=== PATIENT | male | born 1940 | race Caucasian/White ===

== ENCOUNTER 2018-12-15 13:26 | Emergency (ER) | payer MEDICARE, SELFPAY ==
[2018-12-15 13:25] VITALS: BP 139/80; PULSE 85; RESP 14; TEMP 36.7; O2SAT 100; BMI 24.3
--- NOTE | 2018-12-15 14:52 | ED.GIBLEED ---
HPI - GI Bleed <Grace Kahn PA-C - Last Filed: 12/15/18 21:17> General Chief complaint: GI Bleed Stated complaint: REAR END ISSUES Time Seen by Provider: 12/15/18 15:08 Source: patient Mode of arrival: ambulatory Limitations: no limitations History of Present Illness HPI Narrative: This 78-year-old gentleman comes to ED today due to feeling like he has a plumbing change . His recalls him getting up this morning in telling her that he needed to come to the emergency department due to a sensation of tubes hanging from his bottom. He states that he is feeling well currently without any new problems, and this sensation is actually better now. He noted that his brief was quite shredded when he woke up that he wears for urinary incontinence. He states that he did have 1 episode of diarrhea yesterday morning, none since (no bowel movement yet today). He denies any abdominal pain, nausea or vomiting. He has not noted any blood in his stools yesterday. His appetite is normal. He has not had chills or sweats. He denies any pain anywhere currently. Related Data Home Medications Medication Instructions Recorded Confirmed ascorbic acid (vitamin C) 500 mg PO DAILY 12/15/18 12/15/18 aspirin 81 mg PO DAILY 12/15/18 12/15/18 cholecalciferol (vitamin D3) 1,000 unit PO DAILY 12/15/18 12/15/18 [Vitamin D3] cyanocobalamin (vitamin B-12) 500 mcg PO DAILY 12/15/18 12/15/18 [Vitamin B-12] multivitamin 1 tab PO DAILY 12/15/18 12/15/18 Allergies Allergy/AdvReac Type Severity Reaction Status Date / Time hydromorphone [From Dilaudid] Allergy Verified 12/15/18 13:41 Review of Systems <Grace Kahn PA-C - Last Filed: 12/15/18 21:17> Review of Systems ROS Unobtainable: All systems reviewed & are unremarkable except as noted in HPI and below Exam <Grace Kahn PA-C - Last Filed: 12/15/18 21:17> Narrative Exam Narrative: GENERAL APPEARANCE: Patient sitting comfortably, in no distress. LUNGS: Clear to auscultation bilaterally. HEART: Rate and rhythm regular without murmur, normal S1 and S2, no S3 or S4. ABDOMEN: Soft, nontender, nondistended, +bowel sounds x4 quadrants RECTAL: The brief that patient is wearing is partly shredded and detached around the rectal area and there is a fair amount of dried stool on it. There is no prolapse or foreign body visible. On internal exam no masses or foreign body encountered. Initial Vital Signs Initial Vital Signs: Vital Signs Temperature 98.1 F 12/15/18 13:25 Pulse Rate 85 12/15/18 13:25 Respiratory Rate 14 12/15/18 13:25 Blood Pressure 139/80 12/15/18 13:25 Pulse Oximetry 100 12/15/18 13:25 <Nish Gentile DO - Last Filed: 12/16/18 07:42> Initial Vital Signs Initial Vital Signs: Vital Signs Temperature 98.1 F 12/15/18 13:25 Pulse Rate 85 12/15/18 13:25 Respiratory Rate 14 12/15/18 13:25 Blood Pressure 139/80 12/15/18 13:25 Pulse Oximetry 100 12/15/18 13:25 Course <Grace Kahn PA-C - Last Filed: 12/15/18 21:17> Vital Signs - 8 hr 12/15/18 13:25 12/15/18 15:35 Temperature 98.1 F Pulse Rate 85 74 Respiratory Rate 14 16 Blood Pressure 139/80 Blood Pressure [Right Arm] 133/87 Pulse Oximetry 100 100 <Nish Gentile DO - Last Filed: 12/16/18 07:42> Vital Signs - 8 hr 12/15/18 13:25 12/15/18 15:35 Temperature 98.1 F Pulse Rate 85 74 Respiratory Rate 14 16 Blood Pressure 139/80 Blood Pressure [Right Arm] 133/87 Pulse Oximetry 100 100 Discharge Plan Departure Patient Disposition: Home Clinical Impression: Foreign body in anus and rectum, sequela Discharge Date/Time: 12/15/18 15:37 Interventions: ED Discharge Assessment Last Done: 12/15/18 15:36 Activity Restrictions/Additional Instructions: Since you are feeling well today, you can return home. From what you have described to me and what I see, I agree with you that it is very likely that part of your brief had shredded and was temporarily stuck in your bottom. The brief that you were wearing today was quite torn up and had a lot of old stool on it, so this is probably what you felt when you woke up. This likely happened when you were asleep. You may wish to use moist wipes to help with cleaning if needed. Since you are not having any symptoms now such as abdominal pain, vomiting, or fever, you can resume your usual activities. It sounds like your diarrhea was temporary since it only happened once yesterday and not at all today. If your bowel movements are not back to normal in the next few days, please follow-up with your PCP, and if you do have any of the concerning symptoms that we talked about such as profuse vomiting, abdominal pain, or fever, please return to the emergency department Prescriptions: No Action multivitamin Tablet 1 tab PO DAILY RF: 0 aspirin 81 mg Tablet,Delayed Release (Dr/Ec) 81 mg PO DAILY RF: 0 cyanocobalamin (vitamin B-12) [Vitamin B-12] 500 mcg Tablet 500 mcg PO DAILY RF: 0 ascorbic acid (vitamin C) 500 mg Capsule, Extended Release 500 mg PO DAILY RF: 0 cholecalciferol (vitamin D3) [Vitamin D3] 1,000 unit Tablet 1,000 unit PO DAILY RF: 0 Referrals: Bill Alarcon MD [Primary Care Provider] - <Nish Gentile DO - Last Filed: 12/16/18 07:42> Cosign ED Attending Alexys Attestation: I was available for consultation during this patient's emergency department encounter
[2018-12-15 15:35] VITALS: BP 133/87; PULSE 74; RESP 16; O2SAT 100
== END 2018-12-15 15:37 | disposition home or self-care (01) ==
PROVIDERS: Emergency Provider Internal Medicine; PCP Internal Medicine
DX: T18.5XXS Foreign body in anus and rectum, sequela (principal)
CPT/HCPCS: 99282

== ENCOUNTER 2019-01-02 15:21 | Emergency (ER) | payer MEDICARE, SELFPAY ==
[2019-01-02 15:34] VITALS: BP 150/93; PULSE 78; RESP 20; TEMP 36.1; O2SAT 100
--- NOTE | 2019-01-02 16:15 | PC.NURSE ---
attempt to assess patient. I removed all clothing and placed patient in gown. Patient has dry skin, appears to have been wearing his socks for multiple days, and appears to have not bathed in a while. Patient refused to take off brief and would like to wait for doctor. When asked patient why he is here he tells me he has drains and they are not working, states he has tinus problems and points to his genitals. also states he has a coil in his arm that blocks things that was placed in the 80s. When i ask questions patient seems confused and is unable to answer the question that I have asked. Patient refuses further assessment until the provider can evaluate.
[2019-01-02 16:20] VITALS: BP 126/81; PULSE 73; RESP 18; TEMP 36.8; O2SAT 99
[2019-01-02 17:00] VITALS: BP 132/82; PULSE 69; O2SAT 99
--- NOTE | 2019-01-02 17:06 | ED_ITS ---
HPI - Male Genitourinary <DONALD Rodriguez - Last Filed: 01/02/19 22:11> General Chief complaint: Urogenital-Male Stated complaint: URINARY ISSUES, BOWL MOVEMENT ISSUES Time Seen by Provider: 01/02/19 16:15 Source: patient Mode of arrival: ambulatory Limitations: no limitations History of Present Illness HPI Narrative: 78-year-old male with history of prostate cancer and is a nonsmoker here for complaint of redness and irritation to his scrotal area over the past several days. He wears diapers due to having incontinence post prostatectomy secondary to prostate cancer. He reports that he has not changed his diaper in the last 2 weeks. He denies any urinary symptoms. No fevers or chills. No nausea vomiting. Positive p.o. intake. When asked the patient why he he has not changed his diaper for that amount of timeframe patient states I dont have a good answer for you. He denies any trauma to the area. No abdominal pain. No flank pain. MD Complaint: other Related Data Home Medications Medication Instructions Recorded Confirmed ascorbic acid (vitamin C) 500 mg PO DAILY 12/15/18 01/02/19 aspirin 81 mg PO DAILY 12/15/18 01/02/19 cholecalciferol (vitamin D3) 1,000 unit PO DAILY 12/15/18 01/02/19 [Vitamin D3] cyanocobalamin (vitamin B-12) 500 mcg PO DAILY 12/15/18 01/02/19 [Vitamin B-12] multivitamin 1 tab PO DAILY 12/15/18 01/02/19 Previous Rx's Medication Instructions Recorded ketoconazole See Rx Instructions .ROUTE 01/02/19 .COMPLEX #30 gram zinc oxide See Rx Instructions .ROUTE 01/02/19 .COMPLEX #99 gram Allergies Allergy/AdvReac Type Severity Reaction Status Date / Time hydromorphone [From Dilaudid] Allergy Verified 12/15/18 13:41 Review of Systems <DONALD Rodriguez - Last Filed: 01/02/19 22:11> Constitutional Denies chills, Denies fatigue, Denies fever(s), Denies lethargy and Denies weakness Eyes Denies change in vision, Denies eye discharge, Denies irritation and Denies loss of vision ENT Ears, Nose, Mouth, and Throat: Denies change in voice, Denies neck pain and Denies sore throat Cardiovascular Denies dyspnea and Denies dyspnea on exertion Respiratory Denies cough, Denies dyspnea, Denies dyspnea on exertion and Denies wheezing Gastrointestinal Gastrointestinal: Denies abdominal pain, Denies change in bowel habits, Denies diarrhea, Denies nausea and Denies vomiting Genitourinary Comments: Redness and irritation to the scrotal area Musculoskeletal Denies neck pain Integumentary/Breasts Denies pruritus, Denies erythema, Denies rash and Denies wounds Neurologic Denies confusion, Denies loss of vision and Denies weakness Psychiatric Denies anxiety, Denies confusion, Denies depression, Denies homicidal ideation and Denies suicidal ideation Endocrine Denies fatigue and Denies flushing Hematologic/Lymphatic Denies easy bruising Allergic/Immunologic Denies wheezing PFSH <DONALD Rodriguez - Last Filed: 01/02/19 22:11> Medical History HTN (hypertension) (Chronic) History of prostate cancer (Chronic) Incontinence (Chronic) Surgical History History of prostatectomy (Resolved) History of squamous cell carcinoma excision (Resolved) Family History Other Family history non-contributory Social History Smoking Status: Never smoker Family History Other Family history non-contributory Social History Smoking Status: Never smoker Exam <DONALD Rodriguez - Last Filed: 01/02/19 22:11> Initial Vital Signs Initial Vital Signs: Vital Signs Temperature 96.9 F L 01/02/19 15:34 Pulse Rate 78 01/02/19 15:34 Respiratory Rate 20 01/02/19 15:34 Blood Pressure 150/93 H 01/02/19 15:34 Pulse Oximetry 100 01/02/19 15:34 Const General: cooperative and well developed Nutritional Appearance: well nourished Orientation: alert, awake, oriented x3 and not confused HENMT Mouth: oral mucosae normal and moist mucous membranes Eyes Conjunctivae: conjunctivae normal Sclera: sclerae normal Pupils: PERRL EOM: EOM intact bilaterally Resp Effort & Inspection: normal respiratory effort, able to speak in complete sentences, no respiratory distress and no use of accessory muscles Auscultation: clear to auscultation bilaterally, no rales, no rhonchi and no wheezes Cardio Rate: regular rate Rhythm: regular rhythm Heart Sounds: no click, no gallops, no murmurs and no rubs Other: Erythema to the scrotal area. No open lesions. No discharge. Skin General: no rashes or lesions noted, No jaundice and No petechiae Neuro General: alert, oriented x3, gait normal and no focal motor deficits Speech: speech normal <Yani Payan DO - Last Filed: 01/06/19 07:11> Initial Vital Signs Initial Vital Signs: Vital Signs Temperature 96.9 F L 01/02/19 15:34 Pulse Rate 78 01/02/19 15:34 Respiratory Rate 20 01/02/19 15:34 Blood Pressure 150/93 H 01/02/19 15:34 Pulse Oximetry 100 01/02/19 15:34 Course <DONALD Rodriguez - Last Filed: 01/02/19 22:11> Vital Signs - 8 hr 01/02/19 15:34 01/02/19 16:20 01/02/19 17:00 Temperature 96.9 F L 98.3 F Pulse Rate 78 73 69 Respiratory Rate 20 18 Blood Pressure 150/93 H Blood Pressure [Right Arm] 126/81 132/82 Pulse Oximetry 100 99 99 01/02/19 18:00 Temperature Pulse Rate 79 Respiratory Rate Blood Pressure Blood Pressure [Right Arm] 156/88 H Pulse Oximetry 100 <Yani Payan DO - Last Filed: 01/06/19 07:11> Vital Signs - 8 hr 01/02/19 15:34 01/02/19 16:20 01/02/19 17:00 Temperature 96.9 F L 98.3 F Pulse Rate 78 73 69 Respiratory Rate 20 18 Blood Pressure 150/93 H Blood Pressure [Right Arm] 126/81 132/82 Pulse Oximetry 100 99 99 01/02/19 18:00 Temperature Pulse Rate 79 Respiratory Rate Blood Pressure Blood Pressure [Right Arm] 156/88 H Pulse Oximetry 100 MDM - Male Genitourinary <DONALD Rodriguez - Last Filed: 01/02/19 22:11> [facility] Narrative Medical decision making narrative: Will treat for Anette with ketoconazole and also zinc oxide. Patient is instructed to change his diaper daily and keep area dry to whom irritation to the area. Follow up with primary care provider later this week. For any worsening symptoms return to the emergency room. Patient is staying in [facility] in [facility] and is looking for care facility for him to help with assisted living. Discharge Plan Departure Patient Disposition: Home Clinical Impression: Anette infection of genital region Discharge Date/Time: 01/02/19 18:48 Interventions: ED Discharge Assessment Last Done: 01/02/19 18:46 Instructions: Yeast Infection-Skin Activity Restrictions/Additional Instructions: Signs and symptoms presents as a fungal irritation to the genital area and dermatitis secondary to being moist and expose to urine and feces. Ensure your changing your diapers often. Keep area clean and dry. You are prescribed an antifungal creams use as directed. Follow up with primary care provider. Return emergency room for worsening symptoms. Prescriptions: New zinc oxide 15 % cream See Rx Instructions .ROUTE .COMPLEX Qty: 99 RF: 0 ketoconazole 2 % cream See Rx Instructions .ROUTE .COMPLEX Qty: 30 RF: 0 No Action multivitamin Tablet 1 tab PO DAILY RF: 0 aspirin 81 mg Tablet,Delayed Release (Dr/Ec) 81 mg PO DAILY RF: 0 cyanocobalamin (vitamin B-12) [Vitamin B-12] 500 mcg Tablet 500 mcg PO DAILY RF: 0 ascorbic acid (vitamin C) 500 mg Capsule, Extended Release 500 mg PO DAILY RF: 0 cholecalciferol (vitamin D3) [Vitamin D3] 1,000 unit Tablet 1,000 unit PO DAILY RF: 0 Referrals: Bill Alarcon MD [Primary Care Provider] - <Yani Payan DO - Last Filed: 01/06/19 07:11> Cosign ED Attending Rosetteature Attestation: I was immediately available in the department for consultation. This documentation has been reviewed and I agree with assessment and plan. Supervised by Yani Payan DO
[2019-01-02 18:00] VITALS: BP 156/88; PULSE 79; O2SAT 100
--- NOTE | 2019-01-02 18:21 | CM.SWNOTE ---
ED CHESS INSTRUCTOR NOTE Precipitant: Pt came to the emergency room due to some concerns re redness in his scrotum area. The only reason ED CHESS INSTRUCTOR became involved was there was an initial concern about whether there was self neglect and if it warranted a call to APS. Home situation/supports: Pt and his live in a 3 story home [place] where they have lived for over 40 years. They have been staying at the [facility] for the last couple of weeks both attending doctors visits and looking into Assisted Living Facilities for the pt. Initially they did not disclose this information and CLOTH PRINTER HELPER inquired why they were in [place] and had not [place]. Pt mentioned that PT suggested a walker or cane and he spoke of planning to receive PT services in [place]. At that point, pt's shared the plan for him to go to an [facility], hopefully temporarily. Intervention: CLOTH PRINTER HELPER gathered information, and provided both supportive and reflective listening. Pt spoke of these not being the gupta years. They no longer have any friends as all of their friends were older than them and are . Pt has a brother and a sister in [place], but it did not appear that they had a close relationship. Pt's does not have any close relationships. 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 Once pt and his revealed that they were remaining in [place] because of the plan to go to an GROUP HOME, they seemed much more forthcoming in their conversation and were no longer vague. Goal Pt is being taken back to the [facility] with his and driven by police. The taxi had stopped providing service this evening due to the winter weather conditions. It was determined that APS was not necessary as pt is alert, oriented, decisional and both he and his are jointly problem solving, aware that the pt is in need of increased care and support. No further SW needs noted. Discharge Planning/Care Management ED Crisis Response Assessment Start: 01/02/19 18:15 Freq: Status: Active Protocol: Document 01/02/19 18:15 (Rec: 01/02/19 18:21 [id number]) ED Crisis Response Assessment CHESS INSTRUCTOR Assessment Type Other Reason for CHESS INSTRUCTOR Referral question about whether APS was neeed Referred by JIMBO Harris Presenting Problem It was unclear why pt came to the emergency room, but it seemed as though the main reason was some redness in the scrotum area. Mental health diagnosis none known. VOA/CMS check No Suicidal thoughts No Thoughts of harm to others No Risk factor comments declining health Relevant Medical History prostate cancer Crisis Plan Pt to go back to [facility] with his . Resources Provided none needed. Action taken Sent home: family/friends Additional Comment It was thought that pt might need APS as there was some concern that pt and were both cnfused and that she is the caregiver. After ED CHESS INSTRUCTOR met with pt, it did not seem as though they were confused as much as avoidant. Pt's frequently stated You ask a lot of questions. It turned out that pt is in process of going into an assisted living facility which is why they have been in [place] for a few weeks. Pt's stated that her hsuband has a deposit at [facility] and they are awaiting a 1 bedroom because right now they only have 2 suites.
== END 2019-01-02 18:48 | disposition home or self-care (01) ==
PROVIDERS: Emergency Provider Nurse Practitioner Family; PCP Internal Medicine
DX: B37.49 Other urogenital candidiasis (principal)
CPT/HCPCS: 99283

== ENCOUNTER 2019-01-17 19:44 | Observation (INO) | payer MEDICARE, SELFPAY ==
[2019-01-17 19:45] VITALS: BP 162/96; PULSE 87; RESP 20; TEMP 36.6; O2SAT 100
[2019-01-17 19:51] VITALS: BP 162/96; PULSE 87; RESP 20; TEMP 36.6; O2SAT 100
--- NOTE | 2019-01-17 20:01 | PC.NURSE ---
Attempted to call to inform her that patient is here. Busy signal. Will try to call at a different time.
--- NOTE | 2019-01-17 20:36 | ED.AMS ---
HPI - Altered Mental Status General Chief Complaint: Altered Mental Status Stated Complaint: Confused Time Seen by Provider: 01/17/19 19:46 Source: patient, EMS and RN notes reviewed Mode of arrival: EMS Limitations: altered mental status History of Present Illness HPI narrative: 78-year-old male nonsmoker presents by EMS after staff at his assisted found him to be acting quite different than his baseline tonight. He had no focal neurologic findings but was confused and under Ng nonsensical words and was found to require significant assistance ambulating. He normally is fully conversive and ambulates without difficulty. He does get a bit confused and tired in the evening with slow and purposeful ambulation but he can get out about. There is no obvious source and the patient has had no fever no injury and no change in medications. MD complaint: altered mental status Onset (ago): hour(s) Timing confirmed by: caregiver Severity: moderate Consistency of symptoms: constant Associated symptoms: denies other symptoms Related Data Home Medications Medication Instructions Recorded Confirmed aspirin 81 mg PO DAILY 12/15/18 01/17/19 cholecalciferol (vitamin D3) 1,000 unit PO DAILY 12/15/18 01/17/19 [Vitamin D3] cyanocobalamin (vitamin B-12) 500 mcg PO DAILY 12/15/18 01/17/19 [Vitamin B-12] Previous Rx's Medication Instructions Recorded ketoconazole See Rx Instructions .ROUTE 01/02/19 .COMPLEX #30 gram zinc oxide See Rx Instructions .ROUTE 01/02/19 .COMPLEX #99 gram Allergies Allergy/AdvReac Type Severity Reaction Status Date / Time hydromorphone [From Dilaudid] Allergy Verified 12/15/18 13:41 Review of Systems Review of Systems ROS Unobtainable: Unobtainable due to mental status/LOC Constitutional Denies chills, Denies fever(s), Denies lethargy and Denies weakness Eyes Denies change in vision, Denies eye discharge, Denies irritation and Denies loss of vision ENT Ears, Nose, Mouth, and Throat: Denies change in voice, Denies neck pain and Denies sore throat Cardiovascular Denies chest pain, Denies irregular heart rhythm, Denies lightheadedness, Denies palpitations, Denies dyspnea, Denies dyspnea on exertion and Denies orthopnea Respiratory Denies cough, Denies dyspnea, Denies dyspnea on exertion and Denies wheezing Gastrointestinal Gastrointestinal: Denies abdominal pain, Denies change in bowel habits, Denies diarrhea, Denies nausea and Denies vomiting Genitourinary Denies hematuria, Denies flank pain, Denies urinary incontinence and Denies urinary urgency Musculoskeletal Denies neck pain Integumentary/Breasts Denies pruritus, Denies erythema, Denies rash and Denies wounds Neurologic Denies confusion, Denies loss of vision and Denies weakness Psychiatric Denies anxiety, Denies confusion, Denies depression, Denies homicidal ideation and Denies suicidal ideation Endocrine Denies palpitations Hematologic/Lymphatic Denies easy bruising Allergic/Immunologic Denies wheezing Exam Narrative Exam Narrative: GENERAL: 78-year-old male is pleasantly confused but in no obvious or significant distress. He is well cared for and not disheveled. There are no obvious focal neurologic findings HEAD: Atraumatic. Normocephalic. No temporal or scalp tenderness. EYES: Pupils equal round and reactive. Extraocular motions intact. No scleral icterus. No injection or drainage. ENT: Nose without bleeding, purulent drainage or septal hematoma. Throat without erythema, tonsillar hypertrophy or exudate. Uvula midline. Airway patent. NECK: Trachea midline. No JVD or lymphadenopathy. Supple, nontender, no meningeal signs. CARDIOVASCULAR: Regular rate and rhythm without murmurs, gallops, or rubs. RESPIRATORY: Clear to auscultation. Breath sounds equal bilaterally. No wheezes, rales, or rhonchi. GASTROINTESTINAL: Abdomen soft, non-tender, nondistended. No hepato-splenomegaly, or palpable masses. No guarding. EXTREMITIES: No clubbing, cyanosis, or edema. No joint tenderness, effusion, or edema noted. BACK: Nontender without deformity or crepitance. No flank tenderness. SKIN: No rash or erythema. Initial Vital Signs Initial Vital Signs: Vital Signs Temperature 97.8 F 01/17/19 19:45 Pulse Rate 87 01/17/19 19:45 Respiratory Rate 20 01/17/19 19:45 Blood Pressure 162/96 H 01/17/19 19:45 Pulse Oximetry 100 01/17/19 19:45 Course Orders Ordered: ED Orders 01/17/19 20:38 XR chest 1V Stat 01/17/19 20:39 CT head/brain wo con Stat 01/17/19 21:04 Acetaminophen Stat Complete Blood Count AUTO DIFF Stat Comprehensive Metabolic Panel Stat Ethanol (ETOH) Stat Lactate (Lactic Acid) Stat Partial Thromboplastin Time Stat Procalcitonin Urgent Prolactin Stat Prothrombin Time INR Stat Salicylate Stat Thyroid Stimulating Hormone Stat Troponin I Stat 01/17/19 22:08 Urine Drug Screen, Rapid Stat 01/17/19 23:41 Consult to Occupational Therapy Evaluate & Treat Consult to Physical Therapy Evaluate & Treat 01/17/19 23:42 Consult to Speech Therapy Evaluate & Treat 01/18/19 MR stroke Routine 01/18/19 05:00 Basic Metabolic Panel DAILY Complete Blood Count AUTO DIFF DAILY 01/19/19 05:00 Basic Metabolic Panel DAILY Complete Blood Count AUTO DIFF DAILY 01/20/19 05:00 Basic Metabolic Panel DAILY 01/21/19 05:00 Basic Metabolic Panel DAILY Acetaminophen (Tylenol) 650 mg PO Q6HR PRN PRN Reason: As Needed for Fever/Mild Pain Last Admin: 01/18/19 01:36 Dose: 650 mg Aspirin (Aspirin Ec) 81 mg PO DAILY [facility] Enoxaparin Sodium (Lovenox) 40 mg SUBCUT DAILY [facility] Sodium Chloride (Normal Saline 0.9%) 1,000 mls @ 125 mls/hr IV CONT MELBA Last Admin: 01/18/19 04:47 Dose: 125 mls/hr Admin: 01/18/19 01:31 Dose: Not Given Ketoconazole (Nizoral 2% Cream (15 Gm)) 1 applic TOP DAILY [facility] Ondansetron HCl (Zofran) 4 mg IV Q8HR PRN PRN Reason: Nausea And Vomiting Pantoprazole Sodium (Protonix) 20 mg PO 0600 [facility] Sodium Chloride (Normal Saline 0.9% Flush) 10 ml IV PRN PRN PRN Reason: Flush Discontinued Medications Sodium Chloride (Normal Saline 0.9%) 1,000 mls @ 150 mls/hr IV CONT MELBA Last Infusion: 01/18/19 04:47 Dose: 125 mls/hr Infusion: 01/18/19 01:30 Dose: 125 mls/hr Admin: 01/17/19 21:11 Dose: 150 mls/hr Vital Signs - 8 hr 01/17/19 21:15 01/17/19 22:24 01/17/19 23:00 Temperature Pulse Rate 79 83 78 Respiratory Rate 18 16 16 Blood Pressure Blood Pressure [Right Arm] 128/81 136/94 H 132/88 Pulse Oximetry 100 99 100 01/17/19 23:30 01/18/19 00:00 01/18/19 01:07 Temperature 98.4 F 98 F Pulse Rate 81 82 82 Respiratory Rate 16 15 16 Blood Pressure 147/77 H Blood Pressure [Right Arm] 139/82 128/77 Pulse Oximetry 98 97 95 01/18/19 01:27 Temperature 98.0 F Pulse Rate 82 Respiratory Rate 16 Blood Pressure 147/77 H Blood Pressure [Right Arm] Pulse Oximetry 95 MDM - Altered Mental Status Differential Diagnosis Likely altered mental status Medical Records Attestation: I reviewed the patient's medical records. Lab Data Attestation: I reviewed the patient's lab results. Result diagrams: 01/17/19 21:04 01/17/19 21:04 Lab Results 01/17/19 01/17/19 01/17/19 Range/Units 21:04 21:04 21:04 WBC 6.3 (4.5-11.0) X10^3/uL RBC 4.40 L (4.5-5.9) X10^6/uL Hgb 13.4 L (13.5-17.5) g/dL Hct 39.7 L (41-53) % MCV 90.4 (80-100) fL MCH 30.4 (26-34) PG MCHC 33.6 (30-36) % RDW 14.3 (11.6-14.8) % Plt Count 170 (150-400) X10^3/uL Neut % (Auto) 65.0 (50-75) % Lymph % (Auto) 20.5 L (25-40) % [place] % (Auto) 10.3 (3-14) % Eos % (Auto) 3.6 (2-4) % Baso % (Auto) 0.6 (0-2) % Neut # (Auto) 4100 (4389-7788) /uL Lymph # (Auto) 1300 (0126-0296) /uL [place] # (Auto) 600 (0-900) /uL Eos # (Auto) 200 (0-450) /uL Baso # (Auto) 0 (0-100) /uL PT 12.1 (10.1-12.7) SECONDS INR 1.1 (0.9-1.3) APTT 30 (26.4-36.2) SECONDS Sodium 141 (137-145) mmol/L Potassium 3.8 (3.4-5.1) mmol/L Chloride 105 (98-107) mmol/L Carbon Dioxide 30 (22-32) mmol/L BUN 22 H (9-20) mg/dL Creatinine 0.90 (0.66-1.25) mg/dL Estimated GFR > 60.0 (>60) mL/min BUN/Creatinine Ratio 24.4 H (6-22) Glucose 87 (80-110) mg/dL Lactate (0.7-2.1) mmol/L Calcium 9.2 (8.4-10.2) mg/dL Total Bilirubin 0.5 (0.2-1.3) mg/dL AST 30 (17-59) IU/L ALT 32 (21-72) IU/L Alkaline Phosphatase 76 (38-126) U/L Troponin I < 0.012 (0.01-0.034) ng/mL Total Protein 6.7 (6.3-8.2) g/dL Albumin 3.8 (3.5-5.0) g/dL Globulin 2.9 (1.7-4.1) g/dL Albumin/Globulin Ratio 1.3 (1.0-2.8) Procalcitonin (<0.5) ng/mL TSH (0.47-4.68) uIU/mL Prolactin 18.8 H (3.7-17.9) ng/mL Salicylates < 1.0 (<20) mg/dL Urine Opiates Screen (Negative) Ur Oxycodone Screen (Negative) Urine Methadone Screen (Negative) Acetaminophen < 10 L (10-30) ug/mL Ur Barbiturates Screen (Negative) U Tricyclic Antidepress (Negative) Ur Phencyclidine Scrn (Negative) Ur Amphetamines Screen (Negative) U Methamphetamines Scrn (Negative) Ur MDMA Scrn (Ecstasy) (Negative) U Benzodiazepines Scrn (Negative) Urine Cocaine Screen (Negative) U Marijuana (THC) Screen (Negative) Ethyl Alcohol < 10 mg/dL 01/17/19 01/17/19 01/17/19 Range/Units 21:04 21:04 21:04 WBC (4.5-11.0) X10^3/uL RBC (4.5-5.9) X10^6/uL Hgb (13.5-17.5) g/dL Hct (41-53) % MCV (80-100) fL MCH (26-34) PG MCHC (30-36) % RDW (11.6-14.8) % Plt Count (150-400) X10^3/uL Neut % (Auto) (50-75) % Lymph % (Auto) (25-40) % [place] % (Auto) (3-14) % Eos % (Auto) (2-4) % Baso % (Auto) (0-2) % Neut # (Auto) (8721-9922) /uL Lymph # (Auto) (4593-5904) /uL [place] # (Auto) (0-900) /uL Eos # (Auto) (0-450) /uL Baso # (Auto) (0-100) /uL PT (10.1-12.7) SECONDS INR (0.9-1.3) APTT (26.4-36.2) SECONDS Sodium (137-145) mmol/L Potassium (3.4-5.1) mmol/L Chloride (98-107) mmol/L Carbon Dioxide (22-32) mmol/L BUN (9-20) mg/dL Creatinine (0.66-1.25) mg/dL Estimated GFR (>60) mL/min BUN/Creatinine Ratio (6-22) Glucose (80-110) mg/dL Lactate 0.8 (0.7-2.1) mmol/L Calcium (8.4-10.2) mg/dL Total Bilirubin (0.2-1.3) mg/dL AST (17-59) IU/L ALT (21-72) IU/L Alkaline Phosphatase (38-126) U/L Troponin I (0.01-0.034) ng/mL Total Protein (6.3-8.2) g/dL Albumin (3.5-5.0) g/dL Globulin (1.7-4.1) g/dL Albumin/Globulin Ratio (1.0-2.8) Procalcitonin < 0.05 (<0.5) ng/mL TSH 1.89 (0.47-4.68) uIU/mL Prolactin (3.7-17.9) ng/mL Salicylates (<20) mg/dL Urine Opiates Screen (Negative) Ur Oxycodone Screen (Negative) Urine Methadone Screen (Negative) Acetaminophen (10-30) ug/mL Ur Barbiturates Screen (Negative) U Tricyclic Antidepress (Negative) Ur Phencyclidine Scrn (Negative) Ur Amphetamines Screen (Negative) U Methamphetamines Scrn (Negative) Ur MDMA Scrn (Ecstasy) (Negative) U Benzodiazepines Scrn (Negative) Urine Cocaine Screen (Negative) U Marijuana (THC) Screen (Negative) Ethyl Alcohol mg/dL 01/17/19 Range/Units 22:08 WBC (4.5-11.0) X10^3/uL RBC (4.5-5.9) X10^6/uL Hgb (13.5-17.5) g/dL Hct (41-53) % MCV (80-100) fL MCH (26-34) PG MCHC (30-36) % RDW (11.6-14.8) % Plt Count (150-400) X10^3/uL Neut % (Auto) (50-75) % Lymph % (Auto) (25-40) % [place] % (Auto) (3-14) % Eos % (Auto) (2-4) % Baso % (Auto) (0-2) % Neut # (Auto) (2880-8586) /uL Lymph # (Auto) (7026-3727) /uL [place] # (Auto) (0-900) /uL Eos # (Auto) (0-450) /uL Baso # (Auto) (0-100) /uL PT (10.1-12.7) SECONDS INR (0.9-1.3) APTT (26.4-36.2) SECONDS Sodium (137-145) mmol/L Potassium (3.4-5.1) mmol/L Chloride (98-107) mmol/L Carbon Dioxide (22-32) mmol/L BUN (9-20) mg/dL Creatinine (0.66-1.25) mg/dL Estimated GFR (>60) mL/min BUN/Creatinine Ratio (6-22) Glucose (80-110) mg/dL Lactate (0.7-2.1) mmol/L Calcium (8.4-10.2) mg/dL Total Bilirubin (0.2-1.3) mg/dL AST (17-59) IU/L ALT (21-72) IU/L Alkaline Phosphatase (38-126) U/L Troponin I (0.01-0.034) ng/mL Total Protein (6.3-8.2) g/dL Albumin (3.5-5.0) g/dL Globulin (1.7-4.1) g/dL Albumin/Globulin Ratio (1.0-2.8) Procalcitonin (<0.5) ng/mL TSH (0.47-4.68) uIU/mL Prolactin (3.7-17.9) ng/mL Salicylates (<20) mg/dL Urine Opiates Screen Negative (Negative) Ur Oxycodone Screen Negative (Negative) Urine Methadone Screen Negative (Negative) Acetaminophen (10-30) ug/mL Ur Barbiturates Screen Negative (Negative) U Tricyclic Antidepress Negative (Negative) Ur Phencyclidine Scrn Negative (Negative) Ur Amphetamines Screen Negative (Negative) U Methamphetamines Scrn Negative (Negative) Ur MDMA Scrn (Ecstasy) Negative (Negative) U Benzodiazepines Scrn Negative (Negative) Urine Cocaine Screen Negative (Negative) U Marijuana (THC) Screen Negative (Negative) Ethyl Alcohol mg/dL Urine Dip Bedside Urine Glucose Negative Bedside Urine Bilirubin - Negative Bedside Urine Ketone - Negative Urine Specific [place] 1.020 Bedside Urine Occult Blood - Negative Bedside Urine pH 7.0 Bedside Urine Protein +/- 15 Bedside Urine Urobilinogen - Negative Bedside Urine Nitrite - Negative Bedside Urine Leukocytes - Negative Esterase Imaging Data CT scan - head: Radiologist's impression: Jimi Montes 78 M [address] [place] [address] CT Scan Report Signed Patient: SimonJimi CMR#: [id number] : 8Acct:[id number] Age/Sex: 78 / MDate of Service: 01/17/19 Loc: ED Accession Number: [id number] Procedure: CT head/brain wo con Ordering Provider: Bryan Massey D.O. PROCEDURE: CT HEAD/BRAIN WO CON INDICATIONS: mental status change, confusion TECHNIQUE: Noncontrast 4.5 mm thick angled axial sections acquired from the foramen magnum to the vertex, with coronal and sagittal reformats. For radiation dose reduction, the following was used: automated exposure control, adjustment of mA and/or kV according to patient size. COMPARISON: [facility], CT, HEAD W&WO CONTRAST, 06/15/2016, 13:30. FINDINGS: Image quality: Excellent. CSF spaces: Basal cisterns are patent. No extra-axial fluid collections. The ventricles are symmetric in size and shape. Brain: No intracranial bleeds or masses. There is cerebral volume loss for age, with resultant ventricular and sulcal prominence. There are periventricular and deep white matter chronic small vessel ischemic changes. There is intracranial internal carotid artery atherosclerosis. Skull and face: Calvarium and visualized facial bones appear intact, without suspicious lesions. Sinuses: Visualized sinuses and mastoids are clear. IMPRESSION: Stable head CT without evidence of acute intracranial process. Dictated by: Humaira Armstrong M.D. on 01/17/2019 at 21:22 Approved by: Humaira Armstrong M.D. on 01/17/2019 at 21:27 [facility] Narrative Medical decision making narrative: 78-year-old male presents with departure from baseline mental status. He normally is able to ambulate without difficulty and speak clearly and this evening nursing staff notes that he requires assistance with ambulation and is not communicating nearly as clearly as normal. There is no obvious cause based on history, physical, imaging, or labs. Based on conversation with nursing staff he is clearly not at his baseline and will require hospitalization for further evaluation and observation Discharge Plan Departure Patient Disposition: Admitted as Observation Clinical Impression: Altered mental status Qualifiers: Altered mental status type: delirium Qualified Code(s): R41.0 - Disorientation, unspecified Discharge Date/Time: 01/18/19 01:00 Interventions: ED Discharge Assessment Last Done: 01/18/19 00:24 Admit Date/Time: 01/17/19 22:31 Admit Provider: Henry Rodríguez
--- NOTE | 2019-01-17 20:38 | DI.RAD.S_ITS ---
PROCEDURE: XR CHEST 1V INDICATIONS: weakness, sleepy TECHNIQUE: One view of the chest was acquired. COMPARISON: None. FINDINGS: Surgical changes and devices: None. Lungs and pleura: Lungs are mildly hyperinflated with coarse interstitial markings, but otherwise clear. No pleural effusions or pneumothorax. Mediastinum: Mediastinal contours appear normal. Heart size is normal. Bones and chest wall: No suspicious bony lesions. Overlying soft tissues appear unremarkable. IMPRESSION: Mild emphysema/asthma. No focal pneumonia. Dictated by: Humaira Armstrong M.D. on 01/17/2019 at 21:29 Approved by: Humaira Armstrong M.D. on 01/17/2019 at 21:30
--- NOTE | 2019-01-17 20:39 | DI.CT.S_ITS ---
PROCEDURE: CT HEAD/BRAIN WO CON INDICATIONS: mental status change, confusion TECHNIQUE: Noncontrast 4.5 mm thick angled axial sections acquired from the foramen magnum to the vertex, with coronal and sagittal reformats. For radiation dose reduction, the following was used: automated exposure control, adjustment of mA and/or kV according to patient size. COMPARISON: [facility], CT, HEAD W&WO CONTRAST, 06/15/2016, 13:30. FINDINGS: Image quality: Excellent. CSF spaces: Basal cisterns are patent. No extra-axial fluid collections. The ventricles are symmetric in size and shape. Brain: No intracranial bleeds or masses. There is cerebral volume loss for age, with resultant ventricular and sulcal prominence. There are periventricular and deep white matter chronic small vessel ischemic changes. There is intracranial internal carotid artery atherosclerosis. Skull and face: Calvarium and visualized facial bones appear intact, without suspicious lesions. Sinuses: Visualized sinuses and mastoids are clear. IMPRESSION: Stable head CT without evidence of acute intracranial process. Dictated by: Humaira Armstrong M.D. on 01/17/2019 at 21:22 Approved by: Humaira Armstrong M.D. on 01/17/2019 at 21:27
[2019-01-17] MEDS: SODIUM CHLORIDE 0.9% 1,000 ML 150 ML IV (21:11)
[2019-01-17 21:15] VITALS: BP 128/81; PULSE 79; RESP 18; O2SAT 100
[2019-01-17 21:16] LABS: Add Manual Diff / Slide Review NO; Basophils Absolute Auto 0 /uL (0-100); Basophils Percent Auto 0.6 % (0-2); Eosinophils Absolute Auto 200 /uL (0-450); Eosinophils Percent Auto 3.6 % (2-4); Hematocrit 39.7 % (41-53); Hemoglobin 13.4 g/dL (13.5-17.5); Lymphocytes Absolute Auto 1300 /uL (1100-4500); Lymphocytes Percent Auto 20.5 % (25-40); Mean Corpuscular HGB Conc 33.6 % (30-36); Mean Corpuscular Hemoglobin 30.4 PG (26-34); Mean Corpuscular Volume 90.4 fL (80-100); Monocytes Absolute Auto 600 /uL (0-900); Monocytes Percent Auto 10.3 % (3-14); Neutrophils Absolute Auto 4100 /uL (1500-7000); Platelet Count 170 X10^3/uL (150-400); Red Cell Distribution Width 14.3 % (11.6-14.8); White Blood Cell Count 6.3 X10^3/uL (4.5-11.0)
[2019-01-17 21:31] LABS: INR 1.1 (0.9-1.3); Prothrombin Time 12.1 SECONDS (10.1-12.7)
[2019-01-17 21:33] LABS: HEMOLYSIS < 15 (0-50)
[2019-01-17 21:34] LABS: PTT Partial Thromboplastin Tim 30 SECONDS (26.4-36.2)
[2019-01-17 21:38] LABS: Lactate (Lactic Acid) 0.8 mmol/L (0.7-2.1)
[2019-01-17 21:40] LABS: Alanine Aminotransferase 32 IU/L (21-72); Albumin 3.8 g/dL (3.5-5.0); Albumin Globulin Ratio 1.3 (1.0-2.8); Alkaline Phosphatase 76 U/L (38-126); Aspartate Aminotransferase 30 IU/L (17-59); BUN Creatinine Ratio 24.4 (6-22); Bilirubin Total 0.5 mg/dL (0.2-1.3); Blood Urea Nitrogen 22 mg/dL (9-20); Calcium 9.2 mg/dL (8.4-10.2); Carbon Dioxide 30 mmol/L (22-32); Chloride 105 mmol/L (98-107); Estimated Glomerular Filt Rate > 60.0 mL/min (>60); Ethanol (ETOH) < 10 mg/dL; Globulin 2.9 g/dL (1.7-4.1); Glucose 87 mg/dL (80-110); Potassium 3.8 mmol/L (3.4-5.1); Sodium 141 mmol/L (137-145); Total Protein 6.7 g/dL (6.3-8.2)
[2019-01-17 21:50] LABS: Acetaminophen < 10 ug/mL (10-30)
[2019-01-17 21:51] LABS: Salicylate < 1.0 mg/dL (<20); Troponin I < 0.012 ng/mL (0.01-0.034)
[2019-01-17 22:03] LABS: Prolactin 18.8 ng/mL (3.7-17.9)
--- NOTE | 2019-01-17 22:13 | PC.NURSE ---
Nursing staff called at [facility]. nursing staff report that that yesterday when he arrived he could walk on his own, speak clearly and was not confused. staff reports that this evening he was eating dinner and spilling food all over himself. they also report that he was trying to explain why there was food all over himself and not making any sense and slurring his words. staff report that when the patient left with EMS he was improving. Staff also report that when trying to transfer the patient he could not stand on his own and was much weaker than when he arrived. provider aware and no new orders at this time.
[2019-01-17 22:24] VITALS: BP 136/94; PULSE 83; RESP 16; O2SAT 99
[2019-01-17 22:25] LABS: Urine Amphetamines Negative (Negative); Urine Barbiturates Negative (Negative); Urine Benzodiazepines Negative (Negative); Urine Cocaine Negative (Negative); Urine MDMA Negative (Negative); Urine Methadone Negative (Negative); Urine Methamphetamines Negative (Negative); Urine Morphine/Opi cutoff 2000 Negative (Negative); Urine Oxycodone Negative (Negative); Urine Phencyclidine Negative (Negative); Urine Tetrahydrocannabinol Negative (Negative); Urine Tricyclic Antidepressant Negative (Negative)
[2019-01-17 22:32] LABS: Thyroid Stimulating Hormone 1.89 uIU/mL (0.47-4.68)
[2019-01-17 23:00] VITALS: BP 132/88; PULSE 78; RESP 16; O2SAT 100
[2019-01-17 23:30] VITALS: BP 139/82; PULSE 81; RESP 16; O2SAT 98
--- NOTE | 2019-01-17 23:41 | PC.NURSE ---
attempted to call report and nurse states that she will call me back
[2019-01-18] VITALS (8 sets, daily range): BP systolic 106–147; BP diastolic 57–83; PULSE 65–82; RESP 15–20; TEMP 36.1–37.2; O2SAT 95–100; BMI 25.4
--- NOTE | 2019-01-18 | DI.US.S_ITS ---
PROCEDURE: US PERIPH VENOUS LOW EXTREM RT INDICATIONS: MARKED LEG SWELLING, ENTIRE RLE TECHNIQUE: Real-time imaging, as well as color and pulse Doppler interrogation, were performed of the lower extremity deep veins from the inguinal ligament to the popliteal fossa. COMPARISON: None. FINDINGS: The deep veins are normally compressible, and free of intraluminal thrombus. Color and pulse Doppler demonstrate normal phasic intraluminal flow. There is normal augmentation response to distal compression maneuver. IMPRESSION: No visualized deep venous thrombosis. Dictated by: Glendy Westfall M.D. on 01/18/2019 at 9:46 Approved by: Glendy Westfall M.D. on 01/18/2019 at 9:47
--- NOTE | 2019-01-18 | DI.MRI.S_ITS ---
PROCEDURE: MR STROKE Pre- and post-contrast brain MRI, non-contrast brain MR angiogram, pre- and postcontrast neck MR angiogram INDICATIONS: Altered mental status, dysphagia TECHNIQUE: Brain: Noncontrast axial T1 spin echo, axial T2 fast spin echo, sagittal and axial FLAIR, coronal T2 fast spin echo, axial gradient echo, axial diffusion and ADC through the brain. After the administration of contrast, axial 3D VIBE of the cranial vasculature and brain. Brain MRA: Non-contrast 3-D time of flight MR angiogram, with multiple qfllixr-lclmadchm-adrgfwqiqb (MIP) reformats performed. Neck MRA: Axial and sagittal TruFISP through the neck. Coronal dynamic MR angiogram during administration of contrast in the arterial and venous phases, with 3-dimenstional lqnuuco-zrsslywrb-duhfpkktfl (MIP) reformats constructed from subtraction images. COMPARISON: [facility], CT, HEAD W&WO CONTRAST, 06/15/2016, 13:30. [facility], CT, CT HEAD/BRAIN WO CON, 01/17/2019, 20:33. [facility], MR, BRAIN W&WO CONTRAST, 06/26/2016, 15:15. [facility], CR, XR CHEST 1V, 01/17/2019, 20:48. FINDINGS: Image quality: Limited examination due to motion artifacts. BRAIN: CSF spaces: Ventricles are normal in size and shape. Basal cisterns are patent. No extra-axial fluid collections. Brain: No intracranial bleeds or mass effects. Tovar-white matter interface is normal. Diffusion weighted images show no acute ischemic insults. Brainstem appears normal. Normal intravascular flow voids are present. No abnormal intracranial enhancement. Skull and face: Calvarial marrow signal is normal. Orbits appear normal. Sinuses: Sinuses and mastoids are clear. BRAIN MR ANGIOGRAM: Anterior circulation: Intracranial internal carotid arteries are normal in size and enhancement. The flow within the paired anterior cerebral arteries is normal and symmetric. The flow within the middle cerebral arteries is normal and symmetric. The anterior communicating artery is seen. No stenoses, occlusions, or aneurysms. Posterior circulation: The visualized portions of the vertebral arteries demonstrate normal caliber, and join to form a normal appearing basilar artery. The flow within the posterior cerebral arteries is normal and symmetric. No stenoses, occlusions, or aneurysms. NECK MR ANGIOGRAM: Carotids: Great vessels demonstrate a conventional anatomy as they arise from the aortic arch. The origins of the common carotid arteries appear patent. The calibers and courses of both common carotid arteries are normal. The bifurcation regions appear normal bilaterally. The internal carotid arteries demonstrate normal course and caliber. Posterior circulation: The origins of the vertebral arteries appear patent. More superior portions of both vertebral arteries demonstrate normal course and caliber, and join to form a normal appearing basilar artery. Miscellaneous: Subclavian arteries appear patent. Pre-contrast images through the neck show no soft tissue abnormalities. There is a nodular density in the right lower lung zone, probably atelectasis. IMPRESSION: Limited examination due to motion artifacts. BRAIN MRI: 1. Severely limited examination. No definitive acute stroke. 2. Cerebral volume loss and chronic microvascular ischemic changes. BRAIN MR ANGIOGRAM: 1. No high-grade stenosis or occlusion in anterior circulations. 2. No high-grade stenosis or occlusion in posterior circulations. NECK MR ANGIOGRAM: 1 No high-grade stenosis or occlusion in cervical carotid arteries bilaterally. 2. No high-grade stenosis or occlusion in cervical vertebral arteries bilaterally. Dictated by: Fela Gill M.D. on 01/19/2019 at 14:02 Approved by: Fela Gill M.D. on 01/19/2019 at 14:12
[2019-01-18 00:12] LABS: Procalcitonin < 0.05 ng/mL (<0.5)
--- NOTE | 2019-01-18 00:14 | PC.NURSE ---
attempted to call report. RN in a patients room. RN to call back
[2019-01-18] MEDS: ACETAMINOPHEN 325 MG TABLET 650 MG PO ×2 (01:36→08:50)
--- NOTE | 2019-01-18 02:03 | PM.HP.1 ---
History of Present Illness Date Patient Seen: 01/17/19 Time Patient Seen: 23:30 Chief complaint: Confused Narrative: This is an 78-year-old male patient with a history hypertension, prostate CA status post prostatectomy with associated incontinence of stool skin cancer and scrotal candidiasis was sent to the emergency by his caregivers at [facility] for mental status. Patient is presently residing at [facility] in assisted living where he is typically alert, ambulatory and conversant that today developed confusion difficulty eating and weakness. They are caregivers say he would say inappropriate words at inappropriate times. Was no focal or unilateral weakness noted but is a far deviation from his baseline functioning prompting his evaluation. The patient also reports right leg pain with marked swelling of the entire length of the right leg with warmth and redness of the right lower extremity. 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 At that time he told provider that he use a diaper related urinary incontinence but had not changed it for 2 weeks. When asked why he was unable to provide an answer. The patient is under the care of Dr. Alarcon. The patient denies injuries or falls, recent illness fevers or chills. Denies headaches or dizziness, no difficulty hearing and describes visual changes over the last 1 and half years currently wearing glasses. He denies head congestion or sore throat and reports no difficulty chewing or swallowing. Denies chest pain or palpitations, shortness of breath cough wheezing. He denies abdominal pain, nausea or vomiting. He is chronically incontinent of stool since his prostatectomy. 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 Patient arrived in the emergency department at 7:45 p.m. at that time was afebrile with temperature of 97.8?, a blood pressure of 162/96, heart rate of 87, respirations of 20 saturating at 100% on room air. Laboratory testing was completed which finds a normal CBC with a white count of 6.3, hemoglobin 13.4 and hematocrit 39.7 with no shift. His CMP is within normal range Sebastian does have BUN of 22 and a creatinine of 0 9 appearing somewhat dehydrated. Patient was started on IV normal saline emergency department 150 cc an hour. Head CT was completed which identifies chronic small vessel changes and a chest x-ray revealing mild emphysema. His toxicology screen and lactate were negative has an INR of 1.1. He does have a slightly elevated prolactin 18.8. The patient is admitted for altered mental status of unknown etiology. Patient History Medical History Candidiasis of scrotum (Acute) HTN (hypertension) (Chronic) History of prostate cancer (Chronic) Incontinence (Chronic) Surgical History History of prostatectomy (Resolved) History of squamous cell carcinoma excision (Resolved) Family History Other Family history non-contributory Social History household members: other Smoking Status: Never smoker alcohol intake: current Family & Social History Family History Other Family history non-contributory Social History: household members other Prior Living Arrangements Assisted Living Safety & Behavioral: Feels Safe in Current Yes Environment Been Physically Hurt or No Threatened By a Person Suicidal Ideation Description None Tobacco & Substance use: Smoking Status Never smoker alcohol intake current alcohol intake frequency a few times a week Substance Use Type does not use Comment: Patient is a somewhat difficult historian and 10 gentleman thought however he is but not currently living with his as he is residing in an extended care facility. Family medical history is unable to be obtained due to altered mentation. Smoking: The patient reports having never smoked Alcohol: Patient endorses consuming near daily alcohol Substance use: Patient denies recreation pharmaceuticals herbal products or cannabis use Advanced directive: The patient is unable to articulate a code status and has no code status on file. Call was placed to [facility] and the cellphone provided to reach the spouse both cause were unanswered. The patient will be full code at this time until clarification can be obtained. Meds Home Medications Medication Instructions Recorded Confirmed Type aspirin 81 mg PO DAILY 12/15/18 01/17/19 History cholecalciferol (vitamin D3) 1,000 unit PO DAILY 12/15/18 01/17/19 History [Vitamin D3] cyanocobalamin (vitamin B-12) 500 mcg PO DAILY 12/15/18 01/17/19 History [Vitamin B-12] ketoconazole See Rx Instructions .ROUTE 01/02/19 01/17/19 Rx .COMPLEX #30 gram zinc oxide See Rx Instructions .ROUTE 01/02/19 01/17/19 Rx .COMPLEX #99 gram Allergies Allergy/AdvReac Type Severity Reaction Status Date / Time hydromorphone [From Dilaudid] Allergy Verified 12/15/18 13:41 Review of Systems Review of Systems All systems reviewed & are unremarkable except as noted in HPI and below Exam Vital Signs (past 8 hours): - 01/17/19 19:45 01/17/19 19:51 01/17/19 21:15 Temperature 97.8 F 97.8 F Pulse Rate 87 87 79 Respiratory Rate 20 20 18 Blood Pressure 162/96 H Blood Pressure [Right Arm] 162/96 H 128/81 Pulse Oximetry 100 100 100 01/17/19 22:24 01/17/19 23:00 01/17/19 23:30 Temperature Pulse Rate 83 78 81 Respiratory Rate 16 16 16 Blood Pressure Blood Pressure [Right Arm] 136/94 H 132/88 139/82 Pulse Oximetry 99 100 98 01/18/19 00:00 01/18/19 01:07 01/18/19 01:27 Temperature 98.4 F 98 F 98.0 F Pulse Rate 82 82 82 Respiratory Rate 15 16 16 Blood Pressure 147/77 H 147/77 H Blood Pressure [Right Arm] 128/77 Pulse Oximetry 97 95 95 Oxygen Delivery Method Room Air Oxygen Flow Rate 0 Narrative Exam Narrative: General: Well developed acutely gentleman lying on stretcher, afebrile, well nourished, in no acute distress. Skin: Warm, dry, pink HEENT: Normocephalic, PERRLA, EOMs intact without nystagmus, conjunctiva moist, sclera is anicteric, no sinus tenderness to percussion, no rhinorrhea, oropharynx is moist and pink without lesions or exudate, uvula midline, no cervical lymphadenopathy Neck: Restricted range of motion, prominent posterior cervical musculature without pain on palpation, no nuchal rigidity, no masses or step-offs, no thyromegaly, trachea midline, no carotid bruits or JVD, no supraclavicular lymphadenopathy Cardiac: Regular rate and rhythm, S1-S2, no murmur, no gallops or rubs, 2+ radial pulse, 4+ edema right leg, 1+ left leg Chest: Symmetrical movement, no pain on AP or lateral compression, breathing non labored, no cough present, BS equal bilateral without coarseness, crackles or wheezes Abdomen: Soft, no tenderness or guarding, no masses or organomegaly, no flank or suprapubic pain, BS normal. Genitourinary: Incontinence brief in place, red scrotal rash Back: No pain on palpation Extremities: MOEx4, 4+ pitting edema right leg extending to the groin, 1+ edema left leg, no synovial effusions or deformities, strength 4/5 Neuro: Alert to person place date and month, variable recall, follows commands, cranial nerves II-XII grossly intact, board writer are equal bilateral neuropathy bilateral lower extremities to the level of the knees and symmetrical Psych: Soft spoken, tangential thought, stable mood and congruent affect Objective Labs Result Diagrams: 01/17/19 21:04 01/17/19 21:04 Labs: Laboratory Results - last 24 hr 01/17/19 01/17/19 01/17/19 21:04 21:04 21:04 WBC 6.3 RBC 4.40 L Hgb 13.4 L Hct 39.7 L MCV 90.4 MCH 30.4 MCHC 33.6 RDW 14.3 Plt Count 170 Neut % (Auto) 65.0 Lymph % (Auto) 20.5 L Humphreys % (Auto) 10.3 Eos % (Auto) 3.6 Baso % (Auto) 0.6 Neut # (Auto) 4100 Lymph # (Auto) 1300 Humphreys # (Auto) 600 Eos # (Auto) 200 Baso # (Auto) 0 PT 12.1 INR 1.1 APTT 30 Sodium 141 Potassium 3.8 Chloride 105 Carbon Dioxide 30 BUN 22 H Creatinine 0.90 Estimated GFR > 60.0 BUN/Creatinine Ratio 24.4 H Glucose 87 Lactate Calcium 9.2 Total Bilirubin 0.5 AST 30 ALT 32 Alkaline Phosphatase 76 Troponin I < 0.012 Total Protein 6.7 Albumin 3.8 Globulin 2.9 Albumin/Globulin Ratio 1.3 Procalcitonin TSH Prolactin 18.8 H Salicylates < 1.0 Urine Opiates Screen Ur Oxycodone Screen Urine Methadone Screen Acetaminophen < 10 L Ur Barbiturates Screen U Tricyclic Antidepress Ur Phencyclidine Scrn Ur Amphetamines Screen U Methamphetamines Scrn Ur MDMA Scrn (Ecstasy) U Benzodiazepines Scrn Urine Cocaine Screen U Marijuana (THC) Screen Ethyl Alcohol < 10 02/26/19 02/26/19 02/26/19 21:04 21:04 21:04 WBC RBC Hgb Hct MCV MCH MCHC RDW Plt Count Neut % (Auto) Lymph % (Auto) Humphreys % (Auto) Eos % (Auto) Baso % (Auto) Neut # (Auto) Lymph # (Auto) Humphreys # (Auto) Eos # (Auto) Baso # (Auto) PT INR APTT Sodium Potassium Chloride Carbon Dioxide BUN Creatinine Estimated GFR BUN/Creatinine Ratio Glucose Lactate 0.8 Calcium Total Bilirubin AST ALT Alkaline Phosphatase Troponin I Total Protein Albumin Globulin Albumin/Globulin Ratio Procalcitonin < 0.05 TSH 1.89 Prolactin Salicylates Urine Opiates Screen Ur Oxycodone Screen Urine Methadone Screen Acetaminophen Ur Barbiturates Screen U Tricyclic Antidepress Ur Phencyclidine Scrn Ur Amphetamines Screen U Methamphetamines Scrn Ur MDMA Scrn (Ecstasy) U Benzodiazepines Scrn Urine Cocaine Screen U Marijuana (THC) Screen Ethyl Alcohol 01/17/19 22:08 WBC RBC Hgb Hct MCV MCH MCHC RDW Plt Count Neut % (Auto) Lymph % (Auto) Humphreys % (Auto) Eos % (Auto) Baso % (Auto) Neut # (Auto) Lymph # (Auto) Humphreys # (Auto) Eos # (Auto) Baso # (Auto) PT INR APTT Sodium Potassium Chloride Carbon Dioxide BUN Creatinine Estimated GFR BUN/Creatinine Ratio Glucose Lactate Calcium Total Bilirubin AST ALT Alkaline Phosphatase Troponin I Total Protein Albumin Globulin Albumin/Globulin Ratio Procalcitonin TSH Prolactin Salicylates Urine Opiates Screen Negative Ur Oxycodone Screen Negative Urine Methadone Screen Negative Acetaminophen Ur Barbiturates Screen Negative U Tricyclic Antidepress Negative Ur Phencyclidine Scrn Negative Ur Amphetamines Screen Negative U Methamphetamines Scrn Negative Ur MDMA Scrn (Ecstasy) Negative U Benzodiazepines Scrn Negative Urine Cocaine Screen Negative U Marijuana (THC) Screen Negative Ethyl Alcohol Assessment & Plan Assessment & Plan narrative: This is an 78-year-old male was admitted to the hospital for altered mental status of unknown etiology. 1. Altered mental status, acute -patient with significant deviation from baseline performance which is articulate, conversant and ambulatory -vital signs are essentially within normal limits save mild hypertension at 147/77 on most recent pressure patient remains afebrile -laboratory workup is essentially unremarkable, added procalcitonin which came back negative at less than 0.05 -head CT demonstrates only chronic small vessel changes and chest x-ray only mild emphysema. -high BUN creatinine ratio the patient has dehydration, will continue IV fluid normal saline at 125 mL an hour -presentation may be reflective of TIA as the patent appears to have improved from reported impairments at his care facility, will obtain MR stroke protocol. 2. Right leg lymphedema, chronic -patient with 4+ swelling, pitting edema right leg extending to the inguinal fold -patient reports longstanding since having his prostatectomy -warmth and redness right lower extremity does not appear cellulitic -lactate is negative, procalcitonin is negative with a normal white count -no pain on palpation however will obtain venous duplex of the right lower extremity rule out DVT -patient is on aspirin 81 mg daily which will be continued as well as Lovenox 40 mg daily DVT prophylaxis 3. Hypertension, chronic -blood pressure remain only elevated at 147/77. -patient with good renal function a creatinine of 0 9 -patient will be being rehydrated and will monitor blood pressure and consider antihypertensives if needed 4. Genital candidiasis, acute -treatment initiated on ER visit 01/06/2019 -will continue application of ketoconazole daily 5. Prostate cancer, chronic -status post prostatectomy and chemotherapy, no evidence of recurrence 6. Neuropathy lower extremities, chronic -as best able to ascertain from the patient interview is that the neuropathy occurred as sequelae to chemotherapy -patient denies neuropathic pain only decreased sensation. The patient is admitted to the hospital due to severity of symptoms and potential for complications. Patient will be admitted observation status with anticipated length stay less than 2 midnights. Scores GCS Mildred coma scale eye opening: Spontaneous Mildred coma scale verbal response: Orientated Mildred coma scale motor response: Obey commands Kendall coma scale total score: 15
--- NOTE | 2019-01-18 02:10 | P.HP_ITS ---
History of Present Illness Date Patient Seen: 01/17/19 Time Patient Seen: 23:30 Chief complaint: Confused Narrative: This is an 78-year-old male patient with a history hypertension, prostate CA status post prostatectomy with associated incontinence of stool skin cancer and scrotal candidiasis was sent to the emergency by his caregivers at [facility] for mental status. Patient is presently residing at [facility] in assisted living where he is typically alert, ambulatory and conversant that today developed confusion difficulty eating and weakness. They are caregivers say he would say inappropriate words at inappropriate times. Was no focal or unilateral weakness noted but is a far deviation from his baseline functioning prompting his evaluation. The patient also reports right leg pain with marked swelling of the entire length of the right leg with warmth and redne ss of the right lower extremity. 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 At that time he told provider that he use a diaper related urinary incontinence but had not changed it for 2 weeks. When asked why he was unable to provide an answer. The patient is under the care of Dr. Alarcon. The patient denies injuries or falls, recent illness fevers or chills. Denies headaches or dizziness, no difficulty hearing and describes visual changes over the last 1 and half years currently wearing glasses. He denies head congestion or sore throat and reports no difficulty chewing or swallowing. Denies chest pain or palpitations, shortness of breath cough wheezing. He denies abdominal pain, nausea or vomiting. He is chronically incontinent of stool since his prostatectomy. 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 Patient arrived in the emergency department at 7:45 p.m. at that time was afebrile with temperature of 97.8?, a blood pressure of 162/96, heart rate of 87, respirations of 20 saturating at 100% on room air. Laboratory testing was completed which finds a normal CBC with a white count of 6.3, hemoglobin 13.4 and hematocrit 39.7 with no shift. His CMP is within normal range Sebastian does have BUN of 22 and a creatinine of 0 9 appearing somewhat dehydrated. Patient was started on IV normal saline emergency department 150 cc an hour. Head CT was completed which identifies chronic small vessel changes and a chest x-ray revealing mild emphysema. His toxicology screen and lactate were negative has an INR of 1.1. He does have a slightly elevated prolactin 18.8. The patient is admitted for altered mental status of unknown etiology. Patient History Medical History Candidiasis of scrotum (Acute) HTN (hypertension) (Chronic) History of prostate cancer (Chronic) Incontinence (Chronic) Surgical History History of prostatectomy (Resolved) History of squamous cell carcinoma excision (Resolved) Family History Other Family history non-contributory Social History household members: other Smoking Status: Never smoker alcohol intake: current Family & Social History Family History Other Family history non-contributory Social History: household members other Prior Living Arrangements Assisted Living Safety & Behavioral: Feels Safe in Current Yes Environment Been Physically Hurt or No Threatened By a Person Suicidal Ideation Description None Tobacco & Substance use: Smoking Status Never smoker alcohol intake current alcohol intake frequency a few times a week Substance Use Type does not use Comment: Patient is a somewhat difficult historian and 10 gentleman thought however he is but not currently living with his as he is residing in an extended care facility. Family medical history is unable to be obtained due to altered mentation. Smoking: The patient reports having never smoked Alcohol: Patient endorses consuming near daily alcohol Substance use: Patient denies recreation pharmaceuticals herbal products or cannabis use Advanced directive: The patient is unable to articulate a code status and has no code status on file. Call was placed to [facility] and the cellphone provided to reach the spouse both cause were unanswered. The patient will be full code at this time until clarification can be obtained. Meds Home Medications Medication Instructions Recorded Confirmed Type aspirin 81 mg PO DAILY 12/15/18 01/17/19 History cholecalciferol (vitamin D3) 1,000 unit PO DAILY 12/15/18 01/17/19 History [Vitamin D3] cyanocobalamin (vitamin B-12) 500 mcg PO DAILY 12/15/18 01/17/19 History [Vitamin B-12] ketoconazole See Rx Instructions .ROUTE 01/02/19 01/17/19 Rx .COMPLEX #30 gram zinc oxide See Rx Instructions .ROUTE 01/02/19 01/17/19 Rx .COMPLEX #99 gram Allergies Allergy/AdvReac Type Severity Reaction Status Date / Time hydromorphone [From Dilaudid] Allergy Verified 12/15/18 13:41 Review of Systems Review of Systems All systems reviewed & are unremarkable except as noted in HPI and below Exam Vital Signs (past 8 hours): - 01/17/19 19:45 01/17/19 19:51 01/17/19 21:15 Temperature 97.8 F 97.8 F Pulse Rate 87 87 79 Respiratory Rate 20 20 18 Blood Pressure 162/96 H Blood Pressure [Right Arm] 162/96 H 128/81 Pulse Oximetry 100 100 100 01/17/19 22:24 01/17/19 23:00 01/17/19 23:30 Temperature Pulse Rate 83 78 81 Respiratory Rate 16 16 16 Blood Pressure Blood Pressure [Right Arm] 136/94 H 132/88 139/82 Pulse Oximetry 99 100 98 01/18/19 00:00 01/18/19 01:07 01/18/19 01:27 Temperature 98.4 F 98 F 98.0 F Pulse Rate 82 82 82 Respiratory Rate 15 16 16 Blood Pressure 147/77 H 147/77 H Blood Pressure [Right Arm] 128/77 Pulse Oximetry 97 95 95 Oxygen Delivery Method Room Air Oxygen Flow Rate 0 Narrative Exam Narrative: General: Well developed acutely gentleman lying on stretcher, afebrile, well nourished, in no acute distress. Skin: Warm, dry, pink HEENT: Normocephalic, PERRLA, EOMs intact without nystagmus, conjunctiva moist, sclera is anicteric, no sinus tenderness to percussion, no rhinorrhea, oropharynx is moist and pink without lesions or exudate, uvula midline, no cervical lymphadenopathy Neck: Restricted range of motion, prominent posterior cervical musculature without pain on palpation, no nuchal rigidity, no masses or step-offs, no thy romegaly, trachea midline, no carotid bruits or JVD, no supraclavicular lymphadenopathy Cardiac: Regular rate and rhythm, S1-S2, no murmur, no gallops or rubs, 2+ radial pulse, 4+ edema right leg, 1+ left leg Chest: Symmetrical movement, no pain on AP or lateral compression, breathing non labored, no cough present, BS equal bilateral without coarseness, crackles or wheezes Abdomen: Soft, no tenderness or guarding, no masses or organomegaly, no flank or suprapubic pain, BS normal. 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 bilateral neuropathy bilateral lower extremities to the level of the knees and symmetrical Psych: Soft spoken, tangential thought, stable mood and congruent affect Objective Labs Result Diagrams: 01/17/19 21:04 01/17/19 21:04 Labs: Laboratory Results - last 24 hr 01/17/19 01/17/19 01/17/19 21:04 21:04 21:04 WBC 6.3 RBC 4.40 L Hgb 13.4 L Hct 39.7 L MCV 90.4 MCH 30.4 MCHC 33.6 RDW 14.3 Plt Count 170 Neut % (Auto) 65.0 Lymph % (Auto) 20.5 L Fountain % (Auto) 10.3 Eos % (Auto) 3.6 Baso % (Auto) 0.6 Neut # (Auto) 4100 Lymph # (Auto) 1300 Fountain # (Auto) 600 Eos # (Auto) 200 Baso # (Auto) 0 PT 12.1 INR 1.1 APTT 30 Sodium 141 Potassium 3.8 Chloride 105 Carbon Dioxide 30 BUN 22 H Creatinine 0.90 Estimated GFR > 60.0 BUN/Creatinine Ratio 24.4 H Glucose 87 Lactate Calcium 9.2 Total Bilirubin 0.5 AST 30 ALT 32 Alkaline Phosphatase 76 Troponin I < 0.012 Total Protein 6.7 Albumin 3.8 Globulin 2.9 Albumin/Globulin Ratio 1.3 Procalcitonin TSH Prolactin 18.8 H Salicylates < 1.0 Urine Opiates Screen Ur Oxycodone Screen Urine Methadone Screen Acetaminophen < 10 L Ur Barbiturates Screen U Tricyclic Antidepress Ur Phencyclidine Scrn Ur Amphetamines Screen U Methamphetamines Scrn Ur MDMA Scrn (Ecstasy) U Benzodiazepines Scrn Urine Cocaine Screen U Marijuana (THC) Screen Ethyl Alcohol < 10 01/17/19 01/17/19 01/17/19 21:04 21:04 21:04 WBC RBC Hgb Hct MCV MCH MCHC RDW Plt Count Neut % (Auto) Lymph % (Auto) Fountain % (Auto) Eos % (Auto) Baso % (Auto) Neut # (Auto) Lymph # (Auto) Fountain # (Auto) Eos # (Auto) Baso # (Auto) PT INR APTT Sodium Potassium Chloride Carbon Dioxide BUN Creatinine Estimated GFR BUN/Creatinine Ratio Glucose Lactate 0.8 Calcium Total Bilirubin AST ALT Alkaline Phosphatase Troponin I Total Protein Albumin Globulin Albumin/Globulin Ratio Procalcitonin < 0.05 TSH 1.89 Prolactin Salicylates Urine Opiates Screen Ur Oxycodone Screen Urine Methadone Screen Acetaminophen Ur Barbiturates Screen U Tricyclic Antidepress Ur Phencyclidine Scrn Ur Amphetamines Screen U Methamphetamines Scrn Ur MDMA Scrn (Ecstasy) U Benzodiazepines Scrn Urine Cocaine Screen U Marijuana (THC) Screen Ethyl Alcohol 01/17/19 22:08 WBC RBC Hgb Hct MCV MCH MCHC RDW Plt Count Neut % (Auto) Lymph % (Auto) Fountain % (Auto) Eos % (Auto) Baso % (Auto) Neut # (Auto) Lymph # (Auto) Fountain # (Auto) Eos # (Auto) Baso # (Auto) PT INR APTT Sodium Potassium Chloride Carbon Dioxide BUN Creatinine Estimated GFR BUN/Creatinine Ratio Glucose Lactate Calcium Total Bilirubin AST ALT Alkaline Phosphatase Troponin I Total Protein Albumin Globulin Albumin/Globulin Ratio Procalcitonin TSH Prolactin Salicylates Urine Opiates Screen Negative Ur Oxycodone Screen Negative Urine Methadone Screen Negative Acetaminophen Ur Barbiturates Screen Negative U Tricyclic Antidepress Negative Ur Phencyclidine Scrn Negative Ur Amphetamines Screen Negative U Methamphetamines Scrn Negative Ur MDMA Scrn (Ecstasy) Negative U Benzodiazepines Scrn Negative Urine Cocaine Screen Negative U Marijuana (THC) Screen Negative Ethyl Alcohol Assessment & Plan Assessment & Plan narrative: This is an 78-year-old male was admitted to the hospital for altered mental status of unknown etiology. 1. Altered mental status, acute -patient with significant deviation from baseline performance which is articula te, conversant and ambulatory -vital signs are essentially within normal limits save mild hypertension at 147/77 on most recent pressure patient remains afebrile -laboratory workup is essentially unremarkable, added procalcitonin which came back negative at less than 0.05 -head CT demonstrates only chronic small vessel changes and chest x-ray only mild emphysema. -high BUN creatinine ratio the patient has dehydration, will continue IV fluid normal saline at 125 mL an hour -presentation may be reflective of TIA as the patent appears to have improved from reported impairments at his care facility, will obtain MR stroke protocol. 2. Right leg lymphedema, chronic -patient with 4+ swelling, pitting edema right leg extending to the inguinal fold -patient reports longstanding since having his prostatectomy -warmth and redness right lower extremity does not appear cellulitic -lactate is negative, procalcitonin is negative with a normal white count -no pain on palpation however will obtain venous duplex of the right lower extremity rule out DVT -patient is on aspirin 81 mg daily which will be continued as well as Lovenox 40 mg daily DVT prophylaxis 3. Hypertension, chronic -blood pressure remain only elevated at 147/77. -patient with good renal function a creatinine of 0 9 -patient will be being rehydrated and will monitor blood pressure and consider antihypertensives if needed 4. Genital candidiasis, acute -treatment initiated on ER visit 01/06/2019 -will continue application of ketoconazole daily 5. Prostate cancer, chronic -status post prostatectomy and chemotherapy, no evidence of recurrence 6. Neuropathy lower extremities, chronic -as best able to ascertain from the patient interview is that the neuropathy occurred as sequelae to chemotherapy -patient denies neuropathic pain only decreased sensation. The patient is admitted to the hospital due to severity of symptoms and potential for complications. Patient will be admitted observation status with anticipated length stay less than 2 midnights. Scores GCS [place] coma scale eye opening: Spontaneous Mildred coma scale verbal response: Orientated [place] coma scale motor response: Obey commands Mildred coma scale total score: 15
--- NOTE | 2019-01-18 02:16 | PC.ADMIT ---
Addendum entered by Itzel Montenegro R.N. 01/18/19 06:34: Patient has not yet voided so bladder scan done showing 639cc urine. Marcos BENNETT informed and order received for straight cath. Straight cath done with 800cc clear linda urine returned. UA sent to lab. Original Note: Admitted to room 206 per stretcher from ER at 0100. Patient speaks softly so can be difficult to understand. Was oriented to self, BD, month, year and place. Answers some questions appropriately and at other times can be vague with answers. Breath sounds CTA with RA sat of 97%; on continuous pulse oximetry. HRR; on telemetry. Denies nausea. BT present and abdomen is soft. Reportedly can be incontinent of urine so is wearing a pull up. Scrotum is reddened with yeasty odor. Has 2-3+ edema from toes to groin bilaterally with right leg being significantly larger than left. Bilateral lower legs/feet are pink with darkest color medially and anteriorly. Bilateral hands/palms are also reddened. Does complain of 5/10 pain in bilateral LE so medicated with Tylenol. Demonstrates ability to turn himself. Generalized weakness in all extremities. Passed swallow eval but per Marcos BENNETT will maintain NPO status until seen by ST. Patient reports he has been using a cane to ambulate for past month. Right leg wrapped with zakiya for compression as per verbal order from Marcos BENNETT. Discussed plan of care with patient and he verbalizes understanding. Fall risk score is high and bed alarm is activated. [id number] Admission Note: The patient,Jimi Montes,78 y/o, was given written information regarding hospital policies, unit procedures and contact persons. Patient's smoking status: Never smoker. Vital Signs - 8 hr 01/17/19 19:45 01/17/19 19:51 01/17/19 21:15 Temperature 97.8 F 97.8 F Pulse Rate 87 87 79 Respiratory Rate 20 20 18 Blood Pressure 162/96 H Blood Pressure [Right Arm] 162/96 H 128/81 Pulse Oximetry 100 100 100 01/17/19 22:24 01/17/19 23:00 01/17/19 23:30 Temperature Pulse Rate 83 78 81 Respiratory Rate 16 16 16 Blood Pressure Blood Pressure [Right Arm] 136/94 H 132/88 139/82 Pulse Oximetry 99 100 98 01/18/19 00:00 01/18/19 01:07 01/18/19 01:27 Temperature 98.4 F 98 F 98.0 F Pulse Rate 82 82 82 Respiratory Rate 15 16 16 Blood Pressure 147/77 H 147/77 H Blood Pressure [Right Arm] 128/77 Pulse Oximetry 97 95 95
[2019-01-18] MEDS: SODIUM CHLORIDE 0.9% 1,000 ML 125 ML IV ×3 (04:47→22:08)
--- NOTE | 2019-01-18 05:05 | ED_ITS ---
HPI - Altered Mental Status General Chief Complaint: Altered Mental Status Stated Complaint: Confused Time Seen by Provider: 01/17/19 19:46 Source: patient, EMS and RN notes reviewed Mode of arrival: EMS Limitations: altered mental status History of Present Illness HPI narrative: 78-year-old male nonsmoker presents by EMS after staff at his halfway found him to be acting quite different than his baseline tonight. He had no focal neurologic findings but was confused and under Ng nonsensical words and was found to require significant assistance ambulating. He normally is fully conversive and ambulates without difficulty. He does get a bit confused and tired in the evening with slow and purposeful ambulation but he can get out about. There is no obvious source and the patient has had no fever no injury and no change in medications. MD complaint: altered mental status Onset (ago): hour(s) Timing confirmed by: caregiver Severity: moderate Consistency of symptoms: constant Associated symptoms: denies other symptoms Related Data Home Medications Medication Instructions Recorded Confirmed aspirin 81 mg PO DAILY 12/15/18 01/17/19 cholecalciferol (vitamin D3) 1,000 unit PO DAILY 12/15/18 01/17/19 [Vitamin D3] cyanocobalamin (vitamin B-12) 500 mcg PO DAILY 12/15/18 01/17/19 [Vitamin B-12] Previous Rx's Medication Instructions Recorded ketoconazole See Rx Instructions .ROUTE 01/02/19 .COMPLEX #30 gram zinc oxide See Rx Instructions .ROUTE 01/02/19 .COMPLEX #99 gram Allergies Allergy/AdvReac Type Severity Reaction Status Date / Time hydromorphone [From Dilaudid] Allergy Verified 12/15/18 13:41 Review of Systems Review of Systems ROS Unobtainable: Unobtainable due to mental status/LOC Constitutional Denies chills, Denies fever(s), Denies lethargy and Denies weakness Eyes Denies change in vision, Denies eye discharge, Denies irritation and Denies loss of vision ENT Ears, Nose, Mouth, and Throat: Denies change in voice, Denies neck pain and Denies sore throat Cardiovascular Denies chest pain, Denies irregular heart rhythm, Denies lightheadedness, Denies palpitations, Denies dyspnea, Denies dyspnea on exertion and Denies orthopnea Respiratory Denies cough, Denies dyspnea, Denies dyspnea on exertion and Denies wheezing Gastrointestinal Gastrointestinal: Denies abdominal pain, Denies change in bowel habits, Denies diarrhea, Denies nausea and Denies vomiting Genitourinary Denies hematuria, Denies flank pain, Denies urinary incontinence and Denies urinary urgency Musculoskeletal Denies neck pain Integumentary/Breasts Denies pruritus, Denies erythema, Denies rash and Denies wounds Neurologic Denies confusion, Denies loss of vision and Denies weakness Psychiatric Denies anxiety, Denies confusion, Denies depression, Denies homicidal ideation and Denies suicidal ideation Endocrine Denies palpitations Hematologic/Lymphatic Denies easy bruising Allergic/Immunologic Denies wheezing Exam Narrative Exam Narrative: GENERAL: 78-year-old male is pleasantly confused but in no obvious or significant distress. He is well cared for and not disheveled. There are no obvious focal neurologic findings HEAD: Atraumatic. Normocephalic. No temporal or scalp tenderness. EYES: Pupils equal round and reactive. Extraocular motions intact. No scleral icterus. No injection or drainage. ENT: Nose without bleeding, purulent drainage or septal hematoma. Throat without erythema, tonsillar hypertrophy or exudate. Uvula midline. Airway patent. NECK: Trachea midline. No JVD or lymphadenopathy. Supple, nontender, no meningeal signs. CARDIOVASCULAR: Regular rate and rhythm without murmurs, gallops, or rubs. RESPIRATORY: Clear to auscultation. Breath sounds equal bilaterally. No wheezes, rales, or rhonchi. GASTROINTESTINAL: Abdomen soft, non-tender, nondistended. No hepato- splenomegaly, or palpable masses. No guarding. EXTREMITIES: No clubbing, cyanosis, or edema. No joint tenderness, effusion, or edema noted. BACK: Nontender without deformity or crepitance. No flank tenderness. SKIN: No rash or erythema. Initial Vital Signs Initial Vital Signs: Vital Signs Temperature 97.8 F 01/17/19 19:45 Pulse Rate 87 01/17/19 19:45 Respiratory Rate 20 01/17/19 19:45 Blood Pressure 162/96 H 01/17/19 19:45 Pulse Oximetry 100 01/17/19 19:45 Course Orders Ordered: ED Orders 01/17/19 20:38 XR chest 1V Stat 01/17/19 20:39 CT head/brain wo con Stat 01/17/19 21:04 Acetaminophen Stat Complete Blood Count AUTO DIFF Stat Comprehensive Metabolic Panel Stat Ethanol (ETOH) Stat Lactate (Lactic Acid) Stat Partial Thromboplastin Time Stat Procalcitonin Urgent Prolactin Stat Prothrombin Time INR Stat Salicylate Stat Thyroid Stimulating Hormone Stat Troponin I Stat 01/17/19 22:08 Urine Drug Screen, Rapid Stat 01/17/19 23:41 Consult to Occupational Therapy Evaluate & Treat Consult to Physical Therapy Evaluate & Treat 01/17/19 23:42 Consult to Speech Therapy Evaluate & Treat 01/18/19 MR stroke Routine 01/18/19 05:00 Basic Metabolic Panel DAILY Complete Blood Count AUTO DIFF DAILY 01/19/19 05:00 Basic Metabolic Panel DAILY Complete Blood Count AUTO DIFF DAILY 01/20/19 05:00 Basic Metabolic Panel DAILY 01/21/19 05:00 Basic Metabolic Panel DAILY Acetaminophen (Tylenol) 650 mg PO Q6HR PRN PRN Reason: As Needed for Fever/Mild Pain Last Admin: 01/18/19 01:36 Dose: 650 mg Aspirin (Aspirin Ec) 81 mg PO DAILY [facility] Enoxaparin Sodium (Lovenox) 40 mg SUBCUT DAILY [facility] Sodium Chloride (Normal Saline 0.9%) 1,000 mls @ 125 mls/hr IV CONT MELBA Last Admin: 01/18/19 04:47 Dose: 125 mls/hr Admin: 01/18/19 01:31 Dose: Not Given Ketoconazole (Nizoral 2% Cream (15 Gm)) 1 applic TOP DAILY [facility] Ondansetron HCl (Zofran) 4 mg IV Q8HR PRN PRN Reason: Nausea And Vomiting Pantoprazole Sodium (Protonix) 20 mg PO 0600 [facility] Sodium Chloride (Normal Saline 0.9% Flush) 10 ml IV PRN PRN PRN Reason: Flush Discontinued Medications Sodium Chloride (Normal Saline 0.9%) 1,000 mls @ 150 mls/hr IV CONT MELBA Last Infusion: 01/18/19 04:47 Dose: 125 mls/hr Infusion: 01/18/19 01:30 Dose: 125 mls/hr Admin: 01/17/19 21:11 Dose: 150 mls/hr Vital Signs - 8 hr 01/17/19 21:15 01/17/19 22:24 01/17/19 23:00 Temperature Pulse Rate 79 83 78 Respiratory Rate 18 16 16 Blood Pressure Blood Pressure [Right Arm] 128/81 136/94 H 132/88 Pulse Oximetry 100 99 100 01/17/19 23:30 01/18/19 00:00 01/18/19 01:07 Temperature 98.4 F 98 F Pulse Rate 81 82 82 Respiratory Rate 16 15 16 Blood Pressure 147/77 H Blood Pressure [Right Arm] 139/82 128/77 Pulse Oximetry 98 97 95 01/18/19 01:27 Temperature 98.0 F Pulse Rate 82 Respiratory Rate 16 Blood Pressure 147/77 H Blood Pressure [Right Arm] Pulse Oximetry 95 MDM - Altered Mental Status Differential Diagnosis Likely altered mental status Medical Records Attestation: I reviewed the patient's medical records. Lab Data Attestation: I reviewed the patient's lab results. Result diagrams: 01/17/19 21:04 01/17/19 21:04 Lab Results 01/17/19 01/17/19 01/17/19 Range/Units 21:04 21:04 21:04 WBC 6.3 (4.5-11.0) X10^3/uL RBC 4.40 L (4.5-5.9) X10^6/uL Hgb 13.4 L (13.5-17.5) g/dL Hct 39.7 L (41-53) % MCV 90.4 (80-100) fL MCH 30.4 (26-34) PG MCHC 33.6 (30-36) % RDW 14.3 (11.6-14.8) % Plt Count 170 (150-400) X10^3/uL Neut % (Auto) 65.0 (50-75) % Lymph % (Auto) 20.5 L (25-40) % Clark % (Auto) 10.3 (3-14) % Eos % (Auto) 3.6 (2-4) % Baso % (Auto) 0.6 (0-2) % Neut # (Auto) 4100 (5243-7290) /uL Lymph # (Auto) 1300 (7831-7309) /uL Clark # (Auto) 600 (0-900) /uL Eos # (Auto) 200 (0-450) /uL Baso # (Auto) 0 (0-100) /uL PT 12.1 (10.1-12.7) SECONDS INR 1.1 (0.9-1.3) APTT 30 (26.4-36.2) SECONDS Sodium 141 (137-145) mmol/L Potassium 3.8 (3.4-5.1) mmol/L Chloride 105 (98-107) mmol/L Carbon Dioxide 30 (22-32) mmol/L BUN 22 H (9-20) mg/dL Creatinine 0.90 (0.66-1.25) mg/dL Estimated GFR > 60.0 (>60) mL/min BUN/Creatinine Ratio 24.4 H (6-22) Glucose 87 (80-110) mg/dL Lactate (0.7-2.1) mmol/L Calcium 9.2 (8.4-10.2) mg/dL Total Bilirubin 0.5 (0.2-1.3) mg/dL AST 30 (17-59) IU/L ALT 32 (21-72) IU/L Alkaline Phosphatase 76 (38-126) U/L Troponin I < 0.012 (0.01-0.034) ng/mL Total Protein 6.7 (6.3-8.2) g/dL Albumin 3.8 (3.5-5.0) g/dL Globulin 2.9 (1.7-4.1) g/dL Albumin/Globulin Ratio 1.3 (1.0-2.8) Procalcitonin (<0.5) ng/mL TSH (0.47-4.68) uIU/mL Prolactin 18.8 H (3.7-17.9) ng/mL Salicylates < 1.0 (<20) mg/dL Urine Opiates Screen (Negative) Ur Oxycodone Screen (Negative) Urine Methadone Screen (Negative) Acetaminophen < 10 L (10-30) ug/mL Ur Barbiturates Screen (Negative) U Tricyclic Antidepress (Negative) Ur Phencyclidine Scrn (Negative) Ur Amphetamines Screen (Negative) U Methamphetamines Scrn (Negative) Ur MDMA Scrn (Ecstasy) (Negative) U Benzodiazepines Scrn (Negative) Urine Cocaine Screen (Negative) U Marijuana (THC) Screen (Negative) Ethyl Alcohol < 10 mg/dL 01/17/19 01/17/19 01/17/19 Range/Units 21:04 21:04 21:04 WBC (4.5-11.0) X10^3/uL RBC (4.5-5.9) X10^6/uL Hgb (13.5-17.5) g/dL Hct (41-53) % MCV (80-100) fL MCH (26-34) PG MCHC (30-36) % RDW (11.6-14.8) % Plt Count (150-400) X10^3/uL Neut % (Auto) (50-75) % Lymph % (Auto) (25-40) % Clark % (Auto) (3-14) % Eos % (Auto) (2-4) % Baso % (Auto) (0-2) % Neut # (Auto) (8274-6092) /uL Lymph # (Auto) (4064-9120) /uL Clark # (Auto) (0-900) /uL Eos # (Auto) (0-450) /uL Baso # (Auto) (0-100) /uL PT (10.1-12.7) SECONDS INR (0.9-1.3) APTT (26.4-36.2) SECONDS Sodium (137-145) mmol/L Potassium (3.4-5.1) mmol/L Chloride (98-107) mmol/L Carbon Dioxide (22-32) mmol/L BUN (9-20) mg/dL Creatinine (0.66-1.25) mg/dL Estimated GFR (>60) mL/min BUN/Creatinine Ratio (6-22) Glucose (80-110) mg/dL Lactate 0.8 (0.7-2.1) mmol/L Calcium (8.4-10.2) mg/dL Total Bilirubin (0.2-1.3) mg/dL AST (17-59) IU/L ALT (21-72) IU/L Alkaline Phosphatase (38-126) U/L Troponin I (0.01-0.034) ng/mL Total Protein (6.3-8.2) g/dL Albumin (3.5-5.0) g/dL Globulin (1.7-4.1) g/dL Albumin/Globulin Ratio (1.0-2.8) Procalcitonin < 0.05 (<0.5) ng/mL TSH 1.89 (0.47-4.68) uIU/mL Prolactin (3.7-17.9) ng/mL Salicylates (<20) mg/dL Urine Opiates Screen (Negative) Ur Oxycodone Screen (Negative) Urine Methadone Screen (Negative) Acetaminophen (10-30) ug/mL Ur Barbiturates Screen (Negative) U Tricyclic Antidepress (Negative) Ur Phencyclidine Scrn (Negative) Ur Amphetamines Screen (Negative) U Methamphetamines Scrn (Negative) Ur MDMA Scrn (Ecstasy) (Negative) U Benzodiazepines Scrn (Negative) Urine Cocaine Screen (Negative) U Marijuana (THC) Screen (Negative) Ethyl Alcohol mg/dL 01/17/19 Range/Units 22:08 WBC (4.5-11.0) X10^3/uL RBC (4.5-5.9) X10^6/uL Hgb (13.5-17.5) g/dL Hct (41-53) % MCV (80-100) fL MCH (26-34) PG MCHC (30-36) % RDW (11.6-14.8) % Plt Count (150-400) X10^3/uL Neut % (Auto) (50-75) % Lymph % (Auto) (25-40) % Clark % (Auto) (3-14) % Eos % (Auto) (2-4) % Baso % (Auto) (0-2) % Neut # (Auto) (9642-0962) /uL Lymph # (Auto) (2095-1522) /uL Clark # (Auto) (0-900) /uL Eos # (Auto) (0-450) /uL Baso # (Auto) (0-100) /uL PT (10.1-12.7) SECONDS INR (0.9-1.3) APTT (26.4-36.2) SECONDS Sodium (137-145) mmol/L Potassium (3.4-5.1) mmol/L Chloride (98-107) mmol/L Carbon Dioxide (22-32) mmol/L BUN (9-20) mg/dL Creatinine (0.66-1.25) mg/dL Estimated GFR (>60) mL/min BUN/Creatinine Ratio (6-22) Glucose (80-110) mg/dL Lactate (0.7-2.1) mmol/L Calcium (8.4-10.2) mg/dL Total Bilirubin (0.2-1.3) mg/dL AST (17-59) IU/L ALT (21-72) IU/L Alkaline Phosphatase (38-126) U/L Troponin I (0.01-0.034) ng/mL Total Protein (6.3-8.2) g/dL Albumin (3.5-5.0) g/dL Globulin (1.7-4.1) g/dL Albumin/Globulin Ratio (1.0-2.8) Procalcitonin (<0.5) ng/mL TSH (0.47-4.68) uIU/mL Prolactin (3.7-17.9) ng/mL Salicylates (<20) mg/dL Urine Opiates Screen Negative (Negative) Ur Oxycodone Screen Negative (Negative) Urine Methadone Screen Negative (Negative) Acetaminophen (10-30) ug/mL Ur Barbiturates Screen Negative (Negative) U Tricyclic Antidepress Negative (Negative) Ur Phencyclidine Scrn Negative (Negative) Ur Amphetamines Screen Negative (Negative) U Methamphetamines Scrn Negative (Negative) Ur MDMA Scrn (Ecstasy) Negative (Negative) U Benzodiazepines Scrn Negative (Negative) Urine Cocaine Screen Negative (Negative) U Marijuana (THC) Screen Negative (Negative) Ethyl Alcohol mg/dL Urine Dip Bedside Urine Glucose Negative Bedside Urine Bilirubin - Negative Bedside Urine Ketone - Negative Urine Specific Bromide 1.020 Bedside Urine Occult Blood - Negative Bedside Urine pH 7.0 Bedside Urine Protein +/- 15 Bedside Urine Urobilinogen - Negative Bedside Urine Nitrite - Negative Bedside Urine Leukocytes - Negative Esterase Imaging Data CT scan - head: Radiologist's impression: Jimi Montes 78 [address] [place] [id number] CT Scan Report Signed Patient: SimonJimi CMR#: [id number] : 8Acct:[id number] Age/Sex: 78 / MDate of Service: 01/17/19 Loc: ED Accession Number: [id number] Procedure: CT head/brain wo con Ordering Provider: Bryan Massey D.O. PROCEDURE: CT HEAD/BRAIN WO CON INDICATIONS: mental status change, confusion TECHNIQUE: Noncontrast 4.5 mm thick angled axial sections acquired from the foramen magnum to the vertex, with coronal and sagittal reformats. For radiation dose reduction, the following was used: automated exposure control, adjustment of mA and/or kV according to patient size. COMPARISON: [facility], CT, HEAD W&WO CONTRAST, 06/15/2016, 13:30. FINDINGS: Image quality: Excellent. CSF spaces: Basal cisterns are patent. No extra-axial fluid collections. The ventricles are symmetric in size and shape. Brain: No intracranial bleeds or masses. There is cerebral volume loss for age, with resultant ventricular and sulcal prominence. There are periventricular and deep white matter chronic small vessel ischemic changes. There is intracranial internal carotid artery atherosclerosis. Skull and face: Calvarium and visualized facial bones appear intact, without suspicious lesions. Sinuses: Visualized sinuses and mastoids are clear. IMPRESSION: Stable head CT without evidence of acute intracranial process. Dictated by: Humaira Armstrong M.D. on 01/17/2019 at 21:22 Approved by: Humaira Armstrong M.D. on 01/17/2019 at 21:27 [facility] Narrative Medical decision making narrative: 78-year-old male presents with departure from baseline mental status. He normally is able to ambulate without difficulty and speak clearly and this evening nursing staff notes that he requires assistance with ambulation and is not communicating nearly as clearly as normal. There is no obvious cause based on history, physical, imaging, or labs. Based on conversation with nursing staff he is clearly not at his baseline and will require hospitalization for further evaluation and observation Discharge Plan Departure Patient Disposition: Admitted as Observation Clinical Impression: Altered mental status Qualifiers: Altered mental status type: delirium Qualified Code(s): R41.0 - Disorientation, unspecified Discharge Date/Time: 01/18/19 01:00 Interventions: ED Discharge Assessment Last Done: 01/18/19 00:24 Admit Date/Time: 01/17/19 22:31 Admit Provider: Henry Rodríguez
[2019-01-18] MEDS: PANTOPRAZOLE 20 MG TABLET PO (06:05)
[2019-01-18 06:43] LABS: Appearance Urine UA CLEAR; Bilirubin Urine UA NEGATIVE (NEGATIVE); Color Urine UA YELLOW; Glucose Urine UA NEGATIVE (Negative); Ketones Urine UA NEGATIVE (NEGATIVE); Leukocyte Esterase Urine UA NEGATIVE (NEGATIVE); Nitrite Urine UA NEGATIVE (Negative); Occult Blood Urine UA NEGATIVE (Negative); Protein Urine UA NEGATIVE (Negative); RBC Urine None Seen (0-5/HPF); Specific Gravity Urine UA 1.025 (1.000-1.035); Urobilinogen Urine UA 0.2 E.U./dL (0.2)
[2019-01-18 06:53] LABS: Amorphous Sediment Urine 1+; Bacteria Urine Few (2-10); Squamous Epithelial Cell Urine 0-1 /HPF; WBC Urine 0-1/HPF (0-5/HPF)
[2019-01-18 06:54] LABS: Culture Indicated Urine Cult Not Indicated
[2019-01-18 07:26] LABS: Add Manual Diff / Slide Review NO; Basophils Absolute Auto 0 /uL (0-100); Basophils Percent Auto 0.7 % (0-2); Eosinophils Absolute Auto 200 /uL (0-450); Eosinophils Percent Auto 4.9 % (2-4); Hematocrit 36.7 % (41-53); Hemoglobin 12.2 g/dL (13.5-17.5); Lymphocytes Absolute Auto 1100 /uL (1100-4500); Lymphocytes Percent Auto 24.7 % (25-40); Mean Corpuscular HGB Conc 33.1 % (30-36); Mean Corpuscular Hemoglobin 30.1 PG (26-34); Mean Corpuscular Volume 90.9 fL (80-100); Monocytes Absolute Auto 500 /uL (0-900); Monocytes Percent Auto 11.6 % (3-14); Neutrophils Absolute Auto 2600 /uL (1500-7000); Neutrophils Percent Auto 58.1 % (50-75); Platelet Count 119 X10^3/uL (150-400); Red Blood Cell Count 4.04 X10^6/uL (4.5-5.9); White Blood Cell Count 4.5 X10^3/uL (4.5-11.0)
[2019-01-18 07:50] LABS: BUN Creatinine Ratio 27.1 (6-22); Blood Urea Nitrogen 19 mg/dL (9-20); Calcium 8.2 mg/dL (8.4-10.2); Carbon Dioxide 27 mmol/L (22-32); Chloride 106 mmol/L (98-107); Estimated Glomerular Filt Rate > 60.0 mL/min (>60); Glucose 78 mg/dL (80-110); HEMOLYSIS < 15 (0-50); Potassium 3.5 mmol/L (3.4-5.1); Sodium 137 mmol/L (137-145)
[2019-01-18 08:40] LABS: Vitamin B12 525 pg/mL (239-931)
[2019-01-18] MEDS: ASPIRIN EC 81 MG TABLET PO (08:51)
[2019-01-18] MEDS: KETOCONAZOLE 2% CREAM 15 GM 1 APPLIC TOP (08:51)
[2019-01-18] MEDS: ENOXAPARIN 40 MG/0.4 ML SYRINGE SUBCUT (08:53)
--- NOTE | 2019-01-18 10:31 | P.PN_ITS ---
Subjective Date Patient Seen: 01/18/19 Time Patient Seen: 10:25 Interval history: Patient seen at bedside. Patient is AAO times 0, but in no acute distress. He is unable to carry on a conversation, and seems to be talking about nonsense things. No overnight events. Exam Vital Signs (past 8 hours): - 01/18/19 05:48 Temperature 98.9 F Pulse Rate 74 Respiratory Rate 18 Blood Pressure 111/67 Pulse Oximetry 98 Oxygen Delivery Method Room Air Oxygen Flow Rate 0 Narrative Exam Narrative: General: AAO x 0, no acute distress. Maintaining airway. HEENT: PERRLA bilaterally, EOMI bilaterally Neck: Supple CV: Regular rate rhythm, no murmurs or gallops Respiratory: Clear to auscultation bilaterally, no crackles or rhonchi GI: Positive bowel sounds in all 4 quadrants Musculoskeletal: Moves all extremities Extremities: Lower extremity swelling, right more than left, 3 to 4+. Warm to palpation, erythematous but not infectious looking Skin: No bruising or lesions Neuro: AAO x 0, no focal deficits. Objective Labs Result Diagrams: 01/19/19 06:20 01/19/19 06:20 Labs: Laboratory Results - last 24 hr 01/17/19 01/17/19 01/17/19 21:04 21:04 21:04 WBC 6.3 RBC 4.40 L Hgb 13.4 L Hct 39.7 L MCV 90.4 MCH 30.4 MCHC 33.6 RDW 14.3 Plt Count 170 Neut % (Auto) 65.0 Lymph % (Auto) 20.5 L [place] % (Auto) 10.3 Eos % (Auto) 3.6 Baso % (Auto) 0.6 Neut # (Auto) 4100 Lymph # (Auto) 1300 [place] # (Auto) 600 Eos # (Auto) 200 Baso # (Auto) 0 PT 12.1 INR 1.1 APTT 30 Sodium 141 Potassium 3.8 Chloride 105 Carbon Dioxide 30 BUN 22 H Creatinine 0.90 Estimated GFR > 60.0 BUN/Creatinine Ratio 24.4 H Glucose 87 Lactate Calcium 9.2 Total Bilirubin 0.5 AST 30 ALT 32 Alkaline Phosphatase 76 Troponin I < 0.012 Total Protein 6.7 Albumin 3.8 Globulin 2.9 Albumin/Globulin Ratio 1.3 Vitamin B12 Procalcitonin TSH Prolactin 18.8 H Urine Color Urine Appearance Urine pH Ur Specific [place] Urine Protein Urine Glucose (UA) Urine Ketones Urine Occult Blood Urine Nitrate Urine Bilirubin Urine Urobilinogen Ur Leukocyte Esterase Urine RBC Urine WBC Ur Squamous Epith Cells Amorphous Sediment Urine Bacteria Ur Culture Indicated? Salicylates < 1.0 Urine Opiates Screen Ur Oxycodone Screen Urine Methadone Screen Acetaminophen < 10 L Ur Barbiturates Screen U Tricyclic Antidepress Ur Phencyclidine Scrn Ur Amphetamines Screen U Methamphetamines Scrn Ur MDMA Scrn (Ecstasy) U Benzodiazepines Scrn Urine Cocaine Screen U Marijuana (THC) Screen Ethyl Alcohol < 10 01/17/19 01/17/19 01/17/19 21:04 21:04 21:04 WBC RBC Hgb Hct MCV MCH MCHC RDW Plt Count Neut % (Auto) Lymph % (Auto) [place] % (Auto) Eos % (Auto) Baso % (Auto) Neut # (Auto) Lymph # (Auto) [place] # (Auto) Eos # (Auto) Baso # (Auto) PT INR APTT Sodium Potassium Chloride Carbon Dioxide BUN Creatinine Estimated GFR BUN/Creatinine Ratio Glucose Lactate 0.8 Calcium Total Bilirubin AST ALT Alkaline Phosphatase Troponin I Total Protein Albumin Globulin Albumin/Globulin Ratio Vitamin B12 Procalcitonin < 0.05 TSH 1.89 Prolactin Urine Color Urine Appearance Urine pH Ur Specific Ram[place] Urine Protein Urine Glucose (UA) Urine Ketones Urine Occult Blood Urine Nitrate Urine Bilirubin Urine Urobilinogen Ur Leukocyte Esterase Urine RBC Urine WBC Ur Squamous Epith Cells Amorphous Sediment Urine Bacteria Ur Culture Indicated? Salicylates Urine Opiates Screen Ur Oxycodone Screen Urine Methadone Screen Acetaminophen Ur Barbiturates Screen U Tricyclic Antidepress Ur Phencyclidine Scrn Ur Amphetamines Screen U Methamphetamines Scrn Ur MDMA Scrn (Ecstasy) U Benzodiazepines Scrn Urine Cocaine Screen U Marijuana (THC) Screen Ethyl Alcohol 01/17/19 01/18/19 01/18/19 22:08 06:30 06:50 WBC RBC Hgb Hct MCV MCH MCHC RDW Plt Count Neut % (Auto) Lymph % (Auto) [place] % (Auto) Eos % (Auto) Baso % (Auto) Neut # (Auto) Lymph # (Auto) [place] # (Auto) Eos # (Auto) Baso # (Auto) PT INR APTT Sodium Potassium Chloride Carbon Dioxide BUN Creatinine Estimated GFR BUN/Creatinine Ratio Glucose Lactate Calcium Total Bilirubin AST ALT Alkaline Phosphatase Troponin I Total Protein Albumin Globulin Albumin/Globulin Ratio Vitamin B12 525 Procalcitonin TSH Prolactin Urine Color Yellow Urine Appearance Clear Urine pH 7.0 Ur Specific Ramona 1.025 Urine Protein Negative Urine Glucose (UA) Negative Urine Ketones Negative Urine Occult Blood Negative Urine Nitrate Negative Urine Bilirubin Negative Urine Urobilinogen 0.2 Ur Leukocyte Esterase Negative Urine RBC None seen Urine WBC 0-1/hpf Ur Squamous Epith Cells 0-1 /hpf Amorphous Sediment 1+ Urine Bacteria Few (2-10) H Ur Culture Indicated? Cult not indicated Salicylates Urine Opiates Screen Negative Ur Oxycodone Screen Negative Urine Methadone Screen Negative Acetaminophen Ur Barbiturates Screen Negative U Tricyclic Antidepress Negative Ur Phencyclidine Scrn Negative Ur Amphetamines Screen Negative U Methamphetamines Scrn Negative Ur MDMA Scrn (Ecstasy) Negative U Benzodiazepines Scrn Negative Urine Cocaine Screen Negative U Marijuana (THC) Screen Negative Ethyl Alcohol 01/18/19 01/18/19 06:50 06:50 WBC 4.5 RBC 4.04 L Hgb 12.2 L Hct 36.7 L MCV 90.9 MCH 30.1 MCHC 33.1 RDW 14.0 Plt Count 119 L Neut % (Auto) 58.1 Lymph % (Auto) 24.7 L [place] % (Auto) 11.6 Eos % (Auto) 4.9 H Baso % (Auto) 0.7 Neut # (Auto) 2600 Lymph # (Auto) 1100 [place] # (Auto) 500 Eos # (Auto) 200 Baso # (Auto) 0 PT INR APTT Sodium 137 Potassium 3.5 Chloride 106 Carbon Dioxide 27 BUN 19 Creatinine 0.70 Estimated GFR > 60.0 BUN/Creatinine Ratio 27.1 H Glucose 78 L Lactate Calcium 8.2 L Total Bilirubin AST ALT Alkaline Phosphatase Troponin I Total Protein Albumin Globulin Albumin/Globulin Ratio Vitamin B12 Procalcitonin TSH Prolactin Urine Color Urine Appearance Urine pH Ur Specific [place] Urine Protein Urine Glucose (UA) Urine Ketones Urine Occult Blood Urine Nitrate Urine Bilirubin Urine Urobilinogen Ur Leukocyte Esterase Urine RBC Urine WBC Ur Squamous Epith Cells Amorphous Sediment Urine Bacteria Ur Culture Indicated? Salicylates Urine Opiates Screen Ur Oxycodone Screen Urine Methadone Screen Acetaminophen Ur Barbiturates Screen U Tricyclic Antidepress Ur Phencyclidine Scrn Ur Amphetamines Screen U Methamphetamines Scrn Ur MDMA Scrn (Ecstasy) U Benzodiazepines Scrn Urine Cocaine Screen U Marijuana (THC) Screen Ethyl Alcohol Assessment & Plan Assessment & Plan narrative: 78yo M with PMH of HTN, Prostate ca, and incontinence admitted to medical floor with AMS. 1. Acute encephalopathy -Patient continues to be confused and disoriented -laboratory workup is essentially unremarkable -head CT demonstrates only chronic small vessel changes and chest x-ray only mild emphysema. UA negative for infection -Continue IVF for re-hydration and monitor mental status -pending MRI brain 2. Right leg lymphedema, chronic -pending LE Duplex to rule out DVT -For now, continue Lovenox 40 mg daily DVT prophylaxis 3. Hypertension, chronic -BP stable at this time -Monitor, initiate antihypertensives as needed 4. Genital candidiasis, acute -treatment initiated on ER visit 01/06/2019 -continue ketoconazole daily 5. Prostate cancer, chronic -s/p prostatectomy and chemotherapy, no evidence of recurrence 6. Neuropathy lower extremities, chronic - currently not on medication. monitor Total care spent for patient 30 min
--- NOTE | 2019-01-18 11:48 | PT.IPTN ---
Current Diagnoses Retention of urine, unspecified (01/17/19) Physical Therapy Treatment Note M3 PT-IP Subjective Start: 01/18/19 11:43 Freq: NEEDED Status: Active Protocol: Document 01/18/19 11:15 HH (Rec: 01/18/19 11:48 HH [id number]) Subjective Physical Therapy Visit Type Type Patient Unavailable Visit Start Time 11:15 Notes Per RN, pt is going to have hernandez catheter placement shortly and recommend reattempt PT in PM. RN and SW have been attempting to reach out to his to ask for pt' s baseline info through voice messages and phone calls.
--- NOTE | 2019-01-18 13:40 | ST.IPCSEOM ---
Current Diagnoses Retention of urine, unspecified (01/17/19) Past Medical History (Last Reviewed 01/18/19 @ 05:05 by Bryan Massey DO) Candidiasis of scrotum (Acute Medical) HTN (hypertension) (Chronic Medical) History of prostate cancer (Chronic Medical) Incontinence (Chronic Medical) Speech-Language Pathology Swallow Evaluation [employer] Clinical Swallow Evaluation Start: 01/18/19 11:18 Freq: Status: Active Protocol: Document 01/18/19 11:19 TLC (Rec: 01/18/19 11:27 TLC [id number]) Clinical Swallow Evaluation Session Time Visit Start Time 07:45 Visit Stop Time 08:15 Total Visit Minutes 30 Referral Reason for Referral Confusion, NPO until swallow evaluation Setting Assessment Location Acute Care Visit Type Note Type Initial Evaluation Next Note Type Next Note Type Treatment Note Patient Information Identification Type ID Wristband History Patient is a resident of [facility]. He was found by staff to be confused during dinner. He was brought to the ER and was admitted for altered mental status of unknown etiology. Subjective Observations Patient was sleeping when I entered the room. He awoke to verbal stimuli. He agreed to sit up and participate. He was oriented to self, month and year. He was not oriented to day, place or situation. He stated it was [employer] in 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 I am unsure whether he was being sarcastic or this was related to his disorientation. When I asked if he had family around he stated yes but told me they do not talk to him anymore. Evaluation Liquids Trialed Ice Chips Thin Solids Trialed Puree Dysphagia Advanced Mechanical Soft Regular Administration Type Tea Spoon Controlled Cup Sip Straw Dependent Feeding Oral Impairment Mildly Impaired Oral Phase Comments Oral [facility] exam was limited due to limited oral cavity opening. Patient responded to multiple requests to open his mouth with only barely opening his mouth. Visualization was limited. Dentition appeared WFL. No visualization of the soft palate or posterior tongue. Moderate impairment observed in lingual and labial range of motion with unknown cause. Limited mouth opening resulted in poor bolus acceptance of ice chips and apple sauce. Patient was unable to feed himself stating his hands were frozen. Aside from poor bolus acceptance, mastication and bolus transport appeared within functional limits and given a limited view, no oral residue was observed. Pharyngeal Impairment WFL Pharyngeal Phase Comments Hyolaryngeal elevation was present on palpation. Unable to visualize velum. Cough and throat clear were weak. I do not suspect pharyngeal impairment at this time as patient consumed all trials without signs of aspiration. Chest xray showed mild emphysema/asthma without signs of pneumonia. No concern for aspiration at this time; however, ongoing monitoring of patient during meals and lung sounds is recommended. Findings Dysphagia Type Oral Rehabilitation Potential Good Impressions Patient presents with mild oral phase dysphagia characterized by poor bolus acceptance due to limited mouth opening of unknown cause . He did not self-feed today; however, I am unsure what his baseline status is. Overall, he was moderately confused during the evaluation. He followed directions, but often his speech was off-topic or inappropriate. A cognitive evaluation may be warranted once the cause of his altered mental status is found. Diet Recommendations Liquids Order Thin Diet Order Dysphagia Advanced Medication Recommendations As Tolerated Additional Dietary Needs 1:1 Assistance Aspiration Precautions Recommended Precautions Upright at 90 Degrees Small Bites/Sips Treatment Plan Placement Recommendations after [facility] Discharge Appropriate for Therapy Yes Therapy Recommendations Dysphagia management including monitoring for signs of aspiration and diet advancement as tolerated. Further assessment including gathering information about patient's baseline. Patient and family education as needed . As stated above, cognitive evaluation may be warranted if patient's mental status does not improve. Dysphagia Goals Jimi will improve bolus acceptance during meals by opening his oral cavity given verbal, visual and tactile cues.
--- NOTE | 2019-01-18 14:35 | PC.NURSE ---
Tried to call patient x3 this shift to get information for pts MRI. The phone has been busy every call. Pt is confused and not oriented, he is sleepy and unable to answer questions about his health. is aware of this and is understanding about MRI having to be done when we can get a hold of his .
--- NOTE | 2019-01-18 16:31 | CM.DANOTE ---
DCP/Assessment: Reviewed chart. Patient is a 78yr old male admitted to [facility] for confusion/altered mental status. Patient admitted from [facility]. PCP listed is Dr. Alarcon. Primary payor is 1)Medicare. WEB CONTENT COORDINATOR attempted to meet with patient today. Patient sleepy/confused at time of visit. WEB CONTENT COORDINATOR placed call to Daniella at [facility] to get some history. No DPOA or contact listed on demographic sheet. Also only showing Medicare as prime insurance? Also placed call to Lydia at [facility] requesting she review for potential need for SNF if needed. She is agreeable. P: Pending. Left message with Daniella at [facility] to get patient's baseline and determine safest d/c plan. JERICHO Roach Discharge Planning/Care Management CM Discharge Assessment Start: 01/18/19 16:27 Freq: Status: Active Protocol: Document 01/18/19 16:27 KJS (Rec: 01/18/19 16:31 KJS [id number]) Discharge Planning Assessment Assigned Head Wood Grinder JERICHO Roach Advance Directives? No History Provided By Patient Medical Record Prior Living Arrangements Assisted Living Comment [facility] contact is Daniella # [phone] Household Members other Type of transporation used prior to Relies on Others admit Facility Name Admitted From: [facility] Willing to Return to Facility? Pending needs. Is patient alert and oriented? No Caregiver for Another No Review Status In Process Please Provide Date Initial DC 01/18/19 Assessment Was Performed Next Review Type Continued Stay Review
--- NOTE | 2019-01-18 17:19 | PT.IIE ---
Current Diagnoses Retention of urine, unspecified (01/17/19) Surgical History (Last Reviewed 01/18/19 @ 05:05 by Bryan Massey DO) History of prostatectomy (Resolved) History of squamous cell carcinoma excision (Resolved) Medical History (Last Reviewed 01/18/19 @ 05:05 by Bryan Massey DO) Candidiasis of scrotum (Acute) HTN (hypertension) (Chronic) History of prostate cancer (Chronic) Incontinence (Chronic) Physical Therapy Inpatient Evaluation/Re-Eval M1 PT/OT-IP Prior Functional Status Start: 01/18/19 17:41 Freq: NEEDED Status: Active Protocol: Document 01/18/19 17:19 AB (Rec: 01/18/19 18:37 AB [id number]) Medical Review Prior Functional Status Medical History Reviewed Yes Communication pt with confusion Mobility and Gait pt stated that he was mod I with mobility with use of SPC; per chart: pt able to ambulate at [facility] with assist Social History Household Members other Living Arrangements Assisted Living Additional Social History Comment unable to get much PLOF and info from pt due to confusion M2 PT-IP Current Condition Start: 01/18/19 11:43 Freq: NEEDED Status: Active Protocol: Document 01/18/19 17:19 AB (Rec: 01/18/19 18:37 AB [id number]) Physical Therapy Current Condition Current Condition Evaluation Date 01/18/19 Treatment Diagnosis AMS; difficulty in walking Onset Date 01/17/19 Precautions Other Precautions falls M3 PT-IP Subjective Start: 01/18/19 11:43 Freq: NEEDED Status: Active Protocol: Document 01/18/19 17:19 AB (Rec: 01/18/19 18:37 AB [id number]) Subjective Physical Therapy Visit Type Type Initial Evaluation Visit Start Time 17:19 Visit Stop Time 18:00 Total Visit Minutes 41 Number of 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 Visits 0 Physical Therapy Visit Comments Patient Comments pt wants to use the toilet: explained to the pt that he has a hernandez on Therapy Pain Assessment Pain Present Pain Present Denied Pain M4 PT-IP Mobility and Gait Start: 01/18/19 11:43 Freq: NEEDED Status: Active Protocol: Document 01/18/19 17:19 AB (Rec: 01/18/19 18:37 AB [id number]) PT-Bed Mobility Assessment Supine to Sit Supine to Sit Moderate Assistance Scooting Scooting to Edge of Bed Minimal Assistance PT-Transfer Assessment Sit to and From Stand Sit to and from Stand Moderate Assistance Equipment Transfer Assistive Device Gait Belt Front Wheeled Walker Orthotic/Prosthetic Devices or Brace: No Transfers Transfer Destination Chair Transfer Technique pt ambulated to the chair using FWW Transfer Ability Level of Assist Moderate Assistance 1 Person Assistance Use of Upper Extremities Comments Mobility Comments pt requires cues with all tasks. completed sit to stand from EOB mod A and cues. pt was able to stand using FWW for support mod A while assisted with brief management . pt was able to ambulate using FWW mod A and cues. pt presents with unsteady gait and difficulty with LE elevation especially with RLE. pt presents with (+) BLE edema Gait Assessment Gait Gait Assistance Required: Moderate Assistance Distance (Feet) 12 Able to Maintain Weight Bearing Status Yes During Gait Assistive Devices Assistive Device Gait Belt Front Wheeled Walker Orthotic/Prosthetic Devices or Brace: No Gait Deviations General Gait Pattern Decreased Stride Length Decreased Feet Clearance Step-to Gait Factors Limiting Gait Function Factors Limiting Gait Function Decreased Activity Tolerance Decreased Strength Difficulty Following Directions Poor Balance Poor Safety Awareness PT-Balance Assessment Sitting Balance and Reactions Static Sitting Balance Ability Good Dynamic Sitting Balance Ability Good Standing Balance and Reactions Static Standing Balance Ability Fair Dynamic Standing Balance Ability Poor Device Used FWW M5 PT-IP Objective Assessments Start: 01/18/19 11:43 Freq: NEEDED Status: Active Protocol: Document 01/18/19 17:19 AB (Rec: 01/18/19 18:37 AB [id number]) Orientation Orientation/Cognition Level of Alertness Confusional State Orientation Name Month Year Safety Awareness Decreased Safety Awareness Memory Description Short Term Impaired Skilled Nursing Impaired Gross Range of Motion Lower Extremity ROM Assessment Within Functional Limits Strength Lower Extremity Strength Assessment Bilaterally Impaired Knee 3+/5 Sensation Assessment Sensation Gross Sensation Right LE Impaired Left LE Impaired Light Touch Impaired Proprioception (Position) Impaired Sensation Description Numbness Tingling Pain Comments Sensation Comments c/o numbness/tingling from the knee down to toes Muscle Tone Muscle Tone WNL Yes M6 PT-IP Treatment Start: 01/18/19 11:43 Freq: NEEDED Status: Active Protocol: Document 01/18/19 17:19 AB (Rec: 01/18/19 18:37 AB [id number]) Physical Therapy Treatment Education Education Provided Safety M7 PT-IP Assessment and Plan Start: 01/18/19 11:43 Freq: NEEDED Status: Active Protocol: Document 01/18/19 17:19 AB (Rec: 01/18/19 18:37 AB [id number]) PT Summary Assessment and Plan Potential Rehabilitation Potential Fair Status of Condition at Evaluation Evolving Summary Impairments Pain ROM Strength Balance Coordination Sensation Tone Cognition Bed Mobility Transfers Gait Activity Tolerance Assessment Summary pt requiring mod A and max cues with all tasks. pt will benefit from SNF rehab to improve strength and mobility. Goals Bed Mobility Goal Standby Assistance Transfer Goal Standby Assistance Front Wheeled Walker Gait Goal Standby Assistance Front Wheel Walker Gait Distance 150 Days to Meet Goals 5 Frequency of Treatment Frequency Of Treatment Once a Day Treatment Plan Physical Therapy Treatment Plan Bed Mobility Training Transfer Training Gait Training Therapeutic Exercise Balance Retraining Discharge Planning Hot or Cold Pack Neuromuscular Re-ed Coordination Retraining Manual Therapy Other Recommendations and Next Treatment ambulation Focus Recommendations To Nursing Amount of Assist Needed 1 Person Assist Discharge Recommendations PT Discharge Recommendations SNF Rehab
--- NOTE | 2019-01-18 17:42 | OT.IP.TRT ---
Current Diagnoses Retention of urine, unspecified (01/17/19) Occupational Therapy Treatment Note M3 OT- IP Subjective and Pain Start: 01/18/19 17:41 Freq: Status: Active Protocol: Document 01/18/19 17:42 [facility] (Rec: 01/18/19 17:42 [facility] [id number]) OT- Subjective Occupational Therapy Visit Type Type Patient Unavailable Notes Pt sleeping earlier and not able to see for OT eval earlier , to attempt again tomorrow.
--- NOTE | 2019-01-18 21:54 | PC.NURSE ---
Pt is mostly non-communicative, calm and cooperative; sat up in chair for several hours, including for dinner; LS diminished to bases, O2 RA=93%BLLEs 3-4+ edema R>L; tolerating diet; Harrison draining to gravity; pt returned to bed and sleeping; bed alarm active and call light within reach
[2019-01-19] VITALS (7 sets, daily range): BP systolic 82–140; BP diastolic 51–97; PULSE 71–97; RESP 16–20; TEMP 36.3–36.9; O2SAT 97–100
[2019-01-19] MEDS: ACETAMINOPHEN 325 MG TABLET 650 MG PO (00:39)
[2019-01-19] MEDS: PANTOPRAZOLE 20 MG TABLET PO (06:13)
[2019-01-19] MEDS: SODIUM CHLORIDE 0.9% 1,000 ML 125 ML IV ×3 (06:13→23:04)
[2019-01-19 07:12] LABS: Add Manual Diff / Slide Review NO; Basophils Absolute Auto 0 /uL (0-100); Basophils Percent Auto 0.7 % (0-2); Eosinophils Absolute Auto 200 /uL (0-450); Eosinophils Percent Auto 3.7 % (2-4); Hematocrit 36.3 % (41-53); Hemoglobin 12.4 g/dL (13.5-17.5); Lymphocytes Absolute Auto 900 /uL (1100-4500); Lymphocytes Percent Auto 17.8 % (25-40); Mean Corpuscular HGB Conc 34.1 % (30-36); Mean Corpuscular Hemoglobin 30.5 PG (26-34); Mean Corpuscular Volume 89.4 fL (80-100); Monocytes Absolute Auto 600 /uL (0-900); Monocytes Percent Auto 11.9 % (3-14); Neutrophils Absolute Auto 3200 /uL (1500-7000); Neutrophils Percent Auto 65.9 % (50-75); Platelet Count 150 X10^3/uL (150-400); Red Blood Cell Count 4.06 X10^6/uL (4.5-5.9); Red Cell Distribution Width 13.6 % (11.6-14.8); White Blood Cell Count 4.8 X10^3/uL (4.5-11.0)
[2019-01-19 07:20] LABS: Blood Urea Nitrogen 14 mg/dL (9-20); Carbon Dioxide 25 mmol/L (22-32); Chloride 108 mmol/L (98-107); Estimated Glomerular Filt Rate > 60.0 mL/min (>60); Glucose 78 mg/dL (80-110); HEMOLYSIS < 15 (0-50); Potassium 3.3 mmol/L (3.4-5.1); Sodium 138 mmol/L (137-145)
[2019-01-19] MEDS: ENOXAPARIN 40 MG/0.4 ML SYRINGE SUBCUT (08:49)
[2019-01-19] MEDS: KETOCONAZOLE 2% CREAM 15 GM 1 APPLIC TOP (08:49)
[2019-01-19] MEDS: ASPIRIN EC 81 MG TABLET PO (08:49)
--- NOTE | 2019-01-19 09:08 | PM.PN.1 ---
Subjective Date Patient Seen: 01/19/19 Time Patient Seen: 09:08 Interval history: Follow-up on altered mental status Patient seen at bedside. He is doing well. Currently is AAO x2. He is more conversant, able to answer questions, and seems to care conversation. He currently denies any pain, however states that his right lower extremity hurt over night. Denies any other symptoms. No acute overnight events. Exam Vital Signs (past 8 hours): - 01/19/19 04:06 Temperature 98.2 F Pulse Rate 72 Respiratory Rate 20 Blood Pressure 128/80 Pulse Oximetry 99 Oxygen Delivery Method Room Air Oxygen Flow Rate 0 Narrative Exam Narrative: General: AAO x2, no acute distress. More alert HEENT: PERRLA bilaterally, EOMI bilaterally Neck: Supple, no lymphadenopathy CV: Regular rate rhythm, no murmurs or gallops Respiratory: Clear to auscultation bilaterally, no crackles or rhonchi GI: Positive bowel sounds in all 4 quadrants Musculoskeletal: Moves all extremities Extremities: Lower extremity swelling, right more than left, 3 to 4+. Warm to palpation, erythematous but not infectious looking Skin: No bruising or lesions Neuro: AAO x 2, no focal deficits. Objective Labs Result Diagrams: 01/19/19 06:20 01/19/19 06:20 Labs: Laboratory Results - last 24 hr 01/19/19 01/19/19 06:20 06:20 WBC 4.8 RBC 4.06 L Hgb 12.4 L Hct 36.3 L MCV 89.4 MCH 30.5 MCHC 34.1 RDW 13.6 Plt Count 150 Neut % (Auto) 65.9 Lymph % (Auto) 17.8 L Valencia % (Auto) 11.9 Eos % (Auto) 3.7 Baso % (Auto) 0.7 Neut # (Auto) 3200 Lymph # (Auto) 900 L Valencia # (Auto) 600 Eos # (Auto) 200 Baso # (Auto) 0 Sodium 138 Potassium 3.3 L Chloride 108 H Carbon Dioxide 25 BUN 14 Creatinine 0.70 Estimated GFR > 60.0 BUN/Creatinine Ratio 20.0 Glucose 78 L Calcium 8.0 L Assessment & Plan Assessment & Plan narrative: 78yo M with PMH of HTN, Prostate ca, and incontinence admitted to medical floor with AMS. 1. Acute encephalopathy -Patient's mentation is resolving. He is AAOx2 today -laboratory workup is essentially unremarkable -head CT demonstrates only chronic small vessel changes and chest x-ray only mild emphysema. UA negative for infection -Continue IVF for re-hydration and monitor mental status -pending MRI brain 2. Right leg lymphedema, chronic -LE Duplex is negative for acute DVT 3. Hypertension, chronic -BP stable at this time -Monitor, initiate antihypertensives as needed 4. Genital candidiasis, acute -treatment initiated on ER visit 01/06/2019 -continue ketoconazole daily 5. Prostate cancer, chronic -s/p prostatectomy and chemotherapy, no evidence of recurrence 6. Neuropathy lower extremities, chronic - currently not on medication. monitor Total care spent for patient 30 min
--- NOTE | 2019-01-19 09:30 | ST.IPTN ---
LAP CUTTER Treatment Note LAP CUTTER Treatment Note Start: 01/18/19 11:18 Freq: Status: Active Protocol: Document 01/19/19 15:21 TLC (Rec: 01/19/19 15:31 TLC [id number]) Speech Pathology Treatment Note Session Time Total Visit Minutes 20 Setting Treatment Setting Acute Care Visit Type Note Type Treatment Note Next Note Type Next Note Type Treatment Note General Information General Information MRI did not show definitive acute stroke; however, examination was limited due to motion artifact. No known cause of altered mental status . Subjective Identification Type Name Observations/Patient Presentation Patient was seen sitting up in bed. He had just finished his breakfast and was trying to get the lid off of his coffee. Objective Short Term Goals Jimi will improve bolus acceptance during meals by opening his oral cavity given verbal, visual and tactile cues. Jimi will use external memory aids as needed to answer orientation questions with 100 % accuracy. Treatment Activities Jimi had just finished breakfast; therefore, no food trials were given on this date . He did however sip on his coffee throughout the session. He self administered cup sips (improved from yesterday when he required feeding assistance). He coughed on one occasion. All other sips were tolerated without signs of aspiration. His mentation was improved since yesterday. He was oriented to city, state, self, month and year. He was not oriented to facility, time of day or situation. He correctly read the clock but asked whether or not it was AM or PM demonstrating decreased reasoning given the window was open and daylight was shining in his room. We discussed why he was brought into the hospital. He did not have memory of those events. He told me his lives on [facility]. When asked about a phone, he stated it was out of order. We discussed his cognition and I asked if he would be willing to participate in a cognitive assessment and he declined. Assessment Patient Response to Treatment Good Rehab Potential Good Impairments Identified Cognitive-Linguistic Skills Dysphagia Progress Towards Goals Good Progress Assessment of Overall Progress Improving Assessment of Improvement Mentation is improved from yesterday. He also was able to self-feed which was an improvement from yesterday when he required feeding assistance. Patient/Caregiver Understanding Fair Plan Comment Cognitive assessment
--- NOTE | 2019-01-19 12:05 | PT.IPTN ---
Current Diagnoses Retention of urine, unspecified (01/17/19) Physical Therapy Treatment Note M2 PT-IP Current Condition Start: 01/18/19 11:43 Freq: NEEDED Status: Active Protocol: Document 01/18/19 17:19 AB (Rec: 01/18/19 18:37 AB [id number]) Physical Therapy Current Condition Current Condition Evaluation Date 01/18/19 Treatment Diagnosis AMS; difficulty in walking Onset Date 01/17/19 Precautions Other Precautions falls M3 PT-IP Subjective Start: 01/18/19 11:43 Freq: NEEDED Status: Active Protocol: Document 01/19/19 11:50 GGD (Rec: 01/19/19 12:30 GGD [id number]) Subjective Physical Therapy Visit Type Type Treatment Note Visit Start Time 11:50 Visit Stop Time 12:05 Total Visit Minutes 15 Number of DOUGHNUT DOUGH MIXER Visits 1 Physical Therapy Visit Comments Patient Comments Pt willing to work with therapy. Therapy Pain Assessment Pain When Pain Assessed During Weight Bearing Pain Present Pain Present Pain Reported Location Right Leg Scale Used unable to rate M4 PT-IP Mobility and Gait Start: 01/18/19 11:43 Freq: NEEDED Status: Active Protocol: Document 01/19/19 11:50 GGD (Rec: 01/19/19 12:30 GGD [id number]) PT-Bed Mobility Assessment Supine to Sit Supine to Sit Contact Guard Assistance Bedrails Scooting Scooting to Edge of Bed Contact Guard Assistance PT-Transfer Assessment Sit to and From Stand Sit to and from Stand Moderate Assistance Equipment Transfer Assistive Device Gait Belt Front Wheeled Walker Orthotic/Prosthetic Devices or Brace: No Transfers Transfer Destination Chair Transfer Ability Level of Assist Minimal Assistance 1 Person Assistance Use of Upper Extremities Comments Mobility Comments Pt need mod cues for mobility. Gait Assessment Gait Gait Assistance Required: Contact Guard Assist Distance (Feet) 25 Assistive Devices Assistive Device Gait Belt Front Wheeled Walker Orthotic/Prosthetic Devices or Brace: No Gait Deviations General Gait Pattern Decreased Stride Length Decreased Feet Clearance Step-to Gait Factors Limiting Gait Function Factors Limiting Gait Function Decreased Activity Tolerance Decreased Strength Difficulty Following Directions Poor Balance Poor Safety Awareness Comments Gait Comments pt needed min cues for step length. Pt stood at sink with OT for self care with CGA for balance. 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 Gross Range of Motion Lower Extremity ROM Assessment Within Functional Limits Strength Lower Extremity Strength Assessment Bilaterally Impaired Knee 3+/5 Sensation Assessment Sensation Gross Sensation Right LE Impaired Left LE Impaired Light Touch Impaired Proprioception (Position) Impaired Sensation Description Numbness Tingling Pain Comments Sensation Comments c/o numbness/tingling from the knee down to toes Muscle Tone Muscle Tone WNL Yes M6 PT-IP Treatment Start: 01/18/19 11:43 Freq: NEEDED Status: Active Protocol: Document 01/18/19 17:19 AB (Rec: 01/18/19 18:37 AB [id number]) Physical Therapy Treatment Education Education Provided Safety M7 PT-IP Assessment and Plan Start: 01/18/19 11:43 Freq: NEEDED Status: Active Protocol: Document 01/19/19 11:50 GGD (Rec: 01/19/19 12:30 GGD [id number]) PT Summary Assessment and Plan Summary Assessment Summary Pt improving with mobility. He did need cues for all mobility. He was able to progress gait and standing balance. He did need mod a for sit to stand from bed height. Frequency of Treatment Frequency Of Treatment Once a Day Treatment Plan Physical Therapy Treatment Plan Bed Mobility Training Transfer Training Gait Training Therapeutic Exercise Balance Retraining Discharge Planning Hot or Cold Pack Neuromuscular Re-ed Coordination Retraining Manual Therapy Other Recommendations and Next Treatment ambulation Focus Recommendations To Nursing Amount of Assist Needed 1 Person Assist Discharge Recommendations PT Discharge Recommendations Home with Assistance SNF Rehab Other Discharge Recommendations depending on level of assist home at [facility] vs SNF.
--- NOTE | 2019-01-19 12:21 | OT.IP.EVAL ---
Current Diagnoses Retention of urine, unspecified (01/17/19) Past Medical History (Last Reviewed 01/18/19 @ 05:05 by Bryan Massey DO) Candidiasis of scrotum (Acute) HTN (hypertension) (Chronic) History of prostate cancer (Chronic) Incontinence (Chronic) Surgical History (Last Reviewed 01/18/19 @ 05:05 by Bryan Massey DO) History of prostatectomy (Resolved) History of squamous cell carcinoma excision (Resolved) Occupational Therapy Inpatient Evaluation/Re-Eval M1 PT/OT-IP Prior Functional Status Start: 01/18/19 11:43 Freq: NEEDED Status: Active Protocol: Document 01/19/19 12:21 PJM (Rec: 01/19/19 15:48 PJM [id number]) Medical Review Prior Functional Status Medical History Reviewed Yes Communication pt with confusion Mobility and Gait pt stated that he was mod I with mobility with use of SPC; per chart: pt able to ambulate at [facility] with assist Activities of Daily Living and IADL's Pt unable to give hx due to memory deficits and no family here to confirm prior level of function. Pt states he just recently moved to [facility] and was just getting settled there. Social History Household Members other Living Arrangements Assisted Living Number of Floors (Floors) One Floor Number of Stairs To Enter/Railing? level entry Additional Social History Comment unable to get much PLOF and info from pt due to confusion M1 PT/OT-IP Prior Functional Status Start: 01/18/19 17:41 Freq: NEEDED Status: Active Protocol: Document 01/18/19 17:19 AB (Rec: 01/18/19 18:37 AB [id number]) Medical Review Prior Functional Status Medical History Reviewed Yes Communication pt with confusion Mobility and Gait pt stated that he was mod I with mobility with use of SPC; per chart: pt able to ambulate at [facility] with assist Social History Household Members other Living Arrangements Assisted Living Additional Social History Comment unable to get much PLOF and info from pt due to confusion M2 OT-IP Current Condition Start: 01/18/19 17:41 Freq: Status: Active Protocol: Document 01/19/19 12:21 PJM (Rec: 01/19/19 15:48 PJM [id number]) Occupational Therapy Current Condition Current Condition Evaluation Date 01/19/19 Treatment Diagnosis decreased cognition,mobility, self care skills due encephalopathy of unknown cause; MRI neg Diagnosis Onset Date 01/18/19 Post Operative Precautions Other Precautions fall risk, confusion, bed/ chair alarm M3 OT- IP Subjective and Pain Start: 01/18/19 17:41 Freq: Status: Active Protocol: Document 01/19/19 12:21 PJM (Rec: 01/19/19 15:48 PJM NRTM) OT- Subjective Occupational Therapy Visit Type Type Initial Evaluation Visit Start Time 11:43 Visit Stop Time 12:21 Notes Partial cotx with P.T. for functional mobility Occupational Therapy Visit Comments Patient Comments My R leg has been swollen since I had prostate surgery in my 40's. Patient/Caregiver Goals none verbalized this session OT Pain Assessment Pain When Pain Assessed After Treatment Pain Present Pain Present Denied Pain M4 OT- IP ADL's Start: 01/18/19 17:41 Freq: Status: Active Protocol: Document 01/19/19 12:21 PJM (Rec: 01/19/19 15:48 PJM NRTM) OT QCR-Obcp-Dzafinw General Evaluation Self-Feeding Ability Standby Assistance Areas Needing Assistance Cutting Food Opening Containers Comments OT Self-Feeding Comments Pt has decreased B hand sensation and stiffness in fingers from arthritis with decreased dexterity noted. OT ADL-Grooming General Evaluation Grooming Ability Minimal Assistance Areas Needing Assistance Combing/Brushing Hair Face Washing Comments OT Grooming Comments pt needs verbal cues for thoroughness with face washing and min assist to comb hair in back standing at sink with FWW. CGA for balance by P.T. with FWW in place. OT ADL-Oral Care Comments Oral Care Comments did not occur this session, to be assessed OT ADL-Dressing General Eval Upper Body Dressing Ability Total Assistance Areas Needing Assistance Socks Comments OT Dressing Comments Pt total assist to rewrap zakiya wrap on RLE after ambulation. Pt total assist with B socks due to difficulty reaching feet. OT ADL-Toileting General Evaluation Toileting Ability Total Assistance Areas Needing Assistance Empty Catheter or Colostomy Comments OT Toileting Comments pt has hernandez in place OT ADL-Bathing Comments OT Bathing Comments to be assessed as mobility/ endurance improve M5 OT- IP IADL's Start: 01/18/19 17:41 Freq: Status: Active Protocol: Document 01/19/19 12:21 PJM (Rec: 01/19/19 15:48 PJM NRTM) OT-Instrumental Activities of Daily Living Deficits IADL Deficits Identified Deficits Home Safety Awareness Awareness of Need for Assistance at Home Decreased Awareness Ability to Problem Solve Emergency Unable to Problem Solve Situations Medication Management Medication Management Caregiver Administers Medication Management Comments assume pt has total assist at [facility] Money Management Money Management Caregiver Provides Assistance Money Management Comments assume pt has total assist due to confusion Meal Preparation Meal Preparation Caregiver Provides Assist Meal Preparation Comments meal provided at [facility] Dividing Machine Operator Dividing Machine Operator Caregiver Provides Assist Driving Driving Caregiver Provides Assist M6 OT- IP Functional Cognition Start: 01/18/19 17:41 Freq: Status: Active Protocol: Document 01/19/19 12:21 PJM (Rec: 01/19/19 15:48 PJ [id number]) Cognitive Factors Limiting Selfcare Function Cognitive Ability Level of Alertness Confusional State Patient Orientation Name Month Year Place Attention Span Ability Capable of Focused Attention Ability to Follow Commands Able to Follow One Step Commands Memory Description Short Term Impaired Safety Awareness Underestimates Need for Assistance Problem Solving Ability Needs Assist to Identify Solutions Executive Function Ability Unable to Remember Details Cognitive Comments Cognitive Assessment Comments Further assessment to follow OT- Vision and Hearing OT- Hearing Assessment OT- Hearing Assessment Hearing Impaired OT- Vision Assessment Visual Acuity Glasses All The Time Vision Assessment Comments Pt reports distant vision is blurry even with glasses and that he needs a new pair. Pt able to read wall clock iwth min cues due to confusion. M7 OT- IP Mobility and Balance Start: 01/18/19 17:41 Freq: Status: Active Protocol: Document 01/19/19 12:21 PJM (Rec: 01/19/19 15:48 PJ [email or web address]) OT- Bed Mobility Assessment Rolling Type of Rolling Roll to Left Level of Assistance Minimal Assistance 1 Person Assistance Head of Bed Elevated Bedrails Supine to Sit Supine to Sit Assist Minimal Assistance Head of Bed Elevated Bedrails Scooting Scooting to Edge of Bed Standby Assistance OT-Transfer Assessment Sit to and From Stand Sit to and from Stand Minimal Assistance 1 Person Assistance Use of Upper Extremities Transfers Transfer Ability Contact Guard Assistance 1 Person Assistance Technique Transfer Destination Chair Transfer Technique Stand Step Pivot Devices Transfer Assistive Devices Gait Belt Front Wheeled Walker Comments Mobility Comments Pt needs verbal cues throughout mobility tasks for technique. OT- Gait Assessment Gait Gait Assistance Required: Minimum Assistance 1 Person Assist Distance (Feet) 25 Able to Maintain Weight Bearing Status Yes During Gait Assistive Devices Assistive Device Gait Belt Front Wheeled Walker Comments Gait Ability Comments RLE edema interferes with advancing RLE at times. OT- Balance Assessment Sitting Balance and Reactions Static Sitting Balance Ability Good Dynamic Sitting Balance Ability Fair Standing Balance and Reactions Static Standing Balance Ability Fair Dynamic Standing Balance Ability Poor M8 OT- IP Objective Assessments Start: 01/18/19 17:41 Freq: Status: Active Protocol: Document 01/19/19 12:21 PJM (Rec: 01/19/19 15:48 PJM [email or web address]) OT Gross Range of Motion Upper Extremity Range of Motion Assessment Within Functional Limits ROM Impairments arthritic changes noted in wrists/hands OT Strength Upper Extremity Strength Assessment Within Functional Limits Comments Strength Comments BUE generally 4/5 except B shoulders 3+/5 and B breaker unit assembler 4-/ 5. OT- Coordination Assessment Comments Coordination Comments Coordination impaired by decreased sensation and slippery fingertips. OT-Muscle Tone Assessment Muscle Tone WNL Yes OT Sensation Assessment Comments Summary Comments Pt reports decrease light touch sensation throughout BUE but worse in fingertips. Edema Edema Present Edema Comments RLE has mod+ edema throughout with zakiya wrap in place from toes to knee. Pt states he has had P.T. for lymphedema tx in the past and also had lymphatic pump installed to help control edema. He has compression hose but has trouble getting it on. He reports his R leg is twice its normal size. M9 OT- IP Assessment and Plan Start: 01/18/19 17:41 Freq: Status: Active Protocol: Document 01/19/19 12:21 PJM (Rec: 01/19/19 15:48 PJM [email or web address]) OT Summary Assessment and Plan Potential Rehabilitation Potential Fair Analytic Complexity at Evaluation Low Summary OT Impairments Strength Balance Coordination Sensation Functional Cognition Functional Mobility Grooming Dressing Toileting Bathing Toilet Transfers Shower Transfers Assessment Summary Low complexity OT assessment completed with emphasis on self care and orientation/ cognition. Pt less confused than on admit and today he is able to state place, month, year and recalls date after 10 min delay. Pt able to mobilize 25 ft with min assist with FWW. Pt remains below his baseline level of function with performance deficits in all functional mobility/ transfers, standing grooming, bathing and toileting. Pt may need SNF at discharge depending on how much assist [facility] can provide. He currently needs supervision for safety during all waking hours and assist with all mobility. Goals Grooming Goal Standby Assistance Dressing Goal Moderate Assistance Toileting Goal Minimal Assistance Bathing Goal Moderate Assistance Toilet Transfer Goal Contact Guard Assistance Shower Transfer Goal Contact Guard Assistance Days to Meet Goals 5 Frequency of Treatment Frequency Of Treatment Once a Day Treatment Plan OT Treatment Plan ADL Training Functional Cognition Training Functional Mobility Patient/Family Education Discharge Planning Discharge Recommendations OT Discharge Recommendations SNF Rehab Other Discharge Recommendations vs return to [facility] pending progress here and level of assist that can be provided.
--- NOTE | 2019-01-20 00:41 | PC.NURSE ---
2320 Pt. very restless, confused & agitated. DONALD Rodríguez notified was here to talked to the Pt. Able to calmed him down, tried to contact Ariana but she's not answering her phone. C/O being hungry provided with snacks & encouraged him to get some sleep. Denies any pain, will cont. POC & monitor.
--- NOTE | 2019-01-20 04:13 | PC.NURSE ---
Noted lab. glucose for the past 2 days only 78. CBG. checked only 79. Hospitalist ARNP. Rodríguez notified, ordered to change NS to D5 NS @ 100 cc/hr. Will implement orders & monitor.
[2019-01-20] MEDS: DEXTROSE 5%-0.9% NS 1,000 ML 100 ML IV (04:30)
[2019-01-20 05:15] VITALS: BP 130/82; PULSE 82; RESP 16; TEMP 36.9; O2SAT 96
[2019-01-20] MEDS: PANTOPRAZOLE 20 MG TABLET PO (06:21)
[2019-01-20 07:03] LABS: Add Manual Diff / Slide Review NO; Basophils Absolute Auto 0 /uL (0-100); Basophils Percent Auto 0.4 % (0-2); Eosinophils Absolute Auto 100 /uL (0-450); Hematocrit 35.3 % (41-53); Hemoglobin 12.2 g/dL (13.5-17.5); Lymphocytes Absolute Auto 900 /uL (1100-4500); Lymphocytes Percent Auto 19.9 % (25-40); Mean Corpuscular HGB Conc 34.6 % (30-36); Mean Corpuscular Hemoglobin 30.7 PG (26-34); Mean Corpuscular Volume 88.9 fL (80-100); Monocytes Absolute Auto 700 /uL (0-900); Monocytes Percent Auto 15.6 % (3-14); Neutrophils Absolute Auto 2700 /uL (1500-7000); Neutrophils Percent Auto 61.1 % (50-75); Platelet Count 139 X10^3/uL (150-400); Red Blood Cell Count 3.97 X10^6/uL (4.5-5.9); Red Cell Distribution Width 13.9 % (11.6-14.8); White Blood Cell Count 4.5 X10^3/uL (4.5-11.0)
[2019-01-20 07:12] LABS: BUN Creatinine Ratio 12.9 (6-22); Blood Urea Nitrogen 9 mg/dL (9-20); Calcium 8.3 mg/dL (8.4-10.2); Carbon Dioxide 26 mmol/L (22-32); Chloride 108 mmol/L (98-107); Estimated Glomerular Filt Rate > 60.0 mL/min (>60); Glucose 89 mg/dL (80-110); HEMOLYSIS < 15 (0-50); Potassium 3.4 mmol/L (3.4-5.1); Sodium 140 mmol/L (137-145)
--- NOTE | 2019-01-20 08:23 | PC.NURSE ---
telemetry dc'd per Dr. Cardoso.
[2019-01-20 09:00] VITALS: BP 115/71; PULSE 83; RESP 18; TEMP 36.6; O2SAT 98
[2019-01-20] MEDS: FUROSEMIDE 40 MG/4 ML VIAL IV (09:17)
[2019-01-20] MEDS: ENOXAPARIN 40 MG/0.4 ML SYRINGE SUBCUT (09:24)
[2019-01-20] MEDS: KETOCONAZOLE 2% CREAM 15 GM 1 APPLIC TOP (09:24)
[2019-01-20] MEDS: ASPIRIN EC 81 MG TABLET PO (09:24)
--- NOTE | 2019-01-20 09:25 | OT.IP.TRT ---
Current Diagnoses Retention of urine, unspecified (01/17/19) Occupational Therapy Treatment Note M2 OT-IP Current Condition Start: 01/18/19 17:41 Freq: Status: Active Protocol: Document 01/19/19 12:21 PJM (Rec: 01/19/19 15:48 PJM [email or web address]) Occupational Therapy Current Condition Current Condition Evaluation Date 01/19/19 Treatment Diagnosis decreased cognition,mobility, self care skills due encephalopathy; MRI neg Diagnosis Onset Date 01/18/19 Post Operative Precautions Other Precautions fall risk, confusion, bed/ chair alarm M3 OT- IP Subjective and Pain Start: 01/18/19 17:41 Freq: Status: Active Protocol: Document 01/20/19 09:25 PJM (Rec: 01/20/19 12:30 PJM [email or web address]) OT- Subjective Occupational Therapy Visit Type Type Treatment Note Visit Start Time 08:31 Visit Stop Time 09:25 Total Visit Minutes 54 Notes Pt eating breakfast in be when therapist arrived. Occupational Therapy Visit Comments Patient/Caregiver Goals none verbalized OT Pain Assessment Pain When Pain Assessed After Treatment Pain Present Pain Present Denied Pain M4 OT- IP ADL's Start: 01/18/19 17:41 Freq: Status: Active Protocol: Document 01/20/19 09:25 PJM (Rec: 01/20/19 12:30 PJM [id number]) OT DVO-Tzuo-Dokaavl General Evaluation Self-Feeding Ability Minimal Assistance Areas Needing Assistance Cutting Food Loading Utensil Opening Containers Devices Self-Feeding Devices Adapted Utensil Comments OT Self-Feeding Comments Pt having difficulty loading utensil and then keeping it level when bringing it to mouth. Pt keeping R wrist fully flexed during self feeding and appears to have weakness in R wrist. He has 3+ /5 strength in wrist extensors but has difficulty sustaining this during self feeding. Provided built up handle utensils and encouraged pt to use overhand grasp with some improvement noted. Pt exhibits mod spilling with utensil use . Pt able to drink from cup with both hands with SBA. Posted set up instructions for meal on white board and pt will need intermittent assist. OT ADL-Toileting General Evaluation Toileting Ability Total Assistance Areas Needing Assistance Empty Catheter or Colostomy Comments M6 OT- IP Functional Cognition Start: 01/18/19 17:41 Freq: Status: Active Protocol: Document 01/20/19 09:25 PJM (Rec: 01/20/19 12:30 PJ [id number]) Cognitive Factors Limiting Selfcare Function Cognitive Ability Level of Alertness Confusional State Patient Orientation Name Place Attention Span Ability Capable of Focused Attention Capable of Sustained Attention Ability to Follow Commands Able to Follow One Step Commands with Increased Time Memory Description Short Term Impaired Problem Solving Ability Unable to Identify Errors Needs Assist to Identify Solutions Cognitive Comments Cognitive Assessment Comments Conversation confused at times but follows one step commands . Pt is pleasant and cooperative. Poor self monitoring noted during self feeding and needs max verbal cues to try new strategies. EKLUTNA interferes with command following at times. OT- Vision and Hearing OT- Hearing Assessment OT- Hearing Assessment Hearing Impaired M7 OT- IP Mobility and Balance Start: 01/18/19 17:41 Freq: Status: Active Protocol: Document 01/20/19 09:25 PJM (Rec: 01/20/19 12:30 [facility] [id number]) OT- Bed Mobility Assessment Rolling Type of Rolling Roll to Left Level of Assistance Contact Guard Assistance 1 Person Assistance Head of Bed Elevated Bedrails Supine to Sit Supine to Sit Assist Contact Guard Assistance 1 Person Assistance Head of Bed Elevated Bedrails Scooting Scooting to Edge of Bed Contact Guard Assistance 1 Person Assistance OT-Transfer Assessment Sit to and From Stand Sit to and from Stand Moderate Assistance 1 Person Assistance Use of Upper Extremities Transfers Transfer Ability Moderate Assistance 2 Person Assistance Technique Transfer Destination Chair Transfer Technique Stand Step Pivot Devices Transfer Assistive Devices Gait Belt Front Wheeled Walker Comments Mobility Comments Pt demonstrating significant retropulsion when first standing today requiring mod+ assist to prevent falling backwards. Practiced sit to stand from EOB x4 with emphasis on forward weight shift. Pt tends to pull back on FWW when trying to stand and feet tend to slip. Pt mod assist of 2 for stand step transfer to chair with FWW. OT- Balance Assessment Sitting Balance and Reactions Static Sitting Balance Ability Fair Dynamic Sitting Balance Ability Poor Standing Balance and Reactions Static Standing Balance Ability Poor M8 OT- IP Objective Assessments Start: 01/18/19 17:41 Freq: Status: Active Protocol: Document 01/20/19 09:25 PJM (Rec: 01/20/19 12:30 [facility] [id number]) OT Gross Range of Motion Upper Extremity Range of Motion ROM Impairments R wrist extension limited to about 10 degrees by stiffness. OT Strength Comments Strength Comments decreased R wrist extensor strength noted today. Pt states he noticed this at home prior to admit. OT- Coordination Assessment Comments Coordination Comments significant R hand dexterity deficits noted during self feeding with decreased motor planning noted when new strategies introduced OT Sensation Assessment Edema Edema Present RLE Edema Comments Re wrapped RLE with figure 8 zakiya wraps. EDUCATION TEACHER to check on availability of thigh high BERNABE hose and these will be placed in RN can get order from MD for them. Pt has compression hose at home for long standing RLE lymphedema but was not wearing them recently. M9 OT- IP Assessment and Plan Start: 01/18/19 17:41 Freq: Status: Active Protocol: Document 01/20/19 09:25 PJM (Rec: 01/20/19 12:30 PJM [email or web address]) OT Summary Assessment and Plan Summary OT Impairments Strength Balance Functional Cognition Functional Mobility Self-Feeding Grooming Dressing Toileting Bathing Toilet Transfers Shower Transfers Progress Towards Goals Slow Progress due to Cognition Assessment Summary Pt's conversation remains confused at times, but he is alert and follows one step commands with good effort and participation. He appears to have significant motor planning deficits during sit to stand and transfers with retropulsion and BLE stiffness noted. He has R wrist weakness and poor self monitoring which interferes with self feeding. Pt currently needs assist/ supervision during all waking hours for safety due to cognitive status and significant assist with all self care and functional mobility. Recommend SNF at d/c for further subacute rehab services as he is far below his baseline level of function. Goals Self-Feeding Goal Standby Assistance Grooming Goal Standby Assistance Dressing Goal Moderate Assistance Toileting Goal Minimal Assistance Bathing Goal Moderate Assistance Toilet Transfer Goal Contact Guard Assistance Shower Transfer Goal Contact Guard Assistance Days to Meet Goals 7 Frequency of Treatment Frequency Of Treatment Once a Day Treatment Plan OT Treatment Plan ADL Training Functional Cognition Training Functional Mobility Patient/Family Education Discharge Planning Discharge Recommendations OT Discharge Recommendations SNF Rehab
--- NOTE | 2019-01-20 11:00 | PT.IPTN ---
Current Diagnoses Retention of urine, unspecified (01/17/19) Physical Therapy Treatment Note M2 PT-IP Current Condition Start: 01/18/19 11:43 Freq: NEEDED Status: Active Protocol: Document 01/18/19 17:19 AB (Rec: 01/18/19 18:37 AB [id number]) Physical Therapy Current Condition Current Condition Evaluation Date 01/18/19 Treatment Diagnosis AMS; difficulty in walking Onset Date 01/17/19 Precautions Other Precautions falls M3 PT-IP Subjective Start: 01/18/19 11:43 Freq: NEEDED Status: Active Protocol: Document 01/20/19 11:00 GGD (Rec: 01/20/19 12:09 GGD [id number]) Subjective Physical Therapy Visit Type Type Treatment Note Visit Start Time 10:30 Visit Stop Time 11:00 Total Visit Minutes 30 Number of COCOA ROOM OPERATOR Visits 2 Physical Therapy Visit Comments Patient Comments Pt states he is tired, had a bad night sleep last night. M4 PT-IP Mobility and Gait Start: 01/18/19 11:43 Freq: NEEDED Status: Active Protocol: Document 01/20/19 11:00 GGD (Rec: 01/20/19 12:09 GGD [id number]) PT-Bed Mobility Assessment Sit to Supine Sit to Supine Contact Guard Assistance Scooting Scooting to Edge of Bed Contact Guard Assistance Scooting Up and Down in Bed Contact Guard Assistance PT-Transfer Assessment Sit to and From Stand Sit to and from Stand Contact Guard Assistance Equipment Transfer Assistive Device Gait Belt Front Wheeled Walker Transfers Transfer Destination Bed Transfer Ability Level of Assist Minimal Assistance 1 Person Assistance Use of Upper Extremities Gait Assessment Gait Gait Assistance Required: Contact Guard Assist Distance (Feet) 220 Assistive Devices Assistive Device Gait Belt Front Wheeled Walker Orthotic/Prosthetic Devices or Brace: No Gait Deviations General Gait Pattern Decreased Stride Length Decreased Feet Clearance Festinating Step-to Gait Factors Limiting Gait Function Factors Limiting Gait Function Decreased Activity Tolerance Decreased Strength Difficulty Following Directions Poor Balance Poor Safety Awareness Comments Gait Comments Pt need mod cues and assistance with FWW in room, but improved with hernandez way ambulation. M5 PT-IP Objective Assessments Start: 01/18/19 11:43 Freq: NEEDED Status: Active Protocol: Document 01/18/19 17:19 AB (Rec: 01/18/19 18:37 AB [id number]) Orientation Orientation/Cognition Level of Alertness Confusional State Orientation Name Month Year Safety Awareness Decreased Safety Awareness Memory Description Short Term Impaired Senior Living Impaired Gross Range of Motion Lower Extremity ROM Assessment Within Functional Limits Strength Lower Extremity Strength Assessment Bilaterally Impaired Knee 3+/5 Sensation Assessment Sensation Gross Sensation Right LE Impaired Left LE Impaired Light Touch Impaired Proprioception (Position) Impaired Sensation Description Numbness Tingling Pain Comments Sensation Comments c/o numbness/tingling from the knee down to toes Muscle Tone Muscle Tone WNL Yes M6 PT-IP Treatment Start: 01/18/19 11:43 Freq: NEEDED Status: Active Protocol: Document 01/18/19 17:19 AB (Rec: 01/18/19 18:37 AB [id number]) Physical Therapy Treatment Education Education Provided Safety M7 PT-IP Assessment and Plan Start: 01/18/19 11:43 Freq: NEEDED Status: Active Protocol: Document 01/20/19 11:00 GGD (Rec: 01/20/19 12:09 GGD [id number]) PT Summary Assessment and Plan Summary Assessment Summary Pt improving slowly. He is slow moving and needs increase in time to follow cues. He did improve with gait and management of FWW. He needed increase in cues with fatigue. Frequency of Treatment Frequency Of Treatment Once a Day Treatment Plan Physical Therapy Treatment Plan Bed Mobility Training Transfer Training Gait Training Therapeutic Exercise Balance Retraining Discharge Planning Hot or Cold Pack Neuromuscular Re-ed Coordination Retraining Manual Therapy Other Recommendations and Next Treatment ambulation Focus Recommendations To Nursing Amount of Assist Needed 1 Person Assist Discharge Recommendations PT Discharge Recommendations Home with Assistance Home Health
--- NOTE | 2019-01-20 12:35 | SLP.IPNOTE ---
Attempted to see pt x2. Pt had a difficult night per nursing. When this MACHINE SET UP OPERATOR PAPER GOODS tried to see him, he was sleeping and declined therapy. Second trial at noon meal, pt still sleeping. Will try later if possible.
--- NOTE | 2019-01-20 13:11 | PC.NURSE ---
Pt more alert and oriented today. He is up walking with walker and PT. Walked the loop and then sat up in his chair for a while today. His is in visiting with him now.
--- NOTE | 2019-01-20 13:36 | PM.PN.1 ---
Subjective Date Patient Seen: 01/20/19 Time Patient Seen: 13:37 Interval history: Follow-up on altered mental status Patient seen at bedside. Currently is AAO x2-3. He is more conversant, able to answer questions, and seems to carry conversation. Overnight became a little confused and paranoid but improved with morning time. Exam Vital Signs (past 8 hours): - 01/20/19 09:00 Temperature 97.9 F Pulse Rate 83 Respiratory Rate 18 Blood Pressure 115/71 Pulse Oximetry 98 Oxygen Delivery Method Room Air Oxygen Flow Rate 0 Narrative Exam Narrative: General: AAO x2, no acute distress. More alert HEENT: PERRLA bilaterally, EOMI bilaterally Neck: Supple, no lymphadenopathy CV: Regular rate rhythm, no murmurs or gallops Respiratory: Clear to auscultation bilaterally, no crackles or rhonchi GI: Positive bowel sounds in all 4 quadrants Musculoskeletal: Moves all extremities Extremities: Lower extremity swelling, right more than left, 3 to 4+. Warm to palpation, erythematous but not infectious looking Skin: No bruising or lesions Neuro: AAO x 2, no focal deficits. Objective Labs Result Diagrams: 01/20/19 06:40 01/20/19 06:40 Labs: Laboratory Results - last 24 hr 01/20/19 01/20/19 06:40 06:40 WBC 4.5 RBC 3.97 L Hgb 12.2 L Hct 35.3 L MCV 88.9 MCH 30.7 MCHC 34.6 RDW 13.9 Plt Count 139 L Neut % (Auto) 61.1 Lymph % (Auto) 19.9 L Cherry % (Auto) 15.6 H Eos % (Auto) 3.0 Baso % (Auto) 0.4 Neut # (Auto) 2700 Lymph # (Auto) 900 L Cherry # (Auto) 700 Eos # (Auto) 100 Baso # (Auto) 0 Sodium 140 Potassium 3.4 Chloride 108 H Carbon Dioxide 26 BUN 9 Creatinine 0.70 Estimated GFR > 60.0 BUN/Creatinine Ratio 12.9 Glucose 89 Calcium 8.3 L Assessment & Plan Assessment & Plan narrative: 78yo M with PMH of HTN, Prostate ca, and incontinence admitted to medical floor with AMS. 1. Acute encephalopathy -Patient's mentation is resolving. He is AAOx2-3 today -laboratory workup is essentially unremarkable -head CT demonstrates only chronic small vessel changes and chest x-ray only mild emphysema. UA negative for infection -MRI brain showed chronic microvascular ischemic changes, but no acute lesions -patient seems to be back at baseline, possible discharge back to [facility] tomorrow 2. LE swelling, R>L -LE Duplex is negative for acute DVT -Will give Lasix 40mg IV x1 and assess after diuresis. May need repeat dose tomorrow 3. Hypertension, chronic -BP stable at this time -Monitor, initiate antihypertensives as needed 4. Genital candidiasis, acute -treatment initiated on ER visit 01/06/2019 -continue ketoconazole daily 5. Prostate cancer, chronic -s/p prostatectomy and chemotherapy, no evidence of recurrence 6. Neuropathy lower extremities, chronic - currently not on medication. monitor Dispo: Patient's mentation approaching baseline. Diuresing LE swelling. Possible discharge to [facility] tomorrow.
--- NOTE | 2019-01-20 15:03 | CM.DPNOTE ---
According to Dr Cardoso, pt ready for DC in the next 24 hrs. Placed call to Daniella w/ [facility]; she said pt was indp at baseline, needing some assist w/showering. Lacie at [facility] will come over to hospital today to assess for pt returning home tomorrow, Wednesday. Reviewed therapy notes w/ Daniella, she indicated staff would secure outpt PT for pt, likely not HH PT. Per Lydia at [facility], bed being held there in case pt requires SNF level of care. This FOREST BOTANY INSTRUCTOR unable to discuss/review DCP w/pt and spouse today. Spouse lives in [place], has no phone according to Daniella/[facility] and can be extremely difficult to update. Spouse planning on spending the night Wed. PT= Home w/assistance P: Hopefully back to [facility] Wednesday via w/c van. Following. JERICHO Mae
[2019-01-20 15:52] VITALS: BP 108/69; PULSE 88; RESP 18; TEMP 36.8; O2SAT 99
--- NOTE | 2019-01-20 16:47 | PC.NURSE ---
Addendum entered by Kim Johnson R.N. 01/20/19 20:20: Urinary cath patent, 2PA FWW back to bed. Bed bath given. Removed zakiya wrap to RLE, replaced after 1 hour break. Edema worse in R LE. 3+ pitting. PP+ doppler. No impulsive behaviors, waiting for staff assist. Original Note: PM shift Pt had visit from [facility] staff, assessing him for readmission back to facility tomorrow. [facility] requested PT orders at time of d/c, for physical decline.
[2019-01-20 19:00] VITALS: BP 139/90; PULSE 73; RESP 20; TEMP 37; O2SAT 96
[2019-01-21] VITALS (9 sets, daily range): BP systolic 101–143; BP diastolic 59–86; PULSE 63–90; RESP 16–20; TEMP 36.2–38.8; O2SAT 95–100
--- NOTE | 2019-01-21 | DI.RAD.S_ITS ---
PROCEDURE: XR KUB INDICATIONS: Obstipation TECHNIQUE: One view of the abdomen acquired. COMPARISON: None. FINDINGS: Surgical changes and devices: None. Bowel: Bowel gas pattern is normal. Soft tissues: No suspicious abdominal calcifications. Visualized solid organ contours appear normal in size. Multiple phleboliths are scattered throughout the pelvis. Bones: No suspicious bony lesions. IMPRESSION: No acute intra-abdominal findings. Dictated by: Tiesha Bolden M.D. on 01/21/2019 at 18:08 Approved by: Tiesha Bolden M.D. on 01/21/2019 at 18:09
[2019-01-21] MEDS: PANTOPRAZOLE 20 MG TABLET PO (05:59)
[2019-01-21 06:22] LABS: Add Manual Diff / Slide Review NO; Basophils Absolute Auto 0 /uL (0-100); Basophils Percent Auto 0.8 % (0-2); Eosinophils Absolute Auto 200 /uL (0-450); Eosinophils Percent Auto 4.4 % (2-4); Hematocrit 36.1 % (41-53); Hemoglobin 12.3 g/dL (13.5-17.5); Lymphocytes Absolute Auto 1100 /uL (1100-4500); Lymphocytes Percent Auto 26.1 % (25-40); Mean Corpuscular Hemoglobin 30.5 PG (26-34); Mean Corpuscular Volume 89.7 fL (80-100); Monocytes Absolute Auto 500 /uL (0-900); Monocytes Percent Auto 12.9 % (3-14); Neutrophils Absolute Auto 2300 /uL (1500-7000); Neutrophils Percent Auto 55.8 % (50-75); Platelet Count 141 X10^3/uL (150-400); Red Blood Cell Count 4.02 X10^6/uL (4.5-5.9); Red Cell Distribution Width 13.9 % (11.6-14.8); White Blood Cell Count 4.1 X10^3/uL (4.5-11.0)
[2019-01-21 06:29] LABS: BUN Creatinine Ratio 17.1 (6-22); Blood Urea Nitrogen 12 mg/dL (9-20); Calcium 8.3 mg/dL (8.4-10.2); Carbon Dioxide 27 mmol/L (22-32); Chloride 105 mmol/L (98-107); Estimated Glomerular Filt Rate > 60.0 mL/min (>60); Glucose 83 mg/dL (80-110); HEMOLYSIS < 15 (0-50); Potassium 3.2 mmol/L (3.4-5.1); Sodium 138 mmol/L (137-145)
[2019-01-21] MEDS: POTASSIUM CHLORIDE 20 MEQ TAB 40 MEQ PO (10:41)
--- NOTE | 2019-01-21 10:41 | PM.DS.1 ---
History of Present Illness Date Patient Seen: 01/21/19 Chief complaint: Confused Narrative: This is an 78-year-old male patient with a history hypertension, prostate CA status post prostatectomy with associated incontinence of stool skin cancer and scrotal candidiasis was sent to the emergency by his caregivers at [facility] for mental status. Patient is presently residing at [facility] in [facility] living where he is typically alert, ambulatory and conversant that today developed confusion difficulty eating and weakness. They are caregivers say he would say inappropriate words at inappropriate times. Was no focal or unilateral weakness noted but is a far deviation from his baseline functioning prompting his evaluation. The patient also reports right leg pain with marked swelling of the entire length of the right leg with warmth and redness of the right lower extremity. 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 At that time he told provider that he use a diaper related urinary incontinence but had not changed it for 2 weeks. When asked why he was unable to provide an answer. The patient is under the care of Dr. Alarcon. The patient denies injuries or falls, recent illness fevers or chills. Denies headaches or dizziness, no difficulty hearing and describes visual changes over the last 1 and half years currently wearing glasses. He denies head congestion or sore throat and reports no difficulty chewing or swallowing. Denies chest pain or palpitations, shortness of breath cough wheezing. He denies abdominal pain, nausea or vomiting. He is chronically incontinent of stool since his prostatectomy. 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 Patient arrived in the emergency department at 7:45 p.m. at that time was afebrile with temperature of 97.8?, a blood pressure of 162/96, heart rate of 87, respirations of 20 saturating at 100% on room air. Laboratory testing was completed which finds a normal CBC with a white count of 6.3, hemoglobin 13.4 and hematocrit 39.7 with no shift. His CMP is within normal range Sebastian does have BUN of 22 and a creatinine of 0 9 appearing somewhat dehydrated. Patient was started on IV normal saline emergency department 150 cc an hour. Head CT was completed which identifies chronic small vessel changes and a chest x-ray revealing mild emphysema. His toxicology screen and lactate were negative has an INR of 1.1. He does have a slightly elevated prolactin 18.8. The patient is admitted for altered mental status of unknown etiology. Discharge Providers Date of admission: 01/17/19 22:31 Discharge Date: 01/21/19 Primary care physician: Bill Alarcon MD Consults: 01/17/19 23:41 Consult to Occupational Therapy Evaluate & Treat Comment: Altered mental status, generalized weakness Physician Instructions: Evaluate and treat Consult to Physical Therapy Evaluate & Treat Comment: Altered mental status, generalized weakness Physician Instructions: Evaluate and Treat 01/17/19 23:42 Consult to Speech Therapy Evaluate & Treat Comment: report of dysphagia yesterday, swallow eval Physician Instructions: Evaluate and treat 01/20/19 04:55 Consult to Copy Center Specialist Routine Comment: Cannot reach the pt's , multi calls no answer Discharge provider: Chris Blount MD Summary Discharge Diagnosis: 1. Acute encephalopathy without distinctive etiology identified. 2. LE swelling, R>L 3. Hypertension, chronic 4. Genital candidiasis, acute 5. Prostate cancer, chronic 6. Neuropathy lower extremities, chronic 7. Hypokalemia Hospital Course: 1. Acute encephalopathy, with urinary tract infection, stroke, electrolyte abnormalities, other signs of infection all ruled out. -Patient's mentation has apparently returned to his baseline per his . He is only oriented to his name today. -laboratory workup is essentially unremarkable, except for the low potassium that was caused by his diuresis while here. -head CT demonstrates only chronic small vessel changes and chest x-ray only mild emphysema. UA negative for infection -MRI brain showed chronic microvascular ischemic changes, but no acute lesions. He was unable to stay still enough for a definitive scan. -patient seems to be back at baseline, and will be returning back to the [facility] facility today. 2. LE swelling, R>L -LE Duplex is negative for acute DVT -he was given Lasix yesterday with a subsequent drop in potassium to 3.2 today. This did help the edema. 3. Hypertension, chronic -BP stable at this time -Monitor, initiate antihypertensives as needed 4. Genital candidiasis, acute -treatment initiated on ER visit 01/06/2019 -continue ketoconazole daily 5. Prostate cancer, chronic -s/p prostatectomy and chemotherapy, no evidence of recurrence 6. Neuropathy lower extremities, chronic - currently not on medication. monitor 7. Hypokalemia. Treat with potassium chloride 40 mEq here today and then continue 10 mEq daily for another week with follow-up levels per his primary care. He will not be on Lasix long-term. Status at Discharge Overall status at discharge: patient is back to baseline Time Spent with Patient Less than 30 minutes Exam Vital Signs (past 8 hours): - 01/21/19 05:00 01/21/19 09:00 Temperature 97.2 F L 97.8 F Pulse Rate 63 65 Respiratory Rate 20 18 Blood Pressure 116/65 109/70 Pulse Oximetry 96 95 Oxygen Delivery Method Room Air Oxygen Flow Rate 0 Narrative Exam Narrative: When I 1st enter the room he is asleep and seems to be somewhat confused and difficult to communicate with. I returned later when his is present and she is profoundly hard of hearing, but with her in the room he is much more alert and conversant. He is only oriented to his name. Heart is regular rate and rhythm without murmur. Lungs are clear to auscultation bilaterally. Abdomen is soft, bowel sounds positive, nontender, no organomegaly. Extremities have no ankle edema. Objective Labs Result Diagrams: 01/21/19 06:13 01/21/19 06:13 Labs: Laboratory Results - last 24 hr 01/21/19 01/21/19 06:13 06:13 WBC 4.1 L RBC 4.02 L Hgb 12.3 L Hct 36.1 L MCV 89.7 MCH 30.5 MCHC 34.0 RDW 13.9 Plt Count 141 L Neut % (Auto) 55.8 Lymph % (Auto) 26.1 [place] % (Auto) 12.9 Eos % (Auto) 4.4 H Baso % (Auto) 0.8 Neut # (Auto) 2300 Lymph # (Auto) 1100 [place] # (Auto) 500 Eos # (Auto) 200 Baso # (Auto) 0 Sodium 138 Potassium 3.2 L Chloride 105 Carbon Dioxide 27 BUN 12 Creatinine 0.70 Estimated GFR > 60.0 BUN/Creatinine Ratio 17.1 Glucose 83 Calcium 8.3 L Discharge Plan Discharge Plan Patient Disposition: Home Discharge comment: Please try to make a follow-up appointment with Dr. Alarcon next week. You will need to take a potassium tablet every day for at least the next week. Your potassium level will need to be rechecked soon. You will also be referred to the Physical Therapy office at [facility] for strengthening. Discharge Med Rec/Prescriptions Prescriptions: New potassium chloride 10 mEq capsule, extended release 10 meq PO DAILY Qty: 10 RF: 0 Continued aspirin 81 mg Tablet,Delayed Release (Dr/Ec) 81 mg PO DAILY RF: 0 cyanocobalamin (vitamin B-12) [Vitamin B-12] 500 mcg Tablet 500 mcg PO DAILY RF: 0 cholecalciferol (vitamin D3) [Vitamin D3] 1,000 unit Tablet 1,000 unit PO DAILY RF: 0 zinc oxide 15 % cream See Rx Instructions .ROUTE .COMPLEX Qty: 99 RF: 0 ketoconazole 2 % cream See Rx Instructions .ROUTE .COMPLEX Qty: 30 RF: 0 Follow up/Referrals: Bill Alarcon MD [Primary Care Provider] - Provider Discharge Instructions Diet: Diet as Tolerated Activity: PT referral for weakness Discharge Data Primary Care Provider: Bill Alarcon V Attending Provider: Henry Rodríguez Admryan Date/Time: 01/17/19 22:31
[2019-01-21] MEDS: ENOXAPARIN 40 MG/0.4 ML SYRINGE SUBCUT (10:42)
[2019-01-21] MEDS: ASPIRIN EC 81 MG TABLET PO (10:42)
[2019-01-21] MEDS: KETOCONAZOLE 2% CREAM 15 GM 1 APPLIC TOP (10:43)
[2019-01-21] MEDS: SODIUM CHLORIDE 0.9% FLUSH 10 ML IV (10:43)
--- NOTE | 2019-01-21 11:00 | PT.IPTN ---
Current Diagnoses Retention of urine, unspecified (01/17/19) Physical Therapy Treatment Note M2 PT-IP Current Condition Start: 01/18/19 11:43 Freq: NEEDED Status: Active Protocol: Document 01/18/19 17:19 AB (Rec: 01/18/19 18:37 AB [id number]) Physical Therapy Current Condition Current Condition Evaluation Date 01/18/19 Treatment Diagnosis AMS; difficulty in walking Onset Date 01/17/19 Precautions Other Precautions falls M3 PT-IP Subjective Start: 01/18/19 11:43 Freq: NEEDED Status: Active Protocol: Document 01/21/19 11:00 GGD (Rec: 01/21/19 11:45 GGD [id number]) Subjective Physical Therapy Visit Type Type Treatment Note Visit Start Time 10:30 Visit Stop Time 11:00 Total Visit Minutes 30 Number of WASHROOM OPERATOR Visits 3 Physical Therapy Visit Comments Patient Comments Pt states he would like to work with therapy. M4 PT-IP Mobility and Gait Start: 01/18/19 11:43 Freq: NEEDED Status: Active Protocol: Document 01/21/19 11:00 GGD (Rec: 01/21/19 11:45 GGD [id number]) PT-Bed Mobility Assessment Supine to Sit Supine to Sit Contact Guard Assistance Scooting Scooting to Edge of Bed Contact Guard Assistance PT-Transfer Assessment Sit to and From Stand Sit to and from Stand Contact Guard Assistance Equipment Transfer Assistive Device Gait Belt Front Wheeled Walker Transfers Transfer Destination Bed Transfer Ability Level of Assist Minimal Assistance 1 Person Assistance Use of Upper Extremities Comments Mobility Comments pt need min a for stand to sit , but 2nd time pt with SBA for sit to stand. Gait Assessment Gait Gait Assistance Required: Contact Guard Assist Distance (Feet) 220 Assistive Devices Assistive Device Gait Belt Front Wheeled Walker Orthotic/Prosthetic Devices or Brace: No Gait Deviations General Gait Pattern Decreased Stride Length Decreased Feet Clearance Festinating Step-to Gait Factors Limiting Gait Function Factors Limiting Gait Function Decreased Activity Tolerance Decreased Strength Difficulty Following Directions Poor Balance Poor Safety Awareness Comments Gait Comments Pt need min cues M5 PT-IP Objective Assessments Start: 01/18/19 11:43 Freq: NEEDED Status: Active Protocol: Document 01/18/19 17:19 AB (Rec: 01/18/19 18:37 AB [id number]) Orientation Orientation/Cognition Level of Alertness Confusional State Orientation Name Month Year Safety Awareness Decreased Safety Awareness Memory Description Short Term Impaired Pipe [place]ulker Impaired Gross Range of Motion Lower Extremity ROM Assessment Within Functional Limits Strength Lower Extremity Strength Assessment Bilaterally Impaired Knee 3+/5 Sensation Assessment Sensation Gross Sensation Right LE Impaired Left LE Impaired Light Touch Impaired Proprioception (Position) Impaired Sensation Description Numbness Tingling Pain Comments Sensation Comments c/o numbness/tingling from the knee down to toes Muscle Tone Muscle Tone WNL Yes M6 PT-IP Treatment Start: 01/18/19 11:43 Freq: NEEDED Status: Active Protocol: Document 01/18/19 17:19 AB (Rec: 01/18/19 18:37 AB [id number]) Physical Therapy Treatment Education Education Provided Safety M7 PT-IP Assessment and Plan Start: 01/18/19 11:43 Freq: NEEDED Status: Active Protocol: Document 01/21/19 11:00 GGD (Rec: 01/21/19 11:45 GGD [id number]) PT Summary Assessment and Plan Summary Assessment Summary Pt improving with mobility. He needed less assist for bed mobility. He did need min cues for hand placement, safe sit to stand and step length with gait. Frequency of Treatment Frequency Of Treatment Once a Day Treatment Plan Physical Therapy Treatment Plan Bed Mobility Training Transfer Training Gait Training Therapeutic Exercise Balance Retraining Discharge Planning Hot or Cold Pack Neuromuscular Re-ed Coordination Retraining Manual Therapy Other Recommendations and Next Treatment ambulation Focus Recommendations To Nursing Amount of Assist Needed 1 Person Assist Discharge Recommendations PT Discharge Recommendations Home with Assistance Home Health
--- NOTE | 2019-01-21 12:33 | CM.DPC ---
Addendum entered by JERICHO Atkins 01/21/19 16:05: ADD: Per RN, pt accepted suppository but initially declined enema but after a short bit pt was agreeable to enema. DANIELE called [facility] and confirmed that if pt has bowel movement by [id number] they could still accept. DANIELE updated RN, FILLER MIXER, and jewelry department supervisor and they will call the provided RN number at [facility] if pt has bowel movement prior to 1600. BF Original Note: Addendum entered by JERICHO Atkins 01/21/19 14:10: ADD: Call from JIMBO Puri at [facility], stating in report notes that pt has not had bowel movement since his admit. They cannot accept pt back until he has a bm prior to discharge. DANIELE updated RN and jewelry department supervisor who will talk with MD about getting an order for possible suppository. BF Original Note: DCP Discharge back to [facility]: Per MD, pt is medically stable to d/c back to his Assisted Living Facility today. DANIELE called Daniella at [facility] and confirmed that she completed bedside assessment yesterday evening and they can accept the pt today and provide transport. DANIELE met bedside with pt and spouse Berna and explained role and discussed d/c plan of return to [facility]. Pt still a little confused and spouse states he has lived about 6 places in the past 6 months between their home on [address], hospital stays, SNF, and now very recent move into [facility]. Spouse is comfortable with pt discharging back to [facility] and explained to pt that he has stayed there for about a week and therefore his concerns with his boxes and bedding is resolved and [facility] is set up for him to return. DANIELE updated RN and HEAD OF INTEGRATED MEDIA will help to shower patient prior to d/c to [facility] today. Spouse will go with pt to settle him into his room there. DANIELE faxed d/c summary and signed med rec to [facility] and updated the accepting RN at [facility] of the 1400 time for transport and she confirmed that they are able to accept and provide transport at that time. DANIELE provided the RN report line ([phone]) to the RN to call report to when pt is ready. Plan: Patient to d/c back to [facility] today around 1400 via facility van. JERICHO Atkins
--- NOTE | 2019-01-21 13:44 | PC.NURSE ---
Addendum entered by Melia Mckenzie R.N. 01/21/19 15:33: Had a couple small hard pieces of stool after suppository but felt like there was more still that he couldn't eliminate. Agreed to enema which was administered by this marketing underwriter once patient had been assisted back to bed. Left on L side-lying position. Call light in reach, bed alarm on. Original Note: Addendum entered by Melia Mckenzie R.N. 01/21/19 14:40: GI: Staff from [facility] called back and indicated they would not accept patient since his last documented BM was 4 days ago. Got order for enema which patient refused. Given Dulcolax suppository instead. Sitting on commode now, COMMUNITY PRODUCT SPECIALIST in attendance. Original Note: Transfer: IV dc'd intact. All personal belongings packed up and ready to send with patient. Report called to Olga Mcmullen at [facility]. Suggested BERNABE hose (as per discussion w/Dr Blount) to replace zakiya wrap to RLE. Discharging w/ david in place. Sitting up in chair finishing his lunch. Awaiting transport. States no needs at this time. Light in reach, chair alarm on.
[2019-01-21] MEDS: BISACODYL 10 MG SUPP PR (14:27)
[2019-01-21] MEDS: FLEETS ENEMA 1 EACH PR (15:28)
[2019-01-21] MEDS: DOCUSATE 250 MG CAPSULE PO (20:39)
[2019-01-21] MEDS: ACETAMINOPHEN 325 MG TABLET 650 MG PO (21:43)
--- NOTE | 2019-01-21 22:33 | PC.NURSE ---
contesting DC/Sundowning/hallucinations pt incontinent of stool post administered enema. Up to BR with FWW and 2 assist to attempt further bowel relief. Pt having dripping stool when up in BR but when termite control representative from [facility] arrived to transfer pt, pt refused to DC. Pt voiced that going to [facility] would be agreeing to go to a step down unit. pt than started saying he/we hadn't finished the job clearing out his bowels. than stated he was having right hand weakness (which seemingly resolved one pt agreeable to out of BR). le in to see/assess pt and agreeable to keep pt with appealing his DC. Pt has since has multiple liquid/loose stools. Pt increasingly confused and having hallucinations (look out for that water over there) as the evening progresses. pt thinks he's about to fall when attempting to get up with staff assist. Pt's present in room and states hallucinations and evening confusion have been baseline for pt and that their PCP is aware of behavior.
[2019-01-22 00:26] VITALS: TEMP 36.9
--- NOTE | 2019-01-22 00:44 | PC.NURSE ---
Elevated temp. 100.5 cooling measures applied & turned down thermostat to 70 degrees. Thermostat was set @ 80 degrees. Rechecked his temp. @ 0026 down to 98.5. Will cont. POC & monitor.
[2019-01-22 04:17] VITALS: BP 117/67; PULSE 85; RESP 16; TEMP 37.2; O2SAT 97
[2019-01-22] MEDS: PANTOPRAZOLE 20 MG TABLET PO (05:42)
[2019-01-22 06:25] LABS: BUN Creatinine Ratio 28.8 (6-22); Blood Urea Nitrogen 23 mg/dL (9-20); Calcium 8.3 mg/dL (8.4-10.2); Carbon Dioxide 25 mmol/L (22-32); Chloride 104 mmol/L (98-107); Estimated Glomerular Filt Rate > 60.0 mL/min (>60); Glucose 108 mg/dL (80-110); HEMOLYSIS < 15 (0-50); Magnesium 1.9 mg/dL (1.6-2.3); Potassium 3.4 mmol/L (3.4-5.1); Sodium 136 mmol/L (137-145)
[2019-01-22 06:55] LABS: Thyroid Stimulating Hormone 0.86 uIU/mL (0.47-4.68)
[2019-01-22 07:40] LABS: Add Manual Diff / Slide Review NO; Basophils Absolute Auto 0 /uL (0-100); Basophils Percent Auto 0.3 % (0-2); Eosinophils Absolute Auto 0 /uL (0-450); Eosinophils Percent Auto 0.5 % (2-4); Hematocrit 37.2 % (41-53); Hemoglobin 12.5 g/dL (13.5-17.5); Lymphocytes Absolute Auto 1100 /uL (1100-4500); Lymphocytes Percent Auto 10.6 % (25-40); Mean Corpuscular HGB Conc 33.6 % (30-36); Mean Corpuscular Hemoglobin 30.1 PG (26-34); Mean Corpuscular Volume 89.8 fL (80-100); Monocytes Absolute Auto 1100 /uL (0-900); Monocytes Percent Auto 11.1 % (3-14); Neutrophils Absolute Auto 7800 /uL (1500-7000); Neutrophils Percent Auto 77.5 % (50-75); Platelet Count 96 X10^3/uL (150-400); Red Blood Cell Count 4.15 X10^6/uL (4.5-5.9); Red Cell Distribution Width 13.9 % (11.6-14.8)
[2019-01-22 08:22] VITALS: BP 93/58; PULSE 91; RESP 17; TEMP 36.9; O2SAT 96
--- NOTE | 2019-01-22 08:25 | CM.DPC ---
Contest Discharge Per RN, pt completed bowel movements yesterday evening and [facility] was called and arrived around 1630 to transport and pt refused to discharge. MD and also attempted to encourage pt to discharge and he continued to refuse. Per RN this morning, pt is stable with no fever and his potassium levels are normal and currently no identified medical concerns. Pt has had a few bowel movements since his enema/suppository and pt somewhat alert and oriented but seems to have some frustrations with feeling that he is being discharged from the hospital too soon and would like to not be having regular bowel movements prior to discharge. DANIELE met bedside with pt and spouse and explained role again and discussed d/c back to [facility] today. Pt making comments that he feels the hospital is trying to prove him wrong and wasting money and is difficult for pt not to perseverate on his bowel movements and staying in the hospital. SW discussed the need for pt to have medical justification for staying in the hospital so that he would not potentially be held liable for the hospital bill since he has been discharged. Pt is observation status for multiple days and does not qualify for Contesting Discharge through Medicare. DANIELE updated MD and RN and MD aware of increase in white count but still in normal range and no medical justification to keep the pt in the hospital another day. DANIELE called [facility] RN at [phone] and updated on pt status and his hesitancy with discharging the hospital but medically stable and we discussed sending a very supportive/encouraging [facility] staff over for transport to help support and ease the pt transition. [facility] plans to attempt transport today around 1030 and RN updated with RN report phone number for today. D/C summary and signed med rec had been faxed yesterday and no changes to them today. Plan: SW to follow for hopeful pt d/c back to [facility] today around 1030. JERICHO Atkins
[2019-01-22] MEDS: ENOXAPARIN 40 MG/0.4 ML SYRINGE SUBCUT (09:30)
[2019-01-22] MEDS: ASPIRIN EC 81 MG TABLET PO (09:30)
[2019-01-22] MEDS: KETOCONAZOLE 2% CREAM 15 GM 1 APPLIC TOP (09:39)
--- NOTE | 2019-01-22 10:37 | PM.DS.1 ---
History of Present Illness Chief complaint: Confused Narrative: This is an 78-year-old male patient with a history hypertension, prostate CA status post prostatectomy with associated incontinence of stool skin cancer and scrotal candidiasis was sent to the emergency by his caregivers at [facility] for mental status. Patient is presently residing at [facility] in assisted living where he is typically alert, ambulatory and conversant that today developed confusion difficulty eating and weakness. They are caregivers say he would say inappropriate words at inappropriate times. Was no focal or unilateral weakness noted but is a far deviation from his baseline functioning prompting his evaluation. The patient also reports right leg pain with marked swelling of the entire length of the right leg with warmth and redness of the right lower extremity. 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 At that time he told provider that he use a diaper related urinary incontinence but had not changed it for 2 weeks. When asked why he was unable to provide an answer. The patient is under the care of Dr. Alarcon. The patient denies injuries or falls, recent illness fevers or chills. Denies headaches or dizziness, no difficulty hearing and describes visual changes over the last 1 and half years currently wearing glasses. He denies head congestion or sore throat and reports no difficulty chewing or swallowing. Denies chest pain or palpitations, shortness of breath cough wheezing. He denies abdominal pain, nausea or vomiting. He is chronically incontinent of stool since his prostatectomy. 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 Patient arrived in the emergency department at 7:45 p.m. at that time was afebrile with temperature of 97.8?, a blood pressure of 162/96, heart rate of 87, respirations of 20 saturating at 100% on room air. Laboratory testing was completed which finds a normal CBC with a white count of 6.3, hemoglobin 13.4 and hematocrit 39.7 with no shift. His CMP is within normal range Sebastian does have BUN of 22 and a creatinine of 0 9 appearing somewhat dehydrated. Patient was started on IV normal saline emergency department 150 cc an hour. Head CT was completed which identifies chronic small vessel changes and a chest x-ray revealing mild emphysema. His toxicology screen and lactate were negative has an INR of 1.1. He does have a slightly elevated prolactin 18.8. The patient is admitted for altered mental status of unknown etiology. Discharge Providers Date of admission: 01/17/19 22:31 Discharge Date: 01/22/19 Primary care physician: Bill Alarcon MD Consults: 01/17/19 23:41 Consult to Occupational Therapy Evaluate & Treat Comment: Altered mental status, generalized weakness Physician Instructions: Evaluate and treat Consult to Physical Therapy Evaluate & Treat Comment: Altered mental status, generalized weakness Physician Instructions: Evaluate and Treat 01/17/19 23:42 Consult to Speech Therapy Evaluate & Treat Comment: report of dysphagia yesterday, swallow eval Physician Instructions: Evaluate and treat 01/20/19 04:55 Consult to Shrub Grower Routine Comment: Cannot reach the pt's , multi calls no answer Discharge provider: Chris Blount MD Summary Discharge Diagnosis: 1. Acute encephalopathy without distinctive etiology identified. 2. LE swelling, R>L 3. Hypertension, chronic 4. Genital candidiasis, acute 5. Prostate cancer, chronic 6. Neuropathy lower extremities, chronic 7. Hypokalemia Hospital Course: 1. Acute encephalopathy, with urinary tract infection, stroke, electrolyte abnormalities, other signs of infection all ruled out. -Patient's mentation has apparently returned to his baseline per his . His orientation is challenging to ascertain. He converses normally at times in the conversation and then other times he is illogical and appears to lose his place in his thoughts/discussion. -laboratory workup is essentially unremarkable, except for the low potassium that was caused by his diuresis while here. -head CT demonstrates only chronic small vessel changes and chest x-ray only mild emphysema. UA was negative for infection and the catheter was removed yesterday without residual urinary difficulty noted. -MRI brain showed chronic microvascular ischemic changes, but no acute lesions. He was unable to stay still enough for a definitive scan. -patient seems to be back at baseline, and will be returning back to the [facility] today. 2. LE swelling, R>L -LE Duplex is negative for acute DVT -he was given Lasix once, which did help the edema. 3. Hypertension, chronic -BP stable at this time 4. Genital candidiasis, acute -treatment initiated on ER visit 01/06/2019 -continue ketoconazole cream daily 5. Prostate cancer, chronic -s/p prostatectomy and chemotherapy, no evidence of recurrence 6. Neuropathy lower extremities, chronic - currently not on medication. monitor 7. Hypokalemia. -improved from 3.2 yesterday to 3.4 today after KCL given. -He will not be continued on Lasix for now. 8. Bowel Movement issues -reportedly he went for 4 days without a bowel movement. -this was treated with Fleet enema successfully yesterday but then the patient decided that his symptoms were not cleared and so wished to stay another night. -he was then given MiraLax, senna and Colace with the resultant loose stools which are now his main issue. -he complains of bubbling, stool incontinence. His magnesium is 1.9 with a TSH of 0.86. -I discussed with him that all of this is a direct result of the intervention from yesterday and is expected. -he continued to feel that this was entirely abnormal and should be further evaluated and treated inpatient instead of back at the assisted living facility. -his KUB did not show excessive stool obstipation. -given the mixed symptoms no outpatient stool softeners will be planned for now, at this point. 9. Fever -last night he had a fever of 100.5, when the room temperature was set at 80?. Once that was turned down to a normal temperature he has had no for further fever. As a precaution a white blood count was checked and was 10. He has no symptoms to suggest pneumonia, UTI, cellulitis etc. He certainly understands that if his fever returns or he develops any new symptoms that the ED is just across the parking lot from his [place]. 10. Reluctance to leave the hospital -multiple discussions last night and again today with the patient, involving social work therapist and other staff. We have gone over his workup, his current symptoms, his objections and the reasons for them, and the Medicare guidelines under which the hospital has to comply. We discussed observation versus inpatient admission status and the reasons for his classification. I did a lot of listening and explained as best as I could some of these very complicated issues. The bottom line is that at this point there are no ongoing medical symptoms that require continued inpatient stay as of this hour. Status at Discharge Cognitive/behavioral status at discharge: He is processing slowly and inaccurately at times. Functional status at discharge: uses cane/walker Time Spent with Patient Greater than 30 minutes Exam Vital Signs (past 8 hours): - 01/22/19 04:17 01/22/19 08:22 Temperature 99.0 F 98.5 F Pulse Rate 85 91 H Respiratory Rate 16 17 Blood Pressure 117/67 93/58 L Pulse Oximetry 97 96 Oxygen Delivery Method Room Air Oxygen Flow Rate 0 Objective Labs Result Diagrams: 01/22/19 05:35 01/22/19 05:35 Labs: Laboratory Results - last 24 hr 01/22/19 01/22/19 01/22/19 05:35 05:35 05:35 WBC 10.0 D RBC 4.15 L Hgb 12.5 L Hct 37.2 L MCV 89.8 MCH 30.1 MCHC 33.6 RDW 13.9 Plt Count 96 L Neut % (Auto) 77.5 H D Lymph % (Auto) 10.6 L [place] % (Auto) 11.1 Eos % (Auto) 0.5 L Baso % (Auto) 0.3 Neut # (Auto) 7800 H Lymph # (Auto) 1100 [place] # (Auto) 1100 H Eos # (Auto) 0 Baso # (Auto) 0 Sodium 136 L Potassium 3.4 Chloride 104 Carbon Dioxide 25 BUN 23 H Creatinine 0.80 Estimated GFR > 60.0 BUN/Creatinine Ratio 28.8 H Glucose 108 Calcium 8.3 L Magnesium 1.9 TSH 0.86 D Discharge Plan Discharge Plan Patient Disposition: Home Discharge comment: Please try to make a follow-up appointment with Dr. Alarcon next week. You will also be referred to the Physical Therapy office at [facility] for strengthening. Discharge Med Rec/Prescriptions Prescriptions: Continued aspirin 81 mg Tablet,Delayed Release (Dr/Ec) 81 mg PO DAILY RF: 0 cyanocobalamin (vitamin B-12) [Vitamin B-12] 500 mcg Tablet 500 mcg PO DAILY RF: 0 cholecalciferol (vitamin D3) [Vitamin D3] 1,000 unit Tablet 1,000 unit PO DAILY RF: 0 zinc oxide 15 % cream See Rx Instructions .ROUTE .COMPLEX Qty: 99 RF: 0 ketoconazole 2 % cream See Rx Instructions .ROUTE .COMPLEX Qty: 30 RF: 0 Follow up/Referrals: Bill Alarcon MD [Primary Care Provider] - Provider Discharge Instructions Diet: Diet as Tolerated Activity: PT referral for weakness Discharge Data Primary Care Provider: Bill Alarcon V Attending Provider: Henry Rodríguez Admryan Date/Time: 01/17/19 22:31
--- NOTE | 2019-01-22 10:47 | PT.IPTN ---
Current Diagnoses Retention of urine, unspecified (01/17/19) Physical Therapy Treatment Note M2 PT-IP Current Condition Start: 01/18/19 11:43 Freq: NEEDED Status: Active Protocol: Document 01/18/19 17:19 AB (Rec: 01/18/19 18:37 AB [id number]) Physical Therapy Current Condition Current Condition Evaluation Date 01/18/19 Treatment Diagnosis AMS; difficulty in walking Onset Date 01/17/19 Precautions Other Precautions falls M3 PT-IP Subjective Start: 01/18/19 11:43 Freq: NEEDED Status: Active Protocol: Document 01/22/19 10:46 CLB (Rec: 01/22/19 10:47 CLB [id number]) Subjective Physical Therapy Visit Type Type Patient Unavailable Notes Pt discharging currently M4 PT-IP Mobility and Gait Start: 01/18/19 11:43 Freq: NEEDED Status: Active Protocol: Document 01/21/19 11:00 GGD (Rec: 01/21/19 11:45 GGD [id number]) PT-Bed Mobility Assessment Supine to Sit Supine to Sit Contact Guard Assistance Scooting Scooting to Edge of Bed Contact Guard Assistance PT-Transfer Assessment Sit to and From Stand Sit to and from Stand Contact Guard Assistance Equipment Transfer Assistive Device Gait Belt Front Wheeled Walker Transfers Transfer Destination Bed Transfer Ability Level of Assist Minimal Assistance 1 Person Assistance Use of Upper Extremities Comments Mobility Comments pt need min a for stand to sit , but 2nd time pt with SBA for sit to stand. Gait Assessment Gait Gait Assistance Required: Contact Guard Assist Distance (Feet) 220 Assistive Devices Assistive Device Gait Belt Front Wheeled Walker Orthotic/Prosthetic Devices or Brace: No Gait Deviations General Gait Pattern Decreased Stride Length Decreased Feet Clearance Festinating Step-to Gait Factors Limiting Gait Function Factors Limiting Gait Function Decreased Activity Tolerance Decreased Strength Difficulty Following Directions Poor Balance Poor Safety Awareness Comments Gait Comments Pt need min cues M5 PT-IP Objective Assessments Start: 01/18/19 11:43 Freq: NEEDED Status: Active Protocol: Document 01/18/19 17:19 AB (Rec: 01/18/19 18:37 AB [id number]) Orientation Orientation/Cognition Level of Alertness Confusional State Orientation Name Month Year Safety Awareness Decreased Safety Awareness Memory Description Short Term Impaired Fare Register Repairer Impaired Gross Range of Motion Lower Extremity ROM Assessment Within Functional Limits Strength Lower Extremity Strength Assessment Bilaterally Impaired Knee 3+/5 Sensation Assessment Sensation Gross Sensation Right LE Impaired Left LE Impaired Light Touch Impaired Proprioception (Position) Impaired Sensation Description Numbness Tingling Pain Comments Sensation Comments c/o numbness/tingling from the knee down to toes Muscle Tone Muscle Tone WNL Yes M6 PT-IP Treatment Start: 01/18/19 11:43 Freq: NEEDED Status: Active Protocol: Document 01/18/19 17:19 AB (Rec: 01/18/19 18:37 AB [id number]) Physical Therapy Treatment Education Education Provided Safety M7 PT-IP Assessment and Plan Start: 01/18/19 11:43 Freq: NEEDED Status: Active Protocol: Document 01/21/19 11:00 GGD (Rec: 01/21/19 11:45 GGD [id number]) PT Summary Assessment and Plan Summary Assessment Summary Pt improving with mobilty. He needed less assist for bed mobility. He did need min cues for hand placement, safe sit to stand and step length with gait. Frequency of Treatment Frequency Of Treatment Once a Day Treatment Plan Physical Therapy Treatment Plan Bed Mobility Training Transfer Training Gait Training Therapeutic Exercise Balance Retraining Discharge Planning Hot or Cold Pack Neuromuscular Re-ed Coordination Retraining Manual Therapy Other Recommendations and Next Treatment ambulation Focus Recommendations To Nursing Amount of Assist Needed 1 Person Assist Discharge Recommendations PT Discharge Recommendations Home with Assistance Home Health
--- NOTE | 2019-01-22 10:59 | PC.NURSE ---
Notified by Dr. Blount and Fiordaliza MURLILO that patient is ready for discharge today back to [facility], apparently patient is agreeable but will not sign paperwork for discharge. Discharge instructions reviewed with and patient, patient states I opt not to sign. Paperwork packet with signed medication list sent with [facility] transport. Patient had 3 incontinent stools this morning, formed parts with loose BM's. Additional stool softner held this morning. Zinc barrier cream and prescribed ointment applied. Patient discharged with at bedside. Belongings sent with patient. No iv in place. Patient picked up by [facility] transport via wheelchair. Patient to follow up with Dr. Alarcon PCP, and continue with referral for PT.
== END 2019-01-22 11:04 | disposition home or self-care (01) ==
LOC: ED 22:29 → AC 22:32
PROVIDERS: Family Medicine; Internal Medicine; Admitting Provider Nurse Practitioner Adult Health; Emergency Provider Emergency Medicine; Family Provider Internal Medicine; PCP Internal Medicine; Visit Provider Nurse Practitioner Adult Health
DX: R41.82 Altered mental status, unspecified (principal)
CPT/HCPCS: 36415; 36591; 70450; 70553; 71045; 74018; 80048; 80053; 80305; 80320; 80329; 81001; 81003; 82607; 83605; 83735; 84145; 84146; 84443; 84484; 85025; 85610; 85730; 92526; 92610; 93971; 94762; 97116; 97162; 97165; 97530; 97535; 99284; G0378; A9579; G0480; J1650; J1940

== ENCOUNTER 2019-01-22 18:14 | Inpatient (IN) | payer MEDICARE, SELFPAY ==
[2019-01-18 01:09] VITALS: BMI 25.4
[2019-01-22] VITALS (7 sets, daily range): BP systolic 93–122; BP diastolic 53–74; PULSE 73–89; RESP 13–18; TEMP 36.9–37.1; O2SAT 97–100; BMI 25.0
[2019-01-22 19:11] LABS: Add Manual Diff / Slide Review NO; Basophils Absolute Auto 0 /uL (0-100); Basophils Percent Auto 0.3 % (0-2); Eosinophils Absolute Auto 0 /uL (0-450); Eosinophils Percent Auto 0.3 % (2-4); Hematocrit 38.1 % (41-53); Hemoglobin 12.6 g/dL (13.5-17.5); Lymphocytes Absolute Auto 1000 /uL (1100-4500); Lymphocytes Percent Auto 10.3 % (25-40); Mean Corpuscular Volume 90.9 fL (80-100); Monocytes Absolute Auto 1100 /uL (0-900); Monocytes Percent Auto 11.5 % (3-14); Neutrophils Absolute Auto 7800 /uL (1500-7000); Neutrophils Percent Auto 77.6 % (50-75); Platelet Count 145 X10^3/uL (150-400); Red Blood Cell Count 4.19 X10^6/uL (4.5-5.9); Red Cell Distribution Width 14.1 % (11.6-14.8)
--- NOTE | 2019-01-22 19:21 | DI.CT.S_ITS ---
PROCEDURE: CT HEAD/BRAIN WO CON INDICATIONS: mental status change TECHNIQUE: Noncontrast 4.5 mm thick angled axial sections acquired from the foramen magnum to the vertex, with coronal and sagittal reformats. For radiation dose reduction, the following was used: automated exposure control, adjustment of mA and/or kV according to patient size. COMPARISON: None. FINDINGS: Image quality: Excellent. CSF spaces: Basal cisterns are patent. No extra-axial fluid collections. The ventricles are symmetric in size and shape. Brain: No intracranial bleeds or masses. There is cerebral volume loss for age, with resultant ventricular and sulcal prominence. There are periventricular and deep white matter chronic small vessel ischemic changes. There is intracranial internal carotid artery atherosclerosis. Skull and face: Calvarium and visualized facial bones appear intact, without suspicious lesions. Sinuses: Visualized sinuses and mastoids are clear. IMPRESSION: CT head without acute intracranial abnormalities. Stable age related senescent changes and sequela of chronic small vessel ischemic disease. Dictated by: Efrem Stokes M.D. on 01/22/2019 at 20:12 Approved by: Efrem Stokes M.D. on 01/22/2019 at 20:14
[2019-01-22 19:22] LABS: Alanine Aminotransferase 38 IU/L (21-72); Albumin 3.2 g/dL (3.5-5.0); Albumin Globulin Ratio 1.1 (1.0-2.8); Alkaline Phosphatase 87 U/L (38-126); Aspartate Aminotransferase 40 IU/L (17-59); BUN Creatinine Ratio 32.2 (6-22); Bilirubin Total 0.8 mg/dL (0.2-1.3); Blood Urea Nitrogen 29 mg/dL (9-20); Calcium 8.4 mg/dL (8.4-10.2); Carbon Dioxide 25 mmol/L (22-32); Chloride 104 mmol/L (98-107); Estimated Glomerular Filt Rate > 60.0 mL/min (>60); Globulin 2.9 g/dL (1.7-4.1); Glucose 110 mg/dL (80-110); HEMOLYSIS 19 (0-50); Potassium 3.5 mmol/L (3.4-5.1); Sodium 137 mmol/L (137-145); Total Protein 6.1 g/dL (6.3-8.2)
[2019-01-22 19:38] LABS: Creatine Kinase 145 U/L (55-170)
[2019-01-22] MEDS: SODIUM CHLORIDE 0.9% 1,000 ML 1000 ML IV (19:40)
[2019-01-22 19:43] LABS: Fractionated Inspired Oxygen 21; HCO3 ABG 23 mmol/L (22-26); Oxygen Saturation ABG 97 % (95-100); PCO2 ABG 33.5 mmHg (35-45); PO2 ABG 88 mmHg (80-100); TCO2 ABG 24 mmol/L (21-31); pH ABG 7.44 (7.35-7.45)
[2019-01-22 19:44] LABS: Appearance Urine UA SL CLOUDY; Bilirubin Urine UA NEGATIVE (NEGATIVE); Color Urine UA YELLOW; Glucose Urine UA NEGATIVE (Negative); Ketones Urine UA NEGATIVE (NEGATIVE); Leukocyte Esterase Urine UA NEGATIVE (NEGATIVE); Nitrite Urine UA NEGATIVE (Negative); Occult Blood Urine UA 2+ (Negative); Protein Urine UA TRACE (Negative); Specific Gravity Urine UA 1.025 (1.000-1.035); Urobilinogen Urine UA 0.2 E.U./dL (0.2)
[2019-01-22 19:51] LABS: Troponin I < 0.012 ng/mL (0.01-0.034)
[2019-01-22 19:53] LABS: Bacteria Urine Many (>30); Culture Indicated Urine Specimen Cultured; RBC Urine 0-1/HPF (0-5/HPF); Squamous Epithelial Cell Urine None Seen; WBC Urine 5-10/HPF (0-5/HPF)
[2019-01-22 19:54] LABS: CKMB % Relative Index 1.4 % (1.5-5.0); Creatine Kinase MB 2.02 ng/mL (<2.37)
[2019-01-22 19:57] LABS: Procalcitonin 0.27 ng/mL (<0.5)
--- NOTE | 2019-01-22 20:38 | ED_ITS ---
HPI - Weakness General Chief complaint: Weakness Stated complaint: Lethargic Time Seen by Provider: 01/22/19 18:40 Source: EMS and RN notes reviewed Mode of arrival: EMS Limitations: altered mental status History of Present Illness HPI Narrative: 78-year-old male with history of hypertension and prostate cancer status post prostatectomy whom was just discharged from the hospital today for a nonspecific metabolic encephalopathy. He had been admitted for the past few days and had no specific etiology uncovered as the cause. There is extensive discussion with patient and family including Care Management today upon discharge and all questions had been answered to their apparent satisfaction. Patient returns because he is not responding to verbal or painful stimuli. There are no obvious focal neurologic findings but patient is not at his baseline and they are very comfortable with him being there. Earlier today the patient was oriented only to his name which is at his apparent baseline hence their decision to discharge patient. He had had head CT and MRI that were free of any new lesions. Prior to his recent admission on January 17 the patient was known to be ambulatory and conversant and he was sent here due to a change in this mental status. MD Complaint: generalized weakness and lack of energy Onset (ago): hour(s) Duration: constant Location: generalized Relieving factors: none Exacerbating factors: none Related Data Home Medications Medication Instructions Recorded Confirmed aspirin 81 mg PO DAILY 12/15/18 01/22/19 cholecalciferol (vitamin D3) 1,000 unit PO DAILY 12/15/18 01/22/19 [Vitamin D3] cyanocobalamin (vitamin B-12) 500 mcg PO DAILY 12/15/18 01/22/19 [Vitamin B-12] Previous Rx's Medication Instructions Recorded ketoconazole See Rx Instructions .ROUTE 01/02/19 .COMPLEX #30 gram zinc oxide See Rx Instructions .ROUTE 01/02/19 .COMPLEX #99 gram Allergies Allergy/AdvReac Type Severity Reaction Status Date / Time hydromorphone [From Dilaudid] Allergy Verified 01/22/19 18:19 Review of Systems Review of Systems ROS Unobtainable: Unobtainable due to mental status/LOC Neurologic Reports confusion Psychiatric Reports confusion PFSH Medical History Candidiasis of scrotum (Acute) HTN (hypertension) (Chronic) History of prostate cancer (Chronic) Incontinence (Chronic) Surgical History History of prostatectomy (Resolved) History of squamous cell carcinoma excision (Resolved) Family History Other Family history non-contributory Social History household members: other Smoking Status: Never smoker alcohol intake: current Family History Other Family history non-contributory Social History household members: other Smoking Status: Never smoker alcohol intake: current Exam Narrative Exam Narrative: GENERAL: 78-year-old male appears stated age, he is in no obvious distress resting with eyes closed. Is not responding to verbal or some noxious stimuli HEAD: Atraumatic. Normocephalic. No temporal or scalp tenderness. EYES: Pupils equal round and reactive. Extraocular motions intact. No scleral icterus. No injection or drainage. ENT: Nose without bleeding, purulent drainage or septal hematoma. Throat without erythema, tonsillar hypertrophy or exudate. Uvula midline. Airway patent. NECK: Trachea midline. No JVD or lymphadenopathy. Supple, nontender, no meningeal signs. CARDIOVASCULAR: Regular rate and rhythm without murmurs, gallops, or rubs. RESPIRATORY: Clear to auscultation. Breath sounds equal bilaterally. No wheezes, rales, or rhonchi. GASTROINTESTINAL: Abdomen soft, non-tender, nondistended. No hepato- splenomegaly, or palpable masses. No guarding. EXTREMITIES: No clubbing, cyanosis, or edema. No joint tenderness, effusion, or edema noted. BACK: Nontender without deformity or crepitance. No flank tenderness. NEURO: AOx3. SKIN: No rash or erythema. Initial Vital Signs Initial Vital Signs: Vital Signs Temperature 98.8 F 01/22/19 18:19 Pulse Rate 89 01/22/19 18:19 Respiratory Rate 15 01/22/19 18:19 Blood Pressure 106/63 01/22/19 18:19 Pulse Oximetry 97 01/22/19 18:19 Course Orders Ordered: ED Orders 01/22/19 18:58 Complete Blood Count AUTO DIFF Stat Comprehensive Metabolic Panel Stat Procalcitonin Stat Troponin & CK Cardiac Panel Stat 01/22/19 19:18 EKG-12 Lead Stat 01/22/19 19:21 CT head/brain wo con Stat 01/22/19 19:25 Arterial Blood Gas Stat 01/22/19 19:34 Urinalysis and Microscopic Stat Urine Culture Stat Urine Drug Screen, Rapid Stat 01/22/19 23:49 Education, smoking cessation ONGOING 01/23/19 00:04 Consult to Dietitian, Adult Routine 01/23/19 00:21 Consult to Occupational Therapy Evaluate & Treat Consult to Physical Therapy Evaluate & Treat Aspirin (Aspirin Ec) 81 mg PO DAILY MELBA Cyanocobalamin (Vitamin B-12) 500 mcg PO DAILY MELBA Ceftriaxone Sodium/Dextrose (Rocephin) 1 gm in 50 mls @ 100 mls/hr IV Q24H MELBA Ketoconazole (Nizoral 2% Cream (15 Gm)) 0 applic TOP DAILY MELBA Stop: 02/05/19 09:01 Vitamin D (Vitamin D3) 1,000 unit PO DAILY MELBA Zinc Oxide (Desitin) 0 applic TOP BID MELBA Stop: 02/06/19 08:59 Discontinued Medications Sodium Chloride (Normal Saline 0.9%) 1,000 mls @ 1,000 mls/hr IV BOLUS ONE Stop: 01/22/19 20:16 Last Infusion: 01/22/19 21:00 Dose: 0 mls/hr Admin: 01/22/19 19:40 Dose: 1,000 mls/hr Ceftriaxone Sodium/Dextrose (Rocephin) 1 gm in 50 mls @ 100 mls/hr IV NOW ONE Stop: 01/22/19 20:59 Last Infusion: 01/22/19 21:31 Dose: 0 mls/hr Admin: 01/22/19 21:00 Dose: 100 mls/hr Reevaluation(s) Reevaluation #1: patient is clearly not at baseline per nursing staff and at the bedside. There is no obvious reversible cause noted on exam or diagnostics. He comes to us from assisted living and is is unable to go back as he requires much more persistence than they are able to provide Consultations Consultation #1: Dr. Benavides is happy to accept on her service Vital Signs - 8 hr 01/22/19 18:19 01/22/19 18:30 01/22/19 19:00 Temperature 98.8 F Pulse Rate 89 80 79 Respiratory Rate 15 15 15 Blood Pressure 106/63 Blood Pressure [Left Arm] 93/53 L 101/60 Pulse Oximetry 97 01/22/19 19:30 01/22/19 20:00 01/22/19 21:01 Temperature Pulse Rate 81 77 77 Respiratory Rate 14 14 13 Blood Pressure Blood Pressure [Left Arm] 116/67 118/65 122/70 Pulse Oximetry 100 01/22/19 22:48 01/23/19 00:05 Temperature 98.5 F Pulse Rate 73 Respiratory Rate 18 Blood Pressure 118/74 Blood Pressure [Left Arm] Pulse Oximetry 98 99 MDM - Weakness Lab Data Result diagrams: 01/22/19 18:58 01/22/19 18:58 Lab Results 01/22/19 01/22/19 01/22/19 Range/Units 18:58 18:58 18:58 WBC 10.0 (4.5-11.0) X10^3/uL RBC 4.19 L (4.5-5.9) X10^6/uL Hgb 12.6 L (13.5-17.5) g/dL Hct 38.1 L (41-53) % MCV 90.9 (80-100) fL MCH 30.0 (26-34) PG MCHC 33.0 (30-36) % RDW 14.1 (11.6-14.8) % Plt Count 145 L (150-400) X10^3/uL Neut % (Auto) 77.6 H (50-75) % Lymph % (Auto) 10.3 L (25-40) % [place] % (Auto) 11.5 (3-14) % Eos % (Auto) 0.3 L (2-4) % Baso % (Auto) 0.3 (0-2) % Neut # (Auto) 7800 H (9504-5712) /uL Lymph # (Auto) 1000 L (5680-6204) /uL [place] # (Auto) 1100 H (0-900) /uL Eos # (Auto) 0 (0-450) /uL Baso # (Auto) 0 (0-100) /uL ABG pH (7.35-7.45) ABG pCO2 (35-45) mmHg ABG pO2 (80-100) mmHg ABG HCO3 (22-26) mmol/L ABG Total CO2 (21-31) mmol/L ABG O2 Saturation (95-100) % ABG Base Excess (-2-2) mmol/L FiO2 Sodium 137 (137-145) mmol/L Potassium 3.5 (3.4-5.1) mmol/L Chloride 104 (98-107) mmol/L Carbon Dioxide 25 (22-32) mmol/L BUN 29 H (9-20) mg/dL Creatinine 0.90 (0.66-1.25) mg/dL Estimated GFR > 60.0 (>60) mL/min BUN/Creatinine Ratio 32.2 H (6-22) Glucose 110 (80-110) mg/dL Calcium 8.4 (8.4-10.2) mg/dL Total Bilirubin 0.8 (0.2-1.3) mg/dL AST 40 (17-59) IU/L ALT 38 (21-72) IU/L Alkaline Phosphatase 87 (38-126) U/L Total Creatine Kinase (55-170) U/L CK-MB (CK-2) (<2.37) ng/mL CK-MB (CK-2) Rel Index (1.5-5.0) % Troponin I (0.01-0.034) ng/mL Total Protein 6.1 L (6.3-8.2) g/dL Albumin 3.2 L (3.5-5.0) g/dL Globulin 2.9 (1.7-4.1) g/dL Albumin/Globulin Ratio 1.1 (1.0-2.8) Procalcitonin 0.27 (<0.5) ng/mL Urine Color Urine Appearance Urine pH (4.5-8.0) Ur Specific [place] (1.000-1.035) Urine Protein (Negative) Urine Glucose (UA) (Negative) g/dL Urine Ketones (NEGATIVE) Urine Occult Blood (Negative) Urine Nitrate (Negative) Urine Bilirubin (NEGATIVE) Urine Urobilinogen (0.2) E.U./dL Ur Leukocyte Esterase (NEGATIVE) Urine RBC (0-5/HPF) Urine WBC (0-5/HPF) Ur Squamous Epith Cells Urine Bacteria (None) Ur Culture Indicated? Urine Opiates Screen (Negative) Ur Oxycodone Screen (Negative) Urine Methadone Screen (Negative) Ur Barbiturates Screen (Negative) U Tricyclic Antidepress (Negative) Ur Phencyclidine Scrn (Negative) Ur Amphetamines Screen (Negative) U Methamphetamines Scrn (Negative) Ur MDMA Scrn (Ecstasy) (Negative) U Benzodiazepines Scrn (Negative) Urine Cocaine Screen (Negative) U Marijuana (THC) Screen (Negative) 01/22/19 01/22/19 01/22/19 Range/Units 18:58 19:25 19:34 WBC (4.5-11.0) X10^3/uL RBC (4.5-5.9) X10^6/uL Hgb (13.5-17.5) g/dL Hct (41-53) % MCV (80-100) fL MCH (26-34) PG MCHC (30-36) % RDW (11.6-14.8) % Plt Count (150-400) X10^3/uL Neut % (Auto) (50-75) % Lymph % (Auto) (25-40) % [place] % (Auto) (3-14) % Eos % (Auto) (2-4) % Baso % (Auto) (0-2) % Neut # (Auto) (5104-8138) /uL Lymph # (Auto) (6808-4314) /uL [place] # (Auto) (0-900) /uL Eos # (Auto) (0-450) /uL Baso # (Auto) (0-100) /uL ABG pH 7.44 (7.35-7.45) ABG pCO2 33.5 L (35-45) mmHg ABG pO2 88 (80-100) mmHg ABG HCO3 23 (22-26) mmol/L ABG Total CO2 24 (21-31) mmol/L ABG O2 Saturation 97 (95-100) % ABG Base Excess -1.0 (-2-2) mmol/L FiO2 21 Sodium (137-145) mmol/L Potassium (3.4-5.1) mmol/L Chloride (98-107) mmol/L Carbon Dioxide (22-32) mmol/L BUN (9-20) mg/dL Creatinine (0.66-1.25) mg/dL Estimated GFR (>60) mL/min BUN/Creatinine Ratio (6-22) Glucose (80-110) mg/dL Calcium (8.4-10.2) mg/dL Total Bilirubin (0.2-1.3) mg/dL AST (17-59) IU/L ALT (21-72) IU/L Alkaline Phosphatase (38-126) U/L Total Creatine Kinase 145 (55-170) U/L CK-MB (CK-2) 2.02 (<2.37) ng/mL CK-MB (CK-2) Rel Index 1.4 L (1.5-5.0) % Troponin I < 0.012 (0.01-0.034) ng/mL Total Protein (6.3-8.2) g/dL Albumin (3.5-5.0) g/dL Globulin (1.7-4.1) g/dL Albumin/Globulin Ratio (1.0-2.8) Procalcitonin (<0.5) ng/mL Urine Color Yellow Urine Appearance Sl cloudy Urine pH 5.0 (4.5-8.0) Ur Specific [place] 1.025 (1.000-1.035) Urine Protein Trace H (Negative) Urine Glucose (UA) Negative (Negative) g/dL Urine Ketones Negative (NEGATIVE) Urine Occult Blood 2+ H (Negative) Urine Nitrate Negative (Negative) Urine Bilirubin Negative (NEGATIVE) Urine Urobilinogen 0.2 (0.2) E.U./dL Ur Leukocyte Esterase Negative (NEGATIVE) Urine RBC 0-1/hpf (0-5/HPF) Urine WBC 5-10/hpf H (0-5/HPF) Ur Squamous Epith Cells None seen Urine Bacteria Many (>30) H (None) Ur Culture Indicated? Specimen cultured Urine Opiates Screen (Negative) Ur Oxycodone Screen (Negative) Urine Methadone Screen (Negative) Ur Barbiturates Screen (Negative) U Tricyclic Antidepress (Negative) Ur Phencyclidine Scrn (Negative) Ur Amphetamines Screen (Negative) U Methamphetamines Scrn (Negative) Ur MDMA Scrn (Ecstasy) (Negative) U Benzodiazepines Scrn (Negative) Urine Cocaine Screen (Negative) U Marijuana (THC) Screen (Negative) 01/22/19 Range/Units 19:34 WBC (4.5-11.0) X10^3/uL RBC (4.5-5.9) X10^6/uL Hgb (13.5-17.5) g/dL Hct (41-53) % MCV (80-100) fL MCH (26-34) PG MCHC (30-36) % RDW (11.6-14.8) % Plt Count (150-400) X10^3/uL Neut % (Auto) (50-75) % Lymph % (Auto) (25-40) % [place] % (Auto) (3-14) % Eos % (Auto) (2-4) % Baso % (Auto) (0-2) % Neut # (Auto) (3208-9739) /uL Lymph # (Auto) (0479-9747) /uL [place] # (Auto) (0-900) /uL Eos # (Auto) (0-450) /uL Baso # (Auto) (0-100) /uL ABG pH (7.35-7.45) ABG pCO2 (35-45) mmHg ABG pO2 (80-100) mmHg ABG HCO3 (22-26) mmol/L ABG Total CO2 (21-31) mmol/L ABG O2 Saturation (95-100) % ABG Base Excess (-2-2) mmol/L FiO2 Sodium (137-145) mmol/L Potassium (3.4-5.1) mmol/L Chloride (98-107) mmol/L Carbon Dioxide (22-32) mmol/L BUN (9-20) mg/dL Creatinine (0.66-1.25) mg/dL Estimated GFR (>60) mL/min BUN/Creatinine Ratio (6-22) Glucose (80-110) mg/dL Calcium (8.4-10.2) mg/dL Total Bilirubin (0.2-1.3) mg/dL AST (17-59) IU/L ALT (21-72) IU/L Alkaline Phosphatase (38-126) U/L Total Creatine Kinase (55-170) U/L CK-MB (CK-2) (<2.37) ng/mL CK-MB (CK-2) Rel Index (1.5-5.0) % Troponin I (0.01-0.034) ng/mL Total Protein (6.3-8.2) g/dL Albumin (3.5-5.0) g/dL Globulin (1.7-4.1) g/dL Albumin/Globulin Ratio (1.0-2.8) Procalcitonin (<0.5) ng/mL Urine Color Urine Appearance Urine pH (4.5-8.0) Ur Specific [place] (1.000-1.035) Urine Protein (Negative) Urine Glucose (UA) (Negative) g/dL Urine Ketones (NEGATIVE) Urine Occult Blood (Negative) Urine Nitrate (Negative) Urine Bilirubin (NEGATIVE) Urine Urobilinogen (0.2) E.U./dL Ur Leukocyte Esterase (NEGATIVE) Urine RBC (0-5/HPF) Urine WBC (0-5/HPF) Ur Squamous Epith Cells Urine Bacteria (None) Ur Culture Indicated? Urine Opiates Screen Negative (Negative) Ur Oxycodone Screen Negative (Negative) Urine Methadone Screen Negative (Negative) Ur Barbiturates Screen Negative (Negative) U Tricyclic Antidepress Negative (Negative) Ur Phencyclidine Scrn Negative (Negative) Ur Amphetamines Screen Negative (Negative) U Methamphetamines Scrn Negative (Negative) Ur MDMA Scrn (Ecstasy) Negative (Negative) U Benzodiazepines Scrn Negative (Negative) Urine Cocaine Screen Negative (Negative) U Marijuana (THC) Screen Negative (Negative) Discharge Plan Departure Patient Disposition: Admitted As Inpatient Clinical Impression: Acute metabolic encephalopathy, Acute UTI Altered mental status Qualifiers: Altered mental status type: unspecified Qualified Code(s): R41.82 - Altered mental status, unspecified Discharge Date/Time: 01/22/19 22:32 Interventions: ED Discharge Assessment Last Done: 01/22/19 22:31 Admit Date/Time: 01/22/19 21:24 Admit Provider: Autumn Benavides
[2019-01-22] MEDS: CEFTRIAXONE 1 GM/50 ML FROZ.PIGGY IV (21:00)
[2019-01-22 21:03] LABS: Urine Amphetamines Negative (Negative); Urine Barbiturates Negative (Negative); Urine Benzodiazepines Negative (Negative); Urine Cocaine Negative (Negative); Urine MDMA Negative (Negative); Urine Methadone Negative (Negative); Urine Methamphetamines Negative (Negative); Urine Morphine/Opi cutoff 2000 Negative (Negative); Urine Oxycodone Negative (Negative); Urine Phencyclidine Negative (Negative); Urine Tetrahydrocannabinol Negative (Negative); Urine Tricyclic Antidepressant Negative (Negative)
--- NOTE | 2019-01-22 23:52 | P.HP_ITS ---
History of Present Illness Date Patient Seen: 01/22/19 Time Patient Seen: 23:52 Chief complaint: Lethargic Narrative: 78-year-old patient of Dr. Burroughs who was recently hospitalized at [facility] from January 18, 2019 to January 22, 2019 for acute encephalopathy. The cause of his encephalopathy was unclear. His head CT was negative. No evidence of infection was found. MRI of the brain showed chronic microvascular ischemic changes. There was no acute stroke. He was discharged b ack to the assisted living earlier this afternoon. He was complaining of fatigue and fell asleep as soon as he returned back to the assisted living. The assisted living staff was not able to wake him up at dinner time. He was noticed to be unresponsive. He was subsequently brought back to the emergency room. Noncontrast head CT did not reveal acute intracranial bleed. Urinalysis showed 5-10 WBCs. He received 1 g of Rocephin for treating possible urinary tract infection. He was admitted to the medicine floor. Currently patient is alert and orientated. He seemed to be back to his baseline. His said he was not able to sleep well last night when the nursing staff was trying to help him have a bowel movement. Patient History Medical History Candidiasis of scrotum (Acute) HTN (hypertension) (Chronic) History of prostate cancer (Chronic) Incontinence (Chronic) Surgical History History of prostatectomy (Resolved) History of squamous cell carcinoma excision (Resolved) Family History Other Family history non-contributory Social History household members: other Smoking Status: Never smoker alcohol intake: current Family & Social History Family History Other Family history non-contributory Social History: household members other Prior Living Arrangements Assisted Living Safety & Behavioral: Feels Safe in Current Yes Environment Been Physically Hurt or No Threatened By a Person Suicidal Ideation Description None Suicide Plan Description No Plan Tobacco & Substance use: Smoking Status Never smoker alcohol intake current alcohol intake frequency a few times a week Substance Use Type does not use Meds Home Medications Medication Instructions Recorded Confirmed Type aspirin 81 mg PO DAILY 12/15/18 01/22/19 History cholecalciferol (vitamin D3) 1,000 unit PO DAILY 12/15/18 01/22/19 History [Vitamin D3] cyanocobalamin (vitamin B-12) 500 mcg PO DAILY 12/15/18 01/22/19 History [Vitamin B-12] ketoconazole See Rx Instructions .ROUTE 01/02/19 01/22/19 Rx .COMPLEX #30 gram zinc oxide See Rx Instructions .ROUTE 01/02/19 01/22/19 Rx .COMPLEX #99 gram Allergies Allergy/AdvReac Type Severity Reaction Status Date / Time hydromorphone [From Dilaudid] Allergy Verified 01/22/19 18:19 Review of Systems Constitutional Comments: Denies fevers or chills Cardiovascular Comments: Denies chest pain or palpitation Respiratory Comments: Denies cough or shortness of breath Gastrointestinal Comments: Denies abdominal pain Genitourinary Comments: Denies urinary frequency or urgency Neurologic Neurologic: Reports as per HPI Exam Vital Signs (past 8 hours): - 01/22/19 18:19 01/22/19 18:30 01/22/19 19:00 Temperature 98.8 F Pulse Rate 89 80 79 Respiratory Rate 15 15 15 Blood Pressure 106/63 Blood Pressure [Left Arm] 93/53 L 101/60 Pulse Oximetry 97 01/22/19 19:30 01/22/19 20:00 01/22/19 21:01 Temperature Pulse Rate 81 77 77 Respiratory Rate 14 14 13 Blood Pressure Blood Pressure [Left Arm] 116/67 118/65 122/70 Pulse Oximetry 100 01/22/19 22:48 Temperature 98.5 F Pulse Rate 73 Respiratory Rate 18 Blood Pressure 118/74 Blood Pressure [Left Arm] Pulse Oximetry 98 Oxygen Delivery Method Room Air Narrative Exam Narrative: GENERAL: Well-appearing, well-nourished and in no acute distress. HEENT: Head normocephalic, atraumatic. Eyes pupils equal round NECK: Supple, no JVD, CHEST: Breath sounds equal bilaterally, no wheezes rales or rhonchi. CARDIAC: Regular rate and rhythm without murmurs, rubs or gallops. ABDOMEN: Soft, nontender. Normoactive bowel sounds all 4 quadrants. No guarding or rebound. EXTREMITIES: Normal range of motion, 2+ edema bilateral ankles NEUROLOGICAL: Alert, sitting in the bed comfortably. He knows the year is 2018 and the date is January 23. He thought he was in [place]. He moves all his extremities. SKIN: Warm, dry, no petechiae, no rashes or lesions. Objective Labs Result Diagrams: 01/22/19 18:58 01/22/19 18:58 Labs: Laboratory Results - last 24 hr 01/22/19 01/22/19 01/22/19 18:58 18:58 18:58 WBC 10.0 RBC 4.19 L Hgb 12.6 L Hct 38.1 L MCV 90.9 MCH 30.0 MCHC 33.0 RDW 14.1 Plt Count 145 L Neut % (Auto) 77.6 H Lymph % (Auto) 10.3 L [place] % (Auto) 11.5 Eos % (Auto) 0.3 L Baso % (Auto) 0.3 Neut # (Auto) 7800 H Lymph # (Auto) 1000 L [place] # (Auto) 1100 H Eos # (Auto) 0 Baso # (Auto) 0 ABG pH ABG pCO2 ABG pO2 ABG HCO3 ABG Total CO2 ABG O2 Saturation ABG Base Excess FiO2 Sodium 137 Potassium 3.5 Chloride 104 Carbon Dioxide 25 BUN 29 H Creatinine 0.90 Estimated GFR > 60.0 BUN/Creatinine Ratio 32.2 H Glucose 110 Calcium 8.4 Total Bilirubin 0.8 AST 40 ALT 38 Alkaline Phosphatase 87 Total Creatine Kinase CK-MB (CK-2) CK-MB (CK-2) Rel Index Troponin I Total Protein 6.1 L Albumin 3.2 L Globulin 2.9 Albumin/Globulin Ratio 1.1 Procalcitonin 0.27 Urine Color Urine Appearance Urine pH Ur Specific [place] Urine Protein Urine Glucose (UA) Urine Ketones Urine Occult Blood Urine Nitrate Urine Bilirubin Urine Urobilinogen Ur Leukocyte Esterase Urine RBC Urine WBC Ur Squamous Epith Cells Urine Bacteria Ur Culture Indicated? Urine Opiates Screen Ur Oxycodone Screen Urine Methadone Screen Ur Barbiturates Screen U Tricyclic Antidepress Ur Phencyclidine Scrn Ur Amphetamines Screen U Methamphetamines Scrn Ur MDMA Scrn (Ecstasy) U Benzodiazepines Scrn Urine Cocaine Screen U Marijuana (THC) Screen 01/22/19 01/22/19 01/22/19 18:58 19:25 19:34 WBC RBC Hgb Hct MCV MCH MCHC RDW Plt Count Neut % (Auto) Lymph % (Auto) [place] % (Auto) Eos % (Auto) Baso % (Auto) Neut # (Auto) Lymph # (Auto) [place] # (Auto) Eos # (Auto) Baso # (Auto) ABG pH 7.44 ABG pCO2 33.5 L ABG pO2 88 ABG HCO3 23 ABG Total CO2 24 ABG O2 Saturation 97 ABG Base Excess -1.0 FiO2 21 Sodium Potassium Chloride Carbon Dioxide BUN Creatinine Estimated GFR BUN/Creatinine Ratio Glucose Calcium Total Bilirubin AST ALT Alkaline Phosphatase Total Creatine Kinase 145 CK-MB (CK-2) 2.02 CK-MB (CK-2) Rel Index 1.4 L Troponin I < 0.012 Total Protein Albumin Globulin Albumin/Globulin Ratio Procalcitonin Urine Color Yellow Urine Appearance Sl cloudy Urine pH 5.0 Ur Specific [place] 1.025 Urine Protein Trace H Urine Glucose (UA) Negative Urine Ketones Negative Urine Occult Blood 2+ H Urine Nitrate Negative Urine Bilirubin Negative Urine Urobilinogen 0.2 Ur Leukocyte Esterase Negative Urine RBC 0-1/hpf Urine WBC 5-10/hpf H Ur Squamous Epith Cells None seen Urine Bacteria Many (>30) H Ur Culture Indicated? Specimen cultured Urine Opiates Screen Ur Oxycodone Screen Urine Methadone Screen Ur Barbiturates Screen U Tricyclic Antidepress Ur Phencyclidine Scrn Ur Amphetamines Screen U Methamphetamines Scrn Ur MDMA Scrn (Ecstasy) U Benzodiazepines Scrn Urine Cocaine Screen U Marijuana (THC) Screen 01/22/19 19:34 WBC RBC Hgb Hct MCV MCH MCHC RDW Plt Count Neut % (Auto) Lymph % (Auto) [place] % (Auto) Eos % (Auto) Baso % (Auto) Neut # (Auto) Lymph # (Auto) [place] # (Auto) Eos # (Auto) Baso # (Auto) ABG pH ABG pCO2 ABG pO2 ABG HCO3 ABG Total CO2 ABG O2 Saturation ABG Base Excess FiO2 Sodium Potassium Chloride Carbon Dioxide BUN Creatinine Estimated GFR BUN/Creatinine Ratio Glucose Calcium Total Bilirubin AST ALT Alkaline Phosphatase Total Creatine Kinase CK-MB (CK-2) CK-MB (CK-2) Rel Index Troponin I Total Protein Albumin Globulin Albumin/Globulin Ratio Procalcitonin Urine Color Urine Appearance Urine pH Ur Specific [place] Urine Protein Urine Glucose (UA) Urine Ketones Urine Occult Blood Urine Nitrate Urine Bilirubin Urine Urobilinogen Ur Leukocyte Esterase Urine RBC Urine WBC Ur Squamous Epith Cells Urine Bacteria Ur Culture Indicated? Urine Opiates Screen Negative Ur Oxycodone Screen Negative Urine Methadone Screen Negative Ur Barbiturates Screen Negative U Tricyclic Antidepress Negative Ur Phencyclidine Scrn Negative Ur Amphetamines Screen Negative U Methamphetamines Scrn Negative Ur MDMA Scrn (Ecstasy) Negative U Benzodiazepines Scrn Negative Urine Cocaine Screen Negative U Marijuana (THC) Screen Negative Assessment & Plan Assessment & Plan narrative: 1. Possible urinary tract infection: Continue ceftriaxone IV. Follow urine culture result. 2. acute encephalopathy: Possibly secondary to urinary tract infection and sleep deprivation. Patient seemed to be back to his baseline mental status later this evening. We will continue monitor Quality VTE Deep Vein Thrombosis/Pulmonary Embolism Present on Admission: No
[2019-01-23] VITALS (8 sets, daily range): BP systolic 90–117; BP diastolic 52–66; PULSE 66–81; RESP 16–19; TEMP 36.4–37.1; O2SAT 95–100; BMI 23.6
--- NOTE | 2019-01-23 00:07 | PC.NURSE ---
Addendum entered by Itzel Montenegro R.N. 01/23/19 06:19: Slept most of night. Incontinent of medium liquid brown stool. Is able to assist in turning. Original Note: Patient is oriented to self, birthday, age, month, year and place. Breath sounds diminished but CTA with RA sat of 99%. HRR. Denies nausea. BT present and abdomen is soft. Indwelling catheter is patent. Scrotum slightly pink. 3+ edema in right LE toe to groin ad 2+ edema in left LE toe to knee. 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 Able to turn himself when asked to do so. Lower extremity skin is dry. Color is pale. Fall risk score is high and bed alarm is activated. /patient both report no falls in past 3 months. States 1/10 discomfort in right LE but declines need for pain med. spending night.
--- NOTE | 2019-01-23 09:00 | PT.IPTN ---
Physical Therapy Treatment Note M3 PT-IP Subjective Start: 01/23/19 08:12 Freq: NEEDED Status: Active Protocol: Document 01/23/19 09:00 RS (Rec: 01/23/19 10:06 RS [id number]) Subjective Physical Therapy Visit Type Type Administrative Note Notes Pt is currently sleeping and apparently has not been sleeping well the last few nights. Will hold PT eval until pt is awake.
[2019-01-23] MEDS: CHOLECALCIFEROL (VITAMIN D3) 1,000 UNIT TABLET 1000 UNIT PO (09:27)
[2019-01-23] MEDS: CYANOCOBALAMIN (VITAMIN B-12) 500 MCG TABLET PO (09:27)
[2019-01-23] MEDS: ASPIRIN EC 81 MG TABLET PO (09:27)
[2019-01-23] MEDS: KETOCONAZOLE 2% CREAM 15 GM TOP (09:56)
[2019-01-23] MEDS: ZINC OXIDE OINT 60 GM TOP ×2 (09:56→21:40)
[2019-01-23] MEDS: AMPICILLIN/SULBACTAM 1.5 GM 1.5 GM in SODIUM CHLORIDE 0.9% 100 ML IV ×3 (10:01→21:39)
--- NOTE | 2019-01-23 12:09 | CM.DANOTE ---
DCP/Assessment: Reviewed chart. Patient is a 78yr old male that admitted from [facility] after lethargic episode. Patient discharged from [facility] on 01[facility] after 6days of hospitalization for acute encephalopathy under OBS. Met with patient and spouse this AM. Spouse/Berna reports that patient moved into [facility] on/about 01-12-19. Patient not there long before needing hospitalization. Prior to that patient was at [facility]. Spouse believes for approximately 3 months after hospitalization at [facility] in [place]. Patient alert and eating breakfast at time of visit. Patient rambling a bit about events that took place yesterday. Patient confirms to [employer] that he told everyone that he was not ready for discharge. Once he got to [facility] patient describes having event that made him unresponsive therefore, patient sent back to [facility]. Spouse confirms the above. Both patient and spouse report that they would like patient to return to [facility] when he is medically stable. PT/OT evaluations pending. If SNF needed and patient inpatient status, first SNF choice is [facility]. Referral provided to Yldia at [facility] to check on status, remaining medicare SNF days, and bed availability. P:Pending. Anticipate SNF vs. return [facility]. JERICHO Roach Discharge Planning/Care Management CM Discharge Assessment Start: 01/23/19 11:51 Freq: Status: Active Protocol: Document 01/23/19 11:51 KJS (Rec: 01/23/19 12:09 KJS [email or web address]) Discharge Planning Assessment Assigned Baggage Clerk JERICHO Roach Advance Directives? No History Provided By Patient Significant Other Medical Record Has Patient been admitted in last 30 Yes days? Comment Patient discharged from [facility] after being at [facility] under [facility] status. Prior Living Arrangements Assisted Living Household Members other Type of transporation used prior to Relies on Others admit Facility Name Admitted From: [facility] Willing to Return to Facility? Yes: pt needs care home vs assisted Independent with ADL's No: Therapy evaluation pending Is patient alert and oriented? Yes Caregiver for Another No Comment Patient and spouse prefer patient to return to [facility] when medically stable. If SNF needed [facility] is first choice. Medicare contracted SNF list provided to patient/spouse. Barriers to Discharge Yes Comment Unsure of patient's status at this time. In addition, patient has been at [facility] for unknown amount of time. Unclear on if he has used all SNF days for this calender year. Will ask [facility] to check on remaining SNF medicare days. Referrals Initiated Care Home Medicare Choice List Provided Yes SNF/HH Preference [facility] Contact Name/Phone Lydia alvarado# [phone] Has Agency SNF been contacted Yes Whiteboard Updated in Patient Room with Yes name and ext. # of Baggage Clerk Review Status In Process Next Review Type Continued Stay Review
--- NOTE | 2019-01-23 12:15 | PT.IIE ---
Surgical History (Last Reviewed 01/23/19 @ 00:13 by Autumn Benavides MD) History of prostatectomy (Resolved) History of squamous cell carcinoma excision (Resolved) Medical History (Last Reviewed 01/23/19 @ 00:13 by Autumn Benavides MD) Candidiasis of scrotum (Acute) HTN (hypertension) (Chronic) History of prostate cancer (Chronic) Incontinence (Chronic) Physical Therapy Inpatient Evaluation/Re-Eval M1 PT/OT-IP Prior Functional Status Start: 01/23/19 08:12 Freq: NEEDED Status: Active Protocol: Document 01/23/19 12:00 RS (Rec: 01/23/19 12:15 RS [email or web address]) Medical Review Prior Functional Status Medical History Reviewed Yes Diet/Fluid Consistency Regular Communication no known deficits when not ill Mobility and Gait could mobilize with a SPC, denies falls Activities of Daily Living and IADL's got help from with certain tasks Social History Household Members spouse other Living Arrangements Assisted Living Number of Floors (Floors) One Floor Home Equipment Straight Cane Employment Status Retired Additional Social History Comment just moved in to [facility], normally lives on [facility] M2 PT-IP Current Condition Start: 01/23/19 08:12 Freq: NEEDED Status: Active Protocol: Document 01/23/19 12:00 RS (Rec: 01/23/19 12:15 RS [email or web address]) Physical Therapy Current Condition Current Condition Evaluation Date 01/23/19 Treatment Diagnosis weakness, debility Onset Date a few days ago M3 PT-IP Subjective Start: 01/23/19 08:12 Freq: NEEDED Status: Active Protocol: Document 01/23/19 12:00 RS (Rec: 01/23/19 12:15 RS [email or web address]) Subjective Physical Therapy Visit Type Type Initial Evaluation Visit Start Time 10:55 Visit Stop Time 12:00 Total Visit Minutes 65 Physical Therapy Visit Comments Patient Comments Pt reports feeling more awake but a lot weaker Patient Goals get better before going home ( whether [facility] or [facility]) Therapy Pain Assessment Pain When Pain Assessed At Rest Pain Present Pain Present Denied Pain M4 PT-IP Mobility and Gait Start: 01/23/19 08:12 Freq: NEEDED Status: Active Protocol: Document 01/23/19 12:00 RS (Rec: 01/23/19 12:15 RS [email or web address]) PT-Bed Mobility Assessment Supine to Sit Supine to Sit Moderate Assistance Head of Bed Elevated Bedrails Scooting Scooting to Edge of Bed Minimal Assistance PT-Transfer Assessment Sit to and From Stand Sit to and from Stand Moderate Assistance 2 Person Assistance Equipment Transfer Assistive Device Front Wheeled Walker Transfers Transfer Destination Chair Bedside Commode Transfer Technique Stand Step Pivot Transfer Ability Level of Assist Moderate Assistance 2 Person Assistance Comments Mobility Comments Pt needs help moving both legs out of bed and then to move the RLE while scooting forward . 2p mod A to stand up and maintain initial balance (pt's upright balance proprioception is impaired), but once pt takes a few steps he is considerably more balanced but still needing 2p min A to complete the transfer . Pt gets hyperfocused on hand position when standing up and sitting back down and needs physical guidance on where to place hands for both transitions. Gait Assessment Comments Gait Comments not safe to test this session Stair Climbing Assessment Comments Stair Climbing Comments not safe to test this session PT-Balance Assessment Sitting Balance and Reactions Static Sitting Balance Ability Good Dynamic Sitting Balance Ability Fair Standing Balance and Reactions Static Standing Balance Ability Poor Dynamic Standing Balance Ability Poor Device Used FWW M5 PT-IP Objective Assessments Start: 01/23/19 08:12 Freq: NEEDED Status: Active Protocol: Document 01/23/19 12:00 RS (Rec: 01/23/19 12:15 RS [email or web address]) Orientation Orientation/Cognition Level of Alertness Alert Orientation Name Age Birthday Month Date Year Day of Week Place Situation Language Function Ability No Deficits Noted Safety Awareness Understands Safety Issues Gross Range of Motion Upper Extremity ROM Assessment Within Functional Limits Lower Extremity ROM Assessment Within Functional Limits Strength Lower Extremity Strength Assessment Bilaterally Impaired Comments Strength Comments RLE grossly 2/5 LLE grossly 3+/5 M6 PT-IP Treatment Start: 01/23/19 08:12 Freq: NEEDED Status: Active Protocol: Document 01/23/19 12:00 RS (Rec: 01/23/19 12:15 RS [email or web address]) Physical Therapy Treatment Exercises Exercises Ankle Pumps Education Education Provided Safety M7 PT-IP Assessment and Plan Start: 01/23/19 08:12 Freq: NEEDED Status: Active Protocol: Document 01/23/19 12:00 RS (Rec: 01/23/19 12:15 RS [email or web address]) PT Summary Assessment and Plan Potential Rehabilitation Potential Good Status of Condition at Evaluation Evolving Summary Impairments Strength Balance Bed Mobility Transfers Gait Activity Tolerance Assessment Summary Pt presents today with significant weakness, needing up to 2person mod A for functional mobility. This is far below pt's reported functional baseline. Patient has potential for functional improvement and will benefit from daily skilled therapy at SNF rehab to return pt to PLOF , decrease caregiver burden, and reduce fall risk. Patient and family are in agreement with this plan. Goals Bed Mobility Goal Minimal Assistance Transfer Goal Minimal Assistance Front Wheeled Walker Gait Goal Minimal Assistance Front Wheel Walker Gait Distance 25 Days to Meet Goals 4 Frequency of Treatment Frequency Of Treatment Once a Day Treatment Plan Physical Therapy Treatment Plan Bed Mobility Training Transfer Training Gait Training Therapeutic Exercise Balance Retraining Post Op Education Discharge Planning Hot or Cold Pack Neuromuscular Re-ed Coordination Retraining Manual Therapy Recommendations To Nursing Amount of Assist Needed 2 Person Assist Discharge Recommendations PT Discharge Recommendations SNF Rehab
--- NOTE | 2019-01-23 12:47 | PM.PN.1 ---
Subjective Date Patient Seen: 01/23/19 Interval history: Patient is 78-year-old male readmitted 1 day after discharge due to difficulty arousing and confusion. This time it appears he has UTI growing Enterococcus whereas previous admit urinalysis was normal. He had Harrison catheter on last admission due to acute urinary retention, discharged without Harrison catheter, then apparently needed catheter replaced in the ER on readmission. Patient appears to have improvement in alertness and mental status since his readmission. He is complaining of stool incontinence. 1. Urinary tract infection, likely catheter associated -urine culture positive Enterococcus, sensitivities pending -continue Unasyn 1.5 g IV q.6 hours 2. Urinary retention, acute/chronic -reportedly 700 cc retention last admit, seemed okay to discharge without Harrison catheter, then Harrison replaced in the ER due to unspecified reason but presumably acute retention -patient is status post prostatectomy for CA -start tamsulosin 0.4 mg daily -maintain catheter with plans for outpatient urology follow-up 3. Acute encephalopathy, resolved -likely related to UTI or urinary retention 4. Chronic right leg lymphedema -negative venous duplex ultrasound last admit 5. Possible diarrhea with stool incontinence -check stool C diff assay Exam Vital Signs (past 8 hours): - 01/23/19 05:20 01/23/19 10:54 Temperature 98.7 F 98.2 F Pulse Rate 72 80 Respiratory Rate 16 16 Blood Pressure 107/60 90/52 L Pulse Oximetry 99 98 Oxygen Delivery Method Room Air Oxygen Flow Rate 0 Narrative Exam Narrative: GENERAL: Alert elderly male sitting in chair and in no acute distress CHEST: Clear to auscultation bilaterally. CARDIAC: Regular rate and rhythm. ABDOMEN: Nondistended, soft, nontender EXTREMITIES: Chronic right lower leg indurated edema NEUROLOGICAL: Improvement taken, conversant though tangential SKIN: Warm, dry, no petechiae, no acute rash Objective Labs Result Diagrams: 01/22/19 18:58 01/22/19 18:58 Labs: Laboratory Results - last 24 hr 01/22/19 01/22/19 01/22/19 18:58 18:58 18:58 WBC 10.0 RBC 4.19 L Hgb 12.6 L Hct 38.1 L MCV 90.9 MCH 30.0 MCHC 33.0 RDW 14.1 Plt Count 145 L Neut % (Auto) 77.6 H Lymph % (Auto) 10.3 L [place] % (Auto) 11.5 Eos % (Auto) 0.3 L Baso % (Auto) 0.3 Neut # (Auto) 7800 H Lymph # (Auto) 1000 L [place] # (Auto) 1100 H Eos # (Auto) 0 Baso # (Auto) 0 ABG pH ABG pCO2 ABG pO2 ABG HCO3 ABG Total CO2 ABG O2 Saturation ABG Base Excess FiO2 Sodium 137 Potassium 3.5 Chloride 104 Carbon Dioxide 25 BUN 29 H Creatinine 0.90 Estimated GFR > 60.0 BUN/Creatinine Ratio 32.2 H Glucose 110 Calcium 8.4 Total Bilirubin 0.8 AST 40 ALT 38 Alkaline Phosphatase 87 Total Creatine Kinase CK-MB (CK-2) CK-MB (CK-2) Rel Index Troponin I Total Protein 6.1 L Albumin 3.2 L Globulin 2.9 Albumin/Globulin Ratio 1.1 Procalcitonin 0.27 Urine Color Urine Appearance Urine pH Ur Specific [place] Urine Protein Urine Glucose (UA) Urine Ketones Urine Occult Blood Urine Nitrate Urine Bilirubin Urine Urobilinogen Ur Leukocyte Esterase Urine RBC Urine WBC Ur Squamous Epith Cells Urine Bacteria Ur Culture Indicated? Urine Opiates Screen Ur Oxycodone Screen Urine Methadone Screen Ur Barbiturates Screen U Tricyclic Antidepress Ur Phencyclidine Scrn Ur Amphetamines Screen U Methamphetamines Scrn Ur MDMA Scrn (Ecstasy) U Benzodiazepines Scrn Urine Cocaine Screen U Marijuana (THC) Screen 01/22/19 01/22/19 01/22/19 18:58 19:25 19:34 WBC RBC Hgb Hct MCV MCH MCHC RDW Plt Count Neut % (Auto) Lymph % (Auto) [place] % (Auto) Eos % (Auto) Baso % (Auto) Neut # (Auto) Lymph # (Auto) [place] # (Auto) Eos # (Auto) Baso # (Auto) ABG pH 7.44 ABG pCO2 33.5 L ABG pO2 88 ABG HCO3 23 ABG Total CO2 24 ABG O2 Saturation 97 ABG Base Excess -1.0 FiO2 21 Sodium Potassium Chloride Carbon Dioxide BUN Creatinine Estimated GFR BUN/Creatinine Ratio Glucose Calcium Total Bilirubin AST ALT Alkaline Phosphatase Total Creatine Kinase 145 CK-MB (CK-2) 2.02 CK-MB (CK-2) Rel Index 1.4 L Troponin I < 0.012 Total Protein Albumin Globulin Albumin/Globulin Ratio Procalcitonin Urine Color Yellow Urine Appearance Sl cloudy Urine pH 5.0 Ur Specific [place] 1.025 Urine Protein Trace H Urine Glucose (UA) Negative Urine Ketones Negative Urine Occult Blood 2+ H Urine Nitrate Negative Urine Bilirubin Negative Urine Urobilinogen 0.2 Ur Leukocyte Esterase Negative Urine RBC 0-1/hpf Urine WBC 5-10/hpf H Ur Squamous Epith Cells None seen Urine Bacteria Many (>30) H Ur Culture Indicated? Specimen cultured Urine Opiates Screen Ur Oxycodone Screen Urine Methadone Screen Ur Barbiturates Screen U Tricyclic Antidepress Ur Phencyclidine Scrn Ur Amphetamines Screen U Methamphetamines Scrn Ur MDMA Scrn (Ecstasy) U Benzodiazepines Scrn Urine Cocaine Screen U Marijuana (THC) Screen 01/22/19 19:34 WBC RBC Hgb Hct MCV MCH MCHC RDW Plt Count Neut % (Auto) Lymph % (Auto) [place] % (Auto) Eos % (Auto) Baso % (Auto) Neut # (Auto) Lymph # (Auto) [place] # (Auto) Eos # (Auto) Baso # (Auto) ABG pH ABG pCO2 ABG pO2 ABG HCO3 ABG Total CO2 ABG O2 Saturation ABG Base Excess FiO2 Sodium Potassium Chloride Carbon Dioxide BUN Creatinine Estimated GFR BUN/Creatinine Ratio Glucose Calcium Total Bilirubin AST ALT Alkaline Phosphatase Total Creatine Kinase CK-MB (CK-2) CK-MB (CK-2) Rel Index Troponin I Total Protein Albumin Globulin Albumin/Globulin Ratio Procalcitonin Urine Color Urine Appearance Urine pH Ur Specific [place] Urine Protein Urine Glucose (UA) Urine Ketones Urine Occult Blood Urine Nitrate Urine Bilirubin Urine Urobilinogen Ur Leukocyte Esterase Urine RBC Urine WBC Ur Squamous Epith Cells Urine Bacteria Ur Culture Indicated? Urine Opiates Screen Negative Ur Oxycodone Screen Negative Urine Methadone Screen Negative Ur Barbiturates Screen Negative U Tricyclic Antidepress Negative Ur Phencyclidine Scrn Negative Ur Amphetamines Screen Negative U Methamphetamines Scrn Negative Ur MDMA Scrn (Ecstasy) Negative U Benzodiazepines Scrn Negative Urine Cocaine Screen Negative U Marijuana (THC) Screen Negative Quality VTE Deep Vein Thrombosis/Pulmonary Embolism Present on Admission: No
--- NOTE | 2019-01-23 13:21 | OT.IP.EVAL ---
Past Medical History (Last Reviewed 01/23/19 @ 00:13 by Autumn Benavides MD) Candidiasis of scrotum (Acute) HTN (hypertension) (Chronic) History of prostate cancer (Chronic) Incontinence (Chronic) Surgical History (Last Reviewed 01/23/19 @ 00:13 by Autumn Benavides MD) History of prostatectomy (Resolved) History of squamous cell carcinoma excision (Resolved) Occupational Therapy Inpatient Evaluation/Re-Eval Additional Social History Comment just moved in to [facility], normally lives on [facility] M1 PT/OT-IP Prior Functional Status Start: 01/23/19 13:01 Freq: NEEDED Status: Active Protocol: Document 01/23/19 13:01 [facility] (Rec: 01/23/19 13:21 [facility] [id number]) Medical Review Prior Functional Status Medical History Reviewed Yes Diet/Fluid Consistency Regular Communication no known deficits when not ill Mobility and Gait could mobilize with a SPC, denies falls Activities of Daily Living and IADL's got help from with certain tasks, socks and shoes , wiping after bowel movement and for bathing. Pt just moved into [facility] . Social History Household Members spouse other Living Arrangements Assisted Living Number of Floors (Floors) One Floor Home Environment High Toilet Walk in Shower Home Equipment Straight Cane Employment Status Retired Additional Social History Comment just moved in to [facility], normally lives on [facility]. Pt states has built in seat, grab bars and HHSP at [facility]. M2 OT-IP Current Condition Start: 01/23/19 13:01 Freq: Status: Active Protocol: Document 01/23/19 13:01 [facility] (Rec: 01/23/19 13:21 [facility] [id number]) Occupational Therapy Current Condition Current Condition Evaluation Date 01/23/19 Treatment Diagnosis Weakness Diagnosis Onset Date 01/22/19 M3 OT- IP Subjective and Pain Start: 01/23/19 13:01 Freq: Status: Active Protocol: Document 01/23/19 13:01 [facility] (Rec: 01/23/19 13:21 [facility] [id number]) OT- Subjective Occupational Therapy Visit Type Type Initial Evaluation Visit Start Time 11:42 Visit Stop Time 12:02 Total Visit Minutes 20 Occupational Therapy Visit Comments Patient Comments Pt felt it was too soon to be discharged from the hospital on 01/22/19 from admit 01/18/19. Patient/Caregiver Goals Pt willing to go to skilled rehab prior to going home. OT Pain Assessment Pain When Pain Assessed At Rest Pain Present Pain Present Denied Pain M4 OT- IP ADL's Start: 01/23/19 13:01 Freq: Status: Active Protocol: Document 01/23/19 13:01 [facility] (Rec: 01/23/19 13:21 [facility] [id number]) OT ADL-Dressing General Eval Lower Body Dressing Ability Maximum Assistance Areas Needing Assistance Underpants/Brief Socks Comments OT Dressing Comments MAX A for socks and brief management needs. OT ADL-Toileting General Evaluation Toileting Ability Maximum Assistance Areas Needing Assistance Manage Clothing Perform Perineal Hygiene Devices Toileting Assistive Devices Commode Comments OT Toileting Comments One person to assist to stand pt and another person assist for hygiene, and brief management needs. M5 OT- IP IADL's Start: 01/23/19 13:01 Freq: Status: Active Protocol: Document 01/23/19 13:01 [facility] (Rec: 01/23/19 13:21 [facility] [id number]) OT-Instrumental Activities of Daily Living Medication Management Medication Management Caregiver Administers Money Management Money Management Caregiver Provides Assistance Meal Preparation Meal Preparation Caregiver Provides Assist Immersion Metal Cleaner Immersion Metal Cleaner Caregiver Provides Assist Driving Driving Caregiver Provides Assist M6 OT- IP Functional Cognition Start: 01/23/19 13:01 Freq: Status: Active Protocol: Document 01/23/19 13:01 [facility] (Rec: 01/23/19 13:21 [facility] [id number]) Cognitive Factors Limiting Selfcare Function Cognitive Ability Level of Alertness Alert Patient Orientation Name Place Situation Attention Span Ability Capable of Focused Attention Capable of Sustained Attention Ability to Follow Commands Able to Follow One Step Commands Memory Description Short Term Impaired Safety Awareness Underestimates Need for Assistance Cognitive Comments Cognitive Assessment Comments Pt able to follow simple step command at this time and realizes that he needs to call for assistance. Decreased safety awareness due to does not realize that he leans backwards while standing with FWW and cues for hand and feet placement before standing and sitting down. OT- Vision and Hearing OT- Hearing Assessment OT- Hearing Assessment WFL OT- Vision Assessment Visual Acuity Glasses All The Time M7 OT- IP Mobility and Balance Start: 01/23/19 13:01 Freq: Status: Active Protocol: Document 01/23/19 13:01 [facility] (Rec: 01/23/19 13:21 [facility] [id number]) OT-Transfer Assessment Sit to and From Stand Sit to and from Stand Moderate Assistance 2 Person Assistance Transfers Transfer Ability Moderate Assistance 2 Person Assistance Technique Transfer Destination Bedside Commode Chair Transfer Technique Stand Step Pivot Devices Transfer Assistive Devices Gait Belt Front Wheeled Walker Comments Mobility Comments Sit to stand MODA x2, pt tends to lean backwards. MODA x2 for transfer as pt unsteady on his feet vc and physical cues to help pt reach back to recliner before sitting. OT- Balance Assessment Sitting Balance and Reactions Static Sitting Balance Ability Good Dynamic Sitting Balance Ability Fair Standing Balance and Reactions Static Standing Balance Ability Poor Dynamic Standing Balance Ability Poor M8 OT- IP Objective Assessments Start: 01/23/19 13:01 Freq: Status: Active Protocol: Document 01/23/19 13:01 [facility] (Rec: 01/23/19 13:21 [facility] [id number]) OT Gross Range of Motion Upper Extremity Range of Motion Assessment Within Functional Limits ROM Impairments WFL for ADL's. OT Strength Comments Strength Comments BUE strength 4-/5 OT- Coordination Assessment Comments Coordination Comments Pt requesting use of large handled utensils for meals. M9 OT- IP Assessment and Plan Start: 01/23/19 13:01 Freq: Status: Active Protocol: Document 01/23/19 13:01 [facility] (Rec: 01/23/19 13:21 [facility] [id number]) OT Summary Assessment and Plan Potential Rehabilitation Potential Good Analytic Complexity at Evaluation Low Summary OT Impairments Strength Balance Coordination Functional Cognition Functional Mobility Self-Feeding Grooming Dressing Toileting Bathing Toilet Transfers Shower Transfers Progress Towards Goals Slow Progress due to Medical Issues Slow Progress due to Activity Tolerance Slow Progress due to Cognition Assessment Summary Pt low complexity and main barrier are decreased activity tolerance, endurance and needing two person assist for all ADl and functional mobility needs and far from baseline and would benefit from skilled rehab prior to going home. Pt is cooperative and motivated to get better. Goals Self-Feeding Goal Independent Grooming Goal Minimal Assistance Dressing Goal Moderate Assistance Toileting Goal Moderate Assistance Bathing Goal Moderate Assistance Toilet Transfer Goal Minimal Assistance Shower Transfer Goal Moderate Assistance Patient/Caregiver Education Goal Caregiver Independent Assisting Patient OT-Other Goals Grooming goal while standing. Days to Meet Goals 5 Frequency of Treatment Frequency Of Treatment Once a Day Treatment Plan OT Treatment Plan ADL Training Functional Cognition Training Functional Mobility Patient/Family Education Discharge Planning Other Treatment Recommendations and Next Transfer to [facility] MODA X 1 with Treatment Focus FWW. Practice with [facility]. Discharge Recommendations OT Discharge Recommendations SNF Rehab
[2019-01-23] MEDS: TAMSULOSIN 0.4 MG CAPSULE PO (14:54)
[2019-01-23] MEDS: SODIUM CHLORIDE 0.9% 250 ML 21 ML IV (14:56)
[2019-01-23] MEDS: SODIUM CHLORIDE 0.9% FLUSH 10 ML IV (21:39)
--- NOTE | 2019-01-24 02:13 | PC.NURSE ---
Addendum entered by Itzel Montenegro R.N. 01/24/19 05:40: Did fall asleep for past couple hours and now found, again, with legs out side of bed. Reminded he is in the hospital and seems accepting of that and agreeable to putting legs back into the bed. Now is noted to be fidgeting with bedding but not attempting to crawl out of bed as yet. Original Note: Patient awake and oriented except to place but then repeatedly talking about people trying to take away his property. Wants to know who owns this place, who is paying the bills, questioning what we do here etc. Making attempts to get out of bed so he can walk around and survey the situation. When reminded he is in the hospital in [place] he continually reverts back to talking about other's taking away his property. reports this is his normal and that when he was at a SNF in the past would wander the halls at night and go into other resident rooms. Difficult to get him to understand reality. Breath sounds are diminished but CTA with RA sat of 98%. HRR. Denies nausea. BT present and abdomen is soft. Scrotal/groin area slightly pink. Edema in bilateral LE unchanged. Indwelling catheter is patent with clear linda urine in bag. Can assist in repositioning and reportedly requires assist of 2 + walker out of bed. Fall risk score is high and bed alarm is activated. present in room.
[2019-01-24] MEDS: AMPICILLIN/SULBACTAM 1.5 GM 1.5 GM in SODIUM CHLORIDE 0.9% 100 ML IV ×2 (02:51→09:56)
[2019-01-24] MEDS: SODIUM CHLORIDE 0.9% FLUSH 10 ML IV ×3 (02:51→22:38)
[2019-01-24 03:52] VITALS: BP 117/70; PULSE 75; RESP 16; TEMP 36.7; O2SAT 97
[2019-01-24 08:13] VITALS: BP 122/75; PULSE 74; RESP 16; TEMP 36.6; O2SAT 97
[2019-01-24] MEDS: ASPIRIN EC 81 MG TABLET PO (09:54)
[2019-01-24] MEDS: CHOLECALCIFEROL (VITAMIN D3) 1,000 UNIT TABLET 1000 UNIT PO (09:54)
[2019-01-24] MEDS: CYANOCOBALAMIN (VITAMIN B-12) 500 MCG TABLET PO (09:55)
[2019-01-24] MEDS: TAMSULOSIN 0.4 MG CAPSULE PO (09:55)
[2019-01-24] MEDS: ENOXAPARIN 40 MG/0.4 ML SYRINGE SUBCUT (09:56)
[2019-01-24] MEDS: ZINC OXIDE OINT 60 GM TOP ×2 (10:47→22:38)
[2019-01-24] MEDS: KETOCONAZOLE 2% CREAM 15 GM TOP (10:47)
[2019-01-24 12:27] VITALS: BMI 23.6
[2019-01-24 12:38] VITALS: BP 109/73; PULSE 92; RESP 16; TEMP 36.6; O2SAT 100
--- NOTE | 2019-01-24 12:56 | OT.IP.TRT ---
Current Diagnoses Infection and inflammatory reaction due to indwelling urethral catheter, initial encounter (01/23/19) Occupational Therapy Treatment Note M2 OT-IP Current Condition Start: 01/23/19 13:01 Freq: Status: Active Protocol: Document 01/23/19 13:01 [facility] (Rec: 01/23/19 13:21 [facility] [id number]) Occupational Therapy Current Condition Current Condition Evaluation Date 01/23/19 Treatment Diagnosis Weakness Diagnosis Onset Date 01/22/19 M3 OT- IP Subjective and Pain Start: 01/23/19 13:01 Freq: Status: Active Protocol: Document 01/24/19 12:41 [facility] (Rec: 01/24/19 12:56 [facility] [id number]) OT- Subjective Occupational Therapy Visit Type Type Treatment Note Visit Start Time 11:45 Visit Stop Time 12:35 Total Visit Minutes 50 Occupational Therapy Visit Comments Patient Comments Pt states just had a BM while talking to the doctor earlier. Pt agreed to get up to the BSC and sponge bath. OT Pain Assessment Pain When Pain Assessed At Rest Pain Present Pain Present Denied Pain M4 OT- IP ADL's Start: 01/23/19 13:01 Freq: Status: Active Protocol: Document 01/24/19 12:41 [facility] (Rec: 01/24/19 12:56 [facility] [id number]) OT ADL-Grooming General Evaluation Grooming Ability Minimal Assistance Areas Needing Assistance Retrieving/Set-up of Grooming Items Combing/Brushing Hair Comments OT Grooming Comments Pt able to wash face and hands after set-up, pt needing assist for completeness to comb his wet hair after use of shower cap. Pt states to shave later. OT ADL-Dressing General Eval Lower Body Dressing Ability Maximum Assistance Areas Needing Assistance Socks OT ADL-Toileting General Evaluation Toileting Ability Maximum Assistance Areas Needing Assistance Manage Clothing Perform Perineal Hygiene Devices Toileting Assistive Devices Commode Comments OT Toileting Comments Dependent for hygiene and brief management. OT ADL-Bathing Bathing Type Bathing Type Sponge Bath General Evaluation Bathing Ability Moderate Assistance Areas Needing Assistance Wash/Dry Back Wash/Dry Perineal Area Wash/Dry Lower Extremities Devices Bathing Equipment Shower Chair with Arms Rinse Free Shampoo Cap Comments OT Bathing Comments Pt needing assist for sponge bath, however able to assist for chest, arms , upper legs and partially for pericare needs after set- up of wash cloths while sitting on BSC. M5 OT- IP IADL's Start: 01/23/19 13:01 Freq: Status: Active Protocol: Document 01/23/19 13:01 [facility] (Rec: 01/23/19 13:21 [facility] [id number]) OT-Instrumental Activities of Daily Living Medication Management Medication Management Caregiver Administers Money Management Money Management Caregiver Provides Assistance Meal Preparation Meal Preparation Caregiver Provides Assist Instrumental Teacher Instrumental Teacher Caregiver Provides Assist Driving Driving Caregiver Provides Assist M6 OT- IP Functional Cognition Start: 01/23/19 13:01 Freq: Status: Active Protocol: Document 01/24/19 12:41 [facility] (Rec: 01/24/19 12:56 [facility] [id number]) Cognitive Factors Limiting Selfcare Function Cognitive Ability Level of Alertness Alert Confusional State Patient Orientation Name Place Situation Attention Span Ability Capable of Focused Attention Capable of Sustained Attention Ability to Follow Commands Able to Follow One Step Commands Memory Description Short Term Impaired Safety Awareness Underestimates Need for Assistance Cognitive Comments Cognitive Assessment Comments Pt hallucinating and seeing water being sprayed in front of him, nursing notified. Pt's states pt prior hallucinates at times. Pt doing better with bed mobilty KEN x2 A MIN vc and then when about to stand needing MAX vc to help sequence through tasks. Pt gets distracted easily and needing cues to stay on task. M7 OT- IP Mobility and Balance Start: 01/23/19 13:01 Freq: Status: Active Protocol: Document 01/24/19 12:41 [facility] (Rec: 01/24/19 12:56 [facility] [id number]) OT- Bed Mobility Assessment Rolling Type of Rolling Roll to Left Supine to Sit Supine to Sit Assist Minimal Assistance 2 Person Assistance Bedrails OT-Transfer Assessment Sit to and From Stand Sit to and from Stand Moderate Assistance 2 Person Assistance Transfers Transfer Ability Moderate Assistance 2 Person Assistance Technique Transfer Destination Bedside Commode Chair Devices Transfer Assistive Devices Gait Belt Front Wheeled Walker Comments Mobility Comments Bed mobility log rolling and getting up improved to KEN x 2. Sit to stand still MODA x 2 , pt tends to lean backwards, and also needing assist to guide FWW during transfer to [facility], and recliner. Pt having difficulty to lower himself as very tall and having trouble to coordinate his movements and tends to loss control at the end, 4-6 inches from sitting down to surface and needing more assist to guide down to surfaces sitting on. OT- Balance Assessment Sitting Balance and Reactions Static Sitting Balance Ability Good Dynamic Sitting Balance Ability Fair Standing Balance and Reactions Static Standing Balance Ability Poor Dynamic Standing Balance Ability Poor M8 OT- IP Objective Assessments Start: 01/23/19 13:01 Freq: Status: Active Protocol: Document 01/23/19 13:01 [facility] (Rec: 01/23/19 13:21 [facility] [id number]) OT Gross Range of Motion Upper Extremity Range of Motion Assessment Within Functional Limits ROM Impairments WFL for ADL's. OT Strength Comments Strength Comments BUE strength 4-/5 OT- Coordination Assessment Comments Coordination Comments Pt requesting use of large handled utensils for meals. M9 OT- IP Assessment and Plan Start: 01/23/19 13:01 Freq: Status: Active Protocol: Document 01/24/19 12:41 [facility] (Rec: 01/24/19 12:56 [facility] [id number]) OT Summary Assessment and Plan Potential Rehabilitation Potential Good Analytic Complexity at Evaluation Low Summary OT Impairments Strength Balance Coordination Functional Cognition Functional Mobility Self-Feeding Grooming Dressing Toileting Bathing Toilet Transfers Shower Transfers Progress Towards Goals Slow Progress due to Medical Issues Slow Progress due to Activity Tolerance Slow Progress due to Cognition Assessment Summary Pt doing better with bed mobility and able to actively participate more in ADLs today of sponge bathing and grooming. Pt will benefit from skilled rehab prior to going home as currently needing two person assist for mobility needs. Goals Self-Feeding Goal Independent Grooming Goal Minimal Assistance Dressing Goal Moderate Assistance Toileting Goal Moderate Assistance Bathing Goal Moderate Assistance Toilet Transfer Goal Minimal Assistance Shower Transfer Goal Moderate Assistance Patient/Caregiver Education Goal Caregiver Independent Assisting Patient OT-Other Goals Grooming goal while standing. Days to Meet Goals 7 Frequency of Treatment Frequency Of Treatment Once a Day Treatment Plan OT Treatment Plan ADL Training Functional Cognition Training Functional Mobility Patient/Family Education Discharge Planning Other Treatment Recommendations and Next Transfer to [facility] MODA X 1 with Treatment Focus FWW. Practice with [facility]. Discharge Recommendations OT Discharge Recommendations SNF Rehab
[2019-01-24 13:11] VITALS: O2SAT 97
--- NOTE | 2019-01-24 13:19 | PC.NURSE ---
stool sent down for c.diff specimen.
--- NOTE | 2019-01-24 13:38 | PT.IPTN ---
Current Diagnoses Infection and inflammatory reaction due to indwelling urethral catheter, initial encounter (01/23/19) Physical Therapy Treatment Note M2 PT-IP Current Condition Start: 01/23/19 08:12 Freq: NEEDED Status: Active Protocol: Document 01/23/19 12:00 [facility] (Rec: 01/23/19 12:15 [facility] [email or web address]) Physical Therapy Current Condition Current Condition Evaluation Date 01/23/19 Treatment Diagnosis weakness, debility Onset Date a few days ago M3 PT-IP Subjective Start: 01/23/19 08:12 Freq: NEEDED Status: Active Protocol: Document 01/24/19 13:31 [facility] (Rec: 01/24/19 13:38 [facility] [id number]) Subjective Physical Therapy Visit Type Type Treatment Note Visit Start Time 11:30 Visit Stop Time 12:30 Total Visit Minutes 60 Physical Therapy Visit Comments Patient Comments Pt reports having a BM, needs to get cleaned up. Therapy Pain Assessment Pain When Pain Assessed At Rest Pain Present Pain Present Denied Pain M4 PT-IP Mobility and Gait Start: 01/23/19 08:12 Freq: NEEDED Status: Active Protocol: Document 01/24/19 13:31 [facility] (Rec: 01/24/19 13:38 [facility] [id number]) PT-Bed Mobility Assessment Rolling Level of Assist Minimal Assistance 1 Person Assistance Supine to Sit Supine to Sit Moderate Assistance Head of Bed Elevated Bedrails Scooting Scooting to Edge of Bed Minimal Assistance PT-Transfer Assessment Sit to and From Stand Sit to and from Stand Moderate Assistance 2 Person Assistance Equipment Transfer Assistive Device Front Wheeled Walker Transfers Transfer Destination Chair Bedside Commode Transfer Technique Stand Step Pivot Transfer Ability Level of Assist Moderate Assistance 2 Person Assistance Comments Mobility Comments Pt initially doing better, needing less assist to stand up but once standing pt needed more assist to maintain static stance. Pt continued to lean backward as he felt like he was going to fall forward. Gait Assessment Comments Gait Comments limited walking, more of a step-pivot transfer PT-Balance Assessment Sitting Balance and Reactions Static Sitting Balance Ability Good Dynamic Sitting Balance Ability Fair Standing Balance and Reactions Static Standing Balance Ability Poor Dynamic Standing Balance Ability Poor Device Used FWW M5 PT-IP Objective Assessments Start: 01/23/19 08:12 Freq: NEEDED Status: Active Protocol: Document 01/23/19 12:00 [facility] (Rec: 01/23/19 12:15 [facility] [email or web address]) Orientation Orientation/Cognition Level of Alertness Alert Orientation Name Age Birthday Month Date Year Day of Week Place Situation Language Function Ability No Deficits Noted Safety Awareness Understands Safety Issues Gross Range of Motion Upper Extremity ROM Assessment Within Functional Limits Lower Extremity ROM Assessment Within Functional Limits Strength Lower Extremity Strength Assessment Bilaterally Impaired Comments Strength Comments RLE grossly 2/5 LLE grossly 3+/5 M6 PT-IP Treatment Start: 01/23/19 08:12 Freq: NEEDED Status: Active Protocol: Document 01/23/19 12:00 [facility] (Rec: 01/23/19 12:15 [facility] [id number]) Physical Therapy Treatment Exercises Exercises Ankle Pumps Education Education Provided Safety M7 PT-IP Assessment and Plan Start: 01/23/19 08:12 Freq: NEEDED Status: Active Protocol: Document 01/24/19 13:31 [facility] (Rec: 01/24/19 13:38 [facility] [id number]) PT Summary Assessment and Plan Potential Rehabilitation Potential Good Status of Condition at Evaluation Evolving Summary Impairments Strength Balance Bed Mobility Transfers Gait Activity Tolerance Progress Towards Goals Progressing Toward Goals Assessment Summary Pt continues to need up to 2- person assist, continue to recommend pt transition to SNF rehab once medically ready. Pt did have some hallucinations during session today but was able to be redirected. Pt still needs lots of cues for sequencing and hand placement during transfers. Goals Bed Mobility Goal Minimal Assistance Transfer Goal Minimal Assistance Front Wheeled Walker Gait Goal Minimal Assistance Front Wheel Walker Gait Distance 25 Days to Meet Goals 3 Frequency of Treatment Frequency Of Treatment Once a Day Treatment Plan Physical Therapy Treatment Plan Bed Mobility Training Transfer Training Gait Training Therapeutic Exercise Balance Retraining Post Op Education Discharge Planning Hot or Cold Pack Neuromuscular Re-ed Coordination Retraining Manual Therapy Other Recommendations and Next Treatment transfers and transition to Focus gait (try to see when pt is not getting up to commode so there's more time for mobility ) Recommendations To Nursing Amount of Assist Needed 2 Person Assist Discharge Recommendations PT Discharge Recommendations SNF Rehab
[2019-01-24 14:33] LABS: Clostridium Difficile Tox PCR Negative for C. diff
[2019-01-24 15:54] VITALS: BP 100/68; PULSE 82; RESP 18; TEMP 36.8; O2SAT 97
[2019-01-24 20:00] VITALS: BP 128/78; PULSE 73; RESP 16; TEMP 36.7; O2SAT 100
--- NOTE | 2019-01-24 20:38 | PM.PN.1 ---
Subjective Date Patient Seen: 01/24/19 Interval history: Patient is 78-year-old male readmitted 1 day after discharge due to difficulty arousing and confusion. This time it appears he has UTI growing Enterococcus whereas previous admit urinalysis was normal. He had Harrison catheter on last admission due to acute urinary retention, discharged without Harrison catheter, then apparently needed catheter replaced in the ER on readmission. Patient appears to have improvement in alertness and mental status since his readmission. He is complaining of stool incontinence. Patient without new complaints but feels generally very weak. Exam Vital Signs (past 8 hours): - 01/24/19 13:11 01/24/19 15:54 Temperature 98.2 F Pulse Rate 82 Respiratory Rate 18 Blood Pressure 100/68 Pulse Oximetry 97 97 Oxygen Delivery Method Room Air Oxygen Flow Rate 0 Narrative Exam Narrative: General: Alert, pleasant, NAD Objective Labs Result Diagrams: 01/22/19 18:58 01/22/19 18:58 Labs: Laboratory Results - last 24 hr 01/23/19 12:46 C. difficile Tox (PCR) Negative for c. diff Assessment & Plan Assessment & Plan narrative: Patient is 78-year-old male readmitted 1 day after discharge due to difficulty arousing and confusion. This time it appears he has UTI growing Enterococcus whereas previous admit urinalysis was normal. He had Harrison catheter on last admission due to acute urinary retention, discharged without Harrison catheter, then apparently needed catheter replaced in the ER on readmission. Patient appears to have improvement in alertness and mental status since his readmission. He is complaining of stool incontinence. 1. Urinary tract infection, likely catheter associated -urine culture positive Enterococcus, sensitive to amoxicillin, nitrofurantoin, Levaquin -stopped Unasyn 1.5 g IV q.6 hours, and started Augmentin 875/125 mg b.i.d. for 10 day course 2. Urinary retention, acute/chronic -reportedly 700 cc retention last admit, seemed okay to discharge without Harrison catheter, then Harrison replaced in the ER due to unspecified reason but presumably acute retention -patient is status post prostatectomy for CA -started on tamsulosin 0.4 mg daily -maintain catheter with plans for outpatient urology follow-up 3. Acute encephalopathy, resolved -likely related to UTI or urinary retention 4. Chronic right leg lymphedema -negative venous duplex ultrasound last admit 5. Stool incontinence without actual diarrhea Disposition: Patient with stable improving course and awaiting detention rehab placement at [facility] as he is too weak to go back to [facility]. Likely discharge on . Quality VTE Deep Vein Thrombosis/Pulmonary Embolism Present on Admission: No
--- NOTE | 2019-01-24 20:42 | P.PN_ITS ---
Subjective Date Patient Seen: 01/24/19 Interval history: Patient is 78-year-old male readmitted 1 day after discharge due to difficulty arousing and confusion. This time it appears he has UTI growing Enterococcus whereas previous admit urinalysis was normal. He had Harrison catheter on last admission due to acute urinary retention, discharged without Harrison catheter, then apparently needed catheter replaced in the ER on readmission. Patient appears to have improvement in alertness and mental status since his readmission. He is complaining of stool incontinence. Patient without new complaints but feels generally very weak. Exam Vital Signs (past 8 hours): - 01/24/19 13:11 01/24/19 15:54 Temperature 98.2 F Pulse Rate 82 Respiratory Rate 18 Blood Pressure 100/68 Pulse Oximetry 97 97 Oxygen Delivery Method Room Air Oxygen Flow Rate 0 Narrative Exam Narrative: General: Alert, pleasant, NAD Objective Labs Result Diagrams: 01/22/19 18:58 01/22/19 18:58 Labs: Laboratory Results - last 24 hr 01/23/19 12:46 C. difficile Tox (PCR) Negative for c. diff Assessment & Plan Assessment & Plan narrative: Patient is 78-year-old male readmitted 1 day after discharge due to difficulty arousing and confusion. This time it appears he has UTI growing Enterococcus whereas previous admit urinalysis was normal. He had Harrison catheter on last admission due to acute urinary retention, discharged without Harrison catheter, then apparently needed catheter replaced in the ER on readmission. Patient appears to have improvement in alertness and mental status since his readmission. He is complaining of stool incontinence. 1. Urinary tract infection, likely catheter associated -urine culture positive Enterococcus, sensitive to amoxicillin, nitrofurantoin, Levaquin -stopped Unasyn 1.5 g IV q.6 hours, and started Augmentin 875/125 mg b.i.d. for 10 day course 2. Urinary retention, acute/chronic -reportedly 700 cc retention last admit, seemed okay to discharge without Harrison catheter, then Harrison replaced in the ER due to unspecified reason but presumably acute retention -patient is status post prostatectomy for CA -started on tamsulosin 0.4 mg daily -maintain catheter with plans for outpatient urology follow-up 3. Acute encephalopathy, resolved -likely related to UTI or urinary retention 4. Chronic right leg lymphedema -negative venous duplex ultrasound last admit 5. Stool incontinence without actual diarrhea Disposition: Patient with stable improving course and awaiting group home rehab placement at [facility] as he is too weak to go back to [facility]. Likely discharge on . Quality VTE Deep Vein Thrombosis/Pulmonary Embolism Present on Admission: No
[2019-01-24] MEDS: AMOXICILLIN/CLAV 875/125 MG 1 TAB PO (22:38)
--- NOTE | 2019-01-24 23:53 | PC.NURSE ---
Jayleen shift note: Patient awake, oriented to self and month only. Speaking in short sentences. Attempted to get up out of bed to BSC, patient is too weak and unsteady. Used Faisal lift. Had one BM, incontinent this shift. at bedside providing supportive care.
[2019-01-25] VITALS (11 sets, daily range): BP systolic 74–132; BP diastolic 47–77; PULSE 72–85; RESP 16–20; TEMP 36.3–36.9; O2SAT 95–99
--- NOTE | 2019-01-25 00:27 | PC.NURSE ---
2300- Pt sleeping in bed. indwelling hernandez catheter placed for urine retention--draining pale yellow urine w/o and pain reported. Pt oriented to self only at this time; remains at bedside. Unsure of time or situation, reoriented to the best of his ability. Bed alarm in place.
--- NOTE | 2019-01-25 10:44 | OT.IP.TRT ---
Current Diagnoses Infection and inflammatory reaction due to indwelling urethral catheter, initial encounter (01/23/19) Occupational Therapy Treatment Note M2 OT-IP Current Condition Start: 01/23/19 13:01 Freq: Status: Active Protocol: Document 01/23/19 13:01 [facility] (Rec: 01/23/19 13:21 [facility] [id number]) Occupational Therapy Current Condition Current Condition Evaluation Date 01/23/19 Treatment Diagnosis Weakness Diagnosis Onset Date 01/22/19 M3 OT- IP Subjective and Pain Start: 01/23/19 13:01 Freq: Status: Active Protocol: Document 01/25/19 10:44 [facility] (Rec: 01/25/19 16:09 [facility] [id number]) OT- Subjective Occupational Therapy Visit Type Type Treatment Note Visit Start Time 09:31 Visit Stop Time 10:44 Total Visit Minutes 73 Notes Pt's observing this session. Partial co tx with P.T. Pt has long standing RLE lymphedema from prostate cancer surgery 30+ years ago with recent exacerbation. Pt reports RLE is twice its usual size. reports pt used to have custom compression stocking but has not worn it in 15 years and it was lost. No zakiya wraps on RLE for edema control and none found in room. Discussed with RN and measured pt for thigh high BERNABE hose and obtained correct size (large, long) from central supply. RN to obtain MD order for application of thigh BERNABE hose on RLE for edema control. Recommend RLE BERNABE hose be worn 23 hours/day and remove 1 hr/day for hygiene and skin check. Occupational Therapy Visit Comments Patient Comments I feel better today. Patient/Caregiver Goals to go back to [facility] when stronger OT Pain Assessment Pain When Pain Assessed After Treatment Pain Present Pain Present Denied Pain M4 OT- IP ADL's Start: 01/23/19 13:01 Freq: Status: Active Protocol: Document 01/25/19 10:44 [facility] (Rec: 01/25/19 16:09 [facility] [id number]) OT ECA-Elbc-Lsxioaj General Evaluation Self-Feeding Ability Standby Assistance Areas Needing Assistance Bringing Utensil to Mouth Cutting Food Drinking From Cup/Glass Loading Utensil Opening Containers Comments OT Self-Feeding Comments Pt needs supervision for safety for size of bites and verbal cuss to correct R hand position on large handled utensils provided by dietary. OT ADL-Grooming General Evaluation Grooming Ability Standby Assistance Areas Needing Assistance Combing/Brushing Hair Face Washing Comments OT Grooming Comments Standing at sink with FWW and close CGA for balance. Tends to drift into retropulsion in standing with poor self monitoring. Pt stood ~5 min at sink. OT ADL-Dressing General Eval Lower Body Dressing Ability Total Assistance Areas Needing Assistance Socks OT ADL-Toileting General Evaluation Toileting Ability Total Assistance Areas Needing Assistance Manage Clothing Perform Perineal Hygiene Devices Toileting Assistive Devices Raised Toilet Seat Comments OT Toileting Comments Pt needs total assist for kenyon care after loose stool in brief while standing at sink. Pt has some awareness of need to have further BM. Pt stood another 5+ min with CGA with M6 OT- IP Functional Cognition Start: 01/23/19 13:01 Freq: Status: Active Protocol: Document 01/25/19 10:44 [facility] (Rec: 01/25/19 16:09 [facility] [id number]) Cognitive Factors Limiting Selfcare Function Cognitive Ability Level of Alertness Alert Attention Span Ability Capable of Focused Attention Capable of Sustained Attention Ability to Follow Commands Able to Follow One Step Commands Memory Description Short Term Impaired Safety Awareness Decreased Recall of Precautions Decreased Ability to Apply Precautions Underestimates Need for Assistance Problem Solving Ability Unable to Identify Errors Needs Assist to Identify Solutions Cognitive Comments Cognitive Assessment Comments Pt more alert with more conversation and brighter affect today. Faster speed of processing noted with command following. Good participation and effort with all tasks. M7 OT- IP Mobility and Balance Start: 01/23/19 13:01 Freq: Status: Active Protocol: Document 01/25/19 10:44 [facility] (Rec: 01/25/19 16:09 [facility] [id number]) OT- Bed Mobility Assessment Rolling Type of Rolling Roll to Left Level of Assistance Minimal Assistance 1 Person Assistance Head of Bed Elevated Bedrails Supine to Sit Supine to Sit Assist Moderate Assistance 1 Person Assistance Head of Bed Elevated Bedrails Scooting Scooting to Edge of Bed Minimal Assistance 1 Person Assistance OT-Transfer Assessment Sit to and From Stand Sit to and from Stand Moderate Assistance 2 Person Assistance Use of Upper Extremities Transfers Transfer Ability Minimal Assistance 2 Person Assistance Technique Transfer Destination Bedside Commode Chair Transfer Technique Stand Step Pivot Devices Transfer Assistive Devices Gait Belt Front Wheeled Walker Comments Mobility Comments Pt needs mod to max cues for technique for all mobility. Extensor rigidity interferes with sitting in chair and pt tends to fall backwards into chair. Less retropulsion with sit to stand today. OT- Gait Assessment Gait Gait Assistance Required: Minimum Assistance Distance (Feet) 16 Assistive Devices Assistive Device Gait Belt Front Wheeled Walker Comments Gait Ability Comments 2 person assist for safety, 8+ 8 feet to sink and back with seated rest on BSC OT- Balance Assessment Sitting Balance and Reactions Static Sitting Balance Ability Fair Dynamic Sitting Balance Ability Poor Standing Balance and Reactions Static Standing Balance Ability Fair Dynamic Standing Balance Ability Poor M8 OT- IP Objective Assessments Start: 01/23/19 13:01 Freq: Status: Active Protocol: Document 01/23/19 13:01 [facility] (Rec: 01/23/19 13:21 [facility] [id number]) OT Gross Range of Motion Upper Extremity Range of Motion Assessment Within Functional Limits ROM Impairments WFL for ADL's. OT Strength Comments Strength Comments BUE strength 4-/5 OT- Coordination Assessment Comments Coordination Comments Pt requesting use of large handled utensils for meals. M9 OT- IP Assessment and Plan Start: 01/23/19 13:01 Freq: Status: Active Protocol: Document 01/25/19 10:44 [facility] (Rec: 01/25/19 16:09 [facility] [email or web address]) OT Summary Assessment and Plan Potential Rehabilitation Potential Good Summary OT Impairments Strength Balance Functional Cognition Functional Mobility Self-Feeding Grooming Dressing Toileting Bathing Toilet Transfers Shower Transfers Progress Towards Goals Progressing Toward Goals Assessment Summary Pt more alert with faster speed of processing today. Improvements in functional mobility, standing tolerance and independence with grooming at sink today. Self feeding also improved with pt able to due some bilateral cutting of soft foods. Pt will benefit from consistent use of compression sock on RLE to assist with edema reduction due to lymphedema exacerbation. Edema in RLE does hinder functional mobility and ability to advance RLE during gait with FWW. Pt not safe to return to assisted living facility at present. He currently needs assist during all waking hours with self care and all functional mobility. Recommend SNF for further rehab services. Goals Grooming Goal Standby Assistance Dressing Goal Moderate Assistance Toileting Goal Moderate Assistance Bathing Goal Moderate Assistance Toilet Transfer Goal Contact Guard Assistance Patient/Caregiver Education Goal Caregiver Independent Assisting Patient OT-Other Goals Grooming goal while standing. Days to Meet Goals 7 Treatment Plan OT Treatment Plan ADL Training Functional Cognition Training Functional Mobility Patient/Family Education Discharge Planning Discharge Recommendations OT Discharge Recommendations SNF Rehab
[2019-01-25] MEDS: CYANOCOBALAMIN (VITAMIN B-12) 500 MCG TABLET PO (11:02)
[2019-01-25] MEDS: CHOLECALCIFEROL (VITAMIN D3) 1,000 UNIT TABLET 1000 UNIT PO (11:02)
[2019-01-25] MEDS: ASPIRIN EC 81 MG TABLET PO (11:02)
[2019-01-25] MEDS: AMOXICILLIN/CLAV 875/125 MG 1 TAB PO ×2 (11:02→20:10)
[2019-01-25] MEDS: KETOCONAZOLE 2% CREAM 15 GM TOP (11:03)
[2019-01-25] MEDS: ENOXAPARIN 40 MG/0.4 ML SYRINGE SUBCUT (11:03)
[2019-01-25] MEDS: TAMSULOSIN 0.4 MG CAPSULE PO (11:03)
[2019-01-25] MEDS: SODIUM CHLORIDE 0.9% FLUSH 10 ML IV ×2 (11:03→20:46)
[2019-01-25] MEDS: ZINC OXIDE OINT 60 GM TOP ×2 (11:04→20:45)
--- NOTE | 2019-01-25 15:14 | PT.IPTN ---
Current Diagnoses Infection and inflammatory reaction due to indwelling urethral catheter, initial encounter (01/23/19) Physical Therapy Treatment Note M2 PT-IP Current Condition Start: 01/23/19 08:12 Freq: NEEDED Status: Active Protocol: Document 01/23/19 12:00 [facility] (Rec: 01/23/19 12:15 [facility] [email or web address]) Physical Therapy Current Condition Current Condition Evaluation Date 01/23/19 Treatment Diagnosis weakness, debility Onset Date a few days ago M3 PT-IP Subjective Start: 01/23/19 08:12 Freq: NEEDED Status: Active Protocol: Document 01/25/19 09:45 [facility] (Rec: 01/25/19 15:14 [facility] [email or web address]) Subjective Physical Therapy Visit Type Type Treatment Note Visit Start Time 09:45 Visit Stop Time 10:30 Total Visit Minutes 45 Notes co-treat with OT Physical Therapy Visit Comments Patient Comments Pt reports having a BM, needs to get cleaned up. Therapy Pain Assessment Pain When Pain Assessed At Rest Pain Present Pain Present Denied Pain M4 PT-IP Mobility and Gait Start: 01/23/19 08:12 Freq: NEEDED Status: Active Protocol: Document 01/25/19 09:45 [facility] (Rec: 01/25/19 15:14 [facility] [email or web address]) PT-Bed Mobility Assessment Rolling Level of Assist Minimal Assistance 1 Person Assistance Supine to Sit Supine to Sit Moderate Assistance Head of Bed Elevated Bedrails Scooting Scooting to Edge of Bed Minimal Assistance PT-Transfer Assessment Sit to and From Stand Sit to and from Stand Moderate Assistance 2 Person Assistance Equipment Transfer Assistive Device Front Wheeled Walker Transfers Transfer Destination Chair Bedside Commode Transfer Technique Stand Step Pivot Transfer Ability Level of Assist Minimal Assistance Use of Upper Extremities Comments Mobility Comments Pt got up and amb to sink counter for clean up. He presented reduced retropulsion but cont needed cues from time to time to lean forward. Pt also needed max cues from stand to sit to bend knees and hips instead of trunk extension. Gait Assessment Gait Gait Assistance Required: Minimum Assistance 1 Person Assist Distance (Feet) 8 Assistive Devices Assistive Device Front Wheeled Walker Gait Deviations General Gait Pattern Decreased Stride Length Decreased Feet Clearance Factors Limiting Gait Function Factors Limiting Gait Function Decreased Activity Tolerance Decreased Sensation Decreased Strength Limited Range of Motion Poor Balance Poor Safety Awareness Comments Gait Comments amb to counter and returned to chair with min A. Pt max cues A for safety awareness and guide his FWW for direction. pt tends to take steps before his walker. Stair Climbing Assessment Comments Stair Climbing Comments not safe to test this session M5 PT-IP Objective Assessments Start: 01/23/19 08:12 Freq: NEEDED Status: Active Protocol: Document 01/23/19 12:00 RS (Rec: 01/23/19 12:15 RS [email or web address]) Orientation Orientation/Cognition Level of Alertness Alert Orientation Name Age Birthday Month Date Year Day of Week Place Situation Language Function Ability No Deficits Noted Safety Awareness Understands Safety Issues Gross Range of Motion Upper Extremity ROM Assessment Within Functional Limits Lower Extremity ROM Assessment Within Functional Limits Strength Lower Extremity Strength Assessment Bilaterally Impaired Comments Strength Comments RLE grossly 2/5 LLE grossly 3+/5 M6 PT-IP Treatment Start: 01/23/19 08:12 Freq: NEEDED Status: Active Protocol: Document 01/23/19 12:00 RS (Rec: 01/23/19 12:15 RS [email or web address]) Physical Therapy Treatment Exercises Exercises Ankle Pumps Education Education Provided Safety M7 PT-IP Assessment and Plan Start: 01/23/19 08:12 Freq: NEEDED Status: Active Protocol: Document 01/25/19 09:45 [facility] (Rec: 01/25/19 15:14 [facility] [email or web address]) PT Summary Assessment and Plan Potential Rehabilitation Potential Good Status of Condition at Evaluation Evolving Summary Impairments Strength Balance Bed Mobility Transfers Gait Activity Tolerance Progress Towards Goals Progressing Toward Goals Assessment Summary Placed stock socking on his RLE with OT today. Pt cont to need 2 person A. Pt did improve in amb distance and standing balance with reduced retropulsion. But he cont need max cues for guidance, sequencing and hip hinge during stand to sit. Pt will benefit from SNF due to his fall risks and poor safety awareness. Goals Bed Mobility Goal Minimal Assistance Transfer Goal Minimal Assistance Front Wheeled Walker Gait Goal Minimal Assistance Front Wheel Walker Gait Distance 25 Days to Meet Goals 3 Frequency of Treatment Frequency Of Treatment Once a Day Treatment Plan Physical Therapy Treatment Plan Bed Mobility Training Transfer Training Gait Training Therapeutic Exercise Balance Retraining Post Op Education Discharge Planning Hot or Cold Pack Neuromuscular Re-ed Coordination Retraining Manual Therapy Other Recommendations and Next Treatment transfer/ gait training as augie Focus Recommendations To Nursing Amount of Assist Needed 2 Person Assist Discharge Recommendations PT Discharge Recommendations SNF Rehab
--- NOTE | 2019-01-25 15:23 | PT.IPTN ---
Current Diagnoses Infection and inflammatory reaction due to indwelling urethral catheter, initial encounter (01/23/19) Physical Therapy Treatment Note M2 PT-IP Current Condition Start: 01/23/19 08:12 Freq: NEEDED Status: Active Protocol: Document 01/23/19 12:00 RS (Rec: 01/23/19 12:15 RS [email or web address]) Physical Therapy Current Condition Current Condition Evaluation Date 01/23/19 Treatment Diagnosis weakness, debility Onset Date a few days ago M3 PT-IP Subjective Start: 01/23/19 08:12 Freq: NEEDED Status: Active Protocol: Document 01/25/19 12:00 [facility] (Rec: 01/25/19 15:23 HH [email or web address]) Subjective Physical Therapy Visit Type Type Treatment Note Visit Start Time 12:00 Visit Stop Time 12:15 Total Visit Minutes 15 Notes RN requested to assist pt back to bed from [facility] due to hypotension. Number of KNOT CUTTER Visits 0 Physical Therapy Visit Comments Patient Comments I feel dizzy Therapy Pain Assessment Pain When Pain Assessed At Rest Pain Present Pain Present Denied Pain M4 PT-IP Mobility and Gait Start: 01/23/19 08:12 Freq: NEEDED Status: Active Protocol: Document 01/25/19 12:00 [facility] (Rec: 01/25/19 15:23 HH [email or web address]) PT-Bed Mobility Assessment Sit to Supine Sit to Supine Moderate Assistance 2 Person Assistance Scooting Scooting Up and Down in Bed Contact Guard Assistance PT-Transfer Assessment Sit to and From Stand Sit to and from Stand Moderate Assistance 2 Person Assistance Equipment Transfer Assistive Device Front Wheeled Walker Transfers Transfer Destination Bed Bedside Commode Transfer Ability Level of Assist Minimal Assistance Use of Upper Extremities Comments Mobility Comments Pt got up from BSC and stood for 2 minutes for [employer] to clean up. Pt needed max cues to stand upright. pt then transferred himself back to bed. Max cues for FWW guidance , and mod A for sit to supine. Pt was able to scoot up and laterally with CGA. Gait Assessment Gait Gait Assistance Required: Minimum Assistance 1 Person Assist Distance (Feet) 3 Assistive Devices Assistive Device Front Wheeled Walker Gait Deviations General Gait Pattern Decreased Stride Length Decreased Feet Clearance Factors Limiting Gait Function Factors Limiting Gait Function Decreased Activity Tolerance Decreased Sensation Decreased Strength Limited Range of Motion Poor Balance Poor Safety Awareness Comments Gait Comments amb from BSC to bed with max cues to keep upright. Pt cont to show retropulsion. Stair Climbing Assessment Comments Stair Climbing Comments not safe to test this session M5 PT-IP Objective Assessments Start: 01/23/19 08:12 Freq: NEEDED Status: Active Protocol: Document 01/23/19 12:00 RS (Rec: 01/23/19 12:15 RS [email or web address]) Orientation Orientation/Cognition Level of Alertness Alert Orientation Name Age Birthday Month Date Year Day of Week Place Situation Language Function Ability No Deficits Noted Safety Awareness Understands Safety Issues Gross Range of Motion Upper Extremity ROM Assessment Within Functional Limits Lower Extremity ROM Assessment Within Functional Limits Strength Lower Extremity Strength Assessment Bilaterally Impaired Comments Strength Comments RLE grossly 2/5 LLE grossly 3+/5 M6 PT-IP Treatment Start: 01/23/19 08:12 Freq: NEEDED Status: Active Protocol: Document 01/23/19 12:00 RS (Rec: 01/23/19 12:15 RS [email or web address]) Physical Therapy Treatment Exercises Exercises Ankle Pumps Education Education Provided Safety M7 PT-IP Assessment and Plan Start: 01/23/19 08:12 Freq: NEEDED Status: Active Protocol: Document 01/25/19 12:00 [facility] (Rec: 01/25/19 15:23 HH [email or web address]) PT Summary Assessment and Plan Potential Rehabilitation Potential Good Status of Condition at Evaluation Evolving Summary Impairments Strength Balance Bed Mobility Transfers Gait Activity Tolerance Progress Towards Goals Progressing Toward Goals Assessment Summary pt's BP at 78/42 upon assessment but returned to 103 /70 in supine. Pt continues to need up to 2-person assist, continue to recommend pt transition to SNF rehab once medically ready. Goals Bed Mobility Goal Minimal Assistance Transfer Goal Minimal Assistance Front Wheeled Walker Gait Goal Minimal Assistance Front Wheel Walker Gait Distance 25 Days to Meet Goals 3 Frequency of Treatment Frequency Of Treatment Once a Day Treatment Plan Physical Therapy Treatment Plan Bed Mobility Training Transfer Training Gait Training Therapeutic Exercise Balance Retraining Post Op Education Discharge Planning Hot or Cold Pack Neuromuscular Re-ed Coordination Retraining Manual Therapy Other Recommendations and Next Treatment transfer/ gait training as augie Focus Recommendations To Nursing Amount of Assist Needed 2 Person Assist Discharge Recommendations PT Discharge Recommendations SNF Rehab
--- NOTE | 2019-01-25 20:21 | PM.PN.1 ---
Subjective Date Patient Seen: 01/25/19 Time Patient Seen: 20:21 Interval history: 78-year-old male admitted short within 24 hr of discharge with decreased mental status and confusion. Patient found to have UTI growing Enterococcus. But most recent admission patient did have a Harrison catheter in lieu of acute urinary retention. On 01/24/2019 patient was started on empiric therapy and tamsulosin. Progressing well. Mentation improved. Hemodynamically stable. Exam Vital Signs (past 8 hours): - 01/25/19 12:30 01/25/19 13:56 01/25/19 15:47 Temperature 97.9 F Pulse Rate 77 Respiratory Rate 18 Blood Pressure 74/47 L 103/62 101/63 Pulse Oximetry 98 01/25/19 18:07 01/25/19 19:51 Temperature 98.4 F Pulse Rate 75 Respiratory Rate 18 Blood Pressure 101/64 Pulse Oximetry 99 98 Oxygen Delivery Method Room Air Oxygen Flow Rate 0 Narrative Exam Narrative: No acute distress forgetful, follows commands, awake and alert breath sounds clear to auscultation bilaterally, no dyspnea or tachypnea S1-S2 right lower extremity lymphedema Harrison catheter in place Objective Labs Result Diagrams: 01/26/19 08:50 01/26/19 08:50 Assessment & Plan Assessment & Plan narrative: acute cystitis, associated with recent use of Harrison catheter urine culture positive for enterococcus species with sensitivity to amoxicillin, nitrofurantoin, and Levaquin - tolerating Augmentin, day 2 of 10 urinary retention, acute on chronic history of prostate cancer, status post prostatectomy - started on tamsulosin - Harrison catheter in place, to be discharged with Harrison catheter in to follow up with Urology chronic right lower extremity lymphedema with negative venous Doppler with most recent admission stool incontinence, resolved no further episodes patient contusions remains to be stable, potential discharge tomorrow, waiting placement. Quality VTE Deep Vein Thrombosis/Pulmonary Embolism Present on Admission: No
[2019-01-26 00:15] VITALS: BP 120/69; PULSE 70; RESP 18; TEMP 37.1; O2SAT 97
[2019-01-26 04:00] VITALS: BP 120/67; PULSE 68; RESP 15; TEMP 36.9; O2SAT 97
--- NOTE | 2019-01-26 07:08 | P.PN_ITS ---
Subjective Date Patient Seen: 01/26/19 Interval history: Jimi Montes is an 78-year-old male readmitted 1 day after discharge due to difficulty arousing and confusion. This time it appears he has UTI growing Enterococcus whereas previous admit urinalysis was normal. He had Harrison catheter on last admission due to acute urinary retention, discharged without Harrison catheter, then apparently needed catheter replaced in the ER on readmission. Patient appears to have improvement in alertness and mental status since his readmission. The patient is resting in bed comfortably and in no acute distress. He or she denies headache, ear pain, rhinitis, sore throat, cough, shortness of breath, chest pain, abdominal pain, nausea, vomiting, fever, chills, dysuria, diarrhea or constipation. He or she is voiding and eliminating without difficulty. He or she is up ambulating without or with assistance. Exam Vital Signs (past 8 hours): - 01/26/19 00:15 01/26/19 04:00 Temperature 98.8 F 98.4 F Pulse Rate 70 68 Respiratory Rate 18 15 Blood Pressure 120/69 120/67 Pulse Oximetry 97 97 Oxygen Delivery Method Room Air Oxygen Flow Rate 0 Narrative Exam Narrative: General: No acute distress, well-developed, well-nourished, appropriately interactive HEENT: Normocephalic, atraumatic. External ears without defect. Pupils equal, round, and reactive to light and accommodation. Anicteric sclerae, moist conjunctivae, and no lid lag. Oropharynx free of erythema and cobble stoning with moist mucosa. Neck: Supple with full range of motion. No jugular venous distension. No bruits. No lymphadenopathy or thyromegaly. Cardiovascular: Regular rate and rhythm without murmurs, rubs, or gallops appreciated Pulmonary: Clear to auscultation bilaterally without crackles, wheezes, or rhonchi. Normal respiratory effort with no use of accessory muscles. Abdomen: Bowel tones present. Soft, nontender, nondistended. No hepatos plenomegaly or masses appreciated. Extremities: No clubbing, cyanosis, or edema. Skin: Normal temperature, turgor, and texture; no rash, ulcers, or subcutaneous nodules appreciated. Neurological: Cranial nerves grossly intact. Normal muscle strength, tone, and bulk. Reflexes, coordination, and sensory function within normal limits. No known gait impairment. Psychiatric: Normal mood and affect. Alert and oriented to person, place, and time. Objective Labs Result Diagrams: 01/26/19 08:50 01/26/19 08:50 Assessment & Plan Assessment & Plan narrative: Patient is 78-year-old male readmitted 1 day after discharge due to difficulty arousing and confusion. This time it appears he has UTI growing Enterococcus whereas previous admit urinalysis was normal. He had Harrison catheter on last admission due to acute urinary retention, discharged without Harrison catheter, then apparently needed catheter replaced in the ER on readmission. Patient appears to have improvement in alertness and mental status since his readmission. He is complaining of stool incontinence. 1. Urinary tract infection, likely catheter associated -Urine culture positive Enterococcus, sensitive to amoxicillin, nitrofurantoin, Levaquin -Stopped Unasyn 1.5 g IV q.6 hours, and continuing Augmentin 875/125 mg b.i.d. for 10 day course to stop 01/31. 2. Acute on chronic urinary tension, present on admission. Stable. -Reportedly 700 cc retention last admit, seemed okay to discharge without Harrison catheter, then Harrison replaced in the ER due to unspecified reason but presumably acute retention. -Patient is status post prostatectomy for CA. -Started on tamsulosin 0.4 mg daily. -Maintain catheter with plans for outpatient urology follow-up in the next several weeks. 3. Acute encephalopathy, present on admission. Resolved. -Likely related to UTI or urinary retention 4. Chronic right leg lymphedema, present on admission. Stable. -Negative venous duplex ultrasound last admit 5. Stool incontinence without actual diarrhea. -C. diff negative. Disposition: Quality VTE Deep Vein Thrombosis/Pulmonary Embolism Present on Admission: No
[2019-01-26 08:05] VITALS: BP 110/68; PULSE 67; RESP 18; TEMP 36.6; O2SAT 95
[2019-01-26] MEDS: TAMSULOSIN 0.4 MG CAPSULE PO (08:19)
[2019-01-26] MEDS: CYANOCOBALAMIN (VITAMIN B-12) 500 MCG TABLET PO (08:19)
[2019-01-26] MEDS: AMOXICILLIN/CLAV 875/125 MG 1 TAB PO (08:19)
[2019-01-26] MEDS: CHOLECALCIFEROL (VITAMIN D3) 1,000 UNIT TABLET 1000 UNIT PO (08:19)
[2019-01-26] MEDS: ENOXAPARIN 40 MG/0.4 ML SYRINGE SUBCUT (08:19)
[2019-01-26] MEDS: ASPIRIN EC 81 MG TABLET PO (08:19)
[2019-01-26] MEDS: ZINC OXIDE OINT 60 GM TOP (08:21)
[2019-01-26] MEDS: KETOCONAZOLE 2% CREAM 15 GM TOP (08:22)
[2019-01-26] MEDS: SODIUM CHLORIDE 0.9% FLUSH 10 ML IV (08:22)
[2019-01-26 09:25] LABS: Add Manual Diff / Slide Review NO; Basophils Absolute Auto 0 /uL (0-100); Basophils Percent Auto 0.7 % (0-2); Eosinophils Absolute Auto 300 /uL (0-450); Eosinophils Percent Auto 5.6 % (2-4); Hematocrit 36.8 % (41-53); Hemoglobin 12.1 g/dL (13.5-17.5); Lymphocytes Absolute Auto 1500 /uL (1100-4500); Mean Corpuscular HGB Conc 32.9 % (30-36); Mean Corpuscular Hemoglobin 29.8 PG (26-34); Mean Corpuscular Volume 90.6 fL (80-100); Monocytes Absolute Auto 500 /uL (0-900); Monocytes Percent Auto 9.7 % (3-14); Neutrophils Absolute Auto 2500 /uL (1500-7000); Platelet Count 183 X10^3/uL (150-400); Red Blood Cell Count 4.07 X10^6/uL (4.5-5.9); Red Cell Distribution Width 13.6 % (11.6-14.8); White Blood Cell Count 4.7 X10^3/uL (4.5-11.0)
[2019-01-26 09:44] LABS: Alanine Aminotransferase 38 IU/L (21-72); Albumin 3.2 g/dL (3.5-5.0); Albumin Globulin Ratio 1.1 (1.0-2.8); Alkaline Phosphatase 89 U/L (38-126); Aspartate Aminotransferase 29 IU/L (17-59); Bilirubin Total 0.4 mg/dL (0.2-1.3); Blood Urea Nitrogen 16 mg/dL (9-20); Calcium 8.6 mg/dL (8.4-10.2); Carbon Dioxide 26 mmol/L (22-32); Chloride 106 mmol/L (98-107); Estimated Glomerular Filt Rate > 60.0 mL/min (>60); Globulin 2.9 g/dL (1.7-4.1); Glucose 100 mg/dL (80-110); HEMOLYSIS < 15 (0-50); Magnesium 1.9 mg/dL (1.6-2.3); Potassium 3.5 mmol/L (3.4-5.1); Sodium 139 mmol/L (137-145); Total Protein 6.1 g/dL (6.3-8.2)
--- NOTE | 2019-01-26 10:31 | P.DS_ITS ---
History of Present Illness Date Patient Seen: 01/26/19 Chief complaint: Lethargic Narrative: Written by Dr. Cardoso: 78-year-old patient of Dr. Alarcon's who was recently hospitalized at [facility] from January 18, 2019 to January 22, 2019 for acute encephalopathy. The cause of his encephalopathy was unclear. His head CT was negative. No evidence of infection was found. MRI of the brain showed chronic microvascular ischemic changes. There was no acute stroke. He was discharged back to the assisted living earlier this afternoon. He was complaining of fatigue and fell asleep as soon as he returned back to the assisted living. The assisted living staff was not able to wake him up at dinner time. He was noticed to be unresponsive. He was subsequently brought back to the emergency room. Noncontrast head CT did not reveal acute intracranial bleed. Urinalysis showed 5-10 WBCs. He received 1 g of Rocephin for treating possible urinary tract infection. He was admitted to the medicine floor. Currently patient is alert and orientated. He seemed to be back to his baseline. His said he was not able to sleep well last night when the nursing staff was trying to help him have a bowel movement. Discharge Providers Date of admission: 01/23/19 13:23 Discharge Date: 01/26/19 Primary care physician: Bill Alarcon MD Consults: 01/23/19 00:04 Consult to Dietitian, Adult Routine Comment: Reason For Exam: MNA score 11 01/23/19 00:21 Consult to Occupational Therapy Evaluate & Treat Comment: Physician Instructions: d/c needs Consult to Physical Therapy Evaluate & Treat Comment: Physician Instructions: Evaluate and Treat Discharge provider: Kalina Duff DO Summary Discharge Diagnosis: 1. Catheter associated urinary tract infection, present on admission. Resolving. 2. Acute on chronic urinary tension, present on admission. Stable. 3. Acute encephalopathy, present on admission. Resolved. 4. Chronic right leg lymphedema, present on admission. Stable. 5. Stool incontinence without actual diarrhea. 6. Physical deconditioning and generalized weakness, present on admission. Ongoing. Hospital Course: Jimi Montes is an 78-year-old male readmitted 1 day after discharge due to difficulty arousing and confusion. This time it appears he has UTI growing Enterococcus whereas previous admit urinalysis was normal. He had Harrison catheter on last admission due to acute urinary retention, discharged without Harrison catheter, then apparently needed catheter replaced in the ER on readmission. Patient appears to have improvement in alertness and mental status since his readmission. He is complaining of stool incontinence. 1. Catheter associated urinary tract infection, present on admission. Resolving. -Urine culture positive Enterococcus, sensitive to amoxicillin, nitrofurantoin, Levaquin -Stopped Unasyn 1.5 g IV q.6 hours, and continuing Augmentin 875/125 mg b.i.d. for 10 day course to stop on 01/31. 2. Acute on chronic urinary tension, present on admission. Stable. -Reportedly 700 cc retention last admit, seemed okay to discharge without Harrison catheter, then Harrison replaced in the ER due to unspecified reason but presumably acute retention. -Patient is status post prostatectomy for CA. -Started and continued on tamsulosin 0.4 mg daily. -Maintain catheter with plans for outpatient urology follow-up in the next several weeks. 3. Acute encephalopathy, present on admission. Resolved. -Secondary to UTI or urinary retention. 4. Chronic right leg lymphedema, present on admission. Stable. -Negative venous duplex ultrasound last admit. Keep compression stockings on 75% of 24 hour period. 5. Stool incontinence without actual diarrhea. -C. diff negative. 6. Physical deconditioning and generalized weakness, present on admission. Ongoing. -Continued physical therapy and occupational therapy daily. Discharged to chcf facility for physical rehabilitation. Status at Discharge Cognitive/behavioral status at discharge: oriented Functional status at discharge: uses cane/walker Overall status at discharge: patient is not back to baseline Exam Vital Signs (past 8 hours): - 01/26/19 04:00 01/26/19 08:05 Temperature 98.4 F 97.8 F Pulse Rate 68 67 Respiratory Rate 15 18 Blood Pressure 120/67 110/68 Pulse Oximetry 97 95 Oxygen Delivery Method Room Air Oxygen Flow Rate 0 Narrative Exam Narrative: General: Elderly male sitting in bedside chair and in no acute distress, well- developed, well-nourished, appropriately interactive. HEENT: Normocephalic, atraumatic. External ears without defect. Pupils equal, r ound, and reactive to light and accommodation. Anicteric sclerae, moist conjunctivae, and no lid lag. Neck: Supple with full range of motion. No lymphadenopathy or thyromegaly. Cardiovascular: Regular rate and rhythm without murmurs, rubs, or gallops appreciated Pulmonary: Clear to auscultation bilaterally without crackles, wheezes, or rhonchi. Normal respiratory effort with no use of accessory muscles. Abdomen: Soft, bowel sounds present, non-tender, non-distended. No hepatosplenomegaly or masses appreciated. Extremities: No clubbing, cyanosis, or edema. Skin: Normal temperature, turgor, and texture; no rash, ulcers, or subcutaneous nodules appreciated. Neurological: Cranial nerves grossly intact. Generalized weakness and physical deconditioning. Psychiatric: Slightly anxious. No longer confused. Mild cognitive impairment at baseline possible early dementia. Objective Labs Result Diagrams: 01/26/19 08:50 01/26/19 08:50 Labs: Laboratory Results - last 24 hr 01/26/19 01/26/19 08:50 08:50 WBC 4.7 RBC 4.07 L Hgb 12.1 L Hct 36.8 L MCV 90.6 MCH 29.8 MCHC 32.9 RDW 13.6 Plt Count 183 Neut % (Auto) 53.0 Lymph % (Auto) 31.0 Treasure % (Auto) 9.7 Eos % (Auto) 5.6 H Baso % (Auto) 0.7 Neut # (Auto) 2500 Lymph # (Auto) 1500 Treasure # (Auto) 500 Eos # (Auto) 300 Baso # (Auto) 0 Sodium 139 Potassium 3.5 Chloride 106 Carbon Dioxide 26 BUN 16 Creatinine 0.80 Estimated GFR > 60.0 BUN/Creatinine Ratio 20.0 Glucose 100 Calcium 8.6 Magnesium 1.9 Total Bilirubin 0.4 AST 29 ALT 38 Alkaline Phosphatase 89 Total Protein 6.1 L Albumin 3.2 L Globulin 2.9 Albumin/Globulin Ratio 1.1 Discharge Plan Discharge Plan Patient Disposition: SNF Transfer to: [facility] Under care of provider: Dr. Ray Transportation: Facility vehicle Discharge comment: You're being discharged to [facility] for chcf and physical rehabilitation. You need to follow up with Urology in the next 1-2 weeks regarding urinary retention and possible removal of Harrison catheter. You have 4 days and 1 dose tonight total of antibiotics to complete the course for catheter associated urinary tract infection. I certify the postop hospital chcf care is medically necessary on a continuing basis for any conditions for which he/ she received care during this hospitalization.: Yes The receiving facility has agreed to accept transfer and provide medical treatment.: Yes Discharge Med Rec/Prescriptions Prescriptions: New tamsulosin [Flomax] 0.4 mg Capsule 0.4 mg PO DAILY Qty: 30 RF: 0 amoxicillin-pot clavulanate [Augmentin] 875-125 mg Tablet 1 tab PO BID Qty: 9 RF: 0 Continued aspirin 81 mg Tablet,Delayed Release (Dr/Ec) 81 mg PO DAILY RF: 0 cyanocobalamin (vitamin B-12) [Vitamin B-12] 500 mcg Tablet 500 mcg PO DAILY RF: 0 cholecalciferol (vitamin D3) [Vitamin D3] 1,000 unit Tablet 1,000 unit PO DAILY RF: 0 zinc oxide 15 % cream See Rx Instructions .ROUTE .COMPLEX Qty: 99 RF: 0 ketoconazole 2 % cream See Rx Instructions .ROUTE .COMPLEX Qty: 30 RF: 0 Follow up/Referrals: Bill Alarcon MD [Primary Care Provider] - Discharge Health Status Multidrug resistant organism: No MDRO Provider Discharge Instructions Diet: Diet as Tolerated and Regular Activity: Activity as tolerated with FWW and 2 person assist. Catheter: 2-way [facility] Rehab type: Physical therapy and Occupational therapy Visit Report/Discharge Packet Instructions: DI for Dehydration -- Adult Discharge Data Primary Care Provider: Bill Alarcon V Attending Provider: Autumn Benavides Admit Date/Time: 01/23/19 13:23 Quality VTE Deep Vein Thrombosis/Pulmonary Embolism Present on Admission: No
--- NOTE | 2019-01-26 11:23 | PT.IPTN ---
Current Diagnoses Infection and inflammatory reaction due to indwelling urethral catheter, initial encounter (01/23/19) Physical Therapy Treatment Note M2 PT-IP Current Condition Start: 01/23/19 08:12 Freq: NEEDED Status: Active Protocol: Document 01/23/19 12:00 RS (Rec: 01/23/19 12:15 RS [email or web address]) Physical Therapy Current Condition Current Condition Evaluation Date 01/23/19 Treatment Diagnosis weakness, debility Onset Date a few days ago M3 PT-IP Subjective Start: 01/23/19 08:12 Freq: NEEDED Status: Active Protocol: Document 01/26/19 10:15 HH (Rec: 01/26/19 11:23 HH [id number]) Subjective Physical Therapy Visit Type Type Treatment Note Visit Start Time 10:15 Visit Stop Time 10:45 Total Visit Minutes 30 Notes Per RN, pt cont presented retropulsion upon standing for brief change. Number of TIER OVER Visits 0 Physical Therapy Visit Comments Patient Comments i feel good Therapy Pain Assessment Pain Present Pain Present Denied Pain M4 PT-IP Mobility and Gait Start: 01/23/19 08:12 Freq: NEEDED Status: Active Protocol: Document 01/26/19 10:15 HH (Rec: 01/26/19 11:23 HH [id number]) PT-Bed Mobility Assessment Scooting Scooting Up and Down in Bed Contact Guard Assistance PT-Transfer Assessment Sit to and From Stand Sit to and from Stand Contact Guard Assistance Minimal Assistance 1 Person Assistance Use of Upper Extremities Transfers Transfer Destination Bed Chair Transfer Ability Level of Assist Contact Guard Assistance Minimal Assistance 1 Person Assistance Use of Upper Extremities Comments Mobility Comments Pt got up from BSC and amb to sink counter to wash up. Pt needed min A at the end range of sit to stand. He was able to stand for 8 mins infront of counter and brush teeth and comb hair with 1 UE support on counter CGA. Pt did have excessive sways but no signs of LOB. Gait Assessment Gait Gait Assistance Required: Contact Guard Assist Minimum Assistance 1 Person Assist Distance (Feet) 100 Assistive Devices Assistive Device Front Wheeled Walker Gait Deviations General Gait Pattern Decreased Stride Length Decreased Feet Clearance Factors Limiting Gait Function Factors Limiting Gait Function Decreased Activity Tolerance Decreased Sensation Decreased Strength Limited Range of Motion Poor Balance Poor Safety Awareness Comments Gait Comments amb from BSC to sink counter and to hallway, then returned to BSC. Pt needed CGA/min A and cues occasionally to prevent retropulsion. Pt denies fatigue/ acute distress . Stair Climbing Assessment Comments Stair Climbing Comments not safe to test this session M5 PT-IP Objective Assessments Start: 01/23/19 08:12 Freq: NEEDED Status: Active Protocol: Document 01/23/19 12:00 RS (Rec: 01/23/19 12:15 RS [email or web address]) Orientation Orientation/Cognition Level of Alertness Alert Orientation Name Age Birthday Month Date Year Day of Week Place Situation Language Function Ability No Deficits Noted Safety Awareness Understands Safety Issues Gross Range of Motion Upper Extremity ROM Assessment Within Functional Limits Lower Extremity ROM Assessment Within Functional Limits Strength Lower Extremity Strength Assessment Bilaterally Impaired Comments Strength Comments RLE grossly 2/5 LLE grossly 3+/5 M6 PT-IP Treatment Start: 01/23/19 08:12 Freq: NEEDED Status: Active Protocol: Document 01/23/19 12:00 RS (Rec: 01/23/19 12:15 RS [email or web address]) Physical Therapy Treatment Exercises Exercises Ankle Pumps Education Education Provided Safety M7 PT-IP Assessment and Plan Start: 01/23/19 08:12 Freq: NEEDED Status: Active Protocol: Document 01/26/19 10:15 HH (Rec: 01/26/19 11:23 HH [id number]) PT Summary Assessment and Plan Potential Rehabilitation Potential Good Status of Condition at Evaluation Evolving Summary Impairments Strength Balance Bed Mobility Transfers Gait Activity Tolerance Progress Towards Goals Progressing Toward Goals Assessment Summary Pt BP before and post session maintained 80-90s/50s. Per RN, pt has low BPs since this morning but asymptomatic. Pt showed significant rehab progress today with improved amb distance to 100ft with FWW , CGA/min A for transfer and static standing. Pt will be d/ c to SNF today to cont improve overall mobility. Goals Bed Mobility Goal Standby Assistance Transfer Goal Standby Assistance Front Wheeled Walker Gait Goal Standby Assistance Gait Distance 200 Days to Meet Goals 3 Frequency of Treatment Frequency Of Treatment Once a Day Treatment Plan Physical Therapy Treatment Plan Bed Mobility Training Transfer Training Gait Training Therapeutic Exercise Balance Retraining Post Op Education Discharge Planning Hot or Cold Pack Neuromuscular Re-ed Coordination Retraining Manual Therapy Other Recommendations and Next Treatment transfer/ gait training as augie Focus Recommendations To Nursing Amount of Assist Needed 2 Person Assist Discharge Recommendations PT Discharge Recommendations SNF Rehab
[2019-01-26 11:40] VITALS: BP 87/52; PULSE 78; RESP 16; TEMP 36.6; O2SAT 98
[2019-01-26 14:30] VITALS: BP 109/64; PULSE 77
--- NOTE | 2019-01-26 14:37 | CM.DPNOTE ---
DC Note: DC in place. Met w/pt and his Berna, reviewed and discussed DCP: [facility] via w/c. Pt somewhat concerned about the DC today but unable to clearly state why (?) He explained last time he was DC to [facility] he came right back. 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 strengthening and addtl. stabilization before return to home. Pt and spouse inevitably agreeable to DC to [facility], IMM reviewed and both pt and spouse state they understand but then ask why they need to sign again after their signature is already on the form ? (from pt's admission). Verbal agreement documented. Faxed completed PAS[facility] and signed med list to [facility], transportation arranged for approx [phone] so that spouse can be present after her afternoon Dr montalvo. P: DC to [facility] via w/c. JIMBO Merlos made aware of above. JERICHO Mae
--- NOTE | 2019-01-26 15:13 | PC.NURSE ---
Report called to Lydia RN at [facility]. Opportunity for questions provided. Paperwork packet ready. IV dc'd. Patient and his aware of plan for poultry picker and transfer and agreeable. Glasses and razor found in patient's bedside table drawer. Patient's belongings now at bedside, awaiting poultry picker by [facility] transport. Patient and Lydia aware that patient is to have follow up appointment with urologist in 1-[address] and secure to leg, draining clear yellow urine. Patient denies pain.
== END 2019-01-26 15:35 | DRG 699 ==
LOC: ED 21:17 → AC 22:09
PROVIDERS: Emergency Medicine; Internal Medicine; Admitting Provider Internal Medicine; Emergency Provider Emergency Medicine; PCP Internal Medicine; Visit Provider Internal Medicine
DX: T83.511A Infection and inflammatory reaction due to indwelling urethral catheter, initial encounter (principal); G93.49 Other encephalopathy; N39.0 Urinary tract infection, site not specified; B95.2 Enterococcus as the cause of diseases classified elsewhere; R33.9 Retention of urine, unspecified; I10 Essential (primary) hypertension; I89.0 Lymphedema, not elsewhere classified; R53.1 Weakness; R15.9 Full incontinence of feces
CPT/HCPCS: 36415; 36591; 36600; 51701; 70450; 70553; 71045; 74018; 80048; 80053; 80305; 80320; 80329; 81001; 81003; 82550; 82553; 82607; 82805; 83605; 83735; 84145; 84146; 84443; 84484; 85025; 85610; 85730; 87077; 87086; 87186; 87493; 92526; 92610; 93005; 93010; 93041; 93971; 94762; 96361; 96365; 97110; 97116; 97162; 97165; 97530; 97535; 99284; 99285; 99291; 99292; G0378; A9579; G0480; J0295; J1650; J1940

== ENCOUNTER 2019-02-27 15:53 | Emergency (ER) | payer MEDICARE, SELFPAY ==
[2019-01-23 00:02] VITALS: BMI 23.6
[2019-02-27 16:01] VITALS: BP 120/72; PULSE 78; RESP 18; TEMP 36.6; O2SAT 97
[2019-02-27 16:04] VITALS: BP 120/72; PULSE 78; RESP 18; TEMP 36.6; O2SAT 97
--- NOTE | 2019-02-27 16:07 | ED.FALL ---
HPI - Fall <Grace Kahn PA-C - Last Filed: 02/27/19 21:51> General Chief Complaint: Fall Stated Complaint: FALL PAIN Time Seen by Provider: 02/27/19 16:02 Source: patient Mode of arrival: ambulatory Limitations: no limitations History of Present Illness HPI Narrative: This 78-year-old states that he tripped and fell last night, either caught his cast show on the metal threshold of the door or just tripped because of the shoe. He states that he fell sideways and landed with his left side on the edge of a vanity and has had pain in the left lower ribs/flank area since. He states that he has tenderness with twisting, with belching or coughing or anything that causes him to jolt. He denies feeling short of breath or wheeze. He denies any neck or back pain. He denies hitting his head or LOC, denies any other injury. He denies any hematuria, requested assessment at his assisted living facility so was sent over. Paperwork that accompanies him states that they did not note any new changes Related Data Home Medications Medication Instructions Recorded Confirmed aspirin 81 mg PO DAILY 12/15/18 01/22/19 cholecalciferol (vitamin D3) 1,000 unit PO DAILY 12/15/18 01/22/19 [Vitamin D3] cyanocobalamin (vitamin B-12) 500 mcg PO DAILY 12/15/18 01/22/19 [Vitamin B-12] Previous Rx's Medication Instructions Recorded ketoconazole See Rx Instructions .ROUTE 01/02/19 .COMPLEX #30 gram zinc oxide See Rx Instructions .ROUTE 01/02/19 .COMPLEX #99 gram tamsulosin [Flomax] 0.4 mg PO DAILY #30 cap 01/26/19 acetaminophen [Tylenol Arthritis 650 mg PO Q8H #60 tab 02/27/19 Pain] lidocaine [Lidoderm] 2 patch TOP DAILY #30 each 02/27/19 Allergies Allergy/AdvReac Type Severity Reaction Status Date / Time hydromorphone [From Dilaudid] Allergy Verified 01/22/19 18:19 Review of Systems <Grace Kahn PA-C - Last Filed: 02/27/19 21:51> Review of Systems ROS Unobtainable: All systems reviewed & are unremarkable except as noted in HPI and below Exam <Grace Kahn PA-C - Last Filed: 02/27/19 21:51> Narrative Exam Narrative: GENERAL APPEARANCE: Patient sitting comfortably, in no distress. LUNGS: Clear to auscultation bilaterally. CHEST: No ecchymoses or abrasions over the chest or ribs. Moderate tenderness over the left inferior posterior and posterior lateral ribs especially at 10 and 11. HEART: Rate and rhythm regular without murmur, normal S1 and S2, no S3 or S4. ABDOMEN: Soft, nontender, nondistended, +bowel sounds x4 quadrants EXTREMITIES: Right lower extremity market edema noted with venous stasis changes, moderate edema on the left Initial Vital Signs Initial Vital Signs: Vital Signs Temperature 97.8 F 02/27/19 16:01 Pulse Rate 78 02/27/19 16:01 Respiratory Rate 18 02/27/19 16:01 Blood Pressure 120/72 02/27/19 16:01 Pulse Oximetry 97 02/27/19 16:01 <Nish Gentile DO - Last Filed: 02/28/19 07:13> Initial Vital Signs Initial Vital Signs: Vital Signs Temperature 97.8 F 02/27/19 16:01 Pulse Rate 78 02/27/19 16:01 Respiratory Rate 18 02/27/19 16:01 Blood Pressure 120/72 02/27/19 16:01 Pulse Oximetry 97 02/27/19 16:01 PFSH <Grace Kahn PA-C - Last Filed: 02/27/19 21:51> Medical History (Updated 02/27/19 @ 21:50 by Grace Kahn PA-C) Candidiasis of scrotum (Chronic) HTN (hypertension) (Chronic) History of prostate cancer (Chronic) Incontinence (Chronic) Surgical History History of prostatectomy (Resolved) History of squamous cell carcinoma excision (Resolved) Family History Other Family history non-contributory Social History household members: spouse and other Smoking Status: Never smoker alcohol intake: current Social History household members: spouse and other Smoking Status: Never smoker alcohol intake: current Course <Grace Kahn PA-C - Last Filed: 02/27/19 21:51> Additional Information: Patient appears comfortable during his stay. He states that he takes Tylenol occasionally but did not want other pain medication. Incentive spirometry training given by respiratory therapy. Advised supportive care with pain management and spirometry, but needs to return if any acute respiratory symptoms and he is agreeable. Advised follow-up with PCP in the next few days. Given prescriptions to have filled at his facility. Orders Ordered: Discontinued Medications Acetaminophen (Tylenol) 650 mg PO NOW ONE Stop: 02/27/19 16:18 Last Admin: 02/27/19 16:43 Dose: 650 mg Vital Signs - 8 hr 02/27/19 16:01 02/27/19 16:04 02/27/19 17:30 Temperature 97.8 F 97.8 F Pulse Rate 78 78 70 Respiratory Rate 18 18 16 Blood Pressure 120/72 120/72 Blood Pressure [Right Arm] 127/70 Pulse Oximetry 97 97 100 02/27/19 18:01 Temperature Pulse Rate 68 Respiratory Rate 16 Blood Pressure 122/74 Blood Pressure [Right Arm] Pulse Oximetry 100 <Nish Gentile DO - Last Filed: 02/28/19 07:13> Orders Ordered: Discontinued Medications Acetaminophen (Tylenol) 650 mg PO NOW ONE Stop: 02/27/19 16:18 Last Admin: 02/27/19 16:43 Dose: 650 mg Vital Signs - 8 hr 02/27/19 16:01 02/27/19 16:04 02/27/19 17:30 Temperature 97.8 F 97.8 F Pulse Rate 78 78 70 Respiratory Rate 18 18 16 Blood Pressure 120/72 120/72 Blood Pressure [Right Arm] 127/70 Pulse Oximetry 97 97 100 02/27/19 18:01 Temperature Pulse Rate 68 Respiratory Rate 16 Blood Pressure 122/74 Blood Pressure [Right Arm] Pulse Oximetry 100 MDM - Fall <Grace Kahn PA-C - Last Filed: 02/27/19 21:51> Imaging Data ribs: Radiologist's impression: [address] [address] XRay Report Signed Patient: Jimi Mnotes CMR#: [id number] : 8Acct:[id number] Age/Sex: 78 / MDate of Service: 02/27/19 Loc: ED Accession Number: [id number] Procedure: XR ribs LT min 3V w CXR1V Ordering Provider: Grace Kahn P.A-C PROCEDURE: XR RIBS LT MIN 3V W CXR1V INDICATIONS: RIB PAIN AFTER FALL TECHNIQUE: 2 views of the left ribs were acquired, along with a single view chest. COMPARISON: None. FINDINGS: Surgical changes and devices: None. Bones and chest wall: Slightly displaced left posterior lateral ninth and 10th rib fractures are seen.. No suspicious bony lesions. Overlying soft tissues appear unremarkable. Lungs and pleura: No pleural effusions or pneumothorax. Left basilar atelectasis is noted. Mediastinum: Mediastinal contours appear normal. Heart size is normal. IMPRESSION: Slightly displaced left posterior lateral 10th and ninth rib fractures. Left basilar atelectasis. No focal infiltrate or pneumothorax. Dictated by: Dominguez Yen M.D. on 02/27/2019 at 16:45 Approved by: Dominguez Yen M.D. on 02/27/2019 at 16:46 Discharge Plan Departure Patient Disposition: Home Clinical Impression: Fracture, ribs Qualifiers: Encounter type: initial encounter Rib fracture type: multiple ribs Fracture type: closed Laterality: left Qualified Code(s): S22.42XA - Multiple fractures of ribs, left side, initial encounter for closed fracture Discharge Date/Time: 02/27/19 18:02 Interventions: ED Discharge Assessment Last Done: 02/27/19 18:01 Instructions: DI for Rib Fracture Activity Restrictions/Additional Instructions: You have 2 ribs on the left side where you are hurting that are broken (slightly out of place). As long as you are breathing okay, you do not need to be in the hospital for this, but be sure to use the device that the respiratory therapist showed you at least several times daily to make sure that you are expanding her lungs well and taking deep breaths. You can hug a pillow to your side the to help with the pain. I have given you a prescription for some topical pain patches and long-acting Tylenol to help with the pain. please give these to your facility this evening so they can order them for you. please follow-up with Dr. Alarcon's office this week (you should call 1st thing in the morning for an appointment and let them were seen in the emergency room with broken ribs). You should return right away if you have any acutely worsening symptoms such as more severe pain or difficulty breathing. Gentle activity is okay as tolerated but avoid activities that increase your pain. Prescriptions: New acetaminophen [Tylenol Arthritis Pain] 650 mg tablet extended release 650 mg PO Q8H Qty: 60 RF: 0 lidocaine [Lidoderm] 5 % adhesive patch,medicated 2 patch TOP DAILY Qty: 30 RF: 0 No Action aspirin 81 mg Tablet,Delayed Release (Dr/Ec) 81 mg PO DAILY RF: 0 cyanocobalamin (vitamin B-12) [Vitamin B-12] 500 mcg Tablet 500 mcg PO DAILY RF: 0 cholecalciferol (vitamin D3) [Vitamin D3] 1,000 unit Tablet 1,000 unit PO DAILY RF: 0 zinc oxide 15 % cream See Rx Instructions .ROUTE .COMPLEX Qty: 99 RF: 0 ketoconazole 2 % cream See Rx Instructions .ROUTE .COMPLEX Qty: 30 RF: 0 tamsulosin [Flomax] 0.4 mg Capsule 0.4 mg PO DAILY Qty: 30 RF: 0 Referrals: Bill Alarcon MD [Primary Care Provider] - <Nish Gentile DO - Last Filed: 02/28/19 07:13> Cosign ED Attending Cosemileeature Attestation: I was available for consultation during this patient's emergency department encounter
--- NOTE | 2019-02-27 16:17 | DI.RAD.S_ITS ---
PROCEDURE: XR RIBS LT MIN 3V W CXR1V INDICATIONS: RIB PAIN AFTER FALL TECHNIQUE: 2 views of the left ribs were acquired, along with a single view chest. COMPARISON: None. FINDINGS: Surgical changes and devices: None. Bones and chest wall: Slightly displaced left posterior lateral ninth and 10th rib fractures are seen.. No suspicious bony lesions. Overlying soft tissues appear unremarkable. Lungs and pleura: No pleural effusions or pneumothorax. Left basilar atelectasis is noted. Mediastinum: Mediastinal contours appear normal. Heart size is normal. IMPRESSION: Slightly displaced left posterior lateral 10th and ninth rib fractures. Left basilar atelectasis. No focal infiltrate or pneumothorax. Dictated by: Dominguez Yen M.D. on 02/27/2019 at 16:45 Approved by: Dominguez Yen M.D. on 02/27/2019 at 16:46
[2019-02-27] MEDS: ACETAMINOPHEN 325 MG TABLET 650 MG PO (16:43)
[2019-02-27 17:30] VITALS: BP 127/70; PULSE 70; RESP 16; O2SAT 100
[2019-02-27 18:01] VITALS: BP 122/74; PULSE 68; RESP 16; O2SAT 100
== END 2019-02-27 18:02 | disposition home or self-care (01) ==
PROVIDERS: Emergency Provider Internal Medicine; PCP Internal Medicine
DX: S22.42XA Multiple fractures of ribs, left side, initial encounter for closed fracture (principal); W19.XXXA Unspecified fall, initial encounter
CPT/HCPCS: 71101; 99282; 99283

== ENCOUNTER → 2019-03-23 07:46 | Outpatient (REF) | payer MEDICARE, SELFPAY ==
[2019-01-23 00:02] VITALS: BMI 23.6
[2019-03-23 08:28] LABS: Appearance Urine UA CLEAR; Bilirubin Urine UA NEGATIVE (NEGATIVE); Color Urine UA YELLOW; Glucose Urine UA NEGATIVE (Negative); Ketones Urine UA NEGATIVE (NEGATIVE); Leukocyte Esterase Urine UA NEGATIVE (NEGATIVE); Nitrite Urine UA NEGATIVE (Negative); Occult Blood Urine UA TRACE-LYSED (Negative); Protein Urine UA NEGATIVE (Negative); Specific Gravity Urine UA >=1.030 (1.000-1.035); Urobilinogen Urine UA 0.2 E.U./dL (0.2); pH Urine UA 5.5 (4.5-8.0)
[2019-03-23 08:56] LABS: Bacteria Urine Few (2-10); Calcium Oxalate Crystals Urine Few; RBC Urine 1-5/HPF (0-5/HPF); WBC Urine 0-1/HPF (0-5/HPF)
[2019-03-23 08:57] LABS: Culture Indicated Urine Cult Not Indicated
== END ==
LOC: LAB 07:46
PROVIDERS: PCP Internal Medicine; Visit Provider Internal Medicine
DX: N39.0 Urinary tract infection, site not specified (principal)
CPT/HCPCS: 81001

== ENCOUNTER 2019-03-31 04:07 | Emergency (ER) | payer MEDICARE, SELFPAY ==
[2019-01-23 00:02] VITALS: BMI 23.6
--- NOTE | 2019-03-31 04:18 | DI.RAD.S_ITS ---
PROCEDURE: XR HIP W PEL IF DONE RT 2V INDICATIONS: fall, pain TECHNIQUE: AP pelvis with lateral view(s) of the right hip(s). COMPARISON: None. FINDINGS: Bones: No fractures or dislocations. Pelvic ring appears intact. No suspicious bony lesions. There is hip mild joint space narrowing bilaterally. Soft tissues: The visualized bowel gas pattern is normal. No suspicious soft tissue calcifications. There is scattered soft tissue vascular calcifications and surgical clips within the right hemipelvis. IMPRESSION: Mild bilateral hip osteoarthritis. No acute radiographic findings. If there is continued pain, followup exam or additional imaging such as MRI or CT could be performed for further assessment. Dictated by: Tiesha Bolden M.D. on 03/31/2019 at 9:14 Approved by: Tiesha Bolden M.D. on 03/31/2019 at 9:15
[2019-03-31 04:27] VITALS: BP 118/78; PULSE 80; RESP 18; TEMP 36.2; O2SAT 95
--- NOTE | 2019-03-31 04:46 | ED.LOWEXIN ---
HPI - Extremity Injury (Lower) General Chief Complaint: Extremity Injury, Lower Stated Complaint: fell about 5-6 hours ago Time Seen by Provider: 03/31/19 04:18 Source: patient and other (weekend caregiver) Mode of arrival: wheelchair Limitations: no limitations History of Present Illness HPI Narrative: Patient is an year old male who presents after a ground level fall. He lives at assisted living facility. He typically gets around by wheelchair or walker. His right leg has lymphedema is difficult for him to get around as though he is ambulatory. At around 10:45 p.m. last evening caregiver found him on the ground. No head injury no loss of consciousness he denies any pain. however this morning he was a little bit more difficult arouse and they wanted him evaluated. He is awake alert oriented has absolutely no complaints. Related Data Home Medications Medication Instructions Recorded Confirmed aspirin 81 mg PO DAILY 12/15/18 01/22/19 cholecalciferol (vitamin D3) 1,000 unit PO DAILY 12/15/18 01/22/19 [Vitamin D3] cyanocobalamin (vitamin B-12) 500 mcg PO DAILY 12/15/18 01/22/19 [Vitamin B-12] Previous Rx's Medication Instructions Recorded ketoconazole See Rx Instructions .ROUTE 01/02/19 .COMPLEX #30 gram zinc oxide See Rx Instructions .ROUTE 01/02/19 .COMPLEX #99 gram tamsulosin [Flomax] 0.4 mg PO DAILY #30 cap 01/26/19 acetaminophen [Tylenol Arthritis 650 mg PO Q8H #60 tab 02/27/19 Pain] lidocaine [Lidoderm] 2 patch TOP DAILY #30 each 02/27/19 Allergies Allergy/AdvReac Type Severity Reaction Status Date / Time hydromorphone [From Dilaudid] Allergy Verified 01/22/19 18:19 Review of Systems Review of Systems GENERAL: Denies chills, fatigue, malaise, fever, sweats, travel HEENT: Denies sinus pain, ear pain, sore throat, difficulty swallowing, neck pain RESPIRATORY: Denies dyspnea, cough, wheezing, hemoptysis, sputum. CARDIOVASCULAR: Denies chest pain, palpitations, orthopnea, edema GASTROINTESTINAL: Denies nausea, vomiting, abdominal pain, diarrhea, constipation, melena. : Denies dysuria, frequency, incontinence, hematuria, urinary retention, flank pain. MUSCULOSKELETAL: See HPI SKIN: No rash, no erythema, no pruritus NEUROLOGIC: Denies weakness, dizziness, headache, numbness, change in speech, confusion PSYCHIATRIC: No concerning psychosocial issues. 12 point review of systems is negative except for those stated above and HPI [facility] Medical History Candidiasis of scrotum (Chronic) HTN (hypertension) (Chronic) History of prostate cancer (Chronic) Incontinence (Chronic) Surgical History History of prostatectomy (Resolved) History of squamous cell carcinoma excision (Resolved) Family History Other Family history non-contributory Social History household members: spouse and other Smoking Status: Never smoker alcohol intake: current Family History Other Family history non-contributory Social History household members: spouse and other Smoking Status: Never smoker alcohol intake: current Exam Initial Vital Signs Initial Vital Signs: Vital Signs Temperature 97.1 F L 03/31/19 04:27 Pulse Rate 80 03/31/19 04:27 Respiratory Rate 18 03/31/19 04:27 Blood Pressure 118/78 03/31/19 04:27 Pulse Oximetry 95 03/31/19 04:27 GENERAL: Pleasant well-appearing elderly male no acute distress HEENT: Head atraumatic,EOMI, pupils reactive, face symmetric, CARDIOVASCULAR: Regular rate and rhythm without murmurs, rubs or gallops. RESPIRATORY: Breath sounds equal bilaterally, no wheezes rales or rhonchi. ABDOMEN: Soft, nontender. Normoactive bowel sounds all 4 quadrants. No guarding or rebound. EXTREMITIES: Normal range of motion. right leg significantly more swollen than left. Although he has pitting edema bilaterally. right leg is stable per caregiver. Neurovascularly intact Right hip mild tenderness BACK: No vertebral tenderness no step-off no sign of trauma NEUROLOGICAL: Alert and oriented x4.Normal gait and speech. Cranial nerves II through XII grossly intact. SKIN: Warm, dry, no laceration, no petechiae, no rashes or lesions. Course Orders Ordered: ED Orders 03/31/19 04:18 XR hip w pel if done RT 2V Stat Vital Signs - 8 hr 03/31/19 04:27 03/31/19 05:15 Temperature 97.1 F L Pulse Rate 80 84 Respiratory Rate 18 20 Blood Pressure 118/78 121/74 Pulse Oximetry 95 96 MDM - Extremity Injury (Lower) Imaging Data Right hip x-ray: Attestation: I personally reviewed and interpreted this imaging study as follows: My impression: No acute fracture MDM Narrative Medical decision making narrative: The patient has no sign of trauma he is alert and oriented at baseline per staff was at bedside. No indication for any further imaging. Discharge Plan Departure Patient Disposition: Home Clinical Impression: Fall Qualifiers: Encounter type: initial encounter Qualified Code(s): W19.XXXA - Unspecified fall, initial encounter Discharge Date/Time: 03/31/19 04:45 Interventions: ED Discharge Assessment Last Done: 03/31/19 05:15 Instructions: How to Prevent Falls Activity Restrictions/Additional Instructions: *You have been diagnosed with right hip pain *What to do: No fracture identified *Continue to take medications as directed *Follow up with your primary care provider in 2-3 days *Return to ER if you should have any new, worsening or concerning symptoms Prescriptions: No Action aspirin 81 mg Tablet,Delayed Release (Dr/Ec) 81 mg PO DAILY RF: 0 cyanocobalamin (vitamin B-12) [Vitamin B-12] 500 mcg Tablet 500 mcg PO DAILY RF: 0 cholecalciferol (vitamin D3) [Vitamin D3] 1,000 unit Tablet 1,000 unit PO DAILY RF: 0 zinc oxide 15 % cream See Rx Instructions .ROUTE .COMPLEX Qty: 99 RF: 0 ketoconazole 2 % cream See Rx Instructions .ROUTE .COMPLEX Qty: 30 RF: 0 tamsulosin [Flomax] 0.4 mg Capsule 0.4 mg PO DAILY Qty: 30 RF: 0 acetaminophen [Tylenol Arthritis Pain] 650 mg tablet extended release 650 mg PO Q8H Qty: 60 RF: 0 lidocaine [Lidoderm] 5 % adhesive patch,medicated 2 patch TOP DAILY Qty: 30 RF: 0 Referrals: Bill Alarcon MD [Primary Care Provider] -
[2019-03-31 05:15] VITALS: BP 121/74; PULSE 84; RESP 20; O2SAT 96
== END 2019-03-31 04:45 | disposition home or self-care (01) ==
PROVIDERS: Emergency Provider Emergency Medicine; PCP Internal Medicine
DX: M25.551 Pain in right hip (principal); W19.XXXA Unspecified fall, initial encounter
CPT/HCPCS: 73502; 99283

== ENCOUNTER → 2019-05-24 08:49 | Outpatient (ROUT) | payer MEDICARE, SELFPAY ==
[2019-01-23 00:02] VITALS: BMI 23.6
[2019-05-24 10:32] LABS: BUN Creatinine Ratio 34.3 (6-22); Blood Urea Nitrogen 24 mg/dL (9-20); Calcium 9.1 mg/dL (8.4-10.2); Carbon Dioxide 28 mmol/L (22-32); Chloride 105 mmol/L (98-107); Estimated Glomerular Filt Rate > 60.0 mL/min (>60); Glucose 71 mg/dL (80-110); HEMOLYSIS < 15 (0-50); Potassium 3.8 mmol/L (3.4-5.1); Sodium 142 mmol/L (137-145)
== END ==
PROVIDERS: PCP Internal Medicine; Visit Provider Internal Medicine
DX: R60.9 Edema, unspecified (principal)
CPT/HCPCS: 36415; 80048

== ENCOUNTER → 2019-06-10 15:54 | Outpatient (ROUT) | payer MEDICARE, SELFPAY ==
[2019-01-23 00:02] VITALS: BMI 23.6
[2019-06-10 16:19] LABS: Bacteria Urine None Seen; WBC Urine None Seen (0-5/HPF)
[2019-06-10 16:32] LABS: Appearance Urine UA CLEAR; Bilirubin Urine UA NEGATIVE (NEGATIVE); Color Urine UA YELLOW; Glucose Urine UA NEGATIVE (Negative); Ketones Urine UA NEGATIVE (NEGATIVE); Leukocyte Esterase Urine UA NEGATIVE (NEGATIVE); Nitrite Urine UA NEGATIVE (Negative); Occult Blood Urine UA TRACE-INTACT (Negative); Protein Urine UA NEGATIVE (Negative); Specific Gravity Urine UA >=1.030 (1.000-1.035); Urobilinogen Urine UA 0.2 E.U./dL (0.2); pH Urine UA 5.5 (4.5-8.0)
[2019-06-10 16:39] LABS: Culture Indicated Urine Cult Not Indicated; RBC Urine 1-5/HPF (0-5/HPF)
== END ==
PROVIDERS: PCP Internal Medicine; Visit Provider Internal Medicine
DX: N39.0 Urinary tract infection, site not specified (principal)
CPT/HCPCS: 81001

== ENCOUNTER 2019-06-16 17:53 | Inpatient (IN) | payer MEDICARE, SELFPAY ==
[2019-01-23 00:02] VITALS: BMI 23.6
[2019-06-16] VITALS (7 sets, daily range): BP systolic 101–107; BP diastolic 52–61; PULSE 88–89; RESP 14–20; TEMP 36.8–38.5; O2SAT 95–99; BMI 24.3
--- NOTE | 2019-06-16 18:07 | ED.NEUROSD ---
HPI - Neuro Symptoms/Deficit General Chief Complaint: Neuro Symptoms/Deficit Stated Complaint: Increased confusion Time Seen by Provider: 06/16/19 18:02 Source: patient, family and EMS Mode of arrival: EMS Limitations: no limitations History of Present Illness HPI Narrative: 78-year-old male nonsmoker presents by EMS from a local half-way facility for evaluation of lethargy and confusion over the past day or 2. He has had no focal findings such is blurred or double vision, trouble with speech nor numbness tingling or focal weakness. He normally can get around certainly with assistance but has been so weak that he can barely sit at the bedside. He denies chest pain or shortness of breath and has had no significant cough. He has had a poor appetite and has been difficult to arouse. There is no new medications or dietary considerations. Patient has had similar episodes in the past due to urinary tract infections Onset (ago): day(s) Timing confirmed by: family member and caregiver Location: altered History of same: Yes Severity: moderate Quality: weak Relieving factors: none Exacerbating factors: none Context: gradual onset On Anticoagulants: No Associated symptoms: confusion and loss of appetite Treatments Prior to Arrival: none Related Data Home Medications Medication Instructions Recorded Confirmed aspirin 81 mg PO DAILY 12/15/18 06/16/19 cholecalciferol (vitamin D3) 1,000 unit PO DAILY 12/15/18 06/16/19 [Vitamin D3] cyanocobalamin (vitamin B-12) 500 mcg PO DAILY 12/15/18 06/16/19 [Vitamin B-12] furosemide 20 mg PO DAILY 06/16/19 06/16/19 Previous Rx's Medication Instructions Recorded tamsulosin [Flomax] 0.4 mg PO DAILY #30 cap 01/26/19 acetaminophen [Tylenol Arthritis 650 mg PO Q8H #60 tab 02/27/19 Pain] Allergies Allergy/AdvReac Type Severity Reaction Status Date / Time hydromorphone [From Dilaudid] Allergy Verified 06/16/19 18:02 Review of Systems Constitutional Denies chills, Denies fever(s), Reports lethargy and Reports weakness Eyes Denies change in vision, Denies eye discharge, Denies irritation and Denies loss of vision ENT Ears, Nose, Mouth, and Throat: Denies change in voice, Denies neck pain and Denies sore throat Cardiovascular Denies chest pain, Denies irregular heart rhythm, Denies lightheadedness, Denies palpitations, Denies dyspnea, Denies dyspnea on exertion and Denies orthopnea Respiratory Denies cough, Denies dyspnea, Denies dyspnea on exertion and Denies wheezing Gastrointestinal Gastrointestinal: Denies abdominal pain, Denies change in bowel habits, Denies diarrhea, Denies nausea and Denies vomiting Genitourinary Denies hematuria, Denies flank pain, Denies urinary incontinence and Denies urinary urgency Musculoskeletal Denies neck pain Integumentary/Breasts Denies pruritus, Denies erythema, Denies rash and Denies wounds Neurologic Denies confusion, Denies loss of vision and Reports weakness Psychiatric Denies anxiety, Denies confusion, Denies depression, Denies homicidal ideation and Denies suicidal ideation Endocrine Denies palpitations Hematologic/Lymphatic Denies easy bruising Allergic/Immunologic Denies wheezing [facility] Medical History Stage III pressure ulcer of heel (Acute) Cellulitis and abscess of foot (Acute) Incontinence (Chronic) HTN (hypertension) (Chronic) Candidiasis of scrotum (Chronic) History of prostate cancer (Chronic) Surgical History History of prostatectomy (Resolved) History of squamous cell carcinoma excision (Resolved) Family History Other Family history non-contributory Social History household members: spouse and other Smoking Status: Never smoker alcohol intake: current Family History Other Family history non-contributory Social History household members: spouse and other Smoking Status: Never smoker alcohol intake: current Exam Narrative Exam Narrative: GENERAL: 78M appears unwell, tired, weak, not at baseline HEAD: Atraumatic. Normocephalic. No temporal or scalp tenderness. EYES: Pupils equal round and reactive. Extraocular motions intact. No scleral icterus. No injection or drainage. ENT: Dry membranes Nose without bleeding, purulent drainage or septal hematoma. Throat without erythema, tonsillar hypertrophy or exudate. Uvula midline. Airway patent. NECK: Trachea midline. No JVD or lymphadenopathy. Supple, nontender, no meningeal signs. CARDIOVASCULAR: Regular rate and rhythm without murmurs, gallops, or rubs. RESPIRATORY: Clear to auscultation. Breath sounds equal bilaterally. No wheezes, rales, or rhonchi. GASTROINTESTINAL: Abdomen soft, non-tender, nondistended. No hepato-splenomegaly, or palpable masses. No guarding. EXTREMITIES: No clubbing, cyanosis, or edema. No joint tenderness, effusion, or edema noted. BACK: Nontender without deformity or crepitance. No flank tenderness. NEURO: Somnalent, but easily arousable SKIN: No rash or erythema. Initial Vital Signs Initial Vital Signs: Vital Signs Temperature 98.3 F 06/16/19 18:03 Pulse Rate 88 06/16/19 18:03 Respiratory Rate 14 06/16/19 18:03 Blood Pressure 102/52 L 06/16/19 18:03 Pulse Oximetry 99 06/16/19 18:03 Course Orders Ordered: ED Orders 06/16/19 18:38 Blood Culture Stat 06/16/19 20:57 Urinalysis and Microscopic Stat 06/16/19 22:20 Education, smoking cessation ONGOING 06/16/19 22:24 Consult to Physician Routine 06/16/19 23:45 MRSA PCR Stat 06/17/19 05:00 Basic Metabolic Panel Routine Complete Blood Count AUTO DIFF Routine 06/17/19 22:38 periph venous low extrem bi Urgent Acetaminophen (Tylenol) 650 mg PO Q6HR PRN PRN Reason: As Needed for Fever/Mild Pain Aspirin (Aspirin Ec) 81 mg PO DAILY [facility] Enoxaparin Sodium (Lovenox) 40 mg SUBCUT DAILY [facility] Last Admin: 06/16/19 23:23 Dose: Not Given Vancomycin HCl (Vancomycin) 1,000 mg in 200 mls @ 200 mls/hr IV Q8H [facility] Ondansetron HCl (Zofran) 4 mg IV Q8HR PRN PRN Reason: Nausea And Vomiting Tamsulosin HCl (Flomax) 0.4 mg PO DAILY [facility] Vancomycin HCl (Vancomycin Per Pharmacy) 1 request MISC NOW ONE Stop: 06/16/19 22:46 Vancomycin HCl (Vancomycin Trough) 1 request MISC NOW ONE Stop: 06/17/19 11:31 Discontinued Medications Acetaminophen (Tylenol) 650 mg [place] NOW ONE Stop: 06/16/19 22:42 Last Admin: 06/16/19 22:30 Dose: 650 mg Sodium Chloride (Normal Saline 0.9%) 500 mls @ 1,000 mls/hr IV BOLUS ONE Stop: 06/16/19 18:41 Last Infusion: 06/16/19 19:11 Dose: 0 mls/hr Admin: 06/16/19 18:26 Dose: 1,000 mls/hr Ceftriaxone Sodium/Dextrose (Rocephin) 1 gm in 50 mls @ 100 mls/hr IV NOW ONE Stop: 06/16/19 22:05 Last Infusion: 06/16/19 21:58 Dose: 0 mls/hr Infusion: 06/16/19 21:57 Dose: 0 mls/hr Admin: 06/16/19 21:56 Dose: 100 mls/hr Vancomycin HCl 1,800 mg/ (Sodium Chloride) 500 mls @ 250 mls/hr IV NOW ONE Stop: 06/16/19 22:46 Last Admin: 06/17/19 00:04 Dose: 250 mls/hr Reevaluation(s) Reevaluation #1: patient unable to ambulate even with assistance, not at baseline, no obvious or easily reversible cause Consultations Consultation #1: hospitalist happy to accept, will see patient at the bedside Vital Signs - 8 hr 06/16/19 20:24 06/16/19 20:34 06/16/19 22:30 Temperature 100.5 F H 101.3 F H Pulse Rate Pulse Rate [Orthostatic Lying] 88 Pulse Rate [Orthostatic Sitting] 89 Respiratory Rate Blood Pressure Blood Pressure [Orthostatic Lying] 107/61 Blood Pressure [Orthostatic Sitting] 107/59 L Pulse Oximetry 06/16/19 22:36 06/16/19 23:00 06/17/19 01:12 Temperature 101.3 F H 100.7 F H 100.7 F H Pulse Rate 89 89 Pulse Rate [Orthostatic Lying] Pulse Rate [Orthostatic Sitting] Respiratory Rate 20 16 Blood Pressure 101/53 L 113/78 Blood Pressure [Orthostatic Lying] Blood Pressure [Orthostatic Sitting] Pulse Oximetry 95 96 06/17/19 01:23 Temperature Pulse Rate Pulse Rate [Orthostatic Lying] Pulse Rate [Orthostatic Sitting] Respiratory Rate Blood Pressure Blood Pressure [Orthostatic Lying] Blood Pressure [Orthostatic Sitting] Pulse Oximetry 96 MDM - Neuro Symptoms/Deficit Lab Data Result diagrams: 06/16/19 18:18 06/16/19 18:18 Lab Results 06/16/19 06/16/19 06/16/19 Range/Units 18:18 18:18 18:18 WBC 7.3 (4.5-11.0) X10^3/uL RBC 4.21 L (4.5-5.9) X10^6/uL Hgb 12.8 L (13.5-17.5) g/dL Hct 38.1 L (41-53) % MCV 90.5 (80-100) fL MCH 30.4 (26-34) PG MCHC 33.6 (30-36) % RDW 15.2 H (11.6-14.8) % Plt Count 171 (150-400) X10^3/uL Neut % (Auto) 75.9 H (50-75) % Lymph % (Auto) 11.2 L (25-40) % [place] % (Auto) 11.0 (3-14) % Eos % (Auto) 1.6 L (2-4) % Baso % (Auto) 0.3 (0-2) % Neut # (Auto) 5600 (6144-7429) /uL Lymph # (Auto) 800 L (2827-8167) /uL [place] # (Auto) 800 (0-900) /uL Eos # (Auto) 100 (0-450) /uL Baso # (Auto) 0 (0-100) /uL Sodium 141 (137-145) mmol/L Potassium 3.6 (3.4-5.1) mmol/L Chloride 103 (98-107) mmol/L Carbon Dioxide 28 (22-32) mmol/L BUN 21 H (9-20) mg/dL Creatinine 0.80 (0.66-1.25) mg/dL Estimated GFR > 60.0 (>60) mL/min BUN/Creatinine Ratio 26.3 H (6-22) Glucose 119 H (80-110) mg/dL Lactate (0.7-2.1) mmol/L Calcium 8.9 (8.4-10.2) mg/dL B-Natriuretic Peptide (<100) Procalcitonin < 0.05 (<0.5) ng/mL Urine Color Urine Appearance Urine pH (4.5-8.0) Ur Specific [place] (1.000-1.035) Urine Protein (Negative) Urine Glucose (UA) (Negative) g/dL Urine Ketones (NEGATIVE) Urine Occult Blood (Negative) Urine Nitrate (Negative) Urine Bilirubin (NEGATIVE) Urine Urobilinogen (0.2) E.U./dL Ur Leukocyte Esterase (NEGATIVE) Urine RBC (0-5/HPF) Urine WBC (0-5/HPF) Ur Squamous Epith Cells (0-5/HPF) Urine Bacteria (None) Urine Mucus (Negative) Ur Culture Indicated? Nasal Screen MRSA (PCR) (Negative) 06/16/19 06/16/19 06/16/19 Range/Units 18:18 18:18 20:57 WBC (4.5-11.0) X10^3/uL RBC (4.5-5.9) X10^6/uL Hgb (13.5-17.5) g/dL Hct (41-53) % MCV (80-100) fL MCH (26-34) PG MCHC (30-36) % RDW (11.6-14.8) % Plt Count (150-400) X10^3/uL Neut % (Auto) (50-75) % Lymph % (Auto) (25-40) % Carson % (Auto) (3-14) % Eos % (Auto) (2-4) % Baso % (Auto) (0-2) % Neut # (Auto) (3099-4616) /uL Lymph # (Auto) (3665-7805) /uL Carson # (Auto) (0-900) /uL Eos # (Auto) (0-450) /uL Baso # (Auto) (0-100) /uL Sodium (137-145) mmol/L Potassium (3.4-5.1) mmol/L Chloride (98-107) mmol/L Carbon Dioxide (22-32) mmol/L BUN (9-20) mg/dL Creatinine (0.66-1.25) mg/dL Estimated GFR (>60) mL/min BUN/Creatinine Ratio (6-22) Glucose (80-110) mg/dL Lactate 2.0 (0.7-2.1) mmol/L Calcium (8.4-10.2) mg/dL B-Natriuretic Peptide < 100 (<100) Procalcitonin (<0.5) ng/mL Urine Color [place] Urine Appearance Clear Urine pH 5.5 (4.5-8.0) Ur Specific [place] 1.025 (1.000-1.035) Urine Protein Trace H (Negative) Urine Glucose (UA) Negative (Negative) g/dL Urine Ketones 1+ H (NEGATIVE) Urine Occult Blood 1+ H (Negative) Urine Nitrate Negative (Negative) Urine Bilirubin Negative (NEGATIVE) Urine Urobilinogen 0.2 (0.2) E.U./dL Ur Leukocyte Esterase Negative (NEGATIVE) Urine RBC 1-5/hpf (0-5/HPF) Urine WBC None seen (0-5/HPF) Ur Squamous Epith Cells 0-1 /hpf (0-5/HPF) Urine Bacteria None seen (None) Urine Mucus 2+ H (Negative) Ur Culture Indicated? Cult not indicated Nasal Screen MRSA (PCR) (Negative) 06/16/19 Range/Units 23:45 WBC (4.5-11.0) X10^3/uL RBC (4.5-5.9) X10^6/uL Hgb (13.5-17.5) g/dL Hct (41-53) % MCV (80-100) fL MCH (26-34) PG MCHC (30-36) % RDW (11.6-14.8) % Plt Count (150-400) X10^3/uL Neut % (Auto) (50-75) % Lymph % (Auto) (25-40) % [place] % (Auto) (3-14) % Eos % (Auto) (2-4) % Baso % (Auto) (0-2) % Neut # (Auto) (7515-4318) /uL Lymph # (Auto) (0349-5972) /uL Carson # (Auto) (0-900) /uL Eos # (Auto) (0-450) /uL Baso # (Auto) (0-100) /uL Sodium (137-145) mmol/L Potassium (3.4-5.1) mmol/L Chloride (98-107) mmol/L Carbon Dioxide (22-32) mmol/L BUN (9-20) mg/dL Creatinine (0.66-1.25) mg/dL Estimated GFR (>60) mL/min BUN/Creatinine Ratio (6-22) Glucose (80-110) mg/dL Lactate (0.7-2.1) mmol/L Calcium (8.4-10.2) mg/dL B-Natriuretic Peptide (<100) Procalcitonin (<0.5) ng/mL Urine Color Urine Appearance Urine pH (4.5-8.0) Ur Specific [place] (1.000-1.035) Urine Protein (Negative) Urine Glucose (UA) (Negative) g/dL Urine Ketones (NEGATIVE) Urine Occult Blood (Negative) Urine Nitrate (Negative) Urine Bilirubin (NEGATIVE) Urine Urobilinogen (0.2) E.U./dL Ur Leukocyte Esterase (NEGATIVE) Urine RBC (0-5/HPF) Urine WBC (0-5/HPF) Ur Squamous Epith Cells (0-5/HPF) Urine Bacteria (None) Urine Mucus (Negative) Ur Culture Indicated? Nasal Screen MRSA (PCR) Positive for mrsa H (Negative) Imaging Data Chest x-ray: Radiologist's impression: SimonJimi galvan 78 M [address] [place] [address] XRay Report Signed Patient: Jimi Montes CMR#: [id number] : [id number]:[id number] Age/Sex: 78 / MDate of Service: 06/16/19 Loc: ED Accession Number: [id number] Procedure: XR chest 1V Ordering Provider: Bryan Massey D.O. PROCEDURE: XR CHEST 1V INDICATIONS: weakness TECHNIQUE: One view of the chest was acquired. COMPARISON: [facility], , XR CHEST 1V, 01/17/2019, 20:48. FINDINGS: Surgical changes and devices: None. Lungs and pleura: Limited study with the right upper lung zone obscured by the patient's neck and mandible. The lateral costophrenic angles are incompletely included. The visualized lungs are clear. No definite pleural effusions. No evidence of left pneumothorax. Right lung is incompletely evaluated. Mediastinum: Mediastinal contours appear prominent likely due to rotation. Heart size is normal. Bones and chest wall: No suspicious bony lesions. Overlying soft tissues appear unremarkable. IMPRESSION: 1. Markedly limited study due to limited patient positioning. 2. Left lung is grossly clear. Right lung is incompletely evaluated. Recommend a repeat study when clinically feasible. Dictated by: Theodore Rivas M.D. on 06/16/2019 at 19:09 Approved by: Theodore Rivas M.D. on 06/16/2019 at 19:11 Discharge Plan Departure Patient Disposition: Admitted as Observation Clinical Impression: Acute metabolic encephalopathy, Acute dehydration Fever Qualifiers: Fever type: unspecified Qualified Code(s): R50.9 - Fever, unspecified Discharge Date/Time: 06/16/19 22:02 Interventions: ED Discharge Assessment Last Done: 06/16/19 21:58 Admit Date/Time: 06/16/19 21:44 Admit Provider: Mikayla García
--- NOTE | 2019-06-16 18:13 | DI.RAD.S_ITS ---
PROCEDURE: XR CHEST 1V INDICATIONS: weakness TECHNIQUE: One view of the chest was acquired. COMPARISON: [facility], CR, XR CHEST 1V, 01/17/2019, 20:48. FINDINGS: Surgical changes and devices: None. Lungs and pleura: Limited study with the right upper lung zone obscured by the patient's neck and mandible. The lateral costophrenic angles are incompletely included. The visualized lungs are clear. No definite pleural effusions. No evidence of left pneumothorax. Right lung is incompletely evaluated. Mediastinum: Mediastinal contours appear prominent likely due to rotation. Heart size is normal. Bones and chest wall: No suspicious bony lesions. Overlying soft tissues appear unremarkable. IMPRESSION: 1. Markedly limited study due to limited patient positioning. 2. Left lung is grossly clear. Right lung is incompletely evaluated. Recommend a repeat study when clinically feasible. Dictated by: Theodore Rivas M.D. on 06/16/2019 at 19:09 Approved by: Theodore Rivas M.D. on 06/16/2019 at 19:11
--- NOTE | 2019-06-16 18:22 | PC.NURSE ---
Pt able to move all extremities at baseline for pt. Pt has hx CA right leg with wound and swelling. Pt is also alert and oriented to person and place which is baseline per medics. Pt sent here for not making sense,pt is answering questions at triage appropriately.
[2019-06-16] MEDS: SODIUM CHLORIDE 0.9% 500 ML 1000 ML IV (18:26)
[2019-06-16 18:31] LABS: Add Manual Diff / Slide Review NO; Basophils Absolute Auto 0 /uL (0-100); Basophils Percent Auto 0.3 % (0-2); Eosinophils Absolute Auto 100 /uL (0-450); Eosinophils Percent Auto 1.6 % (2-4); Hematocrit 38.1 % (41-53); Hemoglobin 12.8 g/dL (13.5-17.5); Lymphocytes Absolute Auto 800 /uL (1100-4500); Lymphocytes Percent Auto 11.2 % (25-40); Mean Corpuscular HGB Conc 33.6 % (30-36); Mean Corpuscular Hemoglobin 30.4 PG (26-34); Mean Corpuscular Volume 90.5 fL (80-100); Monocytes Absolute Auto 800 /uL (0-900); Neutrophils Absolute Auto 5600 /uL (1500-7000); Neutrophils Percent Auto 75.9 % (50-75); Platelet Count 171 X10^3/uL (150-400); Red Blood Cell Count 4.21 X10^6/uL (4.5-5.9); Red Cell Distribution Width 15.2 % (11.6-14.8); White Blood Cell Count 7.3 X10^3/uL (4.5-11.0)
[2019-06-16 18:46] LABS: BUN Creatinine Ratio 26.3 (6-22); Blood Urea Nitrogen 21 mg/dL (9-20); Calcium 8.9 mg/dL (8.4-10.2); Carbon Dioxide 28 mmol/L (22-32); Chloride 103 mmol/L (98-107); Estimated Glomerular Filt Rate > 60.0 mL/min (>60); Glucose 119 mg/dL (80-110); HEMOLYSIS < 15 (0-50); Potassium 3.6 mmol/L (3.4-5.1); Sodium 141 mmol/L (137-145)
[2019-06-16 19:02] LABS: Procalcitonin < 0.05 ng/mL (<0.5)
--- NOTE | 2019-06-16 20:32 | PC.NURSE ---
Pt unable to sit on edge of bed with 2 pweson assistance
[2019-06-16 21:04] LABS: Bacteria Urine None Seen; WBC Urine None Seen (0-5/HPF)
[2019-06-16 21:05] LABS: Appearance Urine UA CLEAR; Bilirubin Urine UA NEGATIVE (NEGATIVE); Color Urine UA ORANGE; Glucose Urine UA NEGATIVE (Negative); Ketones Urine UA 1+ (NEGATIVE); Leukocyte Esterase Urine UA NEGATIVE (NEGATIVE); Nitrite Urine UA NEGATIVE (Negative); Occult Blood Urine UA 1+ (Negative); Protein Urine UA TRACE (Negative); Specific Gravity Urine UA 1.025 (1.000-1.035); Urobilinogen Urine UA 0.2 E.U./dL (0.2); pH Urine UA 5.5 (4.5-8.0)
[2019-06-16 21:11] LABS: RBC Urine 1-5/HPF (0-5/HPF); Squamous Epithelial Cell Urine 0-1 /HPF (0-5/HPF)
[2019-06-16 21:12] LABS: Culture Indicated Urine Cult Not Indicated; Mucus Urine 2+ (Negative)
[2019-06-16] MEDS: CEFTRIAXONE 1 GM/50 ML FROZ.PIGGY IV (21:56)
--- NOTE | 2019-06-16 22:28 | PM.HP.1 ---
History of Present Illness Date Patient Seen: 06/16/19 Time Patient Seen: 21:00 Chief complaint: Increased confusion Narrative: Jimi Montes is a pleasant 78-year-old male resident of [facility] with a history of urinary incontinence, hypertension and a history of prostate cancer was sent over to the emergency department due to increasing lethargy and weakness. Review of prior H and Ps indicate he has mixed incontinence since undergoing a protatectomy and has had a chronically swollen right lower leg and bilateral neuropathy since undergoing chemotherapy. In the emergency department, he was found to be dehydrated and developed a fever shortly after decision was made to admit the patient. His initial presenting vitals were normal, labs unimpressive, and a lactate of the upper limit of normal. He had low normal blood pressure. He was initially treated with ceftriaxone 1 g 4 empiric coverage of an infection of unknown origin. Due to the patient's lethargy the patient was unable to provide a history or a meaningful review of systems, however he does not appear to have dementia. Patient History Medical History (Updated 06/16/19 @ 22:30 by DONALD Garcia) Stage III pressure ulcer of heel (Acute) Cellulitis and abscess of foot (Acute) Incontinence (Chronic) HTN (hypertension) (Chronic) Candidiasis of scrotum (Chronic) History of prostate cancer (Chronic) Surgical History History of prostatectomy (Resolved) History of squamous cell carcinoma excision (Resolved) Family History Other Family history non-contributory Social History household members: spouse and other Smoking Status: Never smoker alcohol intake: current Family & Social History Family History Other Family history non-contributory Social History: household members spouse,other Unable to obtain family history due to patient's extreme lethargy Safety & Behavioral: Feels Safe in Current Yes Environment Been Physically Hurt or No Threatened By a Person Tobacco & Substance use: Smoking Status Never smoker alcohol intake current alcohol intake frequency a few times a week Substance Use Type does not use Meds Home Medications Medication Instructions Recorded Confirmed Type aspirin 81 mg PO DAILY 12/15/18 06/16/19 History cholecalciferol (vitamin D3) 1,000 unit PO DAILY 12/15/18 06/16/19 History [Vitamin D3] cyanocobalamin (vitamin B-12) 500 mcg PO DAILY 12/15/18 06/16/19 History [Vitamin B-12] tamsulosin [Flomax] 0.4 mg PO DAILY #30 cap 01/26/19 06/16/19 Rx acetaminophen [Tylenol Arthritis 650 mg PO Q8H #60 tab 02/27/19 06/16/19 Rx Pain] furosemide 20 mg PO DAILY 06/16/19 06/16/19 History Allergies Allergy/AdvReac Type Severity Reaction Status Date / Time hydromorphone [From Dilaudid] Allergy Verified 06/16/19 18:02 Review of Systems Review of Systems unobtainable due to mental status Exam Vital Signs (past 8 hours): - 06/16/19 18:03 06/16/19 18:31 06/16/19 20:24 Temperature 98.3 F 100.5 F H Pulse Rate 88 89 Pulse Rate [Orthostatic Lying] Pulse Rate [Orthostatic Sitting] Respiratory Rate 14 19 Blood Pressure 102/52 L Blood Pressure [Left Arm] 107/54 L Blood Pressure [Orthostatic Lying] Blood Pressure [Orthostatic Sitting] Pulse Oximetry 99 99 06/16/19 20:34 Temperature Pulse Rate Pulse Rate [Orthostatic Lying] 88 Pulse Rate [Orthostatic Sitting] 89 Respiratory Rate Blood Pressure Blood Pressure [Left Arm] Blood Pressure [Orthostatic Lying] 107/61 Blood Pressure [Orthostatic Sitting] 107/59 L Pulse Oximetry Oxygen Delivery Method Room Air Narrative Exam Narrative: Gen: Very lethargic 78 y.o. male, minimally responsive HEENT: normocephalic, atraumatic, conjunctiva clear, sclera non-icteric, oral mucosa appears dry Neck: supple, full ROM Resp: Lungs CTA, non-labored breathing CV: RRR, no murmur or rubs Abd: soft, non-tender, normoactive BTs Skin: erythema of the left hand and digits, significant swelling of the right leg compared to the left. Left leg w/+2 pitting edema, right leg w/+4 pitting edema. There is a 2 inch diameter stage 3 pressure ulcer of the right lateral heel with erythema extending from the ulcer proximally to below the knee Neuro: Alert and oriented X 4 w/no focal deficits Extremities: See above. Palpable pedal and dorsal pulses bilaterally Psyche: pleasant when aroused awake and appears to be of normal mentation Objective Labs Result Diagrams: 06/16/19 18:18 06/16/19 18:18 Labs: Laboratory Results - last 24 hr 06/16/19 06/16/19 06/16/19 18:18 18:18 18:18 WBC 7.3 RBC 4.21 L Hgb 12.8 L Hct 38.1 L MCV 90.5 MCH 30.4 MCHC 33.6 RDW 15.2 H Plt Count 171 Neut % (Auto) 75.9 H Lymph % (Auto) 11.2 L Bee % (Auto) 11.0 Eos % (Auto) 1.6 L Baso % (Auto) 0.3 Neut # (Auto) 5600 Lymph # (Auto) 800 L Bee # (Auto) 800 Eos # (Auto) 100 Baso # (Auto) 0 Sodium 141 Potassium 3.6 Chloride 103 Carbon Dioxide 28 BUN 21 H Creatinine 0.80 Estimated GFR > 60.0 BUN/Creatinine Ratio 26.3 H Glucose 119 H Lactate Calcium 8.9 Procalcitonin < 0.05 Urine Color Urine Appearance Urine pH Ur Specific [place] Urine Protein Urine Glucose (UA) Urine Ketones Urine Occult Blood Urine Nitrate Urine Bilirubin Urine Urobilinogen Ur Leukocyte Esterase Urine RBC Urine WBC Ur Squamous Epith Cells Urine Bacteria Urine Mucus Ur Culture Indicated? 06/16/19 06/16/19 18:18 20:57 WBC RBC Hgb Hct MCV MCH MCHC RDW Plt Count Neut % (Auto) Lymph % (Auto) Bee % (Auto) Eos % (Auto) Baso % (Auto) Neut # (Auto) Lymph # (Auto) Bee # (Auto) Eos # (Auto) Baso # (Auto) Sodium Potassium Chloride Carbon Dioxide BUN Creatinine Estimated GFR BUN/Creatinine Ratio Glucose Lactate 2.0 Calcium Procalcitonin Urine Color [place] Urine Appearance Clear Urine pH 5.5 Ur Specific [place] 1.025 Urine Protein Trace H Urine Glucose (UA) Negative Urine Ketones 1+ H Urine Occult Blood 1+ H Urine Nitrate Negative Urine Bilirubin Negative Urine Urobilinogen 0.2 Ur Leukocyte Esterase Negative Urine RBC 1-5/hpf Urine WBC None seen Ur Squamous Epith Cells 0-1 /hpf Urine Bacteria None seen Urine Mucus 2+ H Ur Culture Indicated? Cult not indicated Assessment & Plan Assessment & Plan narrative: Cooper Clayton is an 78-year-old male who presented to the emergency room with progressing fever of 100, increasing to 101 when the patient was brought to the floor. He was found to have a stage III pressure ulcer of his right heel and progressive erythema radiating towards his lower right knee. Patient will be admitted for treatment of a right lower extremity cellulitis. 1. Left lower extremity cellulitis, acute, present on admission Patient was given 1 g ceftriaxone in the emergency department for empiric treatment of an infection of unknown origin Patient will be initiated on vancomycin 1800 mg IV tonight, pharmacy to dose in the morning. Blood cultures were drawn in the emergency department and are pending Patient will undergo MRSA swab due to living in an assisted living facility. Patient is not deemed to be septic at this time. 2. Fever, acute present on admission Patient to receive rectal tylenol X 1, and receive q 6 hours as needed 3. Stage 2-3 pressure ulcer of the right lateral heel, POA Wound care consult requested and appreciated 4. Lower right leg edema, POA He had a compression wrap from the ankle to below the knee that was loose on presentation to the floor Nursing understood his right leg is always 2-3 X the size of his left leg Doppler ultrasound to rule out DVT/abscess 5. Acute metabolic encephalopathy likely secondary to lower extremity infection, present on admission We will continue to monitor his lactate, CBC and chemistries in the morning I have not provided fluids at this time due to his swelling of his lower extremities however he will receive fluids with his antibiotics Brain natriuretic peptide is 100, m 6. Hypertension, chronic, not present on admission Appears that the patient takes furosemide for this Patient will receive IV furosemide based on clinical observation of edema Patient is currently normo-tensive 7. History of prostate cancer, with probable hypertrophy, chronic, POA Patient takes tamsulosin 0.4 mg once daily, this will be continued once the patient is a little more awake Patient is admitted as an inpatient as his stay is anticipated to exceed 2 midnights. FEN: IV saline lock, regular diet, check chemistries in the a.m. VTE Prophylaxis: Enoxaparin 40 mg once daily Disposition: Unknown at this time Code status: Patient is a full code per records from [facility]. Admission time: 75 minutes Meds reconciled: Partial based on current med list Scores GCS Mildred coma scale eye opening: To sound [place] coma scale verbal response: Confused [place] coma scale motor response: Obey commands [place] coma scale total score: 13
[2019-06-16] MEDS: ACETAMINOPHEN 650 MG SUPP PR (22:30)
--- NOTE | 2019-06-16 22:37 | P.HP_ITS ---
History of Present Illness Date Patient Seen: 06/16/19 Time Patient Seen: 21:00 Chief complaint: Increased confusion Narrative: Jimi Montes is a pleasant 78-year-old male resident of [facility] with a history of urinary incontinence, hypertension and a history of prostate cancer was sent over to the emergency department due to increasing lethargy and weakness. Review of prior H and Ps indicate he has mixed incontinence since undergoing a protatectomy and has had a chronically swollen right lower leg and bilateral neuropathy since undergoing chemotherapy. In the emergency department, he was found to be dehydrated and developed a fever shortly after decision was made to admit the patient. His initial presenting vitals were normal, labs unimpressive, and a lactate of the upper limit of normal. He had low normal blood pressure. He was initially treated with ceftria xone 1 g 4 empiric coverage of an infection of unknown origin. Due to the patient's lethargy the patient was unable to provide a history or a meaningful review of systems, however he does not appear to have dementia. Patient History Medical History (Updated 06/16/19 @ 22:30 by DONALD Garcia) Stage III pressure ulcer of heel (Acute) Cellulitis and abscess of foot (Acute) Incontinence (Chronic) HTN (hypertension) (Chronic) Candidiasis of scrotum (Chronic) History of prostate cancer (Chronic) Surgical History History of prostatectomy (Resolved) History of squamous cell carcinoma excision (Resolved) Family History Other Family history non-contributory Social History household members: spouse and other Smoking Status: Never smoker alcohol intake: current Family & Social History Family History Other Family history non-contributory Social History: household members spouse,other Unable to obtain family history due to patient's extreme lethargy Safety & Behavioral: Feels Safe in Current Yes Environment Been Physically Hurt or No Threatened By a Person Tobacco & Substance use: Smoking Status Never smoker alcohol intake current alcohol intake frequency a few times a week Substance Use Type does not use Meds Home Medications Medication Instructions Recorded Confirmed Type aspirin 81 mg PO DAILY 12/15/18 06/16/19 History cholecalciferol (vitamin D3) 1,000 unit PO DAILY 12/15/18 06/16/19 History [Vitamin D3] cyanocobalamin (vitamin B-12) 500 mcg PO DAILY 12/15/18 06/16/19 History [Vitamin B-12] tamsulosin [Flomax] 0.4 mg PO DAILY #30 cap 01/26/19 06/16/19 Rx acetaminophen [Tylenol Arthritis 650 mg PO Q8H #60 tab 02/27/19 06/16/19 Rx Pain] furosemide 20 mg PO DAILY 06/16/19 06/16/19 History Allergies Allergy/AdvReac Type Severity Reaction Status Date / Time hydromorphone [From Dilaudid] Allergy Verified 06/16/19 18:02 Review of Systems Review of Systems unobtainable due to mental status Exam Vital Signs (past 8 hours): - 06/16/19 18:03 06/16/19 18:31 06/16/19 20:24 Temperature 98.3 F 100.5 F H Pulse Rate 88 89 Pulse Rate [Orthostatic Lying] Pulse Rate [Orthostatic Sitting] Respiratory Rate 14 19 Blood Pressure 102/52 L Blood Pressure [Left Arm] 107/54 L Blood Pressure [Orthostatic Lying] Blood Pressure [Orthostatic Sitting] Pulse Oximetry 99 99 06/16/19 20:34 Temperature Pulse Rate Pulse Rate [Orthostatic Lying] 88 Pulse Rate [Orthostatic Sitting] 89 Respiratory Rate Blood Pressure Blood Pressure [Left Arm] Blood Pressure [Orthostatic Lying] 107/61 Blood Pressure [Orthostatic Sitting] 107/59 L Pulse Oximetry Oxygen Delivery Method Room Air Narrative Exam Narrative: Gen: Very lethargic 78 y.o. male, minimally responsive HEENT: normocephalic, atraumatic, conjunctiva clear, sclera non-icteric, oral mucosa appears dry Neck: supple, full ROM Resp: Lungs CTA, non-labored breathing CV: RRR, no murmur or rubs Abd: soft, non-tender, normoactive BTs Skin: erythema of the left hand and digits, significant swelling of the right leg compared to the left. Left leg w/+2 pitting edema, right leg w/+4 pitting edema. There is a 2 inch diameter stage 3 pressure ulcer of the right lateral heel with erythema extending from the ulcer proximally to below the knee Neuro: Alert and oriented X 4 w/no focal deficits Extremities: See above. Palpable pedal and dorsal pulses bilaterally Psyche: pleasant when aroused awake and appears to be of normal mentation Objective Labs Result Diagrams: 06/16/19 18:18 06/16/19 18:18 Labs: Laboratory Results - last 24 hr 06/16/19 06/16/19 06/16/19 18:18 18:18 18:18 WBC 7.3 RBC 4.21 L Hgb 12.8 L Hct 38.1 L MCV 90.5 MCH 30.4 MCHC 33.6 RDW 15.2 H Plt Count 171 Neut % (Auto) 75.9 H Lymph % (Auto) 11.2 L [place] % (Auto) 11.0 Eos % (Auto) 1.6 L Baso % (Auto) 0.3 Neut # (Auto) 5600 Lymph # (Auto) 800 L [place] # (Auto) 800 Eos # (Auto) 100 Baso # (Auto) 0 Sodium 141 Potassium 3.6 Chloride 103 Carbon Dioxide 28 BUN 21 H Creatinine 0.80 Estimated GFR > 60.0 BUN/Creatinine Ratio 26.3 H Glucose 119 H Lactate Calcium 8.9 Procalcitonin < 0.05 Urine Color Urine Appearance Urine pH Ur Specific [place] Urine Protein Urine Glucose (UA) Urine Ketones Urine Occult Blood Urine Nitrate Urine Bilirubin Urine Urobilinogen Ur Leukocyte Esterase Urine RBC Urine WBC Ur Squamous Epith Cells Urine Bacteria Urine Mucus Ur Culture Indicated? 06/16/19 06/16/19 18:18 20:57 WBC RBC Hgb Hct MCV MCH MCHC RDW Plt Count Neut % (Auto) Lymph % (Auto) [place] % (Auto) Eos % (Auto) Baso % (Auto) Neut # (Auto) Lymph # (Auto) [place] # (Auto) Eos # (Auto) Baso # (Auto) Sodium Potassium Chloride Carbon Dioxide BUN Creatinine Estimated GFR BUN/Creatinine Ratio Glucose Lactate 2.0 Calcium Procalcitonin Urine Color [place] Urine Appearance Clear Urine pH 5.5 Ur Specific [place] 1.025 Urine Protein Trace H Urine Glucose (UA) Negative Urine Ketones 1+ H Urine Occult Blood 1+ H Urine Nitrate Negative Urine Bilirubin Negative Urine Urobilinogen 0.2 Ur Leukocyte Esterase Negative Urine RBC 1-5/hpf Urine WBC None seen Ur Squamous Epith Cells 0-1 /hpf Urine Bacteria None seen Urine Mucus 2+ H Ur Culture Indicated? Cult not indicated Assessment & Plan Assessment & Plan narrative: Cooper Clayton is an 78-year-old male who presented to the emergency room with progressing fever of 100, increasing to 101 when the patient was brought to the floor. He was found to have a stage III pressure ulcer of his right heel and progressive erythema radiating towards his lower right knee. Patient will be admitted for treatment of a right lower extremity cellulitis. 1. Left lower extremity cellulitis, acute, present on admission * Patient was given 1 g ceftriaxone in the emergency department for empiric treatment of an infection of unknown origin * Patient will be initiated on vancomycin 1800 mg IV tonight, pharmacy to dose in the morning. * Blood cultures were drawn in the emergency department and are pending * Patient will undergo MRSA swab due to living in an assisted living facility. * Patient is not deemed to be septic at this time. 2. Fever, acute present on admission * Patient to receive rectal tylenol X 1, and receive q 6 hours as needed 3. Stage 2-3 pressure ulcer of the right lateral heel, POA * Wound care consult requested and appreciated 4. Lower right leg edema, POA * He had a compression wrap from the ankle to below the knee that was loose on presentation to the floor * Nursing understood his right leg is always 2-3 X the size of his left leg * Doppler ultrasound to rule out DVT/abscess 5. Acute metabolic encephalopathy likely secondary to lower extremity infection, present on admission * We will continue to monitor his lactate, CBC and chemistries in the morning * I have not provided fluids at this time due to his swelling of his lower ext remities however he will receive fluids with his antibiotics * Brain natriuretic peptide is 100, m 6. Hypertension, chronic, not present on admission * Appears that the patient takes furosemide for this * Patient will receive IV furosemide based on clinical observation of edema * Patient is currently normo-tensive 7. History of prostate cancer, with probable hypertrophy, chronic, POA * Patient takes tamsulosin 0.4 mg once daily, this will be continued once the patient is a little more awake Patient is admitted as an inpatient as his stay is anticipated to exceed 2 midnights. FEN: IV saline lock, regular diet, check chemistries in the a.m. VTE Prophylaxis: Enoxaparin 40 mg once daily Disposition: Unknown at this time Code status: Patient is a full code per records from [facility]. Admission time: 75 minutes Meds reconciled: Partial based on current med list Scores GCS Mildred coma scale eye opening: To sound [place] coma scale verbal response: Confused [place] coma scale motor response: Obey commands [place] coma scale total score: 13
--- NOTE | 2019-06-16 22:41 | PC.NURSE ---
Addendum entered by Rupinder Titus R.N. 06/17/19 00:22: MRSA nasal swab done. Clarified with DONALD García pt to be heplocked following vancomycin. Vancomycin infusing as ordered. Original Note: Pt to room [facility] drowsy, but rousable. Oral temp 101.3. Hospitalist DONALD García in to see patient. Requests wrap to RLE be removed and this was done. Significant 3-4+ pitting edema to RLE. Post tib and pedal pulse present with doppler. Erythema to RLE. Open wound to right heel approximately dime sized. Draining serosanguinous fluid with odor. Verbal order received to given 650 mg rectal tylenol and this was done. Multiple areas of excoriation around pt's anus. Cleansed with periwipes, photos taken and barrier cream applied prior to brief change. Stage II ulcer to left inner buttock observed. Photos taken by lashonda CHOI, George, of pt's right heel wound. RLE elevated on pillow x 1. Bed alarm in place.
[2019-06-16 22:56] LABS: B Type Natriuretic Peptide < 100 (<100)
[2019-06-17] VITALS (10 sets, daily range): BP systolic 100–134; BP diastolic 59–78; PULSE 69–89; RESP 16–20; TEMP 36.4–38.2; O2SAT 96–100
[2019-06-17] MEDS: VANCOMYCIN 1,800 MG in SODIUM CHLORIDE 0.9% 500 ML 250 ML IV (00:04)
--- NOTE | 2019-06-17 01:27 | PC.NURSE ---
Addendum entered by Lisbeth Cardenas R.N. 06/17/19 06:21: Pt had no urine output on shift, [employer] bladder scanned pt for an estimated volume 691. Called DONALD García with findings and recommended a hernandez over a straight cath due to patients somnulence on shift to which she ordered. Also ordered a repeat lactate and UA with culture if indicated from catheterization. Pt tolerated placement well, was a little more conversant but still very drowsy. Urine sent to lab for analysis. Addendum entered by Lisbeth Cardenas R.N. 06/17/19 01:35: Pt's nasal swab positive for MRSA, will put pt on contact precautions, Coordinator notified. Original Note: Shift note: Received pt from evening shift. Pt is drowsy but will respond to voice and touch with eye opening but quickly returns to a sleep appearing state, unable to respond to questions at time of assessment to gauge orientation status beyond appearing to respond to name. Assessment is notable for skin ulcer to right heel that has purulent drainage, right leg is significantly more edematous than left leg and is erythemic up to knee level. Pt also has excoriation to rectal and perianal area. Pt is tachycardiac @ HR of 94 with a fever of 100.7, bp stable at 113/78 with RA O2 saturation of 96. IV vancomyacin is currently infusing. Pt is a high fall risk d/t altered mental status, history of falls, and known weakness, bed alarm is activated and in view of nursing station, pt was unable to receive teaching reservationist light. Will continue to monitor for s/sx of worsening status, safety checks complete.
--- NOTE | 2019-06-17 03:09 | PC.NURSE ---
patient not wet just needed a new brief
--- NOTE | 2019-06-17 03:31 | ED_ITS ---
HPI - Neuro Symptoms/Deficit General Chief Complaint: Neuro Symptoms/Deficit Stated Complaint: Increased confusion Time Seen by Provider: 06/16/19 18:02 Source: patient, family and EMS Mode of arrival: EMS Limitations: no limitations History of Present Illness HPI Narrative: 78-year-old male nonsmoker presents by EMS from a local long term facility for evaluation of lethargy and confusion over the past day or 2. He has had no focal findings such is blurred or double vision, trouble with speech nor numbness tingling or focal weakness. He normally can get around certainly with assistance but has been so weak that he can barely sit at the bedside. He denies chest pain or shortness of breath and has had no significant cough. He has had a poor appetite and has been difficult to arouse. There is no new medications or dietary considerations. Patient has had similar episodes in the past due to urinary tract infections Onset (ago): day(s) Timing confirmed by: family member and caregiver Location: altered History of same: Yes Severity: moderate Quality: weak Relieving factors: none Exacerbating factors: none Context: gradual onset On Anticoagulants: No Associated symptoms: confusion and loss of appetite Treatments Prior to Arrival: none Related Data Home Medications Medication Instructions Recorded Confirmed aspirin 81 mg PO DAILY 12/15/18 06/16/19 cholecalciferol (vitamin D3) 1,000 unit PO DAILY 12/15/18 06/16/19 [Vitamin D3] cyanocobalamin (vitamin B-12) 500 mcg PO DAILY 12/15/18 06/16/19 [Vitamin B-12] furosemide 20 mg PO DAILY 06/16/19 06/16/19 Previous Rx's Medication Instructions Recorded tamsulosin [Flomax] 0.4 mg PO DAILY #30 cap 01/26/19 acetaminophen [Tylenol Arthritis 650 mg PO Q8H #60 tab 02/27/19 Pain] Allergies Allergy/AdvReac Type Severity Reaction Status Date / Time hydromorphone [From Dilaudid] Allergy Verified 06/16/19 18:02 Review of Systems Constitutional Denies chills, Denies fever(s), Reports lethargy and Reports weakness Eyes Denies change in vision, Denies eye discharge, Denies irritation and Denies loss of vision ENT Ears, Nose, Mouth, and Throat: Denies change in voice, Denies neck pain and Denies sore throat Cardiovascular Denies chest pain, Denies irregular heart rhythm, Denies lightheadedness, Denies palpitations, Denies dyspnea, Denies dyspnea on exertion and Denies orthopnea Respiratory Denies cough, Denies dyspnea, Denies dyspnea on exertion and Denies wheezing Gastrointestinal Gastrointestinal: Denies abdominal pain, Denies change in bowel habits, Denies diarrhea, Denies nausea and Denies vomiting Genitourinary Denies hematuria, Denies flank pain, Denies urinary incontinence and Denies ur inary urgency Musculoskeletal Denies neck pain Integumentary/Breasts Denies pruritus, Denies erythema, Denies rash and Denies wounds Neurologic Denies confusion, Denies loss of vision and Reports weakness Psychiatric Denies anxiety, Denies confusion, Denies depression, Denies homicidal ideation and Denies suicidal ideation Endocrine Denies palpitations Hematologic/Lymphatic Denies easy bruising Allergic/Immunologic Denies wheezing [facility] Medical History Stage III pressure ulcer of heel (Acute) Cellulitis and abscess of foot (Acute) Incontinence (Chronic) HTN (hypertension) (Chronic) Candidiasis of scrotum (Chronic) History of prostate cancer (Chronic) Surgical History History of prostatectomy (Resolved) History of squamous cell carcinoma excision (Resolved) Family History Other Family history non-contributory Social History household members: spouse and other Smoking Status: Never smoker alcohol intake: current Family History Other Family history non-contributory Social History household members: spouse and other Smoking Status: Never smoker alcohol intake: current Exam Narrative Exam Narrative: GENERAL: 78M appears unwell, tired, weak, not at baseline HEAD: Atraumatic. Normocephalic. No temporal or scalp tenderness. EYES: Pupils equal round and reactive. Extraocular motions intact. No scleral icterus. No injection or drainage. ENT: Dry membranes Nose without bleeding, purulent drainage or septal hematoma. Throat without erythema, tonsillar hypertrophy or exudate. Uvula midline. Airway patent. NECK: Trachea midline. No JVD or lymphadenopathy. Supple, nontender, no meningeal signs. CARDIOVASCULAR: Regular rate and rhythm without murmurs, gallops, or rubs. RESPIRATORY: Clear to auscultation. Breath sounds equal bilaterally. No wheezes, rales, or rhonchi. GASTROINTESTINAL: Abdomen soft, non-tender, nondistended. No hepato- splenomegaly, or palpable masses. No guarding. EXTREMITIES: No clubbing, cyanosis, or edema. No joint tenderness, effusion, or edema noted. BACK: Nontender without deformity or crepitance. No flank tenderness. NEURO: Somnalent, but easily arousable SKIN: No rash or erythema. Initial Vital Signs Initial Vital Signs: Vital Signs Temperature 98.3 F 06/16/19 18:03 Pulse Rate 88 06/16/19 18:03 Respiratory Rate 14 06/16/19 18:03 Blood Pressure 102/52 L 06/16/19 18:03 Pulse Oximetry 99 06/16/19 18:03 Course Orders Ordered: ED Orders 06/16/19 18:38 Blood Culture Stat 06/16/19 20:57 Urinalysis and Microscopic Stat 06/16/19 22:20 Education, smoking cessation ONGOING 06/16/19 22:24 Consult to Physician Routine 06/16/19 23:45 MRSA PCR Stat 06/17/19 05:00 Basic Metabolic Panel Routine Complete Blood Count AUTO DIFF Routine 06/17/19 22:38 periph venous low extrem bi Urgent Acetaminophen (Tylenol) 650 mg PO Q6HR PRN PRN Reason: As Needed for Fever/Mild Pain Aspirin (Aspirin Ec) 81 mg PO DAILY [facility] Enoxaparin Sodium (Lovenox) 40 mg SUBCUT DAILY [facility] Last Admin: 06/16/19 23:23 Dose: Not Given Vancomycin HCl (Vancomycin) 1,000 mg in 200 mls @ 200 mls/hr IV Q8H [facility] Ondansetron HCl (Zofran) 4 mg IV Q8HR PRN PRN Reason: Nausea And Vomiting Tamsulosin HCl (Flomax) 0.4 mg PO DAILY [facility] Vancomycin HCl (Vancomycin Per Pharmacy) 1 request MISC NOW ONE Stop: 06/16/19 22:46 Vancomycin HCl (Vancomycin Trough) 1 request MISC NOW ONE Stop: 06/17/19 11:31 Discontinued Medications Acetaminophen (Tylenol) 650 mg MA NOW ONE Stop: 06/16/19 22:42 Last Admin: 06/16/19 22:30 Dose: 650 mg Sodium Chloride (Normal Saline 0.9%) 500 mls @ 1,000 mls/hr IV BOLUS ONE Stop: 06/16/19 18:41 Last Infusion: 06/16/19 19:11 Dose: 0 mls/hr Admin: 06/16/19 18:26 Dose: 1,000 mls/hr Ceftriaxone Sodium/Dextrose (Rocephin) 1 gm in 50 mls @ 100 mls/hr IV NOW ONE Stop: 06/16/19 22:05 Last Infusion: 06/16/19 21:58 Dose: 0 mls/hr Infusion: 06/16/19 21:57 Dose: 0 mls/hr Admin: 06/16/19 21:56 Dose: 100 mls/hr Vancomycin HCl 1,800 mg/ (Sodium Chloride) 500 mls @ 250 mls/hr IV NOW ONE Stop: 06/16/19 22:46 Last Admin: 06/17/19 00:04 Dose: 250 mls/hr Reevaluation(s) Reevaluation #1: patient unable to ambulate even with assistance, not at baseline, no obvious or easily reversible cause Consultations Consultation #1: hospitalist happy to accept, will see patient at the bedside Vital Signs - 8 hr 06/16/19 20:24 06/16/19 20:34 06/16/19 22:30 Temperature 100.5 F H 101.3 F H Pulse Rate Pulse Rate [Orthostatic Lying] 88 Pulse Rate [Orthostatic Sitting] 89 Respiratory Rate Blood Pressure Blood Pressure [Orthostatic Lying] 107/61 Blood Pressure [Orthostatic Sitting] 107/59 L Pulse Oximetry 06/16/19 22:36 06/16/19 23:00 06/17/19 01:12 Temperature 101.3 F H 100.7 F H 100.7 F H Pulse Rate 89 89 Pulse Rate [Orthostatic Lying] Pulse Rate [Orthostatic Sitting] Respiratory Rate 20 16 Blood Pressure 101/53 L 113/78 Blood Pressure [Orthostatic Lying] Blood Pressure [Orthostatic Sitting] Pulse Oximetry 95 96 06/17/19 01:23 Temperature Pulse Rate Pulse Rate [Orthostatic Lying] Pulse Rate [Orthostatic Sitting] Respiratory Rate Blood Pressure Blood Pressure [Orthostatic Lying] Blood Pressure [Orthostatic Sitting] Pulse Oximetry 96 MDM - Neuro Symptoms/Deficit Lab Data Result diagrams: 06/16/19 18:18 06/16/19 18:18 Lab Results 06/16/19 06/16/19 06/16/19 Range/Units 18:18 18:18 18:18 WBC 7.3 (4.5-11.0) X10^3/uL RBC 4.21 L (4.5-5.9) X10^6/uL Hgb 12.8 L (13.5-17.5) g/dL Hct 38.1 L (41-53) % MCV 90.5 (80-100) fL MCH 30.4 (26-34) PG MCHC 33.6 (30-36) % RDW 15.2 H (11.6-14.8) % Plt Count 171 (150-400) X10^3/uL Neut % (Auto) 75.9 H (50-75) % Lymph % (Auto) 11.2 L (25-40) % [place] % (Auto) 11.0 (3-14) % Eos % (Auto) 1.6 L (2-4) % Baso % (Auto) 0.3 (0-2) % Neut # (Auto) 5600 (8784-3836) /uL Lymph # (Auto) 800 L (7704-5518) /uL [place] # (Auto) 800 (0-900) /uL Eos # (Auto) 100 (0-450) /uL Baso # (Auto) 0 (0-100) /uL Sodium 141 (137-145) mmol/L Potassium 3.6 (3.4-5.1) mmol/L Chloride 103 (98-107) mmol/L Carbon Dioxide 28 (22-32) mmol/L BUN 21 H (9-20) mg/dL Creatinine 0.80 (0.66-1.25) mg/dL Estimated GFR > 60.0 (>60) mL/min BUN/Creatinine Ratio 26.3 H (6-22) Glucose 119 H (80-110) mg/dL Lactate (0.7-2.1) mmol/L Calcium 8.9 (8.4-10.2) mg/dL B-Natriuretic Peptide (<100) Procalcitonin < 0.05 (<0.5) ng/mL Urine Color Urine Appearance Urine pH (4.5-8.0) Ur Specific [place] (1.000-1.035) Urine Protein (Negative) Urine Glucose (UA) (Negative) g/dL Urine Ketones (NEGATIVE) Urine Occult Blood (Negative) Urine Nitrate (Negative) Urine Bilirubin (NEGATIVE) Urine Urobilinogen (0.2) E.U./dL Ur Leukocyte Esterase (NEGATIVE) Urine RBC (0-5/HPF) Urine WBC (0-5/HPF) Ur Squamous Epith Cells (0-5/HPF) Urine Bacteria (None) Urine Mucus (Negative) Ur Culture Indicated? Nasal Screen MRSA (PCR) (Negative) 06/16/19 06/16/19 06/16/19 Range/Units 18:18 18:18 20:57 WBC (4.5-11.0) X10^3/uL RBC (4.5-5.9) X10^6/uL Hgb (13.5-17.5) g/dL Hct (41-53) % MCV (80-100) fL MCH (26-34) PG MCHC (30-36) % RDW (11.6-14.8) % Plt Count (150-400) X10^3/uL Neut % (Auto) (50-75) % Lymph % (Auto) (25-40) % [place] % (Auto) (3-14) % Eos % (Auto) (2-4) % Baso % (Auto) (0-2) % Neut # (Auto) (8277-4323) /uL Lymph # (Auto) (4003-5126) /uL [place] # (Auto) (0-900) /uL Eos # (Auto) (0-450) /uL Baso # (Auto) (0-100) /uL Sodium (137-145) mmol/L Potassium (3.4-5.1) mmol/L Chloride (98-107) mmol/L Carbon Dioxide (22-32) mmol/L BUN (9-20) mg/dL Creatinine (0.66-1.25) mg/dL Estimated GFR (>60) mL/min BUN/Creatinine Ratio (6-22) Glucose (80-110) mg/dL Lactate 2.0 (0.7-2.1) mmol/L Calcium (8.4-10.2) mg/dL B-Natriuretic Peptide < 100 (<100) Procalcitonin (<0.5) ng/mL Urine Color [place] Urine Appearance Clear Urine pH 5.5 (4.5-8.0) Ur Specific [place] 1.025 (1.000-1.035) Urine Protein Trace H (Negative) Urine Glucose (UA) Negative (Negative) g/dL Urine Ketones 1+ H (NEGATIVE) Urine Occult Blood 1+ H (Negative) Urine Nitrate Negative (Negative) Urine Bilirubin Negative (NEGATIVE) Urine Urobilinogen 0.2 (0.2) E.U./dL Ur Leukocyte Esterase Negative (NEGATIVE) Urine RBC 1-5/hpf (0-5/HPF) Urine WBC None seen (0-5/HPF) Ur Squamous Epith Cells 0-1 /hpf (0-5/HPF) Urine Bacteria None seen (None) Urine Mucus 2+ H (Negative) Ur Culture Indicated? Cult not indicated Nasal Screen MRSA (PCR) (Negative) 06/16/19 Range/Units 23:45 WBC (4.5-11.0) X10^3/uL RBC (4.5-5.9) X10^6/uL Hgb (13.5-17.5) g/dL Hct (41-53) % MCV (80-100) fL MCH (26-34) PG MCHC (30-36) % RDW (11.6-14.8) % Plt Count (150-400) X10^3/uL Neut % (Auto) (50-75) % Lymph % (Auto) (25-40) % [place] % (Auto) (3-14) % Eos % (Auto) (2-4) % Baso % (Auto) (0-2) % Neut # (Auto) (8798-0029) /uL Lymph # (Auto) (5843-4835) /uL [place] # (Auto) (0-900) /uL Eos # (Auto) (0-450) /uL Baso # (Auto) (0-100) /uL Sodium (137-145) mmol/L Potassium (3.4-5.1) mmol/L Chloride (98-107) mmol/L Carbon Dioxide (22-32) mmol/L BUN (9-20) mg/dL Creatinine (0.66-1.25) mg/dL Estimated GFR (>60) mL/min BUN/Creatinine Ratio (6-22) Glucose (80-110) mg/dL Lactate (0.7-2.1) mmol/L Calcium (8.4-10.2) mg/dL B-Natriuretic Peptide (<100) Procalcitonin (<0.5) ng/mL Urine Color Urine Appearance Urine pH (4.5-8.0) Ur Specific [place] (1.000-1.035) Urine Protein (Negative) Urine Glucose (UA) (Negative) g/dL Urine Ketones (NEGATIVE) Urine Occult Blood (Negative) Urine Nitrate (Negative) Urine Bilirubin (NEGATIVE) Urine Urobilinogen (0.2) E.U./dL Ur Leukocyte Esterase (NEGATIVE) Urine RBC (0-5/HPF) Urine WBC (0-5/HPF) Ur Squamous Epith Cells (0-5/HPF) Urine Bacteria (None) Urine Mucus (Negative) Ur Culture Indicated? Nasal Screen MRSA (PCR) Positive for mrsa H (Negative) Imaging Data Chest x-ray: Radiologist's impression: Jimi Montes 78 M 1940 [place] [address] XRay Report Signed Patient: Jimi Montes CMR#: [id number] : 8Acct:[id number] Age/Sex: 78 / MDate of Service: 06/16/19 Loc: ED Accession Number: [id number] Procedure: XR chest 1V Ordering Provider: Bryan Massey D.O. PROCEDURE: XR CHEST 1V INDICATIONS: weakness TECHNIQUE: One view of the chest was acquired. COMPARISON: [facility], , XR CHEST 1V, 01/17/2019, 20:48. FINDINGS: Surgical changes and devices: None. Lungs and pleura: Limited study with the right upper lung zone obscured by the patient's neck and mandible. The lateral costophrenic angles are incompletely included. The visualized lungs are clear. No definite pleural effusions. No evidence of left pneumothorax. Right lung is incompletely evaluated. Mediastinum: Mediastinal contours appear prominent likely due to rotation. Heart size is normal. Bones and chest wall: No suspicious bony lesions. Overlying soft tissues appear unremarkable. IMPRESSION: 1. Markedly limited study due to limited patient positioning. 2. Left lung is grossly clear. Right lung is incompletely evaluated. Recommend a repeat study when clinically feasible. Dictated by: Theodore Rivas M.D. on 06/16/2019 at 19:09 Approved by: Theodore Rivas M.D. on 06/16/2019 at 19:11 Discharge Plan Departure Patient Disposition: Admitted as Observation Clinical Impression: Acute metabolic encephalopathy, Acute dehydration Fever Qualifiers: Fever type: unspecified Qualified Code(s): R50.9 - Fever, unspecified Discharge Date/Time: 06/16/19 22:02 Interventions: ED Discharge Assessment Last Done: 06/16/19 21:58 Admit Date/Time: 06/16/19 21:44 Admit Provider: Mikayla García
[2019-06-17 06:01] LABS: Add Manual Diff / Slide Review NO; Basophils Absolute Auto 0 /uL (0-100); Basophils Percent Auto 0.3 % (0-2); Eosinophils Absolute Auto 100 /uL (0-450); Eosinophils Percent Auto 2.4 % (2-4); Hematocrit 33.9 % (41-53); Hemoglobin 11.6 g/dL (13.5-17.5); Lymphocytes Absolute Auto 800 /uL (1100-4500); Lymphocytes Percent Auto 16.2 % (25-40); Mean Corpuscular HGB Conc 34.3 % (30-36); Mean Corpuscular Hemoglobin 30.8 PG (26-34); Mean Corpuscular Volume 89.8 fL (80-100); Monocytes Absolute Auto 600 /uL (0-900); Monocytes Percent Auto 11.9 % (3-14); Neutrophils Absolute Auto 3500 /uL (1500-7000); Neutrophils Percent Auto 69.2 % (50-75); Platelet Count 136 X10^3/uL (150-400); Red Blood Cell Count 3.78 X10^6/uL (4.5-5.9); Red Cell Distribution Width 14.6 % (11.6-14.8)
[2019-06-17 06:09] LABS: BUN Creatinine Ratio 24.3 (6-22); Blood Urea Nitrogen 17 mg/dL (9-20); Calcium 8.1 mg/dL (8.4-10.2); Carbon Dioxide 26 mmol/L (22-32); Chloride 106 mmol/L (98-107); Estimated Glomerular Filt Rate > 60.0 mL/min (>60); Glucose 91 mg/dL (80-110); HEMOLYSIS < 15 (0-50); Potassium 3.1 mmol/L (3.4-5.1); Sodium 139 mmol/L (137-145)
[2019-06-17 06:27] LABS: Bacteria Urine None Seen; WBC Urine None Seen (0-5/HPF)
[2019-06-17 06:29] LABS: Appearance Urine UA CLEAR; Bilirubin Urine UA NEGATIVE (NEGATIVE); Color Urine UA YELLOW; Glucose Urine UA NEGATIVE (Negative); Ketones Urine UA 1+ (NEGATIVE); Leukocyte Esterase Urine UA NEGATIVE (NEGATIVE); Nitrite Urine UA NEGATIVE (Negative); Occult Blood Urine UA 1+ (Negative); Protein Urine UA TRACE (Negative); Specific Gravity Urine UA 1.025 (1.000-1.035); Urobilinogen Urine UA 0.2 E.U./dL (0.2); pH Urine UA 5.5 (4.5-8.0)
[2019-06-17 06:36] LABS: RBC Urine 1-5/HPF (0-5/HPF); Squamous Epithelial Cell Urine 0-1 /HPF (0-5/HPF)
[2019-06-17 06:37] LABS: Mucus Urine 2+ (Negative)
[2019-06-17 06:38] LABS: Culture Indicated Urine Cult Not Indicated
[2019-06-17 06:48] LABS: Lactate (Lactic Acid) 0.6 mmol/L (0.7-2.1)
--- NOTE | 2019-06-17 08:22 | P.PN_ITS ---
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 The patient is resting in bed comfortably. He is alert oriented to person and place. He has probable mild to moderate dementia with short-term memory recall deficit. In fact, he was recently referred to Neurology for further evaluation of cognitive impairment/mild dementia. He is incontinent of both bowel and bladder and has perineal tissue breakdown. His right lower extremity has chronic lymphedema with a new heel wound that appears to be slightly infected and cellulitic. 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 He has been slowly declining in regard to his mobility, especially over the last week, and has required significant assistance with 3 person max assist to get up out of bed. He denies headache, shortness of breath, chest pain, abdominal pain, nausea, vomiting, fever, chills, dysuria, diarrhea or constipation. He is incontinent and voiding via Harrison catheter. He has not yet had a bowel movement since admission and will implement an as needed bowel regimen. Patient is predominantly in bed as he requires significant assistance to get up out of bed. Plan to obtain PT/OT. Exam Vital Signs (past 8 hours): - 06/17/19 01:12 06/17/19 01:23 06/17/19 06:05 Temperature 100.7 F H 98.0 F Pulse Rate 89 75 Respiratory Rate 16 16 Blood Pressure 113/78 110/66 Pulse Oximetry 96 96 96 06/17/19 07:47 Temperature Pulse Rate Respiratory Rate Blood Pressure Pulse Oximetry 96 Oxygen Delivery Method Room Air Narrative Exam Narrative: General: Elderly male lying in bed and in no acute distress, appears chronically ill, mild to moderate dementia but appropriately interactive. HEENT: Normocephalic, atraumatic. External ears without defect. Pupils equal, round, and reactive to light and accommodation. Anicteric sclerae, moist conjunctivae, and no lid lag. Neck: Supple with full range of motion. No lymphadenopathy or thyromegaly. Cardiovascular: Regular rate and rhythm without murmurs, rubs, or gallops appreciated Pulmonary: Clear to auscultation bilaterally without crackles, wheezes, or r honchi. Normal respiratory effort with no use of accessory muscles. Abdomen: Soft, bowel sounds present, non-tender, non-distended. No hepatosplenomegaly or masses appreciated. Genitourinary: Harrison catheter in place. Extremities: No clubbing or cyanosis. Dependent edema bilaterally to mid thighs . Right lower extremity lymphedema with mild cellulitis and wound on posterior plantar aspect of heel that appears to be a mechanical injury. Does not appear to be a pressure ulceration. Skin: Normal temperature, turgor, and texture; no rash, ulcers, or subcutaneous nodules appreciated. Neurological: Cranial nerves grossly intact. Generalized weakness and physical deconditioning. Psychiatric: Alert oriented to person and place only. Patient is well-known to me and appears to be at his baseline mentation. Probable mild to moderate dementia with short-term memory recall deficit. Objective Labs Result Diagrams: 06/17/19 05:36 06/17/19 05:36 Labs: Laboratory Results - last 24 hr 06/16/19 06/16/19 06/16/19 18:18 18:18 18:18 WBC 7.3 RBC 4.21 L Hgb 12.8 L Hct 38.1 L MCV 90.5 MCH 30.4 MCHC 33.6 RDW 15.2 H Plt Count 171 Neut % (Auto) 75.9 H Lymph % (Auto) 11.2 L [place] % (Auto) 11.0 Eos % (Auto) 1.6 L Baso % (Auto) 0.3 Neut # (Auto) 5600 Lymph # (Auto) 800 L [place] # (Auto) 800 Eos # (Auto) 100 Baso # (Auto) 0 Sodium 141 Potassium 3.6 Chloride 103 Carbon Dioxide 28 BUN 21 H Creatinine 0.80 Estimated GFR > 60.0 BUN/Creatinine Ratio 26.3 H Glucose 119 H Lactate Calcium 8.9 B-Natriuretic Peptide Procalcitonin < 0.05 Urine Color Urine Appearance Urine pH Ur Specific [place] Urine Protein Urine Glucose (UA) Urine Ketones Urine Occult Blood Urine Nitrate Urine Bilirubin Urine Urobilinogen Ur Leukocyte Esterase Urine RBC Urine WBC Ur Squamous Epith Cells Urine Bacteria Urine Mucus Ur Culture Indicated? Nasal Screen MRSA (PCR) 06/16/19 06/16/19 06/16/19 18:18 18:18 20:57 WBC RBC Hgb Hct MCV MCH MCHC RDW Plt Count Neut % (Auto) Lymph % (Auto) [place] % (Auto) Eos % (Auto) Baso % (Auto) Neut # (Auto) Lymph # (Auto) [place] # (Auto) Eos # (Auto) Baso # (Auto) Sodium Potassium Chloride Carbon Dioxide BUN Creatinine Estimated GFR BUN/Creatinine Ratio Glucose Lactate 2.0 Calcium B-Natriuretic Peptide < 100 Procalcitonin Urine Color [place] Urine Appearance Clear Urine pH 5.5 Ur Specific [place] 1.025 Urine Protein Trace H Urine Glucose (UA) Negative Urine Ketones 1+ H Urine Occult Blood 1+ H Urine Nitrate Negative Urine Bilirubin Negative Urine Urobilinogen 0.2 Ur Leukocyte Esterase Negative Urine RBC 1-5/hpf Urine WBC None seen Ur Squamous Epith Cells 0-1 /hpf Urine Bacteria None seen Urine Mucus 2+ H Ur Culture Indicated? Cult not indicated Nasal Screen MRSA (PCR) 06/16/19 06/17/19 06/17/19 23:45 05:36 05:36 WBC 5.0 RBC 3.78 L Hgb 11.6 L Hct 33.9 L MCV 89.8 MCH 30.8 MCHC 34.3 RDW 14.6 Plt Count 136 L Neut % (Auto) 69.2 Lymph % (Auto) 16.2 L [place] % (Auto) 11.9 Eos % (Auto) 2.4 Baso % (Auto) 0.3 Neut # (Auto) 3500 Lymph # (Auto) 800 L [place] # (Auto) 600 Eos # (Auto) 100 Baso # (Auto) 0 Sodium 139 Potassium 3.1 L Chloride 106 Carbon Dioxide 26 BUN 17 Creatinine 0.70 Estimated GFR > 60.0 BUN/Creatinine Ratio 24.3 H Glucose 91 Lactate Calcium 8.1 L B-Natriuretic Peptide Procalcitonin Urine Color Urine Appearance Urine pH Ur Specific [place] Urine Protein Urine Glucose (UA) Urine Ketones Urine Occult Blood Urine Nitrate Urine Bilirubin Urine Urobilinogen Ur Leukocyte Esterase Urine RBC Urine WBC Ur Squamous Epith Cells Urine Bacteria Urine Mucus Ur Culture Indicated? Nasal Screen MRSA (PCR) Positive for mrsa H 06/17/19 06/17/19 06:20 06:23 WBC RBC Hgb Hct MCV MCH MCHC RDW Plt Count Neut % (Auto) Lymph % (Auto) [place] % (Auto) Eos % (Auto) Baso % (Auto) Neut # (Auto) Lymph # (Auto) [place] # (Auto) Eos # (Auto) Baso # (Auto) Sodium Potassium Chloride Carbon Dioxide BUN Creatinine Estimated GFR BUN/Creatinine Ratio Glucose Lactate 0.6 L Calcium B-Natriuretic Peptide Procalcitonin Urine Color [place] Urine Appearance Clear Urine pH 5.5 Ur Specific [place] 1.025 Urine Protein Trace H Urine Glucose (UA) Negative Urine Ketones 1+ H Urine Occult Blood 1+ H Urine Nitrate Negative Urine Bilirubin Negative Urine Urobilinogen 0.2 Ur Leukocyte Esterase Negative Urine RBC 1-5/hpf Urine WBC None seen Ur Squamous Epith Cells 0-1 /hpf Urine Bacteria None seen Urine Mucus 2+ H Ur Culture Indicated? 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 1. Acute metabolic encephalopathy, on probable [id number] dementia, secondary to mild right lower extremity cellulitis and wound infection, present on admission. Resolved. -Patient presented with confusion, increasing lethargy, weakness, fever and slow decline at assisted living facility. -Previous CT and MRI demonstrate chronic age related changes, cerebral volume loss, and microvascular ischemic changes indicative of likely vascular dementia. -Ordered physical and occupational therapy evaluation and treatment, pending. Plan to have occupational therapy perform SLUMS examination to assess severity of dementia. -Treated underlying cause as below with resolution of metabolic encephalopathy. 2. Acute mild right leg cellulitis and heel wound infection, secondary to probable mechanical injury and chronic lymphedema, present on admission. Stable. -Right lower extremity has mild cellulitic changes with new wound on posterior plantar aspect of heel. No signs of sepsis. -Initial WBC 7.3. Procalcitonin < 0.05. -Received 1 L of NS in ED. -Received ceftriaxone 1 g IV x1 in ED. Patient was then started on vancomycin with dosing per pharmacist as he is colonized chronically with MRSA. -Blood cultures x2 have no growth to date. -Continue conservative treatment with elevation as high as tolerated and compression with PRITI wrap from ankle to knee. -Continue diuresis as patient has significant lymphedema and bilateral dependent edema which undoubtedly contribute to and delay wound healing. Started furosemide 20 mg IV daily and will plan to evaluate diuresis and edema daily. -Ordered wound care consultation, pending. Not readily available on the weekends and will have to wait until Wednesday06/19/2019. 3. MRSA colonization, chronic, present on admission. Stable. -Continue contact precautions. -Once acute infectious process has resolved consider a red occasion of MRSA with mupirocin applied twice daily to nares. 4. Hypertension, chronic, present on admission. Stable. -Continue diuresis as above. 5. History of prostate cancer. -Presumed to be in remission. -Continue tamsulosin 0.4 mg daily. Disposition: Patient likely to continue to need significant assistance with wound management and overall care, therefore, will discharge to correction facility in 1-2 days once his lower extremity cellulitis and infected wound are improving. Quality VTE Deep Vein Thrombosis/Pulmonary Embolism Present on Admission: No
[2019-06-17 08:35] LABS: Magnesium 1.8 mg/dL (1.6-2.3)
[2019-06-17] MEDS: POTASSIUM CHLORIDE 60 MEQ in SODIUM CHLORIDE 0.9% 500 ML 88.333 ML IV (08:37)
[2019-06-17] MEDS: ENOXAPARIN 40 MG/0.4 ML SYRINGE SUBCUT (08:44)
[2019-06-17] MEDS: ASPIRIN EC 81 MG TABLET PO (08:44)
[2019-06-17] MEDS: TAMSULOSIN 0.4 MG CAPSULE PO (08:44)
--- NOTE | 2019-06-17 09:50 | PC.NURSE ---
Day shift: Conversation with Pt after breakfast went well as he is A&Ox2. Knows name and birthday as well of situation and place. Did not know the date though. Reportedf that his rt side had been weak since the 80's and his right leg swelling is r/t surgery he had years ago. He ate his breakfast and appears to be content and had questions about what the plan is for his rt leg. Explained that IV antibiotics will be used to fight the infection. VS WNL. RA 97%. Bed alarm is on. Door to room is open and across from RN station. Denies any chest pain or generalized pain. Stated that his RLE is uncomfortable but doesn't hurt.
--- NOTE | 2019-06-17 11:15 | PC.NURSE ---
Day shift: Elevated RLE per MD instructions. Pt tolerated it well. Also replaced chux pad. Wound on Pt's heal is ANUM. Call light in reach and bed alarm on.
[2019-06-17] MEDS: VANCOMYCIN 1,000 MG/200 ML PIGGYBACK 200 MG IV ×2 (11:38→20:12)
--- NOTE | 2019-06-17 11:51 | CM.DANOTE ---
Addendum entered by Lesley Perez LPN 06/17/19 16:32: Called by Dr. Duff with request to join her in discussion with pt and his Berna. POC discussed and a new d/c plan was eventually agreed upon by all. Due to lateness of hour will document details in the morning. Original Note: Discharge Planning/Care Management DCP: assessment: case received, EMR reviewed and met with pt. Introduced self and role. Pt is an 78 year old male who admitted yesterday to care of hospitalist team. Payer: Medicare and AARP PCP: Dr. Van Alarcon. Pt did confirm that he lives at [facility] and that his Berna stays in [place] but that they have a home in [place]. Spoke then with Lacie FUENTES Licensed [employer] Real [employer] Appraiser at [facility]. She confirmed above, says Berna actually lives on an ongoing basis at the [facility], the best way to contact her is by calling the motel. She says pt transitioned from an assisted unit to the memory care/[facility] unit a couple months ago. His cognitive and his overall care needs had been increasing. An an outpt appt with geriatric psychiatric practitioner had been set up, it was cancelled as pt felt too weak to go but another appt is planned. At this point [facility] expects to take pt back when stable for same. Will be following. Dr. Duff will see pt today. Advanced directive, confirm from FAMILY Start: 06/16/19 22:55 Freq: Q24H Status: Active Protocol: Document 06/17/19 08:52 YAD (Rec: 06/17/19 08:52 YAD [id number]) Advance Directive, confirm on record Time 08:52 Person contacted patient Copy received No Document 06/17/19 08:52 YAD (Rec: 06/17/19 08:52 YAD [id number]) Advance Directive, confirm on record Time 08:52 Person contacted patient Copy received No CM Discharge Assessment Start: 06/17/19 11:49 Freq: Status: Active Protocol: Document 06/17/19 11:49 ITV (Rec: 06/17/19 11:51 ITV [id number]) Discharge Planning Assessment Advance Directives? Yes History Provided By Patient Medical Record Prior Living Arrangements Assisted Living Facility Name Admitted From: [facility] with ADL's No Comment . Whiteboard Updated in Patient Room with Yes name and ext. # of Quality Assurance Group Leader Review Status In Process
--- NOTE | 2019-06-17 13:58 | PC.NURSE ---
Patient slept through lunch and was not interested in the food when he woke up.
[2019-06-17] MEDS: FUROSEMIDE 40 MG/4 ML VIAL 20 MG IV (17:15)
[2019-06-17 17:48] LABS: Procalcitonin < 0.05 ng/mL (<0.5)
--- NOTE | 2019-06-17 21:39 | PC.NURSE ---
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 , Berna is staying at the [facility], and is available for calls if needed, . Pt reports bilat neuropathy, can't feel the stage III ulcer/wound to right heel, heel is in a egg foam bootie with 4x4 gauze pads to heel due to weeping, R foot is severely edemous, with yeasty odor, R calf and thigh are 3-4+ elijah edema, top of thigh is firm. Left leg 1+ pitting edema. 1744; 20mg lasix IV given, BP 106/57, and zakiya wrap to calf, per Dr Duff orders, 1999 BP 116/66, PP+. 98%RA, LS clear and dim. LFA @ TKO adn Vanco. Right groin/leg fold maceration barrier cream, scrotum pink, coccyx/rectum blanchable reddened, barrier cream. Harrison patent and draining clear yellow urine. Q-2 turns. MAX assist/antoine. Plan is for pt to stay until , then transfer to skilled facility with wound consult on Wed. Pt reports comfortable, denies pain and nausea. Bed alarm on.
[2019-06-18] VITALS (9 sets, daily range): BP systolic 107–137; BP diastolic 51–79; PULSE 69–85; RESP 16–20; TEMP 36.4–37.4; O2SAT 95–100
[2019-06-18] MEDS: VANCOMYCIN 1,000 MG/200 ML PIGGYBACK 200 MG IV ×2 (03:28→20:32)
[2019-06-18] MEDS: SODIUM CHLORIDE 0.9% 250 ML 21 ML IV (03:29)
[2019-06-18] MEDS: SODIUM CHLORIDE 0.9% FLUSH 10 ML IV ×3 (03:30→20:33)
--- NOTE | 2019-06-18 04:40 | PC.NURSE ---
0400 Patient arouses easily but is confused; did know his name and date. Speech is soft spoken and mumbled making it difficult to understand. Breath sounds diminished but CTA with RA sat of 98%. HRR. Denies nausea. BT present and abdomen is soft. Indwelling catheter is patent with pale yellow urine. Has bruising on coccyx and right upper, posterior thigh. Right groin is reddened and excoriated. Scrotum is reddened. Has 3+ edema in right LE with thigh being firm to touch and foot being soft. Right LE is wrapped with zakiya. Has ulcer on right heel which measures approximately 3.5cm around with a 1 cm open area which is draining serosanguinous drainage. Open area is surrounded by yellow tissue and erythema around entire area. Leg is elevated on pillows and foot is in foam heel protector. When asked about pain he states usual and when asked to rate severity states 7-8/10 but declines offer of pain medication. Needing to be repositioned q2h as not able to turn himself. Has not been out of bed on this shift but seems to be generally weak. Fall risk score is high and bed alarm is activated. Is on contact isolation due to being MRSA positive on nasal swab. No wound culture has been done as yet; will discuss with hospitalist.
[2019-06-18 07:55] LABS: Add Manual Diff / Slide Review NO; Basophils Absolute Auto 0 /uL (0-100); Basophils Percent Auto 0.5 % (0-2); Eosinophils Absolute Auto 200 /uL (0-450); Eosinophils Percent Auto 2.8 % (2-4); Hematocrit 36.5 % (41-53); Hemoglobin 12.5 g/dL (13.5-17.5); Lymphocytes Absolute Auto 900 /uL (1100-4500); Lymphocytes Percent Auto 14.7 % (25-40); Mean Corpuscular HGB Conc 34.3 % (30-36); Mean Corpuscular Hemoglobin 30.3 PG (26-34); Mean Corpuscular Volume 88.5 fL (80-100); Monocytes Absolute Auto 700 /uL (0-900); Monocytes Percent Auto 11.6 % (3-14); Neutrophils Absolute Auto 4200 /uL (1500-7000); Neutrophils Percent Auto 70.4 % (50-75); Platelet Count 147 X10^3/uL (150-400); Red Blood Cell Count 4.12 X10^6/uL (4.5-5.9); Red Cell Distribution Width 14.3 % (11.6-14.8)
[2019-06-18 08:07] LABS: Alanine Aminotransferase 35 IU/L (21-72); Albumin 3.2 g/dL (3.5-5.0); Albumin Globulin Ratio 1.1 (1.0-2.8); Alkaline Phosphatase 82 U/L (38-126); Aspartate Aminotransferase 49 IU/L (17-59); BUN Creatinine Ratio 18.6 (6-22); Bilirubin Total 0.7 mg/dL (0.2-1.3); Blood Urea Nitrogen 13 mg/dL (9-20); Calcium 8.3 mg/dL (8.4-10.2); Carbon Dioxide 25 mmol/L (22-32); Chloride 106 mmol/L (98-107); Estimated Glomerular Filt Rate > 60.0 mL/min (>60); Globulin 2.8 g/dL (1.7-4.1); Glucose 96 mg/dL (80-110); HEMOLYSIS < 15 (0-50); Magnesium 1.7 mg/dL (1.6-2.3); Potassium 3.5 mmol/L (3.4-5.1); Sodium 139 mmol/L (137-145)
[2019-06-18 08:28] LABS: Procalcitonin < 0.05 ng/mL (<0.5)
[2019-06-18] MEDS: ASPIRIN EC 81 MG TABLET PO (08:36)
[2019-06-18] MEDS: TAMSULOSIN 0.4 MG CAPSULE PO (08:36)
[2019-06-18] MEDS: ENOXAPARIN 40 MG/0.4 ML SYRINGE SUBCUT (08:36)
[2019-06-18] MEDS: FUROSEMIDE 40 MG/4 ML VIAL 20 MG IV (08:37)
[2019-06-18] MEDS: ACETAMINOPHEN 325 MG TABLET 650 MG PO (08:49)
--- NOTE | 2019-06-18 10:38 | P.PN_ITS ---
Subjective Date Patient Seen: 06/18/19 Interval history: Jimi Montes is an 78-year-old male with a past medical history significant for hypertension, prostate cancer status post prostatectomy and inguinal lymph node dissection with chronic right lower extremity lymphedema and urinary retention who presented to the ED from [facility] due to increasing lethargy and weakness. The patient is resting in bed comfortably. He is alert oriented to person and place. He undoubtedly has at least moderate dementia with short-term memory recall deficit and was recently referred to Neurology for further evaluation of dementia. Discussed dementia in depth yesterday afternoon with the patient and his spouse present. The patient has no recollection of that conversation today. In fact, he does not recognize me initially and states my smile changed. Per patient's he often hallucinates and staff reports he [place]. He is incontinent of both bowel and bladder. A Harrison catheter was placed as patient has mild tissue breakdown from chronic moisture of perineum related to incontinence/brief use. His right lower extremity has chronic lymphedema with a new heel wound which appears infected and mildly cellulitic but has vastly improved today in regard to both edema and erythema. 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 He has been slowly declining in regard to his mobility, especially over the last week, and has required significant assistance with 3 person max assist to get up out of bed at [facility]. Ordered PT/OT. He denies headache, shortness of breath, chest pain, abdominal pain, nausea, vomiting, fever, chills, dysuria, diarrhea or constipation. He is incontinent and voiding via Harrison catheter. He has not yet had a bowel movement since admission and a bowel regimen has been implemented. Patient is predominantly in bed as he requires significant assistance to get up out of bed. Exam Vital Signs (past 8 hours): - 06/18/19 03:55 06/18/19 09:00 Temperature 99 F 98.1 F Pulse Rate 73 85 Respiratory Rate 20 18 Blood Pressure 137/79 107/66 Pulse Oximetry 98 95 Oxygen Delivery Method Room Air Oxygen Flow Rate 0 Narrative Exam Narrative: General: Elderly male lying in bed and in no acute distress, appears chronically ill, mild to moderate dementia with short-term memory recall deficit but appropriately interactive otherwise. HEENT: Normocephalic, atraumatic. External ears without defect. Pupils equal, round, and reactive to light. Anicteric sclerae, moist conjunctivae, and no lid lag. Neck: Supple with full range of motion. No lymphadenopathy or thyromegaly. Cardiovascular: Regular rate and rhythm without murmurs, rubs, or gallops appreciated Pulmonary: Clear to auscultation bilaterally without crackles, wheezes, or rhonchi. Normal respiratory effort with no use of accessory muscles. Abdomen: Soft, bowel sounds present, non-tender, non-distended. No hepatosp lenomegaly or masses appreciated. Genitourinary: Harrison catheter in place. Extremities: No clubbing or cyanosis. Dependent edema bilaterally to mid thighs. Right lower extremity modertate lymphedema with mild cellulitis vastly improved. PRITI wrap in place from ankle to knee. Wound on posterior plantar aspect of heel that appears to be a mechanical injury. Does not appear to be a pressure ulceration. Skin: Normal temperature, turgor, and texture; no rash, ulcers, or subcutaneous nodules appreciated. Neurological: Cranial nerves grossly intact. Generalized weakness and physical deconditioning. Psychiatric: Alert oriented to person and place only. Patient is well-known to me and appears to be at his baseline mentation. Undoubtedly patient has moderate dementia with short-term memory recall deficit and intermittent hallucination. Objective Labs Result Diagrams: 06/18/19 07:45 06/18/19 07:45 Labs: Laboratory Results - last 24 hr 06/17/19 06/18/19 06/18/19 05:36 07:45 07:45 WBC 6.0 RBC 4.12 L Hgb 12.5 L Hct 36.5 L MCV 88.5 MCH 30.3 MCHC 34.3 RDW 14.3 Plt Count 147 L Neut % (Auto) 70.4 Lymph % (Auto) 14.7 L [place] % (Auto) 11.6 Eos % (Auto) 2.8 Baso % (Auto) 0.5 Neut # (Auto) 4200 Lymph # (Auto) 900 L [place] # (Auto) 700 Eos # (Auto) 200 Baso # (Auto) 0 Sodium Potassium Chloride Carbon Dioxide BUN Creatinine Estimated GFR BUN/Creatinine Ratio Glucose Calcium Magnesium Total Bilirubin AST ALT Alkaline Phosphatase Total Protein Albumin Globulin Albumin/Globulin Ratio Procalcitonin < 0.05 < 0.05 06/18/19 07:45 WBC RBC Hgb Hct MCV MCH MCHC RDW Plt Count Neut % (Auto) Lymph % (Auto) [place] % (Auto) Eos % (Auto) Baso % (Auto) Neut # (Auto) Lymph # (Auto) [place] # (Auto) Eos # (Auto) Baso # (Auto) Sodium 139 Potassium 3.5 Chloride 106 Carbon Dioxide 25 BUN 13 Creatinine 0.70 Estimated GFR > 60.0 BUN/Creatinine Ratio 18.6 Glucose 96 Calcium 8.3 L Magnesium 1.7 Total Bilirubin 0.7 AST 49 ALT 35 Alkaline Phosphatase 82 Total Protein 6.0 L Albumin 3.2 L Globulin 2.8 Albumin/Globulin Ratio 1.1 Procalcitonin Assessment & Plan Assessment & Plan narrative: Jimi Montes is an 78-year-old male with a past medical history significant for hypertension, prostate cancer status post prostatectomy and inguinal lymph node dissection with chronic right lower extremity lymphedema and urinary retention who presented to the ED from [facility] living facility due to increasing lethargy and weakness. 1. Acute metabolic encephalopathy on probable moderate vascular dementia, se condary to mild right lower extremity cellulitis and wound infection, present on admission. Resolved. -Patient presented with confusion, increasing lethargy, weakness, fever and slow decline at assisted living facility. Patient has probable moderate dementia with short-term memory recall deficit and intermittent hallucinations. -Previous CT and MRI demonstrate chronic age related changes, cerebral volume loss, and microvascular ischemic changes indicative of likely vascular dementia. -Ordered physical and occupational therapy evaluation and treatment, pending. Plan to have occupational therapy perform SLUMS examination to assess severity of dementia. -Treated underlying cause as below with resolution of metabolic encephalopathy. 2. Acute mild right leg cellulitis and heel wound infection, secondary to probable mechanical injury and chronic lymphedema, present on admission. Stable. -Right lower extremity has mild cellulitic changes with new wound that appears mechanical on posterior plantar aspect of heel. No signs of sepsis. -Initial WBC 7.3. Procalcitonin < 0.05. -Received 1 L of NS in ED. -Received ceftriaxone 1 g IV x1 in ED. Patient was then started on vancomycin with dosing per pharmacist as he is colonized chronically with MRSA. -Blood cultures x2 have no growth to date. -Continue conservative treatment with elevation as high as tolerated and compression with PRITI wrap from ankle to knee. -Continue diuresis as patient has significant lymphedema and bilateral dependent edema which undoubtedly contribute to and delay wound healing. Continued furosemide 20 mg IV daily and will likely switch to PO tomorrow. -Ordered wound care consultation, pending. Not readily available on the weekends and will have to wait until Wednesday06/19/2019. 3. MRSA colonization, chronic, present on admission. Stable. -Continue contact precautions. -Once acute infectious process has resolved consider a red occasion of MRSA with mupirocin applied twice daily to nares x 10 days. 4. Hypertension, chronic, present on admission. Stable. -Continue diuresis as above. 5. History of prostate cancer. -Presumed to be in remission. -Continue tamsulosin 0.4 mg daily. Disposition: Patient likely to continue to need significant assistance with wound management and overall care, therefore, will discharge to group home facility in 1-2 days once accepted. Quality VTE Deep Vein Thrombosis/Pulmonary Embolism Present on Admission: No
[2019-06-18] MEDS: POLYETHYLENE GLYCOL 3350 17 GM POWD.PACK PO (11:18)
--- NOTE | 2019-06-18 11:34 | PT.IIE ---
Current Diagnoses Cellulitis of right lower limb (06/16/19) Surgical History (Last Reviewed 06/17/19 @ 03:30 by Bryan Massey DO) History of prostatectomy (Resolved) History of squamous cell carcinoma excision (Resolved) Medical History (Last Updated 06/17/19 @ 06:44 by DONALD Garcia) Hypokalemia (Acute) MRSA cellulitis of right foot (Acute) Stage III pressure ulcer of heel (Acute) Cellulitis and abscess of foot (Acute) Incontinence (Chronic) HTN (hypertension) (Chronic) Candidiasis of scrotum (Chronic) History of prostate cancer (Chronic) Physical Therapy Inpatient Evaluation/Re-Eval M1 PT/OT-IP Prior Functional Status Start: 06/18/19 11:07 Freq: NEEDED Status: Active Protocol: Document 06/18/19 11:07 [facility] (Rec: 06/18/19 11:33 [facility] [id number]) Medical Review Prior Functional Status Medical History Reviewed Yes Communication [place] Mobility and Gait Pt was 3 person assist recently at [facility] Activities of Daily Living and IADL's Pt unreliable historian but does note he gets help with dressing Social History Living Arrangements Assisted Living Number of Floors (Floors) One Floor Number of Stairs To Enter/Railing? none lives at [facility] Home Equipment Front Wheel Walker Additional Social History Comment Lives at [facility] M2 PT-IP Current Condition Start: 06/18/19 11:07 Freq: NEEDED Status: Active Protocol: Document 06/18/19 11:07 [facility] (Rec: 06/18/19 11:33 [facility] [id number]) Physical Therapy Current Condition Current Condition Evaluation Date 06/18/19 Treatment Diagnosis RLE cellulitis, weakness, Weight Bearing Status Weight Bearing Status Touch Down Weight Bearing Allowed Weight Bearing Amount (enter % MD suggested to try to keep pt or #) (%) off heel as much as possible, awaiting wound care consult M3 PT-IP Subjective Start: 06/18/19 11:07 Freq: NEEDED Status: Active Protocol: Document 06/18/19 11:07 [facility] (Rec: 06/18/19 11:33 [facility] [id number]) Subjective Physical Therapy Visit Type Type Initial Evaluation Visit Start Time 09:10 Visit Stop Time 09:50 Total Visit Minutes 40 Physical Therapy Visit Comments Patient Comments Pt agreeable to get up M4 PT-IP Mobility and Gait Start: 06/18/19 11:07 Freq: NEEDED Status: Active Protocol: Document 06/18/19 11:07 [facility] (Rec: 06/18/19 11:33 [facility] [id number]) PT-Bed Mobility Assessment Supine to Sit Supine to Sit Maximum Assistance 2 Person Assistance Head of Bed Elevated Bedrails Scooting Scooting to Edge of Bed Maximum Assistance PT-Transfer Assessment Sit to and From Stand Sit to and from Stand Total Assistance 2 Person Assistance Use of Upper Extremities Equipment Transfer Assistive Device Bed Rail Front Wheeled Walker Transfers Transfer Destination Chair Transfer Technique Stand Pivot Transfer Ability Level of Assist Maximum Assistance 2 Person Assistance Use of Upper Extremities Comments Mobility Comments Pt required CGA to max A sitting EOB. He required significant cueing to sit up and remain upright. Pt required max A x3 for sit to stand and max A x2 to stay standing while pericare completed. Pt unable to follow commands appropriately for hand placement of LE placement . Single step commands were used and pt required assistance of placing his hand to where he was cued. He was unable to keep RLE off ground and cloud boot was left on for trasnfer as wound was not dressed and had gauze in cloud boot. Attempted to shift pt weight to left and cue to stay off RLE but unsucessful. Pt returned to sitting after standing at [facility] for about 10 sec for pericare. Squat pivot transfer done with 3 person assist as 3rd person required for tubing and assist of moving of his UEs to appropriate positions during transfer. HE required max A throughout. Gait Assessment Comments Gait Comments n/a Stair Climbing Assessment Comments Stair Climbing Comments n/a PT-Balance Assessment Sitting Balance and Reactions Static Sitting Balance Ability Poor Dynamic Sitting Balance Ability Poor Standing Balance and Reactions Static Standing Balance Ability Poor Dynamic Standing Balance Ability Poor M5 PT-IP Objective Assessments Start: 06/18/19 11:07 Freq: NEEDED Status: Active Protocol: Document 06/18/19 11:07 [facility] (Rec: 06/18/19 11:33 [facility] [id number]) Orientation Orientation/Cognition Level of Alertness Confusional State Strength Lower Extremity Strength Assessment Bilaterally Impaired M6 PT-IP Treatment Start: 06/18/19 11:07 Freq: NEEDED Status: Active Protocol: Document 06/18/19 11:07 [facility] (Rec: 06/18/19 11:33 [facility] [id number]) Physical Therapy Treatment Education Education Provided Safety M7 PT-IP Assessment and Plan Start: 06/18/19 11:07 Freq: NEEDED Status: Active Protocol: Document 06/18/19 11:07 [facility] (Rec: 06/18/19 11:33 [facility] [id number]) PT Summary Assessment and Plan Potential Rehabilitation Potential Fair Status of Condition at Evaluation Unstable Summary Impairments Strength Balance Coordination Cognition Bed Mobility Transfers Gait Activity Tolerance Assessment Summary Pt presents with RLE cellulitis and heal wound with difficulty following commands . Pt was unable to unload RLE with transfer and at this time it is recommended that nursing use a antoine when transfering the patient between surfaces for safety. He has significant BLE weakness and is unable to safely transfer at this time. Wound care MD has an order to see pt on Wednesday and that will give inc info on plan for WB and if pt will be wearing an unloading shoe. Frequency of Treatment Frequency Of Treatment Once a Day Treatment Plan Physical Therapy Treatment Plan Bed Mobility Training Transfer Training Therapeutic Exercise Balance Retraining Discharge Planning Neuromuscular Re-ed Recommendations To Nursing Amount of Assist Needed Mechanical Lift Discharge Recommendations PT Discharge Recommendations SNF Rehab Other Discharge Recommendations Pt will require full assist upon d/c. If he does not improve from requiring 3 people for transfer and in ability to follow WB, pt will require antoine lift transfers at his facility.
[2019-06-18] MEDS: VANCOMYCIN TROUGH 1 REQUEST MISC (12:14)
[2019-06-18] MEDS: VANCOMYCIN 1,000 MG/200 ML PIGGYBACK 175 MG IV (12:14)
--- NOTE | 2019-06-18 14:50 | PC.NURSE ---
Day shift: Pt sleeping after breakfast and after being moved from bed to chair. Able to wake up and answer some questions but falls back asleep. Pt has slept through lunch. Pt will be Faisal lift for now based on PT/OT. made aware.
--- NOTE | 2019-06-18 15:21 | CM.DPC ---
DCP: continued: worked in followup to yesterdays afternoon family conference with pt, his Berna and Dr. Duff. Berna confimed that she is staying at the [facility] custodial at this point so that she can see her daily. She goes to [facility] each day at 1500 to visit. She and pt do say that he has deteriorated rapidly since he went from [facility] to [facility]. Both expressed a desire to improve his functional abilities as well as his medical issues including his wound care needs. Dr. Duff stated she had ordered OT/PT and a wound consult is expected on Wednesday. Dr. Duff recommended a snf stay before a return to the [facility] setting and a referral was given [facility] yesterday at 1630. Both pt and Berna said they were very much in favor of this plan. Followed up with [facility] today re the status of the referral. She did say they have a bed but she must first discuss with the care team tomorrow in morning meeting as when pt was at [facility] during his prior stay he was up walking the halls and exit seeking. She is aware that he is far from this baseline now and that he has not been doing this at the [facility], at least recently. P: DCP team to follow up with [facility] tomorrow morning and update all accordingly. Dr. Duff is updated re the status of the referral. April does indicate acceptance is very likely but she just cannot speak for the team at this time. P: [facility], pening acceptance, likely tomorrow/ PASRR: needed/not started. Only contact number for Berna is the main line at [facility]: [phone] and she warns that she does not get going until very late in the morning. Keep her updated.
[2019-06-18] MEDS: DOCUSATE 100 MG CAPSULE PO (20:32)
[2019-06-18] MEDS: QUETIAPINE 25 MG TABLET 12.5 MG PO (20:33)
[2019-06-19 03:45] VITALS: BP 110/67; PULSE 73; RESP 16; TEMP 36.9; O2SAT 95
[2019-06-19] MEDS: VANCOMYCIN 1,000 MG/200 ML PIGGYBACK 200 MG IV (04:03)
[2019-06-19 04:15] VITALS: BP 110/67; PULSE 73; RESP 16; TEMP 36.9; O2SAT 95
[2019-06-19 07:00] VITALS: O2SAT 97
[2019-06-19 08:00] VITALS: BP 132/76; PULSE 65; RESP 17; TEMP 37.2; O2SAT 97
[2019-06-19] MEDS: ENOXAPARIN 40 MG/0.4 ML SYRINGE SUBCUT (10:32)
[2019-06-19] MEDS: SODIUM CHLORIDE 0.9% FLUSH 10 ML IV (10:33)
[2019-06-19] MEDS: ASPIRIN EC 81 MG TABLET PO (10:33)
[2019-06-19] MEDS: TAMSULOSIN 0.4 MG CAPSULE PO (10:33)
[2019-06-19] MEDS: FUROSEMIDE 20 MG TABLET 40 MG PO (10:34)
[2019-06-19] MEDS: DOCUSATE 100 MG CAPSULE PO (10:34)
--- NOTE | 2019-06-19 10:36 | CM.DPC ---
Addendum entered by Clarissa Romano R.N. 06/19/19 10:51: Dr. Carvalho from wound clinic, and Fely Garza are seeing patient now. Original Note: DCP Cont: Patient will be discharged today to [facility]. Called Danuta in admissions and confirmed that they can accept today. Updated Dr. Duff. At this time, she is awaiting wound to come in and evaluate. Confirmed with April that they can take patient over to wound clinic if needed, for follow up. At this time, orders are not yet signed, but PASSR is complete. Confirmed with Dr. Duff that patient does have dementia, mid to advanced. He was started on Seroquel here for sleep. Spoke to [place], nurse, as well as P.T. and confirmed that patient is three person transfer, mechanical lift, and that he may need to go via stretcher. Went ahead and set up BLS tile picker time for 2:45. Danuta at [facility] is aware. Awaiting signed med sheets and DC summary to fax over to [facility]. Will include latest P.T. notes to attach with BLS form. P: Patient is to go to [facility] via BLS transport today. Updated white board at main nurses station. Clarissa Romano RN/[employer] Sales Manager
[2019-06-19 12:00] VITALS: BP 104/59; PULSE 90; RESP 15; TEMP 36.8; O2SAT 99
--- NOTE | 2019-06-19 12:21 | OT.IP.EVAL ---
Current Diagnoses Cellulitis of right lower limb (06/16/19) Past Medical History (Last Updated 06/17/19 @ 06:44 by DONALD Garcia) Hypokalemia (Acute) MRSA cellulitis of right foot (Acute) Stage III pressure ulcer of heel (Acute) Cellulitis and abscess of foot (Acute) Incontinence (Chronic) HTN (hypertension) (Chronic) Candidiasis of scrotum (Chronic) History of prostate cancer (Chronic) Surgical History (Last Reviewed 06/17/19 @ 03:30 by Bryan Massey DO) History of prostatectomy (Resolved) History of squamous cell carcinoma excision (Resolved) Occupational Therapy Inpatient Evaluation/Re-Eval M1 PT/OT-IP Prior Functional Status Start: 06/18/19 11:07 Freq: NEEDED Status: Active Protocol: Document 06/19/19 11:48 CGR (Rec: 06/19/19 12:21 CGR [email or web address]) Medical Review Prior Functional Status Medical History Reviewed Yes Communication PASCUA YAQUI Mobility and Gait Pt was 3 person assist recently at [facility] Activities of Daily Living and IADL's Pt unreliable historian but does note he gets help with dressing Social History Household Members other Living Arrangements Assisted Living Number of Floors (Floors) One Floor Number of Stairs To Enter/Railing? none lives at 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 M2 OT-IP Current Condition Start: 06/19/19 11:48 Freq: Status: Active Protocol: Document 06/19/19 11:48 CGR (Rec: 06/19/19 12:21 CGR [email or web address]) Occupational Therapy Current Condition Current Condition Evaluation Date 06/19/19 Treatment Diagnosis Weakness Weight Bearing Status Weight Bearing Status Non-Weight Bearing Allowed Weight Bearing Amount (enter % To the RLE d/t pressure wound or #) (%) M3 OT- IP Subjective and Pain Start: 06/19/19 11:48 Freq: Status: Active Protocol: Document 06/19/19 11:48 CGR (Rec: 06/19/19 12:21 CGR [email or web address]) OT- Subjective Occupational Therapy Visit Type Type Initial Evaluation Visit Start Time 09:55 Visit Stop Time 10:50 Total Visit Minutes 55 Notes Per MD request, SLUMS performed on this date. Occupational Therapy Visit Comments Patient Comments Pt states that he has gotten weaker and that his memory is getting worse. OT Pain Assessment Pain When Pain Assessed At Rest Pain Present Pain Present Denied Pain M4 OT- IP ADL's Start: 06/19/19 11:48 Freq: Status: Active Protocol: Document 06/19/19 11:48 CGR (Rec: 06/19/19 12:21 CGR [email or web address]) OT [id number] General Evaluation Self-Feeding Ability Minimal Assistance Areas Needing Assistance Cutting Food Loading Utensil Opening Containers Devices Self-Feeding Devices Adapted Utensil Adjustable Height Table Comments OT Self-Feeding Comments Adapted utensils made for breakfast meal. Call put into kitchen to have adapted utensils brought for meals. OT ADL-Grooming General Evaluation Grooming Ability Minimal Assistance Areas Needing Assistance Face Washing Comments OT Grooming Comments Sitting up in bed. OT ADL-Oral Care Comments Oral Care Comments Not performed, pt declined infavor of starting breakfast. OT ADL-Dressing Comments OT Dressing Comments Not tested on this date, all in bed activities OT ADL-Toileting Comments OT Toileting Comments Pt currently with hernandez OT ADL-Bathing Comments OT Bathing Comments Not appropriate at this time. M5 OT- IP IADL's Start: 06/19/19 11:48 Freq: Status: Active Protocol: Document 06/19/19 11:48 CGR (Rec: 06/19/19 12:21 CGR [email or web address]) OT-Instrumental Activities of Daily Living Deficits IADL Deficits Identified Deficits Home Safety Awareness Awareness of Need for Assistance at Home Decreased Awareness Ability to Problem Solve Emergency Unable to Problem Solve Situations Medication Management Medication Management Caregiver Administers Money Management Money Management Caregiver Provides Assistance Meal Preparation Meal Preparation Caregiver Provides Assist Mineral Resources Inspector Mineral Resources Inspector Comments NA Driving Driving Comments Pt does not drive M6 OT- IP Functional Cognition Start: 06/19/19 11:48 Freq: Status: Active Protocol: Document 06/19/19 11:48 CGR (Rec: 06/19/19 12:21 CGR [email or web address]) Cognitive Factors Limiting Selfcare Function Cognitive Ability Level of Alertness Alert Confusional State Patient Orientation Name Age Birthday Place Situation Attention Span Ability Capable of Focused Attention Ability to Follow Commands Able to Follow One Step Commands with Increased Time Able to Follow One Step Commands with Repetition Memory Description Immediate Impaired Short Term Impaired Retirement Impaired Working Intact Problem Solving Ability Unable to Identify Errors Needs Assist to Identify Solutions Cognitive Tests SLUMS Pt scored a 12/30. Pt was unable to do any of the clock and requested another chance to try. He worked on it for ~5 minutes without legible writing and was unable to keep ink on the page. 3 Different pens attempted for increased ability and encouraged pt to attempt to use his left hand to write but pt declined at each request. Cognitive Comments Cognitive Assessment Comments Pt was more clear the longer the session went on but still knowledgeable that his memory is getting worse. OT- Vision and Hearing OT- Hearing Assessment OT- Hearing Assessment Hearing Impaired OT- Vision Assessment Visual Acuity WFL No Vision [facility]ides At Hospital Visual Attentiveness WFL Occular Pursuits WFL Visual Convergence WFL Visual Castaneda WFL M8 OT- IP Objective Assessments Start: 06/19/19 11:48 Freq: Status: Active Protocol: Document 06/19/19 11:48 CGR (Rec: 06/19/19 12:21 CGR [email or web address]) OT Gross Range of Motion Upper Extremity Range of Motion Assessment Within Functional Limits ROM Impairments R wrist extension is PROm only OT Strength Upper Extremity Strength Assessment Within Functional Limits Comments Strength Comments Grossly 4 to 4+/5 throghout except R wrist extension 0/5. Pt holds R hand in flexor synergy pattern. OT- Coordination Assessment Upper Extremity Finger to Nose Test Right UE Impaired Finger Tapping Test Right UE Impaired OT-Muscle Tone Assessment Muscle Tone WNL No Muscle Tone Location Right Upper Extremity Type of Tone Flexor Severity of Tone Mild Manifestation of Tone Intention Tremors OT Sensation Assessment Comments Summary Comments Pt states typical sensation to BUE Edema Edema Absent Edema Comments Absent to BUE. Noted to BLE M9 OT- IP Assessment and Plan Start: 06/19/19 11:48 Freq: Status: Active Protocol: Document 06/19/19 11:48 CGR (Rec: 06/19/19 12:21 CGR [email or web address]) OT Summary Assessment and Plan Potential Rehabilitation Potential Fair Analytic Complexity at Evaluation High Summary OT Impairments Range of Motion Balance Coordination Tone Functional Cognition Functional Mobility Self-Feeding Grooming Dressing Toileting Bathing Toilet Transfers Shower Transfers Progress Towards Goals Slow Progress due to Medical Issues Slow Progress due to Cognition Assessment Summary Pt presents with declines to his functional mobility, ADLs and cognition. SLUMS indicates well into the dementia category. Pt states that he is better in the PM and may benefit from another cog assessment performed in the afternoon, although it is unlikely to show improvement that would question the scoring of dementia range. Pt may benefit from therapy skills to increase his mobility and self care. Will plan to see daily. Goals Self-Feeding Goal Independent Grooming Goal Independent Dressing Goal Minimal Assistance Toileting Goal Minimal Assistance Bathing Goal Minimal Assistance Grab Bars Hand Held Shower Sprayer Days to Meet Goals 10 Frequency of Treatment Frequency Of Treatment Once a Day Treatment Plan OT Treatment Plan ADL Training Functional Cognition Training Functional Mobility Therapeutic Exercises Patient/Family Education Discharge Planning Other Treatment Recommendations and Next Feeding with built up handle. Treatment Focus Discharge Recommendations OT Discharge Recommendations SNF Rehab
--- NOTE | 2019-06-19 12:54 | P.DS_ITS ---
History of Present Illness Date Patient Seen: 06/16/19 Chief complaint: Increased confusion Narrative: Written by Mikayla BENNETT: Jimi Montes is a pleasant 78-year-old male resident of [facility] with a history of urinary incontinence, hypertension and a history of prostate cancer was sent over to the emergency department due to increasing lethargy and weakness. Review of prior H and Ps indicate he has mixed incontinence since undergoing a protatectomy and has had a chronically swollen right lower leg and bilateral neuropathy since undergoing chemotherapy. In the emergency department, he was found to be dehydrated and developed a fever shortly after decision was made to admit the patient. His initial presenting vitals were normal, labs unimpressive, and a lactate of the upper limit of normal. He had low normal blood pressure. He was initially treated with ceftriaxone 1 g 4 empiric coverage of an infection of unknown origin. Due to the patient's lethargy the patient was unable to provide a history or a meaningful review of systems, however he does not appear to have dementia. Discharge Providers Date of admission: 06/16/19 21:44 Discharge Date: 06/19/19 Primary care physician: Bill Alarcon MD Consults: 06/16/19 22:24 Consult to Physician Routine Comment: Consulting Provider: Jimi Vila Reason for consultation: Stage 3 ulcer on right heel Has provider been notified: No 06/17/19 17:06 Consult to Occupational Therapy Evaluate & Treat Comment: Also please perform a SLUMS Physician Instructions: Evaluate and treat Consult to Physical Therapy Evaluate & Treat Comment: Physician Instructions: Evaluate and Treat 06/19/19 09:31 Consult to Wound Care Routine Comment: Consulting Provider: [facility] Discharge provider: Kalina Duff DO Summary Discharge Diagnosis: 1. Acute metabolic encephalopathy on moderate vascular dementia with behavioral disturbance, secondary to mild right lower extremity cellulitis and wound infection, present on admission. Resolved. 2. Acute mild right leg cellulitis and heel wound infection, secondary to probable mechanical injury and chronic lymphedema, present on admission. Stable. 3. Acute on chronic generalized weakness and deconditioning, present on admission. Active. 4. MRSA colonization, chronic, present on admission. Stable. 5. Hypertension, chronic, present on admission. Stable. 6. History of prostate cancer. Hospital Course: Jimi Montes is an 78-year-old male with a past medical history significant for hypertension, prostate cancer status post prostatectomy and inguinal lymph node dissection with chronic right lower extremity lymphedema and urinary retention who presented to the ED from [facility] due to increasing lethargy and weakness. 1. Acute metabolic encephalopathy on moderate vascular dementia with behavioral disturbance, secondary to mild right lower extremity cellulitis and wound infection, present on admission. Resolved. -Patient presented with confusion, increasing lethargy, weakness, fever and slow decline at assisted living facility. Patient has probable moderate dementia with short-term memory recall deficit and intermittent hallucinations. -Previous CT and MRI demonstrate chronic age related changes, cerebral volume loss, and microvascular ischemic changes indicative of likely vascular dementia. -Continued physical and occupational therapy evaluation and treatment. SLUMS examination patient scored 12/30 which places him in the moderate to severe dementia category. -Continued seroquel 25 mg at bedtime for sleep maintenance and hallucinations related to dementia. -Treated underlying cause as below with resolution of acute metabolic encephalopathy and mentation return to baseline. 2. Acute mild right leg cellulitis and heel wound infection, secondary to probable mechanical injury and chronic lymphedema, present on admission. Stable. -Right lower extremity had mild cellulitic changes with new wound that appears mechanical on posterior plantar aspect of heel on admission. No signs of sepsis. -Initial WBC 7.3. Procalcitonin < 0.05. -Received 1 L of NS in ED. -Received ceftriaxone 1 g IV x1 in ED. Patient was then started on vancomycin with dosing per pharmacist as he is colonized chronically with MRSA. Patient discharged on doxycycline to finish 7 day course. -Blood cultures x2 have no growth to date. -Continue conservative treatment with elevation as high as tolerated and compression with PRITI wrap from ankle to knee. -Continue diuresis as patient has significant lymphedema and bilateral dependent edema which undoubtedly contribute to and delay wound healing. Continued furosemide 20 mg IV daily and switched to furosemide 40 mg PO daily for better diuretic response as patient has likely developed diuretic resistance (increased from 20 mg PO daily). -Wound care consulted and appreciate their time and care of the patient. The patient will follow-up with wound care tomorrow 06/20 for continued wound care and healing. 3. Acute on chronic generalized weakness and deconditioning, present on admission. Active. -Patients dementia is likely a significant role in overall debility. -Harrison cathteter placed due to significant immobilization requiring antoine lift for transfers. -Continued PT and OT. Patient to attempt a trial of rehab at SNF. If fails would recommend palliative/hospice approach. 4. MRSA colonization, chronic, present on admission. Stable. -Continued contact precautions. -Once acute infectious process has resolved recommend eradication of MRSA with mupirocin applied twice daily to nares x 10 days. 5. Hypertension, chronic, present on admission. Stable. -Continued diuresis as above and discharged on furosemide 40 mg daily. 6. History of prostate cancer. -Presumed to be in remission. -Continued tamsulosin 0.4 mg daily. Exam Vital Signs (past 8 hours): - 06/19/19 07:00 06/19/19 08:00 Temperature 98.9 F Pulse Rate 65 Respiratory Rate 17 Blood Pressure 132/76 Pulse Oximetry 97 97 Oxygen Delivery Method Room Air Oxygen Flow Rate 0 Narrative Exam Narrative: General: Elderly male lying in bed and in no acute distress, appears chronical ly ill, mild to moderate dementia with short-term memory recall deficit but appropriately interactive otherwise. HEENT: Normocephalic, atraumatic. External ears without defect. Pupils equal, round, and reactive to light. Anicteric sclerae, moist conjunctivae, and no lid lag. Neck: Supple with full range of motion. No lymphadenopathy or thyromegaly. Cardiovascular: Regular rate and rhythm without murmurs, rubs, or gallops appreciated Pulmonary: Clear to auscultation bilaterally without crackles, wheezes, or rhonchi. Normal respiratory effort with no use of accessory muscles. Abdomen: Soft, bowel sounds present, non-tender, non-distended. No hepatosplenomegaly or masses appreciated. Genitourinary: Harrison catheter in place. Extremities: No clubbing or cyanosis. Dependent edema bilaterally to mid thighs. Right lower extremity modertate lymphedema with mild cellulitis vastly improved. PRITI wrap in place from ankle to knee. Wound on posterior plantar aspect of heel that appears to be a mechanical injury with hematoma under skin. Skin: Normal temperature, turgor, and texture; no rash, ulcers, or subcutaneous nodules appreciated. Neurological: Cranial nerves grossly intact. Generalized weakness and physical deconditioning. Psychiatric: Alert oriented to person and place only. Appears to be at his baseline mentation with moderate dementia with short-term memory recall deficit and intermittent hallucination. Objective Labs Result Diagrams: 06/18/19 07:45 06/18/19 07:45 Discharge Plan Discharge Plan Patient Disposition: SNF Transfer to: [facility] Under care of provider: Dr. Ray Transportation: Ambulance I certify the postop hospital alf care is medically necessary on a continuing basis for any conditions for which he/ she received care during this hospitalization.: Yes The receiving facility has agreed to accept transfer and provide medical treatment.: Yes Discharge Med Rec/Prescriptions Prescriptions: New quetiapine [Seroquel] 25 mg tablet 12.5 mg PO BID Qty: 30 RF: 0 Continued aspirin 81 mg Tablet,Delayed Release (Dr/Ec) 81 mg PO DAILY RF: 0 cyanocobalamin (vitamin B-12) [Vitamin B-12] 500 mcg Tablet 500 mcg PO DAILY RF: 0 cholecalciferol (vitamin D3) [Vitamin D3] 1,000 unit Tablet 1,000 unit PO DAILY RF: 0 tamsulosin [Flomax] 0.4 mg Capsule 0.4 mg PO DAILY Qty: 30 RF: 0 Discontinued furosemide 20 mg Tablet 20 mg PO DAILY RF: 0 No Action ascorbic acid (vitamin C) 500 mg Capsule 500 mg PO DAILY RF: 0 furosemide 40 mg Tablet 40 mg PO DAILY RF: 0 magnesium hydroxide [Milk of Magnesia] 400 mg/5 mL Suspension 30 ml PO PRN PRN (Reason: Constipation) RF: 0 bisacodyl 10 mg Suppository 10 mg NE PRN PRN (Reason: Constipation) RF: 0 Fleet Enema 19-7 gram/118 mL Enema 1 ea NE PRN PRN (Reason: Constipation) RF: 0 bisacodyl 5 mg Tablet 5 - 10 mg PO PRN PRN (Reason: mild-severe constipation) RF: 0 acetaminophen [Tylenol Arthritis Pain] 650 mg tablet extended release 650 mg PO TID RF: 0 doxycycline hyclate 100 mg tablet 100 mg PO [id number] RF: 0 Follow up/Referrals: Bill Alarcon MD [Primary Care Provider] - Discharge Health Status Brief summary of current health status: Jimi Montes is an 78-year-old male with a past medical history significant for hypertension, prostate cancer status post prostatectomy and inguinal lymph node dissection with chronic right lower extremity lymphedema and urinary retention who presented to the ED from [facility] due to increasing lethargy and weakness and found to have right lower extremity cellulitis and wound infection secondary to suspected traumatic injury and chronic lymphedema. Patient scheduled to follow up with wound Care Clinic regarding wound management. Also continues to have significant generalized weakness and deconditioning with trial of rehabilitation. Multidrug resistant organism: MRSA Date verified: 06/16/19 Precautions: [place] Provider Discharge Instructions Diet: Low-fat, Low-sodium and Low-cholesterol Activity: Activity only with assistance and PT/OT. No weight bearing on right foot Skin/Wound/Dressing Care Other wound treatment: Follow-up at wound clinic at scheduled appointment and follow wound care recs for care of right heel wound [facility] Rehab type: Physical therapy and Occupational therapy Visit Report/Discharge Packet Instructions: How to Prevent Pressure Ulcers Discharge Data Primary Care Provider: Bill Alarcon V Attending Provider: Mikayla García Admit Date/Time: 06/16/19 21:44 Discharges patient from system. Discharge Date/Time: 06/19/19 15:05 Quality VTE Deep Vein Thrombosis/Pulmonary Embolism Present on Admission: No
[2019-06-19] MEDS: MAGNESIUM CHLORIDE 64 MG TABLET 128 MG PO (13:55)
[2019-06-19] MEDS: POTASSIUM CHLORIDE 10 MEQ TAB 40 MEQ PO (13:55)
--- NOTE | 2019-06-19 15:04 | PC.NURSE ---
report called to [facility] nurse. packet sent w/ bls/ems to transf.
== END 2019-06-19 15:05 | DRG 602 ==
LOC: ED 18:06 → AC 21:44
PROVIDERS: Internal Medicine; Admitting Provider Nurse Practitioner Family; Emergency Provider Emergency Medicine; PCP Internal Medicine; Visit Provider Nurse Practitioner Family
DX: L03.115 Cellulitis of right lower limb (principal); G93.41 Metabolic encephalopathy; S91.301A Unspecified open wound, right foot, initial encounter; F01.50 Vascular dementia, unspecified severity, without behavioral disturbance, psychotic disturbance, mood disturbance, and anxiety; I10 Essential (primary) hypertension; Z22.322 Carrier or suspected carrier of Methicillin resistant Staphylococcus aureus
CPT/HCPCS: 36415; 36591; 71045; 80048; 80053; 80202; 81001; 83605; 83735; 83880; 84145; 85025; 87040; 87070; 87075; 87077; 87147; 87186; 87205; 87797; 97110; 97163; 97167; 97530; 97535; 99284; 99285; J1650; J1940; J3480

== ENCOUNTER 2019-06-20 10:56 | Emergency (ER) | payer MEDICARE, SELFPAY ==
[2019-06-16 22:42] VITALS: BMI 24.3
[2019-06-20 11:04] VITALS: BP 91/57; PULSE 77; RESP 16; TEMP 36.2; O2SAT 100
--- NOTE | 2019-06-20 11:04 | DI.RAD.S_ITS ---
PROCEDURE: XR CHEST 1V INDICATIONS: fall, trauma, preop TECHNIQUE: One view of the chest was acquired. COMPARISON: [facility], CR, XR CHEST 1V, 06/16/2019, 18:24. FINDINGS: Surgical changes and devices: None. Lungs and pleura: Lungs are clear. No pleural effusions or pneumothorax. Mediastinum: Mediastinal contours appear normal. Heart size is normal. Bones and chest wall: No suspicious bony lesions. Overlying soft tissues appear unremarkable. IMPRESSION: No acute cardiopulmonary disease process. Dictated by: Massiel Llody MD, PhD on 06/20/2019 at 11:59 Approved by: Massiel Lloyd MD, PhD on 06/20/2019 at 11:59
--- NOTE | 2019-06-20 11:27 | ED.WEAKNESS ---
HPI - Weakness <Thalia HaynesDONALD - Last Filed: 06/20/19 18:35> General Chief complaint: Weakness Stated complaint: Low BP- sent from wound care Time Seen by Provider: 06/20/19 11:02 Source: patient and family Mode of arrival: EMS Limitations: physical limitation History of Present Illness HPI Narrative: 78-year-old male with a history of dementia, was recently admitted and discharged from the hospital for weakness yesterday, presents emergency department today via EMS after he had an episode of low blood pressure and his assisted care facility. Patient also has a pressure ulcer on his right heel is being treated by wound care. Patient is a very poor historian but states he has had 2 loose stools today. He denies chest pain, shortness of breath, or abdominal pain. Other information was difficult to obtain. Related Data Home Medications Medication Instructions Recorded Confirmed aspirin 81 mg PO DAILY 12/15/18 06/20/19 cholecalciferol (vitamin D3) 1,000 unit PO DAILY 12/15/18 06/20/19 [Vitamin D3] cyanocobalamin (vitamin B-12) 500 mcg PO DAILY 12/15/18 06/20/19 [Vitamin B-12] acetaminophen [Tylenol Arthritis 650 mg PO TID 06/20/19 06/20/19 Pain] ascorbic acid (vitamin C) 500 mg PO DAILY 06/20/19 06/20/19 bisacodyl 5 - 10 mg PO PRN PRN 06/20/19 06/20/19 bisacodyl 10 mg KS PRN PRN 06/20/19 06/20/19 doxycycline hyclate 100 mg PO [id number] 06/20/19 06/20/19 furosemide 40 mg PO DAILY 06/20/19 06/20/19 magnesium hydroxide [Milk of 30 ml PO PRN PRN 06/20/19 06/20/19 Magnesia] sodium phosphates [Fleet Enema] 1 ea KS PRN PRN 06/20/19 06/20/19 Previous Rx's Medication Instructions Recorded tamsulosin [Flomax] 0.4 mg PO DAILY #30 cap 01/26/19 quetiapine [Seroquel] 12.5 mg PO BID #30 tab 06/19/19 Allergies Allergy/AdvReac Type Severity Reaction Status Date / Time hydromorphone [From Dilaudid] Allergy Verified 06/16/19 18:02 Review of Systems <DONALD Velez - Last Filed: 06/20/19 18:35> Review of Systems REVIEW OF SYSTEMS: GENERAL: Denies fever or chills. HENT: No head trauma. EYES: No loss of vision. CARDIOVASCULAR: No chest pain or syncope. Patient was sent here for low blood pressure, see HPI. RESPIRATORY: No shortness of breath or cough. GASTROINTESTINAL: No nausea or vomiting. GENITOURINARY: No dysuria. MUSCULOSKELETAL: No pain, weakness, or deformities. INTEGUMENTARY: No rash, lesions, or pruritus. NEURO: No syncope. PSYCH: No behavior or mood changes. PFSH <DONALD Velez - Last Filed: 06/20/19 18:35> Medical History Hypokalemia (Acute) MRSA cellulitis of right foot (Acute) Stage III pressure ulcer of heel (Acute) Cellulitis and abscess of foot (Acute) Incontinence (Chronic) HTN (hypertension) (Chronic) Candidiasis of scrotum (Chronic) History of prostate cancer (Chronic) Surgical History History of prostatectomy (Resolved) History of squamous cell carcinoma excision (Resolved) Family History Other Family history non-contributory Social History household members: spouse and other Smoking Status: Never smoker alcohol intake: current Family History Other Family history non-contributory Social History household members: spouse and other Smoking Status: Never smoker alcohol intake: current Exam <DONALD Velez - Last Filed: 06/20/19 18:35> Initial Vital Signs Initial Vital Signs: Vital Signs Temperature 97.2 F L 06/20/19 11:04 Pulse Rate 77 06/20/19 11:04 Respiratory Rate 16 06/20/19 11:04 Blood Pressure 91/57 L 06/20/19 11:04 Pulse Oximetry 100 06/20/19 11:04 PHYSICAL EXAMINATION: GENERAL: Patient is sleepy, however awakes to voice, cooperative and calm. He is able to identify his is. Vital signs noted (slight hypotension on arrival that responsed well to a 500ml bolus of NS). HENT: Normocephalic, atraumatic. Oral mucosa is pink and moist, no caries or lesions present. Pharynx without erythema. EYES: PERRLA, EOMIs, conjunctiva pink, sclera white, no periorbital swelling. NECK: Full range of motion, nontender. LYMPH: No lymphadenopathy. CHEST: Normal to inspection and without deformities. CARDIOVASCULAR: S1 and S2 sounds normal. Regular rate and rhythm, no murmurs, clicks, or bruits. No pedal edema. RESPIRATORY: Normal respiratory rate, trachea midline, airway patent. No stridor, nasal flaring or accessory muscle use. Lungs are clear in all [place] without wheeze, rhonchi, or crackles. GASTROINTESTINAL: Bowel sounds normoactive. Abdomen is soft and non-tender. No organomegaly. MUSCULOSKELETAL: Patient is nonambulatory, this is his norm as reported by his . EXTREMITIES: CMS intact. Patient is able to move all extremities, however it is more difficult to move his right leg this is also reported as his norm per . SKIN: Warm, dry, soft, appropriate color for ethnicity. There is a wound on his right heel that is bandaged, he was just seen by wound care today so this bandage was left in place and was not removed. There is no surrounding erythema or swelling to the wound. Right leg exhibit 2+ edema as compared to left leg, this is also his norm per due to the lymph node removal. NEURO: Alert and Oriented to person and time, he occasionally is confused about the situation and place. He is noted to be sleeping before the interview, however he is easily awakened by voice. Answers questions immediately, some answers are appropriate for the question, some answers to not pertain to the question asked. It appears that he exhibit some dementia, also states that this is pretty much as norm. PSYCH: Flat affect, appropriate mood. <Bryan Massey, - Last Filed: 06/20/19 19:40> Initial Vital Signs Initial Vital Signs: Vital Signs Temperature 97.2 F L 06/20/19 11:04 Pulse Rate 77 06/20/19 11:04 Respiratory Rate 16 06/20/19 11:04 Blood Pressure 91/57 L 06/20/19 11:04 Pulse Oximetry 100 06/20/19 11:04 Course <Thalia HaynesDONALD - Last Filed: 06/20/19 18:35> Course Narrative: Patient's blood pressure increased to 111/64 with an administration of 500 mL of normal saline. His mentation or other vital signs remained stable throughout the emergency department stay and did not change. Orders Ordered: ED Orders 06/20/19 11:04 XR chest 1V Stat 06/20/19 11:15 Complete Blood Count AUTO DIFF Stat Comprehensive Metabolic Panel Stat Urinalysis and Microscopic Stat Discontinued Medications Sodium Chloride (Normal Saline 0.9%) 500 mls @ 1,000 mls/hr IV BOLUS ONE Stop: 06/20/19 11:57 Last Infusion: 06/20/19 12:10 Dose: 0 mls/hr Admin: 06/20/19 11:36 Dose: 1,000 mls/hr Consultations Consultation #1: Dr. Alarcon was consulted about patient's condition as per records he has been admitted multiple times for this. Discussed that has been challenge to reduce leg swelling and balancing dehydration from administration of furosemide. Due to negative urinalysis and unchanged blood work from his hospital stay, we feel it is appropriate that patient can be discharged home and follow up with Dr. Alarcon as scheduled tomorrow. Strict return precautions were given to patient. Time: 14:14 Consultation #2: Patient was staffed with Dr. Massey, plan of care discussed. Time: 14:00 Vital Signs - 8 hr 06/20/19 12:00 06/20/19 13:00 06/20/19 14:00 Pulse Rate 68 67 75 Respiratory Rate 14 15 14 Blood Pressure [Left Arm] 101/62 118/63 111/64 Pulse Oximetry 100 95 <Bryan Massey DO - Last Filed: 06/20/19 19:40> Orders Ordered: ED Orders 06/20/19 11:04 XR chest 1V Stat 06/20/19 11:15 Complete Blood Count AUTO DIFF Stat Comprehensive Metabolic Panel Stat Urinalysis and Microscopic Stat Discontinued Medications Sodium Chloride (Normal Saline 0.9%) 500 mls @ 1,000 mls/hr IV BOLUS ONE Stop: 06/20/19 11:57 Last Infusion: 06/20/19 12:10 Dose: 0 mls/hr Admin: 06/20/19 11:36 Dose: 1,000 mls/hr Vital Signs - 8 hr 06/20/19 12:00 06/20/19 13:00 06/20/19 14:00 Pulse Rate 68 67 75 Respiratory Rate 14 15 14 Blood Pressure [Left Arm] 101/62 118/63 111/64 Pulse Oximetry 100 95 MDM - Weakness <DONALD Velez - Last Filed: 06/20/19 18:35> Medical Records Attestation: I reviewed the patient's medical records. Lab Data Attestation: I reviewed the patient's lab results. Result diagrams: 06/20/19 11:15 06/20/19 11:15 Lab Results 06/20/19 06/20/19 06/20/19 Range/Units 11:15 11:15 11:15 WBC 6.3 (4.5-11.0) X10^3/uL RBC 4.41 L (4.5-5.9) X10^6/uL Hgb 13.2 L (13.5-17.5) g/dL Hct 39.9 L (41-53) % MCV 90.5 (80-100) fL MCH 30.0 (26-34) PG MCHC 33.1 (30-36) % RDW 14.8 (11.6-14.8) % Plt Count 138 L (150-400) X10^3/uL Neut % (Auto) 69.4 (50-75) % Lymph % (Auto) 13.7 L (25-40) % [place] % (Auto) 14.8 H (3-14) % Eos % (Auto) 1.4 L (2-4) % Baso % (Auto) 0.7 (0-2) % Neut # (Auto) 4300 (0926-8707) /uL Lymph # (Auto) 900 L (6913-7687) /uL [place] # (Auto) 900 (0-900) /uL Eos # (Auto) 100 (0-450) /uL Baso # (Auto) 0 (0-100) /uL Sodium 139 (137-145) mmol/L Potassium 3.5 (3.4-5.1) mmol/L Chloride 104 (98-107) mmol/L Carbon Dioxide 27 (22-32) mmol/L BUN 17 (9-20) mg/dL Creatinine 0.70 (0.66-1.25) mg/dL Estimated GFR > 60.0 (>60) mL/min BUN/Creatinine Ratio 24.3 H (6-22) Glucose 100 (80-110) mg/dL Calcium 8.5 (8.4-10.2) mg/dL Total Bilirubin 0.8 (0.2-1.3) mg/dL AST 46 (17-59) IU/L ALT 38 (21-72) IU/L Alkaline Phosphatase 99 (38-126) U/L Total Protein 6.6 (6.3-8.2) g/dL Albumin 3.5 (3.5-5.0) g/dL Globulin 3.1 (1.7-4.1) g/dL Albumin/Globulin Ratio 1.1 (1.0-2.8) Urine Color Yellow Urine Appearance Clear Urine pH 7.0 (4.5-8.0) Ur Specific [place] 1.015 (1.000-1.035) Urine Protein Negative (Negative) Urine Glucose (UA) Negative (Negative) g/dL Urine Ketones Negative (NEGATIVE) Urine Occult Blood 1+ H (Negative) Urine Nitrate Negative (Negative) Urine Bilirubin Negative (NEGATIVE) Urine Urobilinogen 0.2 (0.2) E.U./dL Ur Leukocyte Esterase Negative (NEGATIVE) Urine RBC 0-1/hpf (0-5/HPF) Urine WBC None seen (0-5/HPF) Amorphous Sediment 1+ Urine Bacteria None seen (None) Ur Culture Indicated? Cult not indicated Imaging Data Chest x-ray: Radiologist's impression: [facility] [address] [place] [id number] XRay Report Signed Patient: Jimi Montes CMR#: [id number] : 8Acct:[id number] Age/Sex: 78 / MDate of Service: 06/20/19 Loc: ED Accession Number: [id number] Procedure: XR chest 1V Ordering Provider: Bryan Massey D.O. PROCEDURE: XR CHEST 1V INDICATIONS: fall, trauma, preop TECHNIQUE: One view of the chest was acquired. COMPARISON: [facility], CR, XR CHEST 1V, 06/16/2019, 18:24. FINDINGS: Surgical changes and devices: None. Lungs and pleura: Lungs are clear. No pleural effusions or pneumothorax. Mediastinum: Mediastinal contours appear normal. Heart size is normal. Bones and chest wall: No suspicious bony lesions. Overlying soft tissues appear unremarkable. IMPRESSION: No acute cardiopulmonary disease process. Dictated by: Massiel Lloyd MD, PhD on 06/20/2019 at 11:59 Approved by: Massiel Lloyd MD, PhD on 06/20/2019 at 11:59 MDM Narrative Medical decision making narrative: 78-year-old male presents emergency department from the wound clinic due to low blood pressure. I suspect this was caused from over diuresis with resulting dehydration with furosemide as his right leg edema is being managed in this manner, BP was responsive to fluids, and his BUN/creatinine ratio was increased. Less likely infection due normal white blood cell count, negative urinalysis, negative chest x-ray, and chemistry labs that were unchanged from yesterday. Additionally, he has no systemic manifestations of infection such as cough, fever, abdominal pain, or shortness of breath. It is unclear the cause of his increased sleepiness, however this may be related to his possible dementia. After discussion with Dr. Alarcon it was decided that patient is acceptable do be treated as outpatient via his follow-up appointment tomorrow as he does not appear acutely ill in there is no indication for admission. <Bryan Massey DO - Last Filed: 06/20/19 19:40> Lab Data Lab Results 06/20/19 06/20/19 06/20/19 Range/Units 11:15 11:15 11:15 WBC 6.3 (4.5-11.0) X10^3/uL RBC 4.41 L (4.5-5.9) X10^6/uL Hgb 13.2 L (13.5-17.5) g/dL Hct 39.9 L (41-53) % MCV 90.5 (80-100) fL MCH 30.0 (26-34) PG MCHC 33.1 (30-36) % RDW 14.8 (11.6-14.8) % Plt Count 138 L (150-400) X10^3/uL Neut % (Auto) 69.4 (50-75) % Lymph % (Auto) 13.7 L (25-40) % [place] % (Auto) 14.8 H (3-14) % Eos % (Auto) 1.4 L (2-4) % Baso % (Auto) 0.7 (0-2) % Neut # (Auto) 4300 (5338-4862) /uL Lymph # (Auto) 900 L (2533-3099) /uL [place] # (Auto) 900 (0-900) /uL Eos # (Auto) 100 (0-450) /uL Baso # (Auto) 0 (0-100) /uL Sodium 139 (137-145) mmol/L Potassium 3.5 (3.4-5.1) mmol/L Chloride 104 (98-107) mmol/L Carbon Dioxide 27 (22-32) mmol/L BUN 17 (9-20) mg/dL Creatinine 0.70 (0.66-1.25) mg/dL Estimated GFR > 60.0 (>60) mL/min BUN/Creatinine Ratio 24.3 H (6-22) Glucose 100 (80-110) mg/dL Calcium 8.5 (8.4-10.2) mg/dL Total Bilirubin 0.8 (0.2-1.3) mg/dL AST 46 (17-59) IU/L ALT 38 (21-72) IU/L Alkaline Phosphatase 99 (38-126) U/L Total Protein 6.6 (6.3-8.2) g/dL Albumin 3.5 (3.5-5.0) g/dL Globulin 3.1 (1.7-4.1) g/dL Albumin/Globulin Ratio 1.1 (1.0-2.8) Urine Color Yellow Urine Appearance Clear Urine pH 7.0 (4.5-8.0) Ur Specific [place] 1.015 (1.000-1.035) Urine Protein Negative (Negative) Urine Glucose (UA) Negative (Negative) g/dL Urine Ketones Negative (NEGATIVE) Urine Occult Blood 1+ H (Negative) Urine Nitrate Negative (Negative) Urine Bilirubin Negative (NEGATIVE) Urine Urobilinogen 0.2 (0.2) E.U./dL Ur Leukocyte Esterase Negative (NEGATIVE) Urine RBC 0-1/hpf (0-5/HPF) Urine WBC None seen (0-5/HPF) Amorphous Sediment 1+ Urine Bacteria None seen (None) Ur Culture Indicated? Cult not indicated Discharge Plan Departure Patient Disposition: Home Clinical Impression: Acute dehydration Discharge Date/Time: 06/20/19 15:00 Interventions: ED Discharge Assessment Last Done: 06/20/19 15:00 Instructions: DI for Dehydration -- Adult Activity Restrictions/Additional Instructions: Thank you for entrusting me with your care today. As discussed, it appears her symptoms may be caused by dehydration. I spoke with Dr. Alarcon, please follow up with him tomorrow as scheduled. Return to the emergency department if he develops chest pain, syncope, high fevers, shortness of breath, or abdominal pain. Prescriptions: No Action aspirin 81 mg Tablet,Delayed Release (Dr/Ec) 81 mg PO DAILY RF: 0 cyanocobalamin (vitamin B-12) [Vitamin B-12] 500 mcg Tablet 500 mcg PO DAILY RF: 0 cholecalciferol (vitamin D3) [Vitamin D3] 1,000 unit Tablet 1,000 unit PO DAILY RF: 0 tamsulosin [Flomax] 0.4 mg Capsule 0.4 mg PO DAILY Qty: 30 RF: 0 ascorbic acid (vitamin C) 500 mg Capsule 500 mg PO DAILY RF: 0 furosemide 40 mg Tablet 40 mg PO DAILY RF: 0 magnesium hydroxide [Milk of Magnesia] 400 mg/5 mL Suspension 30 ml PO PRN PRN (Reason: Constipation) RF: 0 bisacodyl 10 mg Suppository 10 mg KS PRN PRN (Reason: Constipation) RF: 0 Fleet Enema 19-7 gram/118 mL Enema 1 ea KS PRN PRN (Reason: Constipation) RF: 0 bisacodyl 5 mg Tablet 5 - 10 mg PO PRN PRN (Reason: mild-severe constipation) RF: 0 acetaminophen [Tylenol Arthritis Pain] 650 mg tablet extended release 650 mg PO TID RF: 0 doxycycline hyclate 100 mg tablet 100 mg PO [id number] RF: 0 quetiapine [Seroquel] 25 mg tablet 12.5 mg PO BID Qty: 30 RF: 0 Referrals: Bill Alarcon MD [Primary Care Provider] - <Bryan Massey DO - Last Filed: 06/20/19 19:40> Cosign ED Attending Cosignature Attestation: I was immediately available in the department for consultation. Documentation has been reviewed. I agree with assessment and plan.
--- NOTE | 2019-06-20 11:30 | ED_ITS ---
HPI - Weakness <Thalia HaynesDONALD - Last Filed: 06/20/19 18:35> General Chief complaint: Weakness Stated complaint: Low BP- sent from wound care Time Seen by Provider: 06/20/19 11:02 Source: patient and family Mode of arrival: EMS Limitations: physical limitation History of Present Illness HPI Narrative: 78-year-old male with a history of dementia, was recently admitted and discharged from the hospital for weakness yesterday, presents emergency department today via EMS after he had an episode of low blood pressure and his assisted care facility. Patient also has a pressure ulcer on his right heel is being treated by wound care. Patient is a very poor historian but states he has had 2 loose stools today. He denies chest pain, shortness of breath, or abdominal pain. Other information was difficult to obtain. Related Data Home Medications Medication Instructions Recorded Confirmed aspirin 81 mg PO DAILY 12/15/18 06/20/19 cholecalciferol (vitamin D3) 1,000 unit PO DAILY 12/15/18 06/20/19 [Vitamin D3] cyanocobalamin (vitamin B-12) 500 mcg PO DAILY 12/15/18 06/20/19 [Vitamin B-12] acetaminophen [Tylenol Arthritis 650 mg PO TID 06/20/19 06/20/19 Pain] ascorbic acid (vitamin C) 500 mg PO DAILY 06/20/19 06/20/19 bisacodyl 5 - 10 mg PO PRN PRN 06/20/19 06/20/19 bisacodyl 10 mg OR PRN PRN 06/20/19 06/20/19 doxycycline hyclate 100 mg PO [id number] 06/20/19 06/20/19 furosemide 40 mg PO DAILY 06/20/19 06/20/19 magnesium hydroxide [Milk of 30 ml PO PRN PRN 06/20/19 06/20/19 Magnesia] sodium phosphates [Fleet Enema] 1 ea OR PRN PRN 06/20/19 06/20/19 Previous Rx's Medication Instructions Recorded tamsulosin [Flomax] 0.4 mg PO DAILY #30 cap 01/26/19 quetiapine [Seroquel] 12.5 mg PO BID #30 tab 06/19/19 Allergies Allergy/AdvReac Type Severity Reaction Status Date / Time hydromorphone [From Dilaudid] Allergy Verified 06/16/19 18:02 Review of Systems <DONALD Velez - Last Filed: 06/20/19 18:35> Review of Systems REVIEW OF SYSTEMS: GENERAL: Denies fever or chills. HENT: No head trauma. EYES: No loss of vision. CARDIOVASCULAR: No chest pain or syncope. Patient was sent here for low blood pressure, see HPI. RESPIRATORY: No shortness of breath or cough. GASTROINTESTINAL: No nausea or vomiting. GENITOURINARY: No dysuria. MUSCULOSKELETAL: No pain, weakness, or deformities. INTEGUMENTARY: No rash, lesions, or pruritus. NEURO: No syncope. PSYCH: No behavior or mood changes. PFSH <DONALD Velez - Last Filed: 06/20/19 18:35> Medical History Hypokalemia (Acute) MRSA cellulitis of right foot (Acute) Stage III pressure ulcer of heel (Acute) Cellulitis and abscess of foot (Acute) Incontinence (Chronic) HTN (hypertension) (Chronic) Candidiasis of scrotum (Chronic) History of prostate cancer (Chronic) Surgical History History of prostatectomy (Resolved) History of squamous cell carcinoma excision (Resolved) Family History Other Family history non-contributory Social History household members: spouse and other Smoking Status: Never smoker alcohol intake: current Family History Other Family history non-contributory Social History household members: spouse and other Smoking Status: Never smoker alcohol intake: current Exam <DONALD Velez - Last Filed: 06/20/19 18:35> Initial Vital Signs Initial Vital Signs: Vital Signs Temperature 97.2 F L 06/20/19 11:04 Pulse Rate 77 06/20/19 11:04 Respiratory Rate 16 06/20/19 11:04 Blood Pressure 91/57 L 06/20/19 11:04 Pulse Oximetry 100 06/20/19 11:04 PHYSICAL EXAMINATION: GENERAL: Patient is sleepy, however awakes to voice, cooperative and calm. He is able to identify his is. Vital signs noted (slight hypotension on arrival that responsed well to a 500ml bolus of NS). HENT: Normocephalic, atraumatic. Oral mucosa is pink and moist, no caries or lesions present. Pharynx without erythema. EYES: PERRLA, EOMIs, conjunctiva pink, sclera white, no periorbital swelling. NECK: Full range of motion, nontender. LYMPH: No lymphadenopathy. CHEST: Normal to inspection and without deformities. CARDIOVASCULAR: S1 and S2 sounds normal. Regular rate and rhythm, no murmurs, clicks, or bruits. No pedal edema. RESPIRATORY: Normal respiratory rate, trachea midline, airway patent. No stridor, nasal flaring or accessory muscle use. Lungs are clear in all stanley without wheeze, rhonchi, or crackles. GASTROINTESTINAL: Bowel sounds normoactive. Abdomen is soft and non-tender. No organomegaly. MUSCULOSKELETAL: Patient is nonambulatory, this is his norm as reported by his . EXTREMITIES: CMS intact. Patient is able to move all extremities, however it is more difficult to move his right leg this is also reported as his norm per . SKIN: Warm, dry, soft, appropriate color for ethnicity. There is a wound on his right heel that is bandaged, he was just seen by wound care today so this bandage was left in place and was not removed. There is no surrounding erythema or swelling to the wound. Right leg exhibit 2+ edema as compared to left leg, this is also his norm per due to the lymph node removal. NEURO: Alert and Oriented to person and time, he occasionally is confused about the situation and place. He is noted to be sleeping before the interview, however he is easily awakened by voice. Answers questions immediately, some answers are appropriate for the question, some answers to not pertain to the question asked. It appears that he exhibit some dementia, also states that this is pretty much as norm. PSYCH: Flat affect, appropriate mood. <Bryan Massey, - Last Filed: 06/20/19 19:40> Initial Vital Signs Initial Vital Signs: Vital Signs Temperature 97.2 F L 06/20/19 11:04 Pulse Rate 77 06/20/19 11:04 Respiratory Rate 16 06/20/19 11:04 Blood Pressure 91/57 L 06/20/19 11:04 Pulse Oximetry 100 06/20/19 11:04 Course <Thalia HaynesDONALD - Last Filed: 06/20/19 18:35> Course Narrative: Patient's blood pressure increased to 111/64 with an administration of 500 mL of normal saline. His mentation or other vital signs remained stable throughout the emergency department stay and did not change. Orders Ordered: ED Orders 06/20/19 11:04 XR chest 1V Stat 06/20/19 11:15 Complete Blood Count AUTO DIFF Stat Comprehensive Metabolic Panel Stat Urinalysis and Microscopic Stat Discontinued Medications Sodium Chloride (Normal Saline 0.9%) 500 mls @ 1,000 mls/hr IV BOLUS ONE Stop: 06/20/19 11:57 Last Infusion: 06/20/19 12:10 Dose: 0 mls/hr Admin: 06/20/19 11:36 Dose: 1,000 mls/hr Consultations Consultation #1: Dr. Alarcon was consulted about patient's condition as per records he has been admitted multiple times for this. Discussed that has been challenge to reduce leg swelling and balancing dehydration from administration of furosemide. Due to negative urinalysis and unchanged blood work from his hospital stay, we feel it is appropriate that patient can be discharged home and follow up with Dr. Alarcon as scheduled tomorrow. Strict return precautions were given to patient. Time: 14:14 Consultation #2: Patient was staffed with Dr. Massey, plan of care discussed. Time: 14:00 Vital Signs - 8 hr 06/20/19 12:00 06/20/19 13:00 06/20/19 14:00 Pulse Rate 68 67 75 Respiratory Rate 14 15 14 Blood Pressure [Left Arm] 101/62 118/63 111/64 Pulse Oximetry 100 95 <Bryan Massey DO - Last Filed: 06/20/19 19:40> Orders Ordered: ED Orders 06/20/19 11:04 XR chest 1V Stat 06/20/19 11:15 Complete Blood Count AUTO DIFF Stat Comprehensive Metabolic Panel Stat Urinalysis and Microscopic Stat Discontinued Medications Sodium Chloride (Normal Saline 0.9%) 500 mls @ 1,000 mls/hr IV BOLUS ONE Stop: 06/20/19 11:57 Last Infusion: 06/20/19 12:10 Dose: 0 mls/hr Admin: 06/20/19 11:36 Dose: 1,000 mls/hr Vital Signs - 8 hr 06/20/19 12:00 06/20/19 13:00 06/20/19 14:00 Pulse Rate 68 67 75 Respiratory Rate 14 15 14 Blood Pressure [Left Arm] 101/62 118/63 111/64 Pulse Oximetry 100 95 MDM - Weakness <DONALD Velez - Last Filed: 06/20/19 18:35> Medical Records Attestation: I reviewed the patient's medical records. Lab Data Attestation: I reviewed the patient's lab results. Result diagrams: 06/20/19 11:15 06/20/19 11:15 Lab Results 06/20/19 06/20/19 06/20/19 Range/Units 11:15 11:15 11:15 WBC 6.3 (4.5-11.0) X10^3/uL RBC 4.41 L (4.5-5.9) X10^6/uL Hgb 13.2 L (13.5-17.5) g/dL Hct 39.9 L (41-53) % MCV 90.5 (80-100) fL MCH 30.0 (26-34) PG MCHC 33.1 (30-36) % RDW 14.8 (11.6-14.8) % Plt Count 138 L (150-400) X10^3/uL Neut % (Auto) 69.4 (50-75) % Lymph % (Auto) 13.7 L (25-40) % Lane % (Auto) 14.8 H (3-14) % Eos % (Auto) 1.4 L (2-4) % Baso % (Auto) 0.7 (0-2) % Neut # (Auto) 4300 (9270-7212) /uL Lymph # (Auto) 900 L (4259-2122) /uL Lane # (Auto) 900 (0-900) /uL Eos # (Auto) 100 (0-450) /uL Baso # (Auto) 0 (0-100) /uL Sodium 139 (137-145) mmol/L Potassium 3.5 (3.4-5.1) mmol/L Chloride 104 (98-107) mmol/L Carbon Dioxide 27 (22-32) mmol/L BUN 17 (9-20) mg/dL Creatinine 0.70 (0.66-1.25) mg/dL Estimated GFR > 60.0 (>60) mL/min BUN/Creatinine Ratio 24.3 H (6-22) Glucose 100 (80-110) mg/dL Calcium 8.5 (8.4-10.2) mg/dL Total Bilirubin 0.8 (0.2-1.3) mg/dL AST 46 (17-59) IU/L ALT 38 (21-72) IU/L Alkaline Phosphatase 99 (38-126) U/L Total Protein 6.6 (6.3-8.2) g/dL Albumin 3.5 (3.5-5.0) g/dL Globulin 3.1 (1.7-4.1) g/dL Albumin/Globulin Ratio 1.1 (1.0-2.8) Urine Color Yellow Urine Appearance Clear Urine pH 7.0 (4.5-8.0) Ur Specific [place] 1.015 (1.000-1.035) Urine Protein Negative (Negative) Urine Glucose (UA) Negative (Negative) g/dL Urine Ketones Negative (NEGATIVE) Urine Occult Blood 1+ H (Negative) Urine Nitrate Negative (Negative) Urine Bilirubin Negative (NEGATIVE) Urine Urobilinogen 0.2 (0.2) E.U./dL Ur Leukocyte Esterase Negative (NEGATIVE) Urine RBC 0-1/hpf (0-5/HPF) Urine WBC None seen (0-5/HPF) Amorphous Sediment 1+ Urine Bacteria None seen (None) Ur Culture Indicated? Cult not indicated Imaging Data Chest x-ray: Radiologist's impression: [facility] [address] [place] [id number] XRay Report Signed Patient: Jimi Montes CMR#: [id number] : 8Acct:[id number] Age/Sex: 78 / MDate of Service: 06/20/19 Loc: ED Accession Number: [id number] Procedure: XR chest 1V Ordering Provider: Bryan Massey D.O. PROCEDURE: XR CHEST 1V INDICATIONS: fall, trauma, preop TECHNIQUE: One view of the chest was acquired. COMPARISON: [facility], CR, XR CHEST 1V, 06/16/2019, 18:24. FINDINGS: Surgical changes and devices: None. Lungs and pleura: Lungs are clear. No pleural effusions or pneumothorax. Mediastinum: Mediastinal contours appear normal. Heart size is normal. Bones and chest wall: No suspicious bony lesions. Overlying soft tissues appear unremarkable. IMPRESSION: No acute cardiopulmonary disease process. Dictated by: Massiel Lloyd MD, PhD on 06/20/2019 at 11:59 Approved by: Massiel Lloyd MD, PhD on 06/20/2019 at 11:59 MDM Narrative Medical decision making narrative: 78-year-old male presents emergency department from the wound clinic due to low blood pressure. I suspect this was caused from over diuresis with resulting dehydration with furosemide as his right leg edema is being managed in this manner, BP was responsive to fluids, and his BUN/creatinine ratio was increased. Less likely infection due normal white blood cell count, negative urinalysis, negative chest x-ray, and chemistry labs that were unchanged from yesterday. Additionally, he has no systemic manifestations of infection such as cough, fever, abdominal pain, or shortness of breath. It is unclear the cause of his increased sleepiness, however this m ay be related to his possible dementia. After discussion with Dr. Alarcon it was decided that patient is acceptable do be treated as outpatient via his follow-up appointment tomorrow as he does not appear acutely ill in there is no indication for admission. <Bryan Massey DO - Last Filed: 06/20/19 19:40> Lab Data Lab Results 06/20/19 06/20/19 06/20/19 Range/Units 11:15 11:15 11:15 WBC 6.3 (4.5-11.0) X10^3/uL RBC 4.41 L (4.5-5.9) X10^6/uL Hgb 13.2 L (13.5-17.5) g/dL Hct 39.9 L (41-53) % MCV 90.5 (80-100) fL MCH 30.0 (26-34) PG MCHC 33.1 (30-36) % RDW 14.8 (11.6-14.8) % Plt Count 138 L (150-400) X10^3/uL Neut % (Auto) 69.4 (50-75) % Lymph % (Auto) 13.7 L (25-40) % Lane % (Auto) 14.8 H (3-14) % Eos % (Auto) 1.4 L (2-4) % Baso % (Auto) 0.7 (0-2) % Neut # (Auto) 4300 (0882-2425) /uL Lymph # (Auto) 900 L (9526-0460) /uL Lane # (Auto) 900 (0-900) /uL Eos # (Auto) 100 (0-450) /uL Baso # (Auto) 0 (0-100) /uL Sodium 139 (137-145) mmol/L Potassium 3.5 (3.4-5.1) mmol/L Chloride 104 (98-107) mmol/L Carbon Dioxide 27 (22-32) mmol/L BUN 17 (9-20) mg/dL Creatinine 0.70 (0.66-1.25) mg/dL Estimated GFR > 60.0 (>60) mL/min BUN/Creatinine Ratio 24.3 H (6-22) Glucose 100 (80-110) mg/dL Calcium 8.5 (8.4-10.2) mg/dL Total Bilirubin 0.8 (0.2-1.3) mg/dL AST 46 (17-59) IU/L ALT 38 (21-72) IU/L Alkaline Phosphatase 99 (38-126) U/L Total Protein 6.6 (6.3-8.2) g/dL Albumin 3.5 (3.5-5.0) g/dL Globulin 3.1 (1.7-4.1) g/dL Albumin/Globulin Ratio 1.1 (1.0-2.8) Urine Color Yellow Urine Appearance Clear Urine pH 7.0 (4.5-8.0) Ur Specific [place] 1.015 (1.000-1.035) Urine Protein Negative (Negative) Urine Glucose (UA) Negative (Negative) g/dL Urine Ketones Negative (NEGATIVE) Urine Occult Blood 1+ H (Negative) Urine Nitrate Negative (Negative) Urine Bilirubin Negative (NEGATIVE) Urine Urobilinogen 0.2 (0.2) E.U./dL Ur Leukocyte Esterase Negative (NEGATIVE) Urine RBC 0-1/hpf (0-5/HPF) Urine WBC None seen (0-5/HPF) Amorphous Sediment 1+ Urine Bacteria None seen (None) Ur Culture Indicated? Cult not indicated Discharge Plan Departure Patient Disposition: Home Clinical Impression: Acute dehydration Discharge Date/Time: 06/20/19 15:00 Interventions: ED Discharge Assessment Last Done: 06/20/19 15:00 Instructions: DI for Dehydration -- Adult Activity Restrictions/Additional Instructions: Thank you for entrusting me with your care today. As discussed, it appears her symptoms may be caused by dehydration. I spoke with Dr. Alarcon, please follow up with him tomorrow as scheduled. Return to the emergency department if he develops chest pain, syncope, high fevers, shortness of breath, or abdominal pain. Prescriptions: No Action aspirin 81 mg Tablet,Delayed Release (Dr/Ec) 81 mg PO DAILY RF: 0 cyanocobalamin (vitamin B-12) [Vitamin B-12] 500 mcg Tablet 500 mcg PO DAILY RF: 0 cholecalciferol (vitamin D3) [Vitamin D3] 1,000 unit Tablet 1,000 unit PO DAILY RF: 0 tamsulosin [Flomax] 0.4 mg Capsule 0.4 mg PO DAILY Qty: 30 RF: 0 ascorbic acid (vitamin C) 500 mg Capsule 500 mg PO DAILY RF: 0 furosemide 40 mg Tablet 40 mg PO DAILY RF: 0 magnesium hydroxide [Milk of Magnesia] 400 mg/5 mL Suspension 30 ml PO PRN PRN (Reason: Constipation) RF: 0 bisacodyl 10 mg Suppository 10 mg OR PRN PRN (Reason: Constipation) RF: 0 Fleet Enema 19-7 gram/118 mL Enema 1 ea OR PRN PRN (Reason: Constipation) RF: 0 bisacodyl 5 mg Tablet 5 - 10 mg PO PRN PRN (Reason: mild-severe constipation) RF: 0 acetaminophen [Tylenol Arthritis Pain] 650 mg tablet extended release 650 mg PO TID RF: 0 doxycycline hyclate 100 mg tablet 100 mg PO [id number] RF: 0 quetiapine [Seroquel] 25 mg tablet 12.5 mg PO BID Qty: 30 RF: 0 Referrals: Bill lAarcon MD [Primary Care Provider] - <Bryan Massey DO - Last Filed: 06/20/19 19:40> Cosign ED Attending Cosignature Attestation: I was immediately available in the department for consultation. Documentation has been reviewed. I agree with assessment and plan.
[2019-06-20 11:35] LABS: Bacteria Urine None Seen; WBC Urine None Seen (0-5/HPF)
[2019-06-20 11:36] LABS: Add Manual Diff / Slide Review NO; Basophils Absolute Auto 0 /uL (0-100); Basophils Percent Auto 0.7 % (0-2); Eosinophils Absolute Auto 100 /uL (0-450); Eosinophils Percent Auto 1.4 % (2-4); Hematocrit 39.9 % (41-53); Hemoglobin 13.2 g/dL (13.5-17.5); Lymphocytes Absolute Auto 900 /uL (1100-4500); Lymphocytes Percent Auto 13.7 % (25-40); Mean Corpuscular HGB Conc 33.1 % (30-36); Mean Corpuscular Volume 90.5 fL (80-100); Monocytes Absolute Auto 900 /uL (0-900); Monocytes Percent Auto 14.8 % (3-14); Neutrophils Absolute Auto 4300 /uL (1500-7000); Neutrophils Percent Auto 69.4 % (50-75); Platelet Count 138 X10^3/uL (150-400); Red Blood Cell Count 4.41 X10^6/uL (4.5-5.9); Red Cell Distribution Width 14.8 % (11.6-14.8); White Blood Cell Count 6.3 X10^3/uL (4.5-11.0)
[2019-06-20] MEDS: SODIUM CHLORIDE 0.9% 500 ML 1000 ML IV (11:36)
[2019-06-20 11:38] LABS: Appearance Urine UA CLEAR; Bilirubin Urine UA NEGATIVE (NEGATIVE); Color Urine UA YELLOW; Glucose Urine UA NEGATIVE (Negative); Ketones Urine UA NEGATIVE (NEGATIVE); Leukocyte Esterase Urine UA NEGATIVE (NEGATIVE); Nitrite Urine UA NEGATIVE (Negative); Occult Blood Urine UA 1+ (Negative); Protein Urine UA NEGATIVE (Negative); Specific Gravity Urine UA 1.015 (1.000-1.035); Urobilinogen Urine UA 0.2 E.U./dL (0.2)
[2019-06-20 11:48] LABS: Alanine Aminotransferase 38 IU/L (21-72); Albumin 3.5 g/dL (3.5-5.0); Albumin Globulin Ratio 1.1 (1.0-2.8); Alkaline Phosphatase 99 U/L (38-126); Amorphous Sediment Urine 1+; Aspartate Aminotransferase 46 IU/L (17-59); BUN Creatinine Ratio 24.3 (6-22); Bilirubin Total 0.8 mg/dL (0.2-1.3); Blood Urea Nitrogen 17 mg/dL (9-20); Calcium 8.5 mg/dL (8.4-10.2); Carbon Dioxide 27 mmol/L (22-32); Chloride 104 mmol/L (98-107); Culture Indicated Urine Cult Not Indicated; Estimated Glomerular Filt Rate > 60.0 mL/min (>60); Globulin 3.1 g/dL (1.7-4.1); Glucose 100 mg/dL (80-110); HEMOLYSIS < 15 (0-50); Potassium 3.5 mmol/L (3.4-5.1); RBC Urine 0-1/HPF (0-5/HPF); Sodium 139 mmol/L (137-145); Total Protein 6.6 g/dL (6.3-8.2)
[2019-06-20 12:00] VITALS: BP 101/62; PULSE 68; RESP 14
[2019-06-20 13:00] VITALS: BP 118/63; PULSE 67; RESP 15; O2SAT 100
[2019-06-20 14:00] VITALS: BP 111/64; PULSE 75; RESP 14; O2SAT 95
--- NOTE | 2019-06-20 14:27 | PC.NURSE ---
Urinary catheter bag is leaking out of the bottom. Replaced catheter bag.
== END 2019-06-20 15:00 | disposition home or self-care (01) ==
PROVIDERS: Emergency Medicine; Emergency Provider Nurse Practitioner; PCP Internal Medicine
DX: L89.613 Pressure ulcer of right heel, stage 3 (principal); L89.610 Pressure ulcer of right heel, unstageable; I89.0 Lymphedema, not elsewhere classified; A49.01 Methicillin susceptible Staphylococcus aureus infection, unspecified site; R41.82 Altered mental status, unspecified; F01.50 Vascular dementia, unspecified severity, without behavioral disturbance, psychotic disturbance, mood disturbance, and anxiety
CPT/HCPCS: 11042; 36591; 71045; 80053; 81001; 85025; 96360; 99204; 99214; 99283; 99284

== ENCOUNTER → 2019-06-20 15:32 | Outpatient (ROUT) | payer SELFPAY ==
[2019-06-16 22:42] VITALS: BMI 24.3
== END ==
PROVIDERS: PCP Internal Medicine; Visit Provider Family Medicine
DX: L08.89 Other specified local infections of the skin and subcutaneous tissue (principal)
CPT/HCPCS: 87070; 87075; 87077; 87186; 87205

== ENCOUNTER → 2019-06-30 14:25 | Outpatient (CLI) | payer MEDICARE, SELFPAY ==
[2019-06-16 22:42] VITALS: BMI 24.3
== END ==
PROVIDERS: PCP Internal Medicine; Visit Provider Family Medicine
DX: L89.613 Pressure ulcer of right heel, stage 3 (principal); I73.9 Peripheral vascular disease, unspecified
CPT/HCPCS: 11042; 87070; 87075; 87077; 87147; 87186; 87205

== ENCOUNTER → 2019-07-06 13:11 | Outpatient (CLI) | payer MEDICARE, SELFPAY ==
[2019-06-16 22:42] VITALS: BMI 24.3
--- NOTE | 2019-07-06 | DI.US.S_ITS ---
PROCEDURE: US ARTERIAL DUPLEX LE RT INDICATIONS: PERIPHERAL VASCULAR DISEASE TECHNIQUE: Color and pulse Doppler interrogation was performed of the right lower extremity arterial system, with image documentation. COMPARISON: [facility], CR, XR CHEST 1V, 06/20/2019, 11:31. [facility], US, US PERIPH VENOUS LOW EXTREM RT, 01/18/2019, 8:17. US, VASCULAR SCREENING, 08/03/2011, 13:40. FINDINGS: Common femoral artery: 120 cm/sec, with triphasic flow. Deep femoral artery: 90 cm/sec, with triphasic flow. Proximal superficial femoral artery: 89 cm/sec, with triphasic flow. Mid superficial femoral artery: 66 cm/sec, with triphasic flow. Distal superficial femoral artery: 72 cm/sec, with biphasic flow. Popliteal artery: Ranging from 57-72 cm/sec, with triphasic flow. Posterior tibial artery: Ranging from 27-41 cm/sec, with triphasic flow. A small portion of the distal posterior tibial artery showed monophasic flow, possibly positional. Anterior tibial artery/dorsalis pedis: Ranging from 49-57 cm/sec, with triphasic flow. Toavr-scale imaging description: Mild calcific and soft plaque right lower extremity arterial vasculature. Overall arterial supply is free of focal high grade stenosis with elevated flow velocities IMPRESSION: No hemodynamically significant arterial stricture seen. The reported right lower extremity heel ulcer, nonhealing, may reflect far peripheral small vessel arterial insufficiency, however. Please correlate for presence of diabetes. Dictated by: Marcos Pope M.D. on 07/09/2019 at 6:16 Approved by: Marcos Pope M.D. on 07/09/2019 at 6:29
== END ==
PROVIDERS: PCP Internal Medicine; Visit Provider Family Medicine
DX: I73.9 Peripheral vascular disease, unspecified (principal); L89.610 Pressure ulcer of right heel, unstageable
CPT/HCPCS: 93926

== ENCOUNTER → 2019-07-06 15:22 | Outpatient (CLI) | payer MEDICARE, SELFPAY ==
[2019-06-16 22:42] VITALS: BMI 24.3
== END ==
PROVIDERS: PCP Internal Medicine; Visit Provider Family Medicine
DX: L89.610 Pressure ulcer of right heel, unstageable (principal); I73.9 Peripheral vascular disease, unspecified; L08.9 Local infection of the skin and subcutaneous tissue, unspecified; B95.61 Methicillin susceptible Staphylococcus aureus infection as the cause of diseases classified elsewhere; R60.0 Localized edema; Z79.2 Long term (current) use of antibiotics
CPT/HCPCS: 11042; 99214

== ENCOUNTER → 2019-07-06 16:26 | Outpatient (CLI) | payer SELFPAY ==
[2019-06-16 22:42] VITALS: BMI 24.3
--- NOTE | 2019-07-06 | DI.RAD.S_ITS ---
PROCEDURE: XR CALCANEOUS RT MIN 2V INDICATIONS: EVAL OSTEO ULCER TECHNIQUE: Two views of the calcaneus were acquired. COMPARISON: None. FINDINGS: Bones: No fractures or dislocations. No suspicious bony lesions. Minimal plantar calcaneal spur Soft tissues: No suspicious calcifications. Achilles tendon appears normal. IMPRESSION: Minimal plantar calcaneal spur. No focal osseous destruction to suggest advanced osteomyelitis. If there is persistent clinical concern, continued short interval radiographic followup or contrast enhanced MRI could be performed to assess for early infection. Dictated by: Adrian García M.D. on 07/06/2019 at 17:33 Approved by: Adrian García M.D. on 07/06/2019 at 17:35
== END ==
PROVIDERS: PCP Internal Medicine; Visit Provider Family Medicine
DX: L89.610 Pressure ulcer of right heel, unstageable (principal); I73.9 Peripheral vascular disease, unspecified
CPT/HCPCS: 73650; 93926

== ENCOUNTER → 2019-07-13 16:06 | Outpatient (CLI) | payer MEDICARE, SELFPAY ==
[2019-06-16 22:42] VITALS: BMI 24.3
== END ==
PROVIDERS: PCP Internal Medicine; Visit Provider Family Medicine
DX: L89.610 Pressure ulcer of right heel, unstageable (principal); R60.0 Localized edema; Q33.1 Accessory lobe of lung; Z79.84 Long term (current) use of oral hypoglycemic drugs; Z91.19 Patient's noncompliance with other medical treatment and regimen
CPT/HCPCS: 11042; 87070; 87075; 87205

== ENCOUNTER → 2019-07-18 12:41 | Outpatient (CLI) | payer MEDICARE, SELFPAY ==
[2019-06-16 22:42] VITALS: BMI 24.3
--- NOTE | 2019-07-18 | DI.CT.S_ITS ---
PROCEDURE: CT ANGIO ABD AORTA RUNOFF INDICATIONS: Pressure ulcer of right heel, stage 4 TECHNIQUE: After the administration of intravenous contrast, 2.5 mm sections acquired from T12 to the feet, with optional delayed image acquisition from the knees to the feet. 3-dimensional maximum intensity projection (MIP) coronal and sagittal reformats, and/or 3-dimensional volume rendering reformatting was then performed. For radiation dose reduction, the following was used: automated exposure control. COMPARISON: None. FINDINGS: Image quality: Excellent. Extravascular tissues: The lungs and heart are not visualized. Liver is normal in size and enhancement. Circumscribed low density lesions are present within the liver suggesting simple hepatic cysts which are incompletely characterized. Gallbladder is unremarkable. Biliary system is non dilated. Pancreas enhances normally. Spleen is normal in size and enhancement. No adrenal nodules. Kidneys are normal in size and enhancement, without hydronephrosis. Subcentimeter low-density cortical cystic lesions are present within the kidneys suggesting simple renal cysts which are incompletely characterized. Non opacified bowel loops demonstrate normal wall thickness and enhancement. No free fluid or air. No retroperitoneal or mesenteric adenopathy. No ventral hernias. Bladder wall thickness is normal. No inguinal hernias or adenopathy. No suspicious bony lesions. No vertebral body compression fractures. There is diffuse edema and soft tissue swelling throughout the right lower extremity. Marked thickening of the subcutaneous tissues is present secondary to severe edema. No findings to suggest edema within the deep fascial layer. Abdominal aorta: Scattered atheromatous calcifications are present throughout the visualized portions of the abdominal aorta. No aneurysmal dilatation or stenosis. The bilateral renal arteries are patent. The celiac axis and SMA are patent. The ROSAURA is patent. Right lower extremity: The right common iliac artery is patent with mild atheromatous calcifications. No hemodynamically significant stenosis. The right internal iliac artery is patent. A moderate to high-grade stenosis is present within the midportion of the right external iliac artery secondary to atheromatous calcification. Mild stenosis is present within the right common femoral artery secondary to calcification. The profunda is patent. The right SFA is patent throughout its course with mild mural irregularity secondary to atheromatous calcification. The right popliteal artery is patent. The right anterior anterior tibial and peroneal arteries are patent to the level of the foot. The distal posterior tibial artery appears to be supplied by the peroneal artery. No posterior tibial artery is visualized more superiorly. Left lower extremity: The left common iliac, internal iliac, external iliac, common femoral, profunda, superficial femoral, and popliteal arteries are widely patent. There is poor opacification of the infrageniculate arteries suggesting a delayed contrast bolus with respect to the right lower extremity. The infrageniculate arteries cannot be adequately characterized given the lack of opacification. IMPRESSION: 1. Severe, diffuse soft tissue swelling throughout the right lower extremity secondary to severe edema within the subcutaneous fat. These findings are likely associated with the patient's prior history of lymphadenectomy of the right inguinal region. 2. Focal moderate grade stenosis within the right common iliac artery which may be hemodynamically significant. 3. 2 vessel right lower extremity runoff. 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 4. No hemodynamically significant stenosis within the left lower extremity area however, the infrageniculate arteries are not characterize given inadequate opacification of the [id number] vessels. These findings were discussed with Dr. High at 4:05 PM on 07/19/19. Dictated by: Tiesha Bolden M.D. on 07/19/2019 at 15:49 Approved by: Tiesha Bolden M.D. on 07/19/2019 at 16:06
== END ==
PROVIDERS: PCP Internal Medicine; Visit Provider Family Medicine
DX: L89.614 Pressure ulcer of right heel, stage 4 (principal); R60.0 Localized edema; I70.201 Unspecified atherosclerosis of native arteries of extremities, right leg; I70.0 Atherosclerosis of aorta; M79.89 Other specified soft tissue disorders
CPT/HCPCS: 36415; 75635; 82565; 84520; Q9967

== ENCOUNTER → 2019-07-18 12:52 | Outpatient (CLI) | payer MEDICARE, SELFPAY ==
[2019-06-16 22:42] VITALS: BMI 24.3
[2019-07-18 13:19] LABS: BUN Creatinine Ratio 36.7 (6-22); Blood Urea Nitrogen 22 mg/dL (9-20); Estimated Glomerular Filt Rate > 60.0 mL/min (>60)
== END ==
PROVIDERS: PCP Internal Medicine; Visit Provider Family Medicine
DX: L97.428 Non-pressure chronic ulcer of left heel and midfoot with other specified severity (principal)
CPT/HCPCS: 36415; 82565; 84520

== ENCOUNTER → 2019-07-20 13:49 | Outpatient (CLI) | payer MEDICARE, SELFPAY ==
[2019-06-16 22:42] VITALS: BMI 24.3
== END ==
PROVIDERS: PCP Internal Medicine; Visit Provider Family Medicine
DX: L89.614 Pressure ulcer of right heel, stage 4 (principal); I73.9 Peripheral vascular disease, unspecified; I89.0 Lymphedema, not elsewhere classified
CPT/HCPCS: 11042; 99212

== ENCOUNTER → 2019-07-26 13:56 | Outpatient (CLI) | payer MEDICARE, SELFPAY ==
[2019-06-16 22:42] VITALS: BMI 24.3
== END ==
PROVIDERS: PCP Internal Medicine; Visit Provider Family Medicine
DX: L89.614 Pressure ulcer of right heel, stage 4 (principal); I73.9 Peripheral vascular disease, unspecified
CPT/HCPCS: 11042; 97605

== ENCOUNTER → 2019-08-02 16:46 | Outpatient (ROUT) | payer MEDICARE, SELFPAY ==
[2019-06-16 22:42] VITALS: BMI 24.3
== END ==
PROVIDERS: PCP Internal Medicine; Visit Provider Family Medicine
DX: L08.9 Local infection of the skin and subcutaneous tissue, unspecified (principal); L89.614 Pressure ulcer of right heel, stage 4; I73.9 Peripheral vascular disease, unspecified
CPT/HCPCS: 11043; 87070; 87075; 87077; 87147; 87186; 87205; 99214

== ENCOUNTER → 2019-08-08 13:13 | Outpatient (CLI) | payer MEDICARE, SELFPAY ==
[2019-06-16 22:42] VITALS: BMI 24.3
--- NOTE | 2019-08-08 | DI.RAD.S_ITS ---
PROCEDURE: XR CALCANEOUS RT MIN 2V INDICATIONS: OSTEOMYELITIS\ TECHNIQUE: Two views of the calcaneus were acquired. COMPARISON: [facility], CR, XR CALCANEOUS RT MIN 2V, 07/06/2019, 16:39. FINDINGS: Bones: No fractures or dislocations. No suspicious bony lesions. Soft tissues: No suspicious calcifications. Achilles tendon appears normal. Deep soft tissue ulceration is present at the posterolateral aspect of the right foot abutting the posterior calcaneal border. IMPRESSION: No osteomyelitis identified. There is a deep ulceration at the calcaneal posterior margin laterally, which extends almost to the calcaneal cortical surface, but in this area ostiolysis is not found Dictated by: Marcos Pope M.D. on 08/08/2019 at 15:25 Approved by: Marcos Pope M.D. on 08/08/2019 at 15:27
--- NOTE | 2019-08-08 | DI.RAD.S_ITS ---
PROCEDURE: FL GUIDED PICC PLACEMENT INDICATIONS: PICC PLACEMENT COMPARISON: None. FINDINGS: PICC was placed by the intravenous therapy team from the left side. Fluoroscopic spot film demonstrates the tip of PICC projecting to the area of distal SVC. IMPRESSION: Tip of PICC projects to the area of distal SVC Dictated by: Marcos Pope M.D. on 08/08/2019 at 15:02 Approved by: Marcos Pope M.D. on 08/08/2019 at 15:03
== END ==
PROVIDERS: PCP Internal Medicine; Visit Provider Family Medicine
DX: Z45.2 Encounter for adjustment and management of vascular access device (principal); L89.610 Pressure ulcer of right heel, unstageable
CPT/HCPCS: 36573; 73650

== ENCOUNTER 2019-08-12 20:00 | Emergency (ER) | payer MEDICARE, SELFPAY ==
[2019-06-16 22:42] VITALS: BMI 24.3
[2019-08-12 20:03] VITALS: BP 146/87; PULSE 96; RESP 16; TEMP 36.4; O2SAT 97
--- NOTE | 2019-08-12 20:20 | ED_ITS ---
HPI - Extremity Injury (Lower) General Chief Complaint: Extremity Injury, Lower Stated Complaint: groin edema Time Seen by Provider: 08/12/19 20:02 Source: EMS and RN notes reviewed Mode of arrival: EMS Limitations: altered mental status History of Present Illness HPI Narrative: Patient is an 79-year-old male brought by EMS from his nursing facility for concern of his chronic right lower extremity swelling extending up to his groin area. Patient has no complaints however seems to be somewhat confused about why he is here. He reports no urinary symptoms. Related Data Home Medications Medication Instructions Recorded Confirmed aspirin 81 mg PO DAILY 12/15/18 06/20/19 cholecalciferol (vitamin D3) 1,000 unit PO DAILY 12/15/18 06/20/19 [Vitamin D3] cyanocobalamin (vitamin B-12) 500 mcg PO DAILY 12/15/18 06/20/19 [Vitamin B-12] acetaminophen [Tylenol Arthritis 650 mg PO TID 06/20/19 06/20/19 Pain] ascorbic acid (vitamin C) 500 mg PO DAILY 06/20/19 06/20/19 bisacodyl 5 - 10 mg PO PRN PRN 06/20/19 06/20/19 bisacodyl 10 mg OK PRN PRN 06/20/19 06/20/19 doxycycline hyclate 100 mg PO [id number] 06/20/19 06/20/19 furosemide 40 mg PO DAILY 06/20/19 06/20/19 magnesium hydroxide [Milk of 30 ml PO PRN PRN 06/20/19 06/20/19 Magnesia] sodium phosphates [Fleet Enema] 1 ea OK PRN PRN 06/20/19 06/20/19 Previous Rx's Medication Instructions Recorded tamsulosin [Flomax] 0.4 mg PO DAILY #30 cap 01/26/19 quetiapine [Seroquel] 12.5 mg PO BID #30 tab 06/19/19 furosemide [Lasix] 40 mg PO DAILY 5 Days #5 tab 08/12/19 Allergies Allergy/AdvReac Type Severity Reaction Status Date / Time hydromorphone [From Dilaudid] Allergy Verified 06/16/19 18:02 Review of Systems Review of Systems Narrative: Patient did answer review of systems questions however somewhat concerned about his comprehension. Constitutional Constitutional: Denies fatigue Cardiovascular Cardiovascular: Denies chest pain and Denies dyspnea Respiratory Respiratory: Denies dyspnea Gastrointestinal Gastrointestinal: Denies change in bowel habits Genitourinary Genitourinary: Denies dysuria Musculoskeletal Comments: Right lower extremity swelling Integumentary/Breasts Skin/Breast: Denies rash Endocrine Endocrine: Denies fatigue Hematologic/Lymphatic Hematologic/Lymphatic: Denies easy bleeding and Denies easy bruising [facility] Medical History Candidiasis of scrotum (Chronic) Cellulitis and abscess of foot (Acute) History of prostate cancer (Chronic) HTN (hypertension) (Chronic) Hypokalemia (Acute) Incontinence (Chronic) MRSA cellulitis of right foot (Acute) Stage III pressure ulcer of heel (Acute) Social History household members: spouse and other Smoking Status: Never smoker alcohol intake: current Exam Initial Vital Signs Initial Vital Signs: Vital Signs Temperature 97.5 F L 08/12/19 20:03 Pulse Rate 96 H 08/12/19 20:03 Respiratory Rate 16 08/12/19 20:03 Blood Pressure 146/87 H 08/12/19 20:03 Pulse Oximetry 97 08/12/19 20:03 Const General: comfortable Orientation: alert, awake, oriented to person, oriented to place and not oriented to time HENNM Head: normal to inspection and normocephalic Resp Effort & Inspection: normal respiratory effort Cardio Rate: regular rate Other: Patient with swelling of his penile shaft and also the right side of his scrotum. Urethra is open Skin Other: Patient with a open pressure ulcer on the heel of his right foot. There is no surrounding erythema. This is not a new wound. Extrem Other: Unilateral right lower extremity swelling without signs of cellulitis Course Orders Ordered: Discontinued Medications Furosemide (Lasix) 40 mg PO NOW ONE Stop: 08/12/19 20:28 Last Admin: 08/12/19 20:59 Dose: 40 mg Documented by: DALE Vital Signs Vital signs: Vital Signs - 8 hr 08/12/19 20:03 08/12/19 22:04 08/12/19 22:58 Temperature 97.5 F L Pulse Rate 96 H 76 79 Respiratory Rate 16 16 Blood Pressure 146/87 H 120/74 Blood Pressure [Right Arm] 115/79 Pulse Oximetry 97 97 96 MDM - Extremity Injury (Lower) MDM Narrative Medical decision making narrative: Patient has right lower extremity swelling however review of his labs shows this is not new. He does have a pressure ulcer on his right heel however again this does not appear to be new. He does have penile shaft swelling and also right-sided josemanuel scrotum swelling however is able to urinate without any problems. Review of his medications does not show that he is on any Lasix. He was given a dose here and will send home with Lasix. There is no signs of infections. No indication for antibiotics. Patient was given a prescription for a couple days of Lasix. Discharge Plan Departure Patient Disposition: Home Clinical Impression: Edema leg Edema Qualifiers: Edema type: unspecified Qualified Code(s): R60.9 - Edema, unspecified Discharge Date/Time: 08/12/19 23:01 Instructions: Edema (Alternative Therapy), DI for Peripheral Edema, Unilateral Activity Restrictions/Additional Instructions: I recommend that Jimi's start taking Lasix on a daily basis. He was given his 1st dose on 08/12 here in the emergency department. I recommend on Wednesday his primary provider be contacted for further evaluation. He can return to the emergency department if signs of cellulitis develop more if he has problems urinating. Prescriptions: New furosemide [Lasix] 40 mg tablet 40 mg PO DAILY 5 Days Qty: 5 RF: 0 No Action aspirin 81 mg Tablet,Delayed Release (Dr/Ec) 81 mg PO DAILY RF: 0 cyanocobalamin (vitamin B-12) [Vitamin B-12] 500 mcg Tablet 500 mcg PO DAILY RF: 0 cholecalciferol (vitamin D3) [Vitamin D3] 1,000 unit Tablet 1,000 unit PO DAILY RF: 0 tamsulosin [Flomax] 0.4 mg Capsule 0.4 mg PO DAILY Qty: 30 RF: 0 ascorbic acid (vitamin C) 500 mg Capsule 500 mg PO DAILY RF: 0 furosemide 40 mg Tablet 40 mg PO DAILY RF: 0 magnesium hydroxide [Milk of Magnesia] 400 mg/5 mL Suspension 30 ml PO PRN PRN (Reason: Constipation) RF: 0 bisacodyl 10 mg Suppository 10 mg OK PRN PRN (Reason: Constipation) RF: 0 Fleet Enema 19-7 gram/118 mL Enema 1 ea OK PRN PRN (Reason: Constipation) RF: 0 bisacodyl 5 mg Tablet 5 - 10 mg PO PRN PRN (Reason: mild-severe constipation) RF: 0 acetaminophen [Tylenol Arthritis Pain] 650 mg tablet extended release 650 mg PO TID RF: 0 doxycycline hyclate 100 mg tablet 100 mg PO [id number] RF: 0 quetiapine [Seroquel] 25 mg tablet 12.5 mg PO BID Qty: 30 RF: 0 Referrals: Bill Alarcon MD [Primary Care Provider] -
[2019-08-12] MEDS: FUROSEMIDE 40 MG TABLET PO (20:59)
[2019-08-12 22:04] VITALS: BP 115/79; PULSE 76; O2SAT 97
[2019-08-12 22:58] VITALS: BP 120/74; PULSE 79; RESP 16; O2SAT 96
== END 2019-08-12 23:01 | disposition home or self-care (01) ==
LOC: ED 20:40
PROVIDERS: Emergency Provider Emergency Medicine; PCP Internal Medicine
DX: R60.9 Edema, unspecified (principal)
CPT/HCPCS: 99282; 99283

== ENCOUNTER → 2019-08-16 15:41 | Outpatient (CLI) | payer MEDICARE, SELFPAY ==
[2019-06-16 22:42] VITALS: BMI 24.3
== END ==
PROVIDERS: PCP Internal Medicine; Visit Provider Family Medicine
DX: L89.614 Pressure ulcer of right heel, stage 4 (principal); I73.9 Peripheral vascular disease, unspecified; B95.62 Methicillin resistant Staphylococcus aureus infection as the cause of diseases classified elsewhere; B95.2 Enterococcus as the cause of diseases classified elsewhere; B96.29 Other Escherichia coli [E. coli] as the cause of diseases classified elsewhere
CPT/HCPCS: 11042; 99214

== ENCOUNTER 2019-08-18 03:02 | Emergency (ER) | payer MEDICARE, SELFPAY ==
[2019-06-16 22:42] VITALS: BMI 24.3
--- NOTE | 2019-08-18 03:04 | DI.CT.S_ITS ---
PROCEDURE: CT CERVICAL SPINE WO CON INDICATIONS: fall with neck pain TECHNIQUE: Noncontrast 3 mm thick sections acquired from the skull base to the T4 level. Sagittal and coronal reformats were then constructed. For radiation dose reduction, the following was used: automated exposure control, adjustment of mA and/or kV according to patient size. COMPARISON: None. FINDINGS: Image quality: Excellent. Bones: No fractures or dislocations. Visualized superior ribs are intact. Spine degenerative disc disease and facet arthropathy. Soft tissues: Prevertebral soft tissues are normal in thickness. No paravertebral hematomas. No apical pneumothoraces. 1.6 cm hypoattenuating nodule noted in the right lobe of the thyroid gland. 1.4 cm hypoattenuating nodule noted in the left lobe of the thyroid gland. Left-sided PICC line noted. IMPRESSION: 1. No fracture. No acute osseous lesion. If symptoms and/or clinical suspicion for pathology persists, evaluation with MRI may be helpful for further assessment. 2. Thyroid nodules. Recommend thyroid ultrasound for definitive characterization when clinically feasible. Dictated by: Massiel Lloyd MD, PhD on 08/18/2019 at 7:44 Approved by: Massiel Lloyd MD, PhD on 08/18/2019 at 7:48
--- NOTE | 2019-08-18 03:04 | DI.CT.S_ITS ---
PROCEDURE: CT HEAD/BRAIN WO CON INDICATIONS: fall with head injury TECHNIQUE: Noncontrast 4.5 mm thick angled axial sections acquired from the foramen magnum to the vertex, with coronal and sagittal reformats. For radiation dose reduction, the following was used: automated exposure control, adjustment of mA and/or kV according to patient size. COMPARISON: [facility], CT, CT HEAD/BRAIN WO CON, 01/17/2019, 20:33. FINDINGS: Image quality: Excellent. CSF spaces: Basal cisterns are patent. No extra-axial fluid collections. The ventricles are symmetric in size and shape. Brain: No intracranial bleeds or masses. There is cerebral volume loss for age, with resultant ventricular and sulcal prominence. There are periventricular and deep white matter chronic small vessel ischemic changes. Small chronic bilateral putaminal lacunar infarcts versus prominent perivascular spaces. There is intracranial internal carotid artery atherosclerosis. Skull and face: Calvarium and visualized facial bones appear intact, without suspicious lesions. Sinuses: Visualized sinuses and mastoids are clear. IMPRESSION: No acute intracranial disease process. Dictated by: Massiel Lloyd MD, PhD on 08/18/2019 at 7:05 Approved by: Massiel Lloyd MD, PhD on 08/18/2019 at 7:07
--- NOTE | 2019-08-18 03:06 | ED_ITS ---
HPI - Head Injury General Chief complaint: Fall Stated complaint: Rolled out of bed and hit head Time Seen by Provider: 08/18/19 03:03 Source: patient and EMS Mode of arrival: EMS Limitations: altered mental status History of Present Illness HPI Narrative: 79-year-old male with history of dementia presents by EMS for evaluation of fall from bed with head injury and neck pain. The patient states that he was trying to see something under his bed when he rolled out and landed on the ground. It is thought that he was there for 30 minutes at most. He does have an abrasion on his forehead and complains of some neck pain. He denies any numbness, tingling or weakness. He denies any other specifics but does admi ttedly a poor historian. He was seen recently for significant swelling of the right lower extremity and was put on Lasix. Patient denies any vomiting, blurred vision or trouble speech. Denies chest pain or shortness of breath. He denies any injury to his shoulders or hips MD Complaint: head injury and fall Onset (ago): hour(s) Arrival Conditions: C-spine immobilization present Mechanism of Injury: fall Place: home Loss of Consciousness: unsure Location of injury: frontal Severity: moderate Quality: other Radiation: none Other Injuries: none Associated symptoms: confusion and neck pain Related Data Home Medications Medication Instructions Recorded Confirmed aspirin 81 mg PO DAILY 12/15/18 06/20/19 cholecalciferol (vitamin D3) 1,000 unit PO DAILY 12/15/18 06/20/19 [Vitamin D3] cyanocobalamin (vitamin B-12) 500 mcg PO DAILY 12/15/18 06/20/19 [Vitamin B-12] acetaminophen [Tylenol Arthritis 650 mg PO TID 06/20/19 06/20/19 Pain] ascorbic acid (vitamin C) 500 mg PO DAILY 06/20/19 06/20/19 bisacodyl 5 - 10 mg PO PRN PRN 06/20/19 06/20/19 bisacodyl 10 mg AR PRN PRN 06/20/19 06/20/19 doxycycline hyclate 100 mg PO [id number] 06/20/19 06/20/19 furosemide 40 mg PO DAILY 06/20/19 06/20/19 magnesium hydroxide [Milk of 30 ml PO PRN PRN 06/20/19 06/20/19 Magnesia] sodium phosphates [Fleet Enema] 1 ea AR PRN PRN 06/20/19 06/20/19 Previous Rx's Medication Instructions Recorded tamsulosin [Flomax] 0.4 mg PO DAILY #30 cap 01/26/19 quetiapine [Seroquel] 12.5 mg PO BID #30 tab 06/19/19 furosemide [Lasix] 40 mg PO DAILY 5 Days #5 tab 08/12/19 Allergies Allergy/AdvReac Type Severity Reaction Status Date / Time hydromorphone [From Dilaudid] Allergy Verified 06/16/19 18:02 Review of Systems Constitutional Constitutional: Denies chills, Denies fatigue, Denies fever(s), Denies frequent falls, Denies lethargy and Denies weakness Eyes Eyes: Denies change in vision, Denies eye discharge, Denies irritation and Denies loss of vision ENT Ears, Nose, Mouth, and Throat: Denies change in voice, Denies dizziness, Denies neck pain, Denies sore throat and Denies throat swelling Cardiovascular Cardiovascular: Denies chest pain, Denies irregular heart rhythm, Denies lightheadedness, Denies palpitations, Denies dyspnea, Denies dyspnea on exertion and Denies orthopnea Respiratory Respiratory: Denies cough, Denies dyspnea, Denies dyspnea on exertion and Denies wheezing Gastrointestinal Gastrointestinal: Denies abdominal pain, Denies change in bowel habits, Denies diarrhea, Denies nausea and Denies vomiting Genitourinary Genitourinary: Denies hematuria, Denies flank pain, Denies urinary incontinence and Denies urinary urgency Musculoskeletal Musculoskeletal: Denies back pain, Denies muscle weakness, Denies neck pain, Denies numbness and Denies tingling Integumentary/Breasts Skin/Breast: Denies pruritus, Denies erythema, Denies rash and Reports wounds Neurologic Neurologic: Denies behavioral changes, Denies confusion, Denies dizziness, Denies frequent falls, Denies loss of vision, Denies numbness, Denies tingling and Denies weakness Psychiatric Psychiatric: Denies anxiety, Denies behavioral changes, Denies confusion, Denies depression, Denies homicidal ideation and Denies suicidal ideation Endocrine Endocrine: Denies fatigue, Denies flushing and Denies palpitations Hematologic/Lymphatic Hematologic/Lymphatic: Denies easy bruising Allergic/Immunologic Allergic/Immunologic: Denies urticaria, Denies throat swelling and Denies wheezing [facility] Medical History Candidiasis of scrotum (Chronic) Cellulitis and abscess of foot (Acute) History of prostate cancer (Chronic) HTN (hypertension) (Chronic) Hypokalemia (Acute) Incontinence (Chronic) MRSA cellulitis of right foot (Acute) Stage III pressure ulcer of heel (Acute) Surgical History History of prostatectomy (Resolved) History of squamous cell carcinoma excision (Resolved) Family History Other Family history non-contributory Social History household members: spouse and other Smoking Status: Never smoker alcohol intake: current Family History Other Family history non-contributory Social History household members: spouse and other Smoking Status: Never smoker alcohol intake: current Exam Narrative Exam Narrative: GENERAL: [79] year old patient appears stated age. He appears pleasantly confused, at his baseline. I have seen him before as have the nursing staff and EMS. There is no gross depart from the norm HEAD: Superficial abrasion on forehead in the absence of obvious signs of depressed skull fracture EYES: Pupils equal round and reactive. Extraocular motions intact. No scleral icterus. No injection or drainage. ENT: Nose without bleeding, purulent drainage. Throat without erythema, tonsillar hypertrophy or exudate. Airway patent. NECK: Trachea midline. Non tender CARDIOVASCULAR: Regular rate and rhythm without murmurs, gallops, or rubs. RESPIRATORY: Clear to auscultation. Breath sounds equal bilaterally. No wheezes, rales, or rhonchi. GASTROINTESTINAL: Abdomen soft, non-tender, nondistended. EXTREMITIES: Small skin tear on dorsum of R hand. No edema or joint tenderness. Swelling of RLE, no change from prior. Heel ulcer, no pain, drainage or canela rrounding erythema BACK: Nontender without deformity or crepitance. No flank tenderness. SKIN: No rash or erythema of visible areas Initial Vital Signs Initial Vital Signs: Vital Signs Temperature 97.3 F L 08/18/19 03:16 Pulse Rate 87 08/18/19 03:16 Respiratory Rate 15 08/18/19 03:16 Blood Pressure 119/65 08/18/19 03:16 Pulse Oximetry 95 08/18/19 03:16 Course Orders Ordered: ED Orders 08/18/19 03:04 CT cervical spine wo con Stat CT head/brain wo con Stat 08/18/19 03:30 Basic Metabolic Panel Stat Complete Blood Count AUTO DIFF Stat Troponin & CK Cardiac Panel Stat Discontinued Medications Potassium Chloride (Potassium Chloride) 40 meq PO NOW ONE Stop: 08/18/19 04:21 Last Admin: 08/18/19 04:36 Dose: Not Given Documented by: UMERFARL Potassium Chloride (Klor-Con M20) 40 meq PO NOW ONE Stop: 08/18/19 04:23 Last Admin: 08/18/19 04:36 Dose: 40 meq Documented by: BLANE Vital Signs Vital signs: Vital Signs - 8 hr 08/18/19 03:16 08/18/19 04:51 Temperature 97.3 F L Pulse Rate 87 78 Respiratory Rate 15 17 Blood Pressure 119/65 Blood Pressure [Right Arm] 118/67 Pulse Oximetry 95 99 MDM - Head Injury Lab Data Result diagrams: 08/18/19 03:30 08/18/19 03:30 Labs: Lab Results 08/18/19 08/18/19 Range/Units 03:30 03:30 WBC 5.2 (4.5-11.0) X10^3/uL RBC 3.83 L (4.5-5.9) X10^6/uL Hgb 11.6 L (13.5-17.5) g/dL Hct 34.0 L (41-53) % MCV 88.8 (80-100) fL MCH 30.2 (26-34) PG MCHC 34.0 (30-36) % RDW 14.3 (11.6-14.8) % Plt Count 179 (150-400) X10^3/uL Neut % (Auto) 63.5 (50-75) % Lymph % (Auto) 18.7 L (25-40) % [place] % (Auto) 12.3 (3-14) % Eos % (Auto) 4.9 H (2-4) % Baso % (Auto) 0.6 (0-2) % Neut # (Auto) 3300 (9307-5227) /uL Lymph # (Auto) 1000 L (9919-8268) /uL [place] # (Auto) 600 (0-900) /uL Eos # (Auto) 300 (0-450) /uL Baso # (Auto) 0 (0-100) /uL Sodium 141 (137-145) mmol/L Potassium 3.3 L (3.4-5.1) mmol/L Chloride 106 (98-107) mmol/L Carbon Dioxide 27 (22-32) mmol/L BUN 21 H (9-20) mg/dL Creatinine 0.70 (0.66-1.25) mg/dL Estimated GFR > 60.0 (>60) mL/min BUN/Creatinine Ratio 30.0 H (6-22) Glucose 98 (80-110) mg/dL Calcium 8.8 (8.4-10.2) mg/dL Total Creatine Kinase 161 (55-170) U/L CK-MB (CK-2) 4.19 H (<2.37) ng/mL CK-MB (CK-2) Rel Index 2.6 (1.5-5.0) % Troponin I < 0.012 (0.01-0.034) ng/mL Imaging Data CT Head/Cspine: Radiologist's impression: No bleed No fracture Discharge Plan Departure Prescriptions: No Action aspirin 81 mg Tablet,Delayed Release (Dr/Ec) 81 mg PO DAILY RF: 0 cyanocobalamin (vitamin B-12) [Vitamin B-12] 500 mcg Tablet 500 mcg PO DAILY RF: 0 cholecalciferol (vitamin D3) [Vitamin D3] 1,000 unit Tablet 1,000 unit PO DAILY RF: 0 tamsulosin [Flomax] 0.4 mg Capsule 0.4 mg PO DAILY Qty: 30 RF: 0 ascorbic acid (vitamin C) 500 mg Capsule 500 mg PO DAILY RF: 0 furosemide 40 mg Tablet 40 mg PO DAILY RF: 0 magnesium hydroxide [Milk of Magnesia] 400 mg/5 mL Suspension 30 ml PO PRN PRN (Reason: Constipation) RF: 0 bisacodyl 10 mg Suppository 10 mg AR PRN PRN (Reason: Constipation) RF: 0 Fleet Enema 19-7 gram/118 mL Enema 1 ea AR PRN PRN (Reason: Constipation) RF: 0 bisacodyl 5 mg Tablet 5 - 10 mg PO PRN PRN (Reason: mild-severe constipation) RF: 0 acetaminophen [Tylenol Arthritis Pain] 650 mg tablet extended release 650 mg PO TID RF: 0 doxycycline hyclate 100 mg tablet 100 mg PO [id number] RF: 0 quetiapine [Seroquel] 25 mg tablet 12.5 mg PO BID Qty: 30 RF: 0 furosemide [Lasix] 40 mg tablet 40 mg PO DAILY 5 Days Qty: 5 RF: 0
[2019-08-18 03:16] VITALS: BP 119/65; PULSE 87; RESP 15; TEMP 36.3; O2SAT 95
[2019-08-18 03:47] LABS: Add Manual Diff / Slide Review NO; Basophils Absolute Auto 0 /uL (0-100); Basophils Percent Auto 0.6 % (0-2); Eosinophils Absolute Auto 300 /uL (0-450); Eosinophils Percent Auto 4.9 % (2-4); Hemoglobin 11.6 g/dL (13.5-17.5); Lymphocytes Absolute Auto 1000 /uL (1100-4500); Lymphocytes Percent Auto 18.7 % (25-40); Mean Corpuscular Hemoglobin 30.2 PG (26-34); Mean Corpuscular Volume 88.8 fL (80-100); Monocytes Absolute Auto 600 /uL (0-900); Monocytes Percent Auto 12.3 % (3-14); Neutrophils Absolute Auto 3300 /uL (1500-7000); Neutrophils Percent Auto 63.5 % (50-75); Platelet Count 179 X10^3/uL (150-400); Red Blood Cell Count 3.83 X10^6/uL (4.5-5.9); Red Cell Distribution Width 14.3 % (11.6-14.8); White Blood Cell Count 5.2 X10^3/uL (4.5-11.0)
[2019-08-18 03:50] LABS: Blood Urea Nitrogen 21 mg/dL (9-20); Calcium 8.8 mg/dL (8.4-10.2); Carbon Dioxide 27 mmol/L (22-32); Chloride 106 mmol/L (98-107); Creatine Kinase 161 U/L (55-170); Estimated Glomerular Filt Rate > 60.0 mL/min (>60); Glucose 98 mg/dL (80-110); HEMOLYSIS < 15 (0-50); Potassium 3.3 mmol/L (3.4-5.1); Sodium 141 mmol/L (137-145)
[2019-08-18 04:01] LABS: Troponin I < 0.012 ng/mL (0.01-0.034)
[2019-08-18 04:04] LABS: CKMB % Relative Index 2.6 % (1.5-5.0); Creatine Kinase MB 4.19 ng/mL (<2.37)
[2019-08-18] MEDS: POTASSIUM CHLORIDE 20 MEQ TAB 40 MEQ PO (04:36)
[2019-08-18 04:51] VITALS: BP 118/67; PULSE 78; RESP 17; O2SAT 99
[2019-08-18 07:47] VITALS: BP 104/71; PULSE 77; RESP 16; O2SAT 97
== END 2019-08-18 07:49 | disposition home or self-care (01) ==
PROVIDERS: Emergency Provider Emergency Medicine; PCP Internal Medicine
DX: S00.81XA Abrasion of other part of head, initial encounter (principal); S13.9XXA Sprain of joints and ligaments of unspecified parts of neck, initial encounter; S61.411A Laceration without foreign body of right hand, initial encounter; W06.XXXA Fall from bed, initial encounter
CPT/HCPCS: 36415; 70450; 72125; 80048; 82550; 82553; 84484; 85025; 99282; 99284

== ENCOUNTER → 2019-08-21 08:06 | Outpatient (ROUT) | payer SELFPAY ==
[2019-06-16 22:42] VITALS: BMI 24.3
[2019-08-21 08:24] LABS: Vancomycin Trough 17.7 ug/mL (10-20)
== END ==
PROVIDERS: PCP Internal Medicine; Visit Provider Internal Medicine
DX: T36.8X1A Poisoning by other systemic antibiotics, accidental (unintentional), initial encounter (principal)
CPT/HCPCS: 80202; 81001; 87070; 87075; 87077; 87147; 87186; 87205

== ENCOUNTER → 2019-08-23 10:38 | Outpatient (CLI) | payer MEDICARE, SELFPAY ==
[2019-06-16 22:42] VITALS: BMI 24.3
== END ==
PROVIDERS: PCP Internal Medicine; Visit Provider Family Medicine
DX: L89.614 Pressure ulcer of right heel, stage 4 (principal); I73.9 Peripheral vascular disease, unspecified; L08.9 Local infection of the skin and subcutaneous tissue, unspecified; B95.62 Methicillin resistant Staphylococcus aureus infection as the cause of diseases classified elsewhere; B95.2 Enterococcus as the cause of diseases classified elsewhere; B96.29 Other Escherichia coli [E. coli] as the cause of diseases classified elsewhere; F01.50 Vascular dementia, unspecified severity, without behavioral disturbance, psychotic disturbance, mood disturbance, and anxiety
CPT/HCPCS: 11042; 87070; 87077; 87147; 87186; 87205

== ENCOUNTER → 2019-08-30 10:03 | Outpatient (CLI) | payer MEDICARE, SELFPAY ==
[2019-06-16 22:42] VITALS: BMI 24.3
== END ==
PROVIDERS: PCP Internal Medicine; Visit Provider Family Medicine
DX: L89.614 Pressure ulcer of right heel, stage 4 (principal); I73.9 Peripheral vascular disease, unspecified
CPT/HCPCS: 11042; 87070; 87075; 87077; 87205

== ENCOUNTER → 2019-09-06 09:59 | Outpatient (CLI) | payer MEDICARE, SELFPAY ==
[2019-06-16 22:42] VITALS: BMI 24.3
== END ==
PROVIDERS: PCP Internal Medicine; Visit Provider Family Medicine
DX: I73.9 Peripheral vascular disease, unspecified (principal); L89.614 Pressure ulcer of right heel, stage 4
CPT/HCPCS: 11042

== ENCOUNTER → 2019-09-13 12:58 | Outpatient (CLI) | payer MEDICARE, SELFPAY ==
[2019-06-16 22:42] VITALS: BMI 24.3
== END ==
PROVIDERS: PCP Internal Medicine; Visit Provider Family Medicine
DX: L89.614 Pressure ulcer of right heel, stage 4 (principal); I73.9 Peripheral vascular disease, unspecified
CPT/HCPCS: 11042

== ENCOUNTER → 2019-09-16 13:03 | Outpatient (CLI) | payer MEDICARE, SELFPAY ==
[2019-06-16 22:42] VITALS: BMI 24.3
--- NOTE | 2019-09-16 | DI.RAD.S_ITS ---
PROCEDURE: XR CALCANEOUS RT MIN 2V INDICATIONS: ulcer stage 4 TECHNIQUE: Two views of the calcaneus were acquired. COMPARISON: None. FINDINGS: Bones: No fractures or dislocations. No micaela bony erosions or periosteal reaction can be seen. Soft tissues: Soft tissue irregularity and soft tissue gas can be seen. IMPRESSION: Soft tissue ulcer, without a micaela underlying bony abnormality seen by plain film. If there is strong suspicion for developing osteomyelitis, please consider a dedicated MRI with contrast for further evaluation (assuming that there is no contraindication to MRI). Dictated by: Ruben Hale M.D. on 09/16/2019 at 12:53 Approved by: Ruben Hale M.D. on 09/16/2019 at 12:54
== END ==
PROVIDERS: PCP Internal Medicine; Visit Provider Family Medicine
DX: L89.614 Pressure ulcer of right heel, stage 4 (principal)
CPT/HCPCS: 73650

== ENCOUNTER → 2019-09-20 10:00 | Outpatient (CLI) | payer MEDICARE, SELFPAY ==
[2019-06-16 22:42] VITALS: BMI 24.3
== END ==
PROVIDERS: PCP Internal Medicine; Visit Provider Family Medicine
DX: L89.614 Pressure ulcer of right heel, stage 4 (principal); L89.313 Pressure ulcer of right buttock, stage 3; R60.0 Localized edema; F01.50 Vascular dementia, unspecified severity, without behavioral disturbance, psychotic disturbance, mood disturbance, and anxiety
CPT/HCPCS: 11042; 99214

== ENCOUNTER → 2019-09-22 16:26 | Outpatient (CLI) | payer MEDICARE, SELFPAY ==
[2019-06-16 22:42] VITALS: BMI 24.3
== END ==
PROVIDERS: PCP Internal Medicine; Visit Provider Family Medicine
DX: L89.614 Pressure ulcer of right heel, stage 4 (principal); L89.313 Pressure ulcer of right buttock, stage 3
CPT/HCPCS: 99213

== ENCOUNTER → 2019-09-28 14:59 | Outpatient (CLI) | payer MEDICARE, SELFPAY ==
[2019-06-16 22:42] VITALS: BMI 24.3
== END ==
PROVIDERS: PCP Internal Medicine; Visit Provider Family Medicine
DX: L89.614 Pressure ulcer of right heel, stage 4 (principal); L89.313 Pressure ulcer of right buttock, stage 3; R60.0 Localized edema; F01.50 Vascular dementia, unspecified severity, without behavioral disturbance, psychotic disturbance, mood disturbance, and anxiety
CPT/HCPCS: 11042

== ENCOUNTER → 2019-10-05 13:54 | Outpatient (CLI) | payer MEDICARE, SELFPAY ==
[2019-10-08 19:24] VITALS: BMI 22.8
== END ==
PROVIDERS: Family Provider Internal Medicine; PCP Internal Medicine; Visit Provider Family Medicine
DX: L89.614 Pressure ulcer of right heel, stage 4 (principal); I73.9 Peripheral vascular disease, unspecified; L89.313 Pressure ulcer of right buttock, stage 3
CPT/HCPCS: 11042; 99213

== ENCOUNTER 2019-10-08 13:08 | Inpatient (IN) | payer MEDICARE, SELFPAY ==
[2019-06-16 22:42] VITALS: BMI 24.3
[2019-10-08] VITALS (15 sets, daily range): BP systolic 82–121; BP diastolic 49–68; PULSE 67–78; RESP 13–18; TEMP 36.6–36.9; O2SAT 97–100; BMI 22.8
--- NOTE | 2019-10-08 13:12 | DI.RAD.S_ITS ---
PROCEDURE: XR CHEST 1V INDICATIONS: weakness, SOB, mental status change TECHNIQUE: One view of the chest was acquired. COMPARISON: [facility], CR, XR CHEST 1V, 06/20/2019, 11:31. FINDINGS: Surgical changes and devices: None. Lungs and pleura: Lungs are clear. No pleural effusions or pneumothorax. Mediastinum: Mediastinal contours appear normal. Heart size is normal. Bones and chest wall: No suspicious bony lesions. Overlying soft tissues appear unremarkable. IMPRESSION: Stable chest. No acute cardiopulmonary process is evident. Dictated by: Davion Chiu M.D. on 10/08/2019 at 12:49 Approved by: Davion Chiu M.D. on 10/08/2019 at 12:50
--- NOTE | 2019-10-08 13:16 | ED.AMS ---
HPI - Altered Mental Status General Chief Complaint: Altered Mental Status Stated Complaint: Mental status change Time Seen by Provider: 10/08/19 13:11 Source: EMS Mode of arrival: EMS Limitations: altered mental status History of Present Illness HPI narrative: 79-year-old male nonsmoker with extensive medical history including hypokalemia, cellulitis of his foot, acute metabolic encephalopathy, dehydration, frequent visits for altered mental status presents by EMS for evaluation of mental status over the course of the afternoon. He was fine until taking his medications this morning and nursing states that he became groggy and obtain ended in the aftermath. He has got no new medications on board and has had no recent injuries or falls. He has had no fever or chills and per staff no perceived difficulty with breathing, cough, complaints of abdominal pain or change in urination Related Data Home Medications Medication Instructions Recorded Confirmed aspirin 81 mg PO DAILY 12/15/18 06/20/19 cholecalciferol (vitamin D3) 1,000 unit PO DAILY 12/15/18 06/20/19 [Vitamin D3] cyanocobalamin (vitamin B-12) 500 mcg PO DAILY 12/15/18 06/20/19 [Vitamin B-12] acetaminophen [Tylenol Arthritis 650 mg PO TID 06/20/19 06/20/19 Pain] ascorbic acid (vitamin C) 500 mg PO DAILY 06/20/19 06/20/19 bisacodyl 5 - 10 mg PO PRN PRN 06/20/19 06/20/19 bisacodyl 10 mg SC PRN PRN 06/20/19 06/20/19 doxycycline hyclate 100 mg PO [id number] 06/20/19 06/20/19 furosemide 40 mg PO DAILY 06/20/19 06/20/19 magnesium hydroxide [Milk of 30 ml PO PRN PRN 06/20/19 06/20/19 Magnesia] sodium phosphates [Fleet Enema] 1 ea SC PRN PRN 06/20/19 06/20/19 Previous Rx's Medication Instructions Recorded tamsulosin [Flomax] 0.4 mg PO DAILY #30 cap 01/26/19 quetiapine [Seroquel] 12.5 mg PO BID #30 tab 06/19/19 Allergies Allergy/AdvReac Type Severity Reaction Status Date / Time hydromorphone [From Dilaudid] Allergy Verified 06/16/19 18:02 Review of Systems Review of Systems Narrative: Patient's is very hesitant in slow to respond to questions about review of systems, these findings are per the nursing staff ROS Unobtainable: Unobtainable due to medical condition Constitutional Constitutional: Denies chills, Reports daytime sleepiness, Denies fatigue, Denies fever(s), Denies frequent falls, Reports lethargy and Denies weakness Eyes Eyes: Denies change in vision, Denies eye discharge, Denies irritation and Denies loss of vision ENT Ears, Nose, Mouth, and Throat: Denies change in voice, Denies dizziness, Denies neck pain, Denies sore throat and Denies throat swelling Cardiovascular Cardiovascular: Denies chest pain, Denies irregular heart rhythm, Denies lightheadedness, Denies palpitations, Denies dyspnea, Denies dyspnea on exertion and Denies orthopnea Respiratory Respiratory: Denies cough, Denies dyspnea, Denies dyspnea on exertion and Denies wheezing Gastrointestinal Gastrointestinal: Denies abdominal pain, Denies change in bowel habits, Denies diarrhea, Denies nausea and Denies vomiting Genitourinary Genitourinary: Denies hematuria, Denies flank pain, Denies urinary incontinence and Denies urinary urgency Musculoskeletal Musculoskeletal: Denies back pain, Denies muscle weakness, Denies neck pain, Denies numbness and Denies tingling Integumentary/Breasts Skin/Breast: Denies pruritus, Denies erythema, Denies rash and Denies wounds Neurologic Neurologic: Denies behavioral changes, Denies confusion, Denies dizziness, Denies frequent falls, Denies loss of vision, Denies numbness, Denies tingling and Denies weakness Psychiatric Psychiatric: Denies anxiety, Denies behavioral changes, Denies confusion, Denies depression, Denies homicidal ideation and Denies suicidal ideation Endocrine Endocrine: Denies fatigue, Denies flushing and Denies palpitations Hematologic/Lymphatic Hematologic/Lymphatic: Denies easy bruising Allergic/Immunologic Allergic/Immunologic: Denies urticaria, Denies throat swelling and Denies wheezing Patient History Medical History Candidiasis of scrotum (Chronic) Cellulitis and abscess of foot (Acute) History of prostate cancer (Chronic) HTN (hypertension) (Chronic) Hypokalemia (Acute) Incontinence (Chronic) MRSA cellulitis of right foot (Acute) Stage III pressure ulcer of heel (Acute) Surgical History History of prostatectomy (Resolved) History of squamous cell carcinoma excision (Resolved) Family History Other Family history non-contributory Social History household members: spouse and other Smoking Status: Never smoker alcohol intake: current alcohol intake frequency: a few times a week Substance Use Type: does not use Exam Narrative Exam Narrative: GENERAL: [] 79 year old patient appears stated age. Well-nourished, well-developed patient, in mild distress. Sleepy but arousable HEAD: Atraumatic. Normocephalic. EYES: Pupils equal round and reactive. Extraocular motions intact. No scleral icterus. No injection or drainage. ENT: Nose without bleeding, purulent drainage. Throat without erythema, tonsillar hypertrophy or exudate. Airway patent. NECK: Trachea midline. Non tender CARDIOVASCULAR: Regular rate and rhythm without murmurs, gallops, or rubs. RESPIRATORY: Clear to auscultation. Breath sounds equal bilaterally. No wheezes, rales, or rhonchi. GASTROINTESTINAL: Abdomen soft, non-tender, nondistended. EXTREMITIES: No edema or joint tenderness. BACK: Nontender without deformity or crepitance. No flank tenderness. NEURO: AOx3. SKIN: No rash or erythema of visible areas Initial Vital Signs Initial Vital Signs: Vital Signs Temperature 98.4 F 10/08/19 13:15 Pulse Rate 75 10/08/19 13:15 Respiratory Rate 14 10/08/19 13:15 Blood Pressure 89/51 L 10/08/19 13:15 Pulse Oximetry 97 10/08/19 13:15 Scores GCS Mildred coma scale eye opening: To pressure Naylor coma scale verbal response: Confused Mildred coma scale motor response: Normal flexion Naylor coma scale total score: 10 Course Course Course Narrative: patient did have morning meds including Seroquel and was alert at 1030, but did not take any other sedating drugs. His seroquel was started a week ago, but he has not ever become this sedated. Additionally, it is unclear if his leg is better or worse than normal. He does see wound care weekly for dressing changes Orders Ordered: ED Orders 10/08/19 13:12 XR chest 1V Stat 10/08/19 14:00 Blood Culture Stat 10/08/19 14:03 Acetaminophen Stat Ammonia (NH3) Stat Complete Blood Count AUTO DIFF Stat Comprehensive Metabolic Panel Stat Ethanol (ETOH) Stat Lactate (Lactic Acid) Stat Partial Thromboplastin Time Stat Prolactin Stat Prothrombin Time INR Stat Salicylate Stat Thyroid Stimulating Hormone Stat Troponin I Stat 10/08/19 15:30 CT head/brain wo con Stat 10/08/19 16:24 US periph venous low extrem rt Stat 10/08/19 17:30 Urine Culture Stat Urine Drug Screen, Rapid Stat Sodium Chloride (Normal Saline 0.9%) 1,000 mls @ 150 mls/hr IV CONT MELBA Last Infusion: 10/08/19 16:14 Dose: 0 mls/hr Documented by: REUBENSENFrancisco J Infusion: 10/08/19 14:35 Dose: 999 mls/hr Documented by: Admin: 10/08/19 14:32 Dose: 150 mls/hr Documented by: STANLEY Levofloxacin (Levaquin) 500 mg in 100 mls @ 100 mls/hr IV NOW ONE Stop: 10/08/19 19:07 Discontinued Medications Sodium Chloride (Normal Saline 0.9%) 1,000 mls @ 1,000 mls/hr IV BOLUS ONE Stop: 10/08/19 14:27 Last Infusion: 10/08/19 14:32 Dose: 0 mls/hr Documented by: Admin: 10/08/19 13:31 Dose: 1,000 mls/hr Documented by: STANLEY Vital Signs Vital signs: Vital Signs - 8 hr 10/08/19 13:15 10/08/19 13:30 10/08/19 14:00 Temperature 98.4 F Pulse Rate 75 72 70 Respiratory Rate 14 13 13 Blood Pressure 89/51 L Blood Pressure [Left Arm] 91/56 L 90/51 L Pulse Oximetry 97 98 98 10/08/19 14:30 10/08/19 14:45 10/08/19 15:00 Temperature Pulse Rate 71 68 71 Respiratory Rate 14 14 14 Blood Pressure Blood Pressure [Left Arm] 82/53 L 88/52 L 94/49 L Pulse Oximetry 98 98 98 10/08/19 16:08 10/08/19 16:45 10/08/19 18:13 Temperature Pulse Rate 67 68 74 Respiratory Rate 14 14 17 Blood Pressure Blood Pressure [Left Arm] 90/56 L 98/59 L 90/62 Pulse Oximetry 99 99 100 MDM - Altered Mental Status Lab Data Result diagrams: 10/08/19 14:03 10/08/19 14:03 Labs: Lab Results 10/08/19 10/08/19 10/08/19 Range/Units 14:03 14:03 14:03 WBC 8.5 (4.5-11.0) X10^3/uL RBC 4.13 L (4.5-5.9) X10^6/uL Hgb 12.2 L (13.5-17.5) g/dL Hct 36.3 L (41-53) % MCV 88.0 (80-100) fL MCH 29.5 (26-34) PG MCHC 33.6 (30-36) % RDW 14.6 (11.6-14.8) % Plt Count 149 L (150-400) X10^3/uL Neut % (Auto) 82.7 H (50-75) % Lymph % (Auto) 9.2 L (25-40) % [place] % (Auto) 7.6 (3-14) % Eos % (Auto) 0.3 L (2-4) % Baso % (Auto) 0.2 (0-2) % Neut # (Auto) 7000 (4717-8585) /uL Lymph # (Auto) 800 L (4723-5763) /uL [place] # (Auto) 600 (0-900) /uL Eos # (Auto) 0 (0-450) /uL Baso # (Auto) 0 (0-100) /uL PT 14.1 H (10.1-12.7) SECONDS INR 1.2 (0.9-1.3) APTT 32 D (26.4-36.2) SECONDS Sodium 141 (137-145) mmol/L Potassium 3.3 L (3.4-5.1) mmol/L Chloride 104 (98-107) mmol/L Carbon Dioxide 28 (22-32) mmol/L BUN 23 H (9-20) mg/dL Creatinine 0.90 (0.66-1.25) mg/dL Estimated GFR > 60.0 (>60) mL/min BUN/Creatinine Ratio 25.6 H (6-22) Glucose 92 (80-110) mg/dL Lactate (0.7-2.1) mmol/L Calcium 8.3 L (8.4-10.2) mg/dL Total Bilirubin 0.9 (0.2-1.3) mg/dL AST 26 (17-59) IU/L ALT 12 (<50) IU/L Alkaline Phosphatase 97 (38-126) U/L Ammonia (9-30) umol/L Troponin I < 0.012 (0.01-0.034) ng/mL Total Protein 6.4 (6.3-8.2) g/dL Albumin 3.4 L (3.5-5.0) g/dL Globulin 3.0 (1.7-4.1) g/dL Albumin/Globulin Ratio 1.1 (1.0-2.8) TSH (0.47-4.68) uIU/mL Prolactin 20.7 H (3.7-17.9) ng/mL Salicylates < 1.0 (<20) mg/dL U Morph 300 ng/mL cutoff (Negative) Ur Oxycodone Screen (Negative) Urine Methadone Screen (Negative) Acetaminophen < 10 L (10-30) ug/mL Ur Barbiturates Screen (Negative) U Tricyclic Antidepress (Negative) Ur Phencyclidine Scrn (Negative) Ur Amphetamines Screen (Negative) U Methamphetamines Scrn (Negative) Ur MDMA Scrn (Ecstasy) (Negative) U Benzodiazepines Scrn (Negative) Urine Cocaine Screen (Negative) U Marijuana (THC) Screen (Negative) Ethyl Alcohol < 10 ( - 10) mg/dL 10/08/19 10/08/19 10/08/19 Range/Units 14:03 14:03 14:03 WBC (4.5-11.0) X10^3/uL RBC (4.5-5.9) X10^6/uL Hgb (13.5-17.5) g/dL Hct (41-53) % MCV (80-100) fL MCH (26-34) PG MCHC (30-36) % RDW (11.6-14.8) % Plt Count (150-400) X10^3/uL Neut % (Auto) (50-75) % Lymph % (Auto) (25-40) % [place] % (Auto) (3-14) % Eos % (Auto) (2-4) % Baso % (Auto) (0-2) % Neut # (Auto) (6684-4365) /uL Lymph # (Auto) (3469-2912) /uL [place] # (Auto) (0-900) /uL Eos # (Auto) (0-450) /uL Baso # (Auto) (0-100) /uL PT (10.1-12.7) SECONDS INR (0.9-1.3) APTT (26.4-36.2) SECONDS Sodium (137-145) mmol/L Potassium (3.4-5.1) mmol/L Chloride (98-107) mmol/L Carbon Dioxide (22-32) mmol/L BUN (9-20) mg/dL Creatinine (0.66-1.25) mg/dL Estimated GFR (>60) mL/min BUN/Creatinine Ratio (6-22) Glucose (80-110) mg/dL Lactate 1.0 (0.7-2.1) mmol/L Calcium (8.4-10.2) mg/dL Total Bilirubin (0.2-1.3) mg/dL AST (17-59) IU/L ALT (<50) IU/L Alkaline Phosphatase (38-126) U/L Ammonia < 9.0 L (9-30) umol/L Troponin I (0.01-0.034) ng/mL Total Protein (6.3-8.2) g/dL Albumin (3.5-5.0) g/dL Globulin (1.7-4.1) g/dL Albumin/Globulin Ratio (1.0-2.8) TSH 0.48 (0.47-4.68) uIU/mL Prolactin (3.7-17.9) ng/mL Salicylates (<20) mg/dL U Morph 300 ng/mL cutoff (Negative) Ur Oxycodone Screen (Negative) Urine Methadone Screen (Negative) Acetaminophen (10-30) ug/mL Ur Barbiturates Screen (Negative) U Tricyclic Antidepress (Negative) Ur Phencyclidine Scrn (Negative) Ur Amphetamines Screen (Negative) U Methamphetamines Scrn (Negative) Ur MDMA Scrn (Ecstasy) (Negative) U Benzodiazepines Scrn (Negative) Urine Cocaine Screen (Negative) U Marijuana (THC) Screen (Negative) Ethyl Alcohol ( - 10) mg/dL 10/08/19 Range/Units 17:30 WBC (4.5-11.0) X10^3/uL RBC (4.5-5.9) X10^6/uL Hgb (13.5-17.5) g/dL Hct (41-53) % MCV (80-100) fL MCH (26-34) PG MCHC (30-36) % RDW (11.6-14.8) % Plt Count (150-400) X10^3/uL Neut % (Auto) (50-75) % Lymph % (Auto) (25-40) % [place] % (Auto) (3-14) % Eos % (Auto) (2-4) % Baso % (Auto) (0-2) % Neut # (Auto) (7209-4221) /uL Lymph # (Auto) (1274-3959) /uL [place] # (Auto) (0-900) /uL Eos # (Auto) (0-450) /uL Baso # (Auto) (0-100) /uL PT (10.1-12.7) SECONDS INR (0.9-1.3) APTT (26.4-36.2) SECONDS Sodium (137-145) mmol/L Potassium (3.4-5.1) mmol/L Chloride (98-107) mmol/L Carbon Dioxide (22-32) mmol/L BUN (9-20) mg/dL Creatinine (0.66-1.25) mg/dL Estimated GFR (>60) mL/min BUN/Creatinine Ratio (6-22) Glucose (80-110) mg/dL Lactate (0.7-2.1) mmol/L Calcium (8.4-10.2) mg/dL Total Bilirubin (0.2-1.3) mg/dL AST (17-59) IU/L ALT (<50) IU/L Alkaline Phosphatase (38-126) U/L Ammonia (9-30) umol/L Troponin I (0.01-0.034) ng/mL Total Protein (6.3-8.2) g/dL Albumin (3.5-5.0) g/dL Globulin (1.7-4.1) g/dL Albumin/Globulin Ratio (1.0-2.8) TSH (0.47-4.68) uIU/mL Prolactin (3.7-17.9) ng/mL Salicylates (<20) mg/dL U Morph 300 ng/mL cutoff Negative (Negative) Ur Oxycodone Screen Negative (Negative) Urine Methadone Screen Negative (Negative) Acetaminophen (10-30) ug/mL Ur Barbiturates Screen Negative (Negative) U Tricyclic Antidepress Negative (Negative) Ur Phencyclidine Scrn Negative (Negative) Ur Amphetamines Screen Negative (Negative) U Methamphetamines Scrn Negative (Negative) Ur MDMA Scrn (Ecstasy) Negative (Negative) U Benzodiazepines Scrn Negative (Negative) Urine Cocaine Screen Negative (Negative) U Marijuana (THC) Screen Negative (Negative) Ethyl Alcohol ( - 10) mg/dL Urine Dip Bedside Urine Glucose Negative Bedside Urine Bilirubin - Negative Bedside Urine Ketone - Negative Urine Specific [place] 1.015 Bedside Urine Occult Blood +/- Bedside Urine pH 6.0 Bedside Urine Protein - Negative Bedside Urine Urobilinogen - Negative Bedside Urine Nitrite - Negative Bedside Urine Leukocytes ++ 125 Esterase MDM Narrative Medical decision making narrative: 79-year-old male presents from shelter and obtunded state over the course of the afternoon in the absence of any trauma. He has no new medications. He has UTI and chronic cellulitis and would of RLE. Head CT is unremarkable. He has been seen under similar circumstances in the past. He has no fever, pain, elevated white count or meningeal signs, no indication for LP at this time. Will treat UTI based on prior sensitivities and admit for ongoing evaluation and stabilization Discharge Plan Departure Patient Disposition: Admitted as Observation Clinical Impression: Acute metabolic encephalopathy, Acute UTI Admit Date/Time: 10/08/19 18:31 Admit Provider: Tesha Clancy
[2019-10-08] MEDS: SODIUM CHLORIDE 0.9% 1,000 ML 1000 ML IV (13:31)
[2019-10-08 14:20] LABS: Add Manual Diff / Slide Review NO; Basophils Absolute Auto 0 /uL (0-100); Basophils Percent Auto 0.2 % (0-2); Eosinophils Absolute Auto 0 /uL (0-450); Eosinophils Percent Auto 0.3 % (2-4); Hematocrit 36.3 % (41-53); Hemoglobin 12.2 g/dL (13.5-17.5); Lymphocytes Absolute Auto 800 /uL (1100-4500); Lymphocytes Percent Auto 9.2 % (25-40); Mean Corpuscular HGB Conc 33.6 % (30-36); Mean Corpuscular Hemoglobin 29.5 PG (26-34); Monocytes Absolute Auto 600 /uL (0-900); Monocytes Percent Auto 7.6 % (3-14); Neutrophils Absolute Auto 7000 /uL (1500-7000); Neutrophils Percent Auto 82.7 % (50-75); Platelet Count 149 X10^3/uL (150-400); Red Blood Cell Count 4.13 X10^6/uL (4.5-5.9); Red Cell Distribution Width 14.6 % (11.6-14.8); White Blood Cell Count 8.5 X10^3/uL (4.5-11.0)
[2019-10-08 14:31] LABS: INR 1.2 (0.9-1.3); Prothrombin Time 14.1 SECONDS (10.1-12.7)
[2019-10-08] MEDS: SODIUM CHLORIDE 0.9% 1,000 ML 150 ML IV (14:32)
[2019-10-08 14:34] LABS: PTT Partial Thromboplastin Tim 32 SECONDS (26.4-36.2)
[2019-10-08 14:43] LABS: Acetaminophen < 10 ug/mL (10-30); Alanine Aminotransferase 12 IU/L (<50); Albumin 3.4 g/dL (3.5-5.0); Albumin Globulin Ratio 1.1 (1.0-2.8); Alkaline Phosphatase 97 U/L (38-126); Aspartate Aminotransferase 26 IU/L (17-59); BUN Creatinine Ratio 25.6 (6-22); Bilirubin Total 0.9 mg/dL (0.2-1.3); Blood Urea Nitrogen 23 mg/dL (9-20); Calcium 8.3 mg/dL (8.4-10.2); Carbon Dioxide 28 mmol/L (22-32); Chloride 104 mmol/L (98-107); Estimated Glomerular Filt Rate > 60.0 mL/min (>60); Ethanol (ETOH) < 10 mg/dL; Glucose 92 mg/dL (80-110); HEMOLYSIS < 15 (0-50); Potassium 3.3 mmol/L (3.4-5.1); Salicylate < 1.0 mg/dL (<20); Sodium 141 mmol/L (137-145); Total Protein 6.4 g/dL (6.3-8.2)
[2019-10-08 14:44] LABS: Ammonia (NH3) < 9.0 umol/L (9-30)
[2019-10-08 14:54] LABS: Troponin I < 0.012 ng/mL (0.01-0.034)
[2019-10-08 14:59] LABS: Prolactin 20.7 ng/mL (3.7-17.9)
[2019-10-08 15:13] LABS: Thyroid Stimulating Hormone 0.48 uIU/mL (0.47-4.68)
--- NOTE | 2019-10-08 15:30 | DI.CT.S_ITS ---
PROCEDURE: CT HEAD/BRAIN WO CON INDICATIONS: mental status change TECHNIQUE: Noncontrast 4.5 mm thick angled axial sections acquired from the foramen magnum to the vertex, with coronal and sagittal reformats. For radiation dose reduction, the following was used: automated exposure control, adjustment of mA and/or kV according to patient size. COMPARISON: [facility], CT, CT HEAD/BRAIN WO CON, 08/18/2019, 3:06. [facility], CT, CT HEAD/BRAIN WO CON, 01/22/2019, 19:16. FINDINGS: Image quality: Excellent. CSF spaces: Basal cisterns are patent. No extra-axial fluid collections. Ventricles are normal in size and shape. Brain: No midline shift. No intracranial masses or hemorrhage. Tovar-white matter interface is normal. Skull and face: Calvarium and visualized facial bones are intact, without suspicious lesions. Sinuses: Visualized sinuses and mastoids are clear. IMPRESSION: Negative head CT. No acute intracranial hemorrhage. Dictated by: Davion Chiu M.D. on 10/08/2019 at 15:06 Approved by: Davion Chiu M.D. on 10/08/2019 at 15:07
--- NOTE | 2019-10-08 16:07 | PC.NURSE ---
saturated with urine. with 2 person assist for incontinent care. noted right lower leg edema, redness, right foot with drsg and soft boot left lower leg with redness ankle down.
--- NOTE | 2019-10-08 16:09 | PC.NURSE ---
pt eyes bilateral closed, occasional pts mumbles, when asked for year, states, 2007/
--- NOTE | 2019-10-08 16:24 | DI.US.S_ITS ---
PROCEDURE: [facility] VENOUS LOW EXTREM RT INDICATIONS: REDNESS, SWELLING, PAIN TECHNIQUE: Real-time imaging, as well as color and pulse Doppler interrogation, were performed of the lower extremity deep veins from the inguinal ligament to the popliteal fossa. COMPARISON: [facility], [facility] VENOUS LOW EXTREM RT, 01/18/2019, 8:17. FINDINGS: The common femoral, femoral and popliteal veins are normally compressible, and free of intraluminal thrombus. Color and pulse Doppler demonstrate normal phasic intraluminal flow. There is normal augmentation response to distal compression maneuver. IMPRESSION: No evidence of deep vein thrombosis of the right lower extremity. Dictated by: Davion Chiu M.D. on 10/08/2019 at 16:14 Approved by: Davion Chiu M.D. on 10/08/2019 at 16:14
[2019-10-08 17:42] LABS: UR Morphine/Opiate cutoff 300 Negative (Negative); Ur Creatinine Normal (Normal); Ur Specific Gravity Normal (Normal); Urine Amphetamines Negative (Negative); Urine Barbiturates Negative (Negative); Urine Benzodiazepines Negative (Negative); Urine Cocaine Negative (Negative); Urine MDMA Negative (Negative); Urine Methadone Negative (Negative); Urine Methamphetamines Negative (Negative); Urine Oxycodone Negative (Negative); Urine Phencyclidine Negative (Negative); Urine Tetrahydrocannabinol Negative (Negative); Urine Tricyclic Antidepressant Negative (Negative); Urine pH Normal (Normal)
[2019-10-08] MEDS: levoFLOXacin 500 MG/100 ML PIGGYBACK 100 MG IV (18:40)
--- NOTE | 2019-10-08 20:56 | PC.ADMIT ---
[address] 27[address] Admission Note: The patient,Jimi Montes,79 y/o, was given written information regarding hospital policies, unit procedures and contact persons. Patient's smoking status: Never smoker. Vital Signs - 8 hr 10/08/19 13:15 10/08/19 13:30 10/08/19 14:00 Temperature 98.4 F Pulse Rate 75 72 70 Respiratory Rate 14 13 13 Blood Pressure 89/51 L Blood Pressure [Left Arm] 91/56 L 90/51 L Pulse Oximetry 97 98 98 10/08/19 14:30 10/08/19 14:45 10/08/19 15:00 Temperature Pulse Rate 71 68 71 Respiratory Rate 14 14 14 Blood Pressure Blood Pressure [Left Arm] 82/53 L 88/52 L 94/49 L Pulse Oximetry 98 98 98 10/08/19 15:45 10/08/19 16:08 10/08/19 16:15 Temperature Pulse Rate 71 67 67 Respiratory Rate 14 14 13 Blood Pressure Blood Pressure [Left Arm] 101/59 L 90/56 L 93/55 L Pulse Oximetry 98 99 99 10/08/19 16:45 10/08/19 17:00 10/08/19 17:30 Temperature Pulse Rate 68 70 72 Respiratory Rate 14 16 13 Blood Pressure Blood Pressure [Left Arm] 98/59 L 94/57 L 101/58 L Pulse Oximetry 99 98 99 10/08/19 18:13 10/08/19 18:30 10/08/19 19:15 Temperature 97.9 F Pulse Rate 74 76 78 Respiratory Rate 17 14 18 Blood Pressure 121/64 Blood Pressure [Left Arm] 90/62 108/68 Pulse Oximetry 100 100 100 Patient admitted to room 218 from ED, transferred from [facility] to bed via slider board. Oriented patient to room, environment, and plan of care. High fall risk precautions initiated. Call light within reach.
--- NOTE | 2019-10-08 20:58 | PC.NURSE ---
Jayleen shift note: Patient noted with stage 3 pressure injury (present on admission) to right ischial/buttock region, dressed with Allevyn dressing. 1 cm diameter round pressure injury, with warm pink well marcated boarders, scant odorous cream colored drainage. Please see photo for more details. Generalized weakness noted, turning frequently in bed with extra caution to bony prominences. Patient is able to help shift weight in bed. Calm, pleasant and cooperative.
--- NOTE | 2019-10-08 21:10 | P.HP_ITS ---
History of Present Illness History of Present Illness Date Patient Seen: 10/08/19 Time Patient Seen: 21:10 Chief complaint: Mental status change Narrative: The patient is an 79-year-old male, a resident of [facility], w/ PMHx of HTN, [id number] dementia w/ behavioral disturbance / cognitive impairment, BPH, prostate cancer (s/p prostatectomy), SCC (s/p resection), h/o right inguinal lymphnode resection, chronic RLE lymphedema, h/o chemotherapy, chemotherapy induced neuropathy, bowel and bladder incontinence, chronic constipation, urinary retention, recurrent UTIs, right heel pressure ulcer, and sacral pressure ulcer. Patient is known to have multiple hospitalizations for acute encephalopathy, frequently in the setting of a urinary tract infection. Patient presented to the ED via EMS on 10/08 at 1305. According to the nursing facility patient had decreased mental status, but was arousable to voice.Symptoms were noted after patient has taken his morning medication. Pt's VS on arrival to the ED... T 98.4F BP 89/51 mmHg HR 75 RR 14 SpO2 97% on RA. GCS 10. Hypotension was treated with a total of 2 L of IV fluid with mild improvement in BP and significant improvement in patient's mental state, which essentially returned to his baseline. No known recent illness. Patient has not had fever chills. He is not complaining of acute distress, chest pain, palpitations, dyspnea, abdominal pain, or GI distress. No symptoms of URI evident. Patient is known to have BPH with bowel bladder incontinence. He is known to struggle with constipation. Also, known to have recurrent hospitalizations for UTI, last in January of 2019. He also has chronic ulcer on his right lower extremity and buttock. There has not been a change in patient's medications. ED Presentation & Work-Up VS, 10/08 1315. T 98.4 BP 89/51 mmHg HR 75 RR 14 SpO2 97% on RA Labs, 10/08 1403 WBC 8.5 Lactate 1.0 Hgb 12.2 Hct 36.3 Plt 149 PT 14.1 INR 1.2 aPTT 32 Na 141 K 3.3 Cl 104 Ca 8.3 Alb 3.4 Glu 92 CO2 28 BUN 23 Cr 0.9 BUN:Cr 25.6 AST 26 ALT 12 Alk Phos 97 T.Bili 0.9 Ammonia < 9 Prolactin 20.7 Trop < 0.012 TSH 0.48 UDS NEGATIVE. Acetaminophen < 10. Salicylate < 1. Ethyl Alcohol < 10 Urine Dipstick negative for glucose, bilirubin, ketone, protein, urobilinogen, nitrite positive for LE ++ 125 CT HEAD negative for acute findings CXR negative for acute cardiopulmonary findings U/S LLE negative for DVT In ED was treated with 2 L of normal saline and started on 500 mg IV levof loxacin. Patient History Medical History Candidiasis of scrotum (Chronic) Cellulitis and abscess of foot (Acute) History of prostate cancer (Chronic) HTN (hypertension) (Chronic) Hypokalemia (Acute) Incontinence (Chronic) MRSA cellulitis of right foot (Acute) Stage III pressure ulcer of heel (Acute) Surgical History History of prostatectomy (Resolved) History of squamous cell carcinoma excision (Resolved) Family & Social History Family History Other Family history non-contributory Social History: household members spouse,other Tobacco & Substance use: Smoking Status Never smoker alcohol intake current alcohol intake frequency a few times a week Substance Use Type does not use Meds Home Medications and Allergies Home Medications Medication Instructions Recorded Confirmed Type aspirin 81 mg PO DAILY 12/15/18 10/08/19 History cholecalciferol (vitamin D3) 1,000 unit PO DAILY 12/15/18 10/08/19 History [Vitamin D3] cyanocobalamin (vitamin B-12) 500 mcg PO DAILY 12/15/18 10/08/19 History [Vitamin B-12] tamsulosin [Flomax] 0.4 mg PO DAILY #30 cap 01/26/19 10/08/19 Rx quetiapine [Seroquel] 12.5 mg PO BID #30 tab 06/19/19 10/08/19 Rx acetaminophen [Tylenol Arthritis 650 mg PO TID 06/20/19 10/08/19 History Pain] ascorbic acid (vitamin C) 500 mg PO DAILY 06/20/19 10/08/19 History bisacodyl 5 - 10 mg PO PRN PRN 06/20/19 10/08/19 History bisacodyl 10 mg SD PRN PRN 06/20/19 10/08/19 History doxycycline hyclate 100 mg PO [id number] 06/20/19 10/08/19 History furosemide 40 mg PO DAILY 06/20/19 10/08/19 History magnesium hydroxide [Milk of 30 ml PO PRN PRN 06/20/19 10/08/19 History Magnesia] sodium phosphates [Fleet Enema] 1 ea SD PRN PRN 06/20/19 10/08/19 History Allergies Allergy/AdvReac Type Severity Reaction Status Date / Time hydromorphone [From Dilaudid] Allergy Verified 06/16/19 18:02 Review of Systems Review of Systems ROS Unobtainable: All systems reviewed & are unremarkable except as noted in HPI and below Exam Vital Signs (past 8 hours): - 10/08/19 13:15 10/08/19 13:30 10/08/19 14:00 Temperature 98.4 F Pulse Rate 75 72 70 Respiratory Rate 14 13 13 Blood Pressure 89/51 L Blood Pressure [Left Arm] 91/56 L 90/51 L Pulse Oximetry 97 98 98 10/08/19 14:30 10/08/19 14:45 10/08/19 15:00 Temperature Pulse Rate 71 68 71 Respiratory Rate 14 14 14 Blood Pressure Blood Pressure [Left Arm] 82/53 L 88/52 L 94/49 L Pulse Oximetry 98 98 98 10/08/19 15:45 10/08/19 16:08 10/08/19 16:15 Temperature Pulse Rate 71 67 67 Respiratory Rate 14 14 13 Blood Pressure Blood Pressure [Left Arm] 101/59 L 90/56 L 93/55 L Pulse Oximetry 98 99 99 10/08/19 16:45 10/08/19 17:00 10/08/19 17:30 Temperature Pulse Rate 68 70 72 Respiratory Rate 14 16 13 Blood Pressure Blood Pressure [Left Arm] 98/59 L 94/57 L 101/58 L Pulse Oximetry 99 98 99 10/08/19 18:13 10/08/19 18:30 10/08/19 19:15 Temperature 97.9 F Pulse Rate 74 76 78 Respiratory Rate 17 14 18 Blood Pressure 121/64 Blood Pressure [Left Arm] 90/62 108/68 Pulse Oximetry 100 100 100 Oxygen Delivery Method Room Air Oxygen Flow Rate 0 Narrative Exam Narrative: Constitutional: Frail elderly man, appears stated age, in no acute distress, BMI 22.9 Neurologic: Awake and alert. Forgetful. Oriented to person, year (2018), place ([facility]), and president (Estef[place]) Incorrectly stated season (spring), not aware if it is daytime or nightime, month (August) Recalls 1 of 3 object, unable to do serial 7 subtractions Able to follow simple commands and makes needs known No tremor No facial asymmetry or droop Weakness in RUE and RLE when compared to LUE and LLE (patient states he has had a stroke in the past, but no such data in available records) Speech is not slurred, however very soft which makes him somewhat difficult to understand Head: NC, AT Eyes: Pupils round and reactive, EOMI, no scleral icterus Ears: external ears normal, very hard of hearing Nose: external nose normal, no rhinorrhea or epistaxis Throat: dry MM, oropharynx w/o exudate Neck: no masses, no lymphadenopathy no JVD Chest / Respiratory: unlabored respiratory effort, diminished, no cough evident Heart / CV: S1S2, no murmur Abdomen / GI: firm, NT, ND, hypoactive BS, no organomegaly : no suprapubic tenderness, brief present, no hernandez catheter Peripheral / Vascular: LLE no edema, palpable pedal pulse (weak), extremity is cool to touch, degree of arterial insufficiency, extremity pale / mottled in non- dependent position below knee extending to toes no evidence of wounds on heel or toes RLE entire RLE is edematous, erythema starting below the knee w/ calor edema and erythema does not extend post tibially or involve toes 4th toe is black Patient has a compression wrap in place. There is a known heel wound (not examined at time of initial evaluation) Left heel wound, 15-17 cm, stage II-III, macerated, mild drainage. Musc: impaired ROM and strength diminished RUE ROM and strength, able to lift RUE not more than 90 degrees, drift present impaired strength diminished RLE ROM and strength, unable to lift RLE off bed, able to wiggle toes, sensation diminished, LUE ROM intact. LLE ROM diminished, unable to lift extremity more than 45?, no drift LLE strength also diminished, but greater than RLE Skin: no ecchymosis, pale in appearance. State 2 pressure ulcer buttock right (area of ischial tuberosity), skin breakdown and sloughing evident (pic was taken) Objective Labs Result Diagrams: 10/08/19 14:03 10/08/19 14:03 Labs: Laboratory Results - last 24 hr 10/08/19 10/08/19 10/08/19 14:03 14:03 14:03 WBC 8.5 RBC 4.13 L Hgb 12.2 L Hct 36.3 L MCV 88.0 MCH 29.5 MCHC 33.6 RDW 14.6 Plt Count 149 L Neut % (Auto) 82.7 H Lymph % (Auto) 9.2 L Petroleum % (Auto) 7.6 Eos % (Auto) 0.3 L Baso % (Auto) 0.2 Neut # (Auto) 7000 Lymph # (Auto) 800 L Petroleum # (Auto) 600 Eos # (Auto) 0 Baso # (Auto) 0 PT 14.1 H INR 1.2 APTT 32 D Sodium 141 Potassium 3.3 L Chloride 104 Carbon Dioxide 28 BUN 23 H Creatinine 0.90 Estimated GFR > 60.0 BUN/Creatinine Ratio 25.6 H Glucose 92 Lactate Calcium 8.3 L Total Bilirubin 0.9 AST 26 ALT 12 Alkaline Phosphatase 97 Ammonia Troponin I < 0.012 Total Protein 6.4 Albumin 3.4 L Globulin 3.0 Albumin/Globulin Ratio 1.1 TSH Prolactin 20.7 H Salicylates < 1.0 U Morph 300 ng/mL cutoff Ur Oxycodone Screen Urine Methadone Screen Acetaminophen < 10 L Ur Barbiturates Screen U Tricyclic Antidepress Ur Phencyclidine Scrn Ur Amphetamines Screen U Methamphetamines Scrn Ur MDMA Scrn (Ecstasy) U Benzodiazepines Scrn Urine Cocaine Screen U Marijuana (THC) Screen Ethyl Alcohol < 10 10/08/19 10/08/19 10/08/19 14:03 14:03 14:03 WBC RBC Hgb Hct MCV MCH MCHC RDW Plt Count Neut % (Auto) Lymph % (Auto) Petroleum % (Auto) Eos % (Auto) Baso % (Auto) Neut # (Auto) Lymph # (Auto) Petroleum # (Auto) Eos # (Auto) Baso # (Auto) PT INR APTT Sodium Potassium Chloride Carbon Dioxide BUN Creatinine Estimated GFR BUN/Creatinine Ratio Glucose Lactate 1.0 Calcium Total Bilirubin AST ALT Alkaline Phosphatase Ammonia < 9.0 L Troponin I Total Protein Albumin Globulin Albumin/Globulin Ratio TSH 0.48 Prolactin Salicylates U Morph 300 ng/mL cutoff Ur Oxycodone Screen Urine Methadone Screen Acetaminophen Ur Barbiturates Screen U Tricyclic Antidepress Ur Phencyclidine Scrn Ur Amphetamines Screen U Methamphetamines Scrn Ur MDMA Scrn (Ecstasy) U Benzodiazepines Scrn Urine Cocaine Screen U Marijuana (THC) Screen Ethyl Alcohol 10/08/19 17:30 WBC RBC Hgb Hct MCV MCH MCHC RDW Plt Count Neut % (Auto) Lymph % (Auto) Petroleum % (Auto) Eos % (Auto) Baso % (Auto) Neut # (Auto) Lymph # (Auto) Petroleum # (Auto) Eos # (Auto) Baso # (Auto) PT INR APTT Sodium Potassium Chloride Carbon Dioxide BUN Creatinine Estimated GFR BUN/Creatinine Ratio Glucose Lactate Calcium Total Bilirubin AST ALT Alkaline Phosphatase Ammonia Troponin I Total Protein Albumin Globulin Albumin/Globulin Ratio TSH Prolactin Salicylates U Morph 300 ng/mL cutoff Negative Ur Oxycodone Screen Negative Urine Methadone Screen Negative Acetaminophen Ur Barbiturates Screen Negative U Tricyclic Antidepress Negative Ur Phencyclidine Scrn Negative Ur Amphetamines Screen Negative U Methamphetamines Scrn Negative Ur MDMA Scrn (Ecstasy) Negative U Benzodiazepines Scrn Negative Urine Cocaine Screen Negative U Marijuana (THC) Screen Negative Ethyl Alcohol Assessment & Plan Assessment & Plan narrative: Patient is being admitted under observation status for acute metabolic encephalopathy and UTI Acute metabolic encephalopathy, present on admission, active - Now resolved, mentation at baseline. Suspected to be a complication of dehydration / hypotension VS. acute / recurring UTI - WBC, lactate, and ammonia level WNL. CRP and ESR moderately elevated. Only LE + on dipstick. - Improved w/ IVF - ABX (levofloxacin) was started for treatment of UTI, will discontinue at this time pending review of blood and urine cx - Neuro status checks Q4H - Blood and urine cx pending Hypotension, acute, present on admission, active -presented hypotensive, symptomatic for decreased/altered mental state, with rapid resolution post hydration - Suspected to be in the setting of dehydration vs acute infection - Hold diuretics and hydrate (see POC for dehydration) Dehydration, acute, present on admission, active - Suspected to be a cause of encephalopathy w/ associated hypotension - [employer] on furosemide 40 mg daily, hold at this time - Received 2L NS bolus in ED - Give 500 cc NS IVF bolus now d/t active hypotension, then continue w/ maintenance IVF w/ NS + 20 KCl at 80 ml/hr x1L, then re-evaluate - I/Os Q8H Cystitis, suspected, h/o recurrece, present on admission, active - Suspected. Known to have h/o recurrent UTIs, urinary retention, no h/o MDR, prior urine cx + Enterococcus faecalis (01/2019) Technically does not meet criteria for a UTI. Patient urine dipstick is only positive for leukocyte esterase (LE ++ 125). No fever/chills, leukocytosis, or elevated lactate. No suprapubic discomfort or flank pain. - Repeat UA complete w/ micro - Urine cx pending - In ED received levofloxacin 500 mg IV (first dose 10/08 1840), stop at this time. Hold further abx, pending urine cx results RLE lymphadenopathy, chronic, present on admission, active - Questionable RLE chronic lymphadenopathy vs RLE cellulitis. Hold off on empiric therapy. Will add CRP and ESR to labs drawn in ED, (reviewed 10/08 2357 CRP 3.5 and ESR 21, mild-moderately elevated) No need for abx at this time He is having erythema (not clear if chronic or acute), edema (non pitting and appears to be more consistent with lymphadenopathy), some tenderness (to palpat ion only) and calor. No drainage. No fever or chills, however presented w/ acute metabolic encephalopathy. No leukocytosis. Lactate WNL. Known to have had remote lymph node resection in right extremity, as well as wound cultures positive for Staph species / MRSA number of times in the past 6 months. - LLE U/S negative for DVT Arterial vs pressure ulcer stage II-III, subacute / slow healing, right lower extremity, present on admission, active - Prior h/o of positive wound culture for MRSA - Assess wound thrice weekly -W- - Change dressing thrice weekly M-W-F Worse extremity with chlorhexidine Apply hydrogel dressing (Allevyn Gentle Border) - Off load, place in Waffle boot (both lower extremities) Right buttock (ischial tuberosity) stage II pressure ulcer, subacute / slow healing, present on admission, active - Wound assessment daily - Wound care daily and prn w/ Hydrogel dressing (Allevyn gentle border) - Turn patient patient Q2H Hypokalemia, acute, present on admission, active - K 3.1 No EKG in ED. Asymptomatic - no palpitations, breathing difficulties, weakness (subjective in this patient) - Add Mg to labs drawn in ED (results reviewed, Mg 2.0) - K being repleted in IVF, receiving NS + 40 mEq K at 80 ml/hr x1 L, then to be re-evaluated - Will monitor patient closely - Will keep off telemetry at this time MRSA (per wound cultuer), per history in the past 6 months, active - Contact isolation precautions - Daily chlorhexadine baths would be desired if that is an option Hypertension, chronic, present on admission, active / controlled - Currently hypotensive, hold [employer] antihypertensives - Continue BP monitoring and trending Q4H Dementia with h/o behavioral disturbance, chronic, present on admission, stable - Forgetful, no evidence of behavioral disturbance at time of assessment - Resume seroquel 12.5 mg BID w/ hold parameters (ie hold if lethargic, somnolent or unresponsive) BPH, chronic, present on admission, stable / controlled - H/O prostate cancer s/p prostatectomy - Resume [employer] regimen of tamsulosin 0.4 mg daily. Normocytic anemia, chronic, present on admission, stable - HGB 12.2, continue monitor / trend with routine lab. No active s/s of bleed ing Thrombocytopenia, chronic, present on admission, stable - PLT 149, continue monitor / trend with routine lab. No active s/s of bleeding. - Started on lovenox prophylactic daily dose for VTE Full code. Patient has a POLST form. His proxy decision maker is Berna [place], spouse. Home medications reviewed and reconciled accordingly. VTE prophylaxis with SQ Lovenox. SCDs contraindicated d/t LLE cellulitis / current ulcer
[2019-10-08 23:14] LABS: C-Reactive Protein Quant 3.5 mg/dL (<1.0)
[2019-10-08 23:31] LABS: Erythrocyte Sedimentation Rate 21 MM/HR (0-15)
[2019-10-09] VITALS (8 sets, daily range): BP systolic 84–147; BP diastolic 44–82; PULSE 66–90; RESP 14–18; TEMP 36.2–37.1; O2SAT 97–100
--- NOTE | 2019-10-09 00:09 | PC.NURSE ---
Addendum entered by Swati Sharp R.N. 10/09/19 00:41: post IVF bolus 92/50, MAP 67. HR 61. Provider notified. Pt states, I feel good: Will resume maintenance IVF. Original Note: BP BP 85/49, recheck 84/44 RUE, HR 81. Pt A&O x4, denies dizziness or s/s. New order NS bolus 500 over 30mins. Started/infusing.
[2019-10-09] MEDS: SODIUM CHLORIDE 0.9% 500 ML 1000 ML IV (00:10)
[2019-10-09] MEDS: QUETIAPINE 25 MG TABLET 12.5 MG PO ×2 (00:49→20:28)
[2019-10-09] MEDS: KCL 40 MEQ IN NS 1,000 ML 85 MEQ IV (00:50)
--- NOTE | 2019-10-09 02:20 | PC.NURSE ---
DONALD Puri and this RN changed dressing to right heel using Allevyn. Dressing dated and timed. Stage 3 pressure ulcer to right heel, measures [id number], depth 3cm. Photo taken using hospital camera. Pt denies pain to wound, no drainage noted, wound bed pink in exact center, surrounding center wound bed white/creamy. Skin around the wound intact, no redness. Right leg with lymphaedema due to previous surgery. Top half of right thigh rigid to touch, non-pitting. Old scar to inguinal area. Right calf red to pink in color, puffy edema present in calf. Floating both heels at all times. CMS intact to right foot, pedal pulse present. Left heel with intact skin, no areas of redness. Alleyvn dressing to stage 3 pressure (per report) intact to right mid buttock. Pt q2hr turn from back to left side, minimizing time on right buttock. Await final UA results. Pt incontinent of urine, offering urinal with turns, pt incontinent. A&O x4.
[2019-10-09 06:04] LABS: RBC Urine None Seen (0-5/HPF)
[2019-10-09 06:21] LABS: Appearance Urine UA SL CLOUDY; Bilirubin Urine UA NEGATIVE (NEGATIVE); Color Urine UA YELLOW; Glucose Urine UA NEGATIVE (Negative); Ketones Urine UA NEGATIVE (NEGATIVE); Leukocyte Esterase Urine UA 1+ (NEGATIVE); Nitrite Urine UA NEGATIVE (Negative); Occult Blood Urine UA TRACE-INTACT (Negative); Protein Urine UA NEGATIVE (Negative); Urobilinogen Urine UA 0.2 E.U./dL (0.2); pH Urine UA 5.5 (4.5-8.0)
[2019-10-09 06:22] LABS: Bacteria Urine Many (>30); Culture Indicated Urine Specimen Cultured; WBC Urine 30-100/HPF (0-5/HPF)
[2019-10-09 07:08] LABS: Add Manual Diff / Slide Review NO; Basophils Absolute Auto 0 /uL (0-100); Basophils Percent Auto 0.5 % (0-2); Eosinophils Absolute Auto 200 /uL (0-450); Eosinophils Percent Auto 3.4 % (2-4); Hematocrit 32.6 % (41-53); Hemoglobin 11.1 g/dL (13.5-17.5); Lymphocytes Absolute Auto 1000 /uL (1100-4500); Lymphocytes Percent Auto 19.5 % (25-40); Mean Corpuscular Hemoglobin 29.7 PG (26-34); Mean Corpuscular Volume 87.4 fL (80-100); Monocytes Absolute Auto 600 /uL (0-900); Monocytes Percent Auto 12.8 % (3-14); Neutrophils Absolute Auto 3100 /uL (1500-7000); Neutrophils Percent Auto 63.8 % (50-75); Platelet Count 127 X10^3/uL (150-400); Red Blood Cell Count 3.72 X10^6/uL (4.5-5.9); Red Cell Distribution Width 14.8 % (11.6-14.8); White Blood Cell Count 4.9 X10^3/uL (4.5-11.0)
[2019-10-09 07:20] LABS: BUN Creatinine Ratio 26.7 (6-22); Blood Urea Nitrogen 24 mg/dL (9-20); Calcium 8.2 mg/dL (8.4-10.2); Carbon Dioxide 26 mmol/L (22-32); Chloride 106 mmol/L (98-107); Estimated Glomerular Filt Rate > 60.0 mL/min (>60); Glucose 88 mg/dL (80-110); HEMOLYSIS < 15 (0-50); Potassium 3.3 mmol/L (3.4-5.1); Sodium 139 mmol/L (137-145)
[2019-10-09] MEDS: ENOXAPARIN 40 MG/0.4 ML SYRINGE SUBCUT (10:25)
--- NOTE | 2019-10-09 10:48 | PC.NURSE ---
AM NOTE - pt has been asleep throughout shift report, will awaken at times to voice stimulus and touch, when attempted vitals this am, pt strikes out with forearm and then holds it tightly to chest and states later, checked regularly this am and when awake, sat upright, opens eyes, tooks sips boost and a few bites oatmeal, returns to sleep and when in later am, pt does not respond to verbal or touch until attempted to check abd area and then strikes out again and states later, pt did allow visualization of r foot wound with cortez GLOVER and dsg removed, has small ulcer later r heel, area cleaned with chlorhexidine, applied hydrogel and redressed with allevyn and pt did not make any response during eval and this care.
[2019-10-09] MEDS: TAMSULOSIN 0.4 MG CAPSULE PO (12:47)
[2019-10-09] MEDS: POTASSIUM CHLORIDE 20 MEQ TAB 40 MEQ PO (12:54)
[2019-10-09] MEDS: SODIUM CHLORIDE 0.9% 1,000 ML 100 ML IV (14:05)
--- NOTE | 2019-10-09 15:48 | CM.DANOTE ---
Addendum entered by Autumn Valenzuela R.N. 10/09/19 16:23: Cm reviewed previous IP stay CM notes and saw that the patients Ariana actually lives at [facility] here in [place] so she can see her regularly and they only way to get a hold of her is to call the main hotel line and ask for patients Ariana Montes. The number is [phone] patients doesn't wake up until late in the day after 11am. CM attempted to call today 10/09/2019 and patients was not available. Wanted to discuss possible SNF choices. Patient was at [facility] in May 2019. Maybe they will accept patient back there. Autumn Valenzuela RN. Original Note: DCP Breif assessment: EMR Reviewed: Patient is an 79 yr old male who was admitted as IP for metabolic encephalopathy and UTI. PCP is Dr. Alarcon. patient has moderate dementia. CM/RN attempted to meet with the patient at the bedside to discuss d/c plan. Patient was unable to participate in CM/RN meeting and did not respond to CM questions just stared at the floor and at . CM/RN attempted to contact patients JOSEPHINE () Mone Montes at [phone] but the phone number was disconnected and no other phone number listed. CM/RN will attempt to find a new phone number. Contacted [facility] to determine if patient can return there at d/c. CM left voice message for them to return call. Patient will probably need on going wound care management. Insurance: Medicare : 2nd: [employer] Plan: D/C back to [facility] vs SNF. CM department to follow up on d/c plan as patient becomes medically stable. CM department to f/u with [facility] as well as f/u with patients [address] to determine choices for d/c planning. As well as possible choice for SNF if needed. Autumn Valenzuela RN Discharge Planning/Care Management CM Discharge Assessment Start: 10/09/19 15:36 Freq: Status: Active Protocol: Document 10/09/19 15:37 HS (Rec: 10/09/19 15:48 HS [id number]) Discharge Planning Assessment Assigned Electrical Systems Design Engineer Autumn Valenzuela RN DPOA/Assigned Designee Name Ariana Montes Advance Directives? Yes History Provided By Medical Record Has Patient been admitted in last 30 No days? Prior Living Arrangements Assisted Living Household Members other Comment Patient lives at [facility] living - Type of transporation used prior to Relies on Others admit Facility Name Admitted From: [facility] Independent with ADL's No Is patient alert and oriented? No Needs Assistance With Bathing,Eating,Grooming,Meal Prep,Toileting,Managing Medications,Home Chores / Shopping Caregiver for Another No Comment not sure if patient cal return to [facility] or need a SNF at d/c. Comment . Additional Comment SNF vs return to [facility] assisted living Whiteboard Updated in Patient Room with Yes name and ext. # of Electrical Systems Design Engineer Review Status In Process Next Review Type Continued Stay Review
--- NOTE | 2019-10-09 17:07 | PM.PN.1 ---
Subjective Subjective Date Patient Seen: 10/09/19 Interval history: Patient is 79-year-old male resident of [facility], history of dementia with behavioral disturbance, hypertension, prostate CA, chronic right lower extremity lymphedema, bowel and bladder incontinence, right heel pressure ulcer, sacral pressure ulcer, history of recurrent UTI, admitted due to acute unresponsiveness with decrease in mental status. He remains mostly obtunded but gets combative when able to briefly wake him up. He is unable to provide meaningful history. Exam Vital Signs (past 8 hours): - 10/09/19 13:25 10/09/19 16:52 Temperature 97.6 F 97.6 F Pulse Rate 67 66 Respiratory Rate 15 16 Blood Pressure 117/70 121/74 Pulse Oximetry 100 100 Oxygen Delivery Method Room Air Oxygen Flow Rate 0 Narrative Exam Narrative: General: Mostly attended male who also gets combative when awakened Lungs: Clear to auscultation Heart: Regular rhythm Abdomen: Soft Extremities: Chronic edema with minimal erythema of right lower leg Skin: Chronic unstageable right sacrum pressure ulcer and unstageable right heel pressure ulcer Objective Labs Result Diagrams: 10/09/19 06:50 10/09/19 06:00 Labs: Laboratory Results - last 24 hr 10/08/19 10/08/19 10/08/19 14:03 14:03 14:03 WBC RBC Hgb Hct MCV MCH MCHC RDW Plt Count Neut % (Auto) Lymph % (Auto) [place] % (Auto) Eos % (Auto) Baso % (Auto) Neut # (Auto) Lymph # (Auto) [place] # (Auto) Eos # (Auto) Baso # (Auto) ESR 21 H Sodium Potassium Chloride Carbon Dioxide BUN Creatinine Estimated GFR BUN/Creatinine Ratio Glucose Calcium Magnesium 2.0 C-Reactive Protein 3.5 H Urine Color Urine Appearance Urine pH Ur Specific Eva Urine Protein Urine Glucose (UA) Urine Ketones Urine Occult Blood Urine Nitrate Urine Bilirubin Urine Urobilinogen Ur Leukocyte Esterase Urine RBC Urine WBC Urine Bacteria Ur Culture Indicated? U Morph 300 ng/mL cutoff Ur Oxycodone Screen Urine Methadone Screen Ur Barbiturates Screen U Tricyclic Antidepress Ur Phencyclidine Scrn Ur Amphetamines Screen U Methamphetamines Scrn Ur MDMA Scrn (Ecstasy) U Benzodiazepines Scrn Urine Cocaine Screen U Marijuana (THC) Screen 10/08/19 10/08/19 10/09/19 17:30 17:30 06:00 WBC RBC Hgb Hct MCV MCH MCHC RDW Plt Count Neut % (Auto) Lymph % (Auto) [place] % (Auto) Eos % (Auto) Baso % (Auto) Neut # (Auto) Lymph # (Auto) [place] # (Auto) Eos # (Auto) Baso # (Auto) ESR Sodium 139 Potassium 3.3 L Chloride 106 Carbon Dioxide 26 BUN 24 H Creatinine 0.90 Estimated GFR > 60.0 BUN/Creatinine Ratio 26.7 H Glucose 88 Calcium 8.2 L Magnesium C-Reactive Protein Urine Color Yellow Urine Appearance Sl cloudy Urine pH 5.5 Ur Specific Eva 1.010 Urine Protein Negative Urine Glucose (UA) Negative Urine Ketones Negative Urine Occult Blood Trace-intact Urine Nitrate Negative Urine Bilirubin Negative Urine Urobilinogen 0.2 Ur Leukocyte Esterase 1+ H Urine RBC None seen Urine WBC 30-100/hpf H Urine Bacteria Many (>30) H Ur Culture Indicated? Specimen cultured U Morph 300 ng/mL cutoff Negative Ur Oxycodone Screen Negative Urine Methadone Screen Negative Ur Barbiturates Screen Negative U Tricyclic Antidepress Negative Ur Phencyclidine Scrn Negative Ur Amphetamines Screen Negative U Methamphetamines Scrn Negative Ur MDMA Scrn (Ecstasy) Negative U Benzodiazepines Scrn Negative Urine Cocaine Screen Negative U Marijuana (THC) Screen Negative 10/09/19 06:50 WBC 4.9 RBC 3.72 L Hgb 11.1 L Hct 32.6 L MCV 87.4 MCH 29.7 MCHC 34.0 RDW 14.8 Plt Count 127 L Neut % (Auto) 63.8 Lymph % (Auto) 19.5 L [place] % (Auto) 12.8 Eos % (Auto) 3.4 Baso % (Auto) 0.5 Neut # (Auto) 3100 Lymph # (Auto) 1000 L [place] # (Auto) 600 Eos # (Auto) 200 Baso # (Auto) 0 ESR Sodium Potassium Chloride Carbon Dioxide BUN Creatinine Estimated GFR BUN/Creatinine Ratio Glucose Calcium Magnesium C-Reactive Protein Urine Color Urine Appearance Urine pH Ur Specific Eva Urine Protein Urine Glucose (UA) Urine Ketones Urine Occult Blood Urine Nitrate Urine Bilirubin Urine Urobilinogen Ur Leukocyte Esterase Urine RBC Urine WBC Urine Bacteria Ur Culture Indicated? U Morph 300 ng/mL cutoff Ur Oxycodone Screen Urine Methadone Screen Ur Barbiturates Screen U Tricyclic Antidepress Ur Phencyclidine Scrn Ur Amphetamines Screen U Methamphetamines Scrn Ur MDMA Scrn (Ecstasy) U Benzodiazepines Scrn Urine Cocaine Screen U Marijuana (THC) Screen Assessment & Plan Assessment & Plan narrative: Patient is 79-year-old male resident of [facility], history of dementia with behavioral disturbance, hypertension, prostate CA, chronic right lower extremity lymphedema, bowel and bladder incontinence, right heel pressure ulcer, sacral pressure ulcer, history of recurrent UTI, admitted due to acute unresponsiveness with decrease in mental status. 1. Acute metabolic encephalopathy, present on admission -patient thought to be dehydrated and received IV fluids but this a.m. without improvement in mental status, urinalysis concerning for urinary infection as possible source of altered mentation -continue treatment of dehydration and UTI -NPO until more responsive 2. Urinary tract infection, present on admission -urinalysis positive for moderate leukocytes and many bacteria, culture pending -continue IV Levaquin 3. Acute dehydration, present on admission -continue IV fluids -hold patient's furosemide 4. Right lower extremity lymphedema, chronic -mild erythema does not appear significant for cellulitis 5. Chronic pressure ulcers of sacrum and right heel -prior history of positive wound culture for MRSA, currently without evidence of infected ulcer -Change dressing thrice weekly --, cleanse extremity with chlorhexidine, and apply hydrogel dressing (Allevyn Gentle Border) -Off load, place in Waffle boot (both lower extremities) 6. Hypokalemia, acute, present on admission -K 3.3, continue 40 mEq K in maintenance IV fluid 7. Dementia with behavioral disturbance, chronic -they resume Seroquel 12.5 mg b.i.d. when patient able to take p.o. 8. BPH, chronic -resume tamsulosin when patient able to take p.o. 9. Mild anemia and thrombocytopenia, chronic -monitor periodically as indicated 10. Code status -full code per POLST
[2019-10-09] MEDS: KCL 40 MEQ IN NS 1,000 ML 84 MEQ IV (17:54)
[2019-10-09] MEDS: levoFLOXacin 500 MG/100 ML PIGGYBACK 100 MG IV (17:55)
--- NOTE | 2019-10-09 21:42 | PC.NURSE ---
A&O to self. pt is cooperative and non-combative. Pt ate 95% of his dinner independently. He also drank some Ensure. Pt brushed his teeth independently. q2turn. incontinent 2person assist to change. pt had 1 BM today. Pt denied pain. came to visit during dinner time and reports that he is back to his baseline. Call light in reach. bed alarm active.
[2019-10-10 03:00] VITALS: BP 125/73; PULSE 77; RESP 18; TEMP 37; O2SAT 97
--- NOTE | 2019-10-10 03:27 | PC.NURSE ---
Addendum entered by Alphonse Trevizo R.N. 10/10/19 06:46: Notified from lab that patient has ESBL+ urine. Abner BENNETT notified of results. Patient is already on contact precautions. Original Note: Patient has been agitated this night and trying to get out of bed. Patient offered distractions such as music, television, but declined. Patient denies pain. Allevyn dressing on coccyx changed on this shift. Bed alarm on, bed low and locked, call light within reach.
[2019-10-10 05:49] LABS: Blood Urea Nitrogen 20 mg/dL (9-20); Calcium 8.6 mg/dL (8.4-10.2); Carbon Dioxide 26 mmol/L (22-32); Chloride 109 mmol/L (98-107); Estimated Glomerular Filt Rate > 60.0 mL/min (>60); Glucose 95 mg/dL (80-110); HEMOLYSIS < 15 (0-50); Potassium 3.8 mmol/L (3.4-5.1); Sodium 140 mmol/L (137-145)
[2019-10-10] MEDS: KCL 40 MEQ IN NS 1,000 ML 84 MEQ IV ×2 (05:53→22:02)
[2019-10-10 07:00] VITALS: BP 129/75; PULSE 80; TEMP 36.3; O2SAT 80
[2019-10-10] MEDS: ERTAPENEM 1 GM in SODIUM CHLORIDE 0.9% 100 ML 200 ML IV (07:49)
[2019-10-10] MEDS: QUETIAPINE 25 MG TABLET 12.5 MG PO ×2 (08:45→21:54)
[2019-10-10] MEDS: CHOLECALCIFEROL (VITAMIN D3) 1,000 UNIT TABLET 1000 UNIT PO (08:46)
[2019-10-10] MEDS: CYANOCOBALAMIN (VITAMIN B-12) 500 MCG TABLET PO (08:46)
[2019-10-10] MEDS: ASPIRIN EC 81 MG TABLET PO (08:46)
[2019-10-10] MEDS: TAMSULOSIN 0.4 MG CAPSULE PO (08:47)
[2019-10-10] MEDS: ENOXAPARIN 40 MG/0.4 ML SYRINGE SUBCUT (08:47)
--- NOTE | 2019-10-10 09:28 | PC.NURSE ---
Addendum entered by Melia Mckenzie R.N. 10/10/19 14:27: More awake after receiving bedbath/[facility]-care. Sitting up in bed feeding himself lunch now. Denies needs/complaints at this time. Light in reach, bed alarm on. Addendum entered by Melia Mckenzie R.N. 10/10/19 13:47: Assumed care of this patient (transferred to room 207) approx 0945. Patient has largely been sleeping/resting throughout the day. Appears comfortable. Arouses easily to voice/touch. Oriented to self only. Has not been agitated or combative. Was able to feed himself breakfast but declined his lunch. IVF and abx per orders, new IV site established in R FA this morning and has been working well. Dr Ricky anderson rounded- anticipate orders to initiate physical therapy. Q2H assist with repositioning. Call light and belongings within reach, bed alarm on. Original Note: AM NOTE - pt is awake, incont loose brown stool, removed allevyn dsg buttock due soiling, area cleaned, applied barrier cream and placed a waffle cushion, left open air, r heel allevyn cdi, wearing heel protector, becomes restless later this am, initially refusing breakfast, attempting oob, pt responses not related to questions, states has places to go to, attempting reorient to hospital, discussed with coordinator and pt was trsf to a room 207 outside nursing station for closer observation, distracted with breakfast, this am, bs clear, ra 95%, hr 84.
--- NOTE | 2019-10-10 13:31 | PM.PN.1 ---
Subjective Subjective Date Patient Seen: 10/10/19 Interval history: Patient is 79-year-old male resident of [facility], history of dementia with behavioral disturbance, hypertension, prostate CA, chronic right lower extremity lymphedema, bowel and bladder incontinence, right heel pressure ulcer, sacral pressure ulcer, history of recurrent UTI, admitted due to acute unresponsiveness with decrease in mental status. Found to have ESBL E coli UTI. Patient with improvement in alertness and mentation this morning, seems back to his baseline confusion, has not been combative today. Exam Vital Signs (past 8 hours): - 10/10/19 07:00 Temperature 97.4 F L Pulse Rate 80 Blood Pressure 129/75 Pulse Oximetry 80 L Oxygen Delivery Method Room Air Oxygen Flow Rate 0 Narrative Exam Narrative: General: Sleeping but easily awakens and pleasant Lungs: Clear to auscultation Heart: Regular rhythm Abdomen: Soft Extremities: Chronic lymphedema right lower leg with minimal erythema Skin:Chronic unstageable right sacrum pressure ulcer and unstageable right heel pressure ulcer Neurological: Appears back at baseline confused status with dementia, today is cooperative with care Objective Labs Result Diagrams: 10/09/19 06:50 10/10/19 05:21 Labs: Laboratory Results - last 24 hr 10/10/19 05:21 Sodium 140 Potassium 3.8 Chloride 109 H Carbon Dioxide 26 BUN 20 Creatinine 0.80 Estimated GFR > 60.0 BUN/Creatinine Ratio 25.0 H Glucose 95 Calcium 8.6 Assessment & Plan Assessment & Plan narrative: Patient is 79-year-old male resident of [facility], history of dementia with behavioral disturbance, hypertension, prostate CA, chronic right lower extremity lymphedema, bowel and bladder incontinence, right heel pressure ulcer, sacral pressure ulcer, history of recurrent UTI, admitted due to acute unresponsiveness with decrease in mental status. 1. Acute metabolic encephalopathy, present on admission -acute mental status change likely secondary to urinary infection, patient is doing better as of a.m. 10/10/2019 -continue treatment of UTI -diet as tolerated 2. Urinary tract infection, ESBL E coli, present on admission -urine culture positive for ESBL E coli, blood cultures negative -discontinued Levaquin due to resistance, on ertapenem 1 g IV daily since a.m. 10/10/2019 -consider 3 day IV antibiotic course with ertapenem for UTI treatment, last dose 10/12/2019 3. Acute dehydration, present on admission -continue maintenance IV fluids -restart furosemide 40 mg daily 4. Right lower extremity lymphedema, chronic -mild erythema does not appear significant for cellulitis 5. Chronic pressure ulcers of sacrum and right heel -prior history of positive wound culture for MRSA, currently without evidence of infected ulcer -Change dressing thrice weekly --, cleanse extremity with chlorhexidine, and apply hydrogel dressing (Allevyn Gentle Border) -Off load, place in Waffle boot (both lower extremities) 6. Hypokalemia, acute, present on admission -corrected, continue 40 mEq K in maintenance IV fluid 7. Dementia with behavioral disturbance, chronic -continue Seroquel 12.5 mg b.i.d. per outpatient routine 8. BPH, chronic -continue tamsulosin per outpatient routine 9. Mild anemia and thrombocytopenia, chronic -monitor periodically as indicated Patient responding to IV antibiotic treatment and likely needs a couple more days in hospital for IV antibiotic treatment before return to [facility]. Ordered PT jessica.
[2019-10-10 13:40] VITALS: BP 127/70; PULSE 73; RESP 18; TEMP 36.4
--- NOTE | 2019-10-10 14:08 | CM.DPC ---
DCP/continued: Reviewed chart. Per Dr. García in AM rounds patient not medically stable for d/c today. Patient has had some behavioral disturbances during hospitalization and moved to room# 207. [employer] attempted visit but no family/spouse at bedside. Per CM notes, spouse resides at local [facility]. [employer] placed call to Lacie at [facility] cell# [phone] re: patient baseline and if patient can return when medically stable. Lacie reports that patient had [facility] at [facility] for therapy prior to hospitalization. [facility] would like that resumed upon d/c if he returns. In addition, Lacie reports patient was NWB on right foot. They were using antoine lift for transferring. Lacie agreeable to come and assess for patient to return. At this time d/c date unknown. Lacie has meetings most of the day tomorrow -20 but does have free time around noon. [employer] asked that she call [employer] line to check on whether or not a return to [facility] assessment is needed tomorrow vs. -. From the conversation with Lacie today, she anticipates that they will be able to meet patient's needs and take him back when he is medically stable. P: Most likely return to [facility] when medically stable. Therapy evaluation pending. PT notified of NWB status on right foot. Home Health will need to be resumed with [facility] prior to d/c. Asked RN to notify CM team if spouse arrives. Otherwise, will need to attempt to reach her at [facility] prior to d/c. JERICHO Roach
[2019-10-10 15:55] VITALS: BP 123/82; PULSE 90; RESP 20; TEMP 36.6; O2SAT 97
--- NOTE | 2019-10-10 16:52 | PT-IP ANOTE ---
Received PT eval order. Talked pt and pt with confusion and unable to obtain accurate PLOF. Called [facility] and talked to nurse Lacie. stated that pt is NWB on RLE to promote wound healing. [facility] has been working with pt. Nurse stated that pt is a antoine lift transfer and is incontinent of bladder/bowel; requires total assist with almost everything except feeding. pt unable to follow NWB on RLE and requires the antoine lift for transfers. requires assist with w/c management. Talked to Dr. García regarding pt's PLOF and agreed that there is no indication for PT intervention at this time. PT to d/c order.
[2019-10-10 19:57] VITALS: BP 127/76; PULSE 68; RESP 18; TEMP 36.7; O2SAT 99
[2019-10-10] MEDS: SENNOSIDES 8.6 MG TABLET 17.2 MG PO (21:55)
[2019-10-11] VITALS: BP 116/79; PULSE 79; RESP 16; TEMP 36.5; O2SAT 97
[2019-10-11] MEDS: ERTAPENEM 1 GM in SODIUM CHLORIDE 0.9% 100 ML 200 ML IV (06:16)
[2019-10-11 06:20] VITALS: BP 123/70; PULSE 64; RESP 16; TEMP 36.6; O2SAT 97
[2019-10-11 06:25] LABS: BUN Creatinine Ratio 21.4 (6-22); Blood Urea Nitrogen 15 mg/dL (9-20); Calcium 8.6 mg/dL (8.4-10.2); Carbon Dioxide 25 mmol/L (22-32); Chloride 109 mmol/L (98-107); Estimated Glomerular Filt Rate > 60.0 mL/min (>60); Glucose 90 mg/dL (80-110); HEMOLYSIS < 15 (0-50); Magnesium 1.8 mg/dL (1.6-2.3); Potassium 3.8 mmol/L (3.4-5.1); Sodium 140 mmol/L (137-145)
[2019-10-11 07:30] VITALS: BP 128/75; PULSE 69; RESP 16; TEMP 36.6; O2SAT 97
[2019-10-11] MEDS: TAMSULOSIN 0.4 MG CAPSULE PO (09:41)
[2019-10-11] MEDS: ASPIRIN EC 81 MG TABLET PO (09:41)
[2019-10-11] MEDS: ENOXAPARIN 40 MG/0.4 ML SYRINGE SUBCUT (09:41)
[2019-10-11] MEDS: SENNOSIDES 8.6 MG TABLET 17.2 MG PO (09:41)
[2019-10-11] MEDS: KCL 40 MEQ IN NS 1,000 ML 84 MEQ IV (09:41)
[2019-10-11] MEDS: CYANOCOBALAMIN (VITAMIN B-12) 500 MCG TABLET PO (09:41)
[2019-10-11] MEDS: CHOLECALCIFEROL (VITAMIN D3) 1,000 UNIT TABLET 1000 UNIT PO (09:41)
[2019-10-11] MEDS: QUETIAPINE 25 MG TABLET 12.5 MG PO (09:42)
[2019-10-11 12:04] VITALS: BP 130/80; PULSE 68; RESP 16; TEMP 36.8; O2SAT 97
--- NOTE | 2019-10-11 13:30 | PC.NURSE ---
Do not given meropenum today per Jimi in pharmacy as to start outpatient tomorrow at SNF. Jovany covers for 24 hours and patient received this morning.
--- NOTE | 2019-10-11 13:45 | CM.DPC ---
DCP Cont: Faxed signed med list and PASRR to [facility] at fax # [phone]. Fax confirmation scanned in. Venita Davila, [facility]
--- NOTE | 2019-10-11 13:48 | PM.DS.1 ---
History of Present Illness History of Present Illness Date Patient Seen: 10/08/19 Chief complaint: Mental status change Narrative: Written by Abner BENNETT: The patient is an 79-year-old male, a resident of [facility], w/ PMHx of HTN, [id number]-ci-[id number] dementia w/ behavioral disturbance / cognitive impairment, BPH, prostate cancer (s/p prostatectomy), SCC (s/p resection), h/o right inguinal lymphnode resection, chronic RLE lymphedema, h/o chemotherapy, chemotherapy induced neuropathy, bowel and bladder incontinence, chronic constipation, urinary retention, recurrent UTIs, right heel pressure ulcer, and sacral pressure ulcer. Patient is known to have multiple hospitalizations for acute encephalopathy, frequently in the setting of a urinary tract infection. Patient presented to the ED via EMS on 10/08 at 1305. According to the nursing facility patient had decreased mental status, but was arousable to voice.Symptoms were noted after patient has taken his morning medication. Pt's VS on arrival to the ED... T 98.4F BP 89/51 mmHg HR 75 RR 14 SpO2 97% on RA. GCS 10. Hypotension was treated with a total of 2 L of IV fluid with mild improvement in BP and significant improvement in patient's mental state, which essentially returned to his baseline. No known recent illness. Patient has not had fever chills. He is not complaining of acute distress, chest pain, palpitations, dyspnea, abdominal pain, or GI distress. No symptoms of URI evident. Patient is known to have BPH with bowel bladder incontinence. He is known to struggle with constipation. Also, known to have recurrent hospitalizations for UTI, last in January of 2019. He also has chronic ulcer on his right lower extremity and buttock. There has not been a change in patient's medications. ED Presentation & Work-Up VS, 10/08 1315. T 98.4 BP 89/51 mmHg HR 75 RR 14 SpO2 97% on RA Labs, 10/08 1403 WBC 8.5 Lactate 1.0 Hgb 12.2 Hct 36.3 Plt 149 PT 14.1 INR 1.2 aPTT 32 Na 141 K 3.3 Cl 104 Ca 8.3 Alb 3.4 Glu 92 CO2 28 BUN 23 Cr 0.9 BUN:Cr 25.6 AST 26 ALT 12 Alk Phos 97 T.Bili 0.9 Ammonia < 9 Prolactin 20.7 Trop < 0.012 TSH 0.48 UDS NEGATIVE. Acetaminophen < 10. Salicylate < 1. Ethyl Alcohol < 10 Urine Dipstick negative for glucose, bilirubin, ketone, protein, urobilinogen, nitrite positive for LE ++ 125 CT HEAD negative for acute findings CXR negative for acute cardiopulmonary findings U/S LLE negative for DVT In ED was treated with 2 L of normal saline and started on 500 mg IV levofloxacin. Discharge Providers Provider Date of admission: 10/08/19 18:31 Discharge Date: 10/11/19 Primary care physician: Bill Alarcon MD Consults: 10/10/19 13:48 Consult to Physical Therapy Evaluate & Treat Comment: Physician Instructions: Evaluate and Treat Discharge provider: Kalina Duff DO Summary Hospital Course Discharge Diagnosis: 1. Acute metabolic encephalopathy on chronic moderate to severe dementia with behavioral disturbance, present on admission. Resolved. 2. Recurrent urinary tract infection now with ESBL E. coli, present on admission. Resolving. 3. Acute dehydration, present on admission. Resolved. 4. Hypokalemia, acute, present on admission. Resolved. 5. Right lower extremity lymphedema, chronic, present on admission. Stable. 6. Chronic pressure ulcers of sacrum and right heel, present on admission. Stable. 7. BPH, chronic, present on admission. Stable. 8. Mild anemia and thrombocytopenia, chronic, present on admission. Stable. Hospital Course: Jimi Montes is an 79-year-old male resident of [facility] with a past medical history significant for dementia with behavioral disturbance, hypertension, prostate CA, chronic right lower extremity lymphedema, bowel and bladder incontinence, right heel pressure ulcer, sacral pressure ulcer, history of recurrent UTI who presented to ED via EMS from [facility] for acute unresponsiveness with decrease in mental status. 1. Acute metabolic encephalopathy on chronic moderate to severe dementia with behavioral disturbance, present on admission. Resolved. -Acute metabolic encephalopathy secondary to urinary infection. Patient has longstanding moderate to severe dementia with intermittent hallucinations, alert oriented to person only, is incontinent of both bowel and bladder and is dependent with all ADLs other than feeding himself. His language is intact. Patient is well known to me and appears to be at his baseline mentation. -Continued treatment of UTI as below. -Continued diet as tolerated. -Continued Seroquel 12.5 twice daily. 2. Recurrent urinary tract infection now with ESBL E. coli, present on admission. Resolving. -Urine culture positive for ESBL E. coli. -Blood cultures have no growth to date. -Discontinued Levaquin due to resistance and started meropenem 1 g every 8 hours for 5 days total to stop after morning dose on 10/15/19. 3. Acute dehydration, present on admission. Resolved. -Continued IV fluids until adequately hydrated and patient was taking in PO intake. -Held furosemide 40 mg daily during hospitalization and may restart as an outpatient in the next 1-2 days. 4. Hypokalemia, acute, present on admission. Resolved. -Initial potassium level 3.3. Received potassium chloride 40 mEQ IV and 80 mEq PO. Continued potassium chloride 40 mEq in normal saline for maintenance IV fluids and discontinued once adequately hydrated and patient was taking in PO intake. -Started potassium chloride 10 mEq daily and recommend continued outpatient monitoring of potassium level (ordered BMP in 2 days) and adjustment of potassium supplementation as needed. 5. Right lower extremity lymphedema, chronic, present on admission. Stable. -Mild erythema does not appear infected or cellulitic. -Held furosemide 40 mg daily during hospitalization and may restart as an outpatient in the next 1-2 days. Continued conservative measures and elevate legs frequently. 6. Chronic stage II pressure ulcers of sacrum and right heel, present on admission. Stable. -Patient is bed and wheel chair bound. -Prior history of positive wound culture for MRSA. Currently without evidence of infected ulcer. -Change dressing three times weekly M-W-F, cleanse extremity with chlorhexidine, and apply hydrogel dressing (Allevyn Gentle Border). -Off load, place in Waffle boot (both lower extremities). -Held furosemide 40 mg daily during hospitalization and may restart as an outpatient in the next 1-2 days. 7. BPH, chronic, present on admission. Stable. -Continued tamsulosin 0.4 mg daily. 8. Mild anemia and thrombocytopenia, chronic, present on admission. Stable. -Likely anemia of chronic disease. Patient intermittently mildly thrombocytopenic possibly due to blood draw or other etiology. -No overt signs of bleeding. -Continued to monitor for signs of bleeding and CBC periodically. Exam Vital Signs (past 8 hours): - 10/11/19 06:20 10/11/19 07:30 10/11/19 12:04 Temperature 97.9 F 97.8 F 98.2 F Pulse Rate 64 69 68 Respiratory Rate 16 16 16 Blood Pressure 123/70 128/75 130/80 Pulse Oximetry 97 97 97 Oxygen Delivery Method Room Air Oxygen Flow Rate 0 Narrative Exam Narrative: General: Elderly male lying in bed and in no acute distress, appears chronically ill, moderate to severe dementia with short-term memory recall deficit but appropriately interactive otherwise. HEENT: Normocephalic, atraumatic. External ears without defect. Pupils equal, round, and reactive to light. Anicteric sclerae, moist conjunctivae, and no lid lag. Neck: Supple with full range of motion. No lymphadenopathy or thyromegaly. Cardiovascular: Regular rate and rhythm without murmurs, rubs, or gallops appreciated. Pulmonary: Clear to auscultation bilaterally without crackles, wheezes, or rhonchi. Normal respiratory effort with no use of accessory muscles. Abdomen: Soft, bowel sounds present, non-tender, non-distended. No hepatosplenomegaly or masses appreciated. Extremities: No clubbing or cyanosis. Right lower extremity modertate lymphedema with mild erythema but does not appear to be cellulitic. Stage II pressure ulceration on posterior plantar aspect of heel and sacrum that appears to be healing. Skin: Normal temperature, turgor, and texture; no rash, ulcers, or subcutaneous nodules appreciated. Neurological: Cranial nerves grossly intact. Generalized weakness and physical deconditioning mostly bed bound. Psychiatric: Alert oriented to person only. Appears to be at his baseline mentation with moderate to severe dementia with short-term memory recall deficit and intermittent hallucination. Objective Labs Result Diagrams: 10/09/19 06:50 10/11/19 06:00 Labs: Laboratory Results - last 24 hr 10/11/19 06:00 Sodium 140 Potassium 3.8 Chloride 109 H Carbon Dioxide 25 BUN 15 Creatinine 0.70 Estimated GFR > 60.0 BUN/Creatinine Ratio 21.4 Glucose 90 Calcium 8.6 Magnesium 1.8 Discharge Plan Discharge Plan Patient Disposition: SNF Transfer to: [facility] Discharge orders & Medications Prescriptions: New meropenem [Merrem] 1 gram Recon Soln 1 g IV Q8H 5 Days RF: 0 potassium chloride 10 mEq tablet extended release 10 meq PO DAILY Qty: 10 RF: 0 Continued aspirin 81 mg Tablet,Delayed Release (Dr/Ec) 81 mg PO DAILY RF: 0 cyanocobalamin (vitamin B-12) [Vitamin B-12] 500 mcg Tablet 500 mcg PO DAILY RF: 0 cholecalciferol (vitamin D3) [Vitamin D3] 1,000 unit Tablet 1,000 unit PO DAILY RF: 0 tamsulosin [Flomax] 0.4 mg Capsule 0.4 mg PO DAILY Qty: 30 RF: 0 ascorbic acid (vitamin C) 500 mg Capsule 500 mg PO DAILY RF: 0 magnesium hydroxide [Milk of Magnesia] 400 mg/5 mL Suspension 30 ml PO PRN PRN (Reason: Constipation) RF: 0 bisacodyl 10 mg Suppository 10 mg UT PRN PRN (Reason: Constipation) RF: 0 Fleet Enema 19-7 gram/118 mL Enema 1 ea UT PRN PRN (Reason: Constipation) RF: 0 bisacodyl 5 mg Tablet 5 - 10 mg PO PRN PRN (Reason: mild-severe constipation) RF: 0 acetaminophen [Tylenol Arthritis Pain] 650 mg tablet extended release 650 mg PO TID RF: 0 quetiapine [Seroquel] 25 mg tablet 12.5 mg PO BID Qty: 30 RF: 0 furosemide 40 mg Tablet 40 mg PO DAILY Qty: 0 RF: 0 Discontinued doxycycline hyclate 100 mg tablet 100 mg PO [id number] RF: 0 Other Ambulatory Orders: Basic Metabolic Panel (Stat) Timeframe: 2 Days Facility: [facility] - Location: Laboratory Ordered By: Kalina Duff Follow up/Referrals: Bill Alarcon MD [Primary Care Provider] - Discharge Health Status Health Concerns: Jimi Montes is an 78-year-old male with a past medical history significant for moderate to severe dementia with short and long-term memory recall deficit, hypertension, prostate cancer status post prostatectomy and inguinal lymph node dissection with chronic right lower extremity lymphedema and urinary retention who presented to the ED from [facility] due to decreased level of consciousness. The patient was found to have an ESBL E coli UTI and is currently on treatment with meropenem every 8 hours for 5 days total 10/10-10/15. The patient has had low potassium and required significant amount of potassium repletion. Started potassium chloride 10 mEq daily and recommend continued outpatient monitoring of potassium level (ordered BMP in 2 days) and adjustment of potassium supplementation as needed. Consider holding furosemide for 1-2 days until UTI treated inpatient is taking in adequate p.o. fluid intake. Multidrug resistant organism: Other Diet/Activity/Treatments Diet: Low-fat, Low-sodium and Low-cholesterol Activity: Activity as tolerated with forward wheeled walker and physical and occupational therapy [facility] Rehab type: Physical therapy and Occupational therapy Discharge Data Primary Care Provider: Bill Alarcon V
--- NOTE | 2019-10-11 14:05 | CM.DPNOTE ---
DC Note: According to Dr Duff, pt would be best served going to SNF for an additional 3 days of IV meropenem Q8. Spoke w/April at [facility] SNF; requested consideration that pt be admitted there for IV abx until end of course and transition back home to [facility]. April agreeable and pt accepted for admission today, w/c p/u scheduled for 1414. All SNF DC ppk faxed to [facility] to include completed PASRR. Attempted to reach spouse Berna throughout the day, played phone tag then learned via VM that Berna would come to after her errands today. Updated JIMBO Merlos on above, all aware and agreeable to plan. P: DC to [facility] SNF via w/c [place] today JERICHO Mae
--- NOTE | 2019-10-11 14:33 | PC.NURSE ---
Dressing to right heel and right buttock changed, wounds cleansed with normal saline and gauze and allevyn gentle border dressing placed. Patient tolerated well. Continues to deny pain or other complaint. Peripheral IV left in place to right forearm, CDI without signs of reddness or irritation. Patient assisted via mechanical lift to wheelchair and picked up by facility designee to discharge to [facility] to complete IV antibiotic treatment. Patient to have potassium lab work drawn on Wednesday. Report given to Irma at [facility] prior to discharge.
== END 2019-10-11 14:49 | DRG 871 ==
LOC: ED 18:14 → AC 18:32
PROVIDERS: Internal Medicine; Nurse Practitioner Gerontology; Admitting Provider Internal Medicine; Emergency Provider Emergency Medicine; PCP Internal Medicine; Visit Provider Internal Medicine
DX: A41.9 Sepsis, unspecified organism (principal); L89.313 Pressure ulcer of right buttock, stage 3; L89.614 Pressure ulcer of right heel, stage 4; G93.41 Metabolic encephalopathy; L89.623 Pressure ulcer of left heel, stage 3; N39.0 Urinary tract infection, site not specified; Z16.24 Resistance to multiple antibiotics; R65.20 Severe sepsis without septic shock; D69.6 Thrombocytopenia, unspecified; F03.90 Unspecified dementia, unspecified severity, without behavioral disturbance, psychotic disturbance, mood disturbance, and anxiety; G62.2 Polyneuropathy due to other toxic agents; I95.9 Hypotension, unspecified; B96.29 Other Escherichia coli [E. coli] as the cause of diseases classified elsewhere; E87.6 Hypokalemia; E86.0 Dehydration; N40.0 Benign prostatic hyperplasia without lower urinary tract symptoms; Z85.46 Personal history of malignant neoplasm of prostate; T45.1X5S Adverse effect of antineoplastic and immunosuppressive drugs, sequela; D64.9 Anemia, unspecified; I73.9 Peripheral vascular disease, unspecified
CPT/HCPCS: 11042; 36415; 70450; 71045; 80048; 80053; 80305; 80320; 80329; 81001; 81003; 82140; 83605; 83735; 84146; 84443; 84484; 85025; 85610; 85651; 85730; 86140; 87040; 87077; 87086; 87186; 93005; 93971; 96360; 96361; 99284; 99285; G0480; J1335; J1650; J1956; J3480

== ENCOUNTER → 2019-10-12 13:14 | Outpatient (CLI) | payer MEDICARE, SELFPAY ==
[2019-06-16 22:42] VITALS: BMI 24.3
[2019-10-08 19:24] VITALS: BMI 22.8
--- NOTE | 2019-10-12 | DI.MRI.S_ITS ---
PROCEDURE: MR ANKLE RT WO/W CON INDICATIONS: Pressure ulcer of right heel, stage 4 TECHNIQUE: Noncontrast sagittal T1 spin echo and T2 fast spin echo with fat saturation, axial proton density fast spin echo and T2 fast spin echo with fat saturation, axial T1 spin echo with fat saturation, coronal T1 spin echo and T2 fast spin echo with fat saturation through the ankle/hindfoot. Post-contrast axial, coronal, and sagittal T1 spin echo with fat saturation through the ankle/hindfoot. COMPARISON: None. FINDINGS: Image quality: Excellent. Tibiotalar joint degeneration. Diffuse muscle atrophy and plantar myositis. There is also circumferential subcutaneous edema and superficial fascial fluid about the ankle. Plantar calcaneal soft tissue changes and inflammation seen, which abuts the cortex of the calcaneus. There is adjacent medial band plantar fasciitis. However the calcaneal marrow signal appears grossly preserved. There is some mild calcaneal cortical irregularity, for example image 11 series 7, which is technically nonspecific No definite loss of the marrow fat signal intensity on T1-weighted images IMPRESSION: Soft tissue inflammation and edema at the plantar aspect of the hindfoot however no underlying specific calcaneal marrow signal changes to suggest osteomyelitis. There is some mild and subtle cortical irregularity however this is technically nonspecific. If there is persistent clinical concern, continued serial short interval radiographic followup or repeat contrast-enhanced MRI after treatment. Diffuse hindfoot and midfoot cellulitis and superficial fascial fluid. Additional signal changes suggesting edema/myositis of the intrinsic muscles of the foot. Dictated by: Adrian García M.D. on 10/12/2019 at 15:42 Approved by: Adrian García M.D. on 10/12/2019 at 15:50
== END ==
PROVIDERS: Family Provider Internal Medicine; PCP Internal Medicine; Visit Provider Family Medicine
DX: L89.614 Pressure ulcer of right heel, stage 4 (principal); L89.313 Pressure ulcer of right buttock, stage 3; I73.9 Peripheral vascular disease, unspecified; F01.50 Vascular dementia, unspecified severity, without behavioral disturbance, psychotic disturbance, mood disturbance, and anxiety
CPT/HCPCS: 11042; 73723; A9579

== ENCOUNTER → 2019-10-18 10:03 | Outpatient (CLI) | payer MEDICARE, SELFPAY ==
[2019-10-08 19:24] VITALS: BMI 22.8
== END ==
PROVIDERS: Family Provider Internal Medicine; PCP Internal Medicine; Visit Provider Family Medicine
DX: L89.614 Pressure ulcer of right heel, stage 4 (principal); L89.313 Pressure ulcer of right buttock, stage 3
CPT/HCPCS: 11042

== ENCOUNTER → 2019-10-25 14:35 | Outpatient (CLI) | payer MEDICARE, SELFPAY ==
[2019-10-08 19:24] VITALS: BMI 22.8
== END ==
PROVIDERS: Family Provider Internal Medicine; PCP Internal Medicine; Visit Provider Family Medicine
DX: L89.614 Pressure ulcer of right heel, stage 4 (principal); L89.313 Pressure ulcer of right buttock, stage 3
CPT/HCPCS: 11042; 87070; 87075; 87077; 87186; 87205; 97597

== ENCOUNTER → 2019-11-02 15:11 | Outpatient (CLI) | payer MEDICARE, SELFPAY ==
[2019-10-08 19:24] VITALS: BMI 22.8
== END ==
PROVIDERS: Family Provider Internal Medicine; PCP Internal Medicine; Visit Provider Family Medicine
DX: L89.614 Pressure ulcer of right heel, stage 4 (principal); L97.313 Non-pressure chronic ulcer of right ankle with necrosis of muscle; R60.0 Localized edema
CPT/HCPCS: 99214; 99215

== ENCOUNTER → 2019-11-09 15:40 | Outpatient (CLI) | payer MEDICARE, SELFPAY ==
[2019-10-08 19:24] VITALS: BMI 22.8
== END ==
PROVIDERS: Family Provider Internal Medicine; PCP Internal Medicine; Visit Provider Family Medicine
DX: L89.614 Pressure ulcer of right heel, stage 4 (principal); I73.9 Peripheral vascular disease, unspecified; L89.313 Pressure ulcer of right buttock, stage 3
CPT/HCPCS: 11043

== ENCOUNTER → 2019-11-23 14:17 | Outpatient (CLI) | payer MEDICARE, SELFPAY ==
[2019-10-08 19:24] VITALS: BMI 22.8
== END ==
PROVIDERS: Family Provider Internal Medicine; PCP Internal Medicine; Visit Provider Family Medicine
DX: L89.614 Pressure ulcer of right heel, stage 4 (principal); I73.9 Peripheral vascular disease, unspecified
CPT/HCPCS: 97597

== ENCOUNTER → 2019-11-30 13:04 | Outpatient (CLI) | payer MEDICARE, SELFPAY ==
[2019-10-08 19:24] VITALS: BMI 22.8
== END ==
PROVIDERS: Family Provider Internal Medicine; PCP Internal Medicine; Visit Provider Family Medicine
DX: L89.614 Pressure ulcer of right heel, stage 4 (principal); R60.0 Localized edema
CPT/HCPCS: 20220; 87070; 87075; 87077; 87147; 87186; 87205

== ENCOUNTER → 2019-12-08 12:28 | Outpatient (CLI) | payer MEDICARE, SELFPAY ==
[2019-10-08 19:24] VITALS: BMI 22.8
== END ==
PROVIDERS: Family Provider Internal Medicine; PCP Internal Medicine; Visit Provider Family Medicine
DX: L89.614 Pressure ulcer of right heel, stage 4 (principal); M86.471 Chronic osteomyelitis with draining sinus, right ankle and foot; R60.0 Localized edema; F01.50 Vascular dementia, unspecified severity, without behavioral disturbance, psychotic disturbance, mood disturbance, and anxiety
CPT/HCPCS: 99213; 99214

== ENCOUNTER 2019-12-08 16:13 | Inpatient (IN) | payer MEDICARE, SELFPAY ==
[2019-10-08 19:24] VITALS: BMI 22.8
[2019-12-08] VITALS (10 sets, daily range): BP systolic 93–124; BP diastolic 56–73; PULSE 69–87; RESP 16–18; TEMP 36.3–36.4; O2SAT 95–100; BMI 21.7
--- NOTE | 2019-12-08 16:26 | DI.RAD.S_ITS ---
PROCEDURE: XR FOOT RT 2V INDICATIONS: stage 4 wound w/ h/o osteomylitis. TECHNIQUE: 2 views of the foot were acquired. COMPARISON: None. FINDINGS: Bones: No fractures or dislocations. No suspicious bony lesions. No micaela erosive changes. No periosteal reaction. Soft tissues: No tibiotalar joint effusion. Achilles tendon appears normal. Soft tissue swelling noted concerning for infection cellulitis. No soft tissue gas. IMPRESSION: No micaela evidence of osteomyelitis. Plain film radiographs can be insensitive to osteomyelitis during the initial 15 days of the disease process. If there is clinical concern for osteomyelitis, then MRI or three-phase nuclear medicine bone scan should be considered for further evaluation. Dictated by: Massiel Lloyd MD, PhD on 12/08/2019 at 17:01 Approved by: Massiel Lloyd MD, PhD on 12/08/2019 at 17:02
--- NOTE | 2019-12-08 16:26 | DI.RAD.S_ITS ---
PROCEDURE: XR CHEST 1V INDICATIONS: suspected sepsis TECHNIQUE: One view of the chest was acquired. COMPARISON: [facility], CR, XR CHEST 1V, 10/08/2019, 13:33. FINDINGS: Surgical changes and devices: None. Lungs and pleura: Lungs are clear. No pleural effusions or pneumothorax. Mediastinum: Mediastinal contours appear normal. Heart size is normal. Bones and chest wall: No suspicious bony lesions. Overlying soft tissues appear unremarkable. IMPRESSION: No acute cardiopulmonary disease process. Dictated by: Massiel Lloyd MD, PhD on 12/08/2019 at 17:02 Approved by: Massiel Lloyd MD, PhD on 12/08/2019 at 17:02
[2019-12-08 16:49] LABS: Add Manual Diff / Slide Review NO; Basophils Absolute Auto 0 /uL (0-100); Basophils Percent Auto 0.5 % (0-2); Eosinophils Absolute Auto 300 /uL (0-450); Eosinophils Percent Auto 4.6 % (2-4); Hematocrit 39.3 % (41-53); Hemoglobin 13.1 g/dL (13.5-17.5); Lymphocytes Absolute Auto 1900 /uL (1100-4500); Lymphocytes Percent Auto 25.8 % (25-40); Mean Corpuscular HGB Conc 33.2 % (30-36); Mean Corpuscular Hemoglobin 29.3 PG (26-34); Mean Corpuscular Volume 88.2 fL (80-100); Monocytes Absolute Auto 600 /uL (0-900); Neutrophils Absolute Auto 4300 /uL (1500-7000); Neutrophils Percent Auto 60.1 % (50-75); Platelet Count 207 X10^3/uL (150-400); Red Blood Cell Count 4.46 X10^6/uL (4.5-5.9); Red Cell Distribution Width 16.2 % (11.6-14.8); White Blood Cell Count 7.2 X10^3/uL (4.5-11.0)
[2019-12-08 16:50] LABS: INR 1.1 (0.9-1.3); Prothrombin Time 12.9 SECONDS (10.1-12.7)
[2019-12-08 16:53] LABS: PTT Partial Thromboplastin Tim 30 SECONDS (26.4-36.2)
[2019-12-08 16:58] LABS: Lactate (Lactic Acid) 1.3 mmol/L (0.7-2.1)
[2019-12-08 17:01] LABS: Alanine Aminotransferase 14 IU/L (<50); Albumin 4.2 g/dL (3.5-5.0); Albumin Globulin Ratio 1.2 (1.0-2.8); Alkaline Phosphatase 107 U/L (38-126); Aspartate Aminotransferase 27 IU/L (17-59); BUN Creatinine Ratio 31.3 (6-22); Bilirubin Total 0.7 mg/dL (0.2-1.3); Blood Urea Nitrogen 25 mg/dL (9-20); C-Reactive Protein Quant 1.3 mg/dL (<1.0); Calcium 9.4 mg/dL (8.4-10.2); Carbon Dioxide 28 mmol/L (22-32); Chloride 102 mmol/L (98-107); Estimated Glomerular Filt Rate > 60.0 mL/min (>60); Globulin 3.4 g/dL (1.7-4.1); Glucose 81 mg/dL (80-110); HEMOLYSIS < 15 (0-50); Lipase 243 U/L (23-300); Potassium 3.5 mmol/L (3.4-5.1); Sodium 139 mmol/L (137-145); Total Protein 7.6 g/dL (6.3-8.2)
[2019-12-08 17:12] LABS: Erythrocyte Sedimentation Rate 26 MM/HR (0-15)
[2019-12-08 17:20] LABS: Procalcitonin < 0.05 ng/mL (<0.5)
[2019-12-08] MEDS: VANCOMYCIN 1,000 MG/200 ML PIGGYBACK 200 MG IV ×2 (17:36→21:36)
--- NOTE | 2019-12-08 18:23 | ED_ITS ---
HPI - Extremity Problem <DONALD Holley - Last Filed: 12/08/19 23:50> General Chief complaint: Extremity Problem,Nontraumatic Stated complaint: RIGHT FOOT INFECTION Time Seen by Provider: 12/08/19 16:15 Source: patient Mode of arrival: Wheelchair Limitations: no limitations History of Present Illness HPI Narrative: This is a 79-year-old male, nonsmoker, who presents to ED from [facility] after he was referred to ED by wound care clinic, Dr. 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 According to the Dr. High records and past diagnostic findings: Patient was hospitalized in 06/16/19 with confusion, lethargy and heel ulcer and treated with IV vancomycin for and SSA wound infection and cellulitis and discharged to with SNF on 06/19/19 with oral Doxycyclen. Then, the patient was treated again with dicloxacillin due to repeated swab shows same organism after the completion of doxycycline. The cellulitis and heel ulcer had not completely improved after the course of the above antibiotic medication treatment and repeated culture was obtained and showed MRSA, Enterococcus, E-coli. Patient then again treated with IV vancomycin and p.o. Levaquin for 2 weeks. 09/16/19 XR of calcaneous shows no evidence of osteomyelitis. 10/12/19 MRI of right ankle shows mild calcaneal cortical irregularity with calcaneal marrow signal grossly preserved. Non specific results. Diffused hindfoot and midfoot cellulitis were noted. The patient was treated with Bactrim DS for culture swab from buttock which grew MRSA, Klebsiella pneumoniae. 07/18/19 CT angiogram abdominal area of with lower extremity runoff demonstrates focal moderate grade stenosis within the right common iliac artery which may be hemodynamically significant. 11/30/2019 Bone tissue for pathology consistent with chronic osteomyelitis. Bone tissue for Gram stain showed no PMNs, cells, organisms. Aerobic culture grew MSSA. No growth from anaerobic culture. The heel ulcer has a small sinus opening to the heel that probes to bone. Dr. High discussed the patient's condition with ID specialist Dr. Vicky Fair and was recommended inpatient admission for vancomycin IV initiation and anticipate PICC line placement and consider orthopedic surgery and ID outpatient referral with offloading on right heel, wound care, increasing protein intake. The patient denies significant discomfort on right heel and he has a heel offloading boot today. Patient denies fever, chills, nausea or vomiting. Patient is oriented to place-hospital and person-self and his PCP, but not oriented to time. Related Data Home Medications Medication Instructions Recorded Confirmed aspirin 81 mg PO DAILY 12/15/18 12/08/19 cholecalciferol (vitamin D3) 1,000 unit PO DAILY 12/15/18 12/08/19 [Vitamin D3] cyanocobalamin (vitamin B-12) 500 mcg PO DAILY 12/15/18 12/08/19 [Vitamin B-12] acetaminophen [Tylenol Arthritis 650 mg PO TID 06/20/19 12/08/19 Pain] ascorbic acid (vitamin C) 500 mg PO DAILY 12/08/19 12/08/19 clotrimazole 1 applic TOPICAL TID PRN 12/08/19 12/08/19 Previous Rx's Medication Instructions Recorded tamsulosin [Flomax] 0.4 mg PO DAILY #30 cap 01/26/19 quetiapine [Seroquel] 12.5 mg PO BID #30 tab 06/19/19 furosemide 40 mg PO DAILY #0 tab 10/11/19 Allergies Allergy/AdvReac Type Severity Reaction Status Date / Time hydromorphone [From Dilaudid] Allergy Verified 06/16/19 18:02 Review of Systems <DONALD Holley - Last Filed: 12/08/19 23:50> Review of Systems Narrative: General: Denies fever, chills, fatigue, malaise, sweats. HEENT: Denies sinus pain, ear pain, sore throat, difficulty swallowing, dizziness. Respiratory: Denies dyspnea, cough, wheezing, hemoptysis, sputum. Cardiovascular: Denies chest pain, palpitations, orthopnea, edema. Gastrointestinal: Denies nausea, vomiting, abdominal pain, diarrhea, constipat ion, melena. : Denies dysuria, frequency, incontinence, hematuria, urinary retention. Musculoskeletal: See HPI Skin: See HPI Neurologic: Denies weakness, headache, numbness, change in speech, confusion, seizures, incoordination. Psychiatric: No concerning psychosocial issues. 12-point review of systems is negative except for those stated above. 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) Dementia with behavioral disturbance (Acute) History of prostate cancer (Chronic) HTN (hypertension) (Chronic) Hypokalemia (Acute) Incontinence (Chronic) Lymphedema of right lower extremity (Acute) MRSA cellulitis of right foot (Acute) Recurrent urinary tract infection (Acute) Stage IV pressure ulcer of heel (Acute) Surgical History History of prostatectomy (Resolved) History of squamous cell carcinoma excision (Resolved) Family History Other Family history non-contributory Social History household members: none and other Smoking Status: Never smoker alcohol intake: current Smoking Status: Never smoker alcohol intake frequency: a few times a week Substance Use Type: does not use Exam <DONALD Holley - Last Filed: 12/08/19 23:50> Narrative Exam Narrative: GEN: Alert, oriented x 3, well nourished, and in no acute distress. Head: Normal cephalic, atraumatic. No scalp or temporal tenderness, palpable mass or rash. EYES: Pupils are equal, round, and reactive to light and accommodation. Extraocular muscles are intact bilaterally. There is no subconjunctival hemorrhage, exudate and sclera non-icteric. Neck: Trachea in midline. No JVD, non-tender without lymphadenopathy. No masses or thyroid megaly. Supple, non-tender and no meningeal signs. CARDIAC: Normal regular rate and rhythm without murmurs, gallops, or rubs. No chest wall tenderness. Capillary refill is less than 3 seconds. RESPIRATORY: Lungs are clear to auscultate bilaterally. No cough, wheezes, rales, or rhonchi. No stridor, respiratory distress, increase work of breathing, or accessary muscle used. ABD: Abdomen soft, nontender and non-distended. No guarding or rebound tenderness to palpate. Bowel sounds are normal in all 4 quadrants. There is no palpable masses or organomegaly. SKIN: Warm, dry, pale color. No erythema, lesions or rash over visible areas. R heel ulcer. R heel has foam dressing on with off loading boot. Heel ulcer <0.5cm in size and covered wtih dressing material without purulent dressing which has been changed today at the wound care clinic. Surrounding skin without erythematous or warmth. BACK: Nontender without deformity or crepitance. No flank tenderness. NEUROLOGICAL: Alert and oriented to time and person-self and his PCP. No facial droops, dysphasia. PSYCHIATRIC: Normal affect and normal behaviors during the examination. Initial Vital Signs Initial Vital Signs: Vital Signs Pulse Rate 72 12/08/19 16:30 Extrem Right lower extremity: normal capillary refill (about 3 seconds), edema Details: non-pitting and foot (heel ulcer <0.5cm covered with dressing material and foam dressing) Details: toes with normal ROM, edema (R lower extremity, cool to touch, pale), vascular exam Details: dorsalis pedis pulse present and motor- sensory exam Details: light-touch normal Left lower extremity: foot Details: normal to inspection, toes with normal ROM, no edema and vascular exam Details: dorsalis pedis pulse present; no tenderness <Eneida Enriquez DO - Last Filed: 12/09/19 07:08> Initial Vital Signs Initial Vital Signs: Vital Signs Pulse Rate 72 12/08/19 16:30 Scores <GERARDO HolleyP - Last Filed: 12/08/19 23:50> GCS Mildred coma scale eye opening: Spontaneous Mildred coma scale verbal response: Orientated Mildred coma scale motor response: Obey commands Greenfield coma scale total score: 15 Course <GERARDO HolleyP - Last Filed: 12/08/19 23:50> Orders Ordered: Acetaminophen (Tylenol) 650 mg PO Q6HR PRN PRN Reason: Fever/Mild Pain (1-3) Al Hydrox/Mg Hydrox/Simethicone (Maalox Plus) 30 ml PO Q6HR PRN PRN Reason: Dyspepsia Aspirin (Aspirin Ec) 81 mg PO DAILY [facility] Bisacodyl (Dulcolax) 10 mg MS DAILY PRN PRN Reason: Constipation Calcium Carbonate (Tums) 1,000 mg PO Q4HR PRN PRN Reason: Dyspepsia Clotrimazole (Lotrimin 1% Cream) 1 applic TOP TID PRN PRN Reason: groin rash Cyanocobalamin (Vitamin B-12) 500 mcg PO DAILY [facility] Docusate Sodium (Colace) 100 mg PO BID PRN PRN Reason: Constipation Furosemide (Lasix) 40 mg PO DAILY [facility] Heparin Sodium (Porcine) (Heparin Flush (Cl/Picc/Mid)) 50 unit IV BID [facility] Last Admin: 12/08/19 21:46 Dose: Not Given Documented by: LENARD Heparin Sodium (Porcine) (Heparin) 5,000 unit SUBCUT BID [facility] Last Admin: 12/08/19 21:36 Dose: 5,000 unit Documented by: LENARD Vancomycin HCl (Vancomycin) 1,000 mg in 200 mls @ 200 mls/hr IV Q12H [facility] Last Admin: 12/08/19 21:36 Dose: 200 mls/hr Documented by: LENARD Ciprofloxacin (Cipro) 400 mg in 200 mls @ 200 mls/hr IV Q12H [facility] Last Admin: 12/08/19 23:10 Dose: 200 mls/hr Documented by: LENARD Potassium Chloride 40 meq/ (Sodium Chloride) 520 mls @ 130 mls/hr IV NOW ONE Stop: 12/09/19 10:13 Last Admin: 12/09/19 06:37 Dose: 130 mls/hr Documented by: CHARLENE Cosigned by: JEANNIE Naloxone HCl (Narcan) 0.2 mg IV Q2MIN PRN PRN Reason: Opiate Reversal Ondansetron HCl (Zofran) 4 mg IV Q8HR PRN PRN Reason: Nausea And Vomiting Quetiapine Fumarate (Seroquel) 12.5 mg PO BID [facility] Last Admin: 12/08/19 21:36 Dose: 12.5 mg Documented by: LENARD Tamsulosin HCl (Flomax) 0.4 mg PO DAILY [facility] Vancomycin HCl (Vancomycin Trough) 1 request [facility] [address]30 [facility] Stop: 12/10/19 08:31 Discontinued Medications Vancomycin HCl (Vancomycin) 1,000 mg in 200 mls @ 200 mls/hr IV NOW ONE Stop: 12/08/19 18:14 Last Infusion: 12/08/19 18:41 Dose: 0 mls/hr Documented by: Admin: 12/08/19 17:36 Dose: 200 mls/hr Documented by: YOSEF Sodium Chloride (Normal Saline 0.9%) 1,000 mls @ 150 mls/hr IV CONT [facility] Stop: 12/08/19 19:42 Last Infusion: 12/08/19 19:00 Dose: 0 mls/hr Documented by: Admin: 12/08/19 18:35 Dose: 150 mls/hr Documented by: YOSEF Sodium Chloride (Normal Saline 0.9%) 1,000 mls @ 100 mls/hr IV CONT [facility] Last Admin: 12/08/19 20:08 Dose: 100 mls/hr Documented by: LENARD Vital Signs Vital signs: Vital Signs - 8 hr 12/08/19 16:30 12/08/19 16:33 12/08/19 16:42 Temperature 97.5 F L Pulse Rate 87 72 Pulse Rate [Left Dorsalis Pedis] 72 Respiratory Rate 18 18 Blood Pressure 97/66 Blood Pressure [Left Arm] 118/71 Pulse Oximetry 100 100 12/08/19 17:30 Temperature Pulse Rate 72 Pulse Rate [Left Dorsalis Pedis] Respiratory Rate 18 Blood Pressure Blood Pressure [Left Arm] 96/59 L Pulse Oximetry <Eneida Enriquez, - Last Filed: 12/09/19 07:08> Orders Ordered: Acetaminophen (Tylenol) 650 mg PO Q6HR PRN PRN Reason: Fever/Mild Pain (1-3) Al Hydrox/Mg Hydrox/Simethicone (Maalox Plus) 30 ml PO Q6HR PRN PRN Reason: Dyspepsia Aspirin (Aspirin Ec) 81 mg PO DAILY [facility] Bisacodyl (Dulcolax) 10 mg MS DAILY PRN PRN Reason: Constipation Calcium Carbonate (Tums) 1,000 mg PO Q4HR PRN PRN Reason: Dyspepsia Clotrimazole (Lotrimin 1% Cream) 1 applic TOP TID PRN PRN Reason: groin rash Cyanocobalamin (Vitamin B-12) 500 mcg PO DAILY [facility] Docusate Sodium (Colace) 100 mg PO BID PRN PRN Reason: Constipation Furosemide (Lasix) 40 mg PO DAILY [facility] Heparin Sodium (Porcine) (Heparin Flush (Cl/Picc/Mid)) 50 unit IV BID [facility] Last Admin: 12/08/19 21:46 Dose: Not Given Documented by: LENARD Heparin Sodium (Porcine) (Heparin) 5,000 unit SUBCUT BID [facility] Last Admin: 12/08/19 21:36 Dose: 5,000 unit Documented by: LENARD Vancomycin HCl (Vancomycin) 1,000 mg in 200 mls @ 200 mls/hr IV Q12H [facility] Last Admin: 12/08/19 21:36 Dose: 200 mls/hr Documented by: LENARD Ciprofloxacin (Cipro) 400 mg in 200 mls @ 200 mls/hr IV Q12H [facility] Last Admin: 12/08/19 23:10 Dose: 200 mls/hr Documented by: LENARD Potassium Chloride 40 meq/ (Sodium Chloride) 520 mls @ 130 mls/hr IV NOW ONE Stop: 12/09/19 10:13 Last Admin: 12/09/19 06:37 Dose: 130 mls/hr Documented by: CHARLENE Cosigned by: JEANNIE Naloxone HCl (Narcan) 0.2 mg IV Q2MIN PRN PRN Reason: Opiate Reversal Ondansetron HCl (Zofran) 4 mg IV Q8HR PRN PRN Reason: Nausea And Vomiting Quetiapine Fumarate (Seroquel) 12.5 mg PO BID [facility] Last Admin: 12/08/19 21:36 Dose: 12.5 mg Documented by: LENARD Tamsulosin HCl (Flomax) 0.4 mg PO DAILY [facility] Vancomycin HCl (Vancomycin Trough) 1 request [facility] 0651 [facility] Stop: 12/10/19 08:31 Discontinued Medications Vancomycin HCl (Vancomycin) 1,000 mg in 200 mls @ 200 mls/hr IV NOW ONE Stop: 12/08/19 18:14 Last Infusion: 12/08/19 18:41 Dose: 0 mls/hr Documented by: Admin: 12/08/19 17:36 Dose: 200 mls/hr Documented by: YOSEF Sodium Chloride (Normal Saline 0.9%) 1,000 mls @ 150 mls/hr IV CONT [facility] Stop: 12/08/19 19:42 Last Infusion: 12/08/19 19:00 Dose: 0 mls/hr Documented by: Admin: 12/08/19 18:35 Dose: 150 mls/hr Documented by: YOSEF Sodium Chloride (Normal Saline 0.9%) 1,000 mls @ 100 mls/hr IV CONT [facility] Last Admin: 12/08/19 20:08 Dose: 100 mls/hr Documented by: LENARD Vital Signs Vital signs: Vital Signs - 8 hr 12/08/19 16:30 12/08/19 16:33 12/08/19 16:42 Temperature 97.5 F L Pulse Rate 87 72 Pulse Rate [Left Dorsalis Pedis] 72 Respiratory Rate 18 18 Blood Pressure 97/66 Blood Pressure [Left Arm] 118/71 Pulse Oximetry 100 100 12/08/19 17:30 Temperature Pulse Rate 72 Pulse Rate [Left Dorsalis Pedis] Respiratory Rate 18 Blood Pressure Blood Pressure [Left Arm] 96/59 L Pulse Oximetry MDM - Extremity (Nontraumatic) <DONALD Holley - Last Filed: 12/08/19 23:50> Differential Diagnosis Differential diagnosis: Likely other (Osteomyelitis, Stage IV heel ulcer) Medical Records Attestation: I reviewed the patient's medical records. Lab Data Attestation: I reviewed the patient's lab results. Result diagrams: 12/09/19 05:25 12/09/19 05:25 Labs: Lab Results 12/08/19 12/08/19 12/08/19 Range/Units 16:35 16:35 16:35 WBC 7.2 (4.5-11.0) X10^3/uL RBC 4.46 L (4.5-5.9) X10^6/uL Hgb 13.1 L (13.5-17.5) g/dL Hct 39.3 L (41-53) % MCV 88.2 (80-100) fL MCH 29.3 (26-34) PG MCHC 33.2 (30-36) % RDW 16.2 H (11.6-14.8) % Plt Count 207 (150-400) X10^3/uL Neut % (Auto) 60.1 (50-75) % Lymph % (Auto) 25.8 (25-40) % [place] % (Auto) 9.0 (3-14) % Eos % (Auto) 4.6 H (2-4) % Baso % (Auto) 0.5 (0-2) % Neut # (Auto) 4300 (4651-7960) /uL Lymph # (Auto) 1900 (0310-5307) /uL [place] # (Auto) 600 (0-900) /uL Eos # (Auto) 300 (0-450) /uL Baso # (Auto) 0 (0-100) /uL ESR 26 H (0-15) MM/HR PT 12.9 H (10.1-12.7) SECONDS INR 1.1 (0.9-1.3) APTT 30 D (26.4-36.2) SECONDS Sodium (137-145) mmol/L Potassium (3.4-5.1) mmol/L Chloride (98-107) mmol/L Carbon Dioxide (22-32) mmol/L BUN (9-20) mg/dL Creatinine (0.66-1.25) mg/dL Estimated GFR (>60) mL/min BUN/Creatinine Ratio (6-22) Glucose (80-110) mg/dL Lactate (0.7-2.1) mmol/L Calcium (8.4-10.2) mg/dL Magnesium (1.6-2.3) mg/dL Total Bilirubin (0.2-1.3) mg/dL AST (17-59) IU/L ALT (<50) IU/L Alkaline Phosphatase (38-126) U/L C-Reactive Protein (<1.0) mg/dL Total Protein (6.3-8.2) g/dL Albumin (3.5-5.0) g/dL Globulin (1.7-4.1) g/dL Albumin/Globulin Ratio (1.0-2.8) Lipase (23-300) U/L Procalcitonin < 0.05 (<0.5) ng/mL 12/08/19 12/08/19 12/08/19 Range/Units 16:35 16:35 16:35 WBC (4.5-11.0) X10^3/uL RBC (4.5-5.9) X10^6/uL Hgb (13.5-17.5) g/dL Hct (41-53) % MCV (80-100) fL MCH (26-34) PG MCHC (30-36) % RDW (11.6-14.8) % Plt Count (150-400) X10^3/uL Neut % (Auto) (50-75) % Lymph % (Auto) (25-40) % [place] % (Auto) (3-14) % Eos % (Auto) (2-4) % Baso % (Auto) (0-2) % Neut # (Auto) (8676-3291) /uL Lymph # (Auto) (2216-8086) /uL [place] # (Auto) (0-900) /uL Eos # (Auto) (0-450) /uL Baso # (Auto) (0-100) /uL ESR (0-15) MM/HR PT (10.1-12.7) SECONDS INR (0.9-1.3) APTT (26.4-36.2) SECONDS Sodium 139 (137-145) mmol/L Potassium 3.5 (3.4-5.1) mmol/L Chloride 102 (98-107) mmol/L Carbon Dioxide 28 (22-32) mmol/L BUN 25 H (9-20) mg/dL Creatinine 0.80 (0.66-1.25) mg/dL Estimated GFR > 60.0 (>60) mL/min BUN/Creatinine Ratio 31.3 H (6-22) Glucose 81 (80-110) mg/dL Lactate 1.3 (0.7-2.1) mmol/L Calcium 9.4 (8.4-10.2) mg/dL Magnesium 2.0 (1.6-2.3) mg/dL Total Bilirubin 0.7 (0.2-1.3) mg/dL AST 27 (17-59) IU/L ALT 14 (<50) IU/L Alkaline Phosphatase 107 (38-126) U/L C-Reactive Protein 1.3 H (<1.0) mg/dL Total Protein 7.6 (6.3-8.2) g/dL Albumin 4.2 (3.5-5.0) g/dL Globulin 3.4 (1.7-4.1) g/dL Albumin/Globulin Ratio 1.2 (1.0-2.8) Lipase 243 (23-300) U/L Procalcitonin (<0.5) ng/mL Imaging Data Chest x-ray: Radiologist's Impression: [address] [address] XRay Report Signed Patient: Jimi Montes CMR#: [id number] : 8Acct:[id number] Age/Sex: 79 / MDate of Service: 12/08/19 Loc: ED Accession Number: [id number] Procedure: XR chest 1V Ordering Provider: Stanislaw Xie PROCEDURE: XR CHEST 1V INDICATIONS: suspected sepsis TECHNIQUE: One view of the chest was acquired. COMPARISON: [facility], , XR CHEST 1V, 10/08/2019, 13:33. FINDINGS: Surgical changes and devices: None. Lungs and pleura: Lungs are clear. No pleural effusions or pneumothorax. Mediastinum: Mediastinal contours appear normal. Heart size is normal. Bones and chest wall: No suspicious bony lesions. Overlying soft tissues appear unremarkable. IMPRESSION: No acute cardiopulmonary disease process. Dictated by: Massiel Lloyd MD, PhD on 12/08/2019 at 17:02 Approved by: Massiel Lloyd MD, PhD on 12/08/2019 at 17:02 XR-Foot RT: Radiologist's Impression: [address] [address] XRay Report Signed Patient: Jimi Montes CMR#: [id number] : 8Acct:[id number] Age/Sex: 79 / MDate of Service: 12/08/19 Loc: ED Accession Number: [id number] Procedure: XR foot RT 2V Ordering Provider: Stanislaw Xie PROCEDURE: XR FOOT RT 2V INDICATIONS: stage 4 wound w/ h/o osteomylitis. TECHNIQUE: 2 views of the foot were acquired. COMPARISON: None. FINDINGS: Bones: No fractures or dislocations. No suspicious bony lesions. No micaela erosive changes. No periosteal reaction. Soft tissues: No tibiotalar joint effusion. Achilles tendon appears normal. Soft tissue swelling noted concerning for infection cellulitis. No soft tissue gas. IMPRESSION: No micaela evidence of osteomyelitis. Plain film radiographs can be insensitive to osteomyelitis during the initial 15 days of the disease process. If there is clinical concern for osteomyelitis, then MRI or three-phase nuclear medicine bone scan should be considered for further evaluation. Dictated by: Massiel Lloyd MD, PhD on 12/08/2019 at 17:01 Approved by: Massiel Lloyd MD, PhD on 12/08/2019 at 17:02 [facility] Narrative Medical decision making narrative: This is a 79 year old male who presents to ED after he was referred by wound care physician Dr. High with concerns for chronic osteomyelitis with recent bone tissue pathology report on 11/30/2019. According to ID specialist Dr. Fair, it was suggested that patient to be treated with IV vancomycin with anticipation of PICC line placement and orthopedist referral. Patient is afebrile and denies fever or chills. Patient denies discomfort on right heel. Dressing on right heel is clean and intact without purulent discharge after this has been changed at the clinic today. Right leg has moderate nonpitting edema without erythema or warmth to touch. Patient has been offloading right heel while using special boot. Today's foot x-ray does not show obvious evidence of osteomyelitis. Chest x-ray is negative. Negative for leukocytosis but elevated ESR of 15 and CRP of 1.3. Patient has chronic anemia in the past and today's H&H is 13.1/39.3 which is better than previous times. normal kidney function and negative lactate. Patient was given 1st dose of vancomycin 1 g while in ED with maintenance fluid infusion of normal saline. Findings were discussed with Dr. Thurston and he kindly accepted the patient's care for observation admission. <Eneida Enriquez, DO - Last Filed: 12/09/19 07:08> Lab Data Labs: Lab Results 12/08/19 12/08/19 12/08/19 Range/Units 16:35 16:35 16:35 WBC 7.2 (4.5-11.0) X10^3/uL RBC 4.46 L (4.5-5.9) X10^6/uL Hgb 13.1 L (13.5-17.5) g/dL Hct 39.3 L (41-53) % MCV 88.2 (80-100) fL MCH 29.3 (26-34) PG MCHC 33.2 (30-36) % RDW 16.2 H (11.6-14.8) % Plt Count 207 (150-400) X10^3/uL Neut % (Auto) 60.1 (50-75) % Lymph % (Auto) 25.8 (25-40) % [place] % (Auto) 9.0 (3-14) % Eos % (Auto) 4.6 H (2-4) % Baso % (Auto) 0.5 (0-2) % Neut # (Auto) 4300 (8166-1390) /uL Lymph # (Auto) 1900 (5666-2229) /uL [place] # (Auto) 600 (0-900) /uL Eos # (Auto) 300 (0-450) /uL Baso # (Auto) 0 (0-100) /uL ESR 26 H (0-15) MM/HR PT 12.9 H (10.1-12.7) SECONDS INR 1.1 (0.9-1.3) APTT 30 D (26.4-36.2) SECONDS Sodium (137-145) mmol/L Potassium (3.4-5.1) mmol/L Chloride (98-107) mmol/L Carbon Dioxide (22-32) mmol/L BUN (9-20) mg/dL Creatinine (0.66-1.25) mg/dL Estimated GFR (>60) mL/min BUN/Creatinine Ratio (6-22) Glucose (80-110) mg/dL Lactate (0.7-2.1) mmol/L Calcium (8.4-10.2) mg/dL Magnesium (1.6-2.3) mg/dL Total Bilirubin (0.2-1.3) mg/dL AST (17-59) IU/L ALT (<50) IU/L Alkaline Phosphatase (38-126) U/L C-Reactive Protein (<1.0) mg/dL Total Protein (6.3-8.2) g/dL Albumin (3.5-5.0) g/dL Globulin (1.7-4.1) g/dL Albumin/Globulin Ratio (1.0-2.8) Lipase (23-300) U/L Procalcitonin < 0.05 (<0.5) ng/mL 12/08/19 12/08/19 12/08/19 Range/Units 16:35 16:35 16:35 WBC (4.5-11.0) X10^3/uL RBC (4.5-5.9) X10^6/uL Hgb (13.5-17.5) g/dL Hct (41-53) % MCV (80-100) fL MCH (26-34) PG MCHC (30-36) % RDW (11.6-14.8) % Plt Count (150-400) X10^3/uL Neut % (Auto) (50-75) % Lymph % (Auto) (25-40) % [place] % (Auto) (3-14) % Eos % (Auto) (2-4) % Baso % (Auto) (0-2) % Neut # (Auto) (9315-5175) /uL Lymph # (Auto) (5675-7366) /uL [place] # (Auto) (0-900) /uL Eos # (Auto) (0-450) /uL Baso # (Auto) (0-100) /uL ESR (0-15) MM/HR PT (10.1-12.7) SECONDS INR (0.9-1.3) APTT (26.4-36.2) SECONDS Sodium 139 (137-145) mmol/L Potassium 3.5 (3.4-5.1) mmol/L Chloride 102 (98-107) mmol/L Carbon Dioxide 28 (22-32) mmol/L BUN 25 H (9-20) mg/dL Creatinine 0.80 (0.66-1.25) mg/dL Estimated GFR > 60.0 (>60) mL/min BUN/Creatinine Ratio 31.3 H (6-22) Glucose 81 (80-110) mg/dL Lactate 1.3 (0.7-2.1) mmol/L Calcium 9.4 (8.4-10.2) mg/dL Magnesium 2.0 (1.6-2.3) mg/dL Total Bilirubin 0.7 (0.2-1.3) mg/dL AST 27 (17-59) IU/L ALT 14 (<50) IU/L Alkaline Phosphatase 107 (38-126) U/L C-Reactive Protein 1.3 H (<1.0) mg/dL Total Protein 7.6 (6.3-8.2) g/dL Albumin 4.2 (3.5-5.0) g/dL Globulin 3.4 (1.7-4.1) g/dL Albumin/Globulin Ratio 1.2 (1.0-2.8) Lipase 243 (23-300) U/L Procalcitonin (<0.5) ng/mL Discharge Plan Departure Patient Disposition: Admitted as Observation Clinical Impression: Osteomyelitis Qualifiers: Osteomyelitis type: other chronic Osteomyelitis location: foot Laterality: right Qualified Code(s): M86.671 - Other chronic osteomyelitis, right ankle and foot Discharge Date/Time: 12/08/19 19:00 Admit Date/Time: 12/08/19 17:59 Admit Provider: Henry Thurston
[2019-12-08] MEDS: SODIUM CHLORIDE 0.9% 1,000 ML 150 ML IV (18:35)
--- NOTE | 2019-12-08 19:48 | P.HP_ITS ---
History of Present Illness History of Present Illness Date Patient Seen: 12/08/19 Time Patient Seen: 19:45 Chief complaint: RIGHT FOOT INFECTION Narrative: Mr. Jimi Montes is an 79-year-old male patient who resides at [facility] living and has a history significant for stage IV right heel ulcer followed by wound care, recurrent UTI with history of ESBL infection, hypertension, dementia with behavioral and cognitive impairment, prostate cancer status post prostatectomy and chemotherapy with inguinal node dissection, bowel and bladder incontinence, neuropathy and right lower extremity lymphedema who was sent to the hospital by Dr. High for osteomyelitis. The patient has been receiving routine care for a nonhealing right heel ulcer at the wound care clinic where cultures and bone biopsy were obtained on 11/30/2019. Per clinic documentation cultures demonstrate chronic osteomyelitis with MSSA. Patient is a poor historian related to dementia with cognitive impairment. He is able state he is in the hospital for wound infection but cannot state the date. At present he denies complaints of pain. He denies complaints of fevers or chills, headaches or dizziness, nasal congestion or sore throat. He denies chest pain or palpitations, shortness of breath cough or wheezing. When asked about abdominal pain he indicates ?that's another thing? but cannot clarify his meaning. He denies nausea or vomiting and cannot state when his last bowel mo vement was. He describes occasional pain on urination. The patient is nonweightbearing related to chronic ulcer right foot using an offloading boot and wheelchair. He has chronic lymphedema of the right leg with use of compression wrap. Upon arrival to the ER the patient's temperature 97.5?, heart rate of 87, blood pressure 97/66, respirations of 18 saturating 100% on room air. X-ray of the f oot is obtained finding no evidence of osteo myelitis ever noted low sensitivity examine the 1st 15 days by radiology. X-ray of the chest was obtained which shows no acute cardiopulmonary processes. On laboratory analysis the patient has a white count of 7.2, hemoglobin of 13.1, hematocrit of 39.3, platelets of 207. His PT is 12.9 an INR of 1.1 and PTT of 30. His electrolytes are within range with a BUN of 25 and creatinine of 0.8. His nonfasting glucose is 81. He has an ESR 26, CRP of 1.3 and procalcitonin is less than 0.05 and a lactic acid of 1.3. Urinalysis is obtained which shows positive leukocyte esterase, positive WBCs, trace blood and many bacteria. Patient has a history of prior ESBL UTI. In the ER the patient started on IV fluid normal saline 150 cc/hour given initial dose of vancomycin 1000 mg IV. The patient is admitted to the medicine service for treatment of osteomyelitis. 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 (Acute) Dementia with behavioral disturbance (Acute) History of prostate cancer (Chronic) HTN (hypertension) (Chronic) Hypokalemia (Acute) Incontinence (Chronic) Lymphedema of right lower extremity (Acute) MRSA cellulitis of right foot (Acute) Recurrent urinary tract infection (Acute) Stage IV pressure ulcer of heel (Acute) Surgical History (Updated 12/08/19 @ 21:02 by DONALD Pagan) History of prostatectomy (Resolved) History of squamous cell carcinoma excision (Resolved) Family & Social History Family History Other Family history non-contributory Family history unavailable: Yes (Patient is unable to provide information on family medical history.) Social History: household members other Safety & Behavioral: Feels Safe in Current Yes Environment Tobacco & Substance use: Smoking Status Never smoker alcohol intake current alcohol intake frequency a few times a week Substance Use Type does not use Comment: The patient is a poor historian with impaired recall. He has been living at [facility]. He is but not currently living with his . Family medical history is unable to be obtained due to cognitive impairment. Smoking: The patient reports having never smoked Alcohol: Patient endorses consuming occasional alcohol. Substance use: Patient denies recreational pharmaceuticals, herbal or cannabis products. Advanced directive: A POLST form accompanies the patient from his care [facility]. Document indicates the patient is FULL CODE and designates his Berna Montes to be his surrogate decision maker. Meds Home Medications and Allergies Home Medications Medication Instructions Recorded Confirmed Type aspirin 81 mg PO DAILY 12/15/18 12/08/19 History cholecalciferol (vitamin D3) 1,000 unit PO DAILY 12/15/18 12/08/19 History [Vitamin D3] cyanocobalamin (vitamin B-12) 500 mcg PO DAILY 12/15/18 12/08/19 History [Vitamin B-12] tamsulosin [Flomax] 0.4 mg PO DAILY #30 cap 01/26/19 12/08/19 Rx quetiapine [Seroquel] 12.5 mg PO BID #30 tab 06/19/19 12/08/19 Rx acetaminophen [Tylenol Arthritis 650 mg PO TID 06/20/19 12/08/19 History Pain] furosemide 40 mg PO DAILY #0 tab 10/11/19 12/08/19 Rx ascorbic acid (vitamin C) 500 mg PO DAILY 12/08/19 12/08/19 History clotrimazole 1 applic TOPICAL TID PRN 12/08/19 12/08/19 History Allergies Allergy/AdvReac Type Severity Reaction Status Date / Time hydromorphone [From Dilaudid] Allergy Verified 06/16/19 18:02 Review of Systems Review of Systems Narrative: All systems reviewed within the limitations of the patient's cognitive status and found unremarkable under discussed in the HPI above. Exam Vital Signs (past 8 hours): - 12/08/19 16:30 12/08/19 16:33 12/08/19 16:42 Temperature 97.5 F L Pulse Rate 87 72 Pulse Rate [Left Dorsalis Pedis] 72 Respiratory Rate 18 18 Blood Pressure 97/66 Blood Pressure [Left Arm] 118/71 Pulse Oximetry 100 100 12/08/19 17:30 12/08/19 18:07 12/08/19 18:46 Temperature Pulse Rate 72 70 70 Pulse Rate [Left Dorsalis Pedis] Respiratory Rate 18 16 16 Blood Pressure Blood Pressure [Left Arm] 96/59 L 93/61 124/73 Pulse Oximetry 98 Oxygen Delivery Method Room Air Narrative Exam Narrative: General: Well developed chronically ill-appearing elderly male semi recumbent in bed in no acute distress. HEENT: Normocephalic, atraumatic. LINDA, EOMs intact, conjunctiva is clear, sclerae are anicteric, no rhinorrhea, oral mucous membranes moist and pink. Neck: Supple, no JVD, no thyromegaly. Lymph nodes: No cervical or supraclavicular lymphadenopathy. Cardiovascular: Regular rate and rhythm, S1-S2 without murmurs, rubs, or gallops. 2+ pitting edema right lower extremity. Pulmonary: Symmetrical movement, good tidal volume, clear to auscultation bilaterally, no coarseness crackles or wheezing, no cough present. Abdomen: Soft, bowel sounds present, non-tender, non-distended. No hepatosplenomegaly or masses appreciated. Extremities: Right lower extremity modertate lymphedema without redness or warmth, 3 mm ulcer plantar surface of the calcaneus. Lymphedema the right foot and right lower extremity, left lower extremity slightly dusky appearing with 2+ dorsalis pedis pulse. Skin: Normal temperature, turgor, and texture; no rash, ulcers, or subcutaneous nodules appreciated. Neurological: Alert and oriented to person and place only, cranial nerves 2-12 grossly intact, neuropathy bilateral lower extremities Psychiatric: Cooperative with impaired cognition, tangental and circular thought, perseveration, short-term memory recall deficit, Objective Labs Result Diagrams: 12/08/19 16:35 12/08/19 16:35 Labs: Laboratory Results - last 24 hr 12/08/19 12/08/19 12/08/19 16:35 16:35 16:35 WBC 7.2 RBC 4.46 L Hgb 13.1 L Hct 39.3 L MCV 88.2 MCH 29.3 MCHC 33.2 RDW 16.2 H Plt Count 207 Neut % (Auto) 60.1 Lymph % (Auto) 25.8 [place] % (Auto) 9.0 Eos % (Auto) 4.6 H Baso % (Auto) 0.5 Neut # (Auto) 4300 Lymph # (Auto) 1900 [place] # (Auto) 600 Eos # (Auto) 300 Baso # (Auto) 0 ESR 26 H PT 12.9 H INR 1.1 APTT 30 D Sodium Potassium Chloride Carbon Dioxide BUN Creatinine Estimated GFR BUN/Creatinine Ratio Glucose Lactate Calcium Total Bilirubin AST ALT Alkaline Phosphatase C-Reactive Protein Total Protein Albumin Globulin Albumin/Globulin Ratio Lipase Procalcitonin < 0.05 12/08/19 12/08/19 16:35 16:35 WBC RBC Hgb Hct MCV MCH MCHC RDW Plt Count Neut % (Auto) Lymph % (Auto) [place] % (Auto) Eos % (Auto) Baso % (Auto) Neut # (Auto) Lymph # (Auto) [place] # (Auto) Eos # (Auto) Baso # (Auto) ESR PT INR APTT Sodium 139 Potassium 3.5 Chloride 102 Carbon Dioxide 28 BUN 25 H Creatinine 0.80 Estimated GFR > 60.0 BUN/Creatinine Ratio 31.3 H Glucose 81 Lactate 1.3 Calcium 9.4 Total Bilirubin 0.7 AST 27 ALT 14 Alkaline Phosphatase 107 C-Reactive Protein 1.3 H Total Protein 7.6 Albumin 4.2 Globulin 3.4 Albumin/Globulin Ratio 1.2 Lipase 243 Procalcitonin Assessment & Plan Assessment & Plan narrative: This is an 79-year-old male patient who was sent to the hospital for treatment of chronic wound in right heel treated with multiple course of doxycycline. Wound and bone cultures taken 11/30/2019 demonstrating Staph aureus infection. Patient also the has urinary tract infection with a hi story of ESBL. Patient is on contact isolation. 1. Acute osteomyelitis with chronic nonhealing right heel wound, present on admission, active. -patient reports his having right heel wound for 3 years, has been under the care of Dr. High at the wound care clinic. -laboratory findings ESR-26, CRP-1.3, lactic acid-1.3, procalcitonin less than 0.05. -wound culture cultures taken on 11/30/2019 find MRSA failing 2 courses of doxycycline treatment. -bone culture obtained the same day is not available for review but reported as same organism. -MRI taking 10/12/2019 was negative for osteomyelitis at that time. -ordered vancomycin 1000 mg IV every 12 hours for 6 week course with pharmacy to dose. -ordered PICC line placement. 2. Chronic nonhealing wound right heel, present on admission, active -small 3 mm wound right heel, without drainage or evidence of cellulitis, no pain secondary to chemo induced neuropathy. - pressure ulcer right heel stage IV per evaluation by Dr. High. -requested consult by wound care for continued treatment. -strict nonweightbearing status right lower extremity. 3. Urinary tract infection, acute, recurrent, present on admission, active -history of recurrent urinary tract infections, status post prostatectomy with urinary incontinence, patient reports ?pinching pain? with voiding. -urinalysis positive for leukocyte esterase, WBCs 30-100, many bacteria trace blood, reflex to culture. -most recent urine culture in September demonstrates ESBL E coli. -ordered ciprofloxacin 400 mg IV every 12 hours based on prior sensitivities. 4. Acute dehydration, present on admission, active -patient appearing clinically dry with dry skin and poor turgor, low normal bl ood pressure 97/66. -BUN of 25 with a creatinine of 0.8 with a BUN creatinine ratio of 31. -will hold patient's daily Lasix 40 mg daily it appears over diuresed. -IV normal saline at 100 cc/hour 5. Moderate to severe dementia, chronic, stable -patient appears to be baseline level of function with impaired cognition and impaired recall. Thought pattern is both tangental and circular with perseve ration. -patient presently without behavioral manifestations is cooperative. -will continue home regimen of Seroquel 12.5 mg twice daily. 6. Lymphedema, chronic, present on admission, stable -lymphedema right lower extremity with 2+ pitting edema. -no skin discoloration -will apply thigh-high Harinder wrap for compression. -holding daily Lasix for tomorrow due to over diuresis. 7. BPH, present on admission stable. -Prostate cancer status post prostatectomy and chemotherapy. -urinary incontinence, no evidence of recurrence. -continue patient's home regimen of tamsulosin 0.4 mg daily. 8. Peripheral neuropathy, chronic, present on admission, stable. -patient with neuropathy following chemotherapy for prostate cancer. -patient denies pain or burning only decreased sensation. -no further treatment indicated at this time. VTE prophylaxis: SCDs, heparin Diet: Heart healthy with added protein. IVF: Normal saline 100 cc/hour. Patient is admitted to the hospital for treatment of osteomyelitis and IV antibiotic therapy failing outpatient treatment. Patient is admitted as observation expected length of stay to be less than 2 midnights.
[2019-12-08] MEDS: SODIUM CHLORIDE 0.9% 1,000 ML 100 ML IV (20:08)
[2019-12-08] MEDS: QUETIAPINE 25 MG TABLET 12.5 MG PO (21:36)
[2019-12-08] MEDS: HEPARIN 5,000 UNIT/ML VIAL 5000 UNIT SUBCUT (21:36)
[2019-12-08] MEDS: CIPROFLOXACIN 400 MG/200 ML PIGGYBACK 200 MG IV (23:10)
[2019-12-09] VITALS (7 sets, daily range): BP systolic 113–139; BP diastolic 71–88; PULSE 60–85; RESP 16–20; TEMP 36.3–36.9; O2SAT 96–100
[2019-12-09 06:01] LABS: Add Manual Diff / Slide Review NO; Basophils Absolute Auto 0 /uL (0-100); Basophils Percent Auto 0.7 % (0-2); Eosinophils Absolute Auto 400 /uL (0-450); Hematocrit 37.4 % (41-53); Hemoglobin 12.4 g/dL (13.5-17.5); Lymphocytes Absolute Auto 1500 /uL (1100-4500); Lymphocytes Percent Auto 29.3 % (25-40); Mean Corpuscular HGB Conc 33.3 % (30-36); Mean Corpuscular Hemoglobin 29.5 PG (26-34); Mean Corpuscular Volume 88.6 fL (80-100); Monocytes Absolute Auto 600 /uL (0-900); Monocytes Percent Auto 11.4 % (3-14); Neutrophils Absolute Auto 2600 /uL (1500-7000); Neutrophils Percent Auto 51.6 % (50-75); Platelet Count 176 X10^3/uL (150-400); Red Blood Cell Count 4.21 X10^6/uL (4.5-5.9)
[2019-12-09 06:06] LABS: BUN Creatinine Ratio 32.9 (6-22); Blood Urea Nitrogen 23 mg/dL (9-20); Calcium 8.8 mg/dL (8.4-10.2); Carbon Dioxide 27 mmol/L (22-32); Chloride 103 mmol/L (98-107); Estimated Glomerular Filt Rate > 60.0 mL/min (>60); Glucose 81 mg/dL (80-110); HEMOLYSIS < 15 (0-50); Potassium 3.1 mmol/L (3.4-5.1); Sodium 138 mmol/L (137-145)
[2019-12-09] MEDS: POTASSIUM CHLORIDE 40 MEQ in SODIUM CHLORIDE 0.9% 500 ML 130 ML IV (06:37)
[2019-12-09] MEDS: ERTAPENEM 1 GM in SODIUM CHLORIDE 0.9% 100 ML 200 ML IV (08:19)
[2019-12-09] MEDS: ASPIRIN EC 81 MG TABLET PO (08:22)
[2019-12-09] MEDS: CYANOCOBALAMIN (VITAMIN B-12) 500 MCG TABLET PO (08:22)
[2019-12-09] MEDS: QUETIAPINE 25 MG TABLET 12.5 MG PO ×2 (08:22→21:07)
[2019-12-09] MEDS: HEPARIN 5,000 UNIT/ML VIAL 5000 UNIT SUBCUT ×2 (08:22→21:07)
[2019-12-09] MEDS: TAMSULOSIN 0.4 MG CAPSULE PO (08:22)
--- NOTE | 2019-12-09 08:52 | CM.DANOTE ---
Addendum entered by Clarissa Romano R.N. 12/09/19 15:09: Attempted to reach at [facility], here in [place], for this lining caser was told that she has been staying in a motel since patient has been at [facility]. Attempted to reach at [facility]. Phone also disconnected. Confirmed with Paul in [place], that patient is inpatient status effective 12/08, secondary to osteomyelitis as evidenced by recent bone scan. Danuta at [facility] has reviewed, and she stated, as long as he is switched to [facility], they can accept. Patient would be eligible for usp by Wednesday, 12/11. Addendum entered by Clarissa Romano R.N. 12/09/19 09:59: Discussed patient in team rounds. He will be getting a PICC line today. He will need usp, for he will need several weeks of antibiotics. Have not yet seen . Dequan in [place] will review and see if patient can be changed to inpatient status. Called Danuta at [facility] in admissions. She stated she is familiar with patient, and they will be able to accept. She will review. Again, will depend upon inpatient status. Original Note: DCP: Case received, EMR reviewed and met briefly with patient. Patient does have history of dementia, but was able to ask him a few questions after introducing self. Also, called [facility] and spoke to nurseMami, for additional information. Attempted to call , Ariana, who resides in [place], but phone connected. DCP assessment completed with information currently available. Patient is an 79 year old male who admitted yesterday afternoon to the care of the hospitalist team. PCP: Dr. Alarcon. Payer: confirmed: Medicare. Patient came to the hospital via wheel-chair from [facility] wound clinic, sent by Dr. Carvalho. Patient resides at [facility], and is sent over to to the wound clinic for dressing changes and wound assessment. Patient has a stage 4 pressure wound on his right heel, and wound clinic was concerned about possible infection. Patient has had x-ray of foot, as well as chest x-ray. Attempted to call , Berna Montes in [place], but phone disconnected. Was able to call nurseMami, at [facility]. Her phone number is: [phone]. 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 Her phone number is: [phone]. Mami went over care plan for this patient. Staff use sit to stand, for transfers, secondary to not being able to provide pressure on his heel. They may also use a hoier if he is unable to use his upper body. They do not do dressing changes to his heel, they are done at wound clinic a few times a week. Patient needs assist with toileting. He does feed himself. Confirmed with Mami that patients at [facility] can't have a PICC line, or any IV medications. Patient holds current diagnosis of UTI as well, and is being checked for Osteomylitis. At this time, is under OBS status. Patient is alert, is aware of where he lives, but pleasantly confused. He was sitting up in bed when this lining caser checked on him. P: DCP will continue to follow closely and discuss in team rounds. Is unclear at this time if patient will need on going IV ABO. Clarissa Romano RN/Cardiology Clinical Nurse Specialist
[2019-12-09] MEDS: VANCOMYCIN 1,000 MG/200 ML PIGGYBACK 200 MG IV ×2 (09:32→21:07)
[2019-12-09 10:48] LABS: Bacteria Urine None Seen; RBC Urine None Seen (0-5/HPF); WBC Urine None Seen (0-5/HPF)
[2019-12-09 11:18] LABS: Appearance Urine UA CLEAR; Bilirubin Urine UA NEGATIVE (NEGATIVE); Color Urine UA YELLOW; Glucose Urine UA NEGATIVE (Negative); Ketones Urine UA TRACE (NEGATIVE); Leukocyte Esterase Urine UA NEGATIVE (NEGATIVE); Nitrite Urine UA NEGATIVE (Negative); Occult Blood Urine UA TRACE-INTACT (Negative); Protein Urine UA NEGATIVE (Negative); Urobilinogen Urine UA 0.2 E.U./dL (0.2); pH Urine UA 5.5 (4.5-8.0)
[2019-12-09 11:36] LABS: Amorphous Sediment Urine 2+; Culture Indicated Urine Cult Not Indicated
--- NOTE | 2019-12-09 13:08 | DI.RAD.S_ITS ---
PROCEDURE: XR CHEST 1V INDICATIONS: picc line TECHNIQUE: One view of the chest was acquired. COMPARISON: [facility], CR, XR CHEST 1V, 10/08/2019, 13:33. [facility], CR, XR CHEST 1V, 12/08/2019, 16:30. FINDINGS: Surgical changes and devices: A left-sided PICC line is seen, with the tip overlying the mid to superior aspect of the superior vena cava, approximately 2 cm above the cavoatrial junction. Lungs and pleura: Lungs are clear. No pleural effusions or pneumothorax. Mediastinum: Mediastinal contours appear normal. Heart size is normal. Bones and chest wall: No suspicious bony lesions. Overlying soft tissues appear unremarkable. IMPRESSION: The tip of the left-sided PICC line overlies the mid to superior aspect of the superior vena cava. Dictated by: Ruben Hale M.D. on 12/09/2019 at 12:29 Approved by: Ruben Hale M.D. on 12/09/2019 at 12:29
--- NOTE | 2019-12-09 13:32 | P.PN_ITS ---
Subjective Subjective Date Patient Seen: 12/09/19 Time Patient Seen: 13:36 Interval history: Mr. Jimi Montes is an 79-year-old male patient who resides at [facility] living and has a history significant for stage IV right heel ulcer followed by wound care, recurrent UTI with history of ESBL infection, hypertension, dementia with behavioral and cognitive impairment, prostate cancer status post prostatectomy and chemotherapy with inguinal node dissection, bowel and bladder incontinence, neuropathy and right lower extremity lymphedema who was sent to the hospital by Dr. High for osteomyelitis after infectious Disease recommended the patient be started on IV vancomycin for treatment. The patient denies any complaints today. He has no fevers, chills, nausea, vomiting, abdominal pain. His potassium was mildly low at 3.1 today and he was given repletion. Exam Vital Signs (past 8 hours): - 12/09/19 08:00 12/09/19 12:00 Temperature 97.3 F L 98.1 F Pulse Rate 60 85 Respiratory Rate 17 18 Blood Pressure 122/71 121/74 Pulse Oximetry 100 98 Oxygen Delivery Method Room Air Oxygen Flow Rate 0 Narrative Exam Narrative: General: Well developed chronically ill-appearing elderly male semi recumbent in bed in no acute distress. HEENT: Normocephalic, atraumatic. LINDA, EOMs intact, conjunctiva is clear, sclerae are anicteric, no rhinorrhea, oral mucous membranes moist and pink. Neck: Supple, no JVD, no thyromegaly. Lymph nodes: No cervical or supraclavicular lymphadenopathy. Cardiovascular: Regular rate and rhythm, S1-S2 without murmurs, rubs, or gallops. 2+ pitting edema right lower extremity. Pulmonary: Symmetrical movement, good tidal volume, clear to auscultation bilaterally, no coarseness crackles or wheezing, no cough present. Abdomen: Soft, bowel sounds present, non-tender, non-distended. No hepatosplenomegaly or masses appreciated. Extremities: Right lower extremity modertate lymphedema without redness or warmth, 3 mm ulcer plantar surface of the calcaneus. Lymphedema the right foot and right lower extremity, left lower extremity slightly dusky appearing with 2+ dorsalis pedis pulse. Skin: Normal temperature, turgor, and texture; no rash, ulcers, or subcutaneous nodules appreciated. Neurological: Alert and oriented to person and place only, cranial nerves 2-12 grossly intact, neuropathy bilateral lower extremities Psychiatric: Cooperative with impaired cognition, short-term memory recall deficit, sometimes nonsensical thought process, at best tangential Objective Labs Result Diagrams: 12/09/19 05:25 12/09/19 05:25 Labs: Laboratory Results - last 24 hr 12/08/19 12/08/19 12/08/19 16:35 16:35 16:35 WBC 7.2 RBC 4.46 L Hgb 13.1 L Hct 39.3 L MCV 88.2 MCH 29.3 MCHC 33.2 RDW 16.2 H Plt Count 207 Neut % (Auto) 60.1 Lymph % (Auto) 25.8 [place] % (Auto) 9.0 Eos % (Auto) 4.6 H Baso % (Auto) 0.5 Neut # (Auto) 4300 Lymph # (Auto) 1900 [place] # (Auto) 600 Eos # (Auto) 300 Baso # (Auto) 0 ESR 26 H PT 12.9 H INR 1.1 APTT 30 D Sodium Potassium Chloride Carbon Dioxide BUN Creatinine Estimated GFR BUN/Creatinine Ratio Glucose Lactate Calcium Magnesium Total Bilirubin AST ALT Alkaline Phosphatase C-Reactive Protein Total Protein Albumin Globulin Albumin/Globulin Ratio Lipase Procalcitonin < 0.05 Urine Color Urine Appearance Urine pH Ur Specific Evans Urine Protein Urine Glucose (UA) Urine Ketones Urine Occult Blood Urine Nitrate Urine Bilirubin Urine Urobilinogen Ur Leukocyte Esterase Urine RBC Urine WBC Amorphous Sediment Urine Bacteria Ur Culture Indicated? 12/08/19 12/08/19 12/08/19 16:35 16:35 16:35 WBC RBC Hgb Hct MCV MCH MCHC RDW Plt Count Neut % (Auto) Lymph % (Auto) [place] % (Auto) Eos % (Auto) Baso % (Auto) Neut # (Auto) Lymph # (Auto) [place] # (Auto) Eos # (Auto) Baso # (Auto) ESR PT INR APTT Sodium 139 Potassium 3.5 Chloride 102 Carbon Dioxide 28 BUN 25 H Creatinine 0.80 Estimated GFR > 60.0 BUN/Creatinine Ratio 31.3 H Glucose 81 Lactate 1.3 Calcium 9.4 Magnesium 2.0 Total Bilirubin 0.7 AST 27 ALT 14 Alkaline Phosphatase 107 C-Reactive Protein 1.3 H Total Protein 7.6 Albumin 4.2 Globulin 3.4 Albumin/Globulin Ratio 1.2 Lipase 243 Procalcitonin Urine Color Urine Appearance Urine pH Ur Specific Evans Urine Protein Urine Glucose (UA) Urine Ketones Urine Occult Blood Urine Nitrate Urine Bilirubin Urine Urobilinogen Ur Leukocyte Esterase Urine RBC Urine WBC Amorphous Sediment Urine Bacteria Ur Culture Indicated? 12/09/19 12/09/19 12/09/19 05:25 05:25 10:30 WBC 5.0 RBC 4.21 L Hgb 12.4 L Hct 37.4 L MCV 88.6 MCH 29.5 MCHC 33.3 RDW 16.0 H Plt Count 176 Neut % (Auto) 51.6 Lymph % (Auto) 29.3 [place] % (Auto) 11.4 Eos % (Auto) 7.0 H Baso % (Auto) 0.7 Neut # (Auto) 2600 Lymph # (Auto) 1500 [place] # (Auto) 600 Eos # (Auto) 400 Baso # (Auto) 0 ESR PT INR APTT Sodium 138 Potassium 3.1 L Chloride 103 Carbon Dioxide 27 BUN 23 H Creatinine 0.70 Estimated GFR > 60.0 BUN/Creatinine Ratio 32.9 H Glucose 81 Lactate Calcium 8.8 Magnesium Total Bilirubin AST ALT Alkaline Phosphatase C-Reactive Protein Total Protein Albumin Globulin Albumin/Globulin Ratio Lipase Procalcitonin Urine Color Yellow Urine Appearance Clear Urine pH 5.5 Ur Specific Evans 1.020 Urine Protein Negative Urine Glucose (UA) Negative Urine Ketones Trace H Urine Occult Blood Trace-intact Urine Nitrate Negative Urine Bilirubin Negative Urine Urobilinogen 0.2 Ur Leukocyte Esterase Negative Urine RBC None seen Urine WBC None seen Amorphous Sediment 2+ Urine Bacteria None seen Ur Culture Indicated? Cult not indicated Assessment & Plan Assessment & Plan narrative: This is an 79-year-old male patient who was sent to the hospital for treatment of chronic wound in right heel treated with multiple course of doxycycline. Wound and bone cultures taken 11/30/2019 demonstrating Staph aureus infection, he had also has a wound culture showing MRSA. Infectious disease appears based on Dr. High's outpatient note to have recommended IV vancomycin for treatment of the osteomyelitis. 1. Acute osteomyelitis with chronic nonhealing right heel wound, present on admission, active. -patient has been under the care of Dr. High at the wound care clinic -laboratory findings ESR-26, CRP-1.3, lactic acid-1.3, procalcitonin less than 0.05. -wound culture cultures taken on 11/30/2019 find MRSA failing 2 courses of doxycycline treatment. -bone biopsy obtained the same day is not available for review but reported as same organism per outpatient documentation. -MRI taking 10/12/2019 was negative for osteomyelitis at that time, however bone biopsy is more definitive diagnosis. -ordered vancomycin per pharmacy, once therapeutic dosing has been achieved patient can discharge likely to [facility] for 6 weeks IV vancomycin therapy. He will follow up with the wound care clinic, as well as likely Orthopedics and Infectious Disease. -ordered PICC line placement, which should be placed today. 2. Chronic nonhealing wound right heel, present on admission, active -small 3 mm wound right heel, without drainage or evidence of cellulitis, no pain secondary to chemo induced neuropathy. - pressure ulcer right heel stage IV per evaluation by Dr. High. -strict nonweightbearing status right lower extremity. 3. History of ESBL urinary tract infection. -UA is negative this admission and patient is without symptoms. 4. Acute dehydration, present on admission, resolved -patient appearing clinically dry on admission with dry skin and poor turgor, low normal blood pressure 97/66. -IV fluids were given, and are held today as patient is improved. Will continue to hold home Lasix at this time. 5. Moderate to severe dementia, chronic, stable -patient appears to be baseline level of function with impaired cognition and impaired recall. Thought pattern is both tangental and circular with perseveration. -patient presently without behavioral manifestations is cooperative. -will continue home regimen of Seroquel 12.5 mg twice daily. 6. Lymphedema, chronic, present on admission, stable -lymphedema right lower extremity with 2+ pitting edema. -no skin discoloration -will apply thigh-high Harinder wrap for compression. -holding daily Lasix for tomorrow due to over diuresis as noted above 7. BPH, present on admission stable. -Prostate cancer status post prostatectomy and chemotherapy. -urinary incontinence, no evidence of recurrence. -continue patient's home regimen of tamsulosin 0.4 mg daily. 8. Peripheral neuropathy, chronic, present on admission, stable. -patient with neuropathy following chemotherapy for prostate cancer. -patient denies pain or burning only decreased sensation. -no further treatment indicated at this time. VTE prophylaxis: heparin Diet: Heart healthy with added protein. Patient is admitted to the hospital for treatment of osteomyelitis and IV antibiotic therapy. He is admitted under inpatient status. He will likely need to go to [facility] for continued antibiotic therapy upon discharge, once therapeutic dosing of vancomycin is achieved.
--- NOTE | 2019-12-09 16:14 | OT.IPNOTE ---
Chart reviewed, pt had a recent admit in September of 2019 where information was obtained from [facility] that pt was DEP for all transfers and ADLs except feeding. Per nursing today, pt is feeding self with IND. Attempted to contact staff at [facility] multiple times but was unable to speak with anyone. At this time, it is likely that pt is at his previous level of functioning of DEP and is therefore not appropriate for OT services. Will discharge order at this time.
--- NOTE | 2019-12-09 17:15 | PT-IP ANOTE ---
Pt was admitted here in the hospital last September 2019 and at that time, pt was dependent with all mobilities. uses a antoine lift for transfers and is non-ambulatory. pt has a chronic LE wound and is NWB on RLE. Called [facility] and confirmed that pt's level of assistance has not changed and that pt still is NWB on RLE and is dependent with all mobilities but able to feed self. stated that pt sits on a w/c during meal times only. PT eval received and pt is at PLOF and no PT intervention indicated at this time.
--- NOTE | 2019-12-09 22:42 | PC.NURSE ---
Patient off and on confused. 2 person assist with mechanical lift. Sat in chair for dinner. No complaints of pain. Bed alarm on, call light within reach.
[2019-12-10] VITALS (10 sets, daily range): BP systolic 104–133; BP diastolic 63–76; PULSE 67–85; RESP 14–19; TEMP 36.3–36.7; O2SAT 98–100
[2019-12-10] MEDS: CYANOCOBALAMIN (VITAMIN B-12) 500 MCG TABLET PO (08:42)
[2019-12-10] MEDS: ASPIRIN EC 81 MG TABLET PO (08:42)
[2019-12-10] MEDS: HEPARIN 5,000 UNIT/ML VIAL 5000 UNIT SUBCUT ×2 (08:43→21:09)
[2019-12-10] MEDS: VANCOMYCIN TROUGH 1 REQUEST MISC (08:43)
[2019-12-10] MEDS: TAMSULOSIN 0.4 MG CAPSULE PO (08:47)
[2019-12-10] MEDS: QUETIAPINE 25 MG TABLET 12.5 MG PO ×3 (08:47→22:20)
[2019-12-10 09:02] LABS: Vancomycin Trough 12.3 ug/mL (10-20)
[2019-12-10] MEDS: VANCOMYCIN 1,250 MG in SODIUM CHLORIDE 0.9% 250 ML IV ×2 (09:35→21:11)
--- NOTE | 2019-12-10 10:46 | CM.DPC ---
Addendum entered by Clarissa Romano R.N. 12/10/19 13:59: Spoke to Danuta at [facility] regarding , Berna. Danuta stated that she did speak to her regarding patient being covered for 23 days. Patient had not had 60 days where he was not hospitalized, had been here in September, with most recent visit, which is why he has 23 days left. is now aware of this. Danuta mentioned, they will try to work with patient. He also has room at [facility]. Plan is for discharge tomorrow. Will complete PASSR. Original Note: DCP Cont: Was able to get in contact with Berna, patient's . She is staying at [facility], and her room number is: 102. The main phone number is: [phone]. She prefers that you speak slowly and clearly for her to understand. She sleeps in late, because she has a hard time sleeping at night. After speaking at Danuta at [facility], found out that patient has 23 days of Medicare days left, since he did not complete them at last stay. Stated that patient may have to pay privately for a room there, and patient may be needing 6 weeks of IV antibiotics. Let know this, and encouraged her to call Danuta in admissions, to discuss further. [facility] does not allow patients to have PICC lines at facility. P: DCP will continue to follow closely. He will be eligible for discharge tomorrow. Will follow up with Danuta at [facility] to see if she has spoken to . Clarissa Romano RN/Adult Basic Studies Teacher
--- NOTE | 2019-12-10 11:16 | PC.NURSE ---
Addendum entered by Arline Murray R.N. 12/10/19 15:18: GI/INTEG - pt was incont stool and had smeared w/his hands, total clean/hands/[facility] care ptrovided, noted now to have a small superficial opening at r buttock cheek, barrier cream and repositioned. Addendum entered by Arline Murray R.N. 12/10/19 11:40: MED - per discussion with , no new labs ordered, reviewed 12/09 and ok admin po lasix. Original Note: AM NOTE - pt is awakened for vitals signs, initially reponds to voice but keeps his eyes closed, incont urine and brief changed, some pink at posterior scrotal area and barrier cream applied, dry flaky skin rle w/zakiya wrap foot to thigh, does awaken with stimulus and pt sat up and able to feed self, does repeat questions and given reoriented, asking for an itinerary, given a list of his med times and pt becomes anxious despite repeated discussion of the plan and medications for this am.
[2019-12-10] MEDS: FUROSEMIDE 40 MG TABLET PO (11:36)
--- NOTE | 2019-12-10 11:54 | PM.PN.1 ---
Subjective Subjective Date Patient Seen: 12/10/19 Interval history: Jimi Montes is an 79-year-old male resident of [facility] with a past medical history significant for dementia with behavioral disturbance, hypertension, prostate CA, chronic right lower extremity lymphedema, bowel and bladder incontinence, right heel pressure ulcer, sacral pressure ulcer, history of recurrent ESBL E. coli UTI who presented to ED but wound care for nonhealing right lower extremity wound with cellulitis The patient is resting in bed and appears comfortable. He has moderate to severe dementia and is alert and oriented to person only. He is fixated on what his itinerary for the day is and dying.He has no complaints and denies headache, chest pain, shortness of breath, abdominal pain, nausea, vomiting, fever, chills, dysuria, diarrhea or constipation. Exam Vital Signs (past 8 hours): - 12/10/19 04:00 12/10/19 04:25 12/10/19 08:00 Temperature 98.1 F 97.6 F Pulse Rate 73 67 Respiratory Rate 14 14 Blood Pressure 104/63 133/75 Pulse Oximetry 99 99 98 Oxygen Delivery Method Room Air Oxygen Flow Rate 0 Narrative Exam Narrative: General: Elderly male lying in bed and in no acute distress, appears chronically ill, moderate to severe dementia with short-term memory recall deficit but appropriately interactive otherwise. HEENT: Normocephalic, atraumatic. External ears without defect. Pupils equal, round, and reactive to light. Anicteric sclerae, moist conjunctivae, and no lid lag. Neck: Supple with full range of motion. No lymphadenopathy or thyromegaly. Cardiovascular: Regular rate and rhythm without murmurs, rubs, or gallops appreciated. Pulmonary: Clear to auscultation bilaterally without crackles, wheezes, or rhonchi. Normal respiratory effort with no use of accessory muscles. Abdomen: Soft, bowel sounds present, non-tender, non-distended. No hepatosplenomegaly or masses appreciated. Extremities: No clubbing or cyanosis. Right lower extremity modertate lymphedema with mild erythema with HARINDER wrap in place C/D/I. Neurological: Cranial nerves grossly intact. Generalized weakness and physical deconditioning mostly bed bound. Psychiatric: Alert oriented to person only. Moderate to severe dementia with short-term memory recall deficit and intermittent hallucinations and currently at baseline. Objective Labs Result Diagrams: 12/09/19 05:25 12/10/19 08:30 Labs: Laboratory Results - last 24 hr 12/10/19 08:30 Vancomycin Trough 12.3 Assessment & Plan Assessment & Plan narrative: Jimi Montes is an 79-year-old male resident of [facility] with a past medical history significant for dementia with behavioral disturbance, hypertension, prostate CA, chronic right lower extremity lymphedema, bowel and bladder incontinence, right heel pressure ulcer, sacral pressure ulcer, history of recurrent ESBL E. coli UTI who presented to ED but wound care for nonhealing right lower extremity wound with cellulitis 1. Acute osteomyelitis secondary to chronic non-healing right heel wound, present on admission. Active. -Patient has been under the care of Dr. High at the wound care clinic for small nonhealing 3 mm wound on right heel. -ESR elevated at 26 and CRP 1.3. -Wound and bone biopsy cultures positive for MRSA with patient failing outpatient treatment with 2 courses of doxycycline. -Continue vancomycin with dosing per pharmacist x6 weeks. Continue outpatient wound care clinic follow-up. 2. Acute dehydration, present on admission, resolved -Patient appearing clinically dry on admission with poor skin turgor and low normal blood pressure 97/66 possibly due to over diuresis. -Continued IV fluids until adequately hydrated then discontinued. 3. Acute hypokalemia present on admission. Resolved. -Initial potassium level 3.1. Received potassium chloride 40 mEQ IV x1. -Continue to monitor potassium level closely and replete as necessary. 4. Moderate to severe dementia without behavioral disturbance, chronic, present on admission. Stable. -Patient appears to be baseline level of function with impaired cognition and impaired recall. Thought pattern is both tangential and circumstantial with perseveration. -Continue home Seroquel 12.5 mg twice daily. 5. Lymphedema, chronic, present on admission. Stable. -Continue Harinder wrap for compression. -Held furosemide due to over diuresis as noted above. Restart home furosemide 40 mg daily. 6. BPH, present on admission stable. -Patient with history of prostate cancer status post prostatectomy and chemotherapy. -Continue patient's home regimen of tamsulosin 0.4 mg daily. 7. Normocytic anemia, chronic, present on admission. Stable. -Likely anemia of chronic disease. -No overt signs of bleeding. -Continue to monitor for signs of bleeding and CBC periodically. 8. Peripheral neuropathy, chronic, present on admission, stable. -Patient with neuropathy following chemotherapy for prostate cancer. -No further treatment indicated at this time. 9. History of ESBL urinary tract infection. -UA is negative this admission and patient is without symptoms. 10. History of stage II sacral decubitus pressure ulceration. -Previous sacral decubitus pressure ulceration has healed. Continue frequent turns and repositioning. VTE prophylaxis: Heparin Code status: Full code Disposition: Patient likely to discharge to [facility] facility tomorrow for continued IV antibiotics to treat osteomyelitis.
[2019-12-10 12:09] LABS: BUN Creatinine Ratio 28.3 (6-22); Blood Urea Nitrogen 17 mg/dL (9-20); Calcium 9.1 mg/dL (8.4-10.2); Carbon Dioxide 24 mmol/L (22-32); Chloride 107 mmol/L (98-107); Estimated Glomerular Filt Rate > 60.0 mL/min (>60); Glucose 84 mg/dL (80-110); HEMOLYSIS 25 (0-50); Potassium 3.7 mmol/L (3.4-5.1); Sodium 140 mmol/L (137-145)
[2019-12-10 14:21] LABS: Enterococcus species Not Detected (Not Detect); Listeria monocytogenes Not Detected (Not Detect); Staphylococcus species Detected (Not Detect)
[2019-12-10 14:22] LABS: Acinetobacter baumannii Not Detected (Not Detect); Candida albicans Not Detected (Not Detect); Candida glabrata Not Detected (Not Detect); Candida krusei Not Detected (Not Detect); Candida parapsilosis Not Detected (Not Detect); Candida tropicalis Not Detected (Not Detect); E. coli Not Detected (Not Detect); Enterobacter cloacae complex Not Detected (Not Detect); Enterobacteriaceae species Not Detected (Not Detect); Haemophilus influenzae Not Detected (Not Detect); Methicillin-resistant gene Not Detected (Not Detect); Neisseria meningitidis Not Detected (Not Detect); Proteus species Not Detected (Not Detect); Pseudomonas aeruginosa Not Detected (Not Detect); Serratia marcescens Not Detected (Not Detect); Streptococcus agalactiae (Gr B Not Detected (Not Detect); Streptococcus pneumonia Not Detected (Not Detect); Streptococcus pyogenes (Gr A) Not Detected (Not Detect); Streptococcus species Not Detected (Not Detect)
--- NOTE | 2019-12-10 21:54 | PC.NURSE ---
Addendum entered by Nicole Wetzel R.N. 12/10/19 23:29: gave additional 12.5mg Seroquel per provider order. pt is now sleeping. Original Note: pt attempted to get out of bed, threw his pillow and sheets on the floor. pt also removed his R. boot and zakiya wrap. IVF abx infusing. call light in reach. bed alarm active. frequent checks. q2turn.
[2019-12-11 00:05] VITALS: BP 125/74; PULSE 69; RESP 12; TEMP 36.9; O2SAT 98
[2019-12-11 02:00] VITALS: O2SAT 98
[2019-12-11 05:50] VITALS: BP 126/79; PULSE 62; RESP 14; TEMP 36.7; O2SAT 98
[2019-12-11 06:00] VITALS: O2SAT 98
[2019-12-11 06:14] LABS: Blood Urea Nitrogen 16 mg/dL (9-20); Carbon Dioxide 26 mmol/L (22-32); Chloride 105 mmol/L (98-107); Estimated Glomerular Filt Rate > 60.0 mL/min (>60); Glucose 85 mg/dL (80-110); HEMOLYSIS < 15 (0-50); Magnesium 1.8 mg/dL (1.6-2.3); Potassium 3.3 mmol/L (3.4-5.1); Sodium 137 mmol/L (137-145)
--- NOTE | 2019-12-11 06:24 | PC.NURSE ---
Addendum entered by Kenyatta Estrella R.N. 12/11/19 06:28: Covered right heal ulcer with a bandage. No drainage Original Note: Pt alert and oriented x2 and confused. Pt removed zakiya wrap and bootie from right leg. Refusing to wear at this time. Pt denies any pain. Voiding to urinal without difficulty. Turning pt q 2 hours.
[2019-12-11 07:30] LABS: Procalcitonin < 0.05 ng/mL (<0.5)
--- NOTE | 2019-12-11 07:47 | PM.DS.1 ---
History of Present Illness History of Present Illness Date Patient Seen: 12/08/19 Chief complaint: RIGHT FOOT INFECTION Narrative: Written by Henry BENNETT: Mr. Jimi Montes is an 79-year-old male patient who resides at [facility] living and has a history significant for stage IV right heel ulcer followed by wound care, recurrent UTI with history of ESBL infection, hypertension, dementia with behavioral and cognitive impairment, prostate cancer status post prostatectomy and chemotherapy with inguinal node dissection, bowel and bladder incontinence, neuropathy and right lower extremity lymphedema who was sent to the hospital by Dr. High for osteomyelitis. The patient has been receiving routine care for a nonhealing right heel ulcer at the wound care clinic where cultures and bone biopsy were obtained on 11/30/2019. Per clinic documentation cultures demonstrate chronic osteomyelitis with MSSA. Patient is a poor historian related to dementia with cognitive impairment. He is able state he is in the hospital for wound infection but cannot state the date. At present he denies complaints of pain. He denies complaints of fevers or chills, headaches or dizziness, nasal congestion or sore throat. He denies chest pain or palpitations, shortness of breath cough or wheezing. When asked about abdominal pain he indicates ?that's another thing? but cannot clarify his meaning. He denies nausea or vomiting and cannot state when his last bowel movement was. He describes occasional pain on urination. The patient is nonweightbearing related to chronic ulcer right foot using an offloading boot and wheelchair. He has chronic lymphedema of the right leg with use of compression wrap. Upon arrival to the ER the patient's temperature 97.5?, heart rate of 87, blood pressure 97/66, respirations of 18 saturating 100% on room air. X-ray of the foot is obtained finding no evidence of osteo myelitis ever noted low sensitivity examine the 1st 15 days by radiology. X-ray of the chest was obtained which shows no acute cardiopulmonary processes. On laboratory analysis the patient has a white count of 7.2, hemoglobin of 13.1, hematocrit of 39.3, platelets of 207. His PT is 12.9 an INR of 1.1 and PTT of 30. His electrolytes are within range with a BUN of 25 and creatinine of 0.8. His nonfasting glucose is 81. He has an ESR 26, CRP of 1.3 and procalcitonin is less than 0.05 and a lactic acid of 1.3. Urinalysis is obtained which shows positive leukocyte esterase, positive WBCs, trace blood and many bacteria. Patient has a history of prior ESBL UTI. In the ER the patient started on IV fluid normal saline 150 cc/hour given initial dose of vancomycin 1000 mg IV. The patient is admitted to the medicine service for treatment of osteomyelitis. 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 Acute osteomyelitis secondary to chronic non-healing right heel wound, present on admission. Active. 2. Acute dehydration, present on admission. Resolved. 3. Acute hypokalemia present on admission. Resolved. 4. Moderate to severe dementia without behavioral disturbance, chronic, present on admission. Stable. 5. Lymphedema, chronic, present on admission. Stable. 6. BPH, present on admission stable. 7. Normocytic anemia, chronic, present on admission. Stable. 8. Peripheral neuropathy, chronic, present on admission. Stable. 9. History of ESBL urinary tract infection. 10. History of stage II sacral decubitus pressure ulceration. Hospital Course: Jimi Montes is an 79-year-old male resident of [facility] with a past medical history significant for dementia with behavioral disturbance, hypertension, prostate CA, chronic right lower extremity lymphedema, bowel and bladder incontinence, right heel pressure ulcer, sacral pressure ulcer, history of recurrent ESBL E. coli UTI who presented to ED but wound care for nonhealing right lower extremity wound with cellulitis 1. Acute osteomyelitis secondary to chronic non-healing right heel wound, present on admission. Active. -Patient has been under the care of Dr. High at the wound care clinic for small nonhealing 3 mm wound on right heel. -ESR elevated at 26 and CRP 1.3. -Wound and bone biopsy cultures positive for MRSA with patient failing outpatient treatment with 2 courses of doxycycline. -Continued vancomycin with dosing per pharmacist 1250 mg every 12 hours and will need to continue for 6 weeks total to stop after evening dose on 01/19/2020. Continue outpatient wound care clinic follow-up with Dr. High. 2. Acute dehydration, present on admission. Resolved. -Patient appeared clinically dry on admission with poor skin turgor and low normal blood pressure 97/66 possibly due to over diuresis. -Continued IV fluids until adequately hydrated then discontinued. 3. Acute hypokalemia present on admission. Resolved. -Initial potassium level 3.1. Received potassium chloride 80 mEq IV and 40 mEq PO. Discharged on potassium chloride 40 mEq PO daily with meals and recommend to monitor potassium level closely. -Continued to monitor potassium level closely and replete as necessary. 4. Moderate to severe dementia without behavioral disturbance, chronic, present on admission. Stable. -Patient appears to be baseline level of function with impaired cognition and impaired recall. Thought pattern is both tangential and circumstantial with perseveration. -Continued home Seroquel 12.5 mg twice daily. 5. Lymphedema, chronic, present on admission. Stable. -Continued PRITI wrap for compression and elevation of bilateral lower extremities. -Held furosemide initially due to over diuresis as noted above. Restarted home furosemide 40 mg daily. 6. BPH, present on admission stable. -Patient with history of prostate cancer status post prostatectomy and chemotherapy. -Continued patient's home regimen of tamsulosin 0.4 mg daily. 7. Normocytic anemia, chronic, present on admission. Stable. -Likely anemia of chronic disease. -No overt signs of bleeding. -Continued to monitor for signs of bleeding and CBC periodically. 8. Peripheral neuropathy, chronic, present on admission. Stable. -Patient with neuropathy following chemotherapy for prostate cancer. -No further treatment indicated at this time. 9. History of ESBL urinary tract infection. -UA is negative this admission and patient is without symptoms. 10. History of stage II sacral decubitus pressure ulceration. -Previous sacral decubitus pressure ulceration has healed. Continue frequent turns and repositioning. Exam Vital Signs (past 8 hours): - 12/11/19 00:05 12/11/19 02:00 12/11/19 05:50 Temperature 98.5 F 98.0 F Pulse Rate 69 62 Respiratory Rate 12 14 Blood Pressure 125/74 126/79 Pulse Oximetry 98 98 98 12/11/19 06:00 Temperature Pulse Rate Respiratory Rate Blood Pressure Pulse Oximetry 98 Oxygen Delivery Method Room Air Oxygen Flow Rate 0 Narrative Exam Narrative: General: Elderly male lying in bed and in no acute distress, appears chronically ill, moderate to severe dementia with short and long-term memory recall deficit but appropriately interactive otherwise. HEENT: Normocephalic, atraumatic. External ears without defect. Pupils equal, round, and reactive to light. Anicteric sclerae, moist conjunctivae, and no lid lag. Neck: Supple with full range of motion. No lymphadenopathy or thyromegaly. Cardiovascular: Regular rate and rhythm without murmurs, rubs, or gallops appreciated. Pulmonary: Clear to auscultation bilaterally without crackles, wheezes, or rhonchi. Normal respiratory effort with no use of accessory muscles. Abdomen: Soft, bowel sounds present, non-tender, non-distended. No hepatosplenomegaly or masses appreciated. Extremities: No clubbing or cyanosis. Right lower extremity mild lymphedema with mild erythema resolving with off floating bootie in place. Neurological: Cranial nerves grossly intact. Generalized weakness and physical deconditioning mostly bed bound. Psychiatric: Alert oriented to person only. Moderate to severe dementia with short and long term acute care registered nurse memory recall deficit and intermittent hallucinations at baseline. Objective Labs Result Diagrams: 12/09/19 05:25 12/11/19 05:30 Labs: Laboratory Results - last 24 hr 12/08/19 12/10/19 12/10/19 16:35 08:30 08:30 Sodium 140 Potassium 3.7 Chloride 107 Carbon Dioxide 24 BUN 17 Creatinine 0.60 L Estimated GFR > 60.0 BUN/Creatinine Ratio 28.3 H Glucose 84 Calcium 9.1 Magnesium Procalcitonin Vancomycin Trough 12.3 A. baumannii (PCR) Not detected Anette albicans (PCR) Not detected C. glabrata (PCR) Not detected C. krusei (PCR) Not detected C. parapsilosis (PCR) Not detected C. tropicalis (PCR) Not detected Enterobacteriac sp PCR Not detected E. cloacae complex PCR Not detected Enterococcus sp PCR Not detected E. coli (PCR) Not detected H. influenzae (PCR) Not detected Klebsiella oxytoca PCR Not detected Klebsiella pneumoniae Not detected List. monocytogenes PCR Not detected N. meningitidis (PCR) Not detected Proteus species (PCR) Not detected Serratia marcescens PCR Not detected Staphylococcus sp PCR Detected H Staph aureus (PCR) Detected H mecA-Methicil Res Gene Not detected Streptococcus sp PCR Not detected Group A Strep (PCR) Not detected Strep agalactiae (PCR) Not detected Strep pneumoniae (PCR) Not detected P. aeruginosa (PCR) Not detected Delilah/B-Vanco Res Genes Not Reportable KPC-Carbap Res Gene PCR Not Reportable 12/11/19 12/11/19 05:30 05:30 Sodium 137 Potassium 3.3 L Chloride 105 Carbon Dioxide 26 BUN 16 Creatinine 0.50 L Estimated GFR > 60.0 BUN/Creatinine Ratio 32.0 H Glucose 85 Calcium 9.0 Magnesium 1.8 Procalcitonin < 0.05 Vancomycin Trough A. baumannii (PCR) Anette albicans (PCR) C. glabrata (PCR) C. krusei (PCR) C. parapsilosis (PCR) C. tropicalis (PCR) Enterobacteriac sp PCR E. cloacae complex PCR Enterococcus sp PCR E. coli (PCR) H. influenzae (PCR) Klebsiella oxytoca PCR Klebsiella pneumoniae List. monocytogenes PCR N. meningitidis (PCR) Proteus species (PCR) Serratia marcescens PCR Staphylococcus sp PCR Staph aureus (PCR) mecA-Methicil Res Gene Streptococcus sp PCR Group A Strep (PCR) Strep agalactiae (PCR) Strep pneumoniae (PCR) P. aeruginosa (PCR) Delilah/B-Vanco Res Genes KPC-Carbap Res Gene PCR Discharge Plan Discharge Plan Patient Disposition: SNF Transfer to: [facility] Discharge orders & Medications Prescriptions: New potassium chloride [Klor-Con M20] 20 mEq Tablet,Er Particles/Crystals 40 meq PO DAILYCC Qty: 30 RF: 0 vancomycin in 0.9 % sodium chl 1.25 gram/250 mL solution 1.25 gram IV Q12H Qty: 9250 RF: 0 bisacodyl 10 mg Suppository 10 mg AK DAILY PRN (Reason: Constipation) Qty: 10 RF: 0 docusate sodium [DOK] 100 mg Capsule 100 mg PO BID PRN (Reason: Constipation) Qty: 60 RF: 0 Continued aspirin 81 mg Tablet,Delayed Release (Dr/Ec) 81 mg PO DAILY RF: 0 cyanocobalamin (vitamin B-12) [Vitamin B-12] 500 mcg Tablet 500 mcg PO DAILY RF: 0 cholecalciferol (vitamin D3) [Vitamin D3] 1,000 unit Tablet 1,000 unit PO DAILY RF: 0 tamsulosin [Flomax] 0.4 mg Capsule 0.4 mg PO DAILY Qty: 30 RF: 0 acetaminophen [Tylenol Arthritis Pain] 650 mg tablet extended release 650 mg PO TID RF: 0 quetiapine [Seroquel] 25 mg tablet 12.5 mg PO BID Qty: 30 RF: 0 furosemide 40 mg Tablet 40 mg PO DAILY Qty: 0 RF: 0 ascorbic acid (vitamin C) 500 mg Tablet 500 mg PO DAILY RF: 0 clotrimazole 1 % Cream 1 applic TOPICAL TID PRN (Reason: groin rash) RF: 0 Follow up/Referrals: Bill Alarcon MD [Primary Care Provider] - Discharge Health Status Multidrug resistant organism: MRSA Diet/Activity/Treatments Diet: Low-fat, Low-sodium and Low-cholesterol Activity: bed and wheel chair bound, transfers, continue PT/OT [facility] Rehab type: Physical therapy and Occupational therapy Discharge Data Primary Care Provider: Bill Alarcon V
[2019-12-11] MEDS: TAMSULOSIN 0.4 MG CAPSULE PO (08:08)
[2019-12-11] MEDS: ASPIRIN EC 81 MG TABLET PO (08:08)
[2019-12-11] MEDS: FUROSEMIDE 40 MG TABLET PO (08:08)
[2019-12-11] MEDS: POTASSIUM CHLORIDE 20 MEQ TAB 40 MEQ PO (08:09)
[2019-12-11] MEDS: HEPARIN 5,000 UNIT/ML VIAL 5000 UNIT SUBCUT (08:09)
[2019-12-11] MEDS: CYANOCOBALAMIN (VITAMIN B-12) 500 MCG TABLET PO (08:09)
[2019-12-11 08:11] VITALS: BP 120/77; PULSE 67; RESP 14; TEMP 37.1; O2SAT 96
[2019-12-11] MEDS: POTASSIUM CHLORIDE 40 MEQ in SODIUM CHLORIDE 0.9% 500 ML 130 ML IV (08:11)
[2019-12-11] MEDS: QUETIAPINE 25 MG TABLET 12.5 MG PO (08:17)
[2019-12-11 10:00] VITALS: O2SAT 98
[2019-12-11] MEDS: VANCOMYCIN 1,250 MG in SODIUM CHLORIDE 0.9% 250 ML IV (10:23)
--- NOTE | 2019-12-11 10:33 | CM.DPC ---
DCP Cont: Faxed signed med list, PASRR and SNF order to [facility] at fax # [phone]. Fax confirmation scanned in. (Discharge summary to follow once completed and signed by Dr. Duff) Venita Davila, Care Supervisor [employer]
--- NOTE | 2019-12-11 11:35 | CM.DPC ---
DCP Discharge SNF Per MD, pt is medically stable to d/c to SNF today for medical terminologist IV-Abx for 6 weeks. DANIELE called [facility] admissions and updated on d/c orders and confirmed they can accept today and provide transport around 1300 after his IV-Abx dose this morning. DANIELE updated RN and PACKAGING TECHNICIAN and MADELINE Nathan faxed signed med rec and PASRR to [facility] to review. SW left msg for pt's spouse at [facility] and spouse was aware that pt would likely d/c to [facility] today. Plan: Patient to d/c to [facility] today around 1300 for IV-Abx before return to [facility]. JERICHO Atkins
--- NOTE | 2019-12-11 13:30 | PC.NURSE ---
Nurse Note Patient alert this shift, oriented to self, place, time. Right heel boot placed on patient, who was amendable to heel boot use upon start of shift. Q2 turns this shift, with patient sometime declining turns. Patient declined PRITI wrap. Orders received for discharge. Patient aware of plan for discharge and agreeable to go to SNF. PICC line dressing changed by Gaurang Robledo RN. IV removed by same. PICC line heparin flushed prior to discharge. Patient transferred to patient's own wheelchair using sling, without incident. Patient then wheeled to hospital exit by transportation staff. At the time of discharge patient denied SOB/CP/NV or other difficulty with VSS. Report called to JIMBO Solis at receiving facility.
--- NOTE | 2019-12-12 13:15 | CM.DPC ---
DCP Cont: Faxed signed discharge summary to [facility] at fax # [phone] as requested. Fax confirmation scanned in. Venita Davila, [facility] Writer Producer
== END 2019-12-11 13:15 | DRG 539 ==
LOC: ED 16:20 → AC 18:00
PROVIDERS: Internal Medicine; Nurse Practitioner Adult Health; Admitting Provider Internal Medicine; Emergency Provider Nurse Practitioner Family; Family Provider Internal Medicine; PCP Internal Medicine; Visit Provider Internal Medicine
DX: M86.171 Other acute osteomyelitis, right ankle and foot (principal); L89.614 Pressure ulcer of right heel, stage 4; N39.0 Urinary tract infection, site not specified; F03.91 Unspecified dementia, unspecified severity, with behavioral disturbance; G62.0 Drug-induced polyneuropathy; E86.0 Dehydration; I10 Essential (primary) hypertension; R32 Unspecified urinary incontinence; N40.1 Benign prostatic hyperplasia with lower urinary tract symptoms; T45.1X5D Adverse effect of antineoplastic and immunosuppressive drugs, subsequent encounter; E87.6 Hypokalemia; I89.0 Lymphedema, not elsewhere classified; Z85.46 Personal history of malignant neoplasm of prostate
CPT/HCPCS: 36415; 36569; 36592; 71045; 73620; 80048; 80053; 80202; 81001; 83605; 83690; 83735; 84145; 85025; 85610; 85651; 85730; 86140; 87040; 87150; 87186; 87205; 96365; 99213; 99284; G0378; J0744; J1335; J1642; J1644; J3480

== ENCOUNTER → 2019-12-13 09:54 | Outpatient (ROUT) | payer MEDICARE, SELFPAY ==
[2019-12-08 19:52] VITALS: BMI 21.7
[2019-12-13 09:59] LABS: Add Manual Diff / Slide Review NO; Basophils Absolute Auto 0 /uL (0-100); Basophils Percent Auto 0.6 % (0-2); Eosinophils Absolute Auto 400 /uL (0-450); Eosinophils Percent Auto 5.9 % (2-4); Hematocrit 36.3 % (41-53); Hemoglobin 12.3 g/dL (13.5-17.5); Lymphocytes Absolute Auto 1000 /uL (1100-4500); Lymphocytes Percent Auto 15.7 % (25-40); Mean Corpuscular HGB Conc 33.8 % (30-36); Mean Corpuscular Hemoglobin 29.7 PG (26-34); Monocytes Absolute Auto 700 /uL (0-900); Monocytes Percent Auto 10.6 % (3-14); Neutrophils Absolute Auto 4300 /uL (1500-7000); Neutrophils Percent Auto 67.2 % (50-75); Platelet Count 185 X10^3/uL (150-400); Red Blood Cell Count 4.13 X10^6/uL (4.5-5.9); Red Cell Distribution Width 16.2 % (11.6-14.8); White Blood Cell Count 6.4 X10^3/uL (4.5-11.0)
[2019-12-13 10:04] LABS: BUN Creatinine Ratio 23.3 (6-22); Blood Urea Nitrogen 28 mg/dL (9-20); Calcium 9.2 mg/dL (8.4-10.2); Carbon Dioxide 24 mmol/L (22-32); Chloride 107 mmol/L (98-107); Estimated Glomerular Filt Rate 58.1 mL/min (>60); Glucose 91 mg/dL (80-110); HEMOLYSIS < 15 (0-50); Potassium 3.9 mmol/L (3.4-5.1); Sodium 141 mmol/L (137-145)
[2019-12-13 19:13] LABS: Vancomycin Trough 24.6 ug/mL (10-20)
== END ==
PROVIDERS: Family Provider Internal Medicine; PCP Internal Medicine; Visit Provider Internal Medicine
DX: Z51.81 Encounter for therapeutic drug level monitoring (principal)
CPT/HCPCS: 80048; 80202; 85025

== ENCOUNTER → 2019-12-14 12:47 | Outpatient (ROUT) | payer MEDICARE, SELFPAY ==
[2019-12-08 19:52] VITALS: BMI 21.7
[2019-12-14 13:04] LABS: Blood Urea Nitrogen 29 mg/dL (9-20); Calcium 8.9 mg/dL (8.4-10.2); Carbon Dioxide 27 mmol/L (22-32); Chloride 106 mmol/L (98-107); Estimated Glomerular Filt Rate > 60.0 mL/min (>60); Glucose 80 mg/dL (80-110); HEMOLYSIS < 15 (0-50); Potassium 3.9 mmol/L (3.4-5.1); Sodium 140 mmol/L (137-145)
[2019-12-14 13:09] LABS: Vancomycin Trough 19.5 ug/mL (10-20)
== END ==
PROVIDERS: Family Provider Internal Medicine; PCP Internal Medicine; Visit Provider Internal Medicine
DX: M86.9 Osteomyelitis, unspecified (principal)
CPT/HCPCS: 80048; 80202

== ENCOUNTER → 2019-12-15 13:17 | Outpatient (CLI) | payer MEDICARE, SELFPAY ==
[2019-12-08 19:52] VITALS: BMI 21.7
[2019-12-15 13:27] LABS: Add Manual Diff / Slide Review NO; Basophils Absolute Auto 0 /uL (0-100); Basophils Percent Auto 0.5 % (0-2); Eosinophils Absolute Auto 300 /uL (0-450); Eosinophils Percent Auto 5.1 % (2-4); Hematocrit 33.7 % (41-53); Hemoglobin 11.5 g/dL (13.5-17.5); INR 1.1 (0.9-1.3); Lymphocytes Absolute Auto 1200 /uL (1100-4500); Mean Corpuscular HGB Conc 34.2 % (30-36); Mean Corpuscular Hemoglobin 30.2 PG (26-34); Mean Corpuscular Volume 88.3 fL (80-100); Monocytes Absolute Auto 600 /uL (0-900); Neutrophils Absolute Auto 4200 /uL (1500-7000); Neutrophils Percent Auto 66.4 % (50-75); Platelet Count 116 X10^3/uL (150-400); Prothrombin Time 12.8 SECONDS (10.1-12.7); Red Blood Cell Count 3.82 X10^6/uL (4.5-5.9); Red Cell Distribution Width 15.8 % (11.6-14.8); White Blood Cell Count 6.3 X10^3/uL (4.5-11.0)
[2019-12-15 13:33] LABS: BUN Creatinine Ratio 29.1 (6-22); Blood Urea Nitrogen 32 mg/dL (9-20); Calcium 8.9 mg/dL (8.4-10.2); Carbon Dioxide 25 mmol/L (22-32); Chloride 106 mmol/L (98-107); Estimated Glomerular Filt Rate > 60.0 mL/min (>60); Glucose 83 mg/dL (80-110); HEMOLYSIS 59 (0-50); Potassium 4.1 mmol/L (3.4-5.1); Sodium 140 mmol/L (137-145)
[2019-12-15 14:00] LABS: Vancomycin Trough 12.3 ug/mL (10-20)
== END ==
PROVIDERS: Family Provider Internal Medicine; PCP Internal Medicine; Visit Provider Internal Medicine
DX: L89.614 Pressure ulcer of right heel, stage 4 (principal); M86.471 Chronic osteomyelitis with draining sinus, right ankle and foot; I73.9 Peripheral vascular disease, unspecified
CPT/HCPCS: 11042; 80048; 80202; 85025; 85610

== ENCOUNTER → 2019-12-16 07:38 | Outpatient (ROUT) | payer MEDICARE, SELFPAY ==
[2019-12-08 19:52] VITALS: BMI 21.7
[2019-12-16 07:55] LABS: BUN Creatinine Ratio 25.5 (6-22); Blood Urea Nitrogen 28 mg/dL (9-20); Calcium 8.7 mg/dL (8.4-10.2); Carbon Dioxide 27 mmol/L (22-32); Chloride 106 mmol/L (98-107); Estimated Glomerular Filt Rate > 60.0 mL/min (>60); Glucose 77 mg/dL (80-110); HEMOLYSIS < 15 (0-50); Potassium 3.5 mmol/L (3.4-5.1); Sodium 140 mmol/L (137-145)
[2019-12-16 08:00] LABS: Vancomycin Trough 16.9 ug/mL (10-20)
== END ==
PROVIDERS: Family Provider Internal Medicine; PCP Internal Medicine; Visit Provider Internal Medicine
DX: T36.8X5A Adverse effect of other systemic antibiotics, initial encounter (principal)
CPT/HCPCS: 80048; 80202

== ENCOUNTER → 2019-12-21 11:16 | Outpatient (ROUT) | payer MEDICARE, SELFPAY ==
[2019-12-08 19:52] VITALS: BMI 21.7
[2019-12-21 11:37] LABS: Blood Urea Nitrogen 26 mg/dL (9-20); Carbon Dioxide 24 mmol/L (22-32); Chloride 107 mmol/L (98-107); Estimated Glomerular Filt Rate > 60.0 mL/min (>60); Glucose 87 mg/dL (80-110); HEMOLYSIS < 15 (0-50); Potassium 3.2 mmol/L (3.4-5.1); Sodium 141 mmol/L (137-145)
== END ==
PROVIDERS: Family Provider Internal Medicine; PCP Internal Medicine; Visit Provider Internal Medicine
DX: M86.171 Other acute osteomyelitis, right ankle and foot (principal); B95.62 Methicillin resistant Staphylococcus aureus infection as the cause of diseases classified elsewhere; I89.0 Lymphedema, not elsewhere classified
CPT/HCPCS: 80048; 80202

== ENCOUNTER → 2019-12-22 15:53 | Outpatient (CLI) | payer MEDICARE, SELFPAY ==
[2019-12-08 19:52] VITALS: BMI 21.7
== END ==
PROVIDERS: Family Provider Internal Medicine; PCP Internal Medicine; Referring Provider Internal Medicine; Visit Provider Family Medicine
DX: M86.471 Chronic osteomyelitis with draining sinus, right ankle and foot (principal); L89.614 Pressure ulcer of right heel, stage 4; F01.50 Vascular dementia, unspecified severity, without behavioral disturbance, psychotic disturbance, mood disturbance, and anxiety
CPT/HCPCS: 11042

== ENCOUNTER → 2019-12-26 09:43 | Outpatient (ROUT) | payer MEDICARE, SELFPAY ==
[2019-12-08 19:52] VITALS: BMI 21.7
[2019-12-26 09:51] LABS: INR 1.2 (0.9-1.3); Prothrombin Time 13.3 SECONDS (10.1-12.7)
[2019-12-26 09:59] LABS: Blood Urea Nitrogen 28 mg/dL (9-20); Calcium 8.7 mg/dL (8.4-10.2); Carbon Dioxide 24 mmol/L (22-32); Chloride 107 mmol/L (98-107); Estimated Glomerular Filt Rate > 60.0 mL/min (>60); Glucose 101 mg/dL (80-110); HEMOLYSIS < 15 (0-50); Potassium 3.1 mmol/L (3.4-5.1); Sodium 143 mmol/L (137-145)
[2019-12-26 10:02] LABS: Vancomycin Trough 9.7 ug/mL (10-20)
== END ==
PROVIDERS: Family Provider Internal Medicine; PCP Internal Medicine; Visit Provider Internal Medicine
DX: M86.171 Other acute osteomyelitis, right ankle and foot (principal); B95.62 Methicillin resistant Staphylococcus aureus infection as the cause of diseases classified elsewhere; I89.0 Lymphedema, not elsewhere classified
CPT/HCPCS: 80048; 80202; 85610

== ENCOUNTER 2019-12-27 07:37 | Emergency (ER) | payer MEDICARE, SELFPAY ==
[2019-12-08 19:52] VITALS: BMI 21.7
[2019-12-27 07:43] VITALS: BP 141/78; PULSE 90; RESP 18; TEMP 36.6; O2SAT 90
--- NOTE | 2019-12-27 07:44 | DI.US.S_ITS ---
PROCEDURE: [facility] VENOUS LOW EXTREM RT INDICATIONS: SWELLING RIGHT LEG, CHRONIC TECHNIQUE: Real-time imaging, as well as color and pulse Doppler interrogation, were performed of the lower extremity deep veins from the inguinal ligament to the popliteal fossa. COMPARISON: [facility], [facility] VENOUS LOW EXTREM RT, 10/08/2019, 16:59. [facility], [facility] VENOUS LOW EXTREM RT, 01/18/2019, 8:17. FINDINGS: The common femoral, femoral and popliteal veins are normally compressible, and free of intraluminal thrombus. Color and pulse Doppler demonstrate normal phasic intraluminal flow. There is normal augmentation response to distal compression maneuver. IMPRESSION: No DVT found. Dictated by: Marcos Pope M.D. on 12/27/2019 at 9:16 Approved by: Marcos Pope M.D. on 12/27/2019 at 9:16
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
--- NOTE | 2019-12-27 08:07 | DI.CT.S_ITS ---
PROCEDURE: CT HEAD/BRAIN WO CON INDICATIONS: behavioral issues. TECHNIQUE: Noncontrast 4.5 mm thick angled axial sections acquired from the foramen magnum to the vertex, with coronal and sagittal reformats. For radiation dose reduction, the following was used: automated exposure control, adjustment of mA and/or kV according to patient size. COMPARISON: [facility], CT, CT HEAD/BRAIN WO CON, 10/08/2019, 15:44. FINDINGS: Image quality: Excellent. CSF spaces: Basal cisterns are patent. No extra-axial fluid collections. The ventricles are symmetric in size and shape. Brain: No intracranial bleeds or masses. There is cerebral volume loss for age, with resultant ventricular and sulcal prominence. There are periventricular and deep white matter chronic small vessel ischemic changes. There is intracranial internal carotid artery and vertebral artery atherosclerosis. Skull and face: Calvarium and visualized facial bones appear intact, without suspicious lesions. Sinuses: Visualized sinuses and mastoids are clear. IMPRESSION: No acute intracranial disease process. Dictated by: Massiel Lloyd MD, PhD on 12/27/2019 at 8:20 Approved by: Massiel Lloyd MD, PhD on 12/27/2019 at 8:22
[2019-12-27 08:37] LABS: Add Manual Diff / Slide Review NO; Basophils Absolute Auto 0 /uL (0-100); Basophils Percent Auto 0.7 % (0-2); Eosinophils Absolute Auto 300 /uL (0-450); Eosinophils Percent Auto 6.3 % (2-4); Hematocrit 32.3 % (41-53); Hemoglobin 11.1 g/dL (13.5-17.5); Lymphocytes Absolute Auto 700 /uL (1100-4500); Lymphocytes Percent Auto 14.1 % (25-40); Mean Corpuscular HGB Conc 34.3 % (30-36); Mean Corpuscular Hemoglobin 30.2 PG (26-34); Mean Corpuscular Volume 88.1 fL (80-100); Monocytes Absolute Auto 600 /uL (0-900); Monocytes Percent Auto 11.5 % (3-14); Neutrophils Absolute Auto 3300 /uL (1500-7000); Neutrophils Percent Auto 67.4 % (50-75); Platelet Count 183 X10^3/uL (150-400); Red Blood Cell Count 3.67 X10^6/uL (4.5-5.9); White Blood Cell Count 4.9 X10^3/uL (4.5-11.0)
[2019-12-27 08:47] LABS: BUN Creatinine Ratio 35.6 (6-22); Blood Urea Nitrogen 32 mg/dL (9-20); Calcium 8.6 mg/dL (8.4-10.2); Carbon Dioxide 28 mmol/L (22-32); Chloride 107 mmol/L (98-107); Estimated Glomerular Filt Rate > 60.0 mL/min (>60); Glucose 90 mg/dL (80-110); HEMOLYSIS < 15 (0-50); Potassium 3.1 mmol/L (3.4-5.1); Sodium 141 mmol/L (137-145)
[2019-12-27 10:58] VITALS: BP 132/81; PULSE 72; RESP 16; O2SAT 99
== END 2019-12-27 11:15 | disposition home or self-care (01) ==
PROVIDERS: Emergency Provider Emergency Medicine; Family Provider Internal Medicine; PCP Internal Medicine
DX: F91.9 Conduct disorder, unspecified (principal); F03.90 Unspecified dementia, unspecified severity, without behavioral disturbance, psychotic disturbance, mood disturbance, and anxiety; R60.9 Edema, unspecified
CPT/HCPCS: 36415; 70450; 80048; 81003; 85025; 93971; 99283; 99284

== ENCOUNTER → 2019-12-29 13:51 | Outpatient (CLI) | payer MEDICARE, SELFPAY ==
[2019-12-08 19:52] VITALS: BMI 21.7
== END ==
PROVIDERS: Family Provider Internal Medicine; PCP Internal Medicine; Referring Provider Internal Medicine; Visit Provider Family Medicine
DX: L89.614 Pressure ulcer of right heel, stage 4 (principal); M86.471 Chronic osteomyelitis with draining sinus, right ankle and foot; R60.0 Localized edema; F01.51 Vascular dementia, unspecified severity, with behavioral disturbance
CPT/HCPCS: 99212; 99214

== ENCOUNTER → 2020-01-11 14:03 | Outpatient (CLI) | payer MEDICARE, SELFPAY ==
[2019-12-08 19:52] VITALS: BMI 21.7
== END ==
PROVIDERS: Family Provider Internal Medicine; PCP Internal Medicine; Referring Provider Internal Medicine; Visit Provider Family Medicine
DX: L89.614 Pressure ulcer of right heel, stage 4 (principal); I73.9 Peripheral vascular disease, unspecified; M86.471 Chronic osteomyelitis with draining sinus, right ankle and foot; F01.51 Vascular dementia, unspecified severity, with behavioral disturbance
CPT/HCPCS: 97597

== ENCOUNTER → 2020-01-17 15:57 | Outpatient (CLI) | payer MEDICARE, SELFPAY ==
[2019-12-08 19:52] VITALS: BMI 21.7
== END ==
PROVIDERS: Family Provider Internal Medicine; PCP Internal Medicine; Referring Provider Internal Medicine; Visit Provider Family Medicine
DX: L89.614 Pressure ulcer of right heel, stage 4 (principal); M86.471 Chronic osteomyelitis with draining sinus, right ankle and foot; I73.9 Peripheral vascular disease, unspecified; F01.51 Vascular dementia, unspecified severity, with behavioral disturbance
CPT/HCPCS: 99212

== ENCOUNTER → 2020-05-14 02:12 | Outpatient (ROUT) | payer MEDICARE, SELFPAY ==
[2019-12-08 19:52] VITALS: BMI 21.7
[2020-05-14 02:17] LABS: Bilirubin Urine UA NEGATIVE (NEGATIVE); Color Urine UA YELLOW; Glucose Urine UA NEGATIVE (Negative); Ketones Urine UA NEGATIVE (NEGATIVE); Leukocyte Esterase Urine UA 3+ (NEGATIVE); Nitrite Urine UA NEGATIVE (Negative); Occult Blood Urine UA 2+ (Negative); Protein Urine UA 2+ (Negative); Urobilinogen Urine UA 0.2 E.U./dL (0.2); pH Urine UA 8.5 (4.5-8.0)
[2020-05-14 02:18] LABS: Appearance Urine UA Cloudy
[2020-05-14 02:29] LABS: Bacteria Urine Many (>30); RBC Urine 0-1/HPF (0-5/HPF); Triple Phosphate Crystal Urine Few; WBC Urine 10-30/HPF (0-5/HPF)
[2020-05-14 02:30] LABS: Culture Indicated Urine Specimen Cultured
== END ==
PROVIDERS: Family Provider Internal Medicine; PCP Internal Medicine; Visit Provider Internal Medicine
DX: R31.9 Hematuria, unspecified (principal); R53.83 Other fatigue
CPT/HCPCS: 81001; 87077; 87086; 87186

== ENCOUNTER → 2020-06-06 14:45 | Outpatient (CLI) | payer MEDICARE, SELFPAY ==
[2019-12-08 19:52] VITALS: BMI 21.7
== END ==
PROVIDERS: Family Provider Internal Medicine; PCP Internal Medicine; Referring Provider Internal Medicine; Visit Provider Family Medicine
DX: L84 Corns and callosities (principal); I73.9 Peripheral vascular disease, unspecified; F01.51 Vascular dementia, unspecified severity, with behavioral disturbance; M79.671 Pain in right foot
CPT/HCPCS: 11055; 99213

== ENCOUNTER → 2020-09-18 13:33 | Outpatient (CLI) | payer MEDICARE, SELFPAY ==
[2019-12-08 19:52] VITALS: BMI 21.7
== END ==
PROVIDERS: Family Provider Internal Medicine; PCP Internal Medicine; Referring Provider Internal Medicine; Visit Provider Family Medicine
DX: L03.317 Cellulitis of buttock (principal); Z79.899 Other long term (current) drug therapy; F01.51 Vascular dementia, unspecified severity, with behavioral disturbance; L89.313 Pressure ulcer of right buttock, stage 3
CPT/HCPCS: 11043; 87070; 87075; 87077; 87186; 87205; 99214

== ENCOUNTER → 2020-09-19 11:11 | Outpatient (CLI) | payer MEDICARE, SELFPAY ==
[2019-12-08 19:52] VITALS: BMI 21.7
--- NOTE | 2020-09-19 | DI.RAD.S_ITS ---
PROCEDURE: XR PELVIS 1-2V INDICATIONS: PELVIS PAIN TECHNIQUE: 1 view(s) of the pelvis acquired. COMPARISON: [facility], CR, XR KUB, 01/21/2019, 17:42. FINDINGS: Bones: No fractures or dislocations. No suspicious bony lesions. Moderate right and mild left hip joint narrowing with periarticular osteophytosis. Degenerative disc and facet disease involves the inferior lumbar spine. Soft tissues: Visualized bowel gas pattern is normal. No suspicious soft tissue calcifications. IMPRESSION: Moderate right and mild left hip joint degeneration. Dictated by: Calvin Cid Chip Interpreted: Dominguez Yen MD on 09/19/2020 at 12:15 Approved by: Dominguez Yen M.D. on 09/19/2020 at 14:52
== END ==
PROVIDERS: Family Provider Internal Medicine; PCP Internal Medicine; Referring Provider Family Medicine; Visit Provider Family Medicine
DX: L89.314 Pressure ulcer of right buttock, stage 4 (principal); Z79.899 Other long term (current) drug therapy
CPT/HCPCS: 72170; 93005; 93010

== ENCOUNTER → 2020-09-20 07:36 | Outpatient (ROUT) | payer MEDICARE, SELFPAY ==
[2019-12-08 19:52] VITALS: BMI 21.7
[2020-09-20 08:13] LABS: Add Manual Diff / Slide Review NO; Basophils Absolute Auto 0 /uL (0-100); Basophils Percent Auto 0.6 % (0-2); Eosinophils Absolute Auto 200 /uL (0-450); Eosinophils Percent Auto 4.4 % (2-4); Hematocrit 32.1 % (41-53); Hemoglobin 10.5 g/dL (13.5-17.5); Lymphocytes Absolute Auto 1200 /uL (1100-4500); Lymphocytes Percent Auto 24.4 % (25-40); Mean Corpuscular HGB Conc 32.8 % (30-36); Mean Corpuscular Volume 91.6 fL (80-100); Monocytes Absolute Auto 600 /uL (0-900); Monocytes Percent Auto 11.4 % (3-14); Neutrophils Absolute Auto 3000 /uL (1500-7000); Neutrophils Percent Auto 59.2 % (50-75); Platelet Count 132 X10^3/uL (150-400); Red Blood Cell Count 3.51 X10^6/uL (4.5-5.9); Red Cell Distribution Width 12.9 % (11.6-14.8)
[2020-09-20 08:29] LABS: Alanine Aminotransferase 7 IU/L (<50); Albumin 3.4 g/dL (3.5-5.0); Albumin Globulin Ratio 1.2 (1.0-2.8); Alkaline Phosphatase 88 U/L (38-126); Aspartate Aminotransferase 20 IU/L (17-59); BUN Creatinine Ratio 25.8 (6-22); Bilirubin Total 0.5 mg/dL (0.2-1.3); Blood Urea Nitrogen 25 mg/dL (9-20); C-Reactive Protein Quant 4.4 mg/dL (<1.0); Calcium 8.5 mg/dL (8.4-10.2); Carbon Dioxide 28 mmol/L (22-32); Chloride 106 mmol/L (98-107); Estimated Glomerular Filt Rate > 60.0 mL/min (>60); Globulin 2.9 g/dL (1.7-4.1); Glucose 85 mg/dL (80-110); HEMOLYSIS < 15 (0-50); Potassium 3.6 mmol/L (3.4-5.1); Sodium 138 mmol/L (137-145); Total Protein 6.3 g/dL (6.3-8.2)
[2020-09-20 08:35] LABS: Prealbumin 14.1 mg/dL (17.6-36.0)
[2020-09-20 08:36] LABS: Erythrocyte Sedimentation Rate 45 MM/HR (0-15)
== END ==
PROVIDERS: Family Provider Internal Medicine; PCP Internal Medicine; Visit Provider Family Medicine
DX: L89.314 Pressure ulcer of right buttock, stage 4 (principal); L03.317 Cellulitis of buttock
CPT/HCPCS: 36415; 80053; 84134; 85025; 85651; 86140

== ENCOUNTER → 2020-09-24 15:04 | Outpatient (CLI) | payer MEDICARE, SELFPAY ==
[2019-12-08 19:52] VITALS: BMI 21.7
== END ==
PROVIDERS: Family Provider Internal Medicine; PCP Internal Medicine; Referring Provider Internal Medicine; Visit Provider Family Medicine
DX: L89.313 Pressure ulcer of right buttock, stage 3 (principal); F01.51 Vascular dementia, unspecified severity, with behavioral disturbance; B96.29 Other Escherichia coli [E. coli] as the cause of diseases classified elsewhere; Z16.12 Extended spectrum beta lactamase (ESBL) resistance; Z79.899 Other long term (current) drug therapy; B96.4 Proteus (mirabilis) (morganii) as the cause of diseases classified elsewhere; L08.9 Local infection of the skin and subcutaneous tissue, unspecified
CPT/HCPCS: 11042; 99214

== ENCOUNTER 2020-09-29 20:15 | Inpatient (IN) | payer MEDICARE, SELFPAY ==
[2019-12-08 19:52] VITALS: BMI 21.7
[2020-09-29] VITALS (11 sets, daily range): BP systolic 85–105; BP diastolic 51–56; PULSE 69–85; RESP 18; TEMP 37–39.3; O2SAT 95–99
--- NOTE | 2020-09-29 20:25 | DI.RAD.S_ITS ---
PROCEDURE: XR CHEST 1V INDICATIONS: cough TECHNIQUE: One view of the chest was acquired. COMPARISON: [facility], CR, XR CHEST 1V, 12/08/2019, 16:30. [facility], CR, XR CHEST 1V, 12/09/2019, 13:09. FINDINGS: Surgical changes and devices: None. Lungs and pleura: The medial lung apices are partially obscured by the patient's neck soft tissues. No definite pneumothorax. No pleural effusions. Visualized lungs demonstrate no acute consolidation. Mediastinum: Mediastinal contours appear unchanged. Heart size is normal. Bones and chest wall: No suspicious bony lesions. Overlying soft tissues appear unremarkable. IMPRESSION: 1. No definite acute cardiopulmonary disease, with the medial lung apices partially obscured. Dictated by: Theodore Rivas M.D. on 09/29/2020 at 21:33 Approved by: Theodore Rivas M.D. on 09/29/2020 at 21:34
--- NOTE | 2020-09-29 20:41 | ED.FEVER ---
HPI - Fever General Chief Complaint: Fever Stated Complaint: Fever Time Seen by Provider: 09/29/20 20:22 Source: EMS and other Mode of arrival: EMS Limitations: no limitations History of Present Illness HPI Narrative: Patient transferred here from [facility]. Complains of fever. Tylenol given prior to arrival. Patient is DNR DNI, comfort measures. At this time patient is awake and responsive to name only. Awaiting to call family, current phone number is out of service. Sepsis protocol started. Patient has been on Cipro for for skin infection. Patient does have decubital ulcer on the right gluteus. Patient log-rolled for examination of the back. No reports of nausea vomiting diarrhea. No cough congestion. Patient does have history of dementia so according to senior care fever is the chief complaint. Baseline at answering questions MD complaint: fever Related Data Home Medications Medication Instructions Recorded Confirmed aspirin 81 mg PO DAILY 12/15/18 09/30/20 cholecalciferol (vitamin D3) 1,000 unit PO DAILY 12/15/18 09/30/20 [Vitamin D3] cyanocobalamin (vitamin B-12) 500 mcg PO DAILY 12/15/18 09/30/20 [Vitamin B-12] acetaminophen [Tylenol Arthritis 650 mg PO TID 06/20/19 09/30/20 Pain] ascorbic acid (vitamin C) 500 mg PO DAILY 12/08/19 09/30/20 clotrimazole 1 applic TOPICAL TID PRN 12/08/19 09/30/20 ciprofloxacin HCl 750 mg PO Q12H 09/30/20 09/30/20 nystatin 5 applic TOPICAL TID PRN 09/30/20 09/30/20 quetiapine [Seroquel] 25 mg PO BID 09/30/20 09/30/20 Previous Rx's Medication Instructions Recorded tamsulosin [Flomax] 0.4 mg PO DAILY #30 cap 01/26/19 furosemide 40 mg PO DAILY #0 tab 10/11/19 bisacodyl 10 mg VT DAILY PRN #10 ea 12/11/19 docusate sodium [DOK] 100 mg PO BID PRN #60 cap 12/11/19 potassium chloride [Klor-Con M20] 40 meq PO DAILYCC #30 tab 12/11/19 Allergies Allergy/AdvReac Type Severity Reaction Status Date / Time hydromorphone [From Gómezid] Allergy Verified 09/29/20 23:07 Review of Systems Review of Systems Narrative: GENERAL: Complaint malaise, fever, HEENT: Denies sinus pain, ear pain, sore throat, difficulty swallowing RESPIRATORY: Denies dyspnea, cough CARDIOVASCULAR: Denies chest pain, palpitations, edema, GASTROINTESTINAL: Denies nausea, vomiting, abdominal pain, diarrhea, constipation, melena. 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) Dementia with behavioral disturbance (Acute) History of prostate cancer (Chronic) HTN (hypertension) (Chronic) Hypokalemia (Acute) Incontinence (Chronic) Lymphedema of right lower extremity (Acute) MRSA cellulitis of right foot (Acute) Recurrent urinary tract infection (Acute) 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 Well-nourished, well-developed patient, in no distress, not toxic not dyspneic HEAD: Normocephalic. EYES: Pupils equal round and reactive. No scleral icterus. No injection no discharge ENT: Mucous membranes are dry. No drooling no tongue elevation no trismus no malocclusion NECK: Trachea midline. Non tender CARDIOVASCULAR: Regular rate and rhythm without murmurs, gallops, or rubs. RESPIRATORY: Clear to auscultation. Breath sounds equal bilaterally. No wheezes, rales, or rhonchi. GASTROINTESTINAL: Abdomen soft, non-tender, nondistended. EXTREMITIES: No gross deformities. BACK: Nontender without deformity or crepitance. No flank tenderness. There is of right gluteal decubitus ulcer with overlying dressing NEURO: Answers to name only. Able to tell me his name SKIN: Warm and dry PSYCH: Not anxious, is cooperative, does follow commands Initial Vital Signs Initial Vital Signs: Vital Signs Temperature 102.7 F H 09/29/20 20:21 Pulse Rate 85 09/29/20 20:21 Respiratory Rate 18 09/29/20 20:21 Blood Pressure 105/55 L 09/29/20 20:21 Pulse Oximetry 95 09/29/20 20:21 Course Course Course Narrative: No new issues concerns during course of stay Decision to Admit Date: 09/29/20 Decision to Admit time: 22:43 Orders Ordered: ED Orders 09/29/20 20:20 COVID19 -ED/INPAT/OR/L&D Stat Complete Blood Count AUTO DIFF Stat Comprehensive Metabolic Panel Stat Lactate (Lactic Acid) Stat Partial Thromboplastin Time Stat Procalcitonin Stat Prothrombin Time INR Stat 09/29/20 20:25 XR chest 1V Stat 09/29/20 20:40 Blood Culture Stat Respiratory Panel (Film Array) Stat 09/29/20 20:50 Urinalysis and Microscopic Stat Acetaminophen (Tylenol) 650 mg PO Q6HR PRN PRN Reason: Fever/Mild Pain (1-3) Acetaminophen (Tylenol) 650 mg VT Q6HR PRN PRN Reason: Fever/Mild Pain (1-3) Aspirin (Aspirin Ec) 81 mg PO DAILY MELBA Bisacodyl (Dulcolax) 10 mg VT DAILY PRN PRN Reason: Constipation Clotrimazole (Lotrimin 1% Cream) 1 applic TOP TID PRN PRN Reason: groin rash Docusate Sodium (Colace) 100 mg PO BID MELBA Enoxaparin Sodium (Lovenox) 40 mg SUBCUT DAILY [facility] Sodium Chloride (Normal Saline 0.9%) 1,000 mls @ 200 mls/hr IV CONT MELBA Last Infusion: 09/29/20 23:42 Dose: 0 mls/hr Documented by: Admin: 09/29/20 20:52 Dose: 200 mls/hr Documented by: NICOLASA Lactated Ringer's (Lactated Ringers) 1,000 mls @ 125 mls/hr IV CONT [facility] Last Admin: 09/29/20 23:57 Dose: 125 mls/hr Documented by: YUSUF Ampicillin Sodium/Sulbactam (Sodium 3 gm/ Sodium Chloride) 100 mls @ 100 mls/hr IV Q6H [facility] Last Admin: 09/30/20 00:00 Dose: 100 mls/hr Documented by: YUSUF Magnesium Hydroxide (Milk Of Magnesia) 30 ml PO DAILY PRN PRN Reason: Constipation Naloxone HCl (Narcan) 0.2 mg IV Q2MIN PRN PRN Reason: Opiate Reversal Nystatin (Nystop) 5 applic TOP TID PRN PRN Reason: Rash Ondansetron HCl (Zofran) 4 mg IV Q8HR PRN PRN Reason: Nausea And Vomiting Polyethylene Glycol (Miralax) 17 gm PO DAILY PRN PRN Reason: Constipation Quetiapine Fumarate (Seroquel) 25 mg PO BID [facility] Tamsulosin HCl (Flomax) 0.4 mg PO DAILY [facility] Discontinued Medications Ceftriaxone Sodium/Dextrose (Rocephin) 2 gm in 50 mls @ 100 mls/hr IV NOW ONE Stop: 09/29/20 20:54 Last Infusion: 09/29/20 21:29 Dose: 0 mls/hr Documented by: Admin: 09/29/20 20:53 Dose: 100 mls/hr Documented by: NICOLASA Sodium Chloride (Normal Saline 0.9%) 1,000 mls @ 1,000 mls/hr IV BOLUS ONE Stop: 09/29/20 23:32 Last Infusion: 09/29/20 23:42 Dose: 1,000 mls/hr Documented by: Admin: 09/29/20 22:56 Dose: 1,000 mls/hr Documented by: NICOLASA Reevaluation(s) Reevaluation #1: Spoke with , , she has not seen patient since January of this year. States patient is hard of hearing. However will converse.. She agrees to observe here tonight for antibiotics and IV hydration Time: 22:44 Consultations Consultation #1: Spoke with Jayy hospitalist, will admit Time: 22:59 Vital Signs Vital signs: Vital Signs - 8 hr 09/29/20 20:21 09/29/20 21:26 09/29/20 21:30 Temperature 102.7 F H Pulse Rate 85 80 80 Respiratory Rate 18 Blood Pressure 105/55 L 97/56 L Pulse Oximetry 95 95 95 09/29/20 21:42 09/29/20 22:00 09/29/20 22:30 Temperature Pulse Rate 81 Respiratory Rate Blood Pressure 90/54 L 89/53 L Pulse Oximetry 09/29/20 22:32 09/29/20 22:34 09/29/20 22:43 Temperature 98.6 F Pulse Rate 70 69 Respiratory Rate Blood Pressure 85/51 L 91/52 L Pulse Oximetry 98 98 MDM - Fever Differential Diagnosis Differential diagnosis: Likely cellulitis, fever of unknown origin, community acquired pneumonia, viral infection, sepsis and other (UTI) Lab Data Attestation: I reviewed the patient's lab results. Result diagrams: 09/29/20 20:20 09/29/20 20:20 Labs: Lab Results 09/29/20 09/29/20 09/29/20 Range/Units 20:20 20:20 20:20 WBC 8.5 (4.5-11.0) X10^3/uL RBC 3.59 L (4.5-5.9) X10^6/uL Hgb 10.9 L (13.5-17.5) g/dL Hct 32.5 L (41-53) % MCV 90.6 (80-100) fL MCH 30.3 (26-34) PG MCHC 33.5 (30-36) % RDW 13.3 (11.6-14.8) % Plt Count 196 (150-400) X10^3/uL Neut % (Auto) 77.6 H (50-75) % Lymph % (Auto) 11.0 L (25-40) % Edmunds % (Auto) 9.7 (3-14) % Eos % (Auto) 1.3 L (2-4) % Baso % (Auto) 0.4 (0-2) % Neut # (Auto) 6600 (9378-9038) /uL Lymph # (Auto) 900 L (9365-4608) /uL Edmunds # (Auto) 800 (0-900) /uL Eos # (Auto) 100 (0-450) /uL Baso # (Auto) 0 (0-100) /uL PT (10.1-12.7) SECONDS INR (0.9-1.3) APTT (26.4-36.2) SECONDS Sodium 136 L (137-145) mmol/L Potassium 3.6 (3.4-5.1) mmol/L Chloride 106 (98-107) mmol/L Carbon Dioxide 26 (22-32) mmol/L BUN 29 H (9-20) mg/dL Creatinine 1.02 (0.66-1.25) mg/dL Estimated GFR > 60.0 (>60) mL/min BUN/Creatinine Ratio 28.4 H (6-22) Glucose 108 (80-110) mg/dL Lactate (0.7-2.1) mmol/L Calcium 8.3 L (8.4-10.2) mg/dL Magnesium (1.6-2.3) mg/dL Total Bilirubin 0.5 (0.2-1.3) mg/dL AST 32 (17-59) IU/L ALT 12 (<50) IU/L Alkaline Phosphatase 78 (38-126) U/L C-Reactive Protein (<1.0) mg/dL Total Protein 6.5 (6.3-8.2) g/dL Albumin 3.3 L (3.5-5.0) g/dL Globulin 3.2 (1.7-4.1) g/dL Albumin/Globulin Ratio 1.0 (1.0-2.8) Procalcitonin < 0.05 (<0.5) ng/mL Urine Color Urine Appearance Urine pH (4.5-8.0) Ur Specific [place] (1.000-1.035) Urine Protein (Negative) Urine Glucose (UA) (Negative) g/dL Urine Ketones (NEGATIVE) Urine Occult Blood (Negative) Urine Nitrate (Negative) Urine Bilirubin (NEGATIVE) Urine Urobilinogen (0.2) E.U./dL Ur Leukocyte Esterase (NEGATIVE) Urine RBC (0-5/HPF) Urine WBC (0-5/HPF) Urine Bacteria (None) Urine Mucus (Negative) Ur Culture Indicated? Chlamy pneumoniae PCR (Not Detect) Adenovirus (PCR) (Not Detect) B.parapertussis DNA PCR (Not Detect) Coronavirus OC43 (PCR) (Not Detect) Coronavirus HKU1 (PCR) (Not Detect) Coronavirus 229E (PCR) (Not Detect) COVID-19 PCR (Negative) Coronavirus NL63 (PCR) (Not Detect) Human Metapneumovir PCR (Not Detect) Influenza Type A (PCR) (Not Detect) Influenza Type B (PCR) (Not Detect) M. pneumoniae (PCR) (Not Detect) Parainfluenza 1 (PCR) (Not Detect) Parainfluenza 2 (PCR) (Not Detect) Parainfluenza 3 (PCR) (Not Detect) Parainfluenza 4 (PCR) (Not Detect) RSV (PCR) (Not Detect) Entero/Rhino (PCR) (Not Detect) 09/29/20 09/29/20 09/29/20 Range/Units 20:20 20:20 20:20 WBC (4.5-11.0) X10^3/uL RBC (4.5-5.9) X10^6/uL Hgb (13.5-17.5) g/dL Hct (41-53) % MCV (80-100) fL MCH (26-34) PG MCHC (30-36) % RDW (11.6-14.8) % Plt Count (150-400) X10^3/uL Neut % (Auto) (50-75) % Lymph % (Auto) (25-40) % Edmunds % (Auto) (3-14) % Eos % (Auto) (2-4) % Baso % (Auto) (0-2) % Neut # (Auto) (9285-7478) /uL Lymph # (Auto) (7703-9830) /uL Edmunds # (Auto) (0-900) /uL Eos # (Auto) (0-450) /uL Baso # (Auto) (0-100) /uL PT 14.6 H (10.1-12.7) SECONDS INR 1.3 (0.9-1.3) APTT 31 (26.4-36.2) SECONDS Sodium (137-145) mmol/L Potassium (3.4-5.1) mmol/L Chloride (98-107) mmol/L Carbon Dioxide (22-32) mmol/L BUN (9-20) mg/dL Creatinine (0.66-1.25) mg/dL Estimated GFR (>60) mL/min BUN/Creatinine Ratio (6-22) Glucose (80-110) mg/dL Lactate 0.8 (0.7-2.1) mmol/L Calcium (8.4-10.2) mg/dL Magnesium (1.6-2.3) mg/dL Total Bilirubin (0.2-1.3) mg/dL AST (17-59) IU/L ALT (<50) IU/L Alkaline Phosphatase (38-126) U/L C-Reactive Protein (<1.0) mg/dL Total Protein (6.3-8.2) g/dL Albumin (3.5-5.0) g/dL Globulin (1.7-4.1) g/dL Albumin/Globulin Ratio (1.0-2.8) Procalcitonin (<0.5) ng/mL Urine Color Urine Appearance Urine pH (4.5-8.0) Ur Specific [place] (1.000-1.035) Urine Protein (Negative) Urine Glucose (UA) (Negative) g/dL Urine Ketones (NEGATIVE) Urine Occult Blood (Negative) Urine Nitrate (Negative) Urine Bilirubin (NEGATIVE) Urine Urobilinogen (0.2) E.U./dL Ur Leukocyte Esterase (NEGATIVE) Urine RBC (0-5/HPF) Urine WBC (0-5/HPF) Urine Bacteria (None) Urine Mucus (Negative) Ur Culture Indicated? Chlamy pneumoniae PCR (Not Detect) Adenovirus (PCR) (Not Detect) B.parapertussis DNA PCR (Not Detect) Coronavirus OC43 (PCR) (Not Detect) Coronavirus HKU1 (PCR) (Not Detect) Coronavirus 229E (PCR) (Not Detect) COVID-19 PCR Negative (Negative) Coronavirus NL63 (PCR) (Not Detect) Human Metapneumovir PCR (Not Detect) Influenza Type A (PCR) (Not Detect) Influenza Type B (PCR) (Not Detect) M. pneumoniae (PCR) (Not Detect) Parainfluenza 1 (PCR) (Not Detect) Parainfluenza 2 (PCR) (Not Detect) Parainfluenza 3 (PCR) (Not Detect) Parainfluenza 4 (PCR) (Not Detect) RSV (PCR) (Not Detect) Entero/Rhino (PCR) (Not Detect) 09/29/20 09/29/20 09/29/20 Range/Units 20:20 20:35 20:40 WBC (4.5-11.0) X10^3/uL RBC (4.5-5.9) X10^6/uL Hgb (13.5-17.5) g/dL Hct (41-53) % MCV (80-100) fL MCH (26-34) PG MCHC (30-36) % RDW (11.6-14.8) % Plt Count (150-400) X10^3/uL Neut % (Auto) (50-75) % Lymph % (Auto) (25-40) % Edmunds % (Auto) (3-14) % Eos % (Auto) (2-4) % Baso % (Auto) (0-2) % Neut # (Auto) (7705-0038) /uL Lymph # (Auto) (5357-3109) /uL Edmunds # (Auto) (0-900) /uL Eos # (Auto) (0-450) /uL Baso # (Auto) (0-100) /uL PT (10.1-12.7) SECONDS INR (0.9-1.3) APTT (26.4-36.2) SECONDS Sodium (137-145) mmol/L Potassium (3.4-5.1) mmol/L Chloride (98-107) mmol/L Carbon Dioxide (22-32) mmol/L BUN (9-20) mg/dL Creatinine (0.66-1.25) mg/dL Estimated GFR (>60) mL/min BUN/Creatinine Ratio (6-22) Glucose (80-110) mg/dL Lactate (0.7-2.1) mmol/L Calcium (8.4-10.2) mg/dL Magnesium 1.8 (1.6-2.3) mg/dL Total Bilirubin (0.2-1.3) mg/dL AST (17-59) IU/L ALT (<50) IU/L Alkaline Phosphatase (38-126) U/L C-Reactive Protein 3.4 H (<1.0) mg/dL Total Protein (6.3-8.2) g/dL Albumin (3.5-5.0) g/dL Globulin (1.7-4.1) g/dL Albumin/Globulin Ratio (1.0-2.8) Procalcitonin (<0.5) ng/mL Urine Color Urine Appearance Urine pH (4.5-8.0) Ur Specific [place] (1.000-1.035) Urine Protein (Negative) Urine Glucose (UA) (Negative) g/dL Urine Ketones (NEGATIVE) Urine Occult Blood (Negative) Urine Nitrate (Negative) Urine Bilirubin (NEGATIVE) Urine Urobilinogen (0.2) E.U./dL Ur Leukocyte Esterase (NEGATIVE) Urine RBC (0-5/HPF) Urine WBC (0-5/HPF) Urine Bacteria (None) Urine Mucus (Negative) Ur Culture Indicated? Chlamy pneumoniae PCR Not detected (Not Detect) Adenovirus (PCR) Not detected (Not Detect) B.parapertussis DNA PCR Not detected (Not Detect) Coronavirus OC43 (PCR) Not detected (Not Detect) Coronavirus HKU1 (PCR) Not detected (Not Detect) Coronavirus 229E (PCR) Not detected (Not Detect) COVID-19 PCR (Negative) Coronavirus NL63 (PCR) Not detected (Not Detect) Human Metapneumovir PCR Not detected (Not Detect) Influenza Type A (PCR) Not detected (Not Detect) Influenza Type B (PCR) Not detected (Not Detect) M. pneumoniae (PCR) Not detected (Not Detect) Parainfluenza 1 (PCR) Not detected (Not Detect) Parainfluenza 2 (PCR) Not detected (Not Detect) Parainfluenza 3 (PCR) Not detected (Not Detect) Parainfluenza 4 (PCR) Not detected (Not Detect) RSV (PCR) Not detected (Not Detect) Entero/Rhino (PCR) Not detected (Not Detect) 09/29/20 Range/Units 20:50 WBC (4.5-11.0) X10^3/uL RBC (4.5-5.9) X10^6/uL Hgb (13.5-17.5) g/dL Hct (41-53) % MCV (80-100) fL MCH (26-34) PG MCHC (30-36) % RDW (11.6-14.8) % Plt Count (150-400) X10^3/uL Neut % (Auto) (50-75) % Lymph % (Auto) (25-40) % Edmunds % (Auto) (3-14) % Eos % (Auto) (2-4) % Baso % (Auto) (0-2) % Neut # (Auto) (8286-6821) /uL Lymph # (Auto) (0827-9322) /uL Edmunds # (Auto) (0-900) /uL Eos # (Auto) (0-450) /uL Baso # (Auto) (0-100) /uL PT (10.1-12.7) SECONDS INR (0.9-1.3) APTT (26.4-36.2) SECONDS Sodium (137-145) mmol/L Potassium (3.4-5.1) mmol/L Chloride (98-107) mmol/L Carbon Dioxide (22-32) mmol/L BUN (9-20) mg/dL Creatinine (0.66-1.25) mg/dL Estimated GFR (>60) mL/min BUN/Creatinine Ratio (6-22) Glucose (80-110) mg/dL Lactate (0.7-2.1) mmol/L Calcium (8.4-10.2) mg/dL Magnesium (1.6-2.3) mg/dL Total Bilirubin (0.2-1.3) mg/dL AST (17-59) IU/L ALT (<50) IU/L Alkaline Phosphatase (38-126) U/L C-Reactive Protein (<1.0) mg/dL Total Protein (6.3-8.2) g/dL Albumin (3.5-5.0) g/dL Globulin (1.7-4.1) g/dL Albumin/Globulin Ratio (1.0-2.8) Procalcitonin (<0.5) ng/mL Urine Color Yellow Urine Appearance Clear Urine pH 5.0 (4.5-8.0) Ur Specific [place] 1.025 (1.000-1.035) Urine Protein Trace H (Negative) Urine Glucose (UA) Negative (Negative) g/dL Urine Ketones Trace H (NEGATIVE) Urine Occult Blood Trace-lysed (Negative) Urine Nitrate Negative (Negative) Urine Bilirubin Negative (NEGATIVE) Urine Urobilinogen 0.2 (0.2) E.U./dL Ur Leukocyte Esterase Negative (NEGATIVE) Urine RBC 0-1/hpf (0-5/HPF) Urine WBC 0-1/hpf (0-5/HPF) Urine Bacteria None seen (None) Urine Mucus 1+ H (Negative) Ur Culture Indicated? Cult not indicated Chlamy pneumoniae PCR (Not Detect) Adenovirus (PCR) (Not Detect) B.parapertussis DNA PCR (Not Detect) Coronavirus OC43 (PCR) (Not Detect) Coronavirus HKU1 (PCR) (Not Detect) Coronavirus 229E (PCR) (Not Detect) COVID-19 PCR (Negative) Coronavirus NL63 (PCR) (Not Detect) Human Metapneumovir PCR (Not Detect) Influenza Type A (PCR) (Not Detect) Influenza Type B (PCR) (Not Detect) M. pneumoniae (PCR) (Not Detect) Parainfluenza 1 (PCR) (Not Detect) Parainfluenza 2 (PCR) (Not Detect) Parainfluenza 3 (PCR) (Not Detect) Parainfluenza 4 (PCR) (Not Detect) RSV (PCR) (Not Detect) Entero/Rhino (PCR) (Not Detect) Imaging Data Chest x-ray: Radiologist's Impression: [place] [id number] XRay Report Signed Patient: Jimi Montes CMR#: [id number] : 8Acct:[id number] Age/Sex: 80 / MDate of Service: 09/29/20 Loc: ED Accession Number: [id number] Procedure: XR chest 1V Ordering Provider: Jimi Luevano MD PROCEDURE: XR CHEST 1V INDICATIONS: cough TECHNIQUE: One view of the chest was acquired. COMPARISON: [facility], CR, XR CHEST 1V, 12/08/2019, 16:30. [facility], CR, XR CHEST 1V, 12/09/2019, 13:09. FINDINGS: Surgical changes and devices: None. Lungs and pleura: The medial lung apices are partially obscured by the patient's neck soft tissues. No definite pneumothorax. No pleural effusions. Visualized lungs demonstrate no acute consolidation. Mediastinum: Mediastinal contours appear unchanged. Heart size is normal. Bones and chest wall: No suspicious bony lesions. Overlying soft tissues appear unremarkable. IMPRESSION: 1. No definite acute cardiopulmonary disease, with the medial lung apices partially obscured. Dictated by: Theodore Rivas M.D. on 09/29/2020 at 21:33 Approved by: Theodore Rivas M.D. on 09/29/2020 at 21:34 MDM Narrative Medical decision making narrative: Appropriate for admission observation for fever of unknown origin. Patient has been on antibiotics, possibly source may be the gluteal bed sore. Discharge Plan Departure Patient Disposition: Admitted as Observation Clinical Impression: Fever of unknown origin Discharge Date/Time: 09/29/20 23:55 Referrals: Bill Alarcon MD [Primary Care Provider] - Admit Date/Time: 09/29/20 22:58 Admit Provider: Henry Rodríguez
[2020-09-29 20:45] LABS: Add Manual Diff / Slide Review NO; Basophils Absolute Auto 0 /uL (0-100); Basophils Percent Auto 0.4 % (0-2); Eosinophils Absolute Auto 100 /uL (0-450); Eosinophils Percent Auto 1.3 % (2-4); Hematocrit 32.5 % (41-53); Hemoglobin 10.9 g/dL (13.5-17.5); Lymphocytes Absolute Auto 900 /uL (1100-4500); Mean Corpuscular HGB Conc 33.5 % (30-36); Mean Corpuscular Hemoglobin 30.3 PG (26-34); Mean Corpuscular Volume 90.6 fL (80-100); Monocytes Absolute Auto 800 /uL (0-900); Monocytes Percent Auto 9.7 % (3-14); Neutrophils Absolute Auto 6600 /uL (1500-7000); Neutrophils Percent Auto 77.6 % (50-75); Platelet Count 196 X10^3/uL (150-400); Red Blood Cell Count 3.59 X10^6/uL (4.5-5.9); Red Cell Distribution Width 13.3 % (11.6-14.8); White Blood Cell Count 8.5 X10^3/uL (4.5-11.0)
[2020-09-29 20:46] LABS: INR 1.3 (0.9-1.3); Prothrombin Time 14.6 SECONDS (10.1-12.7)
[2020-09-29 20:49] LABS: Alanine Aminotransferase 12 IU/L (<50); Albumin 3.3 g/dL (3.5-5.0); Alkaline Phosphatase 78 U/L (38-126); Aspartate Aminotransferase 32 IU/L (17-59); BUN Creatinine Ratio 28.4 (6-22); Bilirubin Total 0.5 mg/dL (0.2-1.3); Blood Urea Nitrogen 29 mg/dL (9-20); Calcium 8.3 mg/dL (8.4-10.2); Carbon Dioxide 26 mmol/L (22-32); Chloride 106 mmol/L (98-107); Estimated Glomerular Filt Rate > 60.0 mL/min (>60); Globulin 3.2 g/dL (1.7-4.1); Glucose 108 mg/dL (80-110); HEMOLYSIS 18 (0-50); Lactate (Lactic Acid) 0.8 mmol/L (0.7-2.1); PTT Partial Thromboplastin Tim 31 SECONDS (26.4-36.2); Potassium 3.6 mmol/L (3.4-5.1); Sodium 136 mmol/L (137-145); Total Protein 6.5 g/dL (6.3-8.2)
[2020-09-29] MEDS: SODIUM CHLORIDE 0.9% 1,000 ML 200 ML IV (20:52)
[2020-09-29] MEDS: CEFTRIAXONE 2 GM/50 ML FROZ.PIGGY IV (20:53)
[2020-09-29 21:05] LABS: Procalcitonin < 0.05 ng/mL (<0.5)
[2020-09-29 21:07] LABS: Bacteria Urine None Seen
[2020-09-29 21:08] LABS: Appearance Urine UA CLEAR; Bilirubin Urine UA NEGATIVE (NEGATIVE); Color Urine UA YELLOW; Glucose Urine UA NEGATIVE (Negative); Ketones Urine UA TRACE (NEGATIVE); Leukocyte Esterase Urine UA NEGATIVE (NEGATIVE); Nitrite Urine UA NEGATIVE (Negative); Occult Blood Urine UA TRACE-LYSED (Negative); Protein Urine UA TRACE (Negative); Specific Gravity Urine UA 1.025 (1.000-1.035); Urobilinogen Urine UA 0.2 E.U./dL (0.2)
[2020-09-29 21:16] LABS: COVID19 -Nasal RAPID Negative (Negative)
[2020-09-29 21:24] LABS: RBC Urine 0-1/HPF (0-5/HPF); WBC Urine 0-1/HPF (0-5/HPF)
[2020-09-29 21:25] LABS: Culture Indicated Urine Cult Not Indicated; Mucus Urine 1+ (Negative)
[2020-09-29 22:34] LABS: Adenovirus Not Detected (Not Detect); Bordetella pertussis Not Detected (Not Detect); Chlamydophila pneumoniae Not Detected (Not Detect); Coronavirus 229E Not Detected (Not Detect); Coronavirus HKU1 Not Detected (Not Detect); Coronavirus NL 63 Not Detected (Not Detect); Coronavirus OC43 Not Detected (Not Detect); Human Metapneumovirus Not Detected (Not Detect); Human Rhinovirus/Enterovirus Not Detected (Not Detect); Influenza A Not Detected (Not Detect); Influenza B Not Detected (Not Detect); Mycoplasma pneumoniae Not Detected (Not Detect); Parainfluenza Virus 1 Not Detected (Not Detect); Parainfluenza Virus 2 Not Detected (Not Detect); Parainfluenza Virus 3 Not Detected (Not Detect); Parainfluenza Virus 4 Not Detected (Not Detect); Respiratory Syncytial Virus Not Detected (Not Detect)
[2020-09-29] MEDS: SODIUM CHLORIDE 0.9% 1,000 ML 1000 ML IV (22:56)
--- NOTE | 2020-09-29 23:26 | P.HP_ITS ---
History of Present Illness History of Present Illness Date Patient Seen: 09/30/20 Time Patient Seen: 00:10 Chief complaint: Fever Narrative: Mr. Jimi Montes is an 79-year-old male patient who resides at [facility] living and has a history significant for ongoing treatment for sacral decubitus, recurrent UTI with history of ESBL infection, hypertension, moderate to severe dementia with behavioral and cognitive impairment, prostate cancer (S/P prostatectomy and chemotherapy) inguinal node dissection, bowel and bladder incontinence, neuropathy and right lower extremity lymphedema who sent to the ER for fever. The patient has been being receiving treatment for sacral decubitus. A wound culture was obtained on 09/18/2020 resulting in E coli and Proteus mirabilis both sensitive to ciprofloxacin which she has been receiving. The patient has other infectious history with frequent UTI however urinalysis unremarkable, he has no respiratory complaints and chest x-ray shows no infiltrates or opacities. The patient has severe dementia but appears to be below his typical baseline functioning. Patient is a DNR DNI and the patient's has been contacted who is agreeable to antibiotics and hydration. The patient is unable to contribute to a subjective evaluation. Upon arrival to the ER the patient has temperature of a 102.7?, heart rate of 85, blood pressure of 105/55, respirations of 18 saturating 95% on room air. Chest x-ray finds no acute cardiopulmonary disease and heart size appears small. On laboratory analysis he has white count of 8.5 with a slight left shift with mild increase in neutrophils, hemoglobin is 10.9, hematocrit of 32.5 and platelets of 196. He has a PT of 14.6, INR 1.3, PTT of 31. His sodium is 136 and potassium 3.6 with a BUN of 29 and a creatinine of 1.02. His BUN creatinine ratio is 28.4. His nonfasting glucose is 108. His liver functions are all within normal limits and has a total protein of 6.5 an albumin of 3.3. His lactic acid is 0.8 and procalcitonin is less than 0.05. On urinalysis trace proteins and ketones and is negative for nitrates, leukocyte esterase, wbc's or bacteria. In the ER the patient is receiving normal saline. Blood cultures have been drawn and Rocephin 2 g IV given. The patient is admitted to the medicine service for fever of unclear etiology likely sacral decubitus. Patient History Medical History Candidiasis of scrotum (Chronic) Chemotherapy-induced neuropathy (Acute) Dementia with behavioral disturbance (Acute) History of prostate cancer (Chronic) HTN (hypertension) (Chronic) Hypokalemia (Acute) Incontinence (Chronic) Lymphedema of right lower extremity (Acute) MRSA cellulitis of right foot (Acute) Recurrent urinary tract infection (Acute) Stage IV pressure ulcer of heel (Acute) Surgical History History of prostatectomy (Resolved) History of squamous cell carcinoma excision (Resolved) Family & Social History Family History Other Family history non-contributory Family history unavailable: Yes (The patient is unable to provide family or social history.) Social History: household members none,other Safety & Behavioral: Feels Safe in Current Unwilling to Answer Environment Tobacco & Substance use: Smoking Status Never smoker alcohol intake current alcohol intake frequency a few times a week Substance Use Type does not use Meds Home Medications and Allergies Home Medications Medication Instructions Recorded Confirmed Type aspirin 81 mg PO DAILY 12/15/18 09/30/20 History cholecalciferol (vitamin D3) 1,000 unit PO DAILY 12/15/18 09/30/20 History [Vitamin D3] cyanocobalamin (vitamin B-12) 500 mcg PO DAILY 12/15/18 09/30/20 History [Vitamin B-12] tamsulosin [Flomax] 0.4 mg PO DAILY #30 cap 01/26/19 09/30/20 Rx acetaminophen [Tylenol Arthritis 650 mg PO TID 06/20/19 09/30/20 History Pain] furosemide 40 mg PO DAILY #0 tab 10/11/19 09/30/20 Rx ascorbic acid (vitamin C) 500 mg PO DAILY 12/08/19 09/30/20 History clotrimazole 1 applic TOPICAL TID PRN 12/08/19 09/30/20 History bisacodyl 10 mg WI DAILY PRN #10 ea 12/11/19 09/30/20 Rx docusate sodium [DOK] 100 mg PO BID PRN #60 cap 12/11/19 09/30/20 Rx potassium chloride [Klor-Con M20] 40 meq PO DAILYCC #30 tab 12/11/19 09/30/20 Rx ciprofloxacin HCl 750 mg PO Q12H 09/30/20 09/30/20 History nystatin 5 applic TOPICAL TID PRN 09/30/20 09/30/20 History quetiapine [Seroquel] 25 mg PO BID 09/30/20 09/30/20 History Allergies Allergy/AdvReac Type Severity Reaction Status Date / Time hydromorphone [From Dilaudid] Allergy Verified 09/29/20 23:07 Review of Systems Review of Systems ROS: Yes unobtainable due to mental status Exam Vital Signs (past 8 hours): - 09/29/20 20:21 09/29/20 21:26 09/29/20 21:30 Temperature 102.7 F H Pulse Rate 85 80 80 Respiratory Rate 18 Blood Pressure 105/55 L 97/56 L Pulse Oximetry 95 95 95 09/29/20 21:42 09/29/20 22:00 09/29/20 22:30 Temperature Pulse Rate 81 Respiratory Rate Blood Pressure 90/54 L 89/53 L Pulse Oximetry 09/29/20 22:32 09/29/20 22:34 09/29/20 22:43 Temperature 98.6 F Pulse Rate 70 69 Respiratory Rate Blood Pressure 85/51 L 91/52 L Pulse Oximetry 98 98 Oxygen Delivery Method Room Air Narrative Exam Narrative: GENERAL APPEARANCE: well developed, adequately nourished, elderly male in no acute distress. HEENT: Normocephalic, PERRLA, conjunctiva clear, no rhinorrhea, mucous membranes are moist and pink without lesions. NECK/THYROID: Decreased ROM, nontender to palpation, no JVD, no thyromegaly, trachea midline. LYMPH NODES: no cervical or supraclavicular lymphadenopathy. SKIN: [place], warm and dry, 2 cm x 3 cm sacral decubitus stage III, HEART: regular rate and rhythm, S1-S2, no murmur, no rubs or gallops, brisk capi llary refill, no edema LUNGS: clear to auscultation bilaterally, no coarseness crackles or wheezing, no cough present CHEST: Symmetrical movement, no accessory muscle use, good tidal volume. ABDOMEN: Soft, no distention, no abdominal tenderness, no guarding or peritoneal signs, no organomegaly, no flank or suprapubic tenderness, active bowel tones. BACK: Normal curvature, nontender to palpation, no CVA tenderness on percussion EXTREMITIES: Decreased ROM of all extremities, held rigidly, no contractures, no deformities or joint effusions, left foot cool to touch delayed capillary refill 4-5 seconds NEUROLOGIC: Mumbling speech but able to stay he is in [facility], no facial droop, no lateralizing symptoms, neuropathy bilateral lower extremities PSYCH: Flat affect, mumbling speech inconsistently following commands, behaviorally stable Objective Labs Result Diagrams: 09/29/20 20:20 09/29/20 20:20 Labs: Laboratory Results - last 24 hr 09/29/20 09/29/20 09/29/20 20:20 20:20 20:20 WBC 8.5 RBC 3.59 L Hgb 10.9 L Hct 32.5 L MCV 90.6 MCH 30.3 MCHC 33.5 RDW 13.3 Plt Count 196 Neut % (Auto) 77.6 H Lymph % (Auto) 11.0 L [place] % (Auto) 9.7 Eos % (Auto) 1.3 L Baso % (Auto) 0.4 Neut # (Auto) 6600 Lymph # (Auto) 900 L [place]mer # (Auto) 800 Eos # (Auto) 100 Baso # (Auto) 0 PT INR APTT Sodium 136 L Potassium 3.6 Chloride 106 Carbon Dioxide 26 BUN 29 H Creatinine 1.02 Estimated GFR > 60.0 BUN/Creatinine Ratio 28.4 H Glucose 108 Lactate Calcium 8.3 L Total Bilirubin 0.5 AST 32 ALT 12 Alkaline Phosphatase 78 Total Protein 6.5 Albumin 3.3 L Globulin 3.2 Albumin/Globulin Ratio 1.0 Procalcitonin < 0.05 Urine Color Urine Appearance Urine pH Ur Specific [place] Urine Protein Urine Glucose (UA) Urine Ketones Urine Occult Blood Urine Nitrate Urine Bilirubin Urine Urobilinogen Ur Leukocyte Esterase Urine RBC Urine WBC Urine Bacteria Urine Mucus Ur Culture Indicated? Chlamy pneumoniae PCR Adenovirus (PCR) B.parapertussis DNA PCR Coronavirus OC43 (PCR) Coronavirus HKU1 (PCR) Coronavirus 229E (PCR) COVID-19 PCR Coronavirus NL63 (PCR) Human Metapneumovir PCR Influenza Type A (PCR) Influenza Type B (PCR) M. pneumoniae (PCR) Parainfluenza 1 (PCR) Parainfluenza 2 (PCR) Parainfluenza 3 (PCR) Parainfluenza 4 (PCR) RSV (PCR) Entero/Rhino (PCR) 09/29/20 09/29/20 09/29/20 20:20 20:20 20:20 WBC RBC Hgb Hct MCV MCH MCHC RDW Plt Count Neut % (Auto) Lymph % (Auto) [place] % (Auto) Eos % (Auto) Baso % (Auto) Neut # (Auto) Lymph # (Auto) [place] # (Auto) Eos # (Auto) Baso # (Auto) PT 14.6 H INR 1.3 APTT 31 Sodium Potassium Chloride Carbon Dioxide BUN Creatinine Estimated GFR BUN/Creatinine Ratio Glucose Lactate 0.8 Calcium Total Bilirubin AST ALT Alkaline Phosphatase Total Protein Albumin Globulin Albumin/Globulin Ratio Procalcitonin Urine Color Urine Appearance Urine pH Ur Specific [place] Urine Protein Urine Glucose (UA) Urine Ketones Urine Occult Blood Urine Nitrate Urine Bilirubin Urine Urobilinogen Ur Leukocyte Esterase Urine RBC Urine WBC Urine Bacteria Urine Mucus Ur Culture Indicated? Chlamy pneumoniae PCR Adenovirus (PCR) B.parapertussis DNA PCR Coronavirus OC43 (PCR) Coronavirus HKU1 (PCR) Coronavirus 229E (PCR) COVID-19 PCR Negative Coronavirus NL63 (PCR) Human Metapneumovir PCR Influenza Type A (PCR) Influenza Type B (PCR) M. pneumoniae (PCR) Parainfluenza 1 (PCR) Parainfluenza 2 (PCR) Parainfluenza 3 (PCR) Parainfluenza 4 (PCR) RSV (PCR) Entero/Rhino (PCR) 09/29/20 09/29/20 20:40 20:50 WBC RBC Hgb Hct MCV MCH MCHC RDW Plt Count Neut % (Auto) Lymph % (Auto) [place] % (Auto) Eos % (Auto) Baso % (Auto) Neut # (Auto) Lymph # (Auto) [place] # (Auto) Eos # (Auto) Baso # (Auto) PT INR APTT Sodium Potassium Chloride Carbon Dioxide BUN Creatinine Estimated GFR BUN/Creatinine Ratio Glucose Lactate Calcium Total Bilirubin AST ALT Alkaline Phosphatase Total Protein Albumin Globulin Albumin/Globulin Ratio Procalcitonin Urine Color Yellow Urine Appearance Clear Urine pH 5.0 Ur Specific [place] 1.025 Urine Protein Trace H Urine Glucose (UA) Negative Urine Ketones Trace H Urine Occult Blood Trace-lysed Urine Nitrate Negative Urine Bilirubin Negative Urine Urobilinogen 0.2 Ur Leukocyte Esterase Negative Urine RBC 0-1/hpf Urine WBC 0-1/hpf Urine Bacteria None seen Urine Mucus 1+ H Ur Culture Indicated? Cult not indicated Chlamy pneumoniae PCR Not detected Adenovirus (PCR) Not detected B.parapertussis DNA PCR Not detected Coronavirus OC43 (PCR) Not detected Coronavirus HKU1 (PCR) Not detected Coronavirus 229E (PCR) Not detected COVID-19 PCR Coronavirus NL63 (PCR) Not detected Human Metapneumovir PCR Not detected Influenza Type A (PCR) Not detected Influenza Type B (PCR) Not detected M. pneumoniae (PCR) Not detected Parainfluenza 1 (PCR) Not detected Parainfluenza 2 (PCR) Not detected Parainfluenza 3 (PCR) Not detected Parainfluenza 4 (PCR) Not detected RSV (PCR) Not detected Entero/Rhino (PCR) Not detected Assessment & Plan Assessment & Plan narrative: This is 79-year-old male who was a resident of [facility] with a past medical history significant for dementia with behavioral disturbance, hypertension, prostate CA, chronic right lower extremity lymphedema, bowel and bladder incontinence, sacral pressure ulcer, who presented to ED for altered mental status and fever of unclear etiology. 1. Fever of unknown origin, acute, present on admission, active -patient developed a fever today and received Tylenol at his care facility. Fever upon arrival to the ER is 102.7. -patient has reportedly had no nausea vomiting, no diarrhea or respiratory symptoms. -patient has been treated for a positive wound culture 2. Acute dehydration, present on admission, active. -patient reportedly with poor p.o. intake, receiving furosemide 40 mg daily -Patient appeared clinically dry on arrival to ER, low normal blood pressure 105/55 decreasing down to 85/51 improved with IV fluids, BUN creatinine ratio of is 28.4. -will hold furosemide with concern for over-diuresis. -ordered lactated Ringer's at 125 cc/hour. 3. Sacral decubitus pressure ulceration, chronic, present on admission, stable -stage III sacral decubitus ulcer over the right ischial process, approximately 3 cm x 2 cm without surrounding erythema or swelling and no drainage. -wound culture obtained on 09/18/2020 positive for E coli and Proteus mirabilis both of which are sensitive to Cipro which he has been receiving. -white count is 8.5 with a slight left shift, lactic acid is 0.8 and procalci tonin is negative at 0.05. Ordered CRP. -patient received Rocephin in the emergency department to which E coli is resistant. Both organisms are sensitive to amoxicillin sulbactam ordered 3 g IV every 6 hours. -requested PT and OT to consult, evaluate and treat. 4. Severe dementia without behavioral disturbance, chronic, present on admission. Stable. -Patient appears to be at baseline level of function with impaired cognition, mumbling speech -will continue home regimen of Seroquel 12.5 mg twice daily. 5. Lymphedema, chronic, present on admission. Stable. -right foot with moderate swelling without pitting edema slight redness to the forefoot, protective boot in place, previous heel ulcer appears well-healed -will monitor lymphedema as Lasix is being held due to over dehydration. 6. BPH, present on admission stable. -Patient with history of prostate cancer status post prostatectomy and chemotherapy. -Continued patient's home regimen of tamsulosin 0.4 mg daily. 7. Normocytic anemia, chronic, present on admission. Stable. -hemoglobin is 10.9 on admission with previous hemoglobin of 10.5 on 09/20/2020. -No overt signs of bleeding, likely anemia of chronic disease. -Continued to monitor for signs of bleeding and CBC periodically. 8. Peripheral neuropathy, chronic, present on admission. Stable. -Patient with neuropathy following chemotherapy for prostate cancer. -No further treatment indicated at this time. 9. History of ESBL urinary tract infection. -UA is negative for infection this admission and patient is without symptoms. VTE prophylaxis: Bilateral SCDs, enoxaparin IV fluid: Lactated Ringer's 125 cc/hour. Diet: Dysphagia advanced regular diet. Code status: DNR DNI, the patient's is his surrogate decision maker and she is been contacted regarding this admission and agrees to IV fluids and antibiotics. The patient is admitted to the hospital for further evaluation of fever and treatment of dehydration. COVID-19 COVID-19 status: Negative Result date/Date tested (Pos, Neg/Pending): 09/29/20 Scores GCS [place] coma scale eye opening: Spontaneous [place] coma scale verbal response: Confused [place] coma scale motor response: Obey commands (Inconsistently follows commands, requires repeated cuing) [place] coma scale total score: 14
[2020-09-29 23:34] LABS: Magnesium 1.8 mg/dL (1.6-2.3)
[2020-09-29] MEDS: LACTATED RINGERS 1,000 ML 125 ML IV (23:57)
[2020-09-30 00:04] VITALS: BP 110/64; PULSE 77; RESP 18; TEMP 36.4; O2SAT 98
[2020-09-30 00:08] LABS: C-Reactive Protein Quant 3.4 mg/dL (<1.0)
[2020-09-30 00:09] VITALS: BMI 22.4
--- NOTE | 2020-09-30 01:35 | PC.ADMIT ---
Addendum entered by Itzel Montenegro R.N. 09/30/20 06:34: Complains of headache this morning; FLACC 3. Medicated with Tylenol. Has not voided this shift so bladder scan done showing 440cc in bladder. In/out cath done for 575cc clear yellow urine Original Note: Patient admitted to room 216 per stretcher from ER. Is able to state his name and that he is in the hospital but otherwise is disoriented. Speech is mumbled, soft spoken with delayed responses. Breath sounds CTA with RA sat of 98%. HRR. Denies nausea. BT present and abdomen is soft/flat. Staff at [facility] report patient is sometimes continent of urine and sometimes incontinent. Needing assistance to reposition in bed. Has chronic pressure ulcer on right buttock; Allevyn dressing changed. Has healed pressure ulcer on right lateral heel which is now calloused; foot is in padded boot. States he is in pain from buttock but unable to quantify severity and has FLACC of 1. Bilateral calf SCD's applied. Staff at [facility] contacted and reports patient sometimes walks with walker and 1 assist. He is unsteady and has had multiple falls over past 3 months with last one on 09/28. State he eats well and able to feed himself after setup. Report he can at times be combative and aggressive. Fall risk score is high and bed alarm is activated. Unable to comprehend use of call light and/or bed controls. [address] [facility] 108 Admission Note: The patient,Jimi Montes,80 y/o, was given written information regarding hospital policies, unit procedures and contact persons. Patient's smoking status: Never smoker. Vital Signs - 8 hr 09/29/20 20:21 09/29/20 21:26 09/29/20 21:30 Temperature 102.7 F H Pulse Rate 85 80 80 Respiratory Rate 18 Blood Pressure 105/55 L 97/56 L Pulse Oximetry 95 95 95 09/29/20 21:42 09/29/20 22:00 09/29/20 22:30 Temperature Pulse Rate 81 Respiratory Rate Blood Pressure 90/54 L 89/53 L Pulse Oximetry 09/29/20 22:32 09/29/20 22:34 09/29/20 22:43 Temperature 98.6 F Pulse Rate 70 69 Respiratory Rate Blood Pressure 85/51 L 91/52 L Pulse Oximetry 98 98 09/29/20 23:00 09/29/20 23:30 09/30/20 00:04 Temperature 97.5 F L Pulse Rate 70 69 77 Respiratory Rate 18 Blood Pressure 87/52 L 97/56 L 110/64 Pulse Oximetry 99 98 98
[2020-09-30 05:44] LABS: Add Manual Diff / Slide Review NO; Basophils Absolute Auto 0 /uL (0-100); Basophils Percent Auto 0.3 % (0-2); Eosinophils Absolute Auto 100 /uL (0-450); Eosinophils Percent Auto 1.9 % (2-4); Hematocrit 30.9 % (41-53); Hemoglobin 10.2 g/dL (13.5-17.5); Lymphocytes Absolute Auto 1500 /uL (1100-4500); Lymphocytes Percent Auto 19.3 % (25-40); Mean Corpuscular HGB Conc 33.2 % (30-36); Mean Corpuscular Hemoglobin 30.3 PG (26-34); Mean Corpuscular Volume 91.2 fL (80-100); Monocytes Absolute Auto 1000 /uL (0-900); Monocytes Percent Auto 13.3 % (3-14); Neutrophils Absolute Auto 5000 /uL (1500-7000); Neutrophils Percent Auto 65.2 % (50-75); Platelet Count 166 X10^3/uL (150-400); Red Blood Cell Count 3.39 X10^6/uL (4.5-5.9); White Blood Cell Count 7.6 X10^3/uL (4.5-11.0)
[2020-09-30 05:50] LABS: BUN Creatinine Ratio 22.4 (6-22); Blood Urea Nitrogen 22 mg/dL (9-20); Carbon Dioxide 28 mmol/L (22-32); Chloride 107 mmol/L (98-107); Estimated Glomerular Filt Rate > 60.0 mL/min (>60); Glucose 93 mg/dL (80-110); HEMOLYSIS < 15 (0-50); Potassium 3.3 mmol/L (3.4-5.1); Sodium 136 mmol/L (137-145)
[2020-09-30 06:00] VITALS: BP 116/70; PULSE 70; RESP 16; TEMP 36.3; O2SAT 98
[2020-09-30] MEDS: AMPICILLIN/SULBACTAM 3 GM 3 GM in SODIUM CHLORIDE 0.9% 100 ML IV ×2 (06:03)
[2020-09-30] MEDS: ACETAMINOPHEN 325 MG TABLET 650 MG PO (06:05)
[2020-09-30 08:00] VITALS: BP 105/62; PULSE 57; RESP 16; TEMP 36.3; O2SAT 97
[2020-09-30] MEDS: MEROPENEM 500 MG in SODIUM CHLORIDE 0.9% 100 ML 200 ML IV ×2 (08:06→15:53)
[2020-09-30] MEDS: LACTATED RINGERS 1,000 ML 125 ML IV ×2 (09:49→20:21)
[2020-09-30] MEDS: POTASSIUM CHLORIDE 20 MEQ in SODIUM CHLORIDE 0.9% 250 ML 130 ML IV (09:50)
[2020-09-30] MEDS: TAMSULOSIN 0.4 MG CAPSULE PO (09:50)
[2020-09-30] MEDS: ENOXAPARIN 40 MG/0.4 ML SYRINGE SUBCUT (09:50)
[2020-09-30] MEDS: ASPIRIN EC 81 MG TABLET PO (09:51)
[2020-09-30] MEDS: DOCUSATE 100 MG CAPSULE PO ×2 (09:51→20:21)
[2020-09-30] MEDS: QUETIAPINE 25 MG TABLET PO ×2 (09:51→20:21)
--- NOTE | 2020-09-30 10:36 | OT.IPNOTE ---
Spoke to staff at [facility] to find out status for pt , staff states at times when he wants in able to do grooming and feeds himself. Otherwise pt needing extensive assist for all toileting, dressing, and bathing needs.Therefore pt at baseline for ADl needs, discharge OT eval orders.
[2020-09-30 12:00] VITALS: BP 99/65; PULSE 56; RESP 16; TEMP 36.4; O2SAT 97
--- NOTE | 2020-09-30 12:21 | CM.DANOTE ---
Patient is an 80 year old male who was admitted on 09/29/20 for Fever. Pt has MCR for insurance and his PCP is Dr. Alarcon. EMR was reviewed. Per MD, pt with chronic sacral decubitus and UTI with prostrate cancer and dementia. Pt is DNR/DNI and currently getting IV Rocephin for infection likely from ulcer. Awaiting further cultures/sensitivities to determine length of IV-Abx. Pt with significant dementia and spouse has a house on Wednesday but mostly resides at [facility] senior care and has for the past couple years. Spouse is DPOA and Very [place] and difficult to talk to via phone and currently not bedside. [facility] and confirmed pt is a resident at their facility and is mostly w/c bound and typically able to do his own feeding, oral hygiene and face washing and is calm and cooperative with care at their facility but in new environments can get a little more agitated. Has Seroquel 12.5 mg at baseline. SW updated on possible need for IV-Abx at d/c and of course they can not accept back if on IV-Abx needed and pt last was at [facility] when he needed senior care IV-Abx. [facility] not requesting clinicals at this time but would like to be kept updated once decision made if IV-Abx needed at d/c and they will need to do bedside assessment prior to pt return. SW called [facility] admissions April and updated on pt status and possible need for IV-Abx again at d/c and determine if any barriers to them accepting pt if needed. April states she will review and will check their notes from their last admission as pt had to remain for a couple months in SNF as his wound needed a long time to heal and pt may have been somewhat challenging for them. Plan: SW to follow closely for cultures to return to determine if IV-Abx needed at d/c and close coordination with [facility] (if not IV-Abx needed they will need to do bedside assessment prior to return) and [facility] review to see if they will accept if IV-Abx needed prior to return to [facility]. JERICHO Atkins Discharge Planning/Care Management CM Discharge Assessment Start: 09/30/20 11:46 Freq: Status: Active Protocol: Document 09/30/20 11:46 BF (Rec: 09/30/20 12:21 [id number]) Discharge Planning Assessment Assigned Batch Dumper JERICHO Mancera DPOA/Assigned Designee Name spouse Berna Montes Contact Information # at [facility] Advance Directives? Yes Advance Directives on File Yes History Provided By Significant Other,Medical Record Has Patient been admitted in last 30 No days? Prior Living Arrangements Assisted Living Household Members none,other Type of transporation used prior to Relies on Others admit Comment Spouse mostly lives at [facility] but also has home on [address], spouse very [place] Facility Name Admitted From: [facility] Willing to Return to Facility? Yes Independent with ADL's No Is patient alert and oriented? No Needs Assistance With Bathing,Meal Prep,Managing Medications,Home Chores / Shopping Caregiver for Another No DME Already Rented / Owned Bath Bench,Wheelchair Comment Uses a sit to stand, or hoier if unable to use upper body Patient/Family Preference Shelter Facility Comment SNF vs return to [facility] pending IV-Abx needs Barriers to Discharge No Comment Only barrier will be if he needs IV antibiotics. [facility] does not do IVs, and patient can't go with a PICC line. Discharge Plan Assisted Living Facility Transportation Arrangement Facility van whether SNF or [facility] Referrals Initiated Shelter Additional Comment SNF vs return to [facility] pending IV-Abx Review Status In Process Please Provide Date Initial DC 09/30/20 Assessment Was Performed Next Review Type Continued Stay Review
--- NOTE | 2020-09-30 14:38 | PT-IP ANOTE ---
Received PT orders and reviewed chart. Pt was last admitted to [facility] in November 2019. Chart notes indicate pt was dependent for all mobility including antoine transfers. PT called [facility] who confirm pt is non ambulatory and is dependent for transfers. No PT intervention is indicated. Discussed case with Dr. Thurston who is in agreement to discharge PT orders.
[2020-09-30 15:35] VITALS: BP 120/42; PULSE 68; RESP 14; TEMP 36.1; O2SAT 97
[2020-09-30 20:00] VITALS: BP 113/65; PULSE 78; RESP 15; TEMP 36.3; O2SAT 99
[2020-10-01] MEDS: MEROPENEM 500 MG in SODIUM CHLORIDE 0.9% 100 ML 200 ML IV ×3 (00:09→15:54)
[2020-10-01 00:15] VITALS: BP 113/64; PULSE 73; RESP 16; TEMP 37.1; O2SAT 98
[2020-10-01] MEDS: LACTATED RINGERS 1,000 ML 125 ML IV ×2 (04:19→12:20)
[2020-10-01 04:55] VITALS: BP 112/66; PULSE 75; RESP 18; TEMP 37.2; O2SAT 96
[2020-10-01 05:51] LABS: Add Manual Diff / Slide Review NO; Basophils Absolute Auto 0 /uL (0-100); Basophils Percent Auto 0.4 % (0-2); Eosinophils Absolute Auto 200 /uL (0-450); Eosinophils Percent Auto 2.6 % (2-4); Hematocrit 31.3 % (41-53); Hemoglobin 10.3 g/dL (13.5-17.5); Lymphocytes Absolute Auto 1200 /uL (1100-4500); Lymphocytes Percent Auto 18.5 % (25-40); Mean Corpuscular Hemoglobin 29.8 PG (26-34); Mean Corpuscular Volume 90.4 fL (80-100); Monocytes Absolute Auto 800 /uL (0-900); Monocytes Percent Auto 11.6 % (3-14); Neutrophils Absolute Auto 4500 /uL (1500-7000); Neutrophils Percent Auto 66.9 % (50-75); Platelet Count 159 X10^3/uL (150-400); Red Blood Cell Count 3.46 X10^6/uL (4.5-5.9); Red Cell Distribution Width 13.2 % (11.6-14.8); White Blood Cell Count 6.6 X10^3/uL (4.5-11.0)
[2020-10-01 06:11] LABS: Alanine Aminotransferase 12 IU/L (<50); Alkaline Phosphatase 70 U/L (38-126); Aspartate Aminotransferase 26 IU/L (17-59); BUN Creatinine Ratio 20.8 (6-22); Bilirubin Total 0.6 mg/dL (0.2-1.3); Blood Urea Nitrogen 16 mg/dL (9-20); Calcium 8.2 mg/dL (8.4-10.2); Carbon Dioxide 30 mmol/L (22-32); Chloride 106 mmol/L (98-107); Estimated Glomerular Filt Rate > 60.0 mL/min (>60); Globulin 3.1 g/dL (1.7-4.1); Glucose 94 mg/dL (80-110); HEMOLYSIS < 15 (0-50); Magnesium 1.8 mg/dL (1.6-2.3); Potassium 3.2 mmol/L (3.4-5.1); Sodium 138 mmol/L (137-145); Total Protein 6.1 g/dL (6.3-8.2)
[2020-10-01 09:10] VITALS: BP 118/64; PULSE 66; RESP 16; TEMP 36.9; O2SAT 97
--- NOTE | 2020-10-01 09:32 | DIET.PN ---
Dietary Progress Note Assessment: 80y M who resides at [facility] living and has a history significant for ongoing treatment for sacral decubitus, recurrent UTI with history of ESBL infection, hypertension, moderate to severe dementia with behavioral and cognitive impairment, prostate cancer (S/P prostatectomy and chemotherapy) inguinal node dissection, bowel and bladder incontinence, neuropathy and right lower extremity lymphedema who sent to the ER for fever referred to nutrition for poor POs and BMI 21.7. HT: 190.5cm WT: 81.5kg BMI: 22.5 Labs: K+ 3.3 L BUN 22 H on admit Nutrition Diagnosis: inadequate oral intake (nourishments and hydration) r/t advanced dementia c behavioral and cognitive impairment aeb pt has chronic sacral decubitus, dehydrated on admit, recurrent UTI c e.coli in pressure sores. Interventions: 1. Recc pt drinks Ensure enlive bid to support hydration and protein needs while in hospital and upon d/c back to [facility] provides 40% kcals and 60% pro. Diet Order: Dysphagia advanced EER: 73g PRO (0.9g/kg per elder), 2,000kcal (25kcal/kg) Monitoring/Evaluations: ONS tolerance
[2020-10-01] MEDS: ENOXAPARIN 40 MG/0.4 ML SYRINGE SUBCUT (09:50)
[2020-10-01] MEDS: DOCUSATE 100 MG CAPSULE PO (09:55)
[2020-10-01] MEDS: ASPIRIN EC 81 MG TABLET PO (09:55)
[2020-10-01] MEDS: TAMSULOSIN 0.4 MG CAPSULE PO (09:55)
[2020-10-01] MEDS: QUETIAPINE 25 MG TABLET PO ×2 (09:55→20:03)
[2020-10-01] MEDS: ACETAMINOPHEN 325 MG TABLET 650 MG PO ×2 (10:05→19:05)
[2020-10-01 13:00] VITALS: BP 99/65; PULSE 73; RESP 16; TEMP 36.4; O2SAT 98
--- NOTE | 2020-10-01 13:17 | CM.DPC ---
DCP: continued: Case received and met briefly with pt during Team Bedside Rounds. Dr. Thurston confirmed that pt would need 5 days total of every 8 hours and could only be in the carbapenem family. Conferred with Danuta/Ziyad who had looked into this yesterday afternoon. She confirmed that cost of this drug class had risen greatly and were not affordable at the snf level. confirmed he would keep pt in the hospital through duration of this and then he would d/c either back to [facility] or to [facility] (if other medical needs warranted this.) DCP team will continue to follow.
[2020-10-01] MEDS: POTASSIUM CHLORIDE 20 MEQ TAB 40 MEQ PO (13:35)
--- NOTE | 2020-10-01 15:15 | PM.PN.1 ---
Subjective Subjective Date Patient Seen: 10/01/20 Time Patient Seen: 15:15 Interval history: Mr. Jimi Montes is an 79-year-old male patient who resides at [facility] living and has a history significant for ongoing treatment for sacral decubitus, recurrent UTI with history of ESBL infection, hypertension, moderate to severe dementia with behavioral and cognitive impairment, prostate cancer (S/P prostatectomy and chemotherapy) inguinal node dissection, bowel and bladder incontinence, neuropathy and right lower extremity lymphedema who sent to the ER for fever. The patient has been being receiving treatment for sacral decubitus. A wound culture was obtained on 09/18/2020 resulting in E coli and Proteus mirabilis both sensitive to ciprofloxacin which she has been receiving, however his E coli was an ESBL organism which can have in vitro activity again ciprofloxacin but this was likely ineffective. He will require carbapenem therapy however this is apparently unavailable at his residential facility. Exam Vital Signs (past 8 hours): - 10/01/20 09:10 10/01/20 13:00 Temperature 98.4 F 97.5 F L Pulse Rate 66 73 Respiratory Rate 16 16 Blood Pressure 118/64 99/65 Pulse Oximetry 97 98 Oxygen Delivery Method Room Air Oxygen Flow Rate 0 Narrative Exam Narrative: GENERAL APPEARANCE: well developed, adequately nourished, elderly male in no acute distress. HEENT: Normocephalic, PERRLA, conjunctiva clear, no rhinorrhea, mucous membranes are moist and pink without lesions. NECK/THYROID: Decreased ROM, nontender to palpation, no JVD, no thyromegaly, trachea midline. LYMPH NODES: no cervical or supraclavicular lymphadenopathy. SKIN: [place], warm and dry, 2 cm x 3 cm sacral decubitus stage III, HEART: regular rate and rhythm, S1-S2, no murmur, no rubs or gallops, brisk capillary refill, no edema LUNGS: clear to auscultation bilaterally, no coarseness crackles or wheezing, no cough present CHEST: Symmetrical movement, no accessory muscle use, good tidal volume. ABDOMEN: Soft, no distention, no abdominal tenderness, no guarding or peritoneal signs, no organomegaly, no flank or suprapubic tenderness, active bowel tones. BACK: Normal curvature, nontender to palpation, no CVA tenderness on percussion EXTREMITIES: Decreased ROM of all extremities, held rigidly, no contractures, no deformities or joint effusions, left foot cool to touch delayed capillary refill 4-5 seconds NEUROLOGIC: Mumbling speech but able to stay he is in [facility], no facial droop, no lateralizing symptoms, neuropathy bilateral lower extremities PSYCH: Flat affect, mumbling speech inconsistently following commands, behaviorally stable Objective Labs Result Diagrams: 10/01/20 05:20 10/01/20 05:20 Labs: Laboratory Results - last 24 hr 10/01/20 10/01/20 05:20 05:20 WBC 6.6 RBC 3.46 L Hgb 10.3 L Hct 31.3 L MCV 90.4 MCH 29.8 MCHC 33.0 RDW 13.2 Plt Count 159 Neut % (Auto) 66.9 Lymph % (Auto) 18.5 L Darke % (Auto) 11.6 Eos % (Auto) 2.6 Baso % (Auto) 0.4 Neut # (Auto) 4500 Lymph # (Auto) 1200 Darke # (Auto) 800 Eos # (Auto) 200 Baso # (Auto) 0 Sodium 138 Potassium 3.2 L Chloride 106 Carbon Dioxide 30 BUN 16 Creatinine 0.77 Estimated GFR > 60.0 BUN/Creatinine Ratio 20.8 Glucose 94 Calcium 8.2 L Magnesium 1.8 Total Bilirubin 0.6 AST 26 ALT 12 Alkaline Phosphatase 70 Total Protein 6.1 L Albumin 3.0 L Globulin 3.1 Albumin/Globulin Ratio 1.0 Assessment & Plan Assessment & Plan narrative: This is 79-year-old male who was a resident of [facility] with a past medical history significant for dementia with behavioral disturbance, hypertension, prostate CA, chronic right lower extremity lymphedema, bowel and bladder incontinence, sacral pressure ulcer, who presented to ED for altered mental status and fever likely secondary to ineffective coverage of his sacral wound which grew and ESBL organism. 1. Acute dehydration, present on admission, resolved. -patient reportedly with poor p.o. intake, receiving furosemide 40 mg daily -Patient appeared clinically dry on arrival to ER, low normal blood pressure 105/55 decreasing down to 85/51 improved with IV fluids, BUN creatinine ratio of is 28.4. -patient was continued on IV fluids until adequately rehydrated. He is tolerating a diet. Will continue to hold his home diuretics for now and will likely resume on discharge, or prior to discharge if he develops signs of overload. 2. Sacral decubitus pressure ulceration with ESBL organism, chronic, present on admission, active -stage III sacral decubitus ulcer over the right ischial process, approximately 3 cm x 2 cm without surrounding erythema or swelling and no drainage. -wound culture obtained on 09/18/2020 positive for E coli and Proteus mirabilis. His E coli organism was noted to be ESBL positive. This will require treatment with meropenem and is likely the source of his fevers. Will continue treatment for a total of 5 days which will likely be sufficient. -wound care per nursing protocol. 3. Severe dementia without behavioral disturbance, chronic, present on admission. Stable. -Patient appears to be at baseline level of function with impaired cognition, mumbling speech -will continue home regimen of Seroquel 12.5 mg twice daily. 4. Lymphedema, chronic, present on admission. Stable. -right foot with moderate swelling without pitting edema slight redness to the forefoot, protective boot in place, previous heel ulcer appears well-healed -will monitor lymphedema as Lasix is being held due to dehydration on admission as noted above. 6. BPH, present on admission stable. -Patient with history of prostate cancer status post prostatectomy and chemotherapy. -Continued patient's home regimen of tamsulosin 0.4 mg daily. 7. Normocytic anemia, chronic, present on admission. Stable. -hemoglobin is 10.9 on admission with previous hemoglobin of 10.5 on 09/20/2020. -No overt signs of bleeding, likely anemia of chronic disease. -Continued to monitor for signs of bleeding and CBC periodically. 8. Peripheral neuropathy, chronic, present on admission. Stable. -Patient with neuropathy following chemotherapy for prostate cancer. -No further treatment indicated at this time. 9. History of ESBL urinary tract infection. -UA is negative for infection this admission and patient is without symptoms. VTE prophylaxis: Bilateral SCDs, enoxaparin Diet: Dysphagia advanced regular diet. Code status: DNR DNI, the patient's is his surrogate decision maker and she is been contacted regarding this admission and agrees to IV fluids and antibiotics.
--- NOTE | 2020-10-01 15:42 | PC.NURSE ---
Addendum entered by Piper Shelby R.N. 10/01/20 19:54: Pt resting at intervals through evening. Med w/tylenol @ 1910 for discomfort w/good relief. Call light w/in reach, bed alarm on for pt safety. Continue w/plan of care. Original Note: Pt resting quietly @ this time. Lungs clear, SpO2 94% RA Dsg to coccyx CDI IVF LR @ 125cc/hr infusing into the RFA via pump w/o incidence. Call light w/in reach, bed alarm on for pt safety.
[2020-10-01 16:00] VITALS: BP 108/64; PULSE 64; RESP 16; TEMP 36.2; O2SAT 99
[2020-10-01 19:40] VITALS: BP 100/57; PULSE 72; RESP 15; TEMP 36.4; O2SAT 98
[2020-10-01] MEDS: SODIUM CHLORIDE 0.9% FLUSH 10 ML IV (19:56)
[2020-10-02] MEDS: MEROPENEM 500 MG in SODIUM CHLORIDE 0.9% 100 ML 200 ML IV ×4 (00:01→23:36)
[2020-10-02 02:55] VITALS: BP 124/78; PULSE 72; RESP 16; TEMP 36.7; O2SAT 98
[2020-10-02 06:00] VITALS: BP 116/71; PULSE 66; RESP 15; TEMP 36.4; O2SAT 94
[2020-10-02 06:00] LABS: Add Manual Diff / Slide Review NO; Basophils Absolute Auto 0 /uL (0-100); Basophils Percent Auto 0.5 % (0-2); Eosinophils Absolute Auto 200 /uL (0-450); Eosinophils Percent Auto 3.5 % (2-4); Hematocrit 31.8 % (41-53); Hemoglobin 10.6 g/dL (13.5-17.5); Lymphocytes Absolute Auto 900 /uL (1100-4500); Lymphocytes Percent Auto 16.1 % (25-40); Mean Corpuscular HGB Conc 33.2 % (30-36); Mean Corpuscular Volume 90.5 fL (80-100); Monocytes Absolute Auto 600 /uL (0-900); Monocytes Percent Auto 10.9 % (3-14); Neutrophils Absolute Auto 3800 /uL (1500-7000); Platelet Count 123 X10^3/uL (150-400); Red Blood Cell Count 3.51 X10^6/uL (4.5-5.9); Red Cell Distribution Width 13.1 % (11.6-14.8); White Blood Cell Count 5.5 X10^3/uL (4.5-11.0)
[2020-10-02 06:14] LABS: Alanine Aminotransferase 11 IU/L (<50); Alkaline Phosphatase 74 U/L (38-126); Aspartate Aminotransferase 26 IU/L (17-59); BUN Creatinine Ratio 19.5 (6-22); Bilirubin Total 0.6 mg/dL (0.2-1.3); Blood Urea Nitrogen 15 mg/dL (9-20); Calcium 8.2 mg/dL (8.4-10.2); Carbon Dioxide 28 mmol/L (22-32); Chloride 108 mmol/L (98-107); Estimated Glomerular Filt Rate > 60.0 mL/min (>60); Glucose 87 mg/dL (80-110); HEMOLYSIS < 15 (0-50); Magnesium 1.8 mg/dL (1.6-2.3); Potassium 3.2 mmol/L (3.4-5.1); Sodium 140 mmol/L (137-145)
[2020-10-02 07:35] VITALS: BP 124/72; PULSE 65; RESP 16; TEMP 36.1; O2SAT 97
[2020-10-02] MEDS: TAMSULOSIN 0.4 MG CAPSULE PO (09:01)
[2020-10-02] MEDS: ASPIRIN EC 81 MG TABLET PO (09:01)
[2020-10-02] MEDS: QUETIAPINE 25 MG TABLET PO ×2 (09:01→21:03)
[2020-10-02] MEDS: DOCUSATE 100 MG CAPSULE PO ×2 (09:01→21:02)
[2020-10-02] MEDS: SODIUM CHLORIDE 0.9% FLUSH 10 ML IV ×3 (09:01→21:03)
[2020-10-02] MEDS: ENOXAPARIN 40 MG/0.4 ML SYRINGE SUBCUT (09:02)
[2020-10-02] MEDS: POTASSIUM CHLORIDE 40 MEQ in SODIUM CHLORIDE 0.9% 500 ML 130 ML IV (10:14)
--- NOTE | 2020-10-02 11:03 | CM.DPC ---
Addendum entered by Clarissa Romano R.N. 10/02/20 14:34: Betzaida at [facility] stated that they do not think that they can accept patient secondary to dementia. Let her know that patient is non-ambulatory, per his baseline, and he has not attempted to get up or exhibit any agitated behaviors. Went ahead and called Lupe at [facility]. Updated her as well, and faxed over nursing notes and P.T. notes, showing that patient has not exhibited any behaviors at this time, and that he is non-ambulatory. She will have her DNS review for acceptance. Addendum entered by Clarissa Romano R.N. 10/02/20 12:17: Danuta at [facility] stated that the cost of Mirapenum has increased, which is why they can't accept patient. Will follow up with [facility] and [facility], since they have received referral. Patient is eligable for halfway tomorrow. Original Note: DCP Cont: Discussed case during team rounds. Decided to check with other halfway facilities to see if they can accept him on current antibiotic, or one in the Carbapenem class. Betzaida at [facility] will look into cost. Lupe at [facility] stated that they should be able to accomidate, but will review. Sent referrals to [facility] and [facility]. P: DCP to continue to follow. Patient is eligable for halfway by tomorrow. Referrals sent to [facility] and [facility], will also follow up with [facility]. Ordered P.T./O.T. per Dr. Thurston. Clarissa Romano RN/Salesperson [employer]
[2020-10-02 11:30] VITALS: BP 109/66; PULSE 68; RESP 16; TEMP 36.1; O2SAT 99
--- NOTE | 2020-10-02 13:43 | P.PN_ITS ---
Subjective Subjective Date Patient Seen: 10/02/20 Time Patient Seen: 11:00 Interval history: Mr. Jimi Montes is an 79-year-old male patient who resides at [facility] and has a history significant for ongoing treatment for sacral decubitus, recurrent UTI with history of ESBL infection, hypertension, moderate to severe dementia with behavioral and cognitive impairment, prostate cancer (S/P prostatectomy and chemotherapy) inguinal node dissection, bowel and bladder incontinence, neuropathy and right lower extremity lymphedema who sent to the ER for fever. The patient has been being receiving treatment for sacral decubitus. A wound culture was obtained on 09/18/2020 resulting in E coli and Proteus mirabilis both sensitive to ciprofloxacin which she has been receiving, however his E coli was an ESBL organism which can have in vitro activity again ciprofloxacin but this was likely ineffective. He will require carbapenem therapy however [facility]. Looking into alternative locations at this time. He states he feels bad today but cannot state a particular reason why. Exam Vital Signs (past 8 hours): - 10/02/20 06:00 10/02/20 07:35 10/02/20 11:30 Temperature 97.6 F 96.9 F L 97.0 F L Pulse Rate 66 65 68 Respiratory Rate 15 16 16 Blood Pressure 116/71 124/72 109/66 Pulse Oximetry 94 97 99 Oxygen Delivery Method Room Air Oxygen Flow Rate 0 Narrative Exam Narrative: GENERAL APPEARANCE: well developed, adequately nourished, elderly male in no acute distress. HEENT: Normocephalic, PERRLA, conjunctiva clear, no rhinorrhea, mucous membranes are moist and pink without lesions. NECK/THYROID: Decreased ROM, nontender to palpation, no JVD, no thyromegaly, trachea midline. LYMPH NODES: no cervical or supraclavicular lymphadenopathy. SKIN: [place], warm and dry, 2 cm x 3 cm sacral decubitus stage III, HEART: regular rate and rhythm, S1-S2, no murmur, no rubs or gallops, brisk capillary refill, no edema LUNGS: clear to auscultation bilaterally, no coarseness crackles or wheezing, no cough present CHEST: Symmetrical movement, no accessory muscle use, good tidal volume. ABDOMEN: Soft, no distention, no abdominal tenderness, no guarding or peritoneal signs, no organomegaly, no flank or suprapubic tenderness, active bowel tones. BACK: Normal curvature, nontender to palpation, no CVA tenderness on percussion EXTREMITIES: Decreased ROM of all extremities, held rigidly, no contractures, no deformities or joint effusions, left foot cool to touch delayed capillary refill 4-5 seconds NEUROLOGIC: Mumbling speech but able to stay he is in [facility], no facial droop, no lateralizing symptoms, neuropathy bilateral lower extremities PSYCH: Flat affect, mumbling speech inconsistently following commands, behaviorally stable Objective Labs Result Diagrams: 10/02/20 05:00 10/02/20 05:00 Labs: Laboratory Results - last 24 hr 10/02/20 10/02/20 05:00 05:00 WBC 5.5 RBC 3.51 L Hgb 10.6 L Hct 31.8 L MCV 90.5 MCH 30.0 MCHC 33.2 RDW 13.1 Plt Count 123 L Neut % (Auto) 69.0 Lymph % (Auto) 16.1 L Barren % (Auto) 10.9 Eos % (Auto) 3.5 Baso % (Auto) 0.5 Neut # (Auto) 3800 Lymph # (Auto) 900 L Barren # (Auto) 600 Eos # (Auto) 200 Baso # (Auto) 0 Sodium 140 Potassium 3.2 L Chloride 108 H Carbon Dioxide 28 BUN 15 Creatinine 0.77 Estimated GFR > 60.0 BUN/Creatinine Ratio 19.5 Glucose 87 Calcium 8.2 L Magnesium 1.8 Total Bilirubin 0.6 AST 26 ALT 11 Alkaline Phosphatase 74 Total Protein 6.0 L Albumin 3.0 L Globulin 3.0 Albumin/Globulin Ratio 1.0 Assessment & Plan Assessment & Plan narrative: This is 79-year-old male who was a resident of [facility] with a past medical history significant for dementia with behavioral disturbance, hypertension, prostate CA, chronic right lower extremity lymphedema, bowel and bladder incontinence, sacral pressure ulcer, who presented to ED for altered mental status and fever likely secondary to ineffective coverage of his sacral wound which grew and ESBL organism. 1. Acute dehydration, present on admission, resolved. -patient reportedly with poor p.o. intake, receiving furosemide 40 mg daily -Patient appeared clinically dry on arrival to ER, low normal blood pressure 105/55 decreasing down to 85/51 improved with IV fluids, BUN creatinine ratio of is 28.4. -patient was continued on IV fluids until adequately rehydrated. He is tolerating a diet. Will continue to hold his home diuretics for now and will likely resume on discharge, or prior to discharge if he develops signs of overload. 2. Sacral decubitus pressure ulceration with ESBL organism, chronic, present on admission, active -stage III sacral decubitus ulcer over the right ischial process, approximately 3 cm x 2 cm without surrounding erythema or swelling and no drainage. -wound culture obtained on 09/18/2020 positive for E coli and Proteus mirabilis. His E coli organism was noted to be ESBL positive. This will require treatment with meropenem and is likely the source of his fevers. Will continue treatment for a total of 7 days at this time which should likely be effective. -wound care per nursing protocol. 3. Severe dementia without behavioral disturbance, chronic, present on admission. Stable. -Patient appears to be at baseline level of function with impaired cognition, mumbling speech -will continue home regimen of Seroquel 12.5 mg twice daily. 4. Lymphedema, chronic, present on admission. Stable. -right foot with moderate swelling without pitting edema slight redness to the forefoot, protective boot in place, previous heel ulcer appears well-healed -will monitor lymphedema as Lasix is being held due to dehydration on admission as noted above. 5. BPH, present on admission stable. -Patient with history of prostate cancer status post prostatectomy and chemotherapy. -Continued patient's home regimen of tamsulosin 0.4 mg daily. 6. Normocytic anemia, chronic, present on admission. Stable. -hemoglobin is 10.9 on admission with previous hemoglobin of 10.5 on 09/20/2020. -No overt signs of bleeding, likely anemia of chronic disease. -Continued to monitor for signs of bleeding and CBC periodically. 7. Peripheral neuropathy, chronic, present on admission. Stable. -Patient with neuropathy following chemotherapy for prostate cancer. -No further treatment indicated at this time. 8. History of ESBL urinary tract infection. -UA is negative for infection this admission and patient is without symptoms. VTE prophylaxis: Bilateral SCDs, enoxaparin Diet: Dysphagia advanced regular diet. Code status: DNR DNI, the patient's is his surrogate decision maker and she is been contacted regarding this admission and agrees to IV fluids and antibiotics.
--- NOTE | 2020-10-02 14:04 | CM.DPNOTE ---
Addendum entered by Chante Gold 10/02/20 14:09: Faxed to [facility]. DM Original Note: Faxed FS and nursing notes per JIM[facility]. Scanned confirmation sheet.
--- NOTE | 2020-10-02 14:27 | PT-IP ANOTE ---
Received PT orders and reviewed chart. Pt was previously admitted to in November 2019. Per EMR, pt was dependent for all mobility including antoine transfers. [place] FIELD also confirmed with PT Joana yesterday that pt is non ambulatory and is dependent for transfers. Pt is at his baseline and No PT intervention is indicated. Discussed case with Dr. Thurston who is in agreement to discharge PT order.
[2020-10-02 15:41] VITALS: BP 117/69; PULSE 75; RESP 20; TEMP 36.6; O2SAT 95
--- NOTE | 2020-10-02 19:06 | PC.NURSE ---
Patient has been resting in bed this shift. No moaning or grimacing noted for discomfort. Patient w/hx of dementia, no agitation or aggression noted. Patient has been calm and cooperative.
[2020-10-02 19:56] VITALS: BP 105/66; PULSE 79; RESP 18; TEMP 36.9; O2SAT 96
[2020-10-03 01:15] VITALS: BP 126/85; PULSE 81; RESP 18; TEMP 36.8
[2020-10-03 04:34] LABS: Add Manual Diff / Slide Review NO; Basophils Absolute Auto 0 /uL (0-100); Basophils Percent Auto 0.4 % (0-2); Eosinophils Absolute Auto 300 /uL (0-450); Eosinophils Percent Auto 3.8 % (2-4); Hematocrit 31.7 % (41-53); Hemoglobin 10.6 g/dL (13.5-17.5); Lymphocytes Absolute Auto 1300 /uL (1100-4500); Lymphocytes Percent Auto 19.9 % (25-40); Mean Corpuscular HGB Conc 33.4 % (30-36); Mean Corpuscular Hemoglobin 30.4 PG (26-34); Mean Corpuscular Volume 90.8 fL (80-100); Monocytes Absolute Auto 700 /uL (0-900); Monocytes Percent Auto 10.7 % (3-14); Neutrophils Absolute Auto 4400 /uL (1500-7000); Neutrophils Percent Auto 65.2 % (50-75); Platelet Count 159 X10^3/uL (150-400); Red Blood Cell Count 3.49 X10^6/uL (4.5-5.9); Red Cell Distribution Width 12.9 % (11.6-14.8); White Blood Cell Count 6.8 X10^3/uL (4.5-11.0)
[2020-10-03 04:46] LABS: Alanine Aminotransferase 12 IU/L (<50); Alkaline Phosphatase 71 U/L (38-126); Aspartate Aminotransferase 25 IU/L (17-59); BUN Creatinine Ratio 21.9 (6-22); Bilirubin Total 0.5 mg/dL (0.2-1.3); Blood Urea Nitrogen 16 mg/dL (9-20); Calcium 8.1 mg/dL (8.4-10.2); Carbon Dioxide 27 mmol/L (22-32); Chloride 110 mmol/L (98-107); Estimated Glomerular Filt Rate > 60.0 mL/min (>60); Glucose 91 mg/dL (80-110); HEMOLYSIS < 15 (0-50); Magnesium 1.8 mg/dL (1.6-2.3); Potassium 3.2 mmol/L (3.4-5.1); Sodium 139 mmol/L (137-145)
[2020-10-03 05:00] VITALS: BP 118/74; PULSE 64; RESP 19; TEMP 36.3; O2SAT 96
--- NOTE | 2020-10-03 08:03 | CM.DPC ---
Addendum entered by Clarissa Romano R.N. 10/03/20 10:45: Dr. Thurston indicated that patient will need to be on antibiotics until Wednesday. Lupe at [facility] called and stated that she ran it by the director, and may be able to accept, but need to ensure that he has not had any agitation, or behavioral issues. She also wants to ensure that [facility] can accept him back. Left her a message and let her know that patient has not exhibited any agitation here at the hospital, confirmed with nurse, Isabel. Also, let her know that this residential case manager already talked to Teodora at [facility], who will accept back after IV ABO are completed. Addendum entered by Clarissa Romano R.N. 10/03/20 09:17: Spoke to Teodora at [facility], in admissions. Let her know that this residential case manager has attempted to get patient to facilities to complete antibiotics, but could most likely be ready to go back to [facility] tomorrow, if no other options, for Wednesday was the original DC date of antibiotic. Left a message with Guerita at [facility] as well, and have not yet heard back from [facility]. Original Note: DCP Cont: Left a message with Lupe at [facility] to see if they can accept. [facility] already denied. [facility] has been full, can give them a call as well. Other option is home tomorrow, back to [facility], as long as he is done with his antibiotics. P: DCP to follow up with [facility] and call [facility] as well. Clarissa Romano RN/Phlebotomy Tech
[2020-10-03 08:45] VITALS: BP 120/71; PULSE 63; RESP 16; TEMP 36.2; O2SAT 94
[2020-10-03] MEDS: TAMSULOSIN 0.4 MG CAPSULE PO (09:14)
[2020-10-03] MEDS: ASPIRIN EC 81 MG TABLET PO (09:14)
[2020-10-03] MEDS: QUETIAPINE 25 MG TABLET PO (09:14)
[2020-10-03] MEDS: MEROPENEM 500 MG in SODIUM CHLORIDE 0.9% 100 ML 200 ML IV (09:14)
[2020-10-03] MEDS: ENOXAPARIN 40 MG/0.4 ML SYRINGE SUBCUT (09:14)
--- NOTE | 2020-10-03 10:00 | DIET.PN ---
Dietary Progress Note RD f/u on 80y M c history significant for ongoing treatment for sacral decubitus, recurrent UTI with history of ESBL infection, hypertension, moderate to severe dementia with behavioral and cognitive impairment referred to nutrition for poor POs and BMI 21.7. Pts POs over past 2d have been 75-100%, BMI now 22.2. HT: 190.5cm WT: 8k0.6kg BMI: 22.2 Nutrition Diagnosis: Resolving inadequate oral intake (nourishments and hydration) r/t advanced dementia c behavioral and cognitive impairment aeb pt has chronic sacral decubitus, dehydrated on admit, recurrent UTI c e.coli in pressure sores. Interventions: 1. Will provide instructions in d/c paperwork for continuation of Ensure Enlive bid once d/c. Diet Order: Dysphagia advanced EER: 73g PRO (0.9g/kg per elder), 2,000kcal (25kcal/kg)
--- NOTE | 2020-10-03 11:08 | OT.IPNOTE ---
Pt at baseline level for all ADl needs,, pt able to do some grooming and self-feeding when feeling up to doin so , per staff at [facility]. Nursing staff here states no change. Therefore discharge OT eval orders.
--- NOTE | 2020-10-03 11:30 | CM.DPNOTE ---
Faxed medication list to [facility]. DM
--- NOTE | 2020-10-03 11:35 | CM.DPC ---
Addendum entered by Clarissa Romano R.N. 10/03/20 14:29: BLS here to olive picker patient. Teodora from [facility] called back and had just spoken to patient's , Berna. Stated, she is sorry if there was a misunderstanding, but they are hoping to take patient back after long term. Stated that she did discuss hospice with , who was anxious, stated, does that mean he's going to ? Teodora explained hospice role, and that he can go back to [facility] after he completes skilled. Stated that may be considering this. Updated Teodora that patient is at [facility], and may want to keep in contact with facility. Addendum entered by Clarissa Romano R.N. 10/03/20 12:48: Was able to get in touch with , Berna. She is aware of discharge, and explained to her that [facility] couldn't accept patient back for a while, but [facility] could. Gave her their phone number to call. Let her know that he would be picked up via ambulance, could not guarantee that it would be covered. Let her know that patient is going under his Medicare, not private pay. Explained that they may be able to work with patient, complete his antibiotic, and therapy if able.She does not think that she can come here before he leaves. Explained to her that he could not stay in the hospital when he could receive lower level of care. She is aware. Gave her [facility]'s phone number. Completed PASSR, orders, BLS olive picker set for [id number]. Updated nurseIsabel. Original Note: DCP Cont: Lupe at [facility] stated that they can accept patient. Attempted to get in touch with at [facility]. Left her a message. Updated Dr. Thurston. Patient will also need to go BLS, for he is bed bound. Will continue to attempt to reach . P: Plan is for [facility]. Patient will need to go via ambulance, he can't sit up in a chair. Will continue to attempt reaching . Clarissa Romano RN/Advisory Intern
--- NOTE | 2020-10-03 11:56 | P.DS_ITS ---
History of Present Illness History of Present Illness Date Patient Seen: 10/03/20 Time Patient Seen: 11:56 Chief complaint: Fever Narrative: As per DONALD Pagan: Mr. Jimi Montes is an 79-year-old male patient who resides at [facility] and has a history significant for ongoing treatment for sacral decubitus, recurrent UTI with history of ESBL infection, hypertension, moderate to severe dementia with behavioral and cognitive impairment, prostate cancer (S/P prostatectomy and chemotherapy) inguinal node dissection, bowel and bladder incontinence, neuropathy and right lower extremity lymphedema who sent to the ER for fever. The patient has been being receiving treatment for sacral decubitus. A wound culture was obtained on 09/18/2020 resulting in E coli and Proteus mirabilis both sensitive to ciprofloxacin which she has been receiving. The patient has other infectious history with frequent UTI however urinalysis unremarkable, he has no respiratory complaints and chest x-ray shows no infiltrates or opacities. The patient has severe dementia but appears to be below his typical baseline functioning. Patient is a DNR DNI and the patient's has been contacted who is agreeable to antibiotics and hydration. The patient is unable to contribute to a subjective evaluation. Upon arrival to the ER the patient has temperature of a 102.7?, heart rate of 85, blood pressure of 105/55, respirations of 18 saturating 95% on room air. Chest x-ray finds no acute cardiopulmonary disease and heart size appears small. On laboratory analysis he has white count of 8.5 with a slight left shift with mild increase in neutrophils, hemoglobin is 10.9, hematocrit of 32.5 and platelets of 196. He has a PT of 14.6, INR 1.3, PTT of 31. His sodium is 136 and potassium 3.6 with a BUN of 29 and a creatinine of 1.02. His BUN creatinine ratio is 28.4. His nonfasting glucose is 108. His liver functions are all wit hin normal limits and has a total protein of 6.5 an albumin of 3.3. His lactic acid is 0.8 and procalcitonin is less than 0.05. On urinalysis trace proteins and ketones and is negative for nitrates, leukocyte esterase, wbc's or bacteria. In the ER the patient is receiving normal saline. Blood cultures have been drawn and Rocephin 2 g IV given. The patient is admitted to the medicine service for fever of unclear etiology likely sacral decubitus. Discharge Providers Provider Date of admission: 09/30/20 10:34 Discharge Date: 10/03/20 Primary care physician: Bill Alarcon MD Consults: 09/29/20 23:19 Consult to Dietitian, Adult Routine Comment: Reason For Exam: Poor p.o. intake, BMI 21.7 Consult to Discharge Planning Routine Comment: Consult to Occupational Therapy Evaluate & Treat Comment: Physician Instructions: Evaluate and treat Consult to Physical Therapy Evaluate & Treat Comment: Physician Instructions: Evaluate and Treat 10/02/20 10:31 Consult to Occupational Therapy Evaluate & Treat Comment: Physician Instructions: Evaluate and treat Consult to Physical Therapy Evaluate & Treat Comment: Physician Instructions: Evaluate and Treat Discharge provider: Henry Thurston DO Summary Hospital Course Discharge Diagnosis: Please see hospital course by problem list noted below. Hospital Course: This is 79-year-old male who was a resident of [facility] with a past medical history significant for dementia with behavioral disturbance, hypertension, prostate CA, chronic right lower extremity lymphedema, bowel and bladder incontinence, sacral pressure ulcer, who presented to ED for fever and lethargy likely secondary to ineffective coverage of his sacral wound which grew an ESBL organism. 1. Acute dehydration, present on admission, resolved. -patient reportedly with poor p.o. intake, receiving furosemide 40 mg daily previously. -Patient appeared clinically dry on arrival to ER, low normal blood pressure 105/55 decreasing down to 85/51 improved with IV fluids, BUN creatinine ratio of is 28.4. -patient was continued on IV fluids until adequately rehydrated. He is tolerating a diet. On discharge will continue at 20 mg daily instead of 40. 2. Sacral decubitus pressure ulceration with ESBL organism, chronic, present on admission, active -stage III sacral decubitus ulcer over the right ischial process, approximately 3 cm x 2 cm without surrounding erythema or swelling and no drainage. -wound culture obtained on 09/18/2020 positive for E coli and Proteus mirabilis. His E coli organism was noted to be ESBL positive. This will require treatment with meropenem and is likely the source of his fevers. Recommend 7 day total course, to end 10/07/20 on morning dose. Meropenem dosing is 500 mg q8 hours. -wound care per nursing protocol. Patient follows with wound care, Dr. High, at [facility]. Therapy beyond meropenem to be determined by wound care. 3. Severe dementia without behavioral disturbance, chronic, present on admission. Stable. -Patient appears to be at baseline level of function with impaired cognition, mumbling speech -will continue home regimen of Seroquel 12.5 mg twice daily. 4. Lymphedema, chronic, present on admission. Stable. -right foot with moderate swelling without pitting edema slight redness to the forefoot, protective boot in place, previous heel ulcer appears well-healed -continue lasix at 20 mg daily as dede meza. 5. BPH, present on admission stable. -Patient with history of prostate cancer status post prostatectomy and chemot herapy. -Continued patient's home regimen of tamsulosin 0.4 mg daily. 6. Normocytic anemia, chronic, present on admission. Stable. -hemoglobin is 10.9 on admission with previous hemoglobin of 10.5 on 09/20/2020. -No overt signs of bleeding, likely anemia of chronic disease. 7. Peripheral neuropathy, chronic, present on admission. Stable. -Patient with neuropathy following chemotherapy for prostate cancer. -No further treatment indicated at this time. 8. History of ESBL urinary tract infection. -UA is negative for infection this admission and patient is without symptoms. Code status: DNR DNI, the patient's is his surrogate decision maker. Exam Vital Signs (past 8 hours): - 10/03/20 05:00 10/03/20 08:45 Temperature 97.3 F L 97.1 F L Pulse Rate 64 63 Respiratory Rate 19 16 Blood Pressure 118/74 120/71 Pulse Oximetry 96 94 Oxygen Delivery Method Room Air Oxygen Flow Rate 0 Narrative Exam Narrative: GENERAL APPEARANCE: well developed, adequately nourished, elderly male in no acute distress. HEENT: Normocephalic, PERRLA, conjunctiva clear, no rhinorrhea, mucous membranes are moist and pink without lesions. NECK/THYROID: Decreased ROM, nontender to palpation, no JVD, no thyromegaly, t rachea midline. LYMPH NODES: no cervical or supraclavicular lymphadenopathy. SKIN: [place], warm and dry, 2 cm x 3 cm sacral decubitus stage III, HEART: regular rate and rhythm, S1-S2, no murmur, no rubs or gallops, brisk capillary refill, no edema LUNGS: clear to auscultation bilaterally, no coarseness crackles or wheezing, no cough present CHEST: Symmetrical movement, no accessory muscle use, good tidal volume. ABDOMEN: Soft, no distention, no abdominal tenderness, no guarding or peritoneal signs, no organomegaly, no flank or suprapubic tenderness, active bowel tones. BACK: Normal curvature, nontender to palpation, no CVA tenderness on percussion EXTREMITIES: Decreased ROM of all extremities, held rigidly, no contractures, no deformities or joint effusions, left foot cool to touch delayed capillary refill 4-5 seconds NEUROLOGIC: Mumbling speech but able to stay he is in [facility], no facial droop, no lateralizing symptoms, neuropathy bilateral lower extremities PSYCH: Flat affect, mumbling speech inconsistently following commands, behaviorally stable Objective Labs Result Diagrams: 10/03/20 04:15 10/03/20 04:15 Labs: Laboratory Results - last 24 hr 10/03/20 10/03/20 04:15 04:15 WBC 6.8 RBC 3.49 L Hgb 10.6 L Hct 31.7 L MCV 90.8 MCH 30.4 MCHC 33.4 RDW 12.9 Plt Count 159 Neut % (Auto) 65.2 Lymph % (Auto) 19.9 L Pershing % (Auto) 10.7 Eos % (Auto) 3.8 Baso % (Auto) 0.4 Neut # (Auto) 4400 Lymph # (Auto) 1300 Pershing # (Auto) 700 Eos # (Auto) 300 Baso # (Auto) 0 Sodium 139 Potassium 3.2 L Chloride 110 H Carbon Dioxide 27 BUN 16 Creatinine 0.73 Estimated GFR > 60.0 BUN/Creatinine Ratio 21.9 Glucose 91 Calcium 8.1 L Magnesium 1.8 Total Bilirubin 0.5 AST 25 ALT 12 Alkaline Phosphatase 71 Total Protein 6.0 L Albumin 3.0 L Globulin 3.0 Albumin/Globulin Ratio 1.0 Discharge Plan Discharge Plan Patient Disposition: SNF Transfer to: [facility] Provider Discharge Comment: This is 79-year-old male who was a resident of [facility] with a past medical history significant for dementia with behavioral disturbance, hypertension, prostate CA, chronic right lower extremity lymphedema, bowel and bladder incontinence, sacral pressure ulcer, who presented to ED for altered mental status and fever likely secondary to ineffective coverage of his sacral wound which grew an ESBL organism. 1. Acute dehydration, present on admission, resolved. -patient reportedly with poor p.o. intake, receiving furosemide 40 mg daily -Patient appeared clinically dry on arrival to ER, low normal blood pressure 105/55 decreasing down to 85/51 improved with IV fluids, BUN creatinine ratio of is 28.4. -patient was continued on IV fluids until adequately rehydrated. He is tolerating a diet. On discharge will continue at 20 mg daily instead of 40. 2. Sacral decubitus pressure ulceration with ESBL organism, chronic, present on admission, active -stage III sacral decubitus ulcer over the right ischial process, approximately 3 cm x 2 cm without surrounding erythema or swelling and no drainage. -wound culture obtained on 09/18/2020 positive for E coli and Proteus mirabilis. His E coli organism was noted to be ESBL positive. This will require treatment with meropenem and is likely the source of his fevers. Recommend 7 day total course, to end 10/07/20 on morning dose. Meropenem dosing is 500 mg q8 hours. -wound care per nursing protocol. Patient follows with wound care, Dr. High, at [facility]. Therapy beyond meropenem to be determined by wound care. 3. Severe dementia without behavioral disturbance, chronic, present on admission. Stable. -Patient appears to be at baseline level of function with impaired cognition, mumbling speech -will continue home regimen of Seroquel 12.5 mg twice daily. 4. Lymphedema, chronic, present on admission. Stable. -right foot with moderate swelling without pitting edema slight redness to the forefoot, protective boot in place, previous heel ulcer appears well-healed -continue lasix at 20 mg daily as notedmoise meza. 5. BPH, present on admission stable. -Patient with history of prostate cancer status post prostatectomy and chemotherapy. -Continued patient's home regimen of tamsulosin 0.4 mg daily. 6. Normocytic anemia, chronic, present on admission. Stable. -hemoglobin is 10.9 on admission with previous hemoglobin of 10.5 on 09/20/2020. -No overt signs of bleeding, likely anemia of chronic disease. 7. Peripheral neuropathy, chronic, present on admission. Stable. -Patient with neuropathy following chemotherapy for prostate cancer. -No further treatment indicated at this time. 8. History of ESBL urinary tract infection. -UA is negative for infection this admission and patient is without symptoms. Code status: DNR DNI, the patient's is his surrogate decision maker. Discharge orders & Medications Prescriptions: New meropenem 500 mg Recon Soln 500 mg IV Q8H 4 Days Qty: 12 RF: 0 furosemide [Lasix] 20 mg tablet 20 mg PO DAILY 30 Days Qty: 30 RF: 0 Continued aspirin 81 mg Tablet,Delayed Release (Dr/Ec) 81 mg PO DAILY RF: 0 cyanocobalamin (vitamin B-12) [Vitamin B-12] 500 mcg Tablet 500 mcg PO DAILY RF: 0 cholecalciferol (vitamin D3) [Vitamin D3] 1,000 unit Tablet 1,000 unit PO DAILY RF: 0 tamsulosin [Flomax] 0.4 mg Capsule 0.4 mg PO DAILY Qty: 30 RF: 0 acetaminophen [Tylenol Arthritis Pain] 650 mg tablet extended release 650 mg PO TID RF: 0 ascorbic acid (vitamin C) 500 mg Tablet 500 mg PO DAILY RF: 0 clotrimazole 1 % Cream 1 applic TOPICAL TID PRN (Reason: groin rash) RF: 0 potassium chloride [Klor-Con M20] 20 mEq Tablet,Er Particles/Crystals 40 meq PO DAILYCC Qty: 30 RF: 0 bisacodyl 10 mg Suppository 10 mg MS DAILY PRN (Reason: Constipation) Qty: 10 RF: 0 docusate sodium [DOK] 100 mg Capsule 100 mg PO BID PRN (Reason: Constipation) Qty: 60 RF: 0 nystatin 100,000 unit/gram Powder 5 applic TOPICAL TID PRN (Reason: Rash) RF: 0 quetiapine [Seroquel] 25 mg tablet 25 mg PO BID RF: 0 Discontinued furosemide 40 mg Tablet 40 mg PO DAILY Qty: 0 RF: 0 ciprofloxacin HCl 250 mg Tablet 750 mg PO Q12H RF: 0 Follow up/Referrals: Bill Alarcon MD [Primary Care Provider] - (SNF TO SCHEDULE FOLLOW APPOINTMENT) Discharge Health Status Multidrug resistant organism: Other Precautions: Contact Diet/Activity/Treatments Diet: Diet as Tolerated and Regular Liquid consistency: Honey Consistency Diet comment: Dyphagia diet, honey thick Enlive BID Skin/Wound/Dressing Care Other wound treatment: decubitus ulcer Visit Report/Discharge Packet Instructions: How to Take Care of Your Feet If You Have Diabetes, How to Prevent Pressure Ulcers, DI for Pressure Injuries, How to Prevent Falls, DI for Wound Infection Discharge Data Primary Care Provider: Bill Alarcon V
[2020-10-03 12:16] VITALS: BP 105/60; PULSE 70; RESP 14; TEMP 36.1; O2SAT 96
[2020-10-03 13:07] LABS: COVID19 -Nasal RAPID Negative (Negative)
--- NOTE | 2020-10-03 14:57 | PC.NURSE ---
Addendum entered by Isabel Fairbanks R.N. 10/03/20 15:00: Pt has been antoine lifted to stretcher secured and escorted out of the hospital by medical transport at approx. 1410. Original Note: Pt has recieved orders to discharge from the care of the hospital and rehabilitate at [facility] rehab. Pt has been changed of soiled brief, wound to his sacrum has been cleaned with NS and clean gentle adhesive foam dressing applied. Report has been called and provided to JIMBO Napoles at [facility].
== END 2020-10-03 14:10 | DRG 593 ==
LOC: ED 22:44 → AC 22:59
PROVIDERS: Internal Medicine; Admitting Provider Nurse Practitioner Adult Health; Emergency Provider Emergency Medicine; Family Provider Internal Medicine; PCP Internal Medicine; Visit Provider Nurse Practitioner Adult Health
DX: L89.153 Pressure ulcer of sacral region, stage 3 (principal); Z16.12 Extended spectrum beta lactamase (ESBL) resistance; F03.91 Unspecified dementia, unspecified severity, with behavioral disturbance; E86.0 Dehydration; I89.0 Lymphedema, not elsewhere classified; N40.0 Benign prostatic hyperplasia without lower urinary tract symptoms; D64.9 Anemia, unspecified; I10 Essential (primary) hypertension; G62.9 Polyneuropathy, unspecified; Z66 Do not resuscitate; Z85.46 Personal history of malignant neoplasm of prostate
CPT/HCPCS: 36415; 71045; 80048; 80053; 81001; 83605; 83735; 84145; 85025; 85610; 85730; 86140; 87040; 87633; 87635; 96361; 96365; 99284; G0378; J0295; J0696; J1650; J2185; J3480